=== PATIENT | female | born 1950 | race Caucasian/White ===

== ENCOUNTER 2017-11-29 14:08 | Inpatient (IN) | payer OTHER ==
--- NOTE | 2017-11-29 14:34 | PDOC ---
Rapid Medical Evaluation Chief Complaint: Pain Medical Evaluation: Allergies Allergy/AdvReac Type Severity Reaction Status Date / Time No Known Allergies Allergy Verified 06/03/16 15:07 Vital Signs Temp Pulse Resp BP Pulse Ox 98.3 F 92 H 36 H 133/72 86 L 11/29/17 14:15 11/29/17 14:15 11/29/17 14:15 11/29/17 14:15 11/29/17 14:15 11/29/17 14:31 I have performed a brief in-person evaluation of this patient. The patient presents with a chief complaint of: Worsening abd distension. H/o HTN, HCV cirrhosis, no recent LVP, unable to bear weight. Sent from PMD, Dr Arango Pertinent physical exam findings: Hypoxic and tachypneic w/ abd distension I have ordered the following:labs/ekg/cxr The patient will proceed to the ED for further evaluation. 11/29/17 14:32 11/29/17 14:34 Discharge Disposition - Diagnosis Ascites Qualifiers: Ascites type: other type Qualified Code(s): R18.8 - Other ascites - Referrals Referrals: Jose Manuel Arango MD, MD [Primary Care Provider] - - Patient Instructions - Post Discharge Activity
[2017-11-29 14:55] VITALS: BMI 27.4
[2017-11-29 14:58] LABS: BASO % 0.7 % (0-2.0); HEMATOCRIT 36.7 % (32.4-45.2); HEMOGLOBIN 12.6 GM/dL (10.7-15.3); LYMPH % 14.5 % (8-40); MCH 32.2 pg (25.7-33.7); MCHC 34.5 g/dl (32.0-36.0); MEAN CELL VOLUME 93.4 fl (80-96); MEAN PLT VOLUME 8.4 fl (7.5-11.1); MONO % 12.6 % (3.8-10.2); NEUT % 71.2 % (42.8-82.8); PLATELET COUNT 140 K/MM3 (134-434); RBC 3.93 M/mm3 (3.60-5.2); RDW 15.2 % (11.6-15.6); WHITE BLOOD COUNT 7.7 K/mm3 (4.0-10.0)
[2017-11-29 15:24] LABS: ALBUMIN 2.5 g/dl (3.4-5.0); ANION GAP 10 (8-16); BLOOD UREA NITROGEN 13 mg/dL (7-18); CALCIUM 8.7 mg/dL (8.5-10.1); CHLORIDE 104 mmol/L (98-107); CO2 24 mmol/L (21-32); CREATININE 0.8 mg/dL (0.55-1.02); GLUCOSE,RANDOM 124 mg/dL (74-106); LIPASE 62 U/L (73-393); SGPT/ALT 67 U/L (12-78); SODIUM 138 mmol/L (136-145)
[2017-11-29 15:25] LABS: ALK PHOS 75 U/L (45-117); BILIRUBIN,TOTAL 2.4 mg/dL (0.2-1.0); TOT PROT 7.9 g/dl (6.4-8.2)
[2017-11-29 15:44] LABS: POTASSIUM 4.8 mmol/L (3.5-5.1); SGOT/AST 214 U/L (15-37)
--- NOTE | 2017-11-29 16:08 | PDOC ---
History of Present Illness - General History Source: Patient, Spouse Exam Limitations: Dementia - History of Present Illness Initial Comments: 11/29/17 16:52 The patient is a 67 year old female, with a significant past medical history of dementia, chronic UTI, hypertension, cirrhosis, hepatitis C, and anxiety, who presents to the emergency department with abdominal distension, increased dyspnea and cough for several days. Per significant other, he has noted patient has increased dyspnea on exertion, to the point where she can only go up 3-4 stairs at a time before she has to stop to catch her breath. Partner also notes patient has a dry nonproductive cough, but denies any fever, chills, headache, or dizziness. Partner notes increased abdominal distension, but states patient has not complained of abdominal pain, nausea, vomiting, diarrhea, or constipation. Patient saw her PCP Dr. Arango, who noted abdominal distension and recommended further evaluation in the ER. Patient was evaluated by GI in the past, who stated patients evaluation was normal. Patient denies any chest pain, diaphoresis, or palpitations. Patient denies any dysuria, hematuria, frequency, or urgency. She denies any recent travel or sick contacts. Allergies: NKDA Past Surgical History: None reported Social History: Former ETOH use. Non smoker. No recreational drug use. PCP: Dr. Arango <Jose Mcdonough - Last Filed: 11/29/17 16:52> <Ryann Coelho - Last Filed: 11/29/17 17:26> - General Chief Complaint: Pain Stated Complaint: ABD PAIN SENT BY PCP Time Seen by Provider: 11/29/17 14:35 Past History <Jose Mcdonough - Last Filed: 11/29/17 16:52> - Past Medical History Anemia: No Asthma: No Cancer: No Cardiac Disorders: No CVA: No COPD: No CHF: No Dementia: Yes Diabetes: No GI Disorders: No Disorders: Yes (CHRONIC UTI) HTN: Yes Hypercholesterolemia: No Liver Disease: Yes (CIRRHOSIS, HEP C) Psychiatric Problems: Yes (ANXIETY) Seizures: No Thyroid Disease: No - Surgical History Abdominal Surgery: No Appendectomy: No Cardiac Surgery: No Cholecystectomy: No Lung Surgery: No Neurologic Surgery: No Orthopedic Surgery: No - Suicide/Smoking/Psychosocial Hx Smoking History: Never smoked Have you smoked in the past 12 months: No Hx Alcohol Use: No Drug/Substance Use Hx: No Substance Use Type: None Hx Substance Use Treatment: No <Ryann Coelho - Last Filed: 11/29/17 17:26> - Past Medical History Allergies/Adverse Reactions: Allergies Allergy/AdvReac Type Severity Reaction Status Date / Time No Known Allergies Allergy Verified 06/03/16 15:07 Home Medications: Ambulatory Orders Hydrocodone/Acetaminophen [Vicodin 5-300 mg Tablet] 1 each PO DAILY PRN Amlodipine Besylate [Norvasc -] 10 mg PO DAILY 11/01/14 Metoprolol Succinate [Toprol XL -] 25 mg PO DAILY 11/01/14 Risperidone [Risperdal] 2 mg PO DAILY 11/01/14 traMADol HCL [Ultram -] 50 mg PO BID 11/01/14 Oxybutynin Chloride [Oxybutynin Chloride ER] 15 mg PO DAILY #30 tab.er.24 Zolpidem Tartrate [Ambien] 5 mg PO HS #30 tablet 11/04/14 Cephalexin Monohydrate [Keflex -] 500 mg PO BID #14 capsule 06/07/16 Lidocaine 5% Patch [Lidoderm -] 1 patch TP DAILY #20 patch 06/07/16 Review of Systems - Review of Systems Able to Perform ROS?: Yes Comments:: 11/29/17 16:52 GENERAL/CONSTITUTIONAL: No fever or chills. No weakness. HEAD, EYES, EARS, NOSE AND THROAT: No change in vision. No ear pain or discharge. No sore throat. GASTROINTESTINAL: +Abdominal distension. No nausea, vomiting, diarrhea or constipation. GENITOURINARY: No dysuria, frequency, or change in urination. CARDIOVASCULAR: +Shortness of breath. No chest pain. RESPIRATORY: +Shortness of breath on exertion, dry cough. No wheezing, or hemoptysis. MUSCULOSKELETAL: No joint or muscle swelling or pain. No neck or back pain. SKIN: No rash NEUROLOGIC: No headache, vertigo, loss of consciousness, or change in strength/ sensation. ENDOCRINE: No increased thirst. No abnormal weight change. HEMATOLOGIC/LYMPHATIC: No anemia, easy bleeding, or history of blood clots. ALLERGIC/IMMUNOLOGIC: No hives or skin allergy. <Jose Mcdonough - Last Filed: 11/29/17 16:52> *Physical Exam - Vital Signs Last Vital Signs Temp Pulse Resp BP Pulse Ox 98.3 F 92 H 36 H 133/72 86 L 11/29/17 14:15 11/29/17 14:15 11/29/17 14:15 11/29/17 14:15 11/29/17 14:15 - Physical Exam Comments: 11/29/17 16:52 Constitutional: Awake, alert, oriented to self. Mild respiratory distress. Initially hypoxic to 86 on room air, now on 2 L appears to be breathing better and able to lay flat Head: Normocephalic. Atraumatic Eyes: PERRL. EOMI. Conjunctivae are not pale. ENT: Mucous membranes are moist and intact. Posterior pharynx without exudates or erythema. Uvula midline. Neck: Supple. Full ROM. No lymphadenopathy. Cardiovascular: Systolic ejection murmur. Regular rate. Regular rhythm. Distal pulses are 2+ and symmetric. Pulmonary/Chest: Soft rales at the bases bilaterally. No wheezing, or rhonchi. Abdominal: Abdominal distension, with fluid wave and ascites. There is no tenderness. No rebound, guarding or rigidity. No organomegaly. No palpable masses. Back: No CVA tenderness. Musculoskeletal: 3+ pitting edema bilaterally. No cyanosis. No clubbing. Full range of motion in all extremities. No calf tenderness. Radial/pedal pulses are intact and 2+ bilaterally Skin: Skin is warm and dry. No petechiae. No purpura. Neurological: Alert and oriented to person, place, and time. Cranial nerves II -XII are grossly intact. Normal speech. Strength is grossly symmetric. No sensory deficits. Psychiatric: Good eye contact. Normal interaction, affect and behavior. <Jose Mcdonough - Last Filed: 11/29/17 16:52> - Vital Signs Last Vital Signs Temp Pulse Resp BP Pulse Ox 98.3 F 92 H 36 H 133/72 86 L 11/29/17 14:15 11/29/17 14:15 11/29/17 14:15 11/29/17 14:15 11/29/17 14:15 <Ryann Coelho - Last Filed: 11/29/17 17:26> Heart Score/ECG Review - ECG Intrepretation Comment:: 11/29/17 16:24 sinus at 89, nl axis, nl interval, t wave flattening diffusely, mild st depression v5-6 <Ryann Coelho - Last Filed: 11/29/17 17:26> ED Treatment Course - LABORATORY CBC & Chemistry Diagram: 11/29/17 14:48 11/29/17 14:48 - ADDITIONAL ORDERS Additional order review: Laboratory Results 11/29/17 14:48 Sodium 138 Potassium 4.8 Chloride 104 Carbon Dioxide 24 Anion Gap 10 BUN 13 Creatinine 0.8 Creat Clearance w eGFR > 60 Random Glucose 124 H Calcium 8.7 Total Bilirubin 2.4 H D AST 214 H ALT 67 Alkaline Phosphatase 75 Total Protein 7.9 Albumin 2.5 L Lipase 62 L 11/29/17 14:48 RBC 3.93 MCV 93.4 MCHC 34.5 RDW 15.2 MPV 8.4 Neutrophils % 71.2 Lymphocytes % 14.5 D Monocytes % 12.6 H Eosinophils % 1.0 Basophils % 0.7 <Jose Mcdonough - Last Filed: 11/29/17 16:52> - LABORATORY CBC & Chemistry Diagram: 11/29/17 14:48 11/29/17 14:48 - ADDITIONAL ORDERS Additional order review: Laboratory Results 11/29/17 14:48 Sodium 138 Potassium 4.8 Chloride 104 Carbon Dioxide 24 Anion Gap 10 BUN 13 Creatinine 0.8 Creat Clearance w eGFR > 60 Random Glucose 124 H Calcium 8.7 Total Bilirubin 2.4 H D AST 214 H ALT 67 Alkaline Phosphatase 75 Total Protein 7.9 Albumin 2.5 L Lipase 62 L 11/29/17 14:48 RBC 3.93 MCV 93.4 MCHC 34.5 RDW 15.2 MPV 8.4 Neutrophils % 71.2 Lymphocytes % 14.5 D Monocytes % 12.6 H Eosinophils % 1.0 Basophils % 0.7 <Ryann Coelho - Last Filed: 11/29/17 17:26> Medical Decision Making - Medical Decision Making 11/29/17 16:53 First call placed to Dr. Ramey at 16:27. Case discussed at this time. <Jose Mcdonough - Last Filed: 11/29/17 16:52> - Medical Decision Making 11/29/17 16:18 a/p: 67yo female with BRAY, SOB, Cough, abd distension, hx of hep c, cirrhosis -generalized anasarca on exam -will need IR paracentesis -cough is nonproductive, no fevers/chills -hypoxic in triage, now on 2L nc -will need admission for liver failure, ascites, paracentesis, new murmur on heart exam -will need GI eval and cards eval -PMD dr. Arango -IR paracentesis ordered -no gi bleeding -denies urinary complaints - 11/29/17 16:[address] Ramey who accepts pt to service consults placed to DR. Moffett and dr. cassidy Paracentesis ordered 11/29/17 16:58 family at the bedside updated on the plan <Ryann Coelho - Last Filed: 11/29/17 17:26> *DC/Admit/Observation/Transfer - Attestations Scribe Attestion: 11/29/17 16:53 Documentation prepared by Jose Mcdonough, acting as healthcare or medical for Ryann Coelho DO. <Jose Mcdonough - Last Filed: 11/29/17 16:52> - Discharge Dispostion Decision to Admit order: Yes - Attestations Physician Attestion: 11/29/17 16:32 I, Dr. Ryann Coelho DO, attest that this document has been prepared under my direction and personally reviewed by me in its entirety. I further attest, that it accurately reflects all work, treatment, procedures and medical decision -making performed by me. <Ryann Coelho - Last Filed: 11/29/17 17:26> Diagnosis at time of Disposition: 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, Dyspnea, Hypoxia Ascites Qualifiers: Ascites type: other type Qualified Code(s): R18.8 - Other ascites - Discharge Dispostion Condition at time of disposition: Guarded
[2017-11-29] MEDS ORDERED: FUROSEMIDE 40 MG/4 ML INJECTABLE VIAL IVPUSH ONE (16:28)
[2017-11-29] MEDS ORDERED: FUROSEMIDE 40 MG/4 ML INJECTABLE VIAL ONE (17:01)
[2017-11-29 17:16] LABS: PH,URINE 6.5 (5.0-8.0); URINE APPEARANCE CLEAR; URINE BILIRUBIN NEGATIVE (<2.0 mg/dL); URINE COLOR YELLOW; URINE GLUCOSE (UA) NEGATIVE (NEGATIVE); URINE KETONE NEGATIVE (NEGATIVE); URINE LEUK ESTERASE NEGATIVE (NEGATIVE); URINE NITRITE NEGATIVE (NEGATIVE); URINE PROTEIN NEGATIVE (NEGATIVE); URINE UROBILINOGEN NORMAL mg/dL (0.2-1.0)
[2017-11-29 17:26] LABS: INR 1.43 (0.82-1.09); PROTHROMBIN TIME (PATIENT) 16.2 SEC (9.7-13.0)
[2017-11-29 17:51] LABS: ARTERIAL BLOOD GAS PCO2 35.8 mmHg (35-45); ARTERIAL BLOOD GAS PO2 66.2 mmHg (80-100); ARTERIAL BLOOD GAS pH 7.47 (7.35-7.45)
[2017-11-29 17:52] LABS: ALLENS TEST POSITIVE; ARTERIAL BLD GAS O2 SATURATION 92.7 % (90-98.9); ARTERIAL BLOOD GAS BASE EXCESS 2.7 meq/l (-2-2)
[2017-11-29] MEDS: HEPARIN NA (PORCINE) 5,000 UNITS/ML 1ML VIAL SQ SCH (22:08)
[2017-11-30 08:57] LABS: ALBUMIN 2.2 g/dl (3.4-5.0); ALK PHOS 67 U/L (45-117); ANION GAP 9 (8-16); BILIRUBIN,TOTAL 2.2 mg/dL (0.2-1.0); BLOOD UREA NITROGEN 10 mg/dL (7-18); CHLORIDE 105 mmol/L (98-107); CHOLESTEROL 162 mg/dL (50-200); CO2 28 mmol/L (21-32); CREATININE 0.4 mg/dL (0.55-1.02); HDL CHOLESTEROL 34 mg/dL (40-60); MAGNESIUM 1.7 mg/dL (1.8-2.4); SGOT/AST 151 U/L (15-37); SGPT/ALT 58 U/L (12-78); SODIUM 142 mmol/L (136-145); TOT PROT 6.5 g/dl (6.4-8.2); TRIGLYCERIDES 61 mg/dL (35-160)
[2017-11-30 09:04] LABS: BASO % 0.8 % (0-2.0); EOS % 3.1 % (0-4.5); HEMATOCRIT 33.6 % (32.4-45.2); HEMOGLOBIN 11.7 GM/dL (10.7-15.3); LYMPH % 14.7 % (8-40); MCH 32.3 pg (25.7-33.7); MCHC 34.8 g/dl (32.0-36.0); MEAN CELL VOLUME 92.9 fl (80-96); MEAN PLT VOLUME 8.4 fl (7.5-11.1); MONO % 8.9 % (3.8-10.2); NEUT % 72.5 % (42.8-82.8); PLATELET COUNT 106 K/MM3 (134-434); RBC 3.61 M/mm3 (3.60-5.2); RDW 15.3 % (11.6-15.6); WHITE BLOOD COUNT 5.2 K/mm3 (4.0-10.0)
--- NOTE | 2017-11-30 09:40 | HP ---
Admitting History and Physical - Admission History of Present Illness: 67 year old female, with a significant past medical history of dementia, chronic UTI, hypertension, cirrhosis, hepatitis C, and anxiety, who presents to the emergency department with abdominal distension, increased dyspnea and cough for several days. Per significant other, he has noted patient has increased dyspnea on exertion, to the point where she can only go up 3-4 stairs at a time before she has to stop to catch her breath. Partner also notes patient has a dry nonproductive cough, but denies any fever, chills, headache, or dizziness. Partner notes increased abdominal distension, but states patient has not complained of abdominal pain, nausea, vomiting, diarrhea, or constipation. Patient saw her PCP Dr. Arango, who noted abdominal distension and recommended further evaluation in the ER. 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 Gastrointestinal: Yes: Other (cirrhosis) Infectious Disease: Yes: Other (hep c) Psych: Yes: Anxiety, Other - Smoking History Smoking history: Never smoked Have you smoked in the past 12 months: No - Alcohol/Substance Use Hx Alcohol Use: No History of Substance Use: reports: None - Social History ADL: Family Assistance History of Recent Travel: No Home Medications - Allergies Allergies/Adverse Reactions: Allergies Allergy/AdvReac Type Severity Reaction Status Date / Time No Known Allergies Allergy Verified 06/03/16 15:07 - Home Medications Home Medications: Ambulatory Orders Hydrocodone/Acetaminophen [Vicodin 5-300 mg Tablet] 1 each PO DAILY PRN Amlodipine Besylate [Norvasc -] 10 mg PO DAILY 11/01/14 Metoprolol Succinate [Toprol XL -] 25 mg PO DAILY 11/01/14 Risperidone [Risperdal] 2 mg PO DAILY 11/01/14 traMADol HCL [Ultram -] 50 mg PO BID 11/01/14 Oxybutynin Chloride [Oxybutynin Chloride ER] 15 mg PO DAILY #30 tab.er.24 Zolpidem Tartrate [Ambien] 5 mg PO HS #30 tablet 11/04/14 Cephalexin Monohydrate [Keflex -] 500 mg PO BID #14 capsule 06/07/16 Lidocaine 5% Patch [Lidoderm -] 1 patch TP DAILY #20 patch 06/07/16 Physical Examination Vital Signs: Vital Signs Temperature 98 F 06/13/18 21:00 Pulse Rate 78 11/29/17 21:00 Respiratory Rate 20 11/29/17 21:00 Blood Pressure 125/69 11/29/17 21:00 O2 Sat by Pulse Oximetry (%) 92 L 11/29/17 21:00 Cardiovascular: Yes: Murmur, S1, S2 Respiratory: Yes: On Nasal O2, Rales Gastrointestinal: Yes: Normal Bowel Sounds, Soft, Ascites, Distention Edema: No Neurological: Yes: Alert, Confusion Labs: CBC, BMP 11/29/17 14:48 11/29/17 14:48 Imaging - Results X-ray: Report Reviewed Problem List - Problems (1) Ascites Assessment/Plan: CT SCAN GI CONSULT PARACENTESIS DIURESIS Code(s): R18.8 - OTHER ASCITES Qualifiers: Ascites type: other type Qualified Code(s): R18.8 - Other ascites (2) CHF (congestive heart failure) Assessment/Plan: -IV LASIX -ECHO -CARDIO -FOLLOW LABS Code(s): I50.9 - HEART FAILURE, UNSPECIFIED (3) Murmur Assessment/Plan: -ECHO Code(s): R01.1 - CARDIAC MURMUR, UNSPECIFIED (4) 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
[2017-11-30] MEDS ORDERED: metoPROLOL SUCCINATE 25 MG TAB.SR.24H (FP) PO SCH (10:00)
[2017-11-30] MEDS: HEPARIN NA (PORCINE) 5,000 UNITS/ML 1ML VIAL SQ SCH ×3 (10:34→22:00)
[2017-11-30 10:46] LABS: GLUCOSE,RANDOM 80 mg/dL (74-106)
[2017-11-30 10:47] LABS: POTASSIUM 2.8 mmol/L (3.5-5.1)
--- NOTE | 2017-11-30 11:13 | EKG ---
Test Reason : Blood Pressure : / mmHG Vent. Rate : 089 BPM Atrial Rate : 089 BPM P-R Int : 148 ms QRS Dur : 088 ms QT Int : 396 ms P-R-T Axes : 099 069 091 degrees QTc Int : 481 ms POOR DATA QUALITY, INTERPRETATION MAY BE ADVERSELY AFFECTED NORMAL SINUS RHYTHM NONSPECIFIC ST ABNORMALITY ABNORMAL ECG WHEN COMPARED WITH ECG OF 03-JUN-2016 17:16, NO SIGNIFICANT CHANGE WAS FOUND Confirmed by CLAIRE WASHINGTON MD ([id number]) on 11/30/2017 11:12:45 AM Referred By: Confirmed By:CLAIRE WASHINGTON MD
[2017-11-30] MEDS: FUROSEMIDE 40 MG/4 ML INJECTABLE VIAL IVPUSH SCH (12:45)
[2017-11-30] MEDS: amLODIPine BESYLATE 10 MG TABLET (FP) PO SCH (12:45)
[2017-11-30] MEDS: LIDOCAINE 5% TOPICAL PATCH TP SCH (12:45)
--- NOTE | 2017-11-30 13:00 | CON.CARD ---
Consult Consult Specialty:: Cardiology Reason for Consultation:: Dyspnea - History of Present Illness History of Present Illness: 67 year old female, with medical history of dementia, hypertension, cirrhosis, hepatitis C, and anxiety, who presents to the emergency department with abdominal distension, increased dyspnea and cough for several days. In ER ws mildly hypoxic. She is confused and cannot provide any history. She is post paracentesis. 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 no documented history of tb or hepatitis - Alcohol/Substance Use Hx Alcohol Use: No History of Substance Use: reports: None - Smoking History Smoking history: Never smoked Have you smoked in the past 12 months: No - Social History Usual Living Arrangement: With Significant Other ADL: Family Assistance History of Recent Travel: No Home Medications - Allergies Allergies/Adverse Reactions: Allergies Allergy/AdvReac Type Severity Reaction Status Date / Time No Known Allergies Allergy Verified 06/03/16 15:07 - Home Medications Home Medications: Ambulatory Orders Hydrocodone/Acetaminophen [Vicodin 5-300 mg Tablet] 1 each PO DAILY PRN Amlodipine Besylate [Norvasc -] 10 mg PO DAILY 11/01/14 Metoprolol Succinate [Toprol XL -] 25 mg PO DAILY 11/01/14 Risperidone [Risperdal] 2 mg PO DAILY 11/01/14 traMADol HCL [Ultram -] 50 mg PO BID 11/01/14 Oxybutynin Chloride [Oxybutynin Chloride ER] 15 mg PO DAILY #30 tab.er.24 Zolpidem Tartrate [Ambien] 5 mg PO HS #30 tablet 11/04/14 Cephalexin Monohydrate [Keflex -] 500 mg PO BID #14 capsule 06/07/16 Lidocaine 5% Patch [Lidoderm -] 1 patch TP DAILY #20 patch 06/07/16 Family Disease History - Family Disease History Family History: Unable to Obtain Review of Systems Unable to obtain ROS, reason: Dementia Vital Signs: Vital Signs Temperature 98.8 F 11/30/17 09:00 Pulse Rate 76 11/30/17 09:00 Respiratory Rate 20 11/30/17 09:00 Blood Pressure 143/73 11/30/17 09:00 O2 Sat by Pulse Oximetry (%) 92 L 11/30/17 09:00 Constitutional: Yes: Calm, Thin Eyes: Yes: Conjunctiva Clear, EOM Intact HENT: Yes: Atraumatic, Normocephalic Neck: Yes: Supple, Trachea Midline Respiratory: Yes: Other (poor effort. No rales or wheezing.) Gastrointestinal: Yes: Normal Bowel Sounds Cardiovascular: Yes: Regular Rate and Rhythm. No: Gallop, Rub JVD: No Carotid Bruit: No Heart Sounds: Yes: S1, S2 Murmur: Yes: Systolic Murmur, Grade 3 (LLSB) Edema: Yes Edema: LLE: 1+, RLE: 1+ Neurological: Yes: Confusion - Other Data Labs, Other Data: CBC, BMP 11/30/17 06:00 11/30/17 05:30 INR, PTT INR 1.43 (0.82-1.09) H 11/29/17 16:56 Troponin, BNP 11/29/17 11/29/17 11/30/17 16:56 16:56 05:30 Troponin I 0.03 0.02 B-Natriuretic Peptide 629.76 H Troponin, BNP 11/29/17 11/29/17 11/30/17 16:56 16:56 05:30 Troponin I 0.03 0.02 B-Natriuretic Peptide 629.76 H NSR NSST changes. Imaging - Results Chest X-ray: Report Reviewed (Cardiomegally with congestive changes.) Problem List - Problems (1) Ascites Code(s): R18.8 - OTHER ASCITES Qualifiers: Ascites type: other type Qualified Code(s): R18.8 - Other ascites (2) CHF (congestive heart failure) Code(s): I50.9 - HEART FAILURE, UNSPECIFIED (3) 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 Code(s): B18.2 - CHRONIC VIRAL HEPATITIS C; K74.60 - UNSPECIFIED CIRRHOSIS OF LIVER Assessment/Plan 67 yo F with hep C and cirrhosis and dementia who is admitted with abdominal distention, volume overload and confusion. Exam notable for a significant systolic murmur. Recommend potassium and magnesium supplementation Continue with IV diuretics Will order echocardiogram.
[2017-11-30] MEDS ORDERED: POTASSIUM CHLORIDE TABS 20 MEQ TABLET.ER (FP) PO ONE (13:05)
[2017-11-30] MEDS ORDERED: MAGNESIUM OXIDE 400 MG TABLET (FP) PO ONE (13:06)
[2017-11-30] MEDS ORDERED: METOPROLOL TARTRATE 5 MG/5 ML VIAL IVPUSH PRN (13:08)
[2017-11-30] MEDS ORDERED: MAGNESIUM 1GM/D5W - 1 GM/100 ML IVPB IVPB ONE (14:00)
--- NOTE | 2017-11-30 14:26 | CONSULT ---
Admitting History and Physical - Primary Care Physician PCP: Alphonse Ramey - Admission History of Present Illness: History of Present Illness: 67 year old female, with a significant past medical history of dementia, chronic UTI, hypertension, cirrhosis, hepatitis C, and anxiety, who presents to the emergency department with abdominal distension, increased dyspnea and cough for several days. Per significant other, he has noted patient has increased dyspnea on exertion, to the point where she can only go up 3-4 stairs at a time before she has to stop to catch her breath. Partner also notes patient has a dry nonproductive cough, but denies any fever, chills, headache, or dizziness. Partner notes increased abdominal distension, but states patient has not complained of abdominal pain, nausea, vomiting, diarrhea, or constipation. Patient saw her PCP Dr. Arango, who noted abdominal distension and recommended further evaluation in the ER. This is my first consult with this pt. Pt's reports onset of weak voice a week or two ago. He feels his is generally oriented with good memory? 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 Gastrointestinal: Yes: Other (cirrhosis) Infectious Disease: Yes: Other (hep c) Psych: Yes: Anxiety, Other - Smoking History Smoking history: Never smoked Have you smoked in the past 12 months: No - Alcohol/Substance Use Hx Alcohol Use: No History of Substance Use: reports: None - Social History ADL: Family Assistance History of Recent Travel: No History - Admission Reason For Visit: ASCITES; DYSPNEA; HYPOXIA - Diagnostics X-ray: Report Reviewed - General Mental Status: Awake and Alert, Able to Follow Commands, Forgetful, Vague, Confused ([facility], 48 yo.) Attention: Intact Ability to Follow Directions: Fair Head/Neck Control: Fair - Hearing Hearing: Impaired, Both Hearing Aide: Yes With Patient: Yes Speech Evaluation - Communication Primary Language: WELSH Oral Expression Ability: Yes: Moderate Impairment - Speech Production Intelligibility: Yes: Moderately Impaired - Speech Characteristics Voice Loudness: Moderately Soft/Quiet Voice Pitch: Yes: Mildly High Voice Phonatory-based Quality: Yes: Breathy, Weak, Dysphonia Speech Pattern: Impaired Nasal Resonance: Normal Articulation: Yes: Precise - Language/Auditory Comprehension Follows: Yes: 1 Stage Simple Commands - Language/Verbal Expression Able to Communicate Wants and Needs: Yes: WNL - Swallow Evaluation/Bedside Assessment Current Nutritional Intake: NPO Oral Secretions: Yes: WFL Dentition: Yes: Missing Teeth Facial Symmetry at Rest: Symmetrical Facial Symmetry on Retraction: Symmetrical Against Resistance Opening: Normal Against Resistance Closing: Normal Pucker Lips: Normal Smile: Normal Lingual Movement: Normal, Symmetric Lingual Speed of Movement: Normal Lingual Movement Strgth Against Opposition: Normal Lingual Movement Characteristics: Normal Laryngeal Elevation: Impaired Laryngeal Movement: Labored,delay initiation Rate of Intake: WFL Labial Seal: WFL Oral Prep Time: WFL A-P Transit: WFL Pocketing: None Timing of Swallow: Delayed Coughing/Throat Clear: Yes (thin liquid) Change in Voice: Yes Recommendations - Speech Evaluation, Impression/Plan Impression: Severe dysphonia. r/o vocal cord paralysis. Aspiration on thin liquid. - Dysphagia Impressions/Plan Swallowing Skills: Impaired Dysphagia Impressions: Moderate Impairment *Silent aspiration: cannot be R/O at bedside Recommendations: ENT Consult (Consider laryngoscopy. r/o vocal cord pathology/ dysfunction/paralysis), Modified Barium Swallow (ordered) - Recommendations Diet Consistency: NPO Medication Administration: Crushed with applesauce Liquids: NPO
[2017-11-30] MEDS: POTASSIUM CHLORIDE 10 MEQ in SODIUM CHLORIDE 100 ML IVPB SCH ×3 (14:43→17:34)
--- NOTE | 2017-11-30 15:44 | CON.GI ---
Consult Consult Specialty:: Gastroenterology Referred by:: Dr. Ramey Reason for Consultation:: Abdominal Distention - History of Present Illness Chief Complaint: Shortness of breath History of Present Illness: Patient is a 67 year old female who was sent over by her PCP for shortness of breath and increasing abdominal distention. Patient is poor historian and most information obtained from medical records. As per patients significant other, patient was found to have increasing shortness of breath as well as dyspnea on exertion for the past several days associated with a dry cough. Patient's significant other also noticed her abdomen has been increasing in size and was then sent to her PMD who found her to be hypoxic and tachypneic. Patient otherwise denied any abdominal pain, fever, chills, nausea, vomiting, palpitations, diarrhea, constipation. 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 no documented history of tb or hepatitis - Alcohol/Substance Use Hx Alcohol Use: No History of Substance Use: reports: None - Smoking History Smoking history: Never smoked Have you smoked in the past 12 months: No - Social History Usual Living Arrangement: With Significant Other ADL: Family Assistance History of Recent Travel: No <Sabine Hale - Last Filed: 11/30/17 16:05> Home Medications <Sabine Hale - Last Filed: 11/30/17 16:05> <Graeme Edwards - Last Filed: 12/01/17 09:02> - Allergies Allergies/Adverse Reactions: Allergies Allergy/AdvReac Type Severity Reaction Status Date / Time No Known Allergies Allergy Verified 06/03/16 15:07 - Home Medications Home Medications: Ambulatory Orders Hydrocodone/Acetaminophen [Vicodin 5-300 mg Tablet] 1 each PO DAILY PRN Amlodipine Besylate [Norvasc -] 10 mg PO DAILY 11/01/14 Metoprolol Succinate [Toprol XL -] 25 mg PO DAILY 11/01/14 Risperidone [Risperdal] 2 mg PO DAILY 11/01/14 traMADol HCL [Ultram -] 50 mg PO BID 11/01/14 Oxybutynin Chloride [Oxybutynin Chloride ER] 15 mg PO DAILY #30 tab.er.24 Zolpidem Tartrate [Ambien] 5 mg PO HS #30 tablet 11/04/14 Cephalexin Monohydrate [Keflex -] 500 mg PO BID #14 capsule 06/07/16 Lidocaine 5% Patch [Lidoderm -] 1 patch TP DAILY #20 patch 06/07/16 Family Disease History - Family Disease History Family History: Unable to Obtain <Sabine Hale - Last Filed: 11/30/17 16:05> Review of Systems Unable to obtain ROS, reason: Clinical condition <Sabine Hale - Last Filed: 11/30/17 16:05> Physical Exam-GI Vital Signs: Vital Signs Temperature 98 F 11/30/17 15:00 Pulse Rate 85 11/30/17 15:00 Respiratory Rate 20 11/30/17 15:00 Blood Pressure 128/66 11/30/17 15:00 O2 Sat by Pulse Oximetry (%) 92 L 11/30/17 09:00 Constitutional: Yes: No Distress, Calm, Thin Eyes: Yes: Conjunctiva Clear, PERRL, Sclera Icterus HENT: Yes: Atraumatic, Normocephalic, Other (poor dentition) Neck: Yes: WNL, Supple, Trachea Midline. No: Lymphadenopathy Cardiovascular: Yes: Regular Rate and Rhythm, Murmur (3-4/6 systolic murmur at the LLSB), S1, S2 Respiratory: Yes: WNL, Regular, CTA Bilaterally Gastrointestinal Inspection: Yes: Distention ...Auscultate: Yes: Normoactive Bowel Sounds ...Palpate: Yes: Hepatomegaly. No: Guarding, Tenderness, Tenderness, Epigastium ...Percussion: Yes: Dullness Extremities: No: Calf Tenderness, Cold, Cool, Cyanosis, Erythema Edema: Yes Edema: LLE: Trace, RLE: Trace Peripheral Pulses WNL: No Neurological: Yes: Alert. No: Facial Droop, Tremors Labs: CBC, BMP 11/30/17 06:00 11/30/17 05:30 INR, PTT INR 1.43 (0.82-1.09) H 11/29/17 16:56 <Sabine Hale - Last Filed: 11/30/17 16:05> Vital Signs: Vital Signs Temperature 98.1 F 12/01/17 08:14 Pulse Rate 64 12/01/17 08:14 Respiratory Rate 20 12/01/17 08:14 Blood Pressure 120/59 12/01/17 08:14 O2 Sat by Pulse Oximetry (%) 94 L 11/30/17 20:41 Labs: CBC, BMP 11/30/17 06:00 11/30/17 05:30 INR, PTT INR 1.43 (0.82-1.09) H 11/29/17 16:56 <Graeme Edwards - Last Filed: 12/01/17 09:02> Imaging - Results Ultrasound: Image Reviewed <Sabine Hale - Last Filed: 11/30/17 16:05> Problem List - Problems (1) Hepatic encephalopathy Code(s): K72.90 - HEPATIC FAILURE, UNSPECIFIED WITHOUT COMA (2) Ascites Code(s): R18.8 - OTHER ASCITES Qualifiers: Ascites type: other type Qualified Code(s): R18.8 - Other ascites (3) 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 Patient's reported that patient is usually alert and oriented. Patient is s/p U/S guided paracentesis with final report pending and cytology pending. Patient's clinical picture shows hepatic encephalopathy likely secondary to liver cirrhosis. Patient will need Lactulose 20mg BID ( titrate to about 4 bowels a day), Aldactone 50 bid, Lasix, and start on Rifaximin 550mg BID. Continue to monitor electrolytes and Hepatic panel daily. Case discussed with Dr. Jerry Hale MD-PGY2 <Sabine Hale - Last Filed: 11/30/17 16:05> the pt was examined and discussed with the resident. A&P as above. Follow fluid analysis <Jerry,Graeme - Last Filed: 12/01/17 09:02>
[2017-11-30] MEDS ORDERED: SPIRONOLACTONE 25 MG TABLET (FP) PO SCH (16:15)
[2017-11-30 18:32] LABS: TOTAL PROTEIN,PERITONEAL FLUID 1 gm/dL
[2017-11-30 19:30] LABS: PERITONEAL RBC 284 /mm3
[2017-11-30 20:21] LABS: PERITONEAL FLUID NEUTROPHIL 14 %
[2017-11-30 20:22] LABS: PERITONEAL FLUID LYMPHOCYTE 6 %; PERITONEAL FLUID MACROPHAGE 64 %; PERITONEAL FLUID MESOTHELIAL 14 %; PERITONEAL FLUID MONOCYTE 2 %
[2017-11-30] MEDS: LACTULOSE 20 GM/30 ML UDC (FOR ORAL USE ONLY) PO SCH (21:37)
[2017-11-30] MEDS: SPIRONOLACTONE 25 MG TABLET (FP) PO SCH (21:38)
[2017-11-30] MEDS: LIDOCAINE PATCH REMOVAL MC SCH (21:39)
[2017-11-30] MEDS: RIFAXIMIN 550 MG TABLET (UD) PO SCH (21:39)
--- NOTE | 2017-11-30 22:31 | CONSULT ---
Consult - text type - Consultation Consultation Note: NEUROLOGY CONSULTATION is greatly appreciated: This 67 yo woman apparently lives with a partner. PMH sig for HTN, Hep C, Dementia. Maintained on Hydrocodone/Acetaminophen; Amlodipine Besylate; Metoprolol; Risperidone 2 mg; traMADol; Oxybutynin; Zolpidem; Cephalexin; Lidocaine 5% Now admitted after 3 -4 days of progressive dyspnea on exertion, increasing abd girth. ABG showed sig hypoxemia, elevated CK and elevated LFT's. Paracentesis showed a non-exudative ascites. Now, Patient complains she "can't talk." Speech and swallowing consultation read and appreciated. MARGO: No head trauma. No bruits. Cor reg. NEURO: Awake, alert. Ox [facility] but not the month or year. Claims she is 40 yo. + Glabella, snout, grasps. The speech is stridorous, dysphonic, whistling but fluent. CN: II-XII are otherwise normal Motor: No drift. Normal strength. Sl increased tone without cogwheeling. Normal reflexes. Toes downgoing Coord: No FTN dystaxia Sensory: Normal. IMP: 1. Moderately severe, B/L cerebral dysfunction (OMS/Chronic) c/w Alzheimer' s disease (AD). 2. R/O Upper airway obstruction/stridor. Agree, this is likely vocal cord paralysis. Consider recurrent laryngeal Neuropathy 3. R/O Toxic-Metabolic encephalopathy exacerbating OMS (Hyperammonemic?) SUGGEST: CT or MRI of brain (C-) Check B12, ammonia, TSH, RPR ENT for direct laryngoscopy. CT of the chest. Review prior w/u and treatment of OMS. Thank you very much, Luis Nichols MD
--- NOTE | 2017-12-01 09:42 | PN ---
Progress Note, Physician - Current Medication List Current Medications: Active Medications Amlodipine Besylate (Norvasc -) 10 mg PO DAILY [facility] Last Admin: 11/30/17 12:45 Dose: 10 mg Furosemide (Lasix Injection -) 40 mg IVPUSH DAILY [facility] Last Admin: 11/30/17 12:45 Dose: 40 mg Heparin Sodium (Porcine) (Heparin -) 5,000 unit SQ BID [facility] Last Admin: 11/30/17 22:00 Dose: 5,000 unit Lactulose (Cephulac (Oral Use)) 20 gm PO BID [facility] Last Admin: 11/30/17 21:37 Dose: 20 gm Lidocaine (Lidoderm Patch -) 1 patch TP DAILY [facility] Last Admin: 11/30/17 12:45 Dose: 1 patch Metoprolol Tartrate (Lopressor Injection -) 5 mg IVPUSH Q4H PRN PRN Reason: HYPERTENSION Miscellaneous (Lidoderm Patch Removal) 1 each MC DAILY@2200 [facility] Last Admin: 11/30/17 21:39 Dose: Not Given Rifaximin (Xifaxan -) 550 mg PO BID [facility] Last Admin: 11/30/17 21:39 Dose: 550 mg Spironolactone (Aldactone -) 50 mg PO BID [facility] Last Admin: 11/30/17 21:38 Dose: 50 mg - Objective Vital Signs: Vital Signs Temperature 98.1 F 12/01/17 08:14 Pulse Rate 64 12/01/17 08:14 Respiratory Rate 20 12/01/17 08:14 Blood Pressure 120/59 12/01/17 08:14 O2 Sat by Pulse Oximetry (%) 94 L 11/30/17 20:41 Cardiovascular: Yes: S1, S2 Respiratory: Yes: Regular, CTA Bilaterally Gastrointestinal: Yes: Normal Bowel Sounds, Soft Labs: CBC, BMP 11/30/17 06:00 11/30/17 05:30 INR, PTT INR 1.43 (0.82-1.09) H 11/29/17 16:56 Problem List - Problems (1) Ascites Assessment/Plan: CT SCAN GI CONSULT PARACENTESIS--AWAIT RESULTS DIURESIS Code(s): R18.8 - OTHER ASCITES Qualifiers: Ascites type: other type Qualified Code(s): R18.8 - Other ascites (2) CHF (congestive heart failure) Assessment/Plan: -IV LASIX -ECHO -CARDIO -FOLLOW LABS Code(s): I50.9 - HEART FAILURE, UNSPECIFIED (3) Murmur Assessment/Plan: -ECHO--MOD Code(s): R01.1 - CARDIAC MURMUR, UNSPECIFIED (4) 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
[2017-12-01] MEDS: FUROSEMIDE 40 MG/4 ML INJECTABLE VIAL IVPUSH SCH (10:48)
[2017-12-01] MEDS: LIDOCAINE 5% TOPICAL PATCH TP SCH (10:48)
[2017-12-01] MEDS: RIFAXIMIN 550 MG TABLET (UD) PO SCH ×2 (10:48→21:42)
[2017-12-01] MEDS: LACTULOSE 20 GM/30 ML UDC (FOR ORAL USE ONLY) PO SCH ×2 (10:48→21:41)
[2017-12-01] MEDS: HEPARIN NA (PORCINE) 5,000 UNITS/ML 1ML VIAL SQ SCH ×2 (10:49→21:40)
[2017-12-01] MEDS: SPIRONOLACTONE 25 MG TABLET (FP) PO SCH ×2 (10:49→21:41)
[2017-12-01 11:00] LABS: BASO % 0.9 % (0-2.0); EOS % 0.7 % (0-4.5); HEMATOCRIT 38.6 % (32.4-45.2); HEMOGLOBIN 13.1 GM/dL (10.7-15.3); MCH 31.9 pg (25.7-33.7); MEAN CELL VOLUME 93.7 fl (80-96); MEAN PLT VOLUME 8.3 fl (7.5-11.1); MONO % 10.6 % (3.8-10.2); NEUT % 67.8 % (42.8-82.8); PLATELET COUNT 108 K/MM3 (134-434); RBC 4.12 M/mm3 (3.60-5.2); RDW 15.3 % (11.6-15.6); WHITE BLOOD COUNT 4.2 K/mm3 (4.0-10.0)
[2017-12-01 11:40] LABS: ANION GAP 5 (8-16); BLOOD UREA NITROGEN 9 mg/dL (7-18); CALCIUM 7.9 mg/dL (8.5-10.1); CHLORIDE 104 mmol/L (98-107); CO2 31 mmol/L (21-32); GLUCOSE,RANDOM 78 mg/dL (74-106); POTASSIUM 3.2 mmol/L (3.5-5.1); SGPT/ALT 56 U/L (12-78); SODIUM 140 mmol/L (136-145)
[2017-12-01 11:47] LABS: ALK PHOS 65 U/L (45-117); BILIRUBIN,TOTAL 2.2 mg/dL (0.2-1.0); CREATININE 0.4 mg/dL (0.55-1.02); SGOT/AST 126 U/L (15-37); TOT PROT 6.2 g/dl (6.4-8.2)
--- NOTE | 2017-12-01 12:35 | PN ---
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 Pending ct chest [place] [facility] [place]
--- NOTE | 2017-12-01 13:01 | PN ---
Progress Note, Physician Chief Complaint: Hoarseness, dysphagia History of Present Illness: The patient is a 67 year old female, with a significant past medical history of dementia, chronic UTI, hypertension, cirrhosis, hepatitis C, and anxiety, who presents to the emergency department with abdominal distension, increased dyspnea and cough for several days. Per significant other, he has noted patient has increased dyspnea on exertion, to the point where she can only go up 3-4 stairs at a time before she has to stop to catch her breath. Partner also notes patient has a dry nonproductive cough, but denies any fever, chills, headache, or dizziness. Partner notes increased abdominal distension, but states patient has not complained of abdominal pain, nausea, vomiting, diarrhea, or constipation. Patient saw her PCP Dr. Arango, who noted abdominal distension and recommended further evaluation in the ER. Patient was evaluated by GI in the past, who stated patients evaluation was normal. Patient denies any chest pain, diaphoresis, or palpitations. Patient denies any dysuria, hematuria, frequency, or urgency. She denies any recent travel or sick contacts. She has inc risk of aspiration on Mod Ba swallow. Chest CT did not show any left upper lung pathology - Current Medication List Current Medications: Active Medications Amlodipine Besylate (Norvasc -) 10 mg PO DAILY [facility] Last Admin: 11/30/17 12:45 Dose: 10 mg Furosemide (Lasix Injection -) 40 mg IVPUSH DAILY [facility] Last Admin: 12/01/17 10:48 Dose: 40 mg Heparin Sodium (Porcine) (Heparin -) 5,000 unit SQ BID [facility] Last Admin: 12/01/17 10:49 Dose: 5,000 unit Lactulose (Cephulac (Oral Use)) 20 gm PO BID [facility] Last Admin: 12/01/17 10:48 Dose: 20 gm Lidocaine (Lidoderm Patch -) 1 patch TP DAILY [facility] Last Admin: 12/01/17 10:48 Dose: 1 patch Metoprolol Tartrate (Lopressor Injection -) 5 mg IVPUSH Q4H PRN PRN Reason: HYPERTENSION Miscellaneous (Lidoderm Patch Removal) 1 each MC DAILY@2200 [facility] Last Admin: 11/30/17 21:39 Dose: Not Given Rifaximin (Xifaxan -) 550 mg PO BID [facility] Last Admin: 12/01/17 10:48 Dose: 550 mg Spironolactone (Aldactone -) 50 mg PO BID [facility] Last Admin: 12/01/17 10:49 Dose: 50 mg - Objective Vital Signs: Vital Signs Temperature 98.1 F 12/01/17 08:14 Pulse Rate 64 12/01/17 08:14 Respiratory Rate 20 12/01/17 09:00 Blood Pressure 120/59 12/01/17 08:14 O2 Sat by Pulse Oximetry (%) 94 L 12/01/17 09:00 Constitutional: Yes: Thin Eyes: Yes: WNL HENT: Yes: WNL Neck: Yes: WNL Labs: CBC, BMP 12/01/17 10:25 12/01/17 10:25 INR, PTT INR 1.43 (0.82-1.09) H 11/29/17 16:56 Problem List - Problems (1) Unilateral vocal cord paralysis Assessment/Plan: Left vocal cord paralysis, and inc risk of aspiration, eat carefully per LIVESTOCK INSPECTOR advice. Do CT of neck with contrast or MRI to r/o lesion of the left recurrent laryngeal nerve. F/U as outpatient to check if the cranial mononeuropathy resolves spontaneously, since it may if there is no lesion on neck scan. Code(s): J38.01 - PARALYSIS OF VOCAL CORDS AND LARYNX, UNILATERAL Procedure - Procedure and Findings -: Fiberoptic laryngoscopy via left nares, reveals left vocal cord paralysis in cadaveric postion, not paramedian. She has a breathy voice. No pooling in piriforms. No masses or lesions.
--- NOTE | 2017-12-01 15:43 | PATH ---
Cytology Non-Gynecological Report Patient Name: HANG DUNHAM [facility]. Rec. #: [id number] /Age/Gender: 1950 (Age: 67) / F Account: [id number] Location: 4 W TELEMETRY U Taken: 11/30/2017 Received: 11/30/2017 Reported: 12/01/2017 Physicians: Ryann Coelho DO Specimen(s) Received A: ABDOMINAL FLUID B: ABDOMINAL FLUID Clinical History Ascites Final Diagnosis A & B. ABDOMINAL FLUID, PARACENTESIS: SATISFACTORY FOR EVALUATION. NO MALIGNANT CELLS IDENTIFIED. MESOTHELIAL CELLS PRESENT. Electronically Signed Amanda Mahan M.D. Gross Description A. Approximately 20 cc of yellow fluid received fixed in 50% alcohol. Two cytofunnels and one cellblock prepared. B. Approximately 4000 cc of yellow fluid received fresh. Two cytofunnels and one cellblock prepared.
--- NOTE | 2017-12-01 16:16 | PN ---
Progress Note, Physician Chief Complaint: Cardiology follow up Telem NSR Comfortable and more alert. History of Present Illness: 67 year old female, with medical history of dementia, hypertension, cirrhosis, hepatitis C, and anxiety, who presents to the emergency department with abdominal distension, increased dyspnea and cough for several days. In ER ws mildly hypoxic. She was confused and could not provide any history. She is post paracentesis. - Current Medication List Current Medications: Active Medications Amlodipine Besylate (Norvasc -) 10 mg PO DAILY [facility] Last Admin: 11/30/17 12:45 Dose: 10 mg Furosemide (Lasix Injection -) 40 mg IVPUSH DAILY [facility] Last Admin: 12/01/17 10:48 Dose: 40 mg Heparin Sodium (Porcine) (Heparin -) 5,000 unit SQ BID [facility] Last Admin: 12/01/17 10:49 Dose: 5,000 unit Lactulose (Cephulac (Oral Use)) 20 gm PO BID [facility] Last Admin: 12/01/17 10:48 Dose: 20 gm Lidocaine (Lidoderm Patch -) 1 patch TP DAILY [facility] Last Admin: 12/01/17 10:48 Dose: 1 patch Metoprolol Tartrate (Lopressor Injection -) 5 mg IVPUSH Q4H PRN PRN Reason: HYPERTENSION Miscellaneous (Lidoderm Patch Removal) 1 each MC DAILY@2200 [facility] Last Admin: 11/30/17 21:39 Dose: Not Given Rifaximin (Xifaxan -) 550 mg PO BID [facility] Last Admin: 12/01/17 10:48 Dose: 550 mg Spironolactone (Aldactone -) 50 mg PO BID [facility] Last Admin: 12/01/17 10:49 Dose: 50 mg - Objective Vital Signs: Vital Signs Temperature 98.1 F 12/01/17 08:14 Pulse Rate 64 12/01/17 08:14 Respiratory Rate 20 12/01/17 09:00 Blood Pressure 120/59 12/01/17 08:14 O2 Sat by Pulse Oximetry (%) 94 L 12/01/17 09:00 Constitutional: Yes: No Distress, Thin Eyes: Yes: Conjunctiva Clear HENT: Yes: Atraumatic Neck: Yes: Supple Cardiovascular: Yes: Regular Rate and Rhythm, S1, S2. 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 Her echocardiogram showed normal biventricular function with mild to moderate Aortic stenosis. CT chest suggesting pulmonary infiltrates. Volume overload due to cirrhosis. Continue with IV diuretics Continue to replace potassium Will see as needed.
[2017-12-01] MEDS: AMPICILLIN NA/SULBACTAM NA 1.5 GM in SODIUM CHLORIDE 100 ML IVPB SCH ×2 (18:16→20:54)
[2017-12-01] MEDS: LIDOCAINE PATCH REMOVAL MC SCH (21:42)
[2017-12-02] MEDS: AMPICILLIN NA/SULBACTAM NA 1.5 GM in SODIUM CHLORIDE 100 ML IVPB SCH ×2 (02:55→11:00)
[2017-12-02] MEDS: SPIRONOLACTONE 25 MG TABLET (FP) PO SCH ×2 (09:10→21:27)
[2017-12-02] MEDS: RIFAXIMIN 550 MG TABLET (UD) PO SCH ×2 (09:11→21:27)
[2017-12-02] MEDS: LIDOCAINE 5% TOPICAL PATCH TP SCH ×2 (09:11→09:19)
[2017-12-02] MEDS: FUROSEMIDE 40 MG/4 ML INJECTABLE VIAL IVPUSH SCH (09:11)
[2017-12-02] MEDS: LACTULOSE 20 GM/30 ML UDC (FOR ORAL USE ONLY) PO SCH ×2 (09:11→21:27)
[2017-12-02] MEDS: HEPARIN NA (PORCINE) 5,000 UNITS/ML 1ML VIAL SQ SCH ×2 (09:20→21:25)
--- NOTE | 2017-12-02 09:33 | PN ---
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
[2017-12-02] MEDS ORDERED: DEXTROSE 5%-WATER 100 ML IVPB ONE ×2 (09:48→18:11)
[2017-12-02] MEDS ORDERED: AMPICILLIN NA/SULBACTAM NA 1.5 GM VIAL ONE ×3 (09:48→20:55)
[2017-12-02] MEDS: AMPICILLIN NA/SULBACTAM NA 1.5 GM in DEXTROSE 5%-WATER 100 ML IVPB SCH ×3 (09:49→21:26)
--- NOTE | 2017-12-02 10:30 | CONS ---
INFECTIOUS DISEASE CONSULTATION DATE OF CONSULTATION: DATE OF DICTATION: 12/02/2017 REQUESTING PHYSICIAN: Alphonse Ramey MD This is a 67-year-old woman. She is followed as an outpatient by Dr. Arango who advised evaluation in the emergency room. She lives at home with her . She was brought to the emergency room for worsening dyspnea on exertion and abdominal distention. They informed their doctor of this, who recommended ER evaluation. She has a history of hepatitis C and cirrhosis. She apparently lives in an apartment with her at home. In the emergency room, she was evaluated. She had a paracentesis done apparently to Pathology; 4000 mL of fluid was received. Pathology was unremarkable as well. The fluid was not consistent with SBP. She denies any fevers, chills, abdominal pain. She does have a weak voice and describes coughing when she eats. She was evaluated by Speech Pathology, and question of vocal cord paralysis was raised. She was seen by ENT and was found to have left vocal cord paralysis. As well, she was seen by Cardiology and felt to have CHF. She was seen by Neurology who thought she had dementia. I am asked to see her because chest CT reveals right lung base consolidation and possible right upper lobe infiltrate consistent with aspiration. On echo, she is noted to have mild TR and [id number] aortic stenosis. PAST MEDICAL HISTORY: As per chart as patient is a very poor historian, is notable for dementia, liver cirrhosis, hepatitis C, and anxiety. She also has a history of chronic UTI and hypertension. SURGICAL HISTORY: Not available. SOCIAL HISTORY: Per the chart, there is no history of cigarette or substance use. ALLERGIES: She has no known drug allergies. MEDICATION LIST: In the chart is unconfirmed and I suspect it is from her last admission when she was here in 2016 with a UTI. Unconfirmed, include Ultram, Ambien, Risperdal, oxybutynin, Toprol, Lidoderm patch, Vicodin, and Norvasc. REVIEW OF SYSTEMS: She notes she has cough with eating. Otherwise, she has no complaints. PHYSICAL EXAMINATION: General: She is awake and alert. Vital Signs: Her T-max has been 99.7. Current temperature is 97.8. Pulse is 75. Blood pressure 125/62. Respiratory rate is 20. HEENT: She is normocephalic. Her eyes are anicteric. Neck: Supple. Lungs: Diminished breath sounds at the bases. Heart: Regular rate and rhythm. Abdomen: Soft. She has ascites. It is nontender. Extremities: Without edema. LABORATORY DATA: Labs are notable for a white count of 4.2, hemoglobin 13.1, platelets are 108. Her INR is 1.4. BUN is 9 and creatinine 0.4 with AST of 126 and albumin of 2. Urinalysis is negative. As stated before, she had 143 white cells in her peritoneal fluid which is not consistent with SBP, and cultures are negative. CAT scan findings are as previously stated. She was started on Unasyn yesterday. In summary, this is a 67-year-old woman with hepatitis C cirrhosis, dementia, left vocal cord paralysis of unclear etiology being followed by ENT, with CAT scan findings most consistent with aspiration pneumonia. She has been started on Unasyn which I suspect is appropriate for this at the time. Cultures have not been obtained, but given lack of fever and the fact that she has been on antibiotics for 24 hours, I do not think I would add anything to our management. Her diet has been adjusted by Speech Pathology. Further imaging has been suggested by ENT. Would give her a short course of Unasyn at this time. Further recommendations to follow. Camelia [id number]
--- NOTE | 2017-12-02 10:32 | CON.PULM ---
Consult Consult Specialty:: PULMONARY Referred by:: JAMIA Reason for Consultation:: SOB - History of Present Illness Chief Complaint: SOB History of Present Illness: The patient is a 67 year old female, with a significant past medical history of dementia, chronic UTI, hypertension, cirrhosis, hepatitis C, and anxiety, who presents to the emergency department with abdominal distension, increased dyspnea and cough for several days. Per significant other, he has noted patient has increased dyspnea on exertion, to the point where she can only go up 3-4 stairs at a time before she has to stop to catch her breath. Partner also notes patient has a dry nonproductive cough, but denies any fever, chills, headache, or dizziness. Partner notes increased abdominal distension, but states patient has not complained of abdominal pain, nausea, vomiting, diarrhea, or constipation. Patient saw her PCP Dr. Arango, who noted abdominal distension and recommended further evaluation in the ER. Patient was evaluated by GI in the past, who stated patients evaluation was normal. Patient denies any chest pain, diaphoresis, or palpitations. Patient denies any dysuria, hematuria, frequency, or urgency. She denies any recent travel or sick contacts. 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 no documented history of tb or hepatitis - Alcohol/Substance Use Hx Alcohol Use: No History of Substance Use: reports: None - Smoking History Smoking history: Never smoked Have you smoked in the past 12 months: No - Social History Usual Living Arrangement: With Significant Other ADL: Family Assistance History of Recent Travel: No Home Medications - Allergies Allergies/Adverse Reactions: Allergies Allergy/AdvReac Type Severity Reaction Status Date / Time No Known Allergies Allergy Verified 06/03/16 15:07 - Home Medications Home Medications: Ambulatory Orders Hydrocodone/Acetaminophen [Vicodin 5-300 mg Tablet] 1 each PO DAILY PRN Amlodipine Besylate [Norvasc -] 10 mg PO DAILY 11/01/14 Metoprolol Succinate [Toprol XL -] 25 mg PO DAILY 11/01/14 Risperidone [Risperdal] 2 mg PO DAILY 11/01/14 traMADol HCL [Ultram -] 50 mg PO BID 11/01/14 Oxybutynin Chloride [Oxybutynin Chloride ER] 15 mg PO DAILY #30 tab.er.24 Zolpidem Tartrate [Ambien] 5 mg PO HS #30 tablet 11/04/14 Cephalexin Monohydrate [Keflex -] 500 mg PO BID #14 capsule 06/07/16 Lidocaine 5% Patch [Lidoderm -] 1 patch TP DAILY #20 patch 06/07/16 Review of Systems Unable to obtain ROS, reason: UNABLE TO OBTAIN Physical Exam Vital Sings: Vital Signs Temperature 98 F 12/02/17 09:00 Pulse Rate 82 12/02/17 09:00 Respiratory Rate 18 12/02/17 09:00 Blood Pressure 126/70 12/02/17 09:00 O2 Sat by Pulse Oximetry (%) 91 L 12/02/17 09:00 Eyes: Yes: EOM Intact, Sclera Icterus HENT: Yes: Normocephalic Neck: Yes: Trachea Midline Cardiovascular: Yes: Regular Rate and Rhythm, Murmur, S1, S2 Respiratory: Yes: Diminished (BREATH SOUNDS ON RIGHT BASE), Wheezes (EXPIRATORY/ ) Gastrointestinal: Yes: Soft, Ascites Edema: LLE: 1+, RLE: 1+ Neurological: Yes: Dysarthria Labs: CBC, BMP 12/01/17 10:25 12/01/17 10:25 ABG Results ABG pH 7.47 (7.35-7.45) H 11/29/17 17:40 ABG pCO2 at Pt Temp 35.8 mmHg (35-45) 11/29/17 17:40 ABG pO2 at Pt Temp 66.2 mmHg (80-100) L 11/29/17 17:40 ABG HCO3 25.8 meq/L (22-26) 11/29/17 17:40 ABG O2 Sat (Measured) 92.7 % (90-98.9) 11/29/17 17:40 ABG O2 Content No Result Required. 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
--- NOTE | 2017-12-02 17:16 | PN ---
Progress Note, Physician Chief Complaint: AWAKE IN BED CONFUSED EVENTS AND NOTES REVIEWED ON SUPPORT - Current Medication List Current Medications: Active Medications Amlodipine Besylate (Norvasc -) 10 mg PO DAILY [facility] Last Admin: 11/30/17 12:45 Dose: 10 mg Furosemide (Lasix Injection -) 40 mg IVPUSH DAILY [facility] Last Admin: 12/02/17 09:11 Dose: 40 mg Heparin Sodium (Porcine) (Heparin -) 5,000 unit SQ BID [facility] Last Admin: 12/02/17 09:20 Dose: 5,000 unit Ampicillin Sodium/Sulbactam (Sodium 1.5 gm/ Dextrose) 100 mls @ 200 mls/hr IVPB Q6H-IV [facility] Last Admin: 12/02/17 09:49 Dose: 200 mls/hr Lactulose (Cephulac (Oral Use)) 20 gm PO BID [facility] Last Admin: 12/02/17 09:11 Dose: 20 gm Lidocaine (Lidoderm Patch -) 1 patch TP DAILY [facility] Last Admin: 12/02/17 09:19 Dose: Not Given Metoprolol Tartrate (Lopressor Injection -) 5 mg IVPUSH Q4H PRN PRN Reason: HYPERTENSION Miscellaneous (Lidoderm Patch Removal) 1 each MC DAILY@2200 [facility] Last Admin: 12/01/17 21:42 Dose: Not Given Rifaximin (Xifaxan -) 550 mg PO BID [facility] Last Admin: 12/02/17 09:11 Dose: 550 mg Spironolactone (Aldactone -) 50 mg PO BID [facility] Last Admin: 12/02/17 09:10 Dose: 50 mg - Objective Vital Signs: Vital Signs Temperature 99 F 12/02/17 15:00 Pulse Rate 84 12/02/17 15:00 Respiratory Rate 18 12/02/17 15:00 Blood Pressure 133/84 12/02/17 15:00 O2 Sat by Pulse Oximetry (%) 91 L 12/02/17 09:00 Constitutional: Yes: Mild Distress Eyes: Yes: WNL, Other Neck: Yes: WNL Cardiovascular: Yes: WNL Respiratory: Yes: On Nasal O2, Rhonchi Gastrointestinal: Yes: WNL Genitourinary: Yes: WNL Musculoskeletal: Yes: Muscle Weakness Extremities: Yes: WNL Edema: No Peripheral Pulses WNL: Yes Integumentary: Yes: WNL Wound/Incision: Yes: Clean/Dry Neurological: Yes: Confusion, Pre-Existing Deficit ...Motor Strength: LLE, RLE Psychiatric: Yes: Other Labs: CBC, BMP 12/01/17 10:25 12/01/17 10:25 INR, PTT INR 1.43 (0.82-1.09) H 11/29/17 16:56 Problem List - Problems (1) Aspiration pneumonia Code(s): J69.0 - PNEUMONITIS DUE TO INHALATION OF FOOD AND VOMIT (2) Ascites Code(s): R18.8 - OTHER ASCITES Qualifiers: Ascites type: other type Qualified Code(s): R18.8 - Other ascites (3) Aspiration pneumonia Code(s): J69.0 - PNEUMONITIS DUE TO INHALATION OF FOOD AND VOMIT (4) CHF (congestive heart failure) Code(s): I50.9 - HEART FAILURE, UNSPECIFIED (5) 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 Code(s): B18.2 - CHRONIC VIRAL HEPATITIS C; K74.60 - UNSPECIFIED CIRRHOSIS OF LIVER (6) Dyspnea Code(s): R06.00 - DYSPNEA, UNSPECIFIED (7) Pneumonia Code(s): J18.9 - PNEUMONIA, UNSPECIFIED ORGANISM (8) Pneumonia, community acquired Code(s): J18.9 - PNEUMONIA, UNSPECIFIED ORGANISM Assessment/Plan IV ABX PER ID SWALLOW EVAL AND WORKUP IN PROGRESS DVT PROPHYLAXIS 02 SUPPORT WILL NEED SNF PULMONARY WORKUP
[2017-12-02] MEDS: LIDOCAINE PATCH REMOVAL MC SCH (21:27)
[2017-12-03] MEDS ORDERED: AMPICILLIN NA/SULBACTAM NA 1.5 GM VIAL ONE ×4 (03:10→21:56)
[2017-12-03] MEDS ORDERED: DEXTROSE 5%-WATER 100 ML IVPB ONE ×4 (03:10→21:56)
[2017-12-03] MEDS: AMPICILLIN NA/SULBACTAM NA 1.5 GM in DEXTROSE 5%-WATER 100 ML IVPB SCH ×4 (03:30→22:00)
[2017-12-03 08:02] LABS: HEMATOCRIT 36.7 % (32.4-45.2); HEMOGLOBIN 12.6 GM/dL (10.7-15.3); MCHC 34.5 g/dl (32.0-36.0); MEAN CELL VOLUME 92.8 fl (80-96); MEAN PLT VOLUME 8.1 fl (7.5-11.1); PLATELET COUNT 100 K/MM3 (134-434); RBC 3.95 M/mm3 (3.60-5.2); RDW 14.9 % (11.6-15.6); WHITE BLOOD COUNT 4.7 K/mm3 (4.0-10.0)
[2017-12-03 08:30] LABS: CHLORIDE 102 mmol/L (98-107); POTASSIUM 3.2 mmol/L (3.5-5.1); SODIUM 141 mmol/L (136-145)
[2017-12-03 08:44] LABS: ANION GAP 7 (8-16); BLOOD UREA NITROGEN 10 mg/dL (7-18); CALCIUM 7.7 mg/dL (8.5-10.1); CO2 32 mmol/L (21-32); CREATININE 0.5 mg/dL (0.55-1.02); GLUCOSE,RANDOM 94 mg/dL (74-106); MAGNESIUM 1.6 mg/dL (1.8-2.4)
[2017-12-03] MEDS: LACTULOSE 20 GM/30 ML UDC (FOR ORAL USE ONLY) PO SCH ×2 (09:09→21:59)
[2017-12-03] MEDS: HEPARIN NA (PORCINE) 5,000 UNITS/ML 1ML VIAL SQ SCH ×3 (09:09→21:59)
[2017-12-03] MEDS: SPIRONOLACTONE 25 MG TABLET (FP) PO SCH ×2 (09:09→22:00)
[2017-12-03] MEDS: FUROSEMIDE 40 MG/4 ML INJECTABLE VIAL IVPUSH SCH (09:10)
[2017-12-03] MEDS: LIDOCAINE 5% TOPICAL PATCH TP SCH (09:10)
[2017-12-03] MEDS: RIFAXIMIN 550 MG TABLET (UD) PO SCH ×2 (09:10→22:01)
--- NOTE | 2017-12-03 12:07 | PN ---
Progress Note (short form) - Note Progress Note: PULMONARY OFFERS NO NEW COMPLAINTS VSS/AFEBRILE NO OVERALL CHANGE IN EXAM LABS/MEDS/NOTES/IMAGES/MICRO REVIEWED (1) Ascites Code(s): R18.8 - OTHER ASCITES Qualifiers: Ascites type: other type Qualified Code(s): R18.8 - Other ascites (2) Aspiration pneumonia Code(s): J69.0 - PNEUMONITIS DUE TO INHALATION OF FOOD AND VOMIT (3) CHF (congestive heart failure) Code(s): I50.9 - HEART FAILURE, UNSPECIFIED (4) 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 Code(s): B18.2 - CHRONIC VIRAL HEPATITIS C; K74.60 - UNSPECIFIED CIRRHOSIS OF LIVER (5) Dyspnea Code(s): R06.00 - DYSPNEA, UNSPECIFIED (6) Hepatic encephalopathy Code(s): K72.90 - HEPATIC FAILURE, UNSPECIFIED WITHOUT COMA Assessment/Plan O2 TO KEEP SAT GREATER THAN 90% ANTIBIOTICS PER ID BRONCHODILATORS NEEDED MONITOR ELECTROLYTES DIURETICS PER PRIMARY TEAM Valarie CROCKER MD Problem List - Problems (1) Ascites Code(s): R18.8 - OTHER ASCITES Qualifiers: Ascites type: other type Qualified Code(s): R18.8 - Other ascites (2) Aspiration pneumonia Code(s): J69.0 - PNEUMONITIS DUE TO INHALATION OF FOOD AND VOMIT (3) CHF (congestive heart failure) Code(s): I50.9 - HEART FAILURE, UNSPECIFIED (4) 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 Code(s): B18.2 - CHRONIC VIRAL HEPATITIS C; K74.60 - UNSPECIFIED CIRRHOSIS OF LIVER (5) Dyspnea Code(s): R06.00 - DYSPNEA, UNSPECIFIED (6) Hepatic encephalopathy Code(s): K72.90 - HEPATIC FAILURE, UNSPECIFIED WITHOUT COMA
[2017-12-03] MEDS ORDERED: POTASSIUM CHLORIDE ORAL LIQUID 20 MEQ/15 ML PO ONE (12:26)
[2017-12-03] MEDS ORDERED: MAGNESIUM 2GM/50ML STERILE WATER IVPB IVPB ONE (12:26)
--- NOTE | 2017-12-03 12:29 | PN ---
Progress Note, Physician Chief Complaint: ASLEEP COMFORTABLE NO ACUTE EVENTS OVERNIGHT - Current Medication List Current Medications: Active Medications Amlodipine Besylate (Norvasc -) 10 mg PO DAILY [facility] Last Admin: 11/30/17 12:45 Dose: 10 mg Furosemide (Lasix Injection -) 40 mg IVPUSH DAILY [facility] Last Admin: 12/03/17 09:10 Dose: 40 mg Heparin Sodium (Porcine) (Heparin -) 5,000 unit SQ BID [facility] Last Admin: 12/03/17 09:09 Dose: 5,000 unit Ampicillin Sodium/Sulbactam (Sodium 1.5 gm/ Dextrose) 100 mls @ 200 mls/hr IVPB Q6H-IV [facility] Last Admin: 12/03/17 09:09 Dose: 200 mls/hr Potassium Chloride (Potassium Chloride 10 Meq Premix Ivpb -) 10 meq in 100 mls @ 100 mls/hr IVPB Q60M [facility] Stop: 12/03/17 13:29 Lactulose (Cephulac (Oral Use)) 20 gm PO BID [facility] Last Admin: 12/03/17 09:09 Dose: 20 gm Lidocaine (Lidoderm Patch -) 1 patch TP DAILY [facility] Last Admin: 12/03/17 09:10 Dose: Not Given Magnesium Sulfate (Magnesium Sulfate) 2 gm IVPB ONCE ONE Stop: 12/03/17 12:27 Metoprolol Tartrate (Lopressor Injection -) 5 mg IVPUSH Q4H PRN PRN Reason: HYPERTENSION Miscellaneous (Lidoderm Patch Removal) 1 each MC DAILY@2200 [facility] Last Admin: 12/02/17 21:27 Dose: Not Given Potassium Chloride (Potassium Chloride Oral Liquid) 20 meq PO ONCE ONE Stop: 12/03/17 12:27 Rifaximin (Xifaxan -) 550 mg PO BID [facility] Last Admin: 12/03/17 09:10 Dose: 550 mg Spironolactone (Aldactone -) 50 mg PO BID [facility] Last Admin: 12/03/17 09:09 Dose: 50 mg - Objective Vital Signs: Vital Signs Temperature 98 F 12/03/17 10:00 Pulse Rate 85 12/03/17 10:00 Respiratory Rate 18 12/03/17 10:00 Blood Pressure 120/70 12/03/17 10:00 O2 Sat by Pulse Oximetry (%) 92 L 12/03/17 09:00 Constitutional: Yes: No Distress Eyes: Yes: WNL HENT: Yes: WNL Neck: Yes: WNL Cardiovascular: Yes: WNL Respiratory: Yes: WNL Gastrointestinal: Yes: Ascites, Distention Genitourinary: Yes: Incontinence Musculoskeletal: Yes: Muscle Weakness Edema: Yes Peripheral Pulses WNL: Yes Neurological: Yes: Confusion, Pre-Existing Deficit ...Motor Strength: LLE, RLE Psychiatric: Yes: Other Labs: CBC, BMP 12/03/17 07:00 12/03/17 07:00 INR, PTT INR 1.43 (0.82-1.09) H 11/29/17 16:56 Problem List - Problems (1) Aspiration pneumonia Code(s): J69.0 - PNEUMONITIS DUE TO INHALATION OF FOOD AND VOMIT (2) Ascites Code(s): R18.8 - OTHER ASCITES Qualifiers: Ascites type: other type Qualified Code(s): R18.8 - Other ascites (3) Aspiration pneumonia Code(s): J69.0 - PNEUMONITIS DUE TO INHALATION OF FOOD AND VOMIT (4) CHF (congestive heart failure) Code(s): I50.9 - HEART FAILURE, UNSPECIFIED (5) 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 Code(s): B18.2 - CHRONIC VIRAL HEPATITIS C; K74.60 - UNSPECIFIED CIRRHOSIS OF LIVER (6) Dyspnea Code(s): R06.00 - DYSPNEA, UNSPECIFIED (7) Pneumonia Code(s): J18.9 - PNEUMONIA, UNSPECIFIED ORGANISM (8) Pneumonia, community acquired Code(s): J18.9 - PNEUMONIA, UNSPECIFIED ORGANISM Assessment/Plan CORRECT K+/MG+ LEVELS DIURETICS CONTINUE FOR ASCITES IV ABX 02 SUPPORT BACTEREMIA/SEPSIS ID F/U
[2017-12-03] MEDS ORDERED: KCL 10 MEQ IVPB 10 MEQ/100 ML INFUS.BAG IVPB SCH (12:30)
[2017-12-03] MEDS: LIDOCAINE PATCH REMOVAL MC SCH (22:00)
[2017-12-04] MEDS: AMPICILLIN NA/SULBACTAM NA 1.5 GM in DEXTROSE 5%-WATER 100 ML IVPB SCH ×2 (03:19→10:24)
[2017-12-04] MEDS ORDERED: DEXTROSE 5%-WATER 100 ML IVPB ONE (08:45)
[2017-12-04] MEDS ORDERED: AMPICILLIN NA/SULBACTAM NA 1.5 GM VIAL ONE (08:45)
[2017-12-04] MEDS: LIDOCAINE 5% TOPICAL PATCH TP SCH (10:24)
[2017-12-04] MEDS: LACTULOSE 20 GM/30 ML UDC (FOR ORAL USE ONLY) PO SCH ×2 (10:24→21:15)
[2017-12-04] MEDS: SPIRONOLACTONE 25 MG TABLET (FP) PO SCH ×2 (10:25→21:15)
[2017-12-04] MEDS: FUROSEMIDE 40 MG/4 ML INJECTABLE VIAL IVPUSH SCH (10:25)
[2017-12-04] MEDS: HEPARIN NA (PORCINE) 5,000 UNITS/ML 1ML VIAL SQ SCH ×2 (10:25→21:14)
[2017-12-04] MEDS: RIFAXIMIN 550 MG TABLET (UD) PO SCH ×2 (10:25→21:15)
--- NOTE | 2017-12-04 10:39 | PN ---
Progress Note, Physician History of Present Illness: ulmonary alert,comfortable,-resp distress,-tachypnea,-dyspnea - Current Medication List Current Medications: Active Medications Amlodipine Besylate (Norvasc -) 10 mg PO DAILY [facility] Last Admin: 11/30/17 12:45 Dose: 10 mg Furosemide (Lasix Injection -) 40 mg IVPUSH DAILY [facility] Last Admin: 12/04/17 10:25 Dose: 40 mg Heparin Sodium (Porcine) (Heparin -) 5,000 unit SQ BID [facility] Last Admin: 12/04/17 10:25 Dose: 5,000 unit Ampicillin Sodium/Sulbactam (Sodium 1.5 gm/ Dextrose) 100 mls @ 200 mls/hr IVPB Q6H-IV [facility] Last Admin: 12/04/17 10:24 Dose: 200 mls/hr Lactulose (Cephulac (Oral Use)) 20 gm PO BID [facility] Last Admin: 12/04/17 10:24 Dose: 20 gm Lidocaine (Lidoderm Patch -) 1 patch TP DAILY [facility] Last Admin: 12/04/17 10:24 Dose: 1 patch Metoprolol Tartrate (Lopressor Injection -) 5 mg IVPUSH Q4H PRN PRN Reason: HYPERTENSION Miscellaneous (Lidoderm Patch Removal) 1 each MC DAILY@2200 [facility] Last Admin: 12/03/17 22:00 Dose: Not Given Rifaximin (Xifaxan -) 550 mg PO BID [facility] Last Admin: 12/04/17 10:25 Dose: 550 mg Spironolactone (Aldactone -) 50 mg PO BID [facility] Last Admin: 12/04/17 10:25 Dose: 50 mg - Objective Vital Signs: Vital Signs Temperature 98.5 F 12/04/17 02:00 Pulse Rate 75 12/04/17 02:00 Respiratory Rate 20 12/04/17 02:00 Blood Pressure 109/55 12/04/17 02:00 O2 Sat by Pulse Oximetry (%) 91 L 12/03/17 21:00 Constitutional: Yes: Well Nourished, Calm Eyes: Yes: WNL HENT: Yes: WNL Neck: Yes: WNL Cardiovascular: Yes: Regular Rate and Rhythm, S1, S2 Respiratory: Yes: Diminished, Rales (scattered bilateral crackles) Gastrointestinal: Yes: Soft, Ascites Extremities: Yes: WNL Edema: No Labs: CBC, BMP 12/03/17 07:00 12/03/17 07:00 INR, PTT INR 1.43 (0.82-1.09) H 11/29/17 16:56 Assessment/Plan Problem List - Problems (1) Ascites Code(s): R18.8 - OTHER ASCITES Qualifiers: Ascites type: other type Qualified Code(s): R18.8 - Other ascites (2) Aspiration pneumonia Code(s): J69.0 - PNEUMONITIS DUE TO INHALATION OF FOOD AND VOMIT (3) CHF (congestive heart failure) Code(s): I50.9 - HEART FAILURE, UNSPECIFIED (4) 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 Code(s): B18.2 - CHRONIC VIRAL HEPATITIS C; K74.60 - UNSPECIFIED CIRRHOSIS OF LIVER (5) Dyspnea Code(s): R06.00 - DYSPNEA, UNSPECIFIED (6) Hepatic encephalopathy Code(s): K72.90 - HEPATIC FAILURE, UNSPECIFIED WITHOUT COMA Assessment/Plan O2 TO KEEP SAT GREATER THAN 90% ANTIBIOTICS PER ID BRONCHODILATORS MONITOR ELECTROLYTES DIURETICS PER PRIMARY TEAM F/U CHEST X-RAYS DAILY WTS MONITOR YADIRA LOZA
--- NOTE | 2017-12-04 12:42 | PN ---
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 Selected Entries 12/03/17 12/03/17 12/03/17 02:00 05:50 10:00 Breakfast Lunch Supper Temperature 99.1 F 98.0 F 98 F 12/03/17 12/03/17 12/03/17 10:46 14:00 18:00 Breakfast 100% Lunch 100% Supper 100% Temperature 98.5 F 98.6 F 12/03/17 12/03/17 12/04/17 22:00 23:00 02:00 Breakfast Lunch Supper Temperature 98.2 F 98.1 F 98.5 F 12/04/17 06:00 Breakfast Lunch Supper 100% Temperature Laboratory Tests 12/03/17 07:00 WBC 4.7 Pt on pureed diet/honey thick liquid on tsp.not from a cup. OOB for meals, if possible. Consider STR for swallowing/voice tx to improve VC function and glottic protection. Significant risk of aspiration with VC paralysis and unprotected glottis. Consider palliative ezra/ Pt is full code.
--- NOTE | 2017-12-04 14:04 | PN ---
Progress Note (short form) - Note Progress Note: still with breathy voice no cough Vital Signs Period Temp Pulse Resp BP Sys/Bolaños Pulse Ox Last 24 Hr 98.1 F-98.6 F 75-82 18-20 109-126/55-66 91 cor-rrr lungs decreased bs at bases abd soft,nt ext no edema CBC, BMP 12/03/17 07:00 12/03/17 07:00 Microbiology 11/30/17 14:00 Peritoneal Fluid AFB Smear Concentration - Final 11/30/17 14:00 Peritoneal Fluid Mycobacterial Culture - Preliminary 11/30/17 14:00 Peritoneal Fluid Gram Stain - Final 11/30/17 14:00 Peritoneal Fluid Body Fluid Culture - Final NO GROWTH OF AEROBIC ORGANISMS AFTER 48 HOURS INCUBATION 11/30/17 14:00 Peritoneal Fluid Anaerobic Culture - Final NO ANAEROBES WERE ISOLATED 11/30/17 14:00 Peritoneal Fluid KERRY Preparation - Preliminary 11/30/17 14:00 Peritoneal Fluid Fungal Culture - Preliminary imp/reccd aspiration pneumonia-day #3- can switch to augmentin suspension to complete 7 days vocal cord paralysis HCV cirrhosis- s/p paracentesis augmentin suspension diet adjusted further imaging per ENT please call back if needed Problem List - Problems (1) Aspiration pneumonia Code(s): J69.0 - PNEUMONITIS DUE TO INHALATION OF FOOD AND VOMIT (2) Vocal cord paralysis Code(s): J38.00 - PARALYSIS OF VOCAL CORDS AND LARYNX, UNSPECIFIED (3) 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 Code(s): B18.2 - CHRONIC VIRAL HEPATITIS C; K74.60 - UNSPECIFIED CIRRHOSIS OF LIVER
--- NOTE | 2017-12-04 16:43 | PN ---
Progress Note, Physician Chief Complaint: AWAKE IN CHAIR DENIES CHEST PAIN OR SOB - Current Medication List Current Medications: Active Medications Amlodipine Besylate (Norvasc -) 10 mg PO DAILY [facility] Last Admin: 11/30/17 12:45 Dose: 10 mg Amoxicillin/Clavulanate Potassium (Augmentin 250 Mg/5 Ml Oral Suspension -) 500 mg PO TIDCM [facility] Furosemide (Lasix Injection -) 40 mg IVPUSH DAILY [facility] Last Admin: 12/04/17 10:25 Dose: 40 mg Heparin Sodium (Porcine) (Heparin -) 5,000 unit SQ BID [facility] Last Admin: 12/04/17 10:25 Dose: 5,000 unit Lactulose (Cephulac (Oral Use)) 20 gm PO BID [facility] Last Admin: 12/04/17 10:24 Dose: 20 gm Lidocaine (Lidoderm Patch -) 1 patch TP DAILY [facility] Last Admin: 12/04/17 10:24 Dose: 1 patch Metoprolol Tartrate (Lopressor Injection -) 5 mg IVPUSH Q4H PRN PRN Reason: HYPERTENSION Miscellaneous (Lidoderm Patch Removal) 1 each MC DAILY@2200 [facility] Last Admin: 12/03/17 22:00 Dose: Not Given Rifaximin (Xifaxan -) 550 mg PO BID [facility] Last Admin: 12/04/17 10:25 Dose: 550 mg Spironolactone (Aldactone -) 50 mg PO BID [facility] Last Admin: 12/04/17 10:25 Dose: 50 mg - Objective Vital Signs: Vital Signs Temperature 97.9 F 12/04/17 14:00 Pulse Rate 88 12/04/17 14:00 Respiratory Rate 20 12/04/17 14:00 Blood Pressure 124/72 12/04/17 14:00 O2 Sat by Pulse Oximetry (%) 91 L 12/04/17 09:00 Constitutional: Yes: Mild Distress Eyes: Yes: WNL HENT: Yes: Hoarseness Neck: Yes: WNL Cardiovascular: Yes: WNL Respiratory: Yes: Cough Gastrointestinal: Yes: Ascites Genitourinary: Yes: WNL Musculoskeletal: Yes: Muscle Weakness Extremities: Yes: WNL Edema: Yes Peripheral Pulses WNL: Yes Integumentary: Yes: WNL Wound/Incision: Yes: Clean/Dry Neurological: Yes: Pre-Existing Deficit ...Motor Strength: LLE, RLE Psychiatric: Yes: Other Labs: CBC, BMP 12/03/17 07:00 12/03/17 07:00 INR, PTT INR 1.43 (0.82-1.09) H 11/29/17 16:56 Problem List - Problems (1) Aspiration pneumonia Code(s): J69.0 - PNEUMONITIS DUE TO INHALATION OF FOOD AND VOMIT (2) Ascites Code(s): R18.8 - OTHER ASCITES Qualifiers: Ascites type: other type Qualified Code(s): R18.8 - Other ascites (3) Aspiration pneumonia Code(s): J69.0 - PNEUMONITIS DUE TO INHALATION OF FOOD AND VOMIT (4) CHF (congestive heart failure) Code(s): I50.9 - HEART FAILURE, UNSPECIFIED (5) 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 Code(s): B18.2 - CHRONIC VIRAL HEPATITIS C; K74.60 - UNSPECIFIED CIRRHOSIS OF LIVER (6) Dyspnea Code(s): R06.00 - DYSPNEA, UNSPECIFIED (7) Pneumonia Code(s): J18.9 - PNEUMONIA, UNSPECIFIED ORGANISM (8) Pneumonia, community acquired Code(s): J18.9 - PNEUMONIA, UNSPECIFIED ORGANISM Assessment/Plan ENT CONSULT APPRECIATED VOCAL CORD PARALYSIS SWALLOW EVAL REVIEWED NEEDS ADVANCED DIRECTIVE ON POSSIBLE PEG? WILL DISCUSS WITH TITUS CHAUHAN FROM [facility] ABX CHANGED TO PO DC PLANNING SNF PLACEMENT
[2017-12-04] MEDS: AMOX TR/POTASSIUM CLAVULANATE 250 MG/5 ML BOTTLE PO SCH (17:28)
[2017-12-04] MEDS: LIDOCAINE PATCH REMOVAL MC SCH (21:15)
[2017-12-05 06:44] LABS: ANION GAP 6 (8-16); BLOOD UREA NITROGEN 10 mg/dL (7-18); CALCIUM 7.8 mg/dL (8.5-10.1); CHLORIDE 99 mmol/L (98-107); CO2 32 mmol/L (21-32); GLUCOSE,RANDOM 80 mg/dL (74-106); MAGNESIUM 1.8 mg/dL (1.8-2.4); POTASSIUM 3.6 mmol/L (3.5-5.1); SODIUM 137 mmol/L (136-145)
[2017-12-05 06:45] LABS: CREATININE 0.4 mg/dL (0.55-1.02)
[2017-12-05 09:07] VITALS: BP 103/59; PULSE 84; TEMP 98.5
[2017-12-05] MEDS: SPIRONOLACTONE 25 MG TABLET (FP) PO SCH (09:52)
[2017-12-05] MEDS: AMOX TR/POTASSIUM CLAVULANATE 250 MG/5 ML BOTTLE PO SCH ×3 (09:52→17:32)
[2017-12-05] MEDS: HEPARIN NA (PORCINE) 5,000 UNITS/ML 1ML VIAL SQ SCH (09:54)
[2017-12-05] MEDS: LACTULOSE 20 GM/30 ML UDC (FOR ORAL USE ONLY) PO SCH (09:54)
[2017-12-05] MEDS: LIDOCAINE 5% TOPICAL PATCH TP SCH (09:55)
[2017-12-05] MEDS: FUROSEMIDE 40 MG/4 ML INJECTABLE VIAL IVPUSH SCH (09:55)
[2017-12-05] MEDS: RIFAXIMIN 550 MG TABLET (UD) PO SCH (09:55)
[2017-12-05] MEDS: amLODIPine BESYLATE 10 MG TABLET (FP) PO SCH (09:56)
--- NOTE | 2017-12-05 12:52 | PN ---
Progress Note (short form) - Note Progress Note: PULMONARY States breathing better. Eating without coughing. No fevers or chills. Vital Signs Period Temp Pulse Resp BP Sys/Bolaños Pulse Ox Last 24 Hr 97.9 F-99.4 F 78-88 20-20 96-124/48-72 92-92 Gen: NAD in chair Heart: RRR Lung: decreased breath sounds at the bases Abd: soft, nontender Ext: no edema CBC, BMP 12/03/17 07:00 12/05/17 05:30 Active Medications Amlodipine Besylate (Norvasc -) 10 mg PO DAILY [facility] Last Admin: 12/05/17 09:56 Dose: 10 mg Amoxicillin/Clavulanate Potassium (Augmentin 250 Mg/5 Ml Oral Suspension -) 500 mg PO TIDCM [facility] Last Admin: 12/05/17 12:36 Dose: 500 mg Furosemide (Lasix Injection -) 40 mg IVPUSH DAILY [facility] Last Admin: 12/05/17 09:55 Dose: 40 mg Heparin Sodium (Porcine) (Heparin -) 5,000 unit SQ BID [facility] Last Admin: 12/05/17 09:54 Dose: 5,000 unit Lactulose (Cephulac (Oral Use)) 20 gm PO BID [facility] Last Admin: 12/05/17 09:54 Dose: 20 gm Lidocaine (Lidoderm Patch -) 1 patch TP DAILY [facility] Last Admin: 12/05/17 09:55 Dose: 1 patch Metoprolol Tartrate (Lopressor Injection -) 5 mg IVPUSH Q4H PRN PRN Reason: HYPERTENSION Miscellaneous (Lidoderm Patch Removal) 1 each DAILY@2200 [facility] Last Admin: 12/04/17 21:15 Dose: Not Given Rifaximin (Xifaxan -) 550 mg PO BID [facility] Last Admin: 12/05/17 09:55 Dose: 550 mg Spironolactone (Aldactone -) 50 mg PO BID [facility] Last Admin: 12/05/17 09:52 Dose: 50 mg A/P Aspiration Pneumonia Vocal Cord Dysfunction Liver Cirrhosis LV Diastolic Dysfunction - complete antibiotics - continue lasix, aldactone - aspiration precautions - DVT prophylaxis
--- NOTE | 2017-12-05 15:12 | PN ---
GI Progress Note Subjective: For Dr. Edwards: Asked to evaluate for PEG secondary to vocal cord paralysis On Pureed / honey thick liquid diet Ms. Contreras offers no focal complaints - Objective Vital Signs: Vital Signs Temperature 98.5 F 12/05/17 09:00 Pulse Rate 84 12/05/17 09:00 Respiratory Rate 20 12/05/17 09:00 Blood Pressure 103/59 12/05/17 09:00 O2 Sat by Pulse Oximetry (%) 92 L 12/05/17 09:00 Constitutional: Calm Eyes: No: Sclera Icterus Cardiovascular: Yes: Regular Rate and Rhythm Respiratory: Yes: Diminished (at bases bilaterally) Gastrointestinal Inspection: Yes: Ascites, Distention ...Auscultate: Yes: Normoactive Bowel Sounds ...Palpate: No: Splenomegaly, Tenderness ...Percussion: Yes: Dullness. No: Tympanitic Edema: No (No LE edema) Labs: CBC, BMP 12/03/17 07:00 12/05/17 05:30 INR, PTT INR 1.43 (0.82-1.09) H 11/29/17 16:56 Laboratory Tests 11/30/17 14:00 Peritoneal WBC 143 Peritoneal RBC 284 Peritoneal Tot Protein 1 Peritoneal Albumin 0 SAA.2 Microbiology 11/30/17 14:00 Peritoneal Fluid Gram Stain - Final 11/30/17 14:00 Peritoneal Fluid Anaerobic Culture - Final NO GROWTH OF AEROBIC ORGANISMS AFTER 48 HOURS INCUBATION NO ANAEROBES WERE ISOLATED Problem List - Problems (1) Dysphagia Assessment/Plan: PEG is contraindicated in setting of ascites given potential for infection / perotinitis, perforation of adjacent viscera and poor tract maturation. If further options for feeding is pursued, obtaining another opinion at a liver center ie. [facility] could be considered. Consider palliative care Code(s): R13.10 - DYSPHAGIA, UNSPECIFIED (2) Ascites Assessment/Plan: Suspected to be secondary to decompensated Hep C Cirrhosis Aldactone 50mg PO BID Lasix 40mg PO daily Q6 month AFP tumor marker and liver US to screen for HCC 2g low Na diet Code(s): R18.8 - OTHER ASCITES Qualifiers: Ascites type: other type Qualified Code(s): R18.8 - Other ascites
--- NOTE | 2017-12-05 15:38 | DS ---
Physical Examination Vital Signs: Vital Signs Temperature 98.5 F 12/05/17 09:00 Pulse Rate 84 12/05/17 09:00 Respiratory Rate 20 12/05/17 09:00 Blood Pressure 103/59 12/05/17 09:00 O2 Sat by Pulse Oximetry (%) 92 L 12/05/17 09:00 Findings/Remarks: NOT A CANDIDATE FOR PEG DUE TO ASCITES NEEDS PALLIATIVE CARE SHOULD BE DNR/DNI Constitutional: Yes: No Distress Eyes: Yes: WNL HENT: Yes: WNL Neck: Yes: WNL Cardiovascular: Yes: WNL Respiratory: Yes: WNL Gastrointestinal: Yes: Ascites Renal/: Yes: WNL Musculoskeletal: Yes: Muscle Weakness Edema: No Wound/Incision: Yes: Clean/Dry Neurological: Yes: Pre-Existing Deficit ...Motor Strength: LLE, RLE Psychiatric: Yes: Other Labs: CBC, BMP 12/03/17 07:00 12/05/17 05:30 Discharge Summary Reason For Visit: ASCITES; DYSPNEA; HYPOXIA Current Active Problems Ascites (Acute) Aspiration pneumonia (Acute) Aspiration pneumonia (Acute) CHF (congestive heart failure) (Acute) 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 (Acute) Dysphagia (Acute) Dyspnea (Acute) Hepatic encephalopathy (Acute) Hypoxia (Acute) Murmur (Acute) Unilateral vocal cord paralysis (Acute) Vocal cord paralysis (Acute) Procedures: Principal: CT SCAN/ECHO Hospital Course: ADMITTED FOR CONGESTION, POOR APPETITE FAILED SWALLOW EVAL, ASCITES AND Condition: Guarded - Instructions Diet, Activity, Other Instructions: FOLLOW DYSPHAGIA DIET WILL NEED PALLIATIVE CARE FOLLOW UP Referrals: Graeme Edwards MD [Staff Physician] - Jose Manuel Arango MD, MD [Primary Care Provider] - [facility] - Home Medications Comprehensive Discharge Medication List: Ambulatory Orders Amlodipine Besylate [Norvasc -] 10 mg PO DAILY 11/01/14 Metoprolol Succinate [Toprol XL -] 25 mg PO DAILY 11/01/14 Risperidone [Risperdal] 2 mg PO DAILY 11/01/14 traMADol HCL [Ultram -] 50 mg PO BID 11/01/14 Zolpidem Tartrate [Ambien] 5 mg PO HS #30 tablet 11/04/14 Lidocaine 5% Patch [Lidoderm -] 1 patch TP DAILY #20 patch 06/07/16 Amox-Tr/K Cl [Augmentin Suspension -] 500 mg PO TIDCM 5 Days ml 12/05/17 Furosemide [Lasix] 40 mg PO DAILY #30 tablet 12/05/17 Heparin - 5,000 unit SQ BID vial 12/05/17 Lactulose (Oral Use) [Cephulac -] 20 gm PO BID udc 12/05/17 Rifaximin [Xifaxan -] 550 mg PO BID tablet 12/05/17 Spironolactone [Aldactone -] 50 mg PO BID tablet 12/05/17
--- NOTE | 2017-12-08 11:20 | PN ---
Progress Note (short form) - Note Progress Note: ADDENDUM DIAGNOSIS: PATIENT HAS LIVER CIRRHOSIS ASCITES HEP C WITH SYSTOLIC HEART FAILURE. WILL START LOW DOSE TALIA INHIBITOR ALONG WITH DIURETICS, BBLOCKERS FOR HEART FAILURE TREATMENT. 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
== END 2017-12-05 19:25 | DRG 441 ==
LOC: JER 14:08 → JERBED 16:32 → J4W 21:11
PROVIDERS: ADMIT Family Medicine; ATTEND Family Medicine
PROC: 0W9G3ZZ Drainage of Peritoneal Cavity, Percutaneous Approach (ICD-10-PCS; principal; 2017-11-30)
DX: K72.90 Hepatic failure, unspecified without coma (principal); J69.0 Pneumonitis due to inhalation of food and vomit; G93.41 Metabolic encephalopathy; I50.21 Acute systolic (congestive) heart failure; G92 Toxic encephalopathy; R18.8 Other ascites; R01.1 Cardiac murmur, unspecified; B18.2 Chronic viral hepatitis C; K74.60 Unspecified cirrhosis of liver; R06.00 Dyspnea, unspecified; R13.10 Dysphagia, unspecified; J38.01 Paralysis of vocal cords and larynx, unilateral; E87.70 Fluid overload, unspecified
CPT/HCPCS: 36415; 36600; 71045-TC-FY; 71260-TC; 74177-TC; 74230-TC-FY; 76942-TC; 80048; 80053; 80061; 81003; 82042; 82150; 82375; 82550; 82553; 82803; 82945; 83036; 83050; 83615; 83690; 83721; 83735; 83880; 84157; 84478; 84484; 85025; 85027; 85610; 85730; 86850; 86900; 86901; 87070; 87075; 87102; 87116; 87205; 87206; 87210; 87899; 88108; 88305-TC; 89051; 92611-GN; 93005; 93010; 93306-TC; 97116-GP; 97161-GP; 99285-25; J1644

== ENCOUNTER 2017-12-11 16:05 | Emergency (ER) | payer OTHER ==
--- NOTE | 2017-12-11 16:51 | PDOC ---
History of Present Illness - General Chief Complaint: Pain, Acute Stated Complaint: ABD PAIN Time Seen by Provider: 12/11/17 16:45 History Source: Patient Exam Limitations: No Limitations - History of Present Illness Initial Comments: 67 YOF with h/o HCV cirrhosis, ascites (recently had paracentesis with Dr. Edwards ), CHF, and aspiration PNA, who was referred here to the ED by Pati for increasing abdominal girth like her prior ascites. The patient herself is minimally verbal and the bulk of her medical history is provided in her SNF records and by her . The notes that she has not been having any abdominal pain, fever, chills, nausea, vomiting, new diarrhea, constipation, lightheadedness/dizziness, headache, chest pain, SOB, jaundice, or other new symptoms. This feels similar to her prior ascites before paracentesis. The patient has not established a plan for regular paracentesis with her outpatient providers. On conversation with Pati, there is no additional reason that she came into the ED than for the paracentesis d/t increased abdominal girth. Past History - Past Medical History Allergies/Adverse Reactions: Allergies Allergy/AdvReac Type Severity Reaction Status Date / Time No Known Allergies Allergy Verified 06/03/16 15:07 Home Medications: Ambulatory Orders Amlodipine Besylate [Norvasc -] 10 mg PO DAILY 11/01/14 Metoprolol Succinate [Toprol XL -] 25 mg PO DAILY 11/01/14 Risperidone [Risperdal] 2 mg PO DAILY 11/01/14 traMADol HCL [Ultram -] 50 mg PO BID 11/01/14 Zolpidem Tartrate [Ambien] 5 mg PO HS #30 tablet 11/04/14 Lidocaine 5% Patch [Lidoderm -] 1 patch TP DAILY #20 patch 06/07/16 Amox-Tr/K Cl [Augmentin Suspension -] 500 mg PO TIDCM 5 Days ml 12/05/17 Furosemide [Lasix] 40 mg PO DAILY #30 tablet 12/05/17 Heparin - 5,000 unit SQ BID vial 12/05/17 Lactulose (Oral Use) [Cephulac -] 20 gm PO BID udc 12/05/17 Rifaximin [Xifaxan -] 550 mg PO BID tablet 12/05/17 Spironolactone [Aldactone -] 50 mg PO BID tablet 12/05/17 Anemia: No Asthma: No Cancer: No Cardiac Disorders: No CVA: No COPD: No CHF: No DVT: No Dementia: Yes Diabetes: No GI Disorders: No Disorders: Yes (CHRONIC UTI) HTN: Yes Hypercholesterolemia: No Liver Disease: Yes (CIRRHOSIS, HEP C) Psychiatric Problems: Yes (ANXIETY) Seizures: No Thyroid Disease: No - Surgical History Abdominal Surgery: No Appendectomy: No Cardiac Surgery: No Cholecystectomy: No Lung Surgery: No Neurologic Surgery: No Orthopedic Surgery: No - Suicide/Smoking/Psychosocial Hx Smoking History: Never smoked Have you smoked in the past 12 months: No Hx Alcohol Use: No Drug/Substance Use Hx: No Substance Use Type: None Hx Substance Use Treatment: No Review of Systems - Review of Systems Able to Perform ROS?: Yes Constitutional: No: Chills, Fever, Unexplained wgt Loss HEENTM: No: Nose Congestion, Throat Pain Respiratory: No: Cough, Shortness of Breath Cardiac (ROS): No: Chest Pain, Palpitations ABD/GI: Yes: Abdominal Distended, Other (denies abdominal pain). No: Constipated, Diarrhea, Nausea, Vomiting : No: Burning, Dysuria Musculoskeletal: No: Back Pain, Neck Pain Integumentary: No: Bruising, Rash Neurological: No: Headache, Numbness, Tingling, Weakness, Dizziness Endocrine: No: Unexplained Weight Gain, Unexplained Weight Loss *Physical Exam - Physical Exam General Appearance: Yes: Nourished, Appropriately Dressed, Other (nonverbal, appears comfortable, accompanied by who answers questions, patient makes eye contact and smiles, moving all extremities). No: Apparent Distress HEENT: positive: EOMI, RITESH, Normal Voice, Hearing Grossly Normal, Other ( slight dry mucous membranes). negative: Scleral Icterus (R), Scleral Icterus (L ), Nasal Congestion Neck: positive: Trachea midline, Supple. negative: Tender, Rigid Respiratory/Chest: positive: Lungs Clear, Normal Breath Sounds. negative: Respiratory Distress, Crackles, Rhonchi, Stridor, Wheezing Cardiovascular: positive: Regular Rhythm, Regular Rate, Edema (tace BLE pitting) , Murmur (3/6 systolic ejection) Gastrointestinal/Abdominal: positive: Normal Bowel Sounds, Soft, Protuberent, Distended. negative: Tender, Organomegaly, Pulsatile Mass, Guarding Musculoskeletal: positive: Normal Inspection. negative: Decreased Range of Motion, Vertebral Tenderness Extremity: positive: Normal Capillary Refill, Normal Inspection, Normal Range of Motion. negative: Tender, Cyanosis Integumentary: positive: Normal Color, Dry, Warm. 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 negative: Facial Droop Heart Score/ECG Review #1 NSR, rate 78, normal axis and intervals, no ischemic changes Medical Decision Making - Medical Decision Making 12/11/17 18:03 Pt presents with abdominal distention similar to their prior ascites; comes in specifically for paracentesis. Initial Vital Signs Temp Pulse Resp BP Pulse Ox 97.4 F L 80 20 121/67 96 12/11/17 17:00 12/11/17 17:00 12/11/17 17:00 12/11/17 17:00 12/11/17 17:00 Exam: nonverbal but interactive, abdomen distended, not tight or rigid, nontender, trace BLE pitting edema, 3/6 systolic murmur, otherwise exam normal. DDX IBNLT: ascites; much less likely SBO, constipation, gas, GI perforation, colitis or diverticulitis wwo rupture or abscess, toxic megacolon, appendicitis wwo rupture, pancreatitis wwo abscess/pseudocyst (MC cause gallstones and EtOH; also hypercalcemia, neoplasm, medications, abdominal surgery/instrumentation, trauma, SBP (brad. w/ h/o cirrhosis/EtOH), AAA/AD wwo rupture, ischemic colitis wwo perforation (embolism, bowel obstruction, inadequate systemic perfusion, medications, surgery-induced vascular compromise), etc. W/U ordered: None TX ordered: None Spoke with Dr. Edwards who will see the patient in his clinic. The patient/caregivers are to call Dr. Edwards's office tomorrow morning to schedule a followup appointment. Vital Signs Temperature 97.4 F L 12/11/17 17:00 Pulse Rate 80 12/11/17 17:00 Respiratory Rate 20 12/11/17 17:00 Blood Pressure 121/67 12/11/17 17:00 O2 Sat by Pulse Oximetry (%) 96 12/11/17 17:00 The Pt is appropriate for discharge with close outpatient follow up with Dr. Edwards. The Pt is comfortable with this plan and will follow up with their PCP in 1-3 days. Specific return precautions are discussed and they will come back to the ER if necessary. 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 We spoke with the economics lecturer doctor who you have seen before (Dr. Graeme Edwards) and he will see you in his clinic as an outpatient. In general, we do not do the paracentesis procedure here in the emergency department unless there is concern for a very dangerous infection, difficulty breathing, or other serious concerns. After our assessment, we do not believe you are having a medical emergency at this time, and we believe you are safe to go back to [facility]. Please follow up with your economics lecturer (Dr. Edwards; we are providing referral information in this packet. Call their clinic as soon as possible tomorrow morning, tell them you were seen in the ER, and tell them you need an appointment. If you have any new or worsening symptoms, especially severe abdominal pain, difficulty breathing, fever, change in your baseline mental status/confusion, or other symptoms, please come back to the ER at any time (24 hours a day). If you are having severe or life threatening symptoms, or symptoms that make it unsafe to drive or have someone drive you, please call 911. - Post Discharge Activity
[2017-12-11 17:02] VITALS: BP 121/67; PULSE 80; TEMP 97.4; BMI 21.9
--- NOTE | 2017-12-11 17:27 | PDOC ---
Attending Attestation - Physicial Exam PE: 12/11/17 17:34 GENERAL: Well-appearing, well-nourished. No apparent distress. HEENT: (+) Vocal cord paralysis, Normocephalic, atraumatic. PERRL, EOM intact. CARDIOVASCULAR: (+) Murmur. Regular rate and rhythm. PULMONARY: Clear to auscultation bilaterally. ABDOMEN: (+) Asides, Soft, non-tender. EXTREMITIES: (+) Right ankle ecchymosis, mild pedal edema. Normal ROM in all four extremities. No gross deformities. SKIN: Warm, dry. No rash NEUROLOGICAL: No focal neurological deficits. <Bennie Suarez - Last Filed: 12/11/17 17:34> - Resident Resident Name: Cici Villalobos - ED Attending Attestation I have performed the following: I have examined & evaluated the patient, The case was reviewed & discussed with the resident, I agree w/resident's findings & plan, Exceptions are as noted - HPI HPI: 12/11/17 17:20 67 YO FEMALE who has been sent from [facility] for concern of increased abdominal girth. -she has h/o hep c, liver cirrhosis,paralyzed vocal cord and most recent paracentesis was done 11/30/17 and the culture was NEGATIVE -pt has no shortness of breath,no fever,no abd pain -pt is in [facility] receiving physical therapy - Medical Decision Making 12/11/17 17:27 -no emergent need for PARACENTESIS. SENT because during her physical therapy session her abd girth was noted -Dr Edwards was called and outpt paracentesis was discussed and pt will be discharged 12/11/17 18:35 IMP chronic hep c, cirrhosis plan f/u with Dr Edwards (GI) <Laura Richard - Last Filed: 12/11/17 18:42>
--- NOTE | 2017-12-13 13:04 | EKG ---
Test Reason : Blood Pressure : / mmHG Vent. Rate : 078 BPM Atrial Rate : 078 BPM P-R Int : 158 ms QRS Dur : 086 ms QT Int : 392 ms P-R-T Axes : 095 019 032 degrees QTc Int : 446 ms POOR DATA QUALITY, INTERPRETATION MAY BE ADVERSELY AFFECTED NORMAL SINUS RHYTHM CANNOT RULE OUT ANTERIOR INFARCT , AGE UNDETERMINED ABNORMAL ECG WHEN COMPARED WITH ECG OF 29-NOV-2017 15:55, NO SIGNIFICANT CHANGE WAS FOUND Confirmed by KETAN SMITH MD ([id number]) on 12/13/2017 1:04:27 PM Referred By: Confirmed By:KETAN SMITH MD
== END 2017-12-11 21:55 ==
LOC: JER 16:05
DX: R18.8 Other ascites (principal); K74.69 Other cirrhosis of liver; B18.2 Chronic viral hepatitis C; I50.9 Heart failure, unspecified; I10 Essential (primary) hypertension; F41.9 Anxiety disorder, unspecified; Z87.440 Personal history of urinary (tract) infections
CPT/HCPCS: 93005; 93010; 99282-25

== ENCOUNTER 2019-01-08 13:16 | Inpatient (IN) | payer OTHER ==
[2019-01-08] MEDS ORDERED: SODIUM CHLORIDE 0.9% 1000 ML INFUS.BAG IV ONE (15:06)
--- NOTE | 2019-01-08 15:24 | PDOC ---
Attending Attestation - Resident Resident Name: YuliaNirmal - ED Attending Attestation I have performed the following: I have examined & evaluated the patient, The case was reviewed & discussed with the resident, I agree w/resident's findings & plan - HPI HPI: 01/08/19 15:19 68y/o F h/o hep C cirrhosis on lactulose presents sent in by Dr. Arango for worsening mental status over the past week. no fall, no infectious sxs but per stopped taking her "liver liquid medicine", ? lactulose. reportedly treated with abx by Dr. Arango yesterday, will clarify. - Physicial Exam PE: 01/08/19 15:22 afebrile, BP as noted, O2 notably 89% on room air, 97% on 2L alert seated in stretcher, follows commands, answers questions appropriately and A+Ox2 atraumatic, neck supple s1s2 rrr with 3/6 STERLING lungs clear abd soft/nt/nd bs nl no edema neuro nonfocal - Medical Decision Making 01/08/19 15:23 68-year-old female with history of seizures cirrhosis resents with 1 week of progressive altered mental status and declining functionality, no history of reported fall or infection, though she was reportedly treated presumptively with antibiotics yesterday. Afebrile here without evidence of SIRS or sepsis, neurologically nonfocal. Presentation seems most consistent with possible hepatic encephalopathy, question infectious etiology, rule out source of hypoxia such as pneumonia. Labs including ammonia Chest x-ray, EKG Admission Heart Score/ECG Review #1 ECG reviewed & interpreted by me at: 15:21 General ECG Interpretation: Sinus Rhythm, Normal Rate (68), Normal Intervals ( qtc 452), No acute ischemic changes
--- NOTE | 2019-01-08 15:37 | PDOC ---
History of Present Illness - General Chief Complaint: Pain Stated Complaint: SENT BY PCP Time Seen by Provider: 01/08/19 14:48 History Source: Patient, Spouse, Primary Care Provider Exam Limitations: No Limitations - History of Present Illness Initial Comments: 01/08/19 15:20 68F with a PMH of dementia, chronic UTI, hypertension, cirrhosis, hepatitis C, systolic HF, and anxiety who was sent by her PCP to the ER for evaluation of AMS. The patient cannot provide any history d/t confusion. The history is provided by the who is at bedside. The states that the patient has been more altered over the last couple days and has been unable to ambulate around the house. He states that she has been in her normal state of health for the past year but acutely changed over the last couple of days. She admits to CP (retrosternal, nonradiating, going on for "a few days), SOB, and abdominal pain. Denies fever or chills. Admits to nausea without any vomiting. Past History - Past Medical History Allergies/Adverse Reactions: Allergies Allergy/AdvReac Type Severity Reaction Status Date / Time No Known Allergies Allergy Verified 01/08/19 13:25 Home Medications: Ambulatory Orders Amlodipine Besylate [Norvasc -] 10 mg PO DAILY 11/01/14 Metoprolol Succinate [Toprol XL -] 25 mg PO DAILY 11/01/14 Risperidone [Risperdal] 2 mg PO DAILY 11/01/14 traMADol HCL [Ultram -] 50 mg PO BID 11/01/14 Zolpidem Tartrate [Ambien] 5 mg PO HS #30 tablet 11/04/14 Lidocaine 5% Patch [Lidoderm -] 1 patch TP DAILY #20 patch 06/07/16 Amox-Tr/K Cl [Augmentin Suspension -] 500 mg PO TIDCM 5 Days ml 12/05/17 Furosemide [Lasix] 40 mg PO DAILY #30 tablet 12/05/17 Heparin - 5,000 unit SQ BID vial 12/05/17 Lactulose (Oral Use) [Cephulac -] 20 gm PO BID udc 12/05/17 Rifaximin [Xifaxan -] 550 mg PO BID tablet 12/05/17 Spironolactone [Aldactone -] 50 mg PO BID tablet 12/05/17 Anemia: No Asthma: No Cancer: No Cardiac Disorders: No CVA: No COPD: No CHF: No DVT: No Dementia: Yes Diabetes: No GI Disorders: No Disorders: Yes (CHRONIC UTI) HTN: Yes Hypercholesterolemia: No Liver Disease: Yes (CIRRHOSIS, HEP C) Psychiatric Problems: Yes (ANXIETY) Seizures: No Thyroid Disease: No - Surgical History Abdominal Surgery: No Appendectomy: No Cardiac Surgery: No Cholecystectomy: No Lung Surgery: No Neurologic Surgery: No Orthopedic Surgery: No - Suicide/Smoking/Psychosocial Hx Smoking History: Never smoked Have you smoked in the past 12 months: No Hx Alcohol Use: No Drug/Substance Use Hx: No Substance Use Type: None Hx Substance Use Treatment: No Review of Systems - Review of Systems Able to Perform ROS?: Yes Comments:: 01/08/19 16:50 GENERAL/CONSTITUTIONAL: + for weakness. No fever or chills. HEAD, EYES, EARS, NOSE AND THROAT: No change in vision. No ear pain or discharge. No sore throat. CARDIOVASCULAR: + for CP. No palpitations or lightheadedness. RESPIRATORY: + for SOB. No cough, wheezing, or hemoptysis. GASTROINTESTINAL: + for abdominal pain and nausea. No vomiting, diarrhea, or constipation. GENITOURINARY: + for dysuria. No frequency, hematuria, or change in urination. MUSCULOSKELETAL: + for inability to ambulate. No joint or muscle swelling or pain. No neck or back pain. SKIN: No rash or lesions. NEUROLOGIC: No headache, numbness, tingling, focal weakness, loss of consciousness, or change in strength/sensation. Is the patient limited [place]ian proficient: No *Physical Exam - Vital Signs Last Vital Signs Temp Pulse Resp BP Pulse Ox 98.1 F 74 22 H 100/50 L 95 01/08/19 13:25 01/08/19 13:25 01/08/19 13:25 01/08/19 13:25 01/08/19 14:37 - Physical Exam Comments: 01/08/19 16:57 GENERAL: Well developed, well nourished. Awake and alert. No acute distress. HEENT: Normocephalic, atraumatic. Hearing grossly normal. Moist mucous membranes. PERRLA, EOMI. No conjunctival pallor. Sclera are non-icteric. NECK: Supple. Full ROM. No JVD. CARDIOVASCULAR: Regular rate and rhythm. No murmurs, rubs, or gallops. PULMONARY: No evidence of respiratory distress. Lungs clear to auscultation bilaterally. No wheezing, rales or rhonchi. ABDOMINAL: Soft. Non-tender. Non-distended. No rebound or guarding. GENITOURINARY: No CVA tenderness bilaterally. MUSCULOSKELETAL: Normal range of motion at all joints. EXTREMITIES: No cyanosis. No clubbing. No edema. No calf tenderness or swelling. SKIN: Warm and dry. Normal capillary refill. No rashes. No jaundice. NEUROLOGICAL: Alert, awake, appropriate. Cranial nerves 2-12 grossly intact. Normal speech. PSYCHIATRIC: Cooperative. Good eye contact. Appropriate mood and affect. ED Treatment Course - LABORATORY CBC & Chemistry Diagram: 01/08/19 15:55 01/08/19 17:15 - RADIOLOGY Radiology Studies Ordered: Category Date Time Status HEAD CT WITHOUT CONTRAST [CT] Stat CT Scan 01/08/19 15:06 Ordered CHEST X-RAY PORTABLE* [RAD] Stat Radiology 01/08/19 15:05 Taken Medical Decision Making - Medical Decision Making 01/08/19 16:45 68F with MMP who presents for her PCP's office for admission 2/2 AMS, weakness, dehydration, and leukocytosis (per PCP, Dr. Arango). Pt noted to be altered during exam. Will obtain labs and imaging and admit to hospital under Dr. Rowley's service per PCP. 01/08/19 17:32 CBC significant for platelets of 85. UA shows UTI. Will give ceftriaxone. Pending CMP. 01/08/19 18:32 CMP shows mild electrolyte abnormalities. Pending call back for admission. 01/08/19 18:49 Pt endorsed to [facility] for admission under Dr. Rowley. *DC/Admit/Observation/Transfer Diagnosis at time of Disposition: Hepatic encephalopathy, Dehydration Urinary tract infection Qualifiers: Urinary tract infection type: site unspecified Hematuria presence: without hematuria Qualified Code(s): N39.0 - Urinary tract infection, site not specified - Discharge Dispostion Condition at time of disposition: Guarded Decision to Admit order: Yes - Referrals Referrals: Jose Manuel Arango MD, MD [Primary Care Provider] - - Patient Instructions - Post Discharge Activity
[2019-01-08 16:29] LABS: EPI CELLS 16.5 /HPF (0-5/HPF); HYALINE CASTS 19 /lpf (0-8); PH,URINE 5.5 (5.0-8.0); URINE APPEARANCE CLOUDY; URINE BACTERIA 8.1 /hpf (NEGATIVE); URINE BILIRUBIN NEGATIVE (NEGATIVE); URINE COLOR YELLOW; URINE GLUCOSE (UA) NEGATIVE (NEGATIVE); URINE KETONE NEGATIVE (NEGATIVE); URINE LEUK ESTERASE 2+ (NEGATIVE); URINE NITRITE NEGATIVE (NEGATIVE); URINE PROTEIN NEGATIVE (NEGATIVE); URINE RBC 100 /hpf (0-4); URINE UROBILINOGEN 0.2 mg/dL (0.2-1.0); URINE WBC 24 /hpf (0-5)
[2019-01-08 16:39] LABS: INR 1.46 (0.83-1.09); PROTHROMBIN TIME (PATIENT) 17.3 SEC (9.7-13.0)
[2019-01-08 16:43] LABS: BASO % 0.4 % (0-2.0); EOS % 0.2 % (0-4.5); HEMOGLOBIN 13.7 GM/dL (10.7-15.3); LYMPH % 8.8 % (8-40); MCH 36.9 pg (25.7-33.7); MCHC 35.1 g/dl (32.0-36.0); MEAN PLT VOLUME 9.5 fl (7.5-11.1); MONO % 15.5 % (3.8-10.2); NEUT % 75.1 % (42.8-82.8); PLATELET COUNT 85 K/MM3 (134-434); RBC 3.71 M/mm3 (3.60-5.2); RDW 15.3 % (11.6-15.6); WHITE BLOOD COUNT 7.9 K/mm3 (4.0-10.0)
[2019-01-08 16:58] LABS: MAGNESIUM 2.8 mg/dL (1.8-2.4)
[2019-01-08] MEDS ORDERED: CEFTRIAXONE 1,000 MG in DEXTROSE 5%-WATER - 50 ML IVPB ONE (17:32)
[2019-01-08 17:55] LABS: MAGNESIUM 2.6 mg/dL (1.8-2.4); PHOSPHOROUS 2.4 mg/dL (2.5-4.9)
[2019-01-08 18:00] LABS: ALBUMIN 2.2 g/dl (3.4-5.0); ALK PHOS 78 U/L (45-117); ANION GAP 10 MMOL/L (8-16); BILIRUBIN,TOTAL 1.6 mg/dL (0.2-1); BLOOD UREA NITROGEN 70.8 mg/dL (7-18); CALCIUM 8.3 mg/dL (8.5-10.1); CHLORIDE 105 mmol/L (98-107); CO2 19 mmol/L (21-32); CREATININE 1.3 mg/dL (0.55-1.3); GLUCOSE,RANDOM 88 mg/dL (74-106); POTASSIUM 3.9 mmol/L (3.5-5.1); SGOT/AST 34 U/L (15-37); SGPT/ALT 24 U/L (13-61); SODIUM 134 mmol/L (136-145); TOT PROT 5.9 g/dl (6.4-8.2)
[2019-01-08 18:41] LABS: ANISOCYTOSIS 2+; MACROCYTOSIS 2+; PLATELET ESTIMATE DECREASED
[2019-01-08] MEDS ORDERED: CEFTRIAXONE 1 GM/50 ML BAG ONE (18:58)
[2019-01-08] MEDS ORDERED: traMADol HCL 50 MG TABLET PO PRN (20:14)
[2019-01-08] MEDS ORDERED: SODIUM CHLORIDE 0.45% 1,000 ML IV SCH (20:15)
[2019-01-08] MEDS ORDERED: SENNOSIDES 8.6MG TABLET (FP) PO PRN (20:15)
[2019-01-08] MEDS ORDERED: DOCUSATE SODIUM 100 MG CAPSULE (FP) PO PRN (20:15)
--- NOTE | 2019-01-08 20:28 | HP ---
Admitting History and Physical - Primary Care Physician PCP: Jose Manuel Arango MD - Admission Chief Complaint: Alterered mental status History of Present Illness: 68 year old female, with a significant past medical history of dementia, chronic UTI, hypertension, hepatitis C and cirrhosis, and anxiety, who presents to the emergency department for evaluation of unsteady gait and altered mental status. As per , pt was in her usual state of health until 8days ago when she was noted by to have difficulty ambulating with her walker and decreased mental acuity. Her condition progressed to include decreased appetite, and excessive somnolence. endorses, pt self discontinuing lactulose for the two months, but restarted meds 3-4 days ago. Pt denies chest pain, SOB, fever, chills, headache, or dizziness. Patient saw her PCP Dr. Arango, who noted her altered mentation, malaise and recommended further evaluation in the ER. In ED Vitals T 98.1, HR 74bpm, BP 100/50, RR 22, O2 sat 95% CBC significant for platelets of 85. UA +3 bld, +2 leuk, 8.1 bacteria given ceftriaxone 1G Head Ct without acute findings. Pt will be admitted for continued management of altered mentation. 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 Cardiovascular: Yes: HTN, Murmur Gastrointestinal: Yes: Other (cirrhosis) Hepatobiliary: Yes: Cirrhosis, Hepatitis C Reproductive: Yes: Postmenopausal Infectious Disease: Yes: Other (hep c) Psych: Yes: Anxiety, Other ENT: Yes: Other (hearing loss--uses hearing aides) - Advance Directives Advance Directives: Yes: Health Care Proxy (Zev [phone]) - Smoking History Smoking history: Never smoked Have you smoked in the past 12 months: No - Alcohol/Substance Use Hx Alcohol Use: No History of Substance Use: reports: None - Social History ADL: Family Assistance History of Recent Travel: No Home Medications - Allergies Allergies/Adverse Reactions: Allergies Allergy/AdvReac Type Severity Reaction Status Date / Time No Known Allergies Allergy Verified 01/08/19 13:25 - Home Medications Home Medications: Ambulatory Orders Metoprolol Succinate [Toprol XL -] 25 mg PO DAILY 11/01/14 traMADol HCL [Ultram -] 50 mg PO BID 11/01/14 Zolpidem Tartrate [Ambien] 5 mg PO HS #30 tablet 11/04/14 Lactulose (Oral Use) [Cephulac -] 20 gm PO BID udc 12/05/17 Ergocalciferol [Vitamin D2] 50,000 unit PO Q7D@1000 01/08/19 Furosemide [Lasix] 80 mg PO DAILY 01/08/19 Spironolactone [Aldactone -] 75 mg PO BID 01/08/19 Family Disease History - Family Disease History Family Disease History: Other: Mother ( emphysema), Brother ( ( 59) unknown) Review of Systems - Review of Systems Constitutional: reports: Weakness Eyes: reports: No Symptoms HENT: reports: Hearing Loss Neck: reports: No Symptoms Cardiovascular: reports: No Symptoms Respiratory: reports: No Symptoms Gastrointestinal: reports: No Symptoms Genitourinary: reports: No Symptoms Breasts: reports: No Symptoms Reported Musculoskeletal: reports: Muscle Weakness Integumentary: reports: No Symptoms Neurological: reports: Confusion, Unsteady Gait, Weakness Endocrine: reports: No Symptoms Hematology/Lymphatic: reports: No Symptoms Psychiatric: reports: Altered Sleep Pattern Physical Examination Vital Signs: Vital Signs Temperature 98.1 F 01/08/19 13:25 Pulse Rate 71 01/08/19 18:00 Respiratory Rate 14 01/08/19 17:00 Blood Pressure 112/58 L 01/08/19 18:00 O2 Sat by Pulse Oximetry (%) 97 01/08/19 18:00 Constitutional: Yes: No Distress, Calm, Thin Eyes: Yes: Conjunctiva Clear, PERRL HENT: Yes: Atraumatic, Normocephalic Neck: Yes: Supple, Trachea Midline Cardiovascular: Yes: Regular Rate and Rhythm, Murmur (HSM) Respiratory: Yes: Regular, CTA Bilaterally Gastrointestinal: Yes: Soft, Abdomen, Obese, Hypoactive Bowel Sounds ...Rectal Exam: Yes: Deferred Renal/: Yes: Incontinence (diapers) Musculoskeletal: Yes: Muscle Weakness Extremities: Yes: WNL Edema: No Peripheral Pulses WNL: Yes Peripheral Pulses: Left Radial: 2+, Right Radial: 2+, Left Doralis Pedis: 2+, Right Dorsalis Pedis: 2+ Integumentary: Yes: WNL Neurological: Yes: Alert, Oriented ...Motor Strength: WNL Psychiatric: Yes: Alert, Oriented Labs: CBC, BMP 01/08/19 15:55 01/08/19 17:15 Imaging - Results Chest X-ray: Report Reviewed (CXR 01/08/2019: Impression: Improvement since prior study. No acute chest pathology. read by Sanchez Mark MD) Cat Scan: Report Reviewed (CT head 01/08/[address] evidence of acute intracranial pathology. Mild periventricular chronic microvascular ischemic changes are noted. The intracranial structures demonstrate no definite interval change in comparison to a prior CT exam of 04/18/2014. there is partial imaging of a probable perforation involving the nasal septum. Correlate clinically. Reported By: Arnold Lin MD) MRI: Report Reviewed (Jul 02 2018 MRI abd w/ ERCP IMPRESSION: Markedly limited exam and essentially of poor diagnostic value due to significant motion. Within limitations of the exam, Cirrhotic liver seen with no gross focal abnormally enhancing process to suggest HCC. Recanalized and markedly dilated umbilical vein communicating with numerous varices anterior to the left hepatic lobe which in turn communicates with multiple subcutaneous varices. Dilated distal SMV, splenic vein and proximal portal vein with multiple eccentric nonocclusive filling defects/thrombi. Atrophic pancreatic body and tail with relative preservation of the head however the overall evaluation of the pancreas is significantly limited on this exam. Underlying pancreatic head lesion cannot be excluded. Follow-up with CT scan of the pancreas with contrast is suggested. 3.6 x 3.5 cm left renal simple cyst. 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 1/2 NS 50ml/hr x 24hrs U/A does not appear c/w UTI, await UCX. Code(s): E86.0 - DEHYDRATION (7) Altered mental state Assessment/Plan: hold ambien overnight neuro check Q2hrs Code(s): R41.82 - ALTERED MENTAL STATUS, UNSPECIFIED Assessment/Plan DISPO: full code Visit type - Emergency Visit Emergency Visit: Yes ED Registration Date: 01/08/19 Care time: The patient presented to the Emergency Department on the above date and was hospitalized for further evaluation of their emergent condition. - New Patient This patient is new to me today: Yes Date on this admission: 01/08/19 - Critical Care Critical Care patient: No
[2019-01-08] MEDS: HEPARIN NA (PORCINE) 5,000 UNITS/ML 1ML VIAL SQ SCH (21:55)
[2019-01-08] MEDS: LACTULOSE 20 GM/30 ML UDC (FOR ORAL USE ONLY) PO SCH (21:55)
[2019-01-09] MEDS: HEPARIN NA (PORCINE) 5,000 UNITS/ML 1ML VIAL SQ SCH ×3 (01:03→17:45)
[2019-01-09] MEDS ORDERED: LIDOCAINE 5% TOPICAL PATCH TP ONE (04:37)
--- NOTE | 2019-01-09 08:18 | EKG ---
Test Reason : Blood Pressure : / mmHG Vent. Rate : 068 BPM Atrial Rate : 068 BPM P-R Int : 196 ms QRS Dur : 094 ms QT Int : 426 ms P-R-T Axes : 076 028 043 degrees QTc Int : 452 ms POOR DATA QUALITY, INTERPRETATION MAY BE ADVERSELY AFFECTED NORMAL SINUS RHYTHM NORMAL ECG WHEN COMPARED WITH ECG OF 11-DEC-2017 17:21, NO SIGNIFICANT CHANGE WAS FOUND Confirmed by SARAH ARITA, KETAN ([id number]) on 01/09/2019 8:17:44 AM Referred By: Confirmed By:KETAN SMITH MD
[2019-01-09 08:54] LABS: BILIRUBIN,TOTAL 1.7 mg/dL (0.2-1); BLOOD UREA NITROGEN 54.3 mg/dL (7-18); CREATININE 1.1 mg/dL (0.55-1.3); MAGNESIUM 2.3 mg/dL (1.8-2.4); N-TERMINAL BNP 861.6 pg/ml (5-125); PHOSPHOROUS 2.3 mg/dL (2.5-4.9); POTASSIUM 3.7 mmol/L (3.5-5.1); TOT PROT 5.5 g/dl (6.4-8.2)
[2019-01-09] MEDS: metoPROLOL SUCCINATE 25 MG TAB.SR.24H (FP) PO SCH (09:14)
[2019-01-09] MEDS: LACTULOSE 20 GM/30 ML UDC (FOR ORAL USE ONLY) PO SCH ×2 (09:14→23:09)
[2019-01-09 09:46] LABS: BASO % 0.4 % (0-2.0); EOS % 0.5 % (0-4.5); HEMATOCRIT 34.3 % (32.4-45.2); HEMOGLOBIN 11.9 GM/dL (10.7-15.3); LYMPH % 9.6 % (8-40); MCH 36.3 pg (25.7-33.7); MCHC 34.7 g/dl (32.0-36.0); MEAN CELL VOLUME 104.6 fl (80-96); MEAN PLT VOLUME 8.8 fl (7.5-11.1); MONO % 16.6 % (3.8-10.2); NEUT % 72.9 % (42.8-82.8); PLATELET COUNT 85 K/MM3 (134-434); RBC 3.28 M/mm3 (3.60-5.2)
[2019-01-09] MEDS ORDERED: morphine CARPU-JECT 2 MG/1 ML DISP.SYRIN IM PRN (10:19)
[2019-01-09] MEDS ORDERED: SODIUM CHLORIDE 0.45% 1,000 ML IV SCH (10:20)
--- NOTE | 2019-01-09 10:22 | PN ---
Progress Note, Physician Chief Complaint: EVENTS AND NOTES REVIEWED ABDOMINAL PAIN WITH NAUSEA - Current Medication List Current Medications: Active Medications Docusate Sodium (Colace -) 100 mg PO Q8H PRN PRN Reason: CONSTIPATION Ergocalciferol (Drisdol -) 50,000 unit PO Q7D@1000 [facility] Heparin Sodium (Porcine) (Heparin -) 5,000 unit SQ Q8H-IV [facility] Last Admin: 01/09/19 09:14 Dose: 5,000 unit Sodium Chloride (1/2 Normal Saline) 1,000 mls @ 75 mls/hr IV ASDIR [facility] Stop: 01/09/19 20:18 Lactulose (Cephulac (Oral Use)) 20 gm PO BID [facility] Last Admin: 01/09/19 09:14 Dose: 20 gm Metoprolol Succinate (Toprol Xl -) 25 mg PO DAILY [facility] Last Admin: 01/09/19 09:14 Dose: 25 mg Miscellaneous (Lidoderm Patch Removal) 1 each MC DAILY@2200 [facility] Morphine Sulfate (Morphine Injection -) 2 mg IM Q6H PRN PRN Reason: PAIN LEVEL 7 - 10 Senna (Senna -) 2 tab PO HS PRN PRN Reason: CONSTIPATION Tramadol HCl (Ultram -) 50 mg PO BID PRN PRN Reason: PAIN LEVEL 7 - 10 Last Admin: 01/09/19 01:03 Dose: 50 mg - Objective Vital Signs: Vital Signs Temperature 98.7 F 01/09/19 09:12 Pulse Rate 73 01/09/19 09:12 Respiratory Rate 18 01/09/19 09:12 Blood Pressure 123/57 L 01/09/19 09:12 O2 Sat by Pulse Oximetry (%) 98 01/09/19 06:56 Constitutional: Yes: Moderate Distress Cardiovascular: Yes: Regular Rate and Rhythm Respiratory: Yes: WNL Gastrointestinal: Yes: Soft, Tenderness Genitourinary: Yes: WNL Musculoskeletal: Yes: Muscle Weakness Edema: No Peripheral Pulses WNL: Yes Integumentary: Yes: WNL Wound/Incision: Yes: Clean/Dry Neurological: Yes: Confusion Psychiatric: Yes: Other Labs: CBC, BMP 01/09/19 06:54 01/09/19 06:54 INR, PTT INR 1.46 (0.83-1.09) H 01/08/19 15:55 Problem List - Problems (1) Pancreatitis, acute Code(s): K85.90 - ACUTE PANCREATITIS WITHOUT NECROSIS OR INFECTION, UNSP (2) Altered mental state Code(s): R41.82 - ALTERED MENTAL STATUS, UNSPECIFIED (3) Dehydration Code(s): E86.0 - DEHYDRATION (4) Hepatic encephalopathy Code(s): K72.90 - HEPATIC FAILURE, UNSPECIFIED WITHOUT COMA (5) Urinary tract infection Code(s): N39.0 - URINARY TRACT INFECTION, SITE NOT SPECIFIED Qualifiers: Urinary tract infection type: site unspecified Hematuria presence: without hematuria Qualified Code(s): N39.0 - Urinary tract infection, site not specified (6) Abdominal pain Code(s): R10.9 - UNSPECIFIED ABDOMINAL PAIN Assessment/Plan NPO IVF SONO ABDOMEN STAT PAIN CONTROL GI EVAL SURGERY F/U DVT PROPHYLAXIS
[2019-01-09] MEDS ORDERED: ACETAMINOPHEN 1000 MG/100 ML VIAL (NON FORMULARY) IVPB PRN (10:23)
[2019-01-09] MEDS: PANTOPRAZOLE SODIUM 40 MG VIAL IVPUSH SCH (11:45)
--- NOTE | 2019-01-09 12:12 | ECHO ---
Name: HANG DUNHAM Exam:Adult Echocardiogram Study Date: 01/09/2019 07:51 AM Age: 68 yrs Reason For Study: h/o aortic stenosis Height: 64 in Weight: 140 lb BSA: 1.7 m2 MMode/2D Measurements & Calculations IVSd: 0.82 cm Ao root diam: 3.0 cm LVIDd: 4.2 cm LA dimension: 3.0 cm LVIDs: 2.8 cm LVPWd: 1.2 cm LVPWs: 1.8 cm EDV(Teich): 79.4 ml ESV(Teich): 30.7 ml LVOT diam: 2.1 cm Doppler Measurements & Calculations MV E max martin: 93.8 cm/sec Ao V2 max: 271.9 cm/sec MV A max martin: 82.9 cm/sec Ao max P.6 mmHg MV E/A: 1.1 Ao V2 mean: 181.2 cm/sec MV dec time: 0.31 sec Ao mean P.8 mmHg Ao V2 VTI: 64.7 cm CRISTAL(I,D): 1.6 cm2 CRISTAL(V,D): 1.5 cm2 LV V1 max P.4 mmHg SV(LVOT): 103.5 ml LV V1 mean P.7 mmHg LV V1 max: 116.0 cm/sec LV V1 mean: 91.9 cm/sec LV V1 VTI: 30.4 cm PA V2 max: 107.9 cm/sec Med Peak E' Martin: 7.5 cm/sec PA max P.7 mmHg Med E/e': 12.6 Lat Peak E' Martin: 8.9 cm/sec Lat E/e': 10.6 Procedure A two-dimensional transthoracic echocardiogram with color flow and Doppler was performed. Left Ventricle The left ventricular size, thickness and function are normal. The left ventricular ejection fraction is normal. Left Ventricular Filling pattern is normal for age. The left ventricular wall motion is desi l. Right Ventricle The right ventricle is normal in size and function. Atria Normal left and right atrial size and function. Mitral Valve There is mild mitral valve thickening. There is no mitral valve stenosis. There is trace to mild mitr al regurgitation. Tricuspid Valve There is mild tricuspid valve thickening. There is no tricuspid stenosis. There was insufficient TR d etected to calculate RV systolic pressure. Aortic Valve The aortic valve is trileaflet. There is moderate aortic valve thickening. There is moderate aortic sclerosis.;. Mild to moderate valvular aortic stenosis. No aortic regurgitation is present. Pulmonic Valve The pulmonic valve is not well visualized. Great Vessels The aortic root is normal size. Pericardium/Pleura There is no pericardial effusion. Interpretation Summary The left ventricular size, thickness and function are normal The left ventricular ejection fraction is normal. The left ventricular wall motion is normal. The aortic valve is trileaflet. There is moderate aortic valve thickening. There is moderate aortic sclerosis.; Mild to moderate valvular aortic stenosis. No aortic regurgitation is present. There is trace to mild mitral regurgitation. There was insufficient TR detected to calculate RV systolic pressure. Left Ventricular Filling pattern is normal for age. MD Luis Snowden 01/09/2019 12:11 PM
[2019-01-09 12:41] LABS: ANISOCYTOSIS 0; MACROCYTOSIS 1+; OVALOCYTE 1+; PLATELET ESTIMATE DECREASED
[2019-01-09] MEDS: ONDANSETRON 4 MG/2 ML VIAL IVPUSH PRN (13:16)
--- NOTE | 2019-01-09 14:24 | CON.GI ---
Consult Consult Specialty:: GI Referred by:: Amrik Schrader Reason for Consultation:: acute metabolic encephalopathy - History of Present Illness Chief Complaint: Altered mental status History of Present Illness: 68 year old female, with a significant past medical history of dementia, chronic UTI, hypertension, hepatitis C and cirrhosis, and anxiety, who presents to the emergency department for evaluation of unsteady gait and altered mental status. As per , pt was in her usual state of health until 8days ago when she was noted by to have difficulty ambulating with her walker and decreased mental acuity. Her condition progressed to include decreased appetite, and excessive somnolence. endorses, pt self discontinuing lactulose for the two months, but restarted meds 3-4 days ago. Pt denies chest pain, SOB, fever, chills, headache, or dizziness. Patient saw her PCP Dr. Aranog, who noted her altered mentation, malaise and recommended further evaluation in the ER. 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 no documented history of tb or hepatitis - Alcohol/Substance Use Hx Alcohol Use: No History of Substance Use: reports: None - Smoking History Smoking history: Never smoked Have you smoked in the past 12 months: No - Social History Usual Living Arrangement: With Significant Other ADL: Family Assistance History of Recent Travel: No <Brendan Robertson - Last Filed: 01/09/19 15:55> Home Medications <Brendan Robertson - Last Filed: 01/09/19 15:55> <Emilie Montgomery - Last Filed: 01/09/19 18:00> - Allergies Allergies/Adverse Reactions: Allergies Allergy/AdvReac Type Severity Reaction Status Date / Time No Known Allergies Allergy Verified 01/08/19 13:25 - Home Medications Home Medications: Ambulatory Orders Metoprolol Succinate [Toprol XL -] 25 mg PO DAILY 11/01/14 traMADol HCL [Ultram -] 50 mg PO BID 11/01/14 Zolpidem Tartrate [Ambien] 5 mg PO HS #30 tablet 11/04/14 Lactulose (Oral Use) [Cephulac -] 20 gm PO BID udc 12/05/17 Ergocalciferol [Vitamin D2] 50,000 unit PO Q7D@1000 01/08/19 Furosemide [Lasix] 80 mg PO DAILY 01/08/19 Spironolactone [Aldactone -] 75 mg PO BID 01/08/19 Family Disease History - Family Disease History Family Disease History: Other: Mother ( emphysema), Brother ( ( 59) unknown) <Brendan Robertson - Last Filed: 01/09/19 15:55> Review of Systems Unable to obtain ROS, reason: dementia , help w - Review of Systems Constitutional: reports: Lethargy, Loss of Appetite, Weakness Eyes: denies: Double Vision HENT: denies: Difficult Swallowing Neck: denies: Stiffness Cardiovascular: denies: Chest Pain Respiratory: reports: SOB on Exertion. denies: Hemoptysis Gastrointestinal: reports: Abdominal Pain (diffuse abdominal pain), Constipation (3 days , had big BM today). denies: Melena Neurological: reports: Change in LOC (last week), Confusion, Unsteady Gait, Weakness <Brendan Robertson - Last Filed: 01/09/19 15:55> Physical Exam-GI Vital Signs: Vital Signs Temperature 98.7 F 01/09/19 09:12 Pulse Rate 73 01/09/19 09:12 Respiratory Rate 18 01/09/19 09:12 Blood Pressure 123/57 L 01/09/19 09:12 O2 Sat by Pulse Oximetry (%) 98 01/09/19 09:15 Constitutional: Yes: Calm, Cachectic, Mild Distress Eyes: Yes: Conjunctiva Clear HENT: Yes: Atraumatic, Normocephalic. No: Hoarseness Neck: Yes: Supple Cardiovascular: Yes: Regular Rate and Rhythm Respiratory: Yes: CTA Bilaterally Gastrointestinal Inspection: Yes: Distention. No: Ascites ...Auscultate: Yes: Normoactive Bowel Sounds ...Palpate: Yes: Soft, Tenderness (diffuse), Tenderness, Epigastium. No: Firm/ Rigid, Guarding ...Rectal Exam: Yes: Deferred Genitourinary: No: CVA Tenderness - Left, CVA Tenderness - Right Musculoskeletal: Yes: Muscle Weakness Edema: No Peripheral Pulses WNL: Yes Neurological: Yes: Alert (AOx2 place and person, no time) Labs: CBC, [facility] 01/09/19 06:54 01/09/19 06:54 INR, PTT INR 1.46 (0.83-1.09) H 01/08/19 15:55 <Brendan Robertson - Last Filed: 01/09/19 15:55> Vital Signs: Vital Signs Temperature 97.9 F 01/09/19 14:53 Pulse Rate 73 01/09/19 14:53 Respiratory Rate 20 01/09/19 14:53 Blood Pressure 122/56 L 01/09/19 14:53 O2 Sat by Pulse Oximetry (%) 98 01/09/19 09:15 Labs: CBC, [facility] 01/09/19 06:54 01/09/19 06:54 INR, PTT INR 1.46 (0.83-1.09) H 01/08/19 15:55 <Emilie Montgomery - Last Filed: 01/09/19 18:00> Problem List - Problems (1) Altered mental state Code(s): R41.82 - ALTERED MENTAL STATUS, UNSPECIFIED (2) Dehydration Code(s): E86.0 - DEHYDRATION (3) Hepatic encephalopathy Code(s): K72.90 - HEPATIC FAILURE, UNSPECIFIED WITHOUT COMA (4) Urinary tract infection Code(s): N39.0 - URINARY TRACT INFECTION, SITE NOT SPECIFIED Qualifiers: Urinary tract infection type: site unspecified Hematuria presence: without hematuria Qualified Code(s): N39.0 - Urinary tract infection, site not specified (5) Abdominal pain Code(s): R10.9 - UNSPECIFIED ABDOMINAL PAIN (6) 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 <Brendan Robertson - Last Filed: 01/09/19 15:55> Assessment/Plan # acute on chronic metabolic encephalopathy likley due to UTI vs cirrhosis * cont lactulose * ammonia level #Generalized weakness # Failure to thrive # dehydration cont IV fluids , encourage oral intake # N/V r.o gastritis # diffuse abdominal pain likely due to constipation , KUB now # constipation had Huge BM today cont lactulose and colace # Elevated Bilirubin : follow up direct and US abdomen # hypophosphatemia : replenish as needed # Hepc and cirrhosis AST , ALT wnl , can follow up as out pt , repeat MRCP to R.O malignancy <Brendan Robertson - Last Filed: 01/09/19 15:55> Pt seen/examined at bedside, agree with above assessment/plan per Dr. Robertson. Briefly 68yo female h/o HCV/cirrhosis, recurrent UTIs presenting with increased weakness, altered mentation and poor po intake. Also ?vague reports of abdominal pain though pt denies currently and possibly component of constipation. Per pts no recent GI/liver followup and possible remote EGD/colonoscopy (reports not currently available). Slightly delayed responses on my evaluation though oriented with benign abd exam. Lipase not diagnostic for pancreatitis, and bili slightly elevated. Recommend await US abdomen results (scheduled this afternoon), monitor LFTs and follow up hepatitis serologies. Would consider CT abdomen/pelvis r/o pancreatitis if clinical suspicion though denies pain currently. Continue infectious workup. Titrate lactulose to 2-3 loose bms. Will need to try obtain prior endoscopy reports if possible otherwise would require EGD for variceal surveillance once further optimized. <Emilie Montgomery - Last Filed: 01/09/19 18:00>
[2019-01-09] MEDS ORDERED: NAPH,MB-DB/K PH,MBDB POWDER PACKET PO ONE (15:01)
[2019-01-09] MEDS: MORPHINE SULFATE 2 MG/ML VIAL IM PRN (17:45)
[2019-01-09] MEDS: LIDOCAINE PATCH REMOVAL MC SCH (23:09)
[2019-01-10] MEDS: HEPARIN NA (PORCINE) 5,000 UNITS/ML 1ML VIAL SQ SCH ×3 (01:42→17:48)
[2019-01-10] MEDS ORDERED: SODIUM CHLORIDE 0.45% 1,000 ML IV SCH (06:30)
[2019-01-10] MEDS: MORPHINE SULFATE 2 MG/ML VIAL IM PRN (06:31)
[2019-01-10 08:29] LABS: BILIRUBIN,TOTAL 2.6 mg/dL (0.2-1)
[2019-01-10] MEDS: RIFAXIMIN 550 MG TABLET (UD) PO SCH ×2 (09:30→21:55)
[2019-01-10] MEDS: PANTOPRAZOLE SODIUM 40 MG VIAL IVPUSH SCH (09:30)
[2019-01-10] MEDS: metoPROLOL SUCCINATE 25 MG TAB.SR.24H (FP) PO SCH (09:30)
[2019-01-10] MEDS: LACTULOSE 20 GM/30 ML UDC (FOR ORAL USE ONLY) PO SCH ×2 (09:30→21:40)
[2019-01-10] MEDS ORDERED: SODIUM CHLORIDE 250 ML IV STA (09:49)
--- NOTE | 2019-01-10 09:52 | PN ---
Progress Note, Physician Chief Complaint: AWAKE ALERT X 2 SONO REVIEWED TOTAL BILI ELEVATED - Current Medication List Current Medications: Active Medications Acetaminophen (Ofirmev Injection -) 1,000 mg IVPB Q6H PRN PRN Reason: PAIN OR FEVER Docusate Sodium (Colace -) 100 mg PO Q8H PRN PRN Reason: CONSTIPATION Ergocalciferol (Drisdol -) 50,000 unit PO Q7D@1000 [facility] Heparin Sodium (Porcine) (Heparin -) 5,000 unit SQ Q8H-IV [facility] Last Admin: 01/10/19 09:30 Dose: 5,000 unit Sodium Chloride (Normal Saline -) 250 mls @ 250 mls/hr IV ASDIR [facility] Stop: 01/10/19 10:48 Sodium Chloride (1/2 Normal Saline) 1,000 mls @ 100 mls/hr IV ASDIR [facility] Lactulose (Cephulac (Oral Use)) 20 gm PO BID [facility] Last Admin: 01/09/19 23:09 Dose: 20 gm Metoprolol Succinate (Toprol Xl -) 25 mg PO DAILY [facility] Last Admin: 01/09/19 09:14 Dose: 25 mg Miscellaneous (Lidoderm Patch Removal) 1 each MC DAILY@2200 [facility] Last Admin: 01/09/19 23:09 Dose: 1 each Morphine Sulfate (Morphine Sulfate) 2 mg IM Q6H PRN PRN Reason: PAIN LEVEL 7 - 10 Last Admin: 01/10/19 06:31 Dose: 2 mg Ondansetron HCl (Zofran Injection) 4 mg IVPUSH Q6H PRN PRN Reason: NAUSEA Last Admin: 01/09/19 13:16 Dose: 4 mg Pantoprazole Sodium (Protonix Iv) 40 mg IVPUSH DAILY [facility] Last Admin: 01/10/19 09:30 Dose: 40 mg Rifaximin (Xifaxan -) 550 mg PO BID [facility] Senna (Senna -) 2 tab PO HS PRN PRN Reason: CONSTIPATION - Objective Vital Signs: Vital Signs Temperature 99.0 F 01/10/19 09:00 Pulse Rate 60 01/10/19 09:00 Respiratory Rate 18 01/10/19 09:00 Blood Pressure 98/50 L 01/10/19 09:00 O2 Sat by Pulse Oximetry (%) 98 01/09/19 21:00 Constitutional: Yes: Mild Distress Cardiovascular: Yes: Regular Rate and Rhythm Respiratory: Yes: Regular Gastrointestinal: Yes: Tenderness Musculoskeletal: Yes: Other Extremities: Yes: WNL Edema: No Integumentary: Yes: WNL Wound/Incision: Yes: Clean/Dry Neurological: Yes: Confusion Psychiatric: Yes: Other Labs: CBC, BMP 01/09/19 06:54 01/09/19 06:54 INR, PTT INR 1.46 (0.83-1.09) H 01/08/19 15:55 Problem List - Problems (1) Pancreatitis, acute Code(s): K85.90 - ACUTE PANCREATITIS WITHOUT NECROSIS OR INFECTION, UNSP (2) Altered mental state Code(s): R41.82 - ALTERED MENTAL STATUS, UNSPECIFIED (3) Dehydration Code(s): E86.0 - DEHYDRATION (4) Hepatic encephalopathy Code(s): K72.90 - HEPATIC FAILURE, UNSPECIFIED WITHOUT COMA (5) Urinary tract infection Code(s): N39.0 - URINARY TRACT INFECTION, SITE NOT SPECIFIED Qualifiers: Urinary tract infection type: site unspecified Hematuria presence: without hematuria Qualified Code(s): N39.0 - Urinary tract infection, site not specified (6) Abdominal pain Code(s): R10.9 - UNSPECIFIED ABDOMINAL PAIN Assessment/Plan NPO FOR HIDA SCAN IVF NS BOLUS 250CC, THEN 100CC/HR CXR R/O CHF SONO ABDOMEN REVIEWED PAIN CONTROL GI EVAL SURGERY CONSULT DVT PROPHYLAXIS
[2019-01-10 10:58] VITALS: BMI 24.7
--- NOTE | 2019-01-10 13:01 | PN.GI ---
GI Progress Note - Objective Vital Signs: Vital Signs Temperature 99.0 F 01/10/19 09:00 Pulse Rate 60 01/10/19 09:00 Respiratory Rate 18 01/10/19 09:00 Blood Pressure 98/50 L 01/10/19 09:00 O2 Sat by Pulse Oximetry (%) 98 01/09/19 21:00 Labs: CBC, BMP 01/09/19 06:54 01/09/19 06:54 INR, PTT INR 1.46 (0.83-1.09) H 01/08/19 15:55 Problem List - Problems (1) Altered mental state Code(s): R41.82 - ALTERED MENTAL STATUS, UNSPECIFIED (2) Dehydration Code(s): E86.0 - DEHYDRATION (3) Hepatic encephalopathy Code(s): K72.90 - HEPATIC FAILURE, UNSPECIFIED WITHOUT COMA (4) Urinary tract infection Code(s): N39.0 - URINARY TRACT INFECTION, SITE NOT SPECIFIED Qualifiers: Qualified Code(s): N39.0 - Urinary tract infection, site not specified (5) Abdominal pain Code(s): R10.9 - UNSPECIFIED ABDOMINAL PAIN (6) 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
--- NOTE | 2019-01-10 13:49 | CONSULT ---
- Consultation REQUESTING PROVIDER: CONSULT REQUEST: We have been asked to surgically evaluate this patient for abd pain and elevated T.bili PCP:Raciel Rowley HISTORY OF PRESENT ILLNESS: 68yo F presented to the ED with complaints of increase AMS as per her . Pt has a history of Hep C cirrhosis and dementia. Pt had a abd US that showed concern for acute/chronic cholecystitis, so surgical team was asked to evaluate. Pt had previous imaging done several months ago, which showed questionable gallbladder changes. Currently pt denies any abd pain or nausea. She is to go down for a HIDA scan PMHx: Hep C cirrhosis, HTN, Home Medications Medication Instructions Recorded Metoprolol Succinate [Toprol XL -] 25 mg PO DAILY 11/01/14 traMADol HCL [Ultram -] 50 mg PO BID 11/01/14 Zolpidem Tartrate [Ambien] 5 mg PO HS #30 tablet 11/04/14 Lactulose (Oral Use) [Cephulac -] 20 gm PO BID udc 12/05/17 Ergocalciferol [Vitamin D2] 50,000 unit PO Q7D@1000 01/08/19 Furosemide [Lasix] 80 mg PO DAILY 01/08/19 Spironolactone [Aldactone -] 75 mg PO BID 01/08/19 Allergies Allergy/AdvReac Type Severity Reaction Status Date / Time No Known Allergies Allergy Verified 01/08/19 13:25 PHYSICAL EXAM: GENERAL: Awake, alert, and fully oriented, in no acute distress. HEAD: Normal with no signs of trauma. EYES: PERRL, sclera anicteric, conjunctiva clear. NECK: Normal ROM, supple without lymphadenopathy, JVD, or masses. LUNGS: breathing comfortably HEART: Regular rate and rhythm. ABDOMEN: Soft, nontender, not distended, no guarding, no rebound, no masses. No organomegaly. LOWER EXTREMITIES: warm, well-perfused. No calf tenderness. No peripheral edema. NEUROLOGICAL: Normal speech, gait not observed. PSYCH: Cooperative. Good eye contact. Appropriate mood and affect. SKIN: Warm, dry, normal turgor, no rashes or lesions noted. Vital Signs Temperature 99.0 F 01/10/19 09:00 Pulse Rate 60 01/10/19 09:00 Respiratory Rate 18 01/10/19 09:00 Blood Pressure 98/50 L 01/10/19 09:00 O2 Sat by Pulse Oximetry (%) 98 01/09/19 21:00 Lab Results WBC 7.0 K/mm3 (4.0-10.0) 01/09/19 06:54 RBC 3.28 M/mm3 (3.60-5.2) L 01/09/19 06:54 Hgb 11.9 GM/dL (10.7-15.3) 01/09/19 06:54 Hct 34.3 % (32.4-45.2) 01/09/19 06:54 MCV 104.6 fl (80-96) H 01/09/19 06:54 MCHC 34.7 g/dl (32.0-36.0) 01/09/19 06:54 RDW 15.0 % (11.6-15.6) 01/09/19 06:54 Plt Count 85 K/MM3 (134-434) L 01/09/19 06:54 Sodium 135 mmol/L (136-145) L 01/09/19 06:54 Potassium 3.7 mmol/L (3.5-5.1) 01/09/19 06:54 Chloride 107 mmol/L (98-107) 01/09/19 06:54 Carbon Dioxide 20 mmol/L (21-32) L 01/09/19 06:54 Anion Gap 9 MMOL/L (8-16) 01/09/19 06:54 BUN 54.3 mg/dL (7-18) H 01/09/19 06:54 Creatinine 1.1 mg/dL (0.55-1.3) 01/09/19 06:54 Random Glucose 79 mg/dL (74-106) 01/09/19 06:54 Calcium 8.0 mg/dL (8.5-10.1) L 01/09/19 06:54 INR 1.46 (0.83-1.09) H 01/08/19 15:55 Problem List - Problems (1) Thickening of wall of gallbladder Assessment/Plan: Plan -pt currently has no abd pain or discomfort, US findings most likely chronic in nature. HIDA no acute cholecystitis, no need for surgical intervention at this time. - Due to pts high MELD score and cirrhosis is a poor candidate for surgical intervention -recommend follow with GI -medical management. Pt seen and discussed with Dr. Jung who agrees with plan. Code(s): K82.8 - OTHER SPECIFIED DISEASES OF GALLBLADDER
[2019-01-10] MEDS: SODIUM CHLORIDE 0.45% 1,000 ML IV SCH (14:07)
--- NOTE | 2019-01-10 15:37 | PN.GI ---
GI Progress Note Subjective: Denies abdominal pain wants to eat Looks like baseline bilirubin from november 2017 - Objective Vital Signs: Vital Signs Temperature 97.5 F L 01/10/19 14:52 Pulse Rate 66 01/10/19 14:52 Respiratory Rate 20 01/10/19 14:52 Blood Pressure 106/54 L 01/10/19 14:52 O2 Sat by Pulse Oximetry (%) 98 01/10/19 09:30 Constitutional: Calm Eyes: No: Sclera Icterus Cardiovascular: Yes: Regular Rate and Rhythm Respiratory: Yes: Diminished (at bases bilaterally with poor insp effort) Gastrointestinal Inspection: No: Distention ...Auscultate: Yes: Normoactive Bowel Sounds ...Palpate: Yes: Soft. No: Hepatomegaly, Splenomegaly, Tenderness Edema: No (No LE edema) Neurological: Yes: Alert, Oriented (x person, place, partially to time) Labs: CBC, BMP 01/09/19 06:54 01/09/19 06:54 INR, PTT INR 1.46 (0.83-1.09) H 01/08/19 15:55 Problem List - Problems (1) Altered mental state Assessment/Plan: Alert HE, likely precipitated by UTI Continue current regimen of rifaximin and lactulose. Titrate lactulose to 4-5 loose BM's per day Exclusion of aletrnate etiologies of altered mental status per PMD Code(s): R41.82 - ALTERED MENTAL STATUS, UNSPECIFIED (2) Pancreatitis, acute Assessment/Plan: No clinical evicence of pancreatitis Would stop checking lipase Code(s): K85.90 - ACUTE PANCREATITIS WITHOUT NECROSIS OR INFECTION, UNSP (3) Thickening of wall of gallbladder Assessment/Plan: Chronic finding likely related to portal HTN and hypoalbuminemic state. No clinical evidence of acute cholecystitis Looks like the gallbladder fills on HIDA. Awaiting official result CLear liquids ordered for now then advance as tolerated Code(s): K82.8 - OTHER SPECIFIED DISEASES OF GALLBLADDER (4) Goals of care, counseling/discussion Assessment/Plan: Ultimate goals of care in the setting of her chronic liver disease will need to be clarified Was following with Dr. Suggs as outpatient (MRI from 07/07 was outpatient study ). Can follow-up when acute issues are resolved Code(s): Z71.89 - OTHER SPECIFIED COUNSELING
[2019-01-10] MEDS ORDERED: CEFTRIAXONE 1 GM in DEXTROSE 5%-WATER - 50 ML IVPB ONE (20:03)
[2019-01-10] MEDS ORDERED: cefTRIAXone SODIUM 1 GM VIAL ONE (21:01)
[2019-01-10] MEDS ORDERED: DEXTROSE 5%-WATER - 50 ML IVPB ONE (21:01)
[2019-01-10] MEDS: LIDOCAINE PATCH REMOVAL MC SCH (21:55)
[2019-01-11] MEDS: HEPARIN NA (PORCINE) 5,000 UNITS/ML 1ML VIAL SQ SCH ×3 (02:56→17:04)
[2019-01-11] MEDS: SODIUM CHLORIDE 0.45% 1,000 ML IV SCH ×2 (03:16→09:03)
--- NOTE | 2019-01-11 07:50 | PN.GI ---
GI Progress Note Subjective: No acute events overnight States feeling hungry - Objective Vital Signs: Vital Signs Temperature 97.7 F 01/11/19 04:00 Pulse Rate 67 01/11/19 04:00 Respiratory Rate 18 01/11/19 04:00 Blood Pressure 105/52 L 01/11/19 04:00 O2 Sat by Pulse Oximetry (%) 98 01/10/19 09:30 Constitutional: Calm Eyes: No: Sclera Icterus Cardiovascular: Yes: Regular Rate and Rhythm Respiratory: Yes: CTA Bilaterally, Diminished Gastrointestinal Inspection: No: Distention, Scars ...Auscultate: Yes: Normoactive Bowel Sounds ...Palpate: Yes: Soft. No: Splenomegaly, Tenderness ...Percussion: No: Tympanitic Edema: No (No LE edema) Neurological: Yes: Alert Labs: Problem List - Problems (1) Altered mental state Assessment/Plan: Clinically improved Continue regimen of lactulose and rifaximin Code(s): R41.82 - ALTERED MENTAL STATUS, UNSPECIFIED (2) Thickening of wall of gallbladder Assessment/Plan: Chronic finding. Asymptomatic. Suspect secondary to portal HTN and hypoalbuminemic state HIDA was negative Advance diet Code(s): K82.8 - OTHER SPECIFIED DISEASES OF GALLBLADDER
[2019-01-11 08:05] LABS: HEMATOCRIT 31.8 % (32.4-45.2); HEMOGLOBIN 11.2 GM/dL (10.7-15.3); MCH 36.9 pg (25.7-33.7); MCHC 35.1 g/dl (32.0-36.0); MEAN CELL VOLUME 105.1 fl (80-96); MEAN PLT VOLUME 8.4 fl (7.5-11.1); PLATELET COUNT 94 K/MM3 (134-434); RBC 3.03 M/mm3 (3.60-5.2); RDW 14.8 % (11.6-15.6); WHITE BLOOD COUNT 9.3 K/mm3 (4.0-10.0)
[2019-01-11 08:43] LABS: ALBUMIN 1.9 g/dl (3.4-5.0); BILIRUBIN,TOTAL 1.6 mg/dL (0.2-1); BLOOD UREA NITROGEN 32.4 mg/dL (7-18); CALCIUM 7.7 mg/dL (8.5-10.1); CREATININE 1.2 mg/dL (0.55-1.3); POTASSIUM 3.9 mmol/L (3.5-5.1); TOT PROT 5.4 g/dl (6.4-8.2)
[2019-01-11] MEDS ORDERED: DEXTROSE 5%-WATER - 50 ML IVPB ONE (08:54)
[2019-01-11] MEDS ORDERED: cefTRIAXone SODIUM 1 GM VIAL ONE (08:54)
[2019-01-11] MEDS: LACTULOSE 20 GM/30 ML UDC (FOR ORAL USE ONLY) PO SCH ×2 (09:01→22:23)
[2019-01-11] MEDS: PANTOPRAZOLE SODIUM 40 MG VIAL IVPUSH SCH (09:02)
[2019-01-11] MEDS: metoPROLOL SUCCINATE 25 MG TAB.SR.24H (FP) PO SCH (09:03)
[2019-01-11] MEDS ORDERED: CEFTRIAXONE 1 GM in DEXTROSE 5%-WATER - 50 ML IVPB SCH (10:00)
[2019-01-11] MEDS: RIFAXIMIN 550 MG TABLET (UD) PO SCH ×2 (10:34→22:23)
[2019-01-11] MEDS: ONDANSETRON 4 MG/2 ML VIAL IVPUSH PRN (10:35)
--- NOTE | 2019-01-11 12:16 | PN ---
Progress Note, Physician History of Present Illness: 68 year old female, with a significant past medical history of dementia, chronic UTI, hypertension, hepatitis C and cirrhosis, and anxiety, who presents to the emergency department for evaluation of unsteady gait and altered mental status. - Current Medication List Current Medications: Active Medications Acetaminophen (Ofirmev Injection -) 1,000 mg IVPB Q6H PRN PRN Reason: PAIN OR FEVER Last Admin: 01/11/19 03:01 Dose: 1,000 mg Docusate Sodium (Colace -) 100 mg PO Q8H PRN PRN Reason: CONSTIPATION Ergocalciferol (Drisdol -) 50,000 unit PO Tu@1000 [facility] Heparin Sodium (Porcine) (Heparin -) 5,000 unit SQ Q8H-IV [facility] Last Admin: 01/11/19 09:02 Dose: 5,000 unit Sodium Chloride (1/2 Normal Saline) 1,000 mls @ 100 mls/hr IV ASDIR [facility] Last Admin: 01/11/19 09:03 Dose: 100 mls/hr Ceftriaxone Sodium 1 gm/ (Dextrose) 50 mls @ 100 mls/hr IVPB DAILY [facility]; Protocol Last Admin: 01/11/19 09:01 Dose: 100 mls/hr Lactulose (Cephulac (Oral Use)) 20 gm PO BID [facility] Last Admin: 01/11/19 09:01 Dose: 20 gm Metoprolol Succinate (Toprol Xl -) 25 mg PO DAILY [facility] Last Admin: 01/11/19 09:03 Dose: 25 mg Miscellaneous (Lidoderm Patch Removal) 1 each MC DAILY@2200 [facility] Last Admin: 01/10/19 21:55 Dose: 1 each Morphine Sulfate (Morphine Sulfate) 2 mg IM Q6H PRN PRN Reason: PAIN LEVEL 7 - 10 Last Admin: 01/10/19 06:31 Dose: 2 mg Ondansetron HCl (Zofran Injection) 4 mg IVPUSH Q6H PRN PRN Reason: NAUSEA Last Admin: 01/11/19 10:35 Dose: 4 mg Pantoprazole Sodium (Protonix Iv) 40 mg IVPUSH DAILY [facility] Last Admin: 01/11/19 09:02 Dose: 40 mg Rifaximin (Xifaxan -) 550 mg PO BID [facility] Last Admin: 01/11/19 10:34 Dose: 550 mg Senna (Senna -) 2 tab PO HS PRN PRN Reason: CONSTIPATION - Objective Vital Signs: Vital Signs Temperature 98.0 F 01/11/19 08:00 Pulse Rate 70 01/11/19 08:00 Respiratory Rate 20 01/11/19 08:00 Blood Pressure 116/68 01/11/19 08:00 O2 Sat by Pulse Oximetry (%) 97 01/11/19 09:00 Labs: CBC, BMP 01/11/19 06:21 01/11/19 06:21 INR, PTT INR 1.46 (0.83-1.09) H 01/08/19 15:55 Problem List - Problems (1) Thickening of wall of gallbladder Assessment/Plan: - hida negative dc abx Code(s): K82.8 - OTHER SPECIFIED DISEASES OF GALLBLADDER (2) Hepatic encephalopathy Assessment/Plan: hold ambien overnight monitor Code(s): K72.90 - HEPATIC FAILURE, UNSPECIFIED WITHOUT COMA (3) CHF (congestive heart failure) Assessment/Plan: stable monitor Code(s): I50.9 - HEART FAILURE, UNSPECIFIED (4) 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
--- NOTE | 2019-01-11 16:58 | PN ---
Progress Note (short form) - Note Progress Note: Attending Surgeon Patient seen and evaluated; concur w/ a/p as outlined in PA note. Deandre Jung MD FACS
[2019-01-11] MEDS: LIDOCAINE PATCH REMOVAL MC SCH ×2 (22:00→23:00)
[2019-01-12] MEDS: HEPARIN NA (PORCINE) 5,000 UNITS/ML 1ML VIAL SQ SCH ×3 (02:28→19:32)
[2019-01-12] MEDS: metoPROLOL SUCCINATE 25 MG TAB.SR.24H (FP) PO SCH (12:54)
[2019-01-12] MEDS: RIFAXIMIN 550 MG TABLET (UD) PO SCH ×2 (12:54→21:24)
[2019-01-12] MEDS: PANTOPRAZOLE 40 MG TABLET (FP) PO SCH (12:54)
[2019-01-12] MEDS: LACTULOSE 20 GM/30 ML UDC (FOR ORAL USE ONLY) PO SCH ×2 (12:54→21:24)
--- NOTE | 2019-01-12 13:56 | PN ---
Progress Note, Physician - Current Medication List Current Medications: Active Medications Acetaminophen (Ofirmev Injection -) 1,000 mg IVPB Q6H PRN PRN Reason: PAIN OR FEVER Last Admin: 01/11/19 03:01 Dose: 1,000 mg Docusate Sodium (Colace -) 100 mg PO Q8H PRN PRN Reason: CONSTIPATION Ergocalciferol (Drisdol -) 50,000 unit PO Tu@1000 [facility] Heparin Sodium (Porcine) (Heparin -) 5,000 unit SQ Q8H-IV [facility] Last Admin: 01/12/19 12:54 Dose: 5,000 unit Lactulose (Cephulac (Oral Use)) 20 gm PO BID [facility] Last Admin: 01/12/19 12:54 Dose: 20 gm Metoprolol Succinate (Toprol Xl -) 25 mg PO DAILY [facility] Last Admin: 01/12/19 12:54 Dose: 25 mg Miscellaneous (Lidoderm Patch Removal) 1 each MC DAILY@2200 [facility] Last Admin: 01/11/19 23:00 Dose: Not Given Pantoprazole Sodium (Protonix -) 40 mg PO DAILY [facility] Last Admin: 01/12/19 12:54 Dose: 40 mg Rifaximin (Xifaxan -) 550 mg PO BID [facility] Last Admin: 01/12/19 12:54 Dose: 550 mg Senna (Senna -) 2 tab PO HS PRN PRN Reason: CONSTIPATION - Objective Vital Signs: Vital Signs Temperature 98.2 F 01/12/19 06:00 Pulse Rate 82 01/12/19 06:00 Respiratory Rate 20 01/12/19 06:00 Blood Pressure 104/47 L 01/12/19 06:00 O2 Sat by Pulse Oximetry (%) 97 01/11/19 09:00 Cardiovascular: Yes: Regular Rate and Rhythm Respiratory: Yes: Regular, CTA Bilaterally Gastrointestinal: Yes: Normal Bowel Sounds, Soft Labs: CBC, BMP 01/11/19 06:21 01/11/19 06:21 INR, PTT INR 1.46 (0.83-1.09) H 01/08/19 15:55 Problem List - Problems (1) Thickening of wall of gallbladder Assessment/Plan: - hida negative dc abx gi noted Code(s): K82.8 - OTHER SPECIFIED DISEASES OF GALLBLADDER (2) Hepatic encephalopathy [facility]Plan[facility] Code(s): K72.90 - HEPATIC FAILURE, UNSPECIFIED WITHOUT COMA (3) CHF (congestive heart failure) Assessment/Plan: stable monitor Code(s): I50.9 - HEART FAILURE, UNSPECIFIED (4) 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
[2019-01-12] MEDS ORDERED: PT OWN MED DRAWER 7, Y5N ONE (21:11)
[2019-01-12] MEDS: LIDOCAINE PATCH REMOVAL MC SCH (21:25)
[2019-01-13] MEDS: HEPARIN NA (PORCINE) 5,000 UNITS/ML 1ML VIAL SQ SCH ×3 (01:40→17:58)
[2019-01-13 08:58] LABS: BILIRUBIN,TOTAL 1.5 mg/dL (0.2-1); BLOOD UREA NITROGEN 27.1 mg/dL (7-18); CALCIUM 7.9 mg/dL (8.5-10.1); CREATININE 1.2 mg/dL (0.55-1.3); POTASSIUM 4.2 mmol/L (3.5-5.1); TOT PROT 5.7 g/dl (6.4-8.2)
[2019-01-13] MEDS: PANTOPRAZOLE 40 MG TABLET (FP) PO SCH (10:00)
[2019-01-13] MEDS: RIFAXIMIN 550 MG TABLET (UD) PO SCH ×2 (10:01→23:15)
[2019-01-13] MEDS: metoPROLOL SUCCINATE 25 MG TAB.SR.24H (FP) PO SCH (10:03)
--- NOTE | 2019-01-13 11:22 | PN ---
Progress Note (short form) - Note Progress Note: Pt awake, alert, denies abdominal discomfort. Having frequent bowel movements -- on lactulose and stool softener. Will d/c stool softener. Pt states she was treated in the past with interferon injections and was cured of her HCV. No objection to discharge with follow-up with her outpatient GI, Dr Suggs.
--- NOTE | 2019-01-13 11:48 | PN ---
Progress Note, Physician - Current Medication List Current Medications: Active Medications Acetaminophen (Ofirmev Injection -) 1,000 mg IVPB Q6H PRN PRN Reason: PAIN OR FEVER Last Admin: 01/11/19 03:01 Dose: 1,000 mg Ergocalciferol (Drisdol -) 50,000 unit PO Tu@1000 [facility] Heparin Sodium (Porcine) (Heparin -) 5,000 unit SQ Q8H-IV [facility] Last Admin: 01/13/19 01:40 Dose: 5,000 unit Lactulose (Cephulac (Oral Use)) 20 gm PO BID [facility] Last Admin: 01/12/19 21:24 Dose: 20 gm Metoprolol Succinate (Toprol Xl -) 25 mg PO DAILY [facility] Last Admin: 01/12/19 12:54 Dose: 25 mg Miscellaneous (Lidoderm Patch Removal) 1 each MC DAILY@2200 [facility] Last Admin: 01/12/19 21:25 Dose: Not Given Pantoprazole Sodium (Protonix -) 40 mg PO DAILY [facility] Last Admin: 01/12/19 12:54 Dose: 40 mg Rifaximin (Xifaxan -) 550 mg PO BID [facility] Last Admin: 01/12/19 21:24 Dose: 550 mg - Objective Vital Signs: Vital Signs Temperature 98.9 F 01/13/19 05:26 Pulse Rate 76 01/13/19 05:26 Respiratory Rate 18 01/13/19 05:26 Blood Pressure 117/58 L 01/13/19 05:26 O2 Sat by Pulse Oximetry (%) 100 01/12/19 21:00 Cardiovascular: Yes: Regular Rate and Rhythm Respiratory: Yes: Regular, CTA Bilaterally Gastrointestinal: Yes: Normal Bowel Sounds, Soft Labs: CBC, BMP 01/11/19 06:21 01/13/19 06:42 INR, PTT INR 1.46 (0.83-1.09) H 01/08/19 15:55 Problem List - Problems (1) Thickening of wall of gallbladder Assessment/Plan: - hida negative dc abx gi noted Code(s): K82.8 - OTHER SPECIFIED DISEASES OF GALLBLADDER (2) Hepatic encephalopathy Assessment/Plan: hold ambien overnight monitor Code(s): K72.90 - HEPATIC FAILURE, UNSPECIFIED WITHOUT COMA (3) CHF (congestive heart failure) Assessment/Plan: stable monitor Code(s): I50.9 - HEART FAILURE, UNSPECIFIED (4) 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
[2019-01-13] MEDS: LACTULOSE 20 GM/30 ML UDC (FOR ORAL USE ONLY) PO SCH ×2 (17:57→23:15)
[2019-01-13] MEDS: LIDOCAINE PATCH REMOVAL MC SCH (23:15)
[2019-01-14] MEDS: HEPARIN NA (PORCINE) 5,000 UNITS/ML 1ML VIAL SQ SCH ×2 (01:27→09:49)
[2019-01-14 06:15] VITALS: TEMP 98.2
[2019-01-14 07:47] LABS: BASO % 0.4 % (0-2.0); EOS % 0.4 % (0-4.5); HEMATOCRIT 31.7 % (32.4-45.2); HEMOGLOBIN 11.3 GM/dL (10.7-15.3); LYMPH % 8.9 % (8-40); MCH 37.3 pg (25.7-33.7); MCHC 35.6 g/dl (32.0-36.0); MEAN CELL VOLUME 104.6 fl (80-96); MEAN PLT VOLUME 8.2 fl (7.5-11.1); MONO % 12.5 % (3.8-10.2); NEUT % 77.8 % (42.8-82.8); PLATELET COUNT 91 K/MM3 (134-434); RBC 3.03 M/mm3 (3.60-5.2); RDW 14.5 % (11.6-15.6); WHITE BLOOD COUNT 9.7 K/mm3 (4.0-10.0)
[2019-01-14 08:02] LABS: BILIRUBIN,TOTAL 1.6 mg/dL (0.2-1); BLOOD UREA NITROGEN 34.9 mg/dL (7-18); CALCIUM 7.8 mg/dL (8.5-10.1); CREATININE 1.4 mg/dL (0.55-1.3); POTASSIUM 4.7 mmol/L (3.5-5.1); TOT PROT 5.7 g/dl (6.4-8.2)
--- NOTE | 2019-01-14 08:45 | DS ---
Physical Examination Vital Signs: Vital Signs Temperature 98.2 F 01/14/19 06:13 Pulse Rate 68 01/14/19 06:13 Respiratory Rate 18 01/14/19 06:13 Blood Pressure 100/51 L 01/14/19 06:13 O2 Sat by Pulse Oximetry (%) 95 01/13/19 21:00 Constitutional: Yes: No Distress Eyes: Yes: WNL, Other Neck: Yes: WNL Cardiovascular: Yes: Regular Rate and Rhythm Respiratory: Yes: WNL Gastrointestinal: Yes: WNL Renal/: Yes: WNL Musculoskeletal: Yes: Muscle Weakness Edema: No Integumentary: Yes: WNL Wound/Incision: Yes: Clean/Dry Neurological: Yes: WNL ...Motor Strength: WNL Psychiatric: Yes: WNL Labs: CBC, BMP 01/14/19 06:45 01/14/19 06:45 Discharge Summary Reason For Visit: UTI Current Active Problems Altered mental state (Acute) Dehydration (Acute) Goals of care, counseling/discussion (Acute) Hepatic encephalopathy (Acute) Pancreatitis, acute (Acute) Prophylactic measure (Acute) Thickening of wall of gallbladder (Acute) Urinary tract infection (Acute) Weakness (Acute) Procedures: Principal: ct scan Hospital Course: admitted gi distress, bleed, toxic metabolic encephalopathy, liver disease. treated with iv fluids, xifaxin, monitored, will need snf Condition: Improved - Instructions Diet, Activity, Other Instructions: snf placement f/u with your pmd after discharge Referrals: Amanda Suggs DO [Staff Physician] - Disposition: [facility] - Home Medications Comprehensive Discharge Medication List: Ambulatory Orders Metoprolol Succinate [Toprol XL -] 25 mg PO DAILY 11/01/14 Zolpidem Tartrate [Ambien] 5 mg PO HS #30 tablet 11/04/14 Lactulose (Oral Use) [Cephulac -] 20 gm PO BID [facility] 12/05/17 Ergocalciferol [Vitamin D2] 50,000 unit PO Q7D@1000 01/08/19 Furosemide [Lasix] 80 mg PO DAILY 01/08/19 Docusate Sodium [Colace -] 100 mg PO Q8H PRN capsule 01/14/19 Lidocaine Patch Removal [Lidoderm Patch Removal] 1 each MC DAILY@2200 each Pantoprazole Sodium [Protonix -] 40 mg PO DAILY tablet.ec 01/14/19 Rifaximin [Xifaxan -] 550 mg PO BID tablet 01/14/19 Sennosides [Senna -] 2 tab PO HS PRN tablet 01/14/19
[2019-01-14] MEDS: PANTOPRAZOLE 40 MG TABLET (FP) PO SCH (09:49)
[2019-01-14] MEDS: RIFAXIMIN 550 MG TABLET (UD) PO SCH (09:49)
[2019-01-14] MEDS: metoPROLOL SUCCINATE 25 MG TAB.SR.24H (FP) PO SCH ×2 (09:49→09:56)
[2019-01-14] MEDS: LACTULOSE 20 GM/30 ML UDC (FOR ORAL USE ONLY) PO SCH (09:50)
[2019-01-14 09:55] VITALS: BP 98/45; PULSE 74
[2019-01-15] MEDS ORDERED: ERGOCALCIFEROL (VIT D2) 50,000 UNIT (1.25 MG) CAPSULE PO SCH (10:00)
== END 2019-01-14 14:03 | disposition home or self-care (01) | DRG 441 ==
LOC: JER 13:16 → JERBED 18:39 → J7W 21:08
PROVIDERS: ADMIT Family Medicine; ATTEND Family Medicine
DX: K72.90 Hepatic failure, unspecified without coma (principal); K72.00 Acute and subacute hepatic failure without coma; I81 Portal vein thrombosis; N39.0 Urinary tract infection, site not specified; E46 Unspecified protein-calorie malnutrition; I50.20 Unspecified systolic (congestive) heart failure; K76.6 Portal hypertension; I11.0 Hypertensive heart disease with heart failure; B18.2 Chronic viral hepatitis C; R62.7 Adult failure to thrive; Z68.25 Body mass index [BMI] 25.0-25.9, adult; E86.0 Dehydration; E83.39 Other disorders of phosphorus metabolism; F41.9 Anxiety disorder, unspecified; R26.9 Unspecified abnormalities of gait and mobility; F03.90 Unspecified dementia, unspecified severity, without behavioral disturbance, psychotic disturbance, mood disturbance, and anxiety; H91.8X3 Other specified hearing loss, bilateral; M54.9 Dorsalgia, unspecified; R01.1 Cardiac murmur, unspecified; R41.82 Altered mental status, unspecified; R10.9 Unspecified abdominal pain; K82.8 Other specified diseases of gallbladder; Z71.89 Other specified counseling; D69.6 Thrombocytopenia, unspecified; R53.1 Weakness; N28.1 Cyst of kidney, acquired; Z29.9 Encounter for prophylactic measures, unspecified
CPT/HCPCS: 36415; 70450-TC; 71045-TC-FY; 76700-TC; 78226-TC; 80053; 80074; 81003; 82105; 82140; 82150; 82247; 82248; 82550; 83690; 83735; 83880; 84100; 84443; 84484; 85025; 85027; 85610; 87040; 87086; 93005; 93010; 93306-TC; 97116-GP; 97162-GP; 99284-25; A9537; J0131; J1644; J7030

== ENCOUNTER 2019-04-20 12:53 | Inpatient (IN) | payer OTHER ==
--- NOTE | 2019-04-20 13:19 | PDOC ---
History of Present Illness - General Chief Complaint: Shortness of Breath Stated Complaint: LIVER/OXGYEN Time Seen by Provider: 04/20/19 13:19 - History of Present Illness Initial Comments: 04/20/19 13:19 68 year old woman w/ PMH of dementia, chronic UTI, hypertension, cirrhosis, hepatitis C, ?systolic HF?, and anxiety who presents with 3 weeks of shortness of breath and increased leg swelling and patient unable to walk for several weeks Dr. Suggs called and provides history: Patient has Hep C decompensated w/ ascites , patient recently decreased on lasix, found to have DVT and put on eliquis for 1-2 weeks. Recommends Rifaximin 550 BID, Abd US, Urine Cr and Na ROS - limited 2/2 dementia, obtained by CARDIOVASCULAR: + shortness of breath RESPIRATORY: No hemoptysis. GASTROINTESTINAL: No nausea, vomiting, diarrhea or constipation. PE GENERAL: dementia HEAD: No signs of trauma, normocephalic, atraumatic EYES: EOMI, sclera anicteric, conjunctiva clear ENT: oropharynx clear without exudates. Moist mucosa NECK: Normal ROM, supple LUNGS: No distress, speaks full sentences, decreased breath sounds on auscultation anteriorly HEART: Regular rate and rhythm, normal S1 and S2, no murmurs, rubs or gallops, peripheral pulses normal and equal bilaterally. ABDOMEN: Soft, nontender No guarding, no rebound. No masses EXTREMITIES : multiple abrasions on knees and forearms with bruising, 2+ pitting edema on bilateral feet to mid calf NEUROLOGICAL: dementia SKIN: Warm, Dry, normal turgor, no rashes or lesions noted MDM DDX including but not limited to: liver failure, renal failure chf exacerb ED Course: patient with + UTI dose zosyn which will cover for sbp if present as patient with ascites hyperglycemia amp d50 with D5 given labs w/ lactic acidosis hyponatremia warren leukocytosis low albumin Case discussed with Dr. Suggs Discussed with Karan Landin who will see patient in AM Discussed case with ICU [employer] Nirmala Conrad, PGY2 Emergency Medicine Past History - Past Medical History Allergies/Adverse Reactions: Allergies Allergy/AdvReac Type Severity Reaction Status Date / Time No Known Allergies Allergy Verified 01/08/19 13:25 Home Medications: Ambulatory Orders Furosemide [Lasix] 40 mg PO BID 01/08/19 Ergocalciferol [Vitamin D2] 50,000 unit PO Q7D@1000 #4 capsule 01/14/19 Metoprolol Succinate [Toprol XL -] 25 mg PO DAILY #30 tab.sr.24h 01/14/19 Apixaban [Eliquis] 2.5 mg PO BID 04/20/19 Ondansetron [Zofran -] 4 mg PO TID 04/20/19 Spironolactone 75 mg PO BID 04/20/19 Lactulose 10 gm PO HS 04/21/19 Anemia: No Asthma: No Cancer: No Cardiac Disorders: No CVA: No COPD: No CHF: No DVT: No Dementia: Yes Diabetes: No GI Disorders: No Disorders: Yes (CHRONIC UTI) HTN: Yes Hypercholesterolemia: No Liver Disease: Yes (CIRRHOSIS, HEP C) Psychiatric Problems: Yes (ANXIETY) Seizures: No Thyroid Disease: No - Surgical History Abdominal Surgery: No Appendectomy: No Cardiac Surgery: No Cholecystectomy: No Lung Surgery: No Neurologic Surgery: No Orthopedic Surgery: No - Psycho Social/Smoking Cessation Hx Smoking History: Never smoked Have you smoked in the past 12 months: No Hx Alcohol Use: No Drug/Substance Use Hx: No Substance Use Type: None Hx Substance Use Treatment: No *Physical Exam - Vital Signs Last Vital Signs Temp Pulse Resp BP Pulse Ox 99 F 92 H 22 H 96/35 L 88 L 04/20/19 12:56 04/20/19 12:56 04/20/19 12:56 04/20/19 12:56 04/20/19 12:56 ED Treatment Course - LABORATORY CBC & Chemistry Diagram: 05/02/19 08:35 05/02/19 08:35 - RADIOLOGY Radiology Studies Ordered: Category Date Time Status CHEST X-RAY PORTABLE* [RAD] Stat Radiology 04/20/19 13:07 Ordered Discharge - Discharge Information Problems reviewed: Yes Clinical Impression/Diagnosis: Hyponatremia, Acute renal failure - Follow up/Referral - Patient Discharge Instructions - Post Discharge Activity Critical Care Total Critical Care Time (in minutes): 90 Critical Care Statement: The care of this patient involved high complexity decision making to prevent further life threatening deterioration of the patient 's condition and/or to evaluate & treat vital organ system(s) failure or risk of failure.
[2019-04-20 13:45] LABS: VENOUS PC02 24.8 mmHg (38-52); VENOUS PH 7.43 (7.31-7.41)
[2019-04-20 13:46] LABS: VENOUS PO2 < 49 mmHg (28-48)
[2019-04-20 13:53] LABS: EPI CELLS 4.7 /HPF (0-5/HPF); HYALINE CASTS 68 /lpf (0-8); URINE APPEARANCE TURBID; URINE BACTERIA 2461.6 /hpf (NEGATIVE); URINE BILIRUBIN 1+ (NEGATIVE); URINE COLOR ORANGE; URINE GLUCOSE (UA) NEGATIVE (NEGATIVE); URINE KETONE NEGATIVE (NEGATIVE); URINE LEUK ESTERASE 3+ (NEGATIVE); URINE NITRITE NEGATIVE (NEGATIVE); URINE PROTEIN 2+ (NEGATIVE); URINE WBC 2456 /hpf (0-5)
[2019-04-20] MEDS ORDERED: LACTATED RINGERS SOLUTION 1000 ML INFUS.BAG IV ONE (14:00)
[2019-04-20] MEDS ORDERED: PIPERACILLIN/TAZOB 3.375 GM 3.375 GM in DEXTROSE 5%-WATER - 50 ML IVPB ONE (14:06)
--- NOTE | 2019-04-20 14:09 | PDOC ---
Attending Attestation - Resident Resident Name: Nirmala Conrad - ED Attending Attestation I have performed the following: I have examined & evaluated the patient, The case was reviewed & discussed with the resident, I agree w/resident's findings & plan, Exceptions are as noted - HPI HPI: 04/20/19 15:19 68yo female sent from Dr. Pearl for admission for worsening liver and kidney function. Pt on eliquis for a recent dvt 2 weeks ago. Falls recently. Pt denies vomiting blood or blood in stool. Pt denies cp, but c/o worsening sob and abd pain. Pt with ascites on exam. Pt tachypnic and cannot provide a complete hx. - Physicial Exam PE: 04/20/19 15:20 Gen: awake, alert, oriented to person and place, not time heent: dry mm, nares clear neck: supple heart: +s1s2 tachy lungs: coarse bs b/l bases otherwise clear abd: soft, +ascites, mild diffuse ttp ext: 4+ pitting edema to LE, abrasions to knees, bruising to knees and feet, abrasion and bruising to UE b/l neuro: confused, moving all extremities, no focal findings, but confused - Critical Care Time Total Critical Care Time: 90 Critical Care Statement: The care of this patient involved high complexity decision making to prevent further life threatening deterioration of the patient 's condition and/or to evaluate & treat vital organ system(s) failure or risk of failure. - Medical Decision Making 04/20/19 14:09 I, Dr. Ryann Coelho, DO, attest that this document has been prepared under my direction and personally reviewed by me in its entirety. I further attest, that it accurately reflects all work, treatment, procedures and medical decision -making performed by me. 04/20/19 15:23 a/p: 68yo female with liver failure from hep c with worsening liver function and renal function -glu low - will replace -recent falls - will obtain ct head given eliquis -resident discussed the case with Dr. Pearl who requests renal consult, xifaxan -will send labs, cultures -pt tachy and hypotensive - will start broad spectrum abx 04/20/19 15:25 resident discussed the case with Dr. 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 Burns for abx 04/20/19 15:55 no acute findings on head ct Heart Score/ECG Review - ECG Intrepretation Comment:: 04/20/19 15:28 sinus at 100, low voltage ekg, nl axis, nl interval, no acute st/t wave findings
[2019-04-20 14:11] LABS: ALBUMIN 1.8 g/dl (3.4-5.0); BILIRUBIN,TOTAL 2.6 mg/dL (0.2-1); BLOOD UREA NITROGEN 93.6 mg/dL (7-18); CALCIUM 8.3 mg/dL (8.5-10.1); CREATININE 5.2 mg/dL (0.55-1.3); MAGNESIUM 1.7 mg/dL (1.8-2.4); N-TERMINAL BNP 4829.9 pg/ml (5-125); PHOSPHOROUS 5.3 mg/dL (2.5-4.9); POTASSIUM 4.4 mmol/L (3.5-5.1); TOT PROT 5.8 g/dl (6.4-8.2)
[2019-04-20 14:17] LABS: INR 2.14 (0.83-1.09); PROTHROMBIN TIME (PATIENT) 25.4 SEC (9.7-13.0)
[2019-04-20] MEDS ORDERED: PIPERACILLIN/TAZOB 2.25 GM 2.25 GM in DEXTROSE 5%-WATER - 50 ML IVPB ONE (14:17)
[2019-04-20] MEDS ORDERED: PIPERACILLIN/TAZOB 3.375 GM 3.375 GM/50 ML BAG IVPB ONE (14:19)
[2019-04-20 14:20] LABS: ACTIVATED PTT 34.4 SECONDS (25.2-36.5)
[2019-04-20] MEDS ORDERED: DEXTROSE 50%-WATER - 25 GM/50 ML VIAL IVPUSH ONE (14:21)
[2019-04-20] MEDS ORDERED: DEXTROSE 50%-WATER 25 GM/50 ML DISP.SYRIN ONE (14:24)
[2019-04-20] MEDS ORDERED: PIPERACILLIN/TAZOB 2.25 GM 2.25 GM/50 ML BAG IVPB ONE (14:24)
[2019-04-20 14:30] LABS: BASO % 0.3 % (0-2.0); EOS % 0.3 % (0-4.5); HEMOGLOBIN 12.4 GM/dL (10.7-15.3); LYMPH % 2.2 % (8-40); MCH 30.4 pg (25.7-33.7); MCHC 33.5 g/dl (32.0-36.0); MEAN CELL VOLUME 90.6 fl (80-96); MEAN PLT VOLUME 9.7 fl (7.5-11.1); MONO % 3.9 % (3.8-10.2); NEUT % 93.3 % (42.8-82.8); PLATELET COUNT 95 K/MM3 (134-434); RBC 4.08 M/mm3 (3.60-5.2); RDW 19.5 % (11.6-15.6); WHITE BLOOD COUNT 20.4 K/mm3 (4.0-10.0)
[2019-04-20] MEDS ORDERED: DEXTROSE 5%-WATER - 1,000 ML IV SCH (14:30)
[2019-04-20] MEDS ORDERED: VANCOMYCIN 1,000 MG in DEXTROSE 5%-WATER - 250 ML IVPB ONE (15:07)
[2019-04-20] MEDS ORDERED: VANCOMYCIN 1 GRAM (PRE-DOCKED) 1,000 MG/250 ML BAG IVPB ONE (15:20)
--- NOTE | 2019-04-20 15:54 | HP ---
Admitting History and Physical - Primary Care Physician PCP: Amanda Suggs - Admission Chief Complaint: worsening liver and kidney function History of Present Illness: Patient is a 68 y/o female with past medical history of Dementia, CHronic UTI, HTN, Cirrhosis, Hepatitis C, CHF. Patient presented to ER at request of PMD. As per at bedside patient had a fall 3 weeks when he was taking her to bathroom. He denies her hitting her head and denies LOC. Patient has also been experiencing worsening SOB and lower extremity edema. PMD recently decreased Lasix dose. Patient is alert and oriented x 2 (person and place not time). 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 Cardiovascular: Yes: HTN, Murmur Gastrointestinal: Yes: Other (cirrhosis) Hepatobiliary: Yes: Cirrhosis, Hepatitis C Infectious Disease: Yes: Other (hep c) Psych: Yes: Anxiety, Other ENT: Yes: Other (hearing loss--uses hearing aides) - Smoking History Smoking history: Never smoked Have you smoked in the past 12 months: No - Alcohol/Substance Use Hx Alcohol Use: No History of Substance Use: reports: None - Social History Usual Living Arrangement: Yes: With Spouse ADL: Family Assistance History of Recent Travel: No Home Medications - Allergies Allergies/Adverse Reactions: Allergies Allergy/AdvReac Type Severity Reaction Status Date / Time No Known Allergies Allergy Verified 01/08/19 13:25 - Home Medications Home Medications: Ambulatory Orders Furosemide [Lasix] 40 mg PO BID 01/08/19 Ergocalciferol [Vitamin D2] 50,000 unit PO Q7D@1000 #4 capsule 01/14/19 Metoprolol Succinate [Toprol XL -] 25 mg PO DAILY #30 tab.sr.24h 01/14/19 Apixaban [Eliquis] 2.5 mg PO BID 04/20/19 Ondansetron [Zofran -] 4 mg PO TID 04/20/19 Spironolactone 25 mg PO BID 04/20/19 Review of Systems - Review of Systems Constitutional: reports: Weakness Eyes: reports: No Symptoms HENT: reports: No Symptoms Neck: reports: No Symptoms Cardiovascular: reports: Chest Pain, Shortness of Breath Respiratory: reports: Cough, SOB Gastrointestinal: reports: Abdominal Pain Genitourinary: reports: Incontinence Breasts: reports: No Symptoms Reported Musculoskeletal: reports: Muscle Weakness Integumentary: reports: Bruising Neurological: reports: Weakness Endocrine: reports: No Symptoms Hematology/Lymphatic: reports: No Symptoms Psychiatric: reports: No Symptoms Physical Examination Vital Signs: Vital Signs Temperature 98.5 F 04/20/19 13:42 Pulse Rate 100 H 04/20/19 13:42 Respiratory Rate 20 04/20/19 13:42 Blood Pressure 99/52 L 04/20/19 13:42 O2 Sat by Pulse Oximetry (%) 92 L 04/20/19 13:42 Constitutional: Yes: No Distress, Calm Eyes: Yes: Conjunctiva Clear HENT: Yes: Atraumatic Neck: Yes: Supple Cardiovascular: Yes: Regular Rate and Rhythm Respiratory: Yes: Regular, Diminished, On Nasal O2 Gastrointestinal: Yes: Normal Bowel Sounds, Soft Musculoskeletal: Yes: Muscle Weakness Extremities: Yes: WNL Edema: Yes (B/L lower extremity) Edema: LLE: 2+, RLE: 2+ Integumentary: Yes: Bruising (multiple bruises to arms, b/l knees) Neurological: Yes: Alert, Confusion Psychiatric: Yes: Alert, Oriented (to person and place) Labs: CBC, BMP 04/20/19 13:28 04/20/19 13:28 Imaging - Results Cat Scan: Report Reviewed Ultrasound: Report Reviewed Problem List - Problems (1) CKD (chronic kidney disease) Assessment/Plan: -BUN/Cr 93.6/5.2 -Renal consult -monitor renal function daily Code(s): N18.9 - CHRONIC KIDNEY DISEASE, UNSPECIFIED (2) Abdominal pain Assessment/Plan: -Abdominal US done and shows liver cirrhosis with splenomegaly with significant amount of free fluid/ascites in upper abdomen and lower quadrants, thickening of gallbladder -GI consult Code(s): R10.9 - UNSPECIFIED ABDOMINAL PAIN (3) Altered mental state Assessment/Plan: -toxic metabolic encephalopathy due to dementia vs renal failure vs CKD Code(s): R41.82 - ALTERED MENTAL STATUS, UNSPECIFIED (4) CHF (congestive heart failure) Assessment/Plan: -daily weights -fluid restriction -strict I&Os -Furosemide on hold due to renal function Code(s): I50.9 - HEART FAILURE, UNSPECIFIED (5) 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 Assessment/Plan: -GI consult -Abdominal US shows liver cirrhosis with splenomegaly with significant amount of free fluid/ascites in upper abdomen and lower quadrants -AST 88, Alk Phos 133 Code(s): B18.2 - CHRONIC VIRAL HEPATITIS C; K74.60 - UNSPECIFIED CIRRHOSIS OF LIVER (6) Hypertension Assessment/Plan: -meds on hold due to Hypotension Code(s): I10 - ESSENTIAL (PRIMARY) HYPERTENSION (7) Hypoxia Assessment/Plan: -Pulm consult -O2 via NC -keep SpO2 >90% -CXR shows mild congestive changes -bronchodilators Code(s): R09.02 - HYPOXEMIA (8) Urinary tract infection Assessment/Plan: -ID consult -Leukocytosis -afebrile -Vancomycin and Zosyn given in ER -UA shows 3+ leuks, 1+ bilirubin, 3+ blood -UC pending Code(s): N39.0 - URINARY TRACT INFECTION, SITE NOT SPECIFIED Qualifiers: Urinary tract infection type: site unspecified Hematuria presence: without hematuria Qualified Code(s): N39.0 - Urinary tract infection, site not specified (9) Sepsis Assessment/Plan: -ID consult -Leukocytosis -afebrile -Vancomycin and Zosyn given in ER -UA shows 3+ leuks, 1+ bilirubin, 3+ blood -UC and BC pending -LA 4.9~4.1, monitor for downtrend -ICU consult Code(s): A41.9 - SEPSIS, UNSPECIFIED ORGANISM (10) DVT (deep venous thrombosis) Assessment/Plan: -Eliquis Code(s): I82.409 - ACUTE EMBOLISM AND THOMBOS UNSP DEEP VN UNSP LOWER EXTREMITY Assessment/Plan see problem list
[2019-04-20 16:23] LABS: OVALOCYTE 1+; PLATELET ESTIMATE DECREASED
[2019-04-20 16:54] LABS: URINE RBC 358.7 /hpf (0-4); YEAST NONE SEEN (NEGATIVE)
[2019-04-20] MEDS ORDERED: DEXTROSE 5%-NORMAL SALINE 1,000 ML IV SCH ×2 (18:15→20:49)
[2019-04-20] MEDS ORDERED: NOREPINEPHRINE BITARTRATE 4,000 MCG in DEXTROSE 5%-WATER - 496 ML IV SCH (18:15)
--- NOTE | 2019-04-20 21:50 | CONSULT ---
Consult - text type - Consultation Consultation Note: PULMONARY/CRITICAL CARE MEDICINE CONSULT NOTE: HPI: Briefly, 68 y/o F with HCV cirrhosis, dementia/hepatic encephalopathy, portal hypertension with ascites, DVT on Eliquis, chronic UTIs who presented to the ED with SOB and LE edema. She was found to be hypoglycemic and hypotensive. Labs were significant for DAVID, leukocytosis, dirty UA and elevated lactate. She was cultured, started on abx and admitted to the ICU. Current Medications Albuterol Sulfate (Ventolin 0.083% Nebulizer Soln -) 1 amp NEB Q6H PRN PRN Reason: SHORT OF BREATH/WHEEZING Apixaban (Eliquis -) 2.5 mg PO BID RADHA Chlorhexidine Gluconate (Hibiclens For Decolonization -) 1 applic TP HS RADHA Ergocalciferol (Drisdol -) 50,000 unit PO Q7D@1000 RADHA Furosemide (Lasix -) 40 mg PO BIDLASIX RADHA Norepinephrine Bitartrate 4, (000 mcg/ Dextrose) 500 mls @ 37.5 mls/hr IV TITR RADHA; Protocol Last Admin: 04/20/19 20:10 Dose: Not Given Dextrose/Sodium Chloride (D5-Ns -) 1,000 mls @ 75 mls/hr IV ASDIR RADHA Metoprolol Succinate (Toprol Xl -) 25 mg PO DAILY [facility] Mupirocin (Bactroban Ointment (For Decolonization) -) 1 applic NS BID RADHA Stop: 04/25/19 21:59 Ondansetron HCl (Zofran -) 4 mg PO TID [facility] Rifaximin (Xifaxan -) 550 mg PO BID RADHA Spironolactone (Aldactone -) 25 mg PO BID [facility] Vital Signs Temp 97.6 F 04/20/19 18:00 Pulse 57 L 04/20/19 21:15 Resp 12 04/20/19 21:15 BP 78/41 L 04/20/19 21:15 Pulse Ox 97 04/20/19 21:00 Intake & Output 04/20/19 04/20/19 04/21/19 06:59 18:59 05:59 Output Total 20 Balance -20 Weight 72.121 kg Output: Urine 20 Laguerre 20 Other: Voiding Method Diaper Diaper Height 5 ft 4 in Body Mass Index (BMI) 27.3 [facility] Method Est/Stated by Patient EXAM: neuro: oriented to person, TENORIO HEENT: icteric sclera, reactive Lungs: diminished Heart: RRR Abd: dense, distended, fluid wave Ext: LE edema, warm CBC, BMP 04/20/19 13:28 04/20/19 13:28 ASSESSMENT: HCV Cirrhosis UTI Septic shock DAVID Lactic acidosis Hypoglycemia DVT Thrombocytopenia Ascites PLAN: -Abx per ID -Gentle hydration - will give Albumin -Dextrose -MAP >50 - Norepi or Vaso if needed -Follow up cultures -AC for DVT -GI PPx while on AC Patient is critically Ill Thank you for this interesting consult [facility] Preciado Pulm/Critical Care HANDS AND DIAL INSPECTOR
[2019-04-20] MEDS ORDERED: SPIRONOLACTONE 25 MG TABLET (FP) PO SCH (22:00)
[2019-04-20] MEDS: CHLORHEXIDINE GLUCONATE 4% CLEANSER FOR DECOLONIZATION TP SCH (22:03)
[2019-04-20] MEDS: MUPIROCIN 2% TOPICAL OINTMENT FOR DECOLONIZATION NS SCH (22:03)
[2019-04-20] MEDS: RIFAXIMIN 550 MG TABLET (UD) PO SCH (22:08)
[2019-04-20] MEDS: APIXABAN 2.5 MG TABLET PO SCH (22:08)
[2019-04-20] MEDS: ALBUMIN HUMAN 25% 12.5 GM/50 ML VIAL IVPB SCH ×2 (22:45→23:13)
[2019-04-20] MEDS: ONDANSETRON 4 MG TABLET PO SCH (23:15)
[2019-04-21] MEDS: ALBUMIN HUMAN 25% 12.5 GM/50 ML VIAL IVPB SCH ×2 (00:30→01:00)
[2019-04-21] MEDS: ALBUTEROL SO4 0.083% IH SOL 2.5 MG/3 ML VIAL.NEB. NEB PRN (03:40)
[2019-04-21] MEDS ORDERED: MORPHINE SULFATE 2 MG/ML VIAL ONE (05:20)
[2019-04-21] MEDS: MORPHINE SULFATE 2 MG/ML VIAL IVPUSH PRN (05:30)
[2019-04-21] MEDS ORDERED: FUROSEMIDE 40 MG TABLET (FP) PO SCH (06:00)
[2019-04-21 06:25] LABS: BASO % 0.2 % (0-2.0); HEMATOCRIT 26.1 % (32.4-45.2); HEMOGLOBIN 9.2 GM/dL (10.7-15.3); LYMPH % 5.7 % (8-40); MCHC 35.3 g/dl (32.0-36.0); MEAN CELL VOLUME 90.9 fl (80-96); MONO % 6.8 % (3.8-10.2); NEUT % 86.3 % (42.8-82.8); PLATELET COUNT 60 K/MM3 (134-434); RBC 2.87 M/mm3 (3.60-5.2); RDW 19.4 % (11.6-15.6)
--- NOTE | 2019-04-21 07:00 | CON.GI ---
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 no documented history of tb or hepatitis - Alcohol/Substance Use Hx Alcohol Use: No History of Substance Use: reports: None - Smoking History Smoking history: Never smoked Have you smoked in the past 12 months: No - Social History Usual Living Arrangement: With Significant Other ADL: Family Assistance History of Recent Travel: No Home Medications - Allergies Allergies/Adverse Reactions: Allergies Allergy/AdvReac Type Severity Reaction Status Date / Time No Known Allergies Allergy Verified 01/08/19 13:25 - Home Medications Home Medications: Ambulatory Orders Furosemide [Lasix] 40 mg PO BID 01/08/19 Ergocalciferol [Vitamin D2] 50,000 unit PO Q7D@1000 #4 capsule 01/14/19 Metoprolol Succinate [Toprol XL -] 25 mg PO DAILY #30 tab.sr.24h 01/14/19 Apixaban [Eliquis] 2.5 mg PO BID 04/20/19 Ondansetron [Zofran -] 4 mg PO TID 04/20/19 Spironolactone 75 mg PO BID 04/20/19 Lactulose 10 gm PO HS 04/21/19 Physical Exam-GI Vital Signs: Vital Signs Temperature 94.8 F L 04/21/19 06:25 Pulse Rate 58 L 04/21/19 06:00 Respiratory Rate 12 04/21/19 06:00 Blood Pressure 96/50 L 04/21/19 06:00 O2 Sat by Pulse Oximetry (%) 97 04/20/19 21:00 Labs: CBC, BMP 04/21/19 05:55 INR, PTT INR 2.14 (0.83-1.09) H 04/20/19 13:28
[2019-04-21] MEDS: ONDANSETRON 4 MG TABLET PO SCH ×3 (07:11→21:50)
[2019-04-21 07:23] LABS: ALBUMIN 2.1 g/dl (3.4-5.0); ALK PHOS 83 U/L (45-117); ANION GAP 13 MMOL/L (8-16); BILIRUBIN,TOTAL 2.4 mg/dL (0.2-1); BLOOD UREA NITROGEN 93.3 mg/dL (7-18); CHLORIDE 99 mmol/L (98-107); CO2 18 mmol/L (21-32); CREATININE 5.3 mg/dL (0.55-1.3); GLUCOSE,RANDOM 125 mg/dL (74-106); MAGNESIUM 1.8 mg/dL (1.8-2.4); POTASSIUM 3.8 mmol/L (3.5-5.1); SGOT/AST 51 U/L (15-37); SGPT/ALT 23 U/L (13-61); SODIUM 130 mmol/L (136-145); TOT PROT 4.6 g/dl (6.4-8.2)
[2019-04-21] MEDS: PANTOPRAZOLE 40 MG TABLET (FP) PO SCH (09:39)
[2019-04-21] MEDS: APIXABAN 2.5 MG TABLET PO SCH ×2 (09:39→21:33)
[2019-04-21] MEDS: RIFAXIMIN 550 MG TABLET (UD) PO SCH ×2 (09:39→21:33)
[2019-04-21] MEDS: MUPIROCIN 2% TOPICAL OINTMENT FOR DECOLONIZATION NS SCH ×2 (09:40→21:32)
[2019-04-21] MEDS ORDERED: MIDODRINE HCL 5 MG TABLET PO SCH (10:00)
[2019-04-21] MEDS ORDERED: metoPROLOL SUCCINATE 25 MG TAB.SR.24H (FP) PO SCH (10:00)
--- NOTE | 2019-04-21 10:12 | CON.NEP ---
Consult Consult Specialty:: nephrology Reason for Consultation:: david - History of Present Illness History of Present Illness: Asked to see this 68 year old lady for DAVID. Her history includes HCV cirrhosis , dementia/hepatic encephalopathy, portal hypertension with ascites, DVT on Eliquis, chronic UTIs. She presented to the ED with SOB and LE edema. She was found to be hypoglycemic and hypotensive. She was referred from PMD. She cant contribute to the history. Denies difficulty urianting or history of kidney disease. She has ecchymoses and petechiae diffusely. 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 no documented history of tb or hepatitis - Alcohol/Substance Use Hx Alcohol Use: No History of Substance Use: reports: None - Smoking History Smoking history: Never smoked Have you smoked in the past 12 months: No - Social History Usual Living Arrangement: With Significant Other ADL: Family Assistance History of Recent Travel: No Home Medications - Allergies Allergies/Adverse Reactions: Allergies Allergy/AdvReac Type Severity Reaction Status Date / Time No Known Allergies Allergy Verified 01/08/19 13:25 - Home Medications Home Medications: Ambulatory Orders Furosemide [Lasix] 40 mg PO BID 01/08/19 Ergocalciferol [Vitamin D2] 50,000 unit PO Q7D@1000 #4 capsule 01/14/19 Metoprolol Succinate [Toprol XL -] 25 mg PO DAILY #30 tab.sr.24h 01/14/19 Apixaban [Eliquis] 2.5 mg PO BID 04/20/19 Ondansetron [Zofran -] 4 mg PO TID 04/20/19 Spironolactone 25 mg PO BID 04/20/19 Family Medical History Family History: Unable to Obtain Review of Systems Unable to obtain ROS, reason: dementia/encephalopathy - Review of Systems Genitourinary: reports: No Symptoms Nephrology Consult - Height Height: 5 ft 4 in - Weight Weight: 162 lb 3.2 oz - BMI Body Mass Index (BMI): 27.8 - Lab Results CBC,BMP: CBC, BMP 04/21/19 05:55 04/21/19 05:55 Anion Gap: Anion Gap Anion Gap 13 MMOL/L (8-16) 04/21/19 05:55 - Imaging Chest X-ray: Report Reviewed - Physical Examination Vital Signs: Vital Signs Temperature 97.6 F 04/21/19 09:52 Pulse Rate 63 04/21/19 08:00 Respiratory Rate 14 04/21/19 09:52 Blood Pressure 85/48 L 04/21/19 09:52 O2 Sat by Pulse Oximetry (%) 97 04/21/19 08:27 Constitutional: Yes: Well Nourished, No Distress Eyes: Yes: Conjunctiva Clear HENT: Yes: Atraumatic, Normocephalic Neck: Yes: Supple, Trachea Midline Cardiovascular: Yes: Regular Rate and Rhythm Respiratory: Yes: Regular, Diminished Gastrointestinal: Yes: Normal Bowel Sounds Musculoskeletal: Yes: WNL Edema: LLE: 2+, RLE: 2+ Integumentary: Yes: Petechiae, Skin Tear Neurological: Yes: Alert, Oriented Psychiatric: Yes: Alert Assessment/Plan IMPRESSION DAVID on CKD She has a high urine sodium which is inconsistent with HRS. She also has proteinuria and hematuria which are usually not seen with HRS Remains hypotensive May have a disease related to Hep c- MPGN, cryoglobulinemia etc ascites ammonia level is low hypervolemic hyponatremia PLAN continue efforts to keep BP above 90 prefer to keep on pressors as opposed to fluids since she already has edema and ascites midodrine can be increased agree with possible paracentesis to exclude SBP monitor renal function Has Hep C been treated? the abdominal sono makes no mention of the kidneys. So would order renal sono will need to be evaluated for hd if not improving sodium of 130 is acceptable in a cirrhotic no attempt to raise it recommended MV
--- NOTE | 2019-04-21 10:44 | PN ---
Progress Note (short form) - Note Progress Note: ID consult dictated imp/reccd 68 yo female admitted form home- history of HCV cirrhosis admitted with SOB and LE edema noted to be in renal failure with leukocytosis and lactic acidosis ultrasound in Ed notable for liver cirrhosis, splenomegaly and ascities she c/o abdominal pain received vancomycin and zosyn in Ed minimal urine output overnight paracentesis not done in ED due to elevated INR last night I did not received a phone call about this patient last night sepsis renal failure cirrhosis recent DVT coagulopathy thrombocytopenia r/o SBP- ?paracentesis- will defer to GI timing of procedure-geiven coagulopathy and thrombocytopenia UTI needs renal us to r/o obstruction continue zosyn adjusted for renal failure check vancomycin trough overall prognosis is guarded Problem List - Problems (1) Sepsis Code(s): A41.9 - SEPSIS, UNSPECIFIED ORGANISM (2) Acute renal failure Code(s): N17.9 - ACUTE KIDNEY FAILURE, UNSPECIFIED (3) Liver cirrhosis Code(s): K74.60 - UNSPECIFIED CIRRHOSIS OF LIVER (4) DVT (deep venous thrombosis) Code(s): I82.409 - ACUTE EMBOLISM AND THOMBOS UNSP DEEP VN UNSP LOWER EXTREMITY (5) Coagulopathy Code(s): D68.9 - COAGULATION DEFECT, UNSPECIFIED (6) Thrombocytopenia Code(s): D69.6 - THROMBOCYTOPENIA, UNSPECIFIED
[2019-04-21] MEDS ORDERED: DEXTROSE 5%-WATER - 50 ML IVPB ONE ×2 (11:19→17:14)
[2019-04-21] MEDS ORDERED: PIPERACILLIN/TAZOBACTAM 2.25 GM VIAL IVPB ONE ×2 (11:19→17:14)
[2019-04-21] MEDS: PIPERACILLIN/TAZOB 2.25 GM 2.25 GM in DEXTROSE 5%-WATER - 50 ML IVPB SCH ×2 (11:24→17:16)
--- NOTE | 2019-04-21 13:22 | PN ---
Progress Note (short form) - Note Progress Note: PULMONARY/CCM PROGRESS NOTE: Pt seen and examined in the ICU. Awake and oriented x1. HD stable. Maintaining MAP>50 off pressors. In NAD. Active Medications Albuterol Sulfate (Ventolin 0.083% Nebulizer Soln -) 1 amp NEB Q6H PRN PRN Reason: SHORT OF BREATH/WHEEZING Last Admin: 04/21/19 03:40 Dose: 1 amp Apixaban (Eliquis -) 2.5 mg PO BID RADHA Last Admin: 04/21/19 09:39 Dose: 2.5 mg Chlorhexidine Gluconate (Hibiclens For Decolonization -) 1 applic TP HS RADHA Last Admin: 04/20/19 22:03 Dose: 1 applic Ergocalciferol (Drisdol -) 50,000 unit PO Q7D@1000 RADHA Furosemide (Lasix -) 40 mg PO BIDLASIX RADAH Norepinephrine Bitartrate 4, (000 mcg/ Dextrose) 500 mls @ 37.5 mls/hr IV TITR RADHA; Protocol Last Admin: 04/20/19 20:10 Dose: Not Given Dextrose/Sodium Chloride (D5-Ns -) 1,000 mls @ 75 mls/hr IV ASDIR RADHA Last Admin: 04/20/19 22:02 Dose: 75 mls/hr Piperacillin Sod/Tazobactam (Sod 2.25 gm/ Dextrose) 50 mls @ 100 mls/hr IVPB Q8H-IV RADHA; Protocol Last Admin: 04/21/19 11:24 Dose: 100 mls/hr Midodrine (Proamatine -) 5 mg PO TID-MID RADHA Last Admin: 04/21/19 09:39 Dose: 5 mg Morphine Sulfate (Morphine Sulfate) 2 mg IVPUSH Q4H PRN PRN Reason: PAIN LEVEL 1-5 Last Admin: 04/21/19 05:30 Dose: 2 mg Mupirocin (Bactroban Ointment (For Decolonization) -) 1 applic NS BID RADHA Stop: 04/25/19 21:59 Last Admin: 04/21/19 09:40 Dose: 1 applic Ondansetron HCl (Zofran -) 4 mg PO TID RADHA Last Admin: 04/21/19 07:11 Dose: 4 mg Pantoprazole Sodium (Protonix -) 40 mg PO DAILY RADHA Last Admin: 04/21/19 09:39 Dose: 40 mg Rifaximin (Xifaxan -) 550 mg PO BID [facility] Last Admin: 04/21/19 09:39 Dose: 550 mg Vital Signs Temperature 98.6 F 04/21/19 12:27 Pulse Rate 68 04/21/19 11:00 Respiratory Rate 14 04/21/19 12:27 Blood Pressure 95/64 04/21/19 12:27 O2 Sat by Pulse Oximetry (%) 97 04/21/19 08:27 Intake & Output 04/18/19 04/19/19 04/20/19 04/21/19 23:59 23:59 23:59 22:59 Intake Total 500 675 Output Total 20 100 Balance 480 575 Weight 72.121 kg 73.573 kg EXAM: neuro: oriented to person, TENORIO HEENT: icteric sclera, reactive Lungs: diminished; dry cough Heart: RRR Abd: dense, distended, fluid wave Ext: LE edema, warm CBC, BMP 04/21/19 05:55 04/21/19 05:55 ASSESSMENT: HCV Cirrhosis UTI Septic shock DAVID Lactic acidosis Hypoglycemia DVT Thrombocytopenia Ascites PLAN: -Cont Abx per ID -Follow up cultures -Gentle hydration - Albumin given -Swallow eval for diet -MAP >50 -Phenylephrine or Vaso if needed -AC for DVT -GI PPx while on AC Patient is critically Ill Julisa Delarosa, LANDYP Pulm/Critical Care PANEL MONITOR Additional CC's: Aly Valenzuela
[2019-04-21] MEDS ORDERED: PHENYLEPHRINE HCL 10,000 MCG in DEXTROSE 5%-WATER - 499 ML IV SCH (13:30)
[2019-04-21] MEDS: DEXTROSE 5%-NORMAL SALINE 1,000 ML IV SCH (13:45)
[2019-04-21] MEDS: MIDODRINE HCL 5 MG TABLET PO SCH ×2 (13:49→18:27)
--- NOTE | 2019-04-21 14:22 | PN ---
Progress Note, Physician Chief Complaint: PATIENT IN BED CONFUSED EVENTS AND NOTES REVIEWED - Current Medication List Current Medications: Active Medications Albuterol Sulfate (Ventolin 0.083% Nebulizer Soln -) 1 amp NEB Q6H PRN PRN Reason: SHORT OF BREATH/WHEEZING Last Admin: 04/21/19 03:40 Dose: 1 amp Apixaban (Eliquis -) 2.5 mg PO BID [facility] Last Admin: 04/21/19 09:39 Dose: 2.5 mg Chlorhexidine Gluconate (Hibiclens For Decolonization -) 1 applic TP HS RADHA Last Admin: 04/20/19 22:03 Dose: 1 applic Ergocalciferol (Drisdol -) 50,000 unit PO Q7D@1000 RADHA Furosemide (Lasix -) 40 mg PO BIDLASIX RADHA Piperacillin Sod/Tazobactam (Sod 2.25 gm/ Dextrose) 50 mls @ 100 mls/hr IVPB Q8H-IV RADHA; Protocol Last Admin: 04/21/19 11:24 Dose: 100 mls/hr Phenylephrine HCl 10,000 mcg/ (Dextrose) 500 mls @ 150 mls/hr IV TITR RADHA; Protocol Dextrose/Sodium Chloride (D5-Ns -) 1,000 mls @ 42 mls/hr IV ASDIR RADHA Midodrine (Proamatine -) 10 mg PO TID-MID [facility] Last Admin: 04/21/19 13:49 Dose: 10 mg Morphine Sulfate (Morphine Sulfate) 2 mg IVPUSH Q4H PRN PRN Reason: PAIN LEVEL 1-5 Last Admin: 04/21/19 05:30 Dose: 2 mg Mupirocin (Bactroban Ointment (For Decolonization) -) 1 applic NS BID [facility] Stop: 04/25/19 21:59 Last Admin: 04/21/19 09:40 Dose: 1 applic Ondansetron HCl (Zofran -) 4 mg PO TID [facility] Last Admin: 04/21/19 13:51 Dose: 4 mg Pantoprazole Sodium (Protonix -) 40 mg PO DAILY [facility] Last Admin: 04/21/19 09:39 Dose: 40 mg Rifaximin (Xifaxan -) 550 mg PO BID [facility] Last Admin: 04/21/19 09:39 Dose: 550 mg - Objective Vital Signs: Vital Signs Temperature 98.6 F 04/21/19 12:27 Pulse Rate 68 04/21/19 11:00 Respiratory Rate 14 04/21/19 12:27 Blood Pressure 95/64 04/21/19 12:27 O2 Sat by Pulse Oximetry (%) 97 04/21/19 08:27 Constitutional: Yes: Moderate Distress Cardiovascular: Yes: Tachycardia Respiratory: Yes: Diminished, On Nasal O2 Gastrointestinal: Yes: Soft, Abdomen, Obese, Other Genitourinary: Yes: Laguerre Present Musculoskeletal: Yes: Muscle Weakness Edema: No Neurological: Yes: Confusion, Weakness Psychiatric: Yes: Other Labs: CBC, BMP 04/21/19 05:55 04/21/19 05:55 INR, PTT INR 2.14 (0.83-1.09) H 04/20/19 13:28 Problem List - Problems (1) CKD (chronic kidney disease) Code(s): N18.9 - CHRONIC KIDNEY DISEASE, UNSPECIFIED (2) Sepsis Code(s): A41.9 - SEPSIS, UNSPECIFIED ORGANISM (3) Acute cholecystitis Code(s): K81.0 - ACUTE CHOLECYSTITIS Assessment/Plan IV ABX PER ID MONITOR LABS DVT PROPHYLAXIS ON PT EVAL OOB TO CHAIR BACK TO SNF WHEN TREATMENT COMPLETE BP SUPPORT ON PRESSORS IVF
--- NOTE | 2019-04-21 15:21 | CONS ---
DATE OF CONSULTATION: DATE OF DICTATION: 04/21/2019 This is a 68-year-old woman, who lives at home with her family. She has a history of hepatitis C and cirrhosis. She came to the emergency room with her with worsening lower extremity edema and shortness of breath. Per the ER note, she was recently diagnosed with a DVT and started on Eliquis. 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 She apparently has been sustaining falls at home as well. Patient also complains of abdominal pain on exam. She was noted in the ER to have ascites. Paracentesis was postponed due to her INR of 2 and low platelet count. She was noted to have a leukocytosis, pyuria, and lactic acidosis with acute renal failure and was thus admitted to the ICU. She is currently receiving IV fluids. She is not on any blood pressure support. She is currently awake. She is oriented to person and place. She complains, on exam, of abdominal pain. Her past medical history is notable for a history of dementia, hypertension. She has a heart murmur. She has a history of liver cirrhosis, hepatitis C, hypertension, anxiety. She has hearing loss and has a hearing aid. Surgical history is not known. Per the , she had a fall at home. She did not hit her head. SOCIAL HISTORY: She lives with her . There is no history of smoking or substance use. She has no known drug allergies. Her medications as an outpatient include Eliquis, Zofran, spironolactone, metoprolol, vitamin D, and Lasix. REVIEW OF SYSTEMS: She reports weakness, lower extremity swelling. She has multiple bruises. PHYSICAL EXAMINATION: Vital Signs: Temperature is 97.6. She was hypothermic on admission, as low as 94.8, with a blood pressure of 85/48, respiratory rate of 14. She weighs 73 kg. HEENT: Normocephalic. Her eyes are anicteric. She has no thrush. Skin: She has multiple ecchymoses throughout her body, on her arms as well as her knees. It looks like she has fallen. Heart: She has a loud 2 to 3/6 holosystolic murmur heard throughout the precordium. Lungs: Diminished breath sounds at the bases. Abdomen: Soft. She has some diffuse discomfort on palpation. She has ascites. She has no rebound. Extremities: Notable for 2 to 3+ pitting edema. Genitourinary: She has a Laguerre in place with minimal urine. Her white count on admission was 20,000, this morning is 12. Hemoglobin is 9.2, platelets 60,000. Her INR is 2.14. BUN 93 and creatinine 5.3. Her lactic acid was 4.9 on admission, is now 2.4. She has a total bilirubin of 2.4. Ammonia is less than 11. Urinalysis has 3+ leukocytes with 2000 white cells. She is hepatitis C antibody positive. This morning, blood cultures are pending and urine culture is growing lactose-fermenting gram-negative bacillus. Ultrasound done in the ER is notable for liver cirrhosis, splenomegaly, and ascites. She had a CAT scan of her head done in the ER as well, given the history of falls, that shows no acute intracranial pathology and as well there was no cervical fracture noted. She had a chest x-ray done as well in the emergency room that is notable for some mild congestive changes and cardiomegaly. In summary, this is a 68-year-old woman admitted with sepsis, renal failure, and liver cirrhosis, recent DVT, possible SBP. Would defer paracentesis to GI for timing of the procedure, given her coagulopathy and thrombocytopenia. As well, she has evidence of UTI. She needs a renal ultrasound to rule out obstruction. Would continue Zosyn, adjusted for renal failure, and followup on her vancomycin level. Further recommendations to follow. Patient's overall prognosis is guarded. MARISOL GARCIA M.D. JOSSELYN/[id number]
[2019-04-21] MEDS ORDERED: PT OWN MED DRAWER 7, Y5N ONE ×2 (17:14→21:34)
--- NOTE | 2019-04-21 19:49 | CONS ---
DATE OF CONSULTATION: DATE OF DICTATION: 04/21/2019 HISTORY OF PRESENT ILLNESS: The patient is a 68-year-old female with a past medical history of dementia, chronic UTI, hypertension, hepatitis C cirrhosis, not treated in the past, also with CHF, who is known to me from the outpatient facility, for which she has been seen for lower extremity edema and refused to go to the emergency room at the time. She also had an outpatient Doppler ultrasound, which revealed IVC thrombus, and was started low-dose anticoagulation. Apparently she had fallen at home a couple of times and was brought to the hospital after she was experiencing worsening shortness of breath. Patient at this time is more alert, denies any abdominal pain, nausea, vomiting, hematemesis, melena, hematochezia. She has not had a recent endoscopic examination. PAST MEDICAL AND SURGICAL HISTORY: As listed in the HPI. ALLERGIES: No known drug allergies. SOCIAL HISTORY: No smoking or drinking. Lives with her spouse. FAMILY HISTORY: No history of GI or gynecological malignancy. Home medications reviewed and include Lasix 40 mg p.o. b.i.d., vitamin D, Toprol, Eliquis, spironolactone 25 mg p.o. b.i.d., lactulose 30 mL q.i.d. Review of systems as per the HPI. PHYSICAL EXAMINATION: Vital Signs: Her T-max today is 100.5, currently 99. Pulse 80. Blood pressure 110/40. Respiratory rate 12. Oxygen saturation 92%. General: No acute distress, awake and alert. Cardiovascular: S1, S2, regular rate and rhythm. Lungs: Clear anteriorly to auscultation bilaterally. Abdomen: Soft and nontender with some flank dullness. Extremities: Positive for bilateral lower extremity edema. Neurological: Uncooperative for testing asterixis. She is awake and alert, does not respond to questions regarding place, time. LABORATORY DATA: White blood cell count on admission 20, currently is 12. Hemoglobin 9.2 and hematocrit 26, it was hemoglobin 12 and hematocrit 37. Platelet count 60, INR 2.1, sodium 130, potassium 3.8, BUN 93, creatinine 5, glucose 125, lactic acid 2.4, total bilirubin 2.4, AST 51, ALT 23, alkaline phosphatase 83. Urine culture is positive for lactose fermenting, negative bacilli. Blood cultures are so far negative. She had a head CT, which revealed no significant change or acute intracranial pathology. IMPRESSION: Decompensated hepatitis C cirrhosis with ascites, acute kidney injury, likely hepatorenal with underlying urinary tract infection as the etiology of her current encephalopathy. RECOMMENDATION: Follow up cultures. Continue broad-spectrum antibiotics. Pathology consultation. Urine sodium and creatinine. Would likely benefit from midodrine. Continue lactulose 30 mL q.i.d. or rifaximin 550 mg p.o. b.i.d. Follow up renal ultrasound. Continue anticoagulation. Avoid NSAIDs. She can be started on a 2 g sodium soft diet. Would also obtain an abdominal ultrasound. DO JANEEN DELGADILLO/[id number]
[2019-04-21] MEDS: CHLORHEXIDINE GLUCONATE 4% CLEANSER FOR DECOLONIZATION TP SCH (21:33)
[2019-04-22] MEDS: PIPERACILLIN/TAZOB 2.25 GM 2.25 GM in DEXTROSE 5%-WATER - 50 ML IVPB SCH ×2 (02:55→09:11)
[2019-04-22] MEDS ORDERED: PIPERACILLIN/TAZOBACTAM 2.25 GM VIAL IVPB ONE ×2 (03:52→09:03)
[2019-04-22] MEDS ORDERED: DEXTROSE 5%-WATER - 50 ML IVPB ONE ×2 (03:52→09:03)
[2019-04-22] MEDS: ONDANSETRON 4 MG TABLET PO SCH ×3 (05:52→21:57)
[2019-04-22] MEDS: MORPHINE SULFATE 2 MG/ML VIAL IVPUSH PRN ×2 (05:55→19:42)
[2019-04-22 06:42] LABS: INR 3.45 (0.83-1.09)
[2019-04-22 06:53] LABS: BASO % 0.2 % (0-2.0); EOS % 0.4 % (0-4.5); HEMATOCRIT 27.8 % (32.4-45.2); HEMOGLOBIN 9.5 GM/dL (10.7-15.3); LYMPH % 8.5 % (8-40); MCH 30.9 pg (25.7-33.7); MCHC 34.1 g/dl (32.0-36.0); MEAN CELL VOLUME 90.7 fl (80-96); MEAN PLT VOLUME 10.3 fl (7.5-11.1); MONO % 7.2 % (3.8-10.2); NEUT % 83.7 % (42.8-82.8); PLATELET COUNT 79 K/MM3 (134-434); RBC 3.07 M/mm3 (3.60-5.2); RDW 19.2 % (11.6-15.6)
[2019-04-22 07:00] LABS: PROTHROMBIN TIME (PATIENT) > 230.00 SEC (9.7-13.0)
[2019-04-22 07:20] LABS: ALBUMIN 1.8 g/dl (3.4-5.0); BILIRUBIN,TOTAL 2.4 mg/dL (0.2-1); BLOOD UREA NITROGEN 96.2 mg/dL (7-18); CALCIUM 7.9 mg/dL (8.5-10.1); CREATININE 5.5 mg/dL (0.55-1.3); POTASSIUM 4.1 mmol/L (3.5-5.1); TOT PROT 4.4 g/dl (6.4-8.2)
[2019-04-22] MEDS: MUPIROCIN 2% TOPICAL OINTMENT FOR DECOLONIZATION NS SCH ×2 (09:00→21:57)
[2019-04-22] MEDS ORDERED: PHYTONADIONE 10 MG/1 ML AMP IVPB ONE (09:19)
--- NOTE | 2019-04-22 09:41 | PN ---
Progress Note (short form) - Note Progress Note: alert, c/o abdominal pain Vital Signs Period Temp Pulse Resp BP Sys/Bolaños Pulse Ox Last 24 Hr 95.6 F-100.5 F 56-893 05-10 79-120/38-64 97 cor-rrr lungs decreased bs at bases abd firm, tender to palpation ext multiple ecchymoses CBC, BMP 04/22/19 05:55 04/22/19 05:55 Microbiology 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 Coli Esbl Paralegal 04/20/19 13:28 Blood - Peripheral Venous Blood Culture - Preliminary NO GROWTH OBTAINED AFTER 24 HOURS, INCUBATION TO CONTINUE FOR 4 DAYS. 04/20/19 13:28 Blood - Peripheral Venous Blood Culture - Preliminary NO GROWTH OBTAINED AFTER 24 HOURS, INCUBATION TO CONTINUE FOR 4 DAYS. 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
[2019-04-22] MEDS: MIDODRINE HCL 5 MG TABLET PO SCH ×3 (10:03→18:12)
[2019-04-22] MEDS: PANTOPRAZOLE 40 MG TABLET (FP) PO SCH (10:07)
[2019-04-22] MEDS: RIFAXIMIN 550 MG TABLET (UD) PO SCH ×2 (10:08→21:57)
--- NOTE | 2019-04-22 10:24 | EKG ---
Test Reason : Blood Pressure : / mmHG Vent. Rate : 100 BPM Atrial Rate : 100 BPM P-R Int : 134 ms QRS Dur : 074 ms QT Int : 360 ms P-R-T Axes : 038 012 033 degrees QTc Int : 464 ms NORMAL SINUS RHYTHM LOW VOLTAGE QRS BORDERLINE ECG WHEN COMPARED WITH ECG OF 08-JAN-2019 15:21, NO SIGNIFICANT CHANGE WAS FOUND Confirmed by KERRY ARTHUR MD ([id number]) on 04/22/2019 10:24:31 AM Referred By: Confirmed By:KERRY ARTHUR MD
--- NOTE | 2019-04-22 10:31 | CONSULT ---
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 Cardiovascular: Yes: HTN, Murmur Gastrointestinal: Yes: Other (cirrhosis) Hepatobiliary: Yes: Cirrhosis, Hepatitis C Infectious Disease: Yes: Other (hep c) Psych: Yes: Anxiety, Other ENT: Yes: Other (hearing loss--uses hearing aides) - Smoking History Smoking history: Never smoked Have you smoked in the past 12 months: No - Alcohol/Substance Use Hx Alcohol Use: No History of Substance Use: reports: None - Social History ADL: Family Assistance History of Recent Travel: No History - Admission Reason For Visit: URINARY TRACT INFECTION, HYPOXEMIA, HEPATIC CIRRHO - Hearing Hearing: Impaired, Left Ear Hearing Aide: Yes With Patient: Yes Speech Evaluation - Communication Primary Language: GREEK Communication: Yes: Simple Responses Oral Expression Ability: Yes: Mild Impairment - Speech Production Dysarthria: Yes: Flaccid Apraxia: No Able to Make Needs Known: Yes: Moderately Impaired Intelligibility: Yes: WNL - Speech Characteristics Voice Loudness: Limited Variation Voice Pitch: Yes: Limited Variation Voice Phonatory-based Quality: Yes: Breathy Speech Pattern: Impaired Articulation: Yes: Precise Rate of Speech: Intact Voice, Other Observations: Yes: Progressively Weak Voice Voice Comment: Chart review report vocal fold paralysis left side - Language/Auditory Comprehension Follows: Yes: 1 Stage Simple Commands Observation: Able to respond to yes/no queries: Yes, Yes/No Confusion: Yes, Comprehends Conversational Speech: Yes, Benefits from Slow Speech: Yes, Benefits from Repetiton: Yes, Benefits from Increased Volume of Speech: No - Language/Verbal Expression Able to Respond to Simple Queries: Yes: WNL Able to Communicate Wants and Needs: Yes: Mildly Impaired Functional Communication Status: Yes: WNL Aware of Errors: No Attempts to Correct Errors: No Use of Gestures: Yes Written Expression: Not examined Oral Expression: simple responses Reading Comprehension: Not examined Calculations: Not examined Attention: Yes: Intact - Memory/Perception residential Memory: Yes: Moderately Impaired Short Term Memory: Yes: Mildly Impaired - Swallow Evaluation/Bedside Assessment Current Nutritional Intake: Dysphagia Pureed, Thin Liquids Oral Secretions: Yes: WFL Tracheostomy Present: No Patient on Ventilator: No Dentition: Yes: Edentulous, Missing Teeth Facial Symmetry at Rest: Symmetrical Facial Symmetry on Retraction: Symmetrical Facial Movement: Controlled Sensation: Normal Facial Comment: Pt presents with suboptimal dentition for adequate mastication. Jaw Position: Closed at Rest Against Resistance Opening: Normal Against Resistance Closing: Normal Pucker Lips: Normal Lips, Comment: features are within functional limits for speech and swallowing purposes Lingual Movement: Normal Lingual Speed of Movement: Normal Lingual Movement Strgth Against Opposition: Normal Lingual Movement Characteristics: Normal Lingual Comment: features are within functional limits for speech and swallowing purposes Soft Palate Description: Normal Color Hard Palate Description: Normal Color Gag Reflex: Weak Bite Reflex: Present Velopharyngeal Movement: Normal Laryngeal Elevation: WFL Laryngeal Movement: Able to Palpate Needs Assistance: Yes Rate of Intake: WFL Bolus Size: WFL Labial Seal: WFL Chewing: WFL Oral Prep Time: WFL A-P Transit: WFL Timing of Swallow: WFL Odynophagia: Pharyngeal Coughing/Throat Clear: Yes (with thin liquids ) Change in Voice: No Other Findings/Remarks: 68 yo female seen at bedside for swallow eval to r/o dysphagia Pt is minimally verbal, A&Ox1, cooperative with pmhx of sepsis, cirrhosis, renal failure, and vocal fold paralysis (left side). Vocal quality is impaired characterized as breathy, hoarsen, with reduced intensity and pitch. Pt is edentulous. Pt presents with suboptimal dentition for adequate mastication. Current diet: Purees with thin liquids. Pt given PO trials of pureed with total assistance revealed, adequate bolus formation and A P transport with a timely pharyngeal swallow (1-2 second average). No change in voicing or respiration after the swallow. Pt given po trials of ice chips via spoon, thin, and thicken liquids via cup with assistance revealed reduced acceptance, reduced labial containment and bolus control. Pharyngeal swallows are WNL. Coughing observed with thin liquids to suggest possible aspiration. No cough with thicken liquids at this time. Recommendations - Speech Evaluation, Impression/Plan Impression: Pt present with mild to moderate s/s of dysphagia and positive s/s of aspiration-like behaviors with thin liquids. Speech and language skills are reduced but functional for her environment. Fci Goals: Tolerate the least restrictive solid and liquid consistencies without s/s of penetration / aspiration. Short Term Goals: Consume purees with thicken liquids at bedside without s/s of penetration and /or aspiration at this time. - Dysphagia Impressions/Plan Swallowing Skills: Impaired Dysphagia Impressions: Moderate Impairment, Risk of Aspiration (with thin liquids), Suspect Aspiration (with thin liquids) *Silent aspiration: cannot be R/O at bedside Dysphagia Treatment Plan: Small Bites, Safe Rate, 1/2 tsp. at a time, Elevate HOB during feed, Other (monitor nutritional intake and pulmonary status.) Dysphagia Evaluation Summary: Continue po intake of puree solids and downgrade to honey thicken liquids as tolerated. Observe standard aspiration precautions. Provide oral care before and after meal meals. Medication can be given crushed with applesauce. Results given verbally to discharge coordinator and PCP via chart. 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 - Recommendations Diet Consistency: Dysphagia Pureed Medication Administration: Crushed with applesauce Liquids: Honey Thick
--- NOTE | 2019-04-22 11:17 | PN ---
Progress Note, Physician Chief Complaint: patient seen and examined complaining of abdominal pain patient responds to her name able to verbalize regarding abdominal pain to get FFP and vitamin K today - Current Medication List Current Medications: Active Medications Albuterol Sulfate (Ventolin 0.083% Nebulizer Soln -) 1 amp NEB Q6H PRN PRN Reason: SHORT OF BREATH/WHEEZING Last Admin: 04/21/19 03:40 Dose: 1 amp Chlorhexidine Gluconate (Hibiclens For Decolonization -) 1 applic TP HS RADHA Last Admin: 04/21/19 21:33 Dose: 1 applic Ergocalciferol (Drisdol -) 50,000 unit PO Q7D@1000 [facility] Furosemide (Lasix -) 40 mg PO BIDLASIX [facility] Phenylephrine HCl 10,000 mcg/ (Dextrose) 500 mls @ 150 mls/hr IV TITR RADHA; Protocol Dextrose/Sodium Chloride (D5-Ns -) 1,000 mls @ 42 mls/hr IV ASDIR RADHA Last Admin: 04/21/19 13:45 Dose: 42 mls/hr Ertapenem 0.5 gm/ Sodium (Chloride) 50 mls @ 100 mls/hr IVPB DAILY [facility] Midodrine (Proamatine -) 10 mg PO TID-MID [facility] Last Admin: 04/22/19 10:03 Dose: 10 mg Morphine Sulfate (Morphine Sulfate) 2 mg IVPUSH Q4H PRN PRN Reason: PAIN LEVEL 1-5 Last Admin: 04/22/19 05:55 Dose: 2 mg Mupirocin (Bactroban Ointment (For Decolonization) -) 1 applic NS BID [facility] Stop: 04/25/19 21:59 Last Admin: 04/21/19 21:32 Dose: 1 applic Ondansetron HCl (Zofran -) 4 mg PO TID [facility] Last Admin: 04/22/19 05:52 Dose: 4 mg Pantoprazole Sodium (Protonix -) 40 mg PO DAILY [facility] Last Admin: 04/22/19 10:07 Dose: 40 mg Rifaximin (Xifaxan -) 550 mg PO BID [facility] Last Admin: 04/22/19 10:08 Dose: 550 mg - Objective Vital Signs: Vital Signs Temperature 97.2 F L 04/22/19 10:00 Pulse Rate 64 04/22/19 10:00 Respiratory Rate 14 04/22/19 10:00 Blood Pressure 94/61 04/22/19 10:00 O2 Sat by Pulse Oximetry (%) 97 04/21/19 20:22 Constitutional: Yes: Calm Eyes: Yes: Sclera Icterus Cardiovascular: Yes: Regular Rate and Rhythm, S1, S2 Respiratory: Yes: Diminished, Rhonchi Gastrointestinal: Yes: Ascites, Distention (prominent venous vasculature), Tenderness (to palpation) Extremities: Yes: Other (ecchymosis of arms and right knee) Neurological: Yes: Alert (responds to her name) Labs: CBC, BMP 04/22/19 05:55 04/22/19 05:55 INR, PTT INR 3.45 (0.83-1.09) H 04/22/19 05:55 Problem List - Problems (1) Sepsis Assessment/Plan: on ertrapenem Microbiology 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 Coli Esbl Logistics Team Leader keep MAP > 55-60- pressors phenylpephriine monitor urine output Code(s): A41.9 - SEPSIS, UNSPECIFIED ORGANISM (2) Acute renal failure Assessment/Plan: renal sono no hydronephrosis and no obstruction creatinine increased from 1.4 in last admission to 5.5 renal on board, monitor renal urine output keep MAP >55 possible HD Zev duffy is the HCP he is comming in today Code(s): N17.9 - ACUTE KIDNEY FAILURE, UNSPECIFIED (3) Coagulopathy Assessment/Plan: vitamin K and FFP secondary to cirrhosis Code(s): D68.9 - COAGULATION DEFECT, UNSPECIFIED (4) Liver cirrhosis Assessment/Plan: rifaximin possible paraqcentesis once coagulopathy improves Code(s): K74.60 - UNSPECIFIED CIRRHOSIS OF LIVER (5) Dysphagia Assessment/Plan: seen by swallow team dysphagia pureed with honey thick Code(s): R13.10 - DYSPHAGIA, UNSPECIFIED (6) Hyponatremia Assessment/Plan: hepato renal syndrome monitor sodium better today 132 Code(s): E87.1 - HYPO-OSMOLALITY AND HYPONATREMIA (7) DVT (deep venous thrombosis) Assessment/Plan: dc eliquis for now Code(s): I82.409 - ACUTE EMBOLISM AND THOMBOS UNSP DEEP VN UNSP LOWER EXTREMITY
--- NOTE | 2019-04-22 11:26 | PN ---
Teaching Attending Note Name of Resident: Kiley Roth ATTENDING PHYSICIAN STATEMENT I saw and evaluated the patient. I reviewed the resident's note and discussed the case with the resident. I agree with the resident's findings and plan as documented. SUBJECTIVE: Patient seen and examined in the ICU. Awake and interactive but confused. Cannot tell us where so is or why she is here. Denies CP or SOB. Non-specific abdominal discomfort. Worsening hemodynamics and coagulopathy noted. Intake & Output 04/20/19 04/21/19 04/21/19 04/22/19 00:59 00:59 23:59 23:59 Intake Total 674 Output Total 200 Balance 474 Weight 165 lb 3.2 oz Last Vital Signs Temp Pulse Resp BP Pulse Ox 97.2 F L 64 14 94/61 97 04/22/19 10:00 04/22/19 10:00 04/22/19 10:00 04/22/19 10:00 04/22/19 09:00 Active Medications Albuterol Sulfate (Ventolin 0.083% Nebulizer Soln -) 1 amp NEB Q6H PRN PRN Reason: SHORT OF BREATH/WHEEZING Last Admin: 04/21/19 03:40 Dose: 1 amp Chlorhexidine Gluconate (Hibiclens For Decolonization -) 1 applic TP HS RADHA Last Admin: 04/21/19 21:33 Dose: 1 applic Ergocalciferol (Drisdol -) 50,000 unit PO Q7D@1000 [facility] Furosemide (Lasix -) 40 mg PO BIDLASIX [facility] Phenylephrine HCl 10,000 mcg/ (Dextrose) 500 mls @ 150 mls/hr IV TITR [facility]; Protocol Dextrose/Sodium Chloride (D5-Ns -) 1,000 mls @ 42 mls/hr IV ASDIR RAD[facility] Last Admin: 04/21/19 13:45 Dose: 42 mls/hr Ertapenem 0.5 gm/ Sodium (Chloride) 50 mls @ 100 mls/hr IVPB DAILY [facility] Midodrine (Proamatine -) 10 mg PO TID-MID [facility] Last Admin: 04/22/19 10:03 Dose: 10 mg Morphine Sulfate (Morphine Sulfate) 2 mg IVPUSH Q4H PRN PRN Reason: PAIN LEVEL 1-5 Last Admin: 04/22/19 05:55 Dose: 2 mg Mupirocin (Bactroban Ointment (For Decolonization) -) 1 applic NS BID [facility] Stop: 04/25/19 21:59 Last Admin: 04/22/19 09:00 Dose: 1 applic Ondansetron HCl (Zofran -) 4 mg PO TID [facility] Last Admin: 04/22/19 05:52 Dose: 4 mg Pantoprazole Sodium (Protonix -) 40 mg PO DAILY [facility] Last Admin: 04/22/19 10:07 Dose: 40 mg Rifaximin (Xifaxan -) 550 mg PO BID [facility] Last Admin: 04/22/19 10:08 Dose: 550 mg HEENT: icteric sclera Lungs: diminished; dry cough Heart: RRR Abd: dense, distended, fluid wave Ext: LE edema, warm Neuro: awake and interactive, confused Laboratory Results - last 24 hr 04/21/19 04/22/19 04/22/19 16:50 04:02 05:55 WBC 12.0 H RBC 3.07 L Hgb 9.5 L Hct 27.8 L MCV 90.7 MCH 30.9 MCHC 34.1 RDW 19.2 H Plt Count 79 L D MPV 10.3 Absolute Neuts (auto) 10.1 H Neutrophils % 83.7 H Lymphocytes % 8.5 D Monocytes % 7.2 Eosinophils % 0.4 Basophils % 0.2 Nucleated RBC % 0 PT with INR INR Sodium Potassium Chloride Carbon Dioxide Anion Gap BUN Creatinine Est GFR (CKD-EPI)AfAm Est GFR (CKD-EPI)NonAf POC Glucometer 93 91 Random Glucose Lactic Acid Calcium Total Bilirubin AST ALT Alkaline Phosphatase Total Protein Albumin 04/22/19 04/22/19 04/22/19 05:55 05:55 06:03 WBC RBC Hgb Hct MCV MCH MCHC RDW Plt Count MPV Absolute Neuts (auto) Neutrophils % Lymphocytes % Monocytes % Eosinophils % Basophils % Nucleated RBC % PT with INR > 230.00 H INR 3.45 H Sodium 132 L Potassium 4.1 Chloride 101 Carbon Dioxide 20 L Anion Gap 12 BUN 96.2 H Creatinine 5.5 H Est GFR (CKD-EPI)AfAm 8.54 Est GFR (CKD-EPI)NonAf 7.36 POC Glucometer 95 Random Glucose 93 Lactic Acid Calcium 7.9 L Total Bilirubin 2.4 H AST 50 H ALT 24 Alkaline Phosphatase 86 Total Protein 4.4 L Albumin 1.8 L 11/04/19 09:08 WBC RBC Hgb Hct MCV MCH MCHC RDW Plt Count MPV Absolute Neuts (auto) Neutrophils % Lymphocytes % Monocytes % Eosinophils % Basophils % Nucleated RBC % PT with INR INR Sodium Potassium Chloride Carbon Dioxide Anion Gap BUN Creatinine Est GFR (CKD-EPI)AfAm Est GFR (CKD-EPI)NonAf POC Glucometer Random Glucose Lactic Acid 1.7 Calcium Total Bilirubin AST ALT Alkaline Phosphatase Total Protein Albumin ASSESSMENT: HCV Cirrhosis UTI Septic shock DAVID Lactic acidosis Hypoglycemia DVT Thrombocytopenia Ascites PLAN: -FFP and Vitamin K to correct coagulopathy -Will need central access and start Pressors for MAP < 65 -Measure CVP -Cont Abx per ID -Follow up cultures -Swallow eval for diet -GI PPx -Requires ICU monitoring for pressors and MOF Dr Valenzuela Critical care time spent in reviewing chart, evaluating patient and formulating plan - 36 minutes.
[2019-04-22] MEDS: ERTAPENEM SODIUM 0.5 GM in SODIUM CHLORIDE 50 ML IVPB SCH (11:34)
[2019-04-22] MEDS: APIXABAN 2.5 MG TABLET PO SCH (12:00)
--- NOTE | 2019-04-22 13:25 | PN ---
Progress Note (short form) - Note Progress Note: GI f/u Awake and alert but disoriented vague abdominal pain Vital Signs Temp 97.2 F L 04/22/19 10:00 Pulse 64 04/22/19 10:00 Resp 14 04/22/19 10:00 BP 94/61 04/22/19 10:00 Pulse Ox 97 04/22/19 09:00 NAD Mild icterus soft, mild distension, mild diffuse ttp CBC, BMP 04/22/19 05:55 04/22/19 05:55 Hepatic Panel Total Bilirubin 2.4 mg/dL (0.2-1) H 04/22/19 05:55 AST 50 U/L (15-37) H 04/22/19 05:55 ALT 24 U/L (13-61) 04/22/19 05:55 Alkaline Phosphatase 86 U/L (45-117) 04/22/19 05:55 Albumin 1.8 g/dl (3.4-5.0) L 04/22/19 05:55 INR, PTT INR 3.45 (0.83-1.09) H 04/22/19 05:55 68F with decompensated HCV cirrhosis with lethargy/falls; hepatorenal syndrome. Worsening coagulopathy. - correct coagulopathy - follow up cx, so far negative - hold diuretics - continue abx - continue midodrine; can add octreotide if HRS confirmed - check urine sodium - continue lactulose/rifaximin; titrate to 3bm per day
--- NOTE | 2019-04-22 13:26 | PN ---
Progress Note, Physician History of Present Illness: Pt seen and examined at bedside. She is awake and appears comfortable. She denies shortness of breath. - Current Medication List Current Medications: Active Medications Albuterol Sulfate (Ventolin 0.083% Nebulizer Soln -) 1 amp NEB Q6H PRN PRN Reason: SHORT OF BREATH/WHEEZING Last Admin: 04/21/19 03:40 Dose: 1 amp Chlorhexidine Gluconate (Hibiclens For Decolonization -) 1 applic TP HS RADHA Last Admin: 04/21/19 21:33 Dose: 1 applic Ergocalciferol (Drisdol -) 50,000 unit PO Q7D@1000 [facility] Furosemide (Lasix -) 40 mg PO BIDLASIX RADHA Phenylephrine HCl 10,000 mcg/ (Dextrose) 500 mls @ 150 mls/hr IV TITR RADHA; Protocol Dextrose/Sodium Chloride (D5-Ns -) 1,000 mls @ 42 mls/hr IV ASDIR RADHA Last Admin: 04/21/19 13:45 Dose: 42 mls/hr Ertapenem 0.5 gm/ Sodium (Chloride) 50 mls @ 100 mls/hr IVPB DAILY [facility] Last Admin: 04/22/19 11:34 Dose: 100 mls/hr Midodrine (Proamatine -) 10 mg PO TID-MID RADHA Last Admin: 04/22/19 10:03 Dose: 10 mg Morphine Sulfate (Morphine Sulfate) 2 mg IVPUSH Q4H PRN PRN Reason: PAIN LEVEL 1-5 Last Admin: 04/22/19 05:55 Dose: 2 mg Mupirocin (Bactroban Ointment (For Decolonization) -) 1 applic NS BID RADHA Stop: 04/25/19 21:59 Last Admin: 04/22/19 09:00 Dose: 1 applic Ondansetron HCl (Zofran -) 4 mg PO TID RADHA Last Admin: 04/22/19 05:52 Dose: 4 mg Pantoprazole Sodium (Protonix -) 40 mg PO DAILY [facility] Last Admin: 04/22/19 10:07 Dose: 40 mg Rifaximin (Xifaxan -) 550 mg PO BID [facility]HA Last Admin: 04/22/19 10:08 Dose: 550 mg - Objective Vital Signs: Vital Signs Temperature 97.2 F L 04/22/19 10:00 Pulse Rate 64 04/22/19 10:00 Respiratory Rate 14 04/22/19 10:00 Blood Pressure 94/61 04/22/19 10:00 O2 Sat by Pulse Oximetry (%) 97 04/22/19 09:00 Constitutional: Yes: Calm Eyes: Yes: Conjunctiva Clear HENT: Yes: Atraumatic Cardiovascular: Yes: S1, S2 Respiratory: Yes: On Nasal O2 Gastrointestinal: Yes: Soft, Ascites Genitourinary: Yes: Laguerre Present Musculoskeletal: Yes: Muscle Weakness Edema: LLE: Trace, RLE: Trace Neurological: Yes: Oriented Psychiatric: Yes: Oriented Labs: CBC, BMP 04/22/19 05:55 04/22/19 05:55 INR, PTT INR 3.45 (0.83-1.09) H 04/22/19 05:55 Assessment/Plan Current Medications Generic Name Dose Route Start Last Admin Trade Name Freq PRN Reason Stop Dose Admin Albuterol Sulfate 1 amp 04/20/19 18:00 04/21/19 03:40 Ventolin 0.083% Nebulizer Soln - NEB 1 amp Q6H PRN Administration SHORT OF BREATH/WHEEZING Chlorhexidine Gluconate 1 applic 04/20/19 22:00 04/21/19 21:33 Hibiclens For Decolonization - TP 1 applic HS RADHA Administration Ergocalciferol 50,000 unit 04/27/19 10:00 Drisdol - PO Q7D@1000 RAD[facility] Furosemide 40 mg 04/21/19 06:00 Lasix - PO BIDLASIX RADHA Phenylephrine HCl 10,000 mcg/ 500 mls @ 150 mls/hr 04/21/19 13:30 Dextrose IV TITR RADHA Protocol 50 MCG/MIN Dextrose/Sodium Chloride 1,000 mls @ 42 mls/hr 04/21/19 13:51 04/21/19 13:45 D5-Ns - IV 42 mls/hr ASDIR RADHA Administration Ertapenem 0.5 gm/ Sodium 50 mls @ 100 mls/hr 04/22/19 10:00 04/22/19 11:34 Chloride IVPB 100 mls/hr DAILY RAD[facility] Administration Midodrine 10 mg 04/21/19 13:31 04/22/19 10:03 Proamatine - PO 10 mg TID-MID RAD[facility] Administration Morphine Sulfate 2 mg 04/21/19 05:24 04/22/19 05:55 Morphine Sulfate IVPUSH 2 mg Q4H PRN Administration PAIN LEVEL 1-5 Mupirocin 1 applic 04/20/19 22:00 04/22/19 09:00 Bactroban Ointment (For Decolonization) - NS 04/25/19 21:59 1 applic BID RADHA Administration Ondansetron HCl 4 mg 04/20/19 22:00 04/22/19 05:52 Zofran - PO 4 mg TID RADHA Administration Pantoprazole Sodium 40 mg 04/21/19 10:00 04/22/19 10:07 Protonix - PO 40 mg DAILY [facility] Administration Rifaximin 550 mg 04/20/19 22:00 04/22/19 10:08 Xifaxan - PO 550 mg BID RADHA Administration Laboratory Tests 04/20/19 04/22/19 04/22/19 13:28 05:55 05:55 WBC 12.0 H Hgb 9.5 L PT with INR > 230.00 H INR 3.45 H Sodium Creatinine Urine Protein 2+ H Urine Blood 3+ H 04/22/19 05:55 WBC Hgb PT with INR INR Sodium 132 L Creatinine 5.5 H Urine Protein Urine Blood Impression 1. DAVID 2. CKD 3. hep C cirrhosis 4. UTI 5. sepsis 6. ascites 7. hypervolemic hyponatremia 8. coagulopathy PLAN - follow renal nader - will order rest of serologies - avoid hypotension - renal ultrasound reviewed - discussed with family
--- NOTE | 2019-04-22 13:31 | PN ---
Physical Exam: SUBJECTIVE: Patient seen and examined at bedside. Patient unable to answer questions accurately due to dementia. No events overnight. Spoke with patient's and received consent for FFP and central line placement. OBJECTIVE: Vital Signs Period Temp Pulse Resp BP Sys/Bolaños Pulse Ox Last 24 Hr 95.6 F-100.5 F 56-893 11- 79-120/39-64 97-97 GENERAL: AAOx1 (self) HEAD: Normal with no signs of trauma. ENT: dry mucous membranes NECK: Trachea midline, supple. LUNGS: Breath sounds equal, clear to auscultation bilaterally, no wheezes, no crackles, no accessory muscle use. HEART: bradycardic, murmur noted, no rub or gallop ABDOMEN: caput medusa noted. Soft, nontender, nondistended, normoactive bowel sounds, no guarding, no rebound EXTREMITIES: 2+ non pitting edema of bilateral lower extremities. 2+ pulses, warm, well-perfused, no edema. NEUROLOGICAL: unable to assess Laboratory Results - last 24 hr 04/21/19 04/22/19 04/22/19 16:50 04:02 05:55 WBC 12.0 H RBC 3.07 L Hgb 9.5 L Hct 27.8 L MCV 90.7 MCH 30.9 MCHC 34.1 RDW 19.2 H Plt Count 79 L D MPV 10.3 Absolute Neuts (auto) 10.1 H Neutrophils % 83.7 H Lymphocytes % 8.5 D Monocytes % 7.2 Eosinophils % 0.4 Basophils % 0.2 Nucleated RBC % 0 PT with INR INR Sodium Potassium Chloride Carbon Dioxide Anion Gap BUN Creatinine Est GFR (CKD-EPI)AfAm Est GFR (CKD-EPI)NonAf POC Glucometer 93 91 Random Glucose Lactic Acid Calcium Total Bilirubin AST ALT Alkaline Phosphatase Total Protein Albumin Blood Type Antibody Screen 04/22/19 04/22/19 04/22/19 05:55 05:55 06:03 WBC RBC Hgb Hct MCV MCH MCHC RDW Plt Count MPV Absolute Neuts (auto) Neutrophils % Lymphocytes % Monocytes % Eosinophils % Basophils % Nucleated RBC % PT with INR > 230.00 H INR 3.45 H Sodium 132 L Potassium 4.1 Chloride 101 Carbon Dioxide 20 L Anion Gap 12 BUN 96.2 H Creatinine 5.5 H Est GFR (CKD-EPI)AfAm 8.54 Est GFR (CKD-EPI)NonAf 7.36 POC Glucometer 95 Random Glucose 93 Lactic Acid Calcium 7.9 L Total Bilirubin 2.4 H AST 50 H ALT 24 Alkaline Phosphatase 86 Total Protein 4.4 L Albumin 1.8 L Blood Type Antibody Screen 04/22/19 04/22/19 04/22/19 09:08 10:30 11:45 WBC RBC Hgb Hct MCV MCH MCHC RDW Plt Count MPV Absolute Neuts (auto) Neutrophils % Lymphocytes % Monocytes % Eosinophils % Basophils % Nucleated RBC % PT with INR INR Sodium Potassium Chloride Carbon Dioxide Anion Gap BUN Creatinine Est GFR (CKD-EPI)AfAm Est GFR (CKD-EPI)NonAf POC Glucometer 100 Random Glucose Lactic Acid 1.7 Calcium Total Bilirubin AST ALT Alkaline Phosphatase Total Protein Albumin Blood Type A POSITIVE Antibody Screen Negative Active Medications Generic Name Dose Route Start Last Admin Trade Name Freq PRN Reason Stop Dose Admin Albuterol Sulfate 1 amp 04/20/19 18:00 04/21/19 03:40 Ventolin 0.083% Nebulizer Soln - NEB 1 amp Q6H PRN Administration SHORT OF BREATH/WHEEZING Chlorhexidine Gluconate 1 applic 04/20/19 22:00 04/21/19 21:33 Hibiclens For Decolonization - TP 1 applic HS RADHA Administration Ergocalciferol 50,000 unit 04/27/19 10:00 Drisdol - PO Q7D@1000 RADHA Furosemide 40 mg 04/21/19 06:00 Lasix - PO BIDLASIX RADHA Phenylephrine HCl 10,000 mcg/ 500 mls @ 150 mls/hr 04/21/19 13:30 Dextrose IV TITR RADHA Protocol 50 MCG/MIN Dextrose/Sodium Chloride 1,000 mls @ 42 mls/hr 04/21/19 13:51 04/21/19 13:45 D5-Ns - IV 42 mls/hr ASDIR RADHA Administration Ertapenem 0.5 gm/ Sodium 50 mls @ 100 mls/hr 04/22/19 10:00 04/22/19 11:34 Chloride IVPB 100 mls/hr DAILY RADHA Administration Midodrine 10 mg 04/21/19 13:31 04/22/19 10:03 Proamatine - PO 10 mg TID-MID RADHA Administration Morphine Sulfate 2 mg 04/21/19 05:24 04/22/19 05:55 Morphine Sulfate IVPUSH 2 mg Q4H PRN Administration PAIN LEVEL 1-5 Mupirocin 1 applic 04/20/19 22:00 04/22/19 09:00 Bactroban Ointment (For Decolonization) - NS 04/25/19 21:59 1 applic BID RADHA Administration Ondansetron HCl 4 mg 04/20/19 22:00 04/22/19 05:52 Zofran - PO 4 mg TID RADHA Administration Pantoprazole Sodium 40 mg 04/21/19 10:00 04/22/19 10:07 Protonix - PO 40 mg DAILY RADHA Administration Rifaximin 550 mg 04/20/19 22:00 04/22/19 10:08 Xifaxan - PO 550 mg BID RADHA Administration ASSESSMENT/PLAN: 68 y/o/f female with past medical history of Dementia, Chronic UTI, HTN, Cirrhosis, Hepatitis C, CHF. Patient has also been experiencing worsening SOB and lower extremity edema. Patient was found to be hypotensive and hypoglycemic and admitted to the ICU. #Neuro - Patient AAOx1 (self) - Continue to monitor #Cardio - On Midodrine 10 mg TID - Central line placed in case pressor support is needed - Right IJ central line placed 04/22 #GI - hepatorenal syndrome suspected - will correct coagulopathy with 2 units FFP and vitamin K, continue to monitor - Blood cx negative. Urine culture growing ESBL - hold diuretics - continue midodrine; can add octreotide if HRS confirmed - concern for SBP, may need tap but will need to correct coagulopathy first - continue lactulose/rifaximin; titrate to 3bm per day #Renal - P-anca, C-anca, antiglomerular basement membrane, and DNA antibody serologies ordered as per Dr. Bagley - recommended to avoid fluids and use pressor support for BP as needed - renal U/S negative for acute pathology - BUN/Cr elevated to 96.2/5.5 compared to 34.9/1.4 during last visit in December of this year #ID - R/o SBP - will likely need a paracentesis - UTI - ecoli esbl interactive producer - patient switched to Ertapenem #Heme - thrombocytopenia at 79, monitor - Hgb/Hct - 9.5/27.8 #Prophylaxis - SCDs - Holding chemical anticoagulation as INR is already elevated and patient may need paracentesis - Protonix #FEN - Dysphagia puree diet #Disposition - Continue to monitor in ICU Visit type - Emergency Visit Emergency Visit: Yes ED Registration Date: 04/20/19 Care time: The patient presented to the Emergency Department on the above date and was hospitalized for further evaluation of their emergent condition. - New Patient This patient is new to me today: Yes Date on this admission: 04/23/19 - Critical Care Critical Care patient: Yes Total Critical Care Time (in minutes): 36 Critical Care Statement: The care of this patient involved high complexity decision making to prevent further life threatening deterioration of the patient 's condition and/or to evaluate & treat vital organ system(s) failure or risk of failure. ATTENDING PHYSICIAN STATEMENT I saw and evaluated the patient. I reviewed the resident's note and discussed the case with the resident. I agree with the resident's findings and plan as documented. SUBJECTIVE: OBJECTIVE: ASSESSMENT AND PLAN:
[2019-04-22] MEDS ORDERED: PT OWN MED DRAWER 7, Y5N ONE ×2 (13:57→21:46)
[2019-04-22] MEDS: DEXTROSE 5%-NORMAL SALINE 1,000 ML IV SCH (14:10)
--- NOTE | 2019-04-22 16:33 | PROC ---
Central Line Insertion Indication: CVP Monitoring, Vasopressor Risks and Benefits Explained: Yes Consent on Chart: Yes Central Line: Triple Lumen Catheter Anesthesia: 1% Lidocaine Sterile Technique: Yes Ultrasound Guided Assistance: Yes Position: Right Internal Jugular Post Insertion: Yes: Bilateral Breath Sounds Sterile Dressing Applied: Yes
[2019-04-22] MEDS ORDERED: NOREPINEPHRINE BITARTRATE 4 MG/4 ML ML IV ONE (18:08)
[2019-04-22] MEDS: NOREPINEPHRINE BITARTRATE 8,000 MCG in DEXTROSE 5%-WATER - 492 ML IV SCH (18:11)
[2019-04-22] MEDS: ALBUTEROL SO4 0.083% IH SOL 2.5 MG/3 ML VIAL.NEB. NEB PRN (18:39)
[2019-04-22 19:40] LABS: INR 2.26 (0.83-1.09); PROTHROMBIN TIME (PATIENT) 26.9 SEC (9.7-13.0)
[2019-04-22] MEDS: CHLORHEXIDINE GLUCONATE 4% CLEANSER FOR DECOLONIZATION TP SCH (21:57)
[2019-04-23 04:34] LABS: INR 1.88 (0.83-1.09); PROTHROMBIN TIME (PATIENT) 22.3 SEC (9.7-13.0)
[2019-04-23] MEDS ORDERED: PT OWN MED DRAWER 7, Y5N ONE ×3 (06:09→20:51)
[2019-04-23] MEDS: ONDANSETRON 4 MG TABLET PO SCH ×3 (06:16→21:01)
[2019-04-23 06:22] LABS: BASO % 0.5 % (0-2.0); EOS % 0.4 % (0-4.5); HEMATOCRIT 24.2 % (32.4-45.2); HEMOGLOBIN 8.2 GM/dL (10.7-15.3); LYMPH % 10.9 % (8-40); MCH 30.5 pg (25.7-33.7); MEAN CELL VOLUME 89.7 fl (80-96); MEAN PLT VOLUME 8.8 fl (7.5-11.1); MONO % 9.7 % (3.8-10.2); NEUT % 78.5 % (42.8-82.8); PLATELET COUNT 82 K/MM3 (134-434); RDW 19.1 % (11.6-15.6); WHITE BLOOD COUNT 14.2 K/mm3 (4.0-10.0)
[2019-04-23 06:53] LABS: ALBUMIN 2.3 g/dl (3.4-5.0); BILIRUBIN,TOTAL 2.8 mg/dL (0.2-1); CALCIUM 8.1 mg/dL (8.5-10.1); CREATININE 5.8 mg/dL (0.55-1.3); MAGNESIUM 1.7 mg/dL (1.8-2.4); PHOSPHOROUS 5.5 mg/dL (2.5-4.9); TOT PROT 5.1 g/dl (6.4-8.2)
[2019-04-23] MEDS ORDERED: MAGNESIUM SULF 50% (8.12 MEQ/2 ML-1 GM VIAL) IVPB ONE (07:34)
[2019-04-23] MEDS: ERTAPENEM SODIUM 0.5 GM in SODIUM CHLORIDE 50 ML IVPB SCH (09:30)
[2019-04-23] MEDS: RIFAXIMIN 550 MG TABLET (UD) PO SCH ×2 (09:30→21:01)
[2019-04-23] MEDS: PANTOPRAZOLE 40 MG TABLET (FP) PO SCH (09:30)
[2019-04-23] MEDS: MUPIROCIN 2% TOPICAL OINTMENT FOR DECOLONIZATION NS SCH ×2 (09:31→21:02)
[2019-04-23] MEDS: MIDODRINE HCL 5 MG TABLET PO SCH ×3 (09:31→17:00)
--- NOTE | 2019-04-23 09:36 | PN ---
Progress Note, Physician - Current Medication List Current Medications: Active Medications Albuterol Sulfate (Ventolin 0.083% Nebulizer Soln -) 1 amp NEB Q6H PRN PRN Reason: SHORT OF BREATH/WHEEZING Last Admin: 04/22/19 18:39 Dose: 1 amp Chlorhexidine Gluconate (Hibiclens For Decolonization -) 1 applic TP HS RADHA Last Admin: 04/22/19 21:57 Dose: 1 applic Ergocalciferol (Drisdol -) 50,000 unit PO Q7D@1000 RADHA Furosemide (Lasix -) 40 mg PO BIDLASIX RADHA Ertapenem 0.5 gm/ Sodium (Chloride) 50 mls @ 100 mls/hr IVPB DAILY RADHA Last Admin: 04/23/19 09:30 Dose: 100 mls/hr Norepinephrine Bitartrate 8, (000 mcg/ Dextrose) 500 mls @ 18.75 mls/hr IV TITR RADHA; Protocol Last Titration: 04/23/19 08:30 Dose: 4 mcg/min, 15 mls/hr Midodrine (Proamatine -) 10 mg PO TID-MID [facility] Last Admin: 04/23/19 09:31 Dose: 10 mg Morphine Sulfate (Morphine Sulfate) 2 mg IVPUSH Q4H PRN PRN Reason: PAIN LEVEL 1-5 Last Admin: 04/22/19 19:42 Dose: 2 mg Mupirocin (Bactroban Ointment (For Decolonization) -) 1 applic NS BID [facility] Stop: 04/25/19 21:59 Last Admin: 04/23/19 09:31 Dose: 1 applic Ondansetron HCl (Zofran -) 4 mg PO TID [facility] Last Admin: 04/23/19 06:16 Dose: 4 mg Pantoprazole Sodium (Protonix -) 40 mg PO DAILY [facility] Last Admin: 04/23/19 09:30 Dose: 40 mg Rifaximin (Xifaxan -) 550 mg PO BID [facility] Last Admin: 04/23/19 09:30 Dose: 550 mg - Objective Vital Signs: Vital Signs Temperature 98.4 F 04/23/19 06:00 Pulse Rate 86 04/23/19 06:00 Respiratory Rate 25 H 04/23/19 06:00 Blood Pressure 126/50 L 04/23/19 06:00 O2 Sat by Pulse Oximetry (%) 97 04/22/19 21:00 Cardiovascular: Yes: S1, S2 Respiratory: Yes: Regular, CTA Bilaterally Gastrointestinal: Yes: Normal Bowel Sounds, Soft Neurological: Yes: Lethargy Labs: CBC, BMP 04/23/19 05:00 04/23/19 05:00 INR, PTT INR 1.88 (0.83-1.09) H 04/23/19 03:50 Assessment/Plan - Problems (1) Sepsis Assessment/Plan: on ertrapenem Microbiology 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 Coli Esbl St[employer] keep MAP > 55-60- pressors phenylpephriine monitor urine output Code(s): A41.9 - SEPSIS, UNSPECIFIED ORGANISM (2) Acute renal failure Assessment/Plan: renal sono no hydronephrosis and no obstruction creatinine increased from 1.4 in last admission to 5.5-5.8 renal on board, monitor renal urine output keep MAP >55 possible HD Zev Meng is the HCP Code(s): N17.9 - ACUTE KIDNEY FAILURE, UNSPECIFIED (3) Coagulopathy Assessment/Plan: vitamin K and FFP secondary to cirrhosis Code(s): D68.9 - COAGULATION DEFECT, UNSPECIFIED (4) Liver cirrhosis Assessment/Plan: rifaximin possible paracentesis once coagulopathy improves Code(s): K74.60 - UNSPECIFIED CIRRHOSIS OF LIVER (5) Dysphagia Assessment/Plan: seen by swallow team dysphagia pureed with honey thick Code(s): R13.10 - DYSPHAGIA, UNSPECIFIED (6) Hyponatremia Assessment/Plan: hepato renal syndrome monitor sodium better today 132 Code(s): E87.1 - HYPO-OSMOLALITY AND HYPONATREMIA (7) DVT (deep venous thrombosis) Assessment/Plan: ida rust for now Code(s): I82.409 - ACUTE EMBOLISM AND THOMBOS UNSP DEEP VN UNSP LOWER EXTREMITY
--- NOTE | 2019-04-23 11:20 | PN ---
Teaching Attending Note Name of Resident: Kiley Roth ATTENDING PHYSICIAN STATEMENT I saw and evaluated the patient. I reviewed the resident's note and discussed the case with the resident. I agree with the resident's findings and plan as documented. SUBJECTIVE: Patient seen and examined in the ICU. Awake and more interactive today but remains confused. Knows her name and that she is at [facility]. Denies CP or SOB. Non-specific abdominal discomfort. On 5 mcq Levophed for hemodynamic support. Intake & Output 04/21/19 04/21/19 04/22/19 04/23/19 00:59 23:59 23:59 23:59 Intake Total 1556 672 Output Total 330 300 Balance 1226 372 Weight 165 lb 167 lb 12.8 oz Last Vital Signs Temp Pulse Resp BP Pulse Ox 98.4 F 86 25 H 126/50 L 97 04/23/19 06:00 04/23/19 06:00 04/23/19 06:00 04/23/19 06:00 04/22/19 21:00 Active Medications Albuterol Sulfate (Ventolin 0.083% Nebulizer Soln -) 1 amp NEB Q6H PRN PRN Reason: SHORT OF BREATH/WHEEZING Last Admin: 04/22/19 18:39 Dose: 1 amp Chlorhexidine Gluconate (Hibiclens For Decolonization -) 1 applic TP HS RADHA Last Admin: 04/22/19 21:57 Dose: 1 applic Ergocalciferol (Drisdol -) 50,000 unit PO Q7D@1000 RADHA Furosemide (Lasix -) 40 mg PO BIDLASIX RADHA Ertapenem 0.5 gm/ Sodium (Chloride) 50 mls @ 100 mls/hr IVPB DAILY RADHA Last Admin: 04/23/19 09:30 Dose: 100 mls/hr Norepinephrine Bitartrate 8, (000 mcg/ Dextrose) 500 mls @ 18.75 mls/hr IV TITR RADHA; Protocol Last Titration: 04/23/19 08:30 Dose: 4 mcg/min, 15 mls/hr Midodrine (Proamatine -) 10 mg PO TID-MID RADHA Last Admin: 04/23/19 09:31 Dose: 10 mg Morphine Sulfate (Morphine Sulfate) 2 mg IVPUSH Q4H PRN PRN Reason: PAIN LEVEL 1-5 Last Admin: 04/22/19 19:42 Dose: 2 mg Mupirocin (Bactroban Ointment (For Decolonization) -) 1 applic NS BID [facility] Stop: 04/25/19 21:59 Last Admin: 04/23/19 09:31 Dose: 1 applic Ondansetron HCl (Zofran -) 4 mg PO TID [facility] Last Admin: 04/23/19 06:16 Dose: 4 mg Pantoprazole Sodium (Protonix -) 40 mg PO DAILY [facility] Last Admin: 04/23/19 09:30 Dose: 40 mg Rifaximin (Xifaxan -) 550 mg PO BID [facility] Last Admin: 04/23/19 09:30 Dose: 550 mg HEENT: icteric sclera Lungs: diminished; dry cough Heart: RRR Abd: dense, distended, fluid wave Ext: LE edema, warm Neuro: awake and interactive, confused Laboratory Results - last 24 hr 04/22/19 04/22/19 04/22/19 10:30 11:45 14:00 WBC RBC Hgb Hct MCV MCH MCHC RDW Plt Count MPV Absolute Neuts (auto) Neutrophils % Lymphocytes % Monocytes % Eosinophils % Basophils % Nucleated RBC % PT with INR INR PTT (Actin FS) Sodium Potassium Chloride Carbon Dioxide Anion Gap BUN Creatinine Est GFR (CKD-EPI)AfAm Est GFR (CKD-EPI)NonAf POC Glucometer 100 Random Glucose Calcium Phosphorus Magnesium Total Bilirubin AST ALT Alkaline Phosphatase Total Protein Albumin Ur Random Sodium 31 L Blood Type A POSITIVE Antibody Screen Negative 04/22/19 04/22/19 04/22/19 17:34 18:00 22:59 WBC RBC Hgb Hct MCV MCH MCHC RDW Plt Count MPV Absolute Neuts (auto) Neutrophils % Lymphocytes % Monocytes % Eosinophils % Basophils % Nucleated RBC % PT with INR 26.90 H INR 2.26 H PTT (Actin FS) Sodium Potassium Chloride Carbon Dioxide Anion Gap BUN Creatinine Est GFR (CKD-EPI)AfAm Est GFR (CKD-EPI)NonAf POC Glucometer 85 118 Random Glucose Calcium Phosphorus Magnesium Total Bilirubin AST ALT Alkaline Phosphatase Total Protein Albumin Ur Random Sodium Blood Type Antibody Screen 04/23/19 04/23/19 04/23/19 03:50 03:50 05:00 WBC 14.2 H RBC 2.70 L Hgb 8.2 L Hct 24.2 L MCV 89.7 MCH 30.5 MCHC 34.0 RDW 19.1 H Plt Count 82 L MPV 8.8 D Absolute Neuts (auto) 11.1 H Neutrophils % 78.5 Lymphocytes % 10.9 D Monocytes % 9.7 Eosinophils % 0.4 Basophils % 0.5 Nucleated RBC % 0 PT with INR Cancelled 22.30 H INR Cancelled 1.88 H PTT (Actin FS) 34.1 Sodium Potassium Chloride Carbon Dioxide Anion Gap BUN Creatinine Est GFR (CKD-EPI)AfAm Est GFR (CKD-EPI)NonAf POC Glucometer Random Glucose Calcium Phosphorus Magnesium Total Bilirubin AST ALT Alkaline Phosphatase Total Protein Albumin Ur Random Sodium Blood Type Antibody Screen 04/23/19 04/23/19 05:00 06:14 WBC RBC Hgb Hct MCV MCH MCHC RDW Plt Count MPV Absolute Neuts (auto) Neutrophils % Lymphocytes % Monocytes % Eosinophils % Basophils % Nucleated RBC % PT with INR INR PTT (Actin FS) Sodium 132 L Potassium 4.0 Chloride 100 Carbon Dioxide 20 L Anion Gap 12 BUN 96.0 H Creatinine 5.8 H Est GFR (CKD-EPI)AfAm 8.00 Est GFR (CKD-EPI)NonAf 6.91 POC Glucometer 110 Random Glucose 116 H Calcium 8.1 L Phosphorus 5.5 H Magnesium 1.7 L Total Bilirubin 2.8 H AST 45 H ALT 25 Alkaline Phosphatase 93 Total Protein 5.1 L Albumin 2.3 L Ur Random Sodium Blood Type Antibody Screen ASSESSMENT: HCV Cirrhosis UTI Septic shock DAVID Lactic acidosis Hypoglycemia DVT Thrombocytopenia Ascites PLAN: -FFP and Vitamin K to correct coagulopathy -IR for diagnostic paracentesis -Wean pressors as tolerated -Follow CVP -Cont ABX per ID -Follow up final cultures -GI PPx -Requires ICU monitoring for pressors and MOF Dr Valenzuela Critical care time spent in reviewing chart, evaluating patient and formulating plan - 36 minutes.
--- NOTE | 2019-04-23 13:08 | PN ---
Physical Exam: SUBJECTIVE: Patient seen and examined this morning. AAOx1 (self). Unable to follow commands. Patient was on Levophed overnight due to hypotension. OBJECTIVE: Vital Signs Period Temp Pulse Resp BP Sys/Bolaños Pulse Ox Last 24 Hr 97.4 F-99.8 F 62-94 12-28 96-133/40-75 94-97 GENERAL: AAOx1 (self) HEAD: Normal with no signs of trauma. ENT: dry mucous membranes NECK: Trachea midline, supple. Right IJ in place LUNGS: Breath sounds equal, clear to auscultation bilaterally, no wheezes, no crackles, no accessory muscle use. HEART: bradycardic, murmur noted ABDOMEN: Caput [place] noted, Soft, nontender, nondistended, normoactive bowel sounds, no guarding, no rebound EXTREMITIES: 2+ non pitting edema noted bilaterally. 2+ pulses, warm, well- perfused, no edema. NEUROLOGICAL: unable to assess Laboratory Results - last 24 hr 04/22/19 04/22/19 04/22/19 14:00 17:34 18:00 WBC RBC Hgb Hct MCV MCH MCHC RDW Plt Count MPV Absolute Neuts (auto) Neutrophils % Lymphocytes % Monocytes % Eosinophils % Basophils % Nucleated RBC % PT with INR 26.90 H INR 2.26 H PTT (Actin FS) Sodium Potassium Chloride Carbon Dioxide Anion Gap BUN Creatinine Est GFR (CKD-EPI)AfAm Est GFR (CKD-EPI)NonAf POC Glucometer 85 Random Glucose Calcium Phosphorus Magnesium Total Bilirubin AST ALT Alkaline Phosphatase Total Protein Albumin Ur Random Sodium 31 L 04/22/19 04/23/19 04/23/19 22:59 03:50 03:50 WBC RBC Hgb Hct MCV MCH MCHC RDW Plt Count MPV Absolute Neuts (auto) Neutrophils % Lymphocytes % Monocytes % Eosinophils % Basophils % Nucleated RBC % PT with INR Cancelled 22.30 H INR Cancelled 1.88 H PTT (Actin FS) 34.1 Sodium Potassium Chloride Carbon Dioxide Anion Gap BUN Creatinine Est GFR (CKD-EPI)AfAm Est GFR (CKD-EPI)NonAf POC Glucometer 118 Random Glucose Calcium Phosphorus Magnesium Total Bilirubin AST ALT Alkaline Phosphatase Total Protein Albumin Ur Random Sodium 04/23/19 04/23/19 04/23/19 05:00 05:00 06:14 WBC 14.2 H RBC 2.70 L Hgb 8.2 L Hct 24.2 L MCV 89.7 MCH 30.5 MCHC 34.0 RDW 19.1 H Plt Count 82 L MPV 8.8 D Absolute Neuts (auto) 11.1 H Neutrophils % 78.5 Lymphocytes % 10.9 D Monocytes % 9.7 Eosinophils % 0.4 Basophils % 0.5 Nucleated RBC % 0 PT with INR INR PTT (Actin FS) Sodium 132 L Potassium 4.0 Chloride 100 Carbon Dioxide 20 L Anion Gap 12 BUN 96.0 H Creatinine 5.8 H Est GFR (CKD-EPI)AfAm 8.00 Est GFR (CKD-EPI)NonAf 6.91 POC Glucometer 110 Random Glucose 116 H Calcium 8.1 L Phosphorus 5.5 H Magnesium 1.7 L Total Bilirubin 2.8 H AST 45 H ALT 25 Alkaline Phosphatase 93 Total Protein 5.1 L Albumin 2.3 L Ur Random Sodium Active Medications Generic Name Dose Route Start Last Admin Trade Name Freq PRN Reason Stop Dose Admin Albuterol Sulfate 1 amp 04/20/19 18:00 04/22/19 18:39 Ventolin 0.083% Nebulizer Soln - NEB 1 amp Q6H PRN Administration SHORT OF BREATH/WHEEZING Chlorhexidine Gluconate 1 applic 04/20/19 22:00 04/22/19 21:57 Hibiclens For Decolonization - TP 1 applic HS RADHA Administration Ergocalciferol 50,000 unit 04/27/19 10:00 Drisdol - PO Q7D@1000 RADHA Furosemide 40 mg 04/21/19 06:00 Lasix - PO BIDLASIX RADHA Ertapenem 0.5 gm/ Sodium 50 mls @ 100 mls/hr 04/22/19 10:00 04/23/19 09:30 Chloride IVPB 100 mls/hr DAILY RADHA Administration Norepinephrine Bitartrate 8, 500 mls @ 18.75 mls/hr 04/22/19 17:00 04/23/19 08:30 000 mcg/ Dextrose IV 4 mcg/min TITR RADHA 15 mls/hr Titration Protocol 5 MCG/MIN Midodrine 10 mg 04/21/19 13:31 04/23/19 09:31 Proamatine - PO 10 mg TID-MID RADHA Administration Morphine Sulfate 2 mg 04/21/19 05:24 04/22/19 19:42 Morphine Sulfate IVPUSH 2 mg Q4H PRN Administration PAIN LEVEL 1-5 Mupirocin 1 applic 04/20/19 22:00 04/23/19 09:31 Bactroban Ointment (For Decolonization) - NS 04/25/19 21:59 1 applic BID RADHA Administration Ondansetron HCl 4 mg 04/20/19 22:00 04/23/19 06:16 Zofran - PO 4 mg TID RADHA Administration Pantoprazole Sodium 40 mg 04/21/19 10:00 04/23/19 09:30 Protonix - PO 40 mg DAILY RADHA Administration Rifaximin 550 mg 04/20/19 22:00 04/23/19 09:30 Xifaxan - PO 550 mg BID RADHA Administration ASSESSMENT/PLAN: 68 y/o/f female with past medical history of Dementia, Chronic UTI, HTN, Cirrhosis, Hepatitis C, CHF. Patient has also been experiencing worsening SOB and lower extremity edema. Patient was found to be hypotensive and hypoglycemic and admitted to the ICU. #Neuro - Patient AAOx1 (self) - Continue to monitor #Cardio - On Midodrine 10 mg TID - Levophed overnight at 6mcg, wean as tolerated - Right IJ central line placed 04/22 #GI - hepatorenal syndrome suspected - Continue to correct coagulopathy with FPP, 5 units given total. repeat INR pending. - Blood cx negative. Urine culture growing ESBL - hold diuretics - continue midodrine; can add octreotide if HRS confirmed - concern for SBP, may need tap but will need to correct coagulopathy first - continue lactulose/rifaximin; titrate to 3bm per day #Renal - P-anca, C-anca, antiglomerular basement membrane, and DNA antibody serologies ordered as per Dr. Bagley - recommended to avoid fluids and use pressor support for BP as needed - renal U/S negative for acute pathology - BUN/Cr elevated to 96.2/5.5 -> 96/5.8. Compared to 34.9/1.4 during last visit in December of this year #ID - R/o SBP - will need a paracentesis - UTI - ecoli esbl film reproducer - patient switched to Ertapenem as per ID. (Day 2 of Ertapenem) #Heme - thrombocytopenia 79 -> 82, improving, monitor - Hgb/Hct downtrending - 9.5/27.8 -> 8.2/24.2 - Stool occult blood test ordered #Prophylaxis - SCDs - Holding chemical anticoagulation as INR is already elevated and will need paracentesis to r/o SBP - Protonix #FEN - Dysphagia puree diet #Disposition - Continue to monitor in ICU Visit type - Emergency Visit Emergency Visit: Yes ED Registration Date: 04/20/19 Care time: The patient presented to the Emergency Department on the above date and was hospitalized for further evaluation of their emergent condition. - New Patient This patient is new to me today: No - Critical Care Critical Care patient: Yes Total Critical Care Time (in minutes): 36 Critical Care Statement: The care of this patient involved high complexity decision making to prevent further life threatening deterioration of the patient 's condition and/or to evaluate & treat vital organ system(s) failure or risk of failure. ATTENDING PHYSICIAN STATEMENT I saw and evaluated the patient. I reviewed the resident's note and discussed the case with the resident. I agree with the resident's findings and plan as documented. SUBJECTIVE: OBJECTIVE: ASSESSMENT AND PLAN:
--- NOTE | 2019-04-23 13:59 | PN ---
Progress Note (short form) - Note Progress Note: sleepy, now on pressors Vital Signs Period Temp Pulse Resp BP Sys/Bolaños Pulse Ox Last 24 Hr 97.4 F-99.8 F 62-94 13-28 96-133/40-75 94-97 cor-rrr lungs decreased bs at bases abd soft,+fluid ext +edema multiple ecchymoses CBC, BMP 04/23/19 05:00 04/23/19 05:00 renal sonogram- no obstruction Microbiology 04/20/19 13:28 Blood - Peripheral Venous Blood Culture - Preliminary NO GROWTH OBTAINED AFTER 72 HOURS, INCUBATION TO CONTINUE FOR 2 DAYS. 04/20/19 13:28 Blood - Peripheral Venous Blood Culture - Preliminary NO GROWTH OBTAINED AFTER 72 HOURS, INCUBATION TO CONTINUE FOR 2 DAYS. 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 Coli Esbl [employer] Worker Active Medications Albuterol Sulfate (Ventolin 0.083% Nebulizer Soln -) 1 amp NEB Q6H PRN PRN Reason: SHORT OF BREATH/WHEEZING Last Admin: 04/22/19 18:39 Dose: 1 amp Chlorhexidine Gluconate (Hibiclens For Decolonization -) 1 applic TP HS RADHA Last Admin: 04/22/19 21:57 Dose: 1 applic Ergocalciferol (Drisdol -) 50,000 unit PO Q7D@1000 RADHA Furosemide (Lasix -) 40 mg PO BIDLASIX RADHA Ertapenem 0.5 gm/ Sodium (Chloride) 50 mls @ 100 mls/hr IVPB DAILY RADHA Last Admin: 04/23/19 09:30 Dose: 100 mls/hr Norepinephrine Bitartrate 8, (000 mcg/ Dextrose) 500 mls @ 18.75 mls/hr IV TITR RADHA; Protocol Last Titration: 04/23/19 13:07 Dose: 3 mcg/min, 11.25 mls/hr Midodrine (Proamatine -) 10 mg PO TID-MID RADHA Last Admin: 04/23/19 09:31 Dose: 10 mg Morphine Sulfate (Morphine Sulfate) 2 mg IVPUSH Q4H PRN PRN Reason: PAIN LEVEL 1-5 Last Admin: 04/22/19 19:42 Dose: 2 mg Mupirocin (Bactroban Ointment (For Decolonization) -) 1 applic NS BID RADHA Stop: 11/07/19 21:59 Last Admin: 04/23/19 09:31 Dose: 1 applic Ondansetron HCl (Zofran -) 4 mg PO TID [facility] Last Admin: 04/23/19 06:16 Dose: 4 mg Pantoprazole Sodium (Protonix -) 40 mg PO DAILY [facility] Last Admin: 04/23/19 09:30 Dose: 40 mg Rifaximin (Xifaxan -) 550 mg PO BID [facility] Last Admin: 04/23/19 09:30 Dose: 550 mg a/p sepsis renal failure cirrhosis recent DVT coagulopathy thrombocytopenia cotinue ertapenem adjusted for renal failue for IR paracentesis remains on pressors d/w at bedside
--- NOTE | 2019-04-23 14:12 | PN ---
Progress Note, PERSONAL LINES ACCOUNT EXECUTIVE - Note Progress Note: Dysphagia Impressions/Plan Swallowing Skills: Impaired Dysphagia Impressions: Moderate Impairment, Risk of Aspiration (with thin liquids), Suspect Aspiration (with thin liquids) *Silent aspiration: cannot be R/O at bedside Dysphagia Treatment Plan: Small Bites, Safe Rate, 1/2 tsp. at a time, Elevate HOB during feed, Other (monitor nutritional intake and pulmonary status.) Dysphagia Evaluation Summary: Continue po intake of puree solids and downgrade to honey thicken liquids as tolerated. Observe standard aspiration precautions. Provide oral care before and after meal meals. Medication can be given crushed with applesauce. Results given verbally to charge out clerk and PCP via chart. PERSONAL LINES ACCOUNT EXECUTIVE to follow up for diet tolerance. - Recommendations Diet Consistency: Dysphagia Pureed Medication Administration: Crushed with applesauce Liquids: Honey Thick Selected Entries 04/22/19 04/22/19 04/22/19 02:00 04:00 04:38 Breakfast Lunch Supper 50% Temperature 96.2 F L 96.3 F L 04/22/19 04/22/19 04/22/19 06:00 08:00 10:00 Breakfast 25% Lunch 25% Supper Temperature 95.6 F L 96 F L 97.2 F L 04/22/19 04/22/19 04/22/19 12:00 13:30 14:30 Breakfast Lunch Supper Temperature 97.5 F L 97.7 F 97.7 F 04/22/19 04/22/19 04/22/19 16:00 18:00 20:00 Breakfast Lunch Supper Temperature 97.4 F L 98.1 F 99.8 F H 04/22/19 04/23/19 04/23/19 22:00 00:00 02:00 Breakfast Lunch Supper 75% Temperature 99.6 F 99.5 F 99.3 F 04/23/19 04/23/19 04/23/19 04:00 06:00 08:00 Breakfast Lunch Supper Temperature 99.2 F 98.4 F 98.2 F 04/23/19 04/23/19 10:00 12:00 Breakfast 50% Lunch Supper Temperature 98.0 F 97.7 F Laboratory Tests 04/20/19 04/21/19 04/22/19 13:28 05:55 05:55 WBC 20.4 H 12.0 H 12.0 H 04/23/19 05:00 WBC 14.2 H CXR Bibasilar infiltrates Pt w h/o Left vocal cord paralysis with Jan 2019 MBS-trace silent aspiration on nectar thick and mild on thin liquid Per pt's , swallowing improved and one pt left NH, she started eating and drinking "everything". Suspect aspiration on upgraded diet at home. Lethargic today. Consider NPO until fully alert. Dys puree/honey thick liquid on tsp once fully alert.Chin tuck, swallow hard x 2. NPO if cough,congestion, Repeat MBS, if congestion persists
[2019-04-23 14:26] LABS: INR 1.72 (0.83-1.09); PROTHROMBIN TIME (PATIENT) 20.4 SEC (9.7-13.0)
--- NOTE | 2019-04-23 15:04 | PN.GI ---
GI Progress Note Subjective: No Acute events Mentation improved - Objective Vital Signs: Vital Signs Temperature 99.1 F 04/23/19 14:00 Pulse Rate 80 04/23/19 14:00 Respiratory Rate 17 04/23/19 14:00 Blood Pressure 116/48 L 04/23/19 14:00 O2 Sat by Pulse Oximetry (%) 94 L 04/23/19 09:00 Constitutional: Calm Eyes: No: Sclera Icterus Cardiovascular: Yes: Regular Rate and Rhythm, Murmur (2/6 systolic murmur) Respiratory: Yes: Diminished (at bases bilaterally) Gastrointestinal Inspection: Yes: Distention ...Auscultate: Yes: Normoactive Bowel Sounds ...Palpate: No: Tenderness (No grimacing upon palpation) ...Percussion: No: Tympanitic Neurological: Yes: Alert Labs: CBC, BMP 04/23/19 05:00 04/23/19 05:00 INR, PTT INR 1.72 (0.83-1.09) H 04/23/19 12:25 Laboratory Tests 04/20/19 04/22/19 16:16 14:00 Ur Random Sodium 56 31 L Problem List - Problems (1) Liver cirrhosis Assessment/Plan: 68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 Worsening coagulopathy. - Correct coagulopathy - Follow up cx, so far negative - Hold diuretics - Continue abx - Continue midodrine; can add octreotide 100mg SC TID if HRS confirmed - Urine sodium not classically consistent with HRS. Renal following - Continue lactulose/rifaximin; titrate to 3bm per day Overall poor prognosis Code(s): K74.60 - UNSPECIFIED CIRRHOSIS OF LIVER
--- NOTE | 2019-04-23 15:28 | PN ---
Progress Note, Physician History of Present Illness: Pt seen and examined at bedside. She is awake and appears comfortable. - Current Medication List Current Medications: Active Medications Albuterol Sulfate (Ventolin 0.083% Nebulizer Soln -) 1 amp NEB Q6H PRN PRN Reason: SHORT OF BREATH/WHEEZING Last Admin: 04/22/19 18:39 Dose: 1 amp Chlorhexidine Gluconate (Hibiclens For Decolonization -) 1 applic TP HS RADHA Last Admin: 04/22/19 21:57 Dose: 1 applic Ergocalciferol (Drisdol -) 50,000 unit PO Q7D@1000 RADHA Furosemide (Lasix -) 40 mg PO BIDLASIX RADHA Ertapenem 0.5 gm/ Sodium (Chloride) 50 mls @ 100 mls/hr IVPB DAILY RADHA Last Admin: 04/23/19 09:30 Dose: 100 mls/hr Norepinephrine Bitartrate 8, (000 mcg/ Dextrose) 500 mls @ 18.75 mls/hr IV TITR RADHA; Protocol Last Titration: 04/23/19 13:07 Dose: 3 mcg/min, 11.25 mls/hr Midodrine (Proamatine -) 10 mg PO TID-MID RADHA Last Admin: 04/23/19 14:02 Dose: 10 mg Morphine Sulfate (Morphine Sulfate) 2 mg IVPUSH Q4H PRN PRN Reason: PAIN LEVEL 1-5 Last Admin: 04/22/19 19:42 Dose: 2 mg Mupirocin (Bactroban Ointment (For Decolonization) -) 1 applic NS BID [facility] Stop: 04/25/19 21:59 Last Admin: 04/23/19 09:31 Dose: 1 applic Ondansetron HCl (Zofran -) 4 mg PO TID RADHA Last Admin: 04/23/19 14:02 Dose: 4 mg Rifaximin (Xifaxan -) 550 mg PO BID [facility] Last Admin: 04/23/19 09:30 Dose: 550 mg - Objective Vital Signs: Vital Signs Temperature 99.1 F 04/23/19 14:00 Pulse Rate 80 04/23/19 14:00 Respiratory Rate 17 04/23/19 14:00 Blood Pressure 116/48 L 04/23/19 14:00 O2 Sat by Pulse Oximetry (%) 94 L 04/23/19 09:00 Constitutional: Yes: Calm HENT: Yes: Atraumatic Neck: Yes: Supple Cardiovascular: Yes: S1, S2 Respiratory: Yes: CTA Bilaterally Gastrointestinal: Yes: Normal Bowel Sounds, Soft Genitourinary: Yes: Laguerre Present Musculoskeletal: Yes: Muscle Weakness Edema: LUE: Trace, RUE: Trace, LLE: Trace, RLE: Trace Integumentary: Yes: Skin Tear Neurological: Yes: Oriented Psychiatric: Yes: Oriented Labs: CBC, BMP 04/23/19 05:00 04/23/19 05:00 INR, PTT INR 1.72 (0.83-1.09) H 04/23/19 12:25 Assessment/Plan Current Medications Generic Name Dose Route Start Last Admin Trade Name Freq PRN Reason Stop Dose Admin Albuterol Sulfate 1 amp 04/20/19 18:00 04/22/19 18:39 Ventolin 0.083% Nebulizer Soln - NEB 1 amp Q6H PRN Administration SHORT OF BREATH/WHEEZING Chlorhexidine Gluconate 1 applic 04/20/19 22:00 04/22/19 21:57 Hibiclens For Decolonization - TP 1 applic HS RADHA Administration Ergocalciferol 50,000 unit 04/27/19 10:00 Drisdol - PO Q7D@1000 RADHA Furosemide 40 mg 04/21/19 06:00 Lasix - PO BIDLASIX RADHA Ertapenem 0.5 gm/ Sodium 50 mls @ 100 mls/hr 04/22/19 10:00 04/23/19 09:30 Chloride IVPB 100 mls/hr DAILY RADHA Administration Norepinephrine Bitartrate 8, 500 mls @ 18.75 mls/hr 04/22/19 17:00 04/23/19 13:07 000 mcg/ Dextrose IV 3 mcg/min TITR RADHA 11.25 mls/hr Titration Protocol 5 MCG/MIN Midodrine 10 mg 04/21/19 13:31 04/23/19 14:02 Proamatine - PO 10 mg TID-MID RADHA Administration Morphine Sulfate 2 mg 04/21/19 05:24 04/22/19 19:42 Morphine Sulfate IVPUSH 2 mg Q4H PRN Administration PAIN LEVEL 1-5 Mupirocin 1 applic 04/20/19 22:00 04/23/19 09:31 Bactroban Ointment (For Decolonization) - NS 04/25/19 21:59 1 applic BID RADHA Administration Ondansetron HCl 4 mg 04/20/19 22:00 04/23/19 14:02 Zofran - PO 4 mg TID RADHA Administration Rifaximin 550 mg 04/20/19 22:00 04/23/19 09:30 Xifaxan - PO 550 mg BID RADHA Administration Laboratory Tests 04/21/19 04/22/19 04/23/19 05:55 05:55 05:00 BUN 96.0 H Creatinine 5.8 H Total Protein (PEP) RADHA M-Tristen Serum Cryoglobulins Pending Rheumatoid Factor < 10.0 JOSE A Screen Pending c-ANCA Proteinase 3 (PR3) p-ANCA Atypical p-ANCA Myeloperoxidase Ab Double Strand DNA Ab Glomerular Base Memb Ab 04/23/19 04/23/19 05:00 05:00 BUN Creatinine Total Protein (PEP) Pending RADHA M-Tristen Pending Serum Cryoglobulins Rheumatoid Factor JOSE A Screen c-ANCA Pending Proteinase 3 (PR3) Pending p-ANCA Pending Atypical p-ANCA Pending Myeloperoxidase Ab Pending Double Strand DNA Ab Pending Glomerular Base Memb Ab Pending Impression 1. DAVID 2. CKD 3. hep C cirrhosis 4. UTI 5. sepsis 6. ascites 7. hypervolemic hyponatremia 8. coagulopathy PLAN - follow renal workup - monitor renal function - urine output is improving - monitor volume status - no indication for HD at this point - discussed with family - GI input appreciated
[2019-04-23] MEDS ORDERED: ACETAMINOPHEN 1000 MG/100 ML VIAL (NON FORMULARY) IVPB ONE (16:48)
[2019-04-23] MEDS ORDERED: NOREPINEPHRINE BITARTRATE 4 MG/4 ML ML IV ONE (18:15)
[2019-04-23] MEDS: NOREPINEPHRINE BITARTRATE 8,000 MCG in DEXTROSE 5%-WATER - 492 ML IV SCH (18:45)
[2019-04-23] MEDS: CHLORHEXIDINE GLUCONATE 4% CLEANSER FOR DECOLONIZATION TP SCH (21:02)
[2019-04-24] MEDS ORDERED: MORPHINE SULFATE 2 MG/ML VIAL ONE (05:58)
[2019-04-24] MEDS: ONDANSETRON 4 MG TABLET PO SCH ×3 (06:00→22:02)
[2019-04-24] MEDS ORDERED: morphine CARPU-JECT 4 MG/1 ML DISP.SYRIN IVPUSH SCH (06:00)
[2019-04-24 06:08] LABS: BASO % 0.3 % (0-2.0); EOS % 1.2 % (0-4.5); HEMATOCRIT 24.4 % (32.4-45.2); HEMOGLOBIN 8.5 GM/dL (10.7-15.3); LYMPH % 8.5 % (8-40); MCH 31.6 pg (25.7-33.7); MEAN CELL VOLUME 90.2 fl (80-96); MEAN PLT VOLUME 8.2 fl (7.5-11.1); MONO % 8.3 % (3.8-10.2); NEUT % 81.7 % (42.8-82.8); PLATELET COUNT 76 K/MM3 (134-434); RDW 18.4 % (11.6-15.6); WHITE BLOOD COUNT 10.1 K/mm3 (4.0-10.0)
[2019-04-24] MEDS: MORPHINE SULFATE 2 MG/ML VIAL IVPUSH PRN ×2 (06:22→22:02)
[2019-04-24 06:35] LABS: ALBUMIN 2.1 g/dl (3.4-5.0); BILIRUBIN,TOTAL 3.2 mg/dL (0.2-1); BLOOD UREA NITROGEN 97.5 mg/dL (7-18); CALCIUM 7.8 mg/dL (8.5-10.1); MAGNESIUM 1.7 mg/dL (1.8-2.4); PHOSPHOROUS 5.2 mg/dL (2.5-4.9); POTASSIUM 3.8 mmol/L (3.5-5.1); TOT PROT 4.8 g/dl (6.4-8.2)
[2019-04-24] MEDS ORDERED: MAGNESIUM SULF 50% (8.12 MEQ/2 ML-1 GM VIAL) IVPB ONE (08:36)
[2019-04-24] MEDS ORDERED: PT OWN MED DRAWER 7, Y5N ONE ×4 (08:53→21:56)
--- NOTE | 2019-04-24 09:08 | PN ---
Physical Exam: SUBJECTIVE: Patient seen and examined at bedside. More alert and active this morning. Knows that she is in [facility] now. No events overnight. Still not having bowel movements. On Levophed overnight for BP support. OBJECTIVE: Vital Signs Period Temp Pulse Resp BP Sys/Bolaños Pulse Ox Last 24 Hr 97.6 F-100.5 F 60-85 13-23 100-137/43-74 98 GENERAL: AAOx2 (self and place), more alert than yesterday HEAD: Normal with no signs of trauma. EYES: PERRL, EOMI ENT: dry mucous membranes NECK: Right IJ central line in place with surrounding ecchymosis LUNGS: Breath sounds equal, clear to auscultation bilaterally, no wheezes, no crackles, no accessory muscle use. HEART: murmur noted, regular rate and rhythm. ABDOMEN: Caput [place] noted, Soft, nontender, nondistended, normoactive bowel sounds, no guarding, no rebound EXTREMITIES: 2+ non pitting edema noted bilaterally. 2+ pulses, warm, well- perfused, no edema. Laboratory Results - last 24 hr 04/22/19 04/23/19 04/23/19 05:55 12:25 13:18 WBC RBC Hgb Hct MCV MCH MCHC RDW Plt Count MPV Absolute Neuts (auto) Neutrophils % Lymphocytes % Monocytes % Eosinophils % Basophils % Nucleated RBC % PT with INR 20.40 H INR 1.72 H Sodium Potassium Chloride Carbon Dioxide Anion Gap BUN Creatinine Est GFR (CKD-EPI)AfAm Est GFR (CKD-EPI)NonAf Random Glucose Calcium Phosphorus Magnesium Total Bilirubin AST ALT Alkaline Phosphatase Creatine Kinase Troponin I Total Protein Albumin Stool Occult Blood Negative JOSE A Screen Negative 04/24/19 04/24/19 04/24/19 05:41 05:50 05:50 WBC 10.1 H RBC 2.70 L Hgb 8.5 L Hct 24.4 L MCV 90.2 MCH 31.6 MCHC 35.0 RDW 18.4 H Plt Count 76 L MPV 8.2 Absolute Neuts (auto) 8.3 H Neutrophils % 81.7 Lymphocytes % 8.5 D Monocytes % 8.3 Eosinophils % 1.2 D Basophils % 0.3 Nucleated RBC % 0 PT with INR INR Sodium 134 L Potassium 3.8 Chloride 103 Carbon Dioxide 20 L Anion Gap 12 BUN 97.5 H Creatinine 6.0 H Est GFR (CKD-EPI)AfAm 7.68 Est GFR (CKD-EPI)NonAf 6.63 Random Glucose 120 H Calcium 7.8 L Phosphorus 5.2 H Magnesium 1.7 L Total Bilirubin 3.2 H AST 40 H ALT 22 Alkaline Phosphatase 90 Creatine Kinase 22 L Troponin I 0.04 Total Protein 4.8 L Albumin 2.1 L Stool Occult Blood JOSE A Screen Active Medications Generic Name Dose Route Start Last Admin Trade Name Freq PRN Reason Stop Dose Admin Albuterol Sulfate 1 amp 04/20/19 18:00 04/22/19 18:39 Ventolin 0.083% Nebulizer Soln - NEB 1 amp Q6H PRN Administration SHORT OF BREATH/WHEEZING Chlorhexidine Gluconate 1 applic 04/20/19 22:00 04/23/19 21:02 Hibiclens For Decolonization - TP 1 applic HS RADHA Administration Ergocalciferol 50,000 unit 04/27/19 10:00 Drisdol - PO Q7D@1000 RADHA Furosemide 40 mg 04/21/19 06:00 Lasix - PO BIDLASIX RADHA Ertapenem 0.5 gm/ Sodium 50 mls @ 100 mls/hr 04/22/19 10:00 04/23/19 09:30 Chloride IVPB 100 mls/hr DAILY RADHA Administration Norepinephrine Bitartrate 8, 500 mls @ 18.75 mls/hr 04/22/19 17:00 04/24/19 08:27 000 mcg/ Dextrose IV 3 mcg/min TITR RADHA 11.25 mls/hr Titration Protocol 5 MCG/MIN Lactulose 20 gm 04/24/19 10:00 Cephulac (Oral Use) PO BID RADHA Midodrine 10 mg 04/21/19 13:31 04/23/19 17:00 Proamatine - PO 10 mg TID-MID RADHA Administration Morphine Sulfate 2 mg 04/24/19 06:03 04/24/19 06:22 Morphine Sulfate IVPUSH 2 mg Q4H PRN Administration PAIN LEVEL 7 - 10 Mupirocin 1 applic 04/20/19 22:00 04/23/19 21:02 Bactroban Ointment (For Decolonization) - NS 04/25/19 21:59 1 applic BID RADHA Administration Ondansetron HCl 4 mg 04/20/19 22:00 04/24/19 06:00 Zofran - PO 4 mg TID RADHA Administration Rifaximin 550 mg 04/20/19 22:00 04/23/19 21:01 Xifaxan - PO 550 mg BID RADHA Administration ASSESSMENT/PLAN: 68 y/o/f female with past medical history of Dementia, Chronic UTI, HTN, Cirrhosis, Hepatitis C, CHF. Patient has also been experiencing worsening SOB and lower extremity edema. Patient was found to be hypotensive and hypoglycemic and admitted to the ICU. #Neuro - Patient AAOx2 (self and place) - Continue to monitor #Cardio - On Midodrine 10 mg TID - Levophed overnight at 4mcg, wean as tolerated - Right IJ central line placed 04/22 #GI - hepatorenal syndrome unlikely - urine sodium not consistent with HRS - Continue to correct coagulopathy. 5 units FFP given total. Last INR at 1.8. - Blood cx negative. Urine culture grew ESBL - hold diuretics - continue midodrine; can add octreotide if HRS confirmed - concern for SBP but it is unlikely as patient has broad abx coverage, infectious source from UTI, and improving white count. - May need tap if still concerned for SBP but will need to correct coagulopathy first - lactulose/rifaximin; titrate to 3bm per day #Renal - P-anca, C-anca, antiglomerular basement membrane, and DNA antibody serologies ordered as per Dr. Bagley. pending. - recommended to avoid fluids and use pressor support for BP as needed - renal U/S negative for acute pathology - BUN/Cr elevated to 96/5.8 -> 97.5/6.0. 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 (Day 3 of Ertapenem). Dose adjusted for renal clearance #Heme - thrombocytopenia 76, fluctuating, monitor - Hgb/Hct at 8.5/24.4. monitor. - Stool occult blood test negative #Prophylaxis - SCDs - Holding chemical anticoagulation as INR is already elevated and will need paracentesis to r/o SBP - Protonix #FEN - Dysphagia puree diet #Disposition - Continue to monitor in ICU Visit type - Emergency Visit Emergency Visit: Yes ED Registration Date: 04/20/19 Care time: The patient presented to the Emergency Department on the above date and was hospitalized for further evaluation of their emergent condition. - New Patient This patient is new to me today: No - Critical Care Critical Care patient: Yes Total Critical Care Time (in minutes): 36 Critical Care Statement: The care of this patient involved high complexity decision making to prevent further life threatening deterioration of the patient 's condition and/or to evaluate & treat vital organ system(s) failure or risk of failure. ATTENDING PHYSICIAN STATEMENT I saw and evaluated the patient. I reviewed the resident's note and discussed the case with the resident. I agree with the resident's findings and plan as documented. SUBJECTIVE: OBJECTIVE: ASSESSMENT AND PLAN:
[2019-04-24] MEDS: ERTAPENEM SODIUM 0.5 GM in SODIUM CHLORIDE 50 ML IVPB SCH (09:55)
[2019-04-24] MEDS: LACTULOSE 20 GM/30 ML UDC (FOR ORAL USE ONLY) PO SCH ×2 (09:56→22:02)
[2019-04-24] MEDS: RIFAXIMIN 550 MG TABLET (UD) PO SCH ×2 (09:56→22:02)
[2019-04-24] MEDS: MIDODRINE HCL 5 MG TABLET PO SCH ×3 (09:56→19:43)
[2019-04-24] MEDS: MUPIROCIN 2% TOPICAL OINTMENT FOR DECOLONIZATION NS SCH ×2 (09:57→22:03)
--- NOTE | 2019-04-24 10:08 | PN ---
Progress Note (short form) - Note Progress Note: much more alert today denies abdominal pain still on levophed being tapered Vital Signs Period Temp Pulse Resp BP Sys/Bolaños Pulse Ox Last 24 Hr 97.6 F-100.5 F 60-85 13-23 100-137/43-74 98 cor-rrr lungs decreased bs at bases abd soft,nt ext skin tear right arm with bandage and left knee multiple ecchymoses tolentino CBC, BMP 04/24/19 05:50 04/24/19 05:50 Microbiology 04/20/19 13:28 Blood - Peripheral Venous Blood Culture - Preliminary NO GROWTH OBTAINED AFTER 72 HOURS, INCUBATION TO CONTINUE FOR 2 DAYS. 04/20/19 13:28 Blood - Peripheral Venous Blood Culture - Preliminary NO GROWTH OBTAINED AFTER 72 HOURS, INCUBATION TO CONTINUE FOR 2 DAYS. 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 - unchanged Current Medications Albuterol Sulfate (Ventolin 0.083% Nebulizer Soln -) 1 amp NEB Q6H PRN PRN Reason: SHORT OF BREATH/WHEEZING Last Admin: 04/22/19 18:39 Dose: 1 amp Chlorhexidine Gluconate (Hibiclens For Decolonization -) 1 applic TP HS [facility] Last Admin: 04/23/19 21:02 Dose: 1 applic Ergocalciferol (Drisdol -) 50,000 unit PO Q7D@1000 [facility] Furosemide (Lasix -) 40 mg PO BIDLASIX [facility] Ertapenem 0.5 gm/ Sodium (Chloride) 50 mls @ 100 mls/hr IVPB DAILY [facility] Last Admin: 04/23/19 09:30 Dose: 100 mls/hr Norepinephrine Bitartrate 8, (000 mcg/ Dextrose) 500 mls @ 18.75 mls/hr IV TITR [facility]; Protocol Last Titration: 04/24/19 08:27 Dose: 3 mcg/min, 11.25 mls/hr Lactulose (Cephulac (Oral Use)) 20 gm PO BID [facility] Midodrine (Proamatine -) 10 mg PO TID-MID [facility] Last Admin: 04/23/19 17:00 Dose: 10 mg Morphine Sulfate (Morphine Sulfate) 2 mg IVPUSH Q4H PRN PRN Reason: PAIN LEVEL 7 - 10 Last Admin: 04/24/19 06:22 Dose: 2 mg Mupirocin (Bactroban Ointment (For Decolonization) -) 1 applic NS BID [facility] Stop: 04/25/19 21:59 Last Admin: 04/23/19 21:02 Dose: 1 applic Ondansetron HCl (Zofran -) 4 mg PO TID [facility] Last Admin: 04/24/19 06:00 Dose: 4 mg Rifaximin (Xifaxan -) 550 mg PO BID [facility] Last Admin: 04/23/19 21:01 Dose: 550 mg a/p sepsis-improving, pressors being tapered ecoli ESBL UTI-continue ertapenem renal failure-still some urine output, renal following cirrhosis recent DVT coagulopathy thrombocytopenia ?paracentesis continue ertapenem day #4 antiiboitics continue contact isolation d/w renal
--- NOTE | 2019-04-24 10:26 | EKG ---
Test Reason : Blood Pressure : / mmHG Vent. Rate : 067 BPM Atrial Rate : 067 BPM P-R Int : 136 ms QRS Dur : 086 ms QT Int : 450 ms P-R-T Axes : 058 037 048 degrees QTc Int : 475 ms SINUS RHYTHM WITH PREMATURE ATRIAL COMPLEXES OTHERWISE NORMAL ECG WHEN COMPARED WITH ECG OF 20-APR-2019 13:32, PREMATURE ATRIAL COMPLEXES ARE NOW PRESENT VENT. RATE HAS DECREASED BY 33 BPM Confirmed by SARAH ARITA, KETAN ([id number]) on 04/24/2019 10:25:51 AM Referred By: Confirmed By:KETAN SMITH MD
--- NOTE | 2019-04-24 10:47 | PN ---
Progress Note, Physician Chief Complaint: UTI Pneumonia Sepsis Septic shock History of Present Illness: NAD alert, pleasantly confused Still on levophed - Current Medication List Current Medications: Active Medications Albuterol Sulfate (Ventolin 0.083% Nebulizer Soln -) 1 amp NEB Q6H PRN PRN Reason: SHORT OF BREATH/WHEEZING Last Admin: 04/22/19 18:39 Dose: 1 amp Chlorhexidine Gluconate (Hibiclens For Decolonization -) 1 applic TP HS [facility] Last Admin: 04/23/19 21:02 Dose: 1 applic Ergocalciferol (Drisdol -) 50,000 unit PO Q7D@1000 [facility] Furosemide (Lasix -) 40 mg PO BIDLASIX [facility] Ertapenem 0.5 gm/ Sodium (Chloride) 50 mls @ 100 mls/hr IVPB DAILY [facility] Last Admin: 04/24/19 09:55 Dose: 100 mls/hr Norepinephrine Bitartrate 8, (000 mcg/ Dextrose) 500 mls @ 18.75 mls/hr IV TITR [facility]; Protocol Last Titration: 04/24/19 08:27 Dose: 3 mcg/min, 11.25 mls/hr Lactulose (Cephulac (Oral Use)) 20 gm PO BID [facility] Last Admin: 04/24/19 09:56 Dose: 20 gm Midodrine (Proamatine -) 10 mg PO TID-MID [facility] Last Admin: 04/24/19 09:56 Dose: 10 mg Morphine Sulfate (Morphine Sulfate) 2 mg IVPUSH Q4H PRN PRN Reason: PAIN LEVEL 7 - 10 Last Admin: 04/24/19 06:22 Dose: 2 mg Mupirocin (Bactroban Ointment (For Decolonization) -) 1 applic NS BID [facility] Stop: 04/25/19 21:59 Last Admin: 04/24/19 09:57 Dose: 1 applic Ondansetron HCl (Zofran -) 4 mg PO TID [facility] Last Admin: 04/24/19 06:00 Dose: 4 mg Rifaximin (Xifaxan -) 550 mg PO BID [facility] Last Admin: 04/24/19 09:56 Dose: 550 mg - Objective Vital Signs: Vital Signs Temperature 97.4 F L 04/24/19 10:00 Pulse Rate 69 04/24/19 10:00 Respiratory Rate 14 04/24/19 10:00 Blood Pressure 112/61 04/24/19 10:00 O2 Sat by Pulse Oximetry (%) 98 04/23/19 20:32 Constitutional: Yes: Well Nourished, No Distress, Calm Cardiovascular: Yes: Regular Rate and Rhythm, Murmur (Grade III/) Respiratory: Yes: Regular, Diminished (BLL) Gastrointestinal: Yes: Normal Bowel Sounds, Soft, Hernia (ventral) Genitourinary: Yes: Laguerre Present Musculoskeletal: Yes: Muscle Weakness Extremities: Yes: WNL Edema: No Peripheral Pulses WNL: Yes Neurological: Yes: Alert, Confusion Psychiatric: Yes: Alert Labs: CBC, BMP 04/24/19 05:50 04/24/19 05:50 INR, PTT INR 1.72 (0.83-1.09) H 04/23/19 12:25 Problem List - Problems (1) Hypotension Assessment/Plan: -2/2 to Urosepsis -Maintain levophed to MAP >65mm Hg -ICU monitoring -Holding all cardiac meds+ HD -Cardiology+ ID+ Nephrology on board -Hold Furosemide for now Problems reviewed: Yes Code(s): I95.9 - HYPOTENSION, UNSPECIFIED (2) Acute renal failure Assessment/Plan: -2/2 to UTI -Nephrology on board -U/S renal shows no hydronephrosis and no obstruction -Monitor Cr Problems reviewed: Yes Code(s): N17.9 - ACUTE KIDNEY FAILURE, UNSPECIFIED (3) Coagulopathy Assessment/Plan: -2/2 to liver cirrhosis -Vit K + FFP as needed Problems reviewed: Yes Code(s): D68.9 - COAGULATION DEFECT, UNSPECIFIED (4) Hyponatremia Assessment/Plan: -improving -Nephrology on board -monitor trend Problems reviewed: Yes Code(s): E87.1 - HYPO-OSMOLALITY AND HYPONATREMIA (5) Liver cirrhosis Problems reviewed: Yes Code(s): K74.60 - UNSPECIFIED CIRRHOSIS OF LIVER (6) Sepsis Assessment/Plan: -2/2 UTI -IV abx -ID consult -afebrile -leukocytosis improved -Mental status improved -Cultures: Microbiology 04/20/19 13:28 Blood - Peripheral Venous Blood Culture - Preliminary NO GROWTH OBTAINED AFTER 96 HOURS, INCUBATION TO CONTINUE FOR 1 DAYS. 04/20/19 13:28 Blood - Peripheral Venous Blood Culture - Preliminary NO GROWTH OBTAINED AFTER 96 HOURS, INCUBATION TO CONTINUE FOR 1 DAYS. 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 04/20/19 13:28 Blood - Peripheral Venous Blood Culture - Preliminary NO GROWTH OBTAINED AFTER 96 HOURS, INCUBATION TO CONTINUE FOR 1 DAYS. 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
--- NOTE | 2019-04-24 10:48 | PN ---
Teaching Attending Note Name of Resident: Kiley Roth ATTENDING PHYSICIAN STATEMENT I saw and evaluated the patient. I reviewed the resident's note and discussed the case with the resident. I agree with the resident's findings and plan as documented. SUBJECTIVE: Pt seen and examined in the ICU. Remains on low dose levophed gtt. Denies shortness of breath or abdominal pain. OBJECTIVE: Vital Signs Period Temp Pulse Resp BP Sys/Bolaños Pulse Ox Last 24 Hr 97.4 F-100.5 F 60-85 13-23 100-137/43-74 98 Intake & Output 04/21/19 04/22/19 04/23/19 04/24/19 23:59 23:59 23:59 23:59 Intake Total 1556 1136 180 Output Total 330 600 350 Balance 1226 536 -170 Weight 74.843 kg 76.113 kg 75.16 kg Gen: mildly tachypneic with speaking Heart: RRR Lung: decreased breath sounds at the bases Abd: softly distended, +ascites Ext: + edema CBC, BMP 04/24/19 05:50 04/24/19 05:50 Active Medications Albuterol Sulfate (Ventolin 0.083% Nebulizer Soln -) 1 amp NEB Q6H PRN PRN Reason: SHORT OF BREATH/WHEEZING Last Admin: 04/22/19 18:39 Dose: 1 amp Chlorhexidine Gluconate (Hibiclens For Decolonization -) 1 applic TP HS [facility] Last Admin: 04/23/19 21:02 Dose: 1 applic Ergocalciferol (Drisdol -) 50,000 unit PO Q7D@1000 [facility] Furosemide (Lasix -) 40 mg PO BIDLASIX [facility] Ertapenem 0.5 gm/ Sodium (Chloride) 50 mls @ 100 mls/hr IVPB DAILY [facility] Last Admin: 04/24/19 09:55 Dose: 100 mls/hr Norepinephrine Bitartrate 8, (000 mcg/ Dextrose) 500 mls @ 18.75 mls/hr IV TITR [facility]; Protocol Last Titration: 04/24/19 08:27 Dose: 3 mcg/min, 11.25 mls/hr Lactulose (Cephulac (Oral Use)) 20 gm PO BID [facility] Last Admin: 04/24/19 09:56 Dose: 20 gm Midodrine (Proamatine -) 10 mg PO TID-MID [facility] Last Admin: 04/24/19 09:56 Dose: 10 mg Morphine Sulfate (Morphine Sulfate) 2 mg IVPUSH Q4H PRN PRN Reason: PAIN LEVEL 7 - 10 Last Admin: 04/24/19 06:22 Dose: 2 mg Mupirocin (Bactroban Ointment (For Decolonization) -) 1 applic NS BID [facility] Stop: 04/25/19 21:59 Last Admin: 04/24/19 09:57 Dose: 1 applic Ondansetron HCl (Zofran -) 4 mg PO TID [facility] Last Admin: 04/24/19 06:00 Dose: 4 mg Rifaximin (Xifaxan -) 550 mg PO BID [facility] Last Admin: 04/24/19 09:56 Dose: 550 mg ASSESSMENT AND PLAN: UTI Septic Shock Acute Kidney Injury Lactic Acidosis Hep C Cirrhosis Ascites Thrombocytopenia/Anemia h/o DVT - continue antibiotics - IVF to keep CVP 8-12 - titrate pressors to maintain MAP >65 - continue midodrine - monitor urine output, creatinine - monitor CBC - PO as tolerated - DVT prophylaxis - continue ICU monitoring critical care time spent in reviewing chart, evaluating patient and formulating plan 35 min
--- NOTE | 2019-04-24 10:51 | PN ---
Progress Note, [employer] - Note Progress Note: Selected Entries 04/23/19 04/23/19 04/23/19 00:00 02:00 04:00 Breakfast Temperature 99.5 F 99.3 F 99.2 F 04/23/19 04/23/19 04/23/19 06:00 08:00 10:00 Breakfast 50% Temperature 98.4 F 98.2 F 98.0 F 04/23/19 04/23/19 04/23/19 12:00 14:00 16:00 Breakfast Temperature 97.7 F 99.1 F 100.5 F H 04/23/19 04/23/19 04/23/19 18:00 20:00 22:00 Breakfast Temperature 98.6 F 98.1 F 98.8 F 04/24/19 04/24/19 04/24/19 00:00 02:00 06:00 Breakfast Temperature 97.6 F 98.1 F 97.6 F 04/24/19 10:00 Breakfast Temperature 97.4 F L Laboratory Tests 04/22/19 04/23/19 05:55 05:00 WBC 12.0 H 14.2 H Awake today, verbal, vocal wetness/dysphonic with h/o left vocal cord paralysis. Few teeth.Reduced respiratory capacity for speech purposes. Overtly tolerating puree/honey. Suggest MBS to determine most liberal diet pt can tolerate, once she is improved medically.
--- NOTE | 2019-04-24 12:19 | PN.GI ---
GI Progress Note Subjective: No change. Demented and unable to respond to questions. Scant urine output. - Objective Vital Signs: Vital Signs Temperature 97.4 F L 04/24/19 10:00 Pulse Rate 65 04/24/19 12:00 Respiratory Rate 11 04/24/19 12:00 Blood Pressure 138/52 L 04/24/19 12:00 O2 Sat by Pulse Oximetry (%) 98 04/24/19 09:00 Constitutional: No Distress ...Auscultate: Yes: Normoactive Bowel Sounds ...Palpate: Yes: Soft. No: Mass, Tenderness Labs: CBC, BMP 04/24/19 05:50 04/24/19 05:50 INR, PTT INR 1.72 (0.83-1.09) H 04/23/19 12:25 Assessment/Plan Continues on pressors with small increase in urine output; low urine sodium more consistent with pre-renal azotemia than hepatorenal syndrome. Continue with fluid and pressor support Continue antibiotics Continue with midodrine Follow mental status
--- NOTE | 2019-04-24 12:50 | PN ---
Progress Note, Physician History of Present Illness: Pt seen and examined at bedside. She is more awake and alert today. She has improved PO intake. Urine output is improving. - Current Medication List Current Medications: Active Medications Albuterol Sulfate (Ventolin 0.083% Nebulizer Soln -) 1 amp NEB Q6H PRN PRN Reason: SHORT OF BREATH/WHEEZING Last Admin: 04/22/19 18:39 Dose: 1 amp Chlorhexidine Gluconate (Hibiclens For Decolonization -) 1 applic TP HS [facility] Last Admin: 04/23/19 21:02 Dose: 1 applic Ergocalciferol (Drisdol -) 50,000 unit PO Q7D@1000 [facility] Furosemide (Lasix -) 40 mg PO BIDLASIX [facility] Ertapenem 0.5 gm/ Sodium (Chloride) 50 mls @ 100 mls/hr IVPB DAILY [facility] Last Admin: 04/24/19 09:55 Dose: 100 mls/hr Norepinephrine Bitartrate 8, (000 mcg/ Dextrose) 500 mls @ 18.75 mls/hr IV TITR [facility]; Protocol Last Titration: 04/24/19 08:27 Dose: 3 mcg/min, 11.25 mls/hr Lactulose (Cephulac (Oral Use)) 20 gm PO BID [facility] Last Admin: 04/24/19 09:56 Dose: 20 gm Midodrine (Proamatine -) 10 mg PO TID-MID [facility] Last Admin: 04/24/19 09:56 Dose: 10 mg Morphine Sulfate (Morphine Sulfate) 2 mg IVPUSH Q4H PRN PRN Reason: PAIN LEVEL 7 - 10 Last Admin: 04/24/19 06:22 Dose: 2 mg Mupirocin (Bactroban Ointment (For Decolonization) -) 1 applic NS BID [facility] Stop: 04/25/19 21:59 Last Admin: 04/24/19 09:57 Dose: 1 applic Ondansetron HCl (Zofran -) 4 mg PO TID [facility] Last Admin: 04/24/19 06:00 Dose: 4 mg Rifaximin (Xifaxan -) 550 mg PO BID [facility] Last Admin: 04/24/19 09:56 Dose: 550 mg - Objective Vital Signs: Vital Signs Temperature 97.4 F L 04/24/19 10:00 Pulse Rate 65 04/24/19 12:00 Respiratory Rate 11 04/24/19 12:00 Blood Pressure 138/52 L 04/24/19 12:00 O2 Sat by Pulse Oximetry (%) 98 04/24/19 09:00 Constitutional: Yes: Calm Eyes: Yes: Conjunctiva Clear HENT: Yes: Atraumatic Cardiovascular: Yes: S1, S2 Respiratory: Yes: On Nasal O2 Gastrointestinal: Yes: Soft Genitourinary: Yes: Laguerre Present Musculoskeletal: Yes: Muscle Weakness Edema: LUE: Trace, RUE: Trace Integumentary: Yes: Skin Tear Neurological: Yes: Oriented Psychiatric: Yes: Oriented Labs: CBC, BMP 04/24/19 05:50 04/24/19 05:50 INR, PTT INR 1.72 (0.83-1.09) H 04/23/19 12:25 Assessment/Plan Current Medications Generic Name Dose Route Start Last Admin Trade Name Freq PRN Reason Stop Dose Admin Albuterol Sulfate 1 amp 04/20/19 18:00 04/22/19 18:39 Ventolin 0.083% Nebulizer Soln - NEB 1 amp Q6H PRN Administration SHORT OF BREATH/WHEEZING Chlorhexidine Gluconate 1 applic 04/20/19 22:00 04/23/19 21:02 Hibiclens For Decolonization - TP 1 applic HS [facility] Administration Ergocalciferol 50,000 unit 04/27/19 10:00 Drisdol - PO Q7D@1000 [facility] Furosemide 40 mg 04/21/19 06:00 Lasix - PO BIDLASIX RADHA Ertapenem 0.5 gm/ Sodium 50 mls @ 100 mls/hr 04/22/19 10:00 04/24/19 09:55 Chloride IVPB 100 mls/hr DAILY [facility] Administration Norepinephrine Bitartrate 8, 500 mls @ 18.75 mls/hr 04/22/19 17:00 04/24/19 08:27 000 mcg/ Dextrose IV 3 mcg/min TITR [facility] 11.25 mls/hr Titration Protocol 5 MCG/MIN Lactulose 20 gm 04/24/19 10:00 04/24/19 09:56 Cephulac (Oral Use) PO 20 gm BID [facility] Administration Midodrine 10 mg 04/21/19 13:31 04/24/19 09:56 Proamatine - PO 10 mg TID-MID [facility] Administration Morphine Sulfate 2 mg 04/24/19 06:03 04/24/19 06:22 Morphine Sulfate IVPUSH 2 mg Q4H PRN Administration PAIN LEVEL 7 - 10 Mupirocin 1 applic 04/20/19 22:00 04/24/19 09:57 Bactroban Ointment (For Decolonization) - NS 04/25/19 21:59 1 applic BID [facility] Administration Ondansetron HCl 4 mg 04/20/19 22:00 04/24/19 06:00 Zofran - PO 4 mg TID [facility] Administration Rifaximin 550 mg 04/20/19 22:00 04/24/19 09:56 Xifaxan - PO 550 mg BID [facility] Administration Impression 1. DAVID 2. CKD 3. hep C cirrhosis 4. UTI 5. sepsis 6. ascites 7. hypervolemic hyponatremia 8. coagulopathy PLAN - urine output is improving - monitor renal function - will hold off HD for now and observe - mental status is improved - discussed with ICU team - follow renal workup
[2019-04-24 13:16] LABS: INR 1.8 (0.83-1.09); PROTHROMBIN TIME (PATIENT) 21.4 SEC (9.7-13.0)
[2019-04-24 13:18] LABS: ACTIVATED PTT 35.2 SECONDS (25.2-36.5)
[2019-04-24] MEDS: CHLORHEXIDINE GLUCONATE 4% CLEANSER FOR DECOLONIZATION TP SCH (22:02)
[2019-04-25] MEDS ORDERED: ONDANSETRON 4 MG TABLET PO PRN (06:28)
[2019-04-25] MEDS: ONDANSETRON 4 MG TABLET PO SCH (06:44)
[2019-04-25 06:59] LABS: BASO % 0.6 % (0-2.0); EOS % 1.2 % (0-4.5); HEMATOCRIT 25.8 % (32.4-45.2); HEMOGLOBIN 8.9 GM/dL (10.7-15.3); MCH 31.4 pg (25.7-33.7); MCHC 34.6 g/dl (32.0-36.0); MEAN CELL VOLUME 90.7 fl (80-96); MEAN PLT VOLUME 8.9 fl (7.5-11.1); NEUT % 82.2 % (42.8-82.8); PLATELET COUNT 96 K/MM3 (134-434); RBC 2.85 M/mm3 (3.60-5.2); RDW 18.3 % (11.6-15.6); WHITE BLOOD COUNT 10.9 K/mm3 (4.0-10.0)
[2019-04-25 07:08] LABS: INR 1.54 (0.83-1.09); PROTHROMBIN TIME (PATIENT) 18.2 SEC (9.7-13.0)
[2019-04-25 07:11] LABS: ACTIVATED PTT 32.7 SECONDS (25.2-36.5)
[2019-04-25 07:23] LABS: ALBUMIN 2.5 g/dl (3.4-5.0); BILIRUBIN,TOTAL 2.7 mg/dL (0.2-1); BLOOD UREA NITROGEN 102.5 mg/dL (7-18); CALCIUM 8.3 mg/dL (8.5-10.1); CREATININE 5.8 mg/dL (0.55-1.3); MAGNESIUM 2.1 mg/dL (1.8-2.4); PHOSPHOROUS 5.3 mg/dL (2.5-4.9); POTASSIUM 4.3 mmol/L (3.5-5.1); TOT PROT 5.6 g/dl (6.4-8.2)
--- NOTE | 2019-04-25 07:26 | PN ---
Physical Exam: SUBJECTIVE: Patient was lying in bed, tachycardic at 156 and SOB with labored breathing. Started on High Flow and EKG performed. OBJECTIVE: Vital Signs Period Temp Pulse Resp BP Sys/Bolaños Pulse Ox Last 24 Hr 97.4 F-97.8 F 62-103 11- 101-138/52-73 98-98 GENERAL: AOx2 (self and place), more alert than yesterday HEAD: Normal with no signs of trauma. EYES: PERRL, EOMI ENT: Dry mucous membranes NECK: Right IJ central line in place with surrounding ecchymosis LUNGS: B/L rhonchi, decreased air entry B/L HEART: RRR, 3/6 systolic murmur at RSB ABDOMEN: Caput [place], soft, nontender, nondistended, normoactive bowel sounds, no guarding, no rebound EXTREMITIES: 2+ non pitting edema B/L Laboratory Results - last 24 hr 04/22/19 04/23/19 04/23/19 10:30 05:00 05:00 PT with INR INR PTT (Actin FS) Iron TIBC Iron Saturation Unsaturated IBC Ferritin Creatine Kinase Troponin I Total Protein (PEP) 5.0 L Albumin (PEP) 2.4 L Globulin 2.6 Albumin/Globulin Ratio 0.9 Beta Globulins 0.6 L Vitamin B12 RADHA M-Tristen Not observed Double Strand DNA Ab <1 Blood Type A POSITIVE 04/24/19 04/24/19 04/24/19 05:41 12:30 12:30 PT with INR 21.40 H INR 1.80 H PTT (Actin FS) 35.2 Iron 83 TIBC 134 L Iron Saturation 61 H Unsaturated IBC 51 L Ferritin 346.0 Creatine Kinase 22 L Troponin I 0.04 Total Protein (PEP) Albumin (PEP) Globulin Albumin/Globulin Ratio Beta Globulins Vitamin B12 1847 H RADHA M-Tristen Double Strand DNA Ab Blood Type Active Medications Generic Name Dose Route Start Last Admin Trade Name Freq PRN Reason Stop Dose Admin Albuterol Sulfate 1 amp 04/20/19 18:00 04/22/19 18:39 Ventolin 0.083% Nebulizer Soln - NEB 1 amp Q6H PRN Administration SHORT OF BREATH/WHEEZING Chlorhexidine Gluconate 1 applic 04/20/19 22:00 04/24/19 22:02 Hibiclens For Decolonization - TP 1 applic HS [facility] Administration Ergocalciferol 50,000 unit 04/27/19 10:00 Drisdol - PO Q7D@1000 [facility] Famotidine 20 mg 04/25/19 10:00 Pepcid - PO DAILY [facility] Furosemide 40 mg 04/21/19 06:00 Lasix - PO BIDLASIX [facility] Ertapenem 0.5 gm/ Sodium 50 mls @ 100 mls/hr 04/22/19 10:00 04/24/19 09:55 Chloride IVPB 100 mls/hr DAILY [facility] Administration Norepinephrine Bitartrate 8, 500 mls @ 18.75 mls/hr 04/22/19 17:00 04/25/19 05:26 000 mcg/ Dextrose IV 0 mcg/min TITR RAD[facility] 0 mls/hr Titration Protocol 5 MCG/MIN Lactulose 20 gm 04/24/19 10:00 04/24/19 22:02 Cephulac (Oral Use) PO 20 gm BID [facility] Administration Midodrine 10 mg 04/21/19 13:31 04/24/19 19:43 Proamatine - PO 10 mg TID-MID [facility] Administration Morphine Sulfate 2 mg 04/24/19 06:03 04/24/19 22:02 Morphine Sulfate IVPUSH 2 mg Q4H PRN Administration PAIN LEVEL 7 - 10 Mupirocin 1 applic 04/20/19 22:00 04/24/19 22:03 Bactroban Ointment (For Decolonization) - NS 04/25/19 21:59 1 applic BID [facility] Administration Ondansetron HCl 4 mg 04/25/19 06:28 Zofran - PO TID PRN NAUSEA AND/OR VOMITING Rifaximin 550 mg 04/20/19 22:00 04/24/19 22:02 Xifaxan - PO 550 mg BID [facility] Administration ASSESSMENT/PLAN: 68 YO F with PMH of Dementia, Chronic UTI, HTN, Cirrhosis, Hepatitis C, CHF. Patient has also been experiencing worsening SOB and lower extremity edema. Admitted in the ICU for hemodynamic instability 2/2 hypotension. Was found to be tachycardic at 156 and SOB with labored breathing this morning. Started on High Flow, EKG performed, which initially showed new TWI V4-V6, not seen on repeat EKG, and Trop was negative. #Cardio - Tachycardic in 150s this morning - EKG performed, which initially showed new TWI V4-V6, not seen on repeat EKG - Trop 0.02 - Weaned off Levo in AM - Right IJ central line placed 04/22 - On Midodrine 10 mg TID #Respiratory - SOB with increased work of breathing this AM, started on High flow 60L/40FiO2 - CXR shows worsening B/L congestion compared to yesterday - Lasix 80mg dose given this AM due to congestive changes on CXR, 40mg IV BID started #GI - 2 FFPs overnight (7 total) - PT/INR: 18.2/1.54 - GI recc: HRS unlikely - urine sodium not consistent with HRS, can add octreotide if HRS confirmed - Lactulose 20og PRN Q6H started (changed from PO)/Rifaximin 550mg PO BID; target 3BM per day - Pepcid 20mg IVPB OD - SBP but it is unlikely as patient has broad abx coverage, infectious source from UTI, and improving white count. - May need tap if still concerned for SBP but will need to correct coagulopathy first #Renal - Lasix 80mg dose given this AM due to congestive changes on CXR, 40mg IV BID started - BUN/Cr: 102.5/5.8 - P-anca, C-anca, antiglomerular basement membrane, and DNA antibody serologies ordered as per Dr. Bagley. pending. - Avoid fluids and use pressor support for BP as needed - Renal USG shows no acute pathology #ID - Ucx: ESBL, Bloodcx negative - Ertapenem 0.5g OD as per ID, Day 4 (adjusted for renal clearance) - R/o SBP - will need a paracentesis #Heme - H&H: 8.9/25.8 - Stool occult blood test negative #Prophylaxis - SCDs - Holding chemical anticoagulation as INR is already elevated and will need paracentesis to r/o SBP #FEN - Dysphagia puree diet #Disposition - Continue to monitor in ICU due to tenuous respiratory status and hemodynamic instability Visit type - Emergency Visit Emergency Visit: Yes ED Registration Date: 04/20/19 Care time: The patient presented to the Emergency Department on the above date and was hospitalized for further evaluation of their emergent condition. - New Patient This patient is new to me today: No - Critical Care Critical Care patient: Yes Total Critical Care Time (in minutes): 39 Critical Care Statement: The care of this patient involved high complexity decision making to prevent further life threatening deterioration of the patient 's condition and/or to evaluate & treat vital organ system(s) failure or risk of failure. ATTENDING PHYSICIAN STATEMENT I saw and evaluated the patient. I reviewed the resident's note and discussed the case with the resident. I agree with the resident's findings and plan as documented. SUBJECTIVE: OBJECTIVE: ASSESSMENT AND PLAN:
[2019-04-25] MEDS ORDERED: METOPROLOL TARTRATE 5 MG/5 ML VIAL ONE (08:44)
[2019-04-25] MEDS ORDERED: METOPROLOL TARTRATE 5 MG/5 ML VIAL IVPUSH ONE (08:52)
[2019-04-25] MEDS ORDERED: FUROSEMIDE 40 MG/4 ML INJECTABLE VIAL IVPUSH ONE ×3 (08:55→17:00)
[2019-04-25 09:27] LABS: ARTERIAL BLOOD GAS PCO2 28.8 mmHg (35-45); ARTERIAL BLOOD GAS PO2 102 mmHg (80-100)
[2019-04-25 09:28] LABS: ALLENS TEST POSITIVE; ARTERIAL BLD GAS O2 SATURATION 97.7 % (95-98); ARTERIAL BLOOD GAS BASE EXCESS -4.2 meq/l (-2-2)
[2019-04-25] MEDS ORDERED: FAMOTIDINE 20 MG TABLET PO SCH (10:00)
[2019-04-25] MEDS ORDERED: PT OWN MED DRAWER 7, Y5N ONE ×3 (10:07→13:28)
[2019-04-25 10:09] LABS: ANTIGLOMERULAR BASEMENT MEN.AB 3 units (0-20)
[2019-04-25] MEDS: MUPIROCIN 2% TOPICAL OINTMENT FOR DECOLONIZATION NS SCH (10:50)
[2019-04-25] MEDS: RIFAXIMIN 550 MG TABLET (UD) PO SCH ×2 (11:00→21:15)
[2019-04-25] MEDS: LACTULOSE 20 GM/30 ML UDC (FOR ORAL USE ONLY) PO SCH ×2 (11:00→21:15)
[2019-04-25] MEDS: POLYETHYLENE GLYCOL 3350 119 GM BTL PO SCH ×2 (11:00→21:15)
[2019-04-25] MEDS: DOCUSATE SODIUM 100 MG CAPSULE (FP) PO SCH (11:00)
[2019-04-25] MEDS: MIDODRINE HCL 5 MG TABLET PO SCH ×3 (11:00→18:05)
--- NOTE | 2019-04-25 11:13 | PN ---
Teaching Attending Note Name of Resident: Eddie Ryder ATTENDING PHYSICIAN STATEMENT I saw and evaluated the patient. I reviewed the resident's note and discussed the case with the resident. I agree with the resident's findings and plan as documented. SUBJECTIVE: Patient seen and examined in the ICU. Increased WOB from this AM. HFOT needed to be initiated during rounds due to respiratory distress. Low dose levophed drip was stopped at 5 AM. Awake and responsive but confused. Some dry cough noted. Intake & Output 04/22/19 04/23/19 04/24/19 04/25/19 23:59 23:59 23:59 23:59 Intake Total 1556 1136 380 104 Output Total 330 600 450 400 Balance 1226 536 -70 -296 Weight 165 lb 167 lb 12.8 oz 165 lb 11.2 oz 165 lb 9.6 oz Last Vital Signs Temp Pulse Resp BP Pulse Ox 98.6 F 84 14 119/62 98 04/25/19 10:00 04/25/19 10:00 04/25/19 10:00 04/25/19 10:00 04/25/19 09:00 Active Medications Albuterol Sulfate (Ventolin 0.083% Nebulizer Soln -) 1 amp NEB Q6H PRN PRN Reason: SHORT OF BREATH/WHEEZING Last Admin: 04/22/19 18:39 Dose: 1 amp Chlorhexidine Gluconate (Hibiclens For Decolonization -) 1 applic TP HS [facility] Last Admin: 04/24/19 22:02 Dose: 1 applic Docusate Sodium (Colace -) 100 mg PO DAILY [facility] Ergocalciferol (Drisdol -) 50,000 unit PO Q7D@1000 [facility] Famotidine (Pepcid -) 20 mg PO DAILY [facility] Furosemide (Lasix -) 40 mg PO BIDLASIX [facility] Ertapenem 0.5 gm/ Sodium (Chloride) 50 mls @ 100 mls/hr IVPB DAILY [facility] Last Admin: 04/24/19 09:55 Dose: 100 mls/hr Norepinephrine Bitartrate 8, (000 mcg/ Dextrose) 500 mls @ 18.75 mls/hr IV TITR [facility]; Protocol Last Titration: 04/25/19 05:26 Dose: 0 mcg/min, 0 mls/hr Lactulose (Cephulac (Oral Use)) 20 gm PO BID [facility] Last Admin: 04/24/19 22:02 Dose: 20 gm Midodrine (Proamatine -) 10 mg PO TID-MID [facility] Last Admin: 04/24/19 19:43 Dose: 10 mg Morphine Sulfate (Morphine Sulfate) 2 mg IVPUSH Q4H PRN PRN Reason: PAIN LEVEL 7 - 10 Last Admin: 04/24/19 22:02 Dose: 2 mg Mupirocin (Bactroban Ointment (For Decolonization) -) 1 applic NS BID [facility] Stop: 04/25/19 21:59 Last Admin: 04/25/19 10:50 Dose: 1 applic Ondansetron HCl (Zofran -) 4 mg PO TID PRN PRN Reason: NAUSEA AND/OR VOMITING Polyethylene Glycol (Miralax (For Daily Use) -) 17 gm PO BID [facility] Rifaximin (Xifaxan -) 550 mg PO BID [facility] Last Admin: 04/24/19 22:02 Dose: 550 mg Senna (Senna -) 1 tab PO HS [facility] Gen: Awake and responsive but confused, mildly tachypneic with speaking Heart: RRR Lung: decreased breath sounds at the bases, bilateral scattered rhonchi Abd: softly distended, +ascites Ext: + edema Laboratory Results - last 24 hr 04/22/19 04/23/19 04/23/19 10:30 05:00 05:00 WBC RBC Hgb Hct MCV MCH MCHC RDW Plt Count MPV Absolute Neuts (auto) Neutrophils % Lymphocytes % Monocytes % Eosinophils % Basophils % Nucleated RBC % PT with INR INR PTT (Actin FS) Anticoagulation Therapy Puncture Site ABG pH ABG pCO2 at Pt Temp ABG pO2 at Pt Temp ABG HCO3 ABG O2 Sat (Measured) ABG O2 Content ABG Base Excess Matt Test O2 Delivery Device Oxygen Flow Rate Vent Mode Vent Rate Mechanical Rate Pressure Support Vent Sodium Potassium Chloride Carbon Dioxide Anion Gap BUN Creatinine Est GFR (CKD-EPI)AfAm Est GFR (CKD-EPI)NonAf Random Glucose Calcium Phosphorus Magnesium Iron TIBC Iron Saturation Unsaturated IBC Ferritin Total Bilirubin AST ALT Alkaline Phosphatase Troponin I Total Protein Total Protein (PEP) 5.0 L Albumin Albumin (PEP) 2.4 L Globulin 2.6 Albumin/Globulin Ratio 0.9 Beta Globulins 0.6 L Vitamin B12 RADHA M-Tristen Not observed Glomerular Base Memb Ab 3 Blood Type A POSITIVE 11/06/19 11/06/19 11/07/19 12:30 12:30 05:40 WBC 10.9 H RBC 2.85 L Hgb 8.9 L Hct 25.8 L MCV 90.7 MCH 31.4 MCHC 34.6 RDW 18.3 H Plt Count 96 L D MPV 8.9 Absolute Neuts (auto) 9.0 H Neutrophils % 82.2 Lymphocytes % 8.0 Monocytes % 8.0 Eosinophils % 1.2 Basophils % 0.6 Nucleated RBC % 0 PT with INR 21.40 H INR 1.80 H PTT (Actin FS) 35.2 Anticoagulation Therapy Puncture Site ABG pH ABG pCO2 at Pt Temp ABG pO2 at Pt Temp ABG HCO3 ABG O2 Sat (Measured) ABG O2 Content ABG Base Excess Matt Test O2 Delivery Device Oxygen Flow Rate Vent Mode Vent Rate Mechanical Rate Pressure Support Vent Sodium Potassium Chloride Carbon Dioxide Anion Gap BUN Creatinine Est GFR (CKD-EPI)AfAm Est GFR (CKD-EPI)NonAf Random Glucose Calcium Phosphorus Magnesium Iron 83 TIBC 134 L Iron Saturation 61 H Unsaturated IBC 51 L Ferritin 346.0 Total Bilirubin AST ALT Alkaline Phosphatase Troponin I Total Protein Total Protein (PEP) Albumin Albumin (PEP) Globulin Albumin/Globulin Ratio Beta Globulins Vitamin B12 1847 H RADHA M-Tristen Glomerular Base Memb Ab Blood Type 04/25/19 04/25/19 04/25/19 05:40 06:00 09:00 WBC RBC Hgb Hct MCV MCH MCHC RDW Plt Count MPV Absolute Neuts (auto) Neutrophils % Lymphocytes % Monocytes % Eosinophils % Basophils % Nucleated RBC % PT with INR 18.20 H INR 1.54 H PTT (Actin FS) 32.7 Anticoagulation Therapy No Result Required. Puncture Site Left radial ABG pH 7.40 ABG pCO2 at Pt Temp 28.8 L ABG pO2 at Pt Temp 102 H ABG HCO3 18.9 L ABG O2 Sat (Measured) 97.7 ABG O2 Content 11.7 ABG Base Excess -4.2 L Matt Test Positive O2 Delivery Device No Result Required. Oxygen Flow Rate Yes Vent Mode No Result Required. Vent Rate No Result Required. Mechanical Rate No Result Required. Pressure Support Vent No Result Required. Sodium 135 L Potassium 4.3 Chloride 103 Carbon Dioxide 22 Anion Gap 11 BUN 102.5 H Creatinine 5.8 H Est GFR (CKD-EPI)AfAm 8.00 Est GFR (CKD-EPI)NonAf 6.91 Random Glucose 85 Calcium 8.3 L Phosphorus 5.3 H Magnesium 2.1 Iron TIBC Iron Saturation Unsaturated IBC Ferritin Total Bilirubin 2.7 H AST 49 H ALT 24 Alkaline Phosphatase 109 Troponin I Total Protein 5.6 L Total Protein (PEP) Albumin 2.5 L Albumin (PEP) Globulin Albumin/Globulin Ratio Beta Globulins Vitamin B12 RADHA M-Tristen Glomerular Base Memb Ab Blood Type 04/25/19 09:30 WBC RBC Hgb Hct MCV MCH MCHC RDW Plt Count MPV Absolute Neuts (auto) Neutrophils % Lymphocytes % Monocytes % Eosinophils % Basophils % Nucleated RBC % PT with INR INR PTT (Actin FS) Anticoagulation Therapy Puncture Site ABG pH ABG pCO2 at Pt Temp ABG pO2 at Pt Temp ABG HCO3 ABG O2 Sat (Measured) ABG O2 Content ABG Base Excess Matt Test O2 Delivery Device Oxygen Flow Rate Vent Mode Vent Rate Mechanical Rate Pressure Support Vent Sodium Potassium Chloride Carbon Dioxide Anion Gap BUN Creatinine Est GFR (CKD-EPI)AfAm Est GFR (CKD-EPI)NonAf Random Glucose Calcium Phosphorus Magnesium Iron TIBC Iron Saturation Unsaturated IBC Ferritin Total Bilirubin AST ALT Alkaline Phosphatase Troponin I 0.02 Total Protein Total Protein (PEP) Albumin Albumin (PEP) Globulin Albumin/Globulin Ratio Beta Globulins Vitamin B12 RADHA M-Tristen Glomerular Base Memb Ab Blood Type ASSESSMENT AND PLAN: UTI Septic Shock Acute Respiratory Failure Requiring HFOT Acute Kidney Injury Lactic Acidosis Hep C Cirrhosis Ascites Thrombocytopenia/Anemia h/o DVT - continue antibiotics per ID - Monitor off pressors if MAP is > 65 - continue midodrine - monitor urine output, creatinine - monitor CBC - PO as tolerated - DVT prophylaxis - HFOT for increased WOB - continue ICU monitoring for tenuous respiratory status and hemodynamics Dr Valenzuela Critical care time spent in reviewing chart, evaluating patient and formulating plan 35 min
--- NOTE | 2019-04-25 11:45 | PN ---
Progress Note, Physician Chief Complaint: patient seen and examined in ICU responds to her name by turning her head towards me but not speaking to me earlier today went into rapid afib was given lopressor and lasix and put on High flow oxygen and converted to sinus rhythm pressors stopped - Current Medication List Current Medications: Active Medications Albuterol Sulfate (Ventolin 0.083% Nebulizer Soln -) 1 amp NEB Q6H PRN PRN Reason: SHORT OF BREATH/WHEEZING Last Admin: 04/22/19 18:39 Dose: 1 amp Chlorhexidine Gluconate (Hibiclens For Decolonization -) 1 applic TP HS [facility] Last Admin: 04/24/19 22:02 Dose: 1 applic Docusate Sodium (Colace -) 100 mg PO DAILY [facility] Last Admin: 04/25/19 11:00 Dose: Not Given Ergocalciferol (Drisdol -) 50,000 unit PO Q7D@1000 [facility] Furosemide (Lasix -) 40 mg PO BIDLASIX [facility] Furosemide (Lasix Injection -) 40 mg IVPUSH ONCE ONE Stop: 04/25/19 17:01 Furosemide (Lasix Injection -) 40 mg IVPUSH BID@0600,1400 [facility] Ertapenem 0.5 gm/ Sodium (Chloride) 50 mls @ 100 mls/hr IVPB DAILY [facility] Last Admin: 04/24/19 09:55 Dose: 100 mls/hr Norepinephrine Bitartrate 8, (000 mcg/ Dextrose) 500 mls @ 18.75 mls/hr IV TITR [facility]; Protocol Last Titration: 04/25/19 05:26 Dose: 0 mcg/min, 0 mls/hr Famotidine/Sodium Chloride (Pepcid 20 Mg Premixed Ivpb -) 20 mg in 50 mls @ 100 mls/hr IVPB BID [facility] Lactulose (Cephulac (Oral Use)) 20 gm PO BID [facility] Last Admin: 04/25/19 11:00 Dose: Not Given Lactulose (Cephulac (Rectal Use)) 200 gm MT Q6H [facility] Midodrine (Proamatine -) 10 mg PO TID-MID [facility] Last Admin: 04/25/19 11:00 Dose: Not Given Morphine Sulfate (Morphine Sulfate) 2 mg IVPUSH Q4H PRN PRN Reason: PAIN LEVEL 7 - 10 Last Admin: 04/24/19 22:02 Dose: 2 mg Mupirocin (Bactroban Ointment (For Decolonization) -) 1 applic NS BID [facility] Stop: 04/25/19 21:59 Last Admin: 04/25/19 10:50 Dose: 1 applic Ondansetron HCl (Zofran -) 4 mg PO TID PRN PRN Reason: NAUSEA AND/OR VOMITING Polyethylene Glycol (Miralax (For Daily Use) -) 17 gm PO BID [facility] Last Admin: 04/25/19 11:00 Dose: Not Given Rifaximin (Xifaxan -) 550 mg PO BID [facility] Last Admin: 04/25/19 11:00 Dose: Not Given Senna (Senna -) 1 tab PO HS [facility] - Objective Vital Signs: Vital Signs Temperature 98.6 F 04/25/19 10:00 Pulse Rate 84 04/25/19 10:00 Respiratory Rate 14 04/25/19 10:00 Blood Pressure 119/62 04/25/19 10:00 O2 Sat by Pulse Oximetry (%) 98 04/25/19 09:00 Constitutional: Yes: Calm, Thin Cardiovascular: Yes: Regular Rate and Rhythm, S1, S2 Respiratory: Yes: CTA Bilaterally, Other (high flow oxygen) Gastrointestinal: Yes: Normal Bowel Sounds, Soft Extremities: Yes: Other (scd) Labs: CBC, BMP 04/25/19 05:40 04/25/19 06:00 INR, PTT INR 1.54 (0.83-1.09) H 04/25/19 05:40 Problem List - Problems (1) Respiratory distress Assessment/Plan: with rapid afib now in sinus iv lopressor and iv lasix high flow oxygen Code(s): R06.03 - ACUTE RESPIRATORY DISTRESS (2) Sepsis Assessment/Plan: on ertrapenem Microbiology 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 Coli Esbl [employer] wbc count trending down leukocytosis improving and mental status improve off pressors Code(s): A41.9 - SEPSIS, UNSPECIFIED ORGANISM (3) Acute renal failure Assessment/Plan: renal sono no hydronephrosis and no obstruction creatinine increased from 1.4 in last admission to 5.5 renal on board, monitor renal urine output Code(s): N17.9 - ACUTE KIDNEY FAILURE, UNSPECIFIED (4) Coagulopathy Assessment/Plan: vitamin K and FFP as needed secondary to cirrhosis Code(s): D68.9 - COAGULATION DEFECT, UNSPECIFIED (5) Liver cirrhosis Assessment/Plan: rifaximin lacutlose Code(s): K74.60 - UNSPECIFIED CIRRHOSIS OF LIVER (6) Dysphagia Assessment/Plan: seen by swallow team dysphagia pureed with honey thick Code(s): R13.10 - DYSPHAGIA, UNSPECIFIED (7) Hyponatremia Assessment/Plan: hepato renal syndrome monitor sodium renal on board Code(s): E87.1 - HYPO-OSMOLALITY AND HYPONATREMIA (8) DVT (deep venous thrombosis) Assessment/Plan: dc eliquis for now Code(s): I82.409 - ACUTE EMBOLISM AND THOMBOS UNSP DEEP VN UNSP LOWER EXTREMITY (9) Hypotension Assessment/Plan: keep MAP > 55 off presors today midodrine Code(s): I95.9 - HYPOTENSION, UNSPECIFIED
--- NOTE | 2019-04-25 11:47 | EKG ---
Test Reason : Blood Pressure : / mmHG Vent. Rate : 089 BPM Atrial Rate : 089 BPM P-R Int : 144 ms QRS Dur : 080 ms QT Int : 382 ms P-R-T Axes : 060 019 013 degrees QTc Int : 464 ms NORMAL SINUS RHYTHM CANNOT RULE OUT ANTERIOR INFARCT (CITED ON OR BEFORE 25-APR-2019) ABNORMAL ECG WHEN COMPARED WITH ECG OF 25-APR-2019 08:39, SINUS RHYTHM HAS REPLACED ATRIAL FIBRILLATION VENT. RATE HAS DECREASED BY 44 BPM T WAVE INVERSION NO LONGER EVIDENT IN INFERIOR LEADS T WAVE INVERSION NO LONGER EVIDENT IN ANTERIOR LEADS Confirmed by CLAIRE WASHINGTON MD ([id number]) on 04/25/2019 11:47:38 AM Referred By: Confirmed By:CLAIRE WASHINGTON MD
--- NOTE | 2019-04-25 11:48 | EKG ---
Test Reason : Blood Pressure : / mmHG Vent. Rate : 133 BPM Atrial Rate : 107 BPM P-R Int : 000 ms QRS Dur : 078 ms QT Int : 332 ms P-R-T Axes : 000 025 -44 degrees QTc Int : 494 ms ATRIAL FIBRILLATION WITH RAPID VENTRICULAR RESPONSE CANNOT RULE OUT ANTERIOR INFARCT , AGE UNDETERMINED ABNORMAL ECG WHEN COMPARED WITH ECG OF 24-APR-2019 02:08, ATRIAL FIBRILLATION HAS REPLACED SINUS RHYTHM VENT. RATE HAS INCREASED BY 66 BPM T WAVE INVERSION NOW EVIDENT IN INFERIOR LEADS T WAVE INVERSION MORE EVIDENT IN ANTERIOR LEADS Confirmed by PADMINI ARITA, CLAIRE ([id number]) on 04/25/2019 11:47:52 AM Referred By: Confirmed By:CLAIRE WASHINGTON MD
[2019-04-25] MEDS: ERTAPENEM SODIUM 0.5 GM in SODIUM CHLORIDE 50 ML IVPB SCH (12:14)
[2019-04-25] MEDS ORDERED: METOPROLOL TARTRATE 5 MG/5 ML VIAL IVPUSH PRN (12:53)
[2019-04-25] MEDS ORDERED: LACTULOSE 20 GM/30 ML UDC (FOR RECTAL USE ONLY) PR SCH ×2 (13:00)
[2019-04-25] MEDS ORDERED: LACTULOSE 20 GM/30 ML UDC (FOR RECTAL USE ONLY) PR ONE (13:38)
[2019-04-25 14:07] LABS: ATYPICAL pANCA <1:20 titer (Neg:<1:20); C-ANCA <1:20 titer (Neg:<1:20)
--- NOTE | 2019-04-25 14:09 | PN ---
Progress Note (short form) - Note Progress Note: more lethargic today on hiflow oxygen Vital Signs Period Temp Pulse Resp BP Sys/Bolaños Pulse Ox Last 24 Hr 97.4 F-98.6 F 69-156 13-17 99-134/43-83 98-98 cor-rrr lungs decreased bs at bases abd soft,nt ext multiple ecchymoses and skin tears CBC, BMP 04/25/19 05:40 04/25/19 06:00 cxray congestion - unchanged Current Medications Albuterol Sulfate (Ventolin 0.083% Nebulizer Soln -) 1 amp NEB Q6H PRN PRN Reason: SHORT OF BREATH/WHEEZING Last Admin: 04/22/19 18:39 Dose: 1 amp Chlorhexidine Gluconate (Hibiclens For Decolonization -) 1 applic TP HS [facility] Last Admin: 04/23/19 21:02 Dose: 1 applic Ergocalciferol (Drisdol -) 50,000 unit PO Q7D@1000 [facility] Furosemide (Lasix -) 40 mg PO BIDLASIX [facility] Ertapenem 0.5 gm/ Sodium (Chloride) 50 mls @ 100 mls/hr IVPB DAILY [facility] Last Admin: 04/23/19 09:30 Dose: 100 mls/hr Norepinephrine Bitartrate 8, (000 mcg/ Dextrose) 500 mls @ 18.75 mls/hr IV TITR [facility]; Protocol Last Titration: 04/24/19 08:27 Dose: 3 mcg/min, 11.25 mls/hr Lactulose (Cephulac (Oral Use)) 20 gm PO BID [facility] Midodrine (Proamatine -) 10 mg PO TID-MID [facility] Last Admin: 04/23/19 17:00 Dose: 10 mg Morphine Sulfate (Morphine Sulfate) 2 mg IVPUSH Q4H PRN PRN Reason: PAIN LEVEL 7 - 10 Last Admin: 04/24/19 06:22 Dose: 2 mg Mupirocin (Bactroban Ointment (For Decolonization) -) 1 applic NS BID [facility] Stop: 04/25/19 21:59 Last Admin: 04/23/19 21:02 Dose: 1 applic Ondansetron HCl (Zofran -) 4 mg PO TID [facility] Last Admin: 04/24/19 06:00 Dose: 4 mg Rifaximin (Xifaxan -) 550 mg PO BID [facility] Last Admin: 04/23/19 21:01 Dose: 550 mg a/p sepsis-off pressors ecoli ESBL UTI-continue ertapenem cannot r/o SBP- ertapenem should be adequate coverage renal failure- cirrhosis recent DVT coagulopathy thrombocytopenia continue antibioitcs day #5
[2019-04-25] MEDS ORDERED: FAMOTIDINE 20 MG/50 ML IVPB 20 MG/50 ML MG IVPB SCH ×2 (14:45→22:00)
--- NOTE | 2019-04-25 16:13 | PN ---
Progress Note, Physician History of Present Illness: Pt seen and examined at bedside. She went into a-fib this morning. She was also found to be in overload. - Current Medication List Current Medications: Active Medications Albuterol Sulfate (Ventolin 0.083% Nebulizer Soln -) 1 amp NEB Q6H PRN PRN Reason: SHORT OF BREATH/WHEEZING Last Admin: 04/22/19 18:39 Dose: 1 amp Chlorhexidine Gluconate (Hibiclens For Decolonization -) 1 applic TP HS [facility] Last Admin: 04/24/19 22:02 Dose: 1 applic Docusate Sodium (Colace -) 100 mg PO DAILY [facility] Last Admin: 04/25/19 11:00 Dose: Not Given Ergocalciferol (Drisdol -) 50,000 unit PO Q7D@1000 [facility] Furosemide (Lasix -) 40 mg PO BIDLASIX [facility] Furosemide (Lasix Injection -) 40 mg IVPUSH ONCE ONE Stop: 04/25/19 17:01 Furosemide (Lasix Injection -) 40 mg IVPUSH BID@0600,1400 [facility] Ertapenem 0.5 gm/ Sodium (Chloride) 50 mls @ 100 mls/hr IVPB DAILY [facility] Last Admin: 04/25/19 12:14 Dose: 100 mls/hr Famotidine/Sodium Chloride (Pepcid 20 Mg Premixed Ivpb -) 20 mg in 50 mls @ 100 mls/hr IVPB Q48H [facility] Last Admin: 04/25/19 15:04 Dose: 100 mls/hr Norepinephrine Bitartrate 8, (000 mcg/ Dextrose) 500 mls @ 18.75 mls/hr IV TITR [facility]; Protocol Lactulose (Cephulac (Oral Use)) 20 gm PO BID [facility] Last Admin: 04/25/19 11:00 Dose: Not Given Metoprolol Tartrate (Lopressor Injection -) 5 mg IVPUSH ONCE PRN PRN Reason: TACHYCARDIA Midodrine (Proamatine -) 10 mg PO TID-MID [facility] Last Admin: 04/25/19 15:00 Dose: Not Given Morphine Sulfate (Morphine Sulfate) 2 mg IVPUSH Q4H PRN PRN Reason: PAIN LEVEL 7 - 10 Last Admin: 04/24/19 22:02 Dose: 2 mg Mupirocin (Bactroban Ointment (For Decolonization) -) 1 applic NS BID [facility] Stop: 04/25/19 21:59 Last Admin: 04/25/19 10:50 Dose: 1 applic Ondansetron HCl (Zofran -) 4 mg PO TID PRN PRN Reason: NAUSEA AND/OR VOMITING Polyethylene Glycol (Miralax (For Daily Use) -) 17 gm PO BID [facility] Last Admin: 04/25/19 11:00 Dose: Not Given Rifaximin (Xifaxan -) 550 mg PO BID [facility] Last Admin: 04/25/19 11:00 Dose: Not Given Senna (Senna -) 1 tab PO HS [facility] - Objective Vital Signs: Vital Signs Temperature 99.8 F H 04/25/19 14:00 Pulse Rate 80 04/25/19 14:00 Respiratory Rate 12 04/25/19 14:00 Blood Pressure 98/50 L 04/25/19 14:00 O2 Sat by Pulse Oximetry (%) 98 04/25/19 09:00 Constitutional: Yes: Calm Eyes: Yes: Conjunctiva Clear Cardiovascular: Yes: S1, S2 Respiratory: Yes: On Nasal O2, Rhonchi Gastrointestinal: Yes: Soft Genitourinary: Yes: Laguerre Present Musculoskeletal: Yes: Muscle Weakness Edema: Yes Edema: LLE: Trace, RLE: Trace Integumentary: Yes: Skin Tear Neurological: Yes: Oriented Psychiatric: Yes: Oriented Labs: CBC, BMP 04/25/19 05:40 04/25/19 06:00 INR, PTT INR 1.54 (0.83-1.09) H 04/25/19 05:40 Assessment/Plan Current Medications Generic Name Dose Route Start Last Admin Trade Name Freq PRN Reason Stop Dose Admin Albuterol Sulfate 1 amp 04/20/19 18:00 04/22/19 18:39 Ventolin 0.083% Nebulizer Soln - NEB 1 amp Q6H PRN Administration SHORT OF BREATH/WHEEZING Chlorhexidine Gluconate 1 applic 04/20/19 22:00 04/24/19 22:02 Hibiclens For Decolonization - TP 1 applic HS [facility] Administration Docusate Sodium 100 mg 04/25/19 10:00 04/25/19 11:00 Colace - PO Not Given DAILY [facility] Ergocalciferol 50,000 unit 04/27/19 10:00 Drisdol - PO Q7D@1000 [facility] Furosemide 40 mg 04/21/19 06:00 Lasix - PO BIDLASIX [facility] Furosemide 40 mg 04/25/19 17:00 Lasix Injection - IVPUSH 04/25/19 17:01 ONCE ONE Furosemide 40 mg 04/26/19 06:00 Lasix Injection - IVPUSH BID@0600,1400 [facility] Ertapenem 0.5 gm/ Sodium 50 mls @ 100 mls/hr 04/22/19 10:00 04/25/19 12:14 Chloride IVPB 100 mls/hr DAILY [facility] Administration Famotidine/Sodium Chloride 20 mg in 50 mls @ 100 mls/hr 04/25/19 14:45 15:04 Pepcid 20 Mg Premixed Ivpb - IVPB 100 mls/hr Q48H [facility] Administration Norepinephrine Bitartrate 8, 500 mls @ 18.75 mls/hr 04/25/19 16:00 000 mcg/ Dextrose IV TITR [facility] Protocol 5 MCG/MIN Lactulose 20 gm 04/24/19 10:00 04/25/19 11:00 Cephulac (Oral Use) PO Not Given BID [facility] Metoprolol Tartrate 5 mg 04/25/19 12:53 Lopressor Injection - IVPUSH ONCE PRN TACHYCARDIA Midodrine 10 mg 04/21/19 13:31 04/25/19 15:00 Proamatine - PO Not Given TID-MID [facility] Morphine Sulfate 2 mg 04/24/19 06:03 04/24/19 22:02 Morphine Sulfate IVPUSH 2 mg Q4H PRN Administration PAIN LEVEL 7 - 10 Mupirocin 1 applic 04/20/19 22:00 04/25/19 10:50 Bactroban Ointment (For Decolonization) - NS 04/25/19 21:59 1 applic BID [facility] Administration Ondansetron HCl 4 mg 04/25/19 06:28 Zofran - PO TID PRN NAUSEA AND/OR VOMITING Polyethylene Glycol 17 gm 04/25/19 10:00 04/25/19 11:00 Miralax (For Daily Use) - PO Not Given BID [facility] Rifaximin 550 mg 04/20/19 22:00 04/25/19 11:00 Xifaxan - PO Not Given BID [facility] Senna 1 tab 04/25/19 22:00 Senna - PO HS [facility] Laboratory Tests 04/21/19 04/22/19 04/23/19 05:55 05:55 05:00 RAD[facility] M-Tristen Not observed Serum Cryoglobulins Pending Rheumatoid Factor < 10.0 JOSE A Screen Negative c-ANCA Proteinase 3 (PR3) p-ANCA Atypical p-ANCA Myeloperoxidase Ab Double Strand DNA Ab Glomerular Base Memb Ab Complement C3 Complement C4 04/23/19 04/24/19 05:00 05:41 RADHA M-Tristen Serum Cryoglobulins Rheumatoid Factor JOSE A Screen c-ANCA <1:20 Proteinase 3 (PR3) <3.5 p-ANCA <1:20 Atypical p-ANCA <1:20 Myeloperoxidase Ab <9.0 Double Strand DNA Ab <1 Glomerular Base Memb Ab 3 Complement C3 Pending Complement C4 Pending Impression 1. DAVID 2. CKD 3. hep C cirrhosis 4. UTI 5. sepsis 6. ascites 7. hypervolemic hyponatremia 8. 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
[2019-04-25] MEDS: NOREPINEPHRINE BITARTRATE 8,000 MCG in DEXTROSE 5%-WATER - 492 ML IV SCH ×2 (16:37→20:41)
[2019-04-25] MEDS: SENNOSIDES 8.6MG TABLET (FP) PO SCH (21:15)
[2019-04-25] MEDS: CHLORHEXIDINE GLUCONATE 4% CLEANSER FOR DECOLONIZATION TP SCH (22:42)
[2019-04-26] MEDS: FUROSEMIDE 40 MG/4 ML INJECTABLE VIAL IVPUSH SCH ×2 (05:33→15:00)
[2019-04-26 06:53] LABS: BASO % 0.5 % (0-2.0); EOS % 1.4 % (0-4.5); HEMOGLOBIN 8.5 GM/dL (10.7-15.3); LYMPH % 9.7 % (8-40); MCH 30.9 pg (25.7-33.7); MCHC 33.9 g/dl (32.0-36.0); MEAN CELL VOLUME 91.3 fl (80-96); MEAN PLT VOLUME 8.7 fl (7.5-11.1); MONO % 11.2 % (3.8-10.2); NEUT % 77.2 % (42.8-82.8); PLATELET COUNT 98 K/MM3 (134-434); RBC 2.74 M/mm3 (3.60-5.2); RDW 18.5 % (11.6-15.6); WHITE BLOOD COUNT 11.4 K/mm3 (4.0-10.0)
[2019-04-26 07:21] LABS: ALBUMIN 2.1 g/dl (3.4-5.0); BILIRUBIN,TOTAL 2.6 mg/dL (0.2-1); BLOOD UREA NITROGEN 103.9 mg/dL (7-18); CREATININE 5.8 mg/dL (0.55-1.3); MAGNESIUM 2.1 mg/dL (1.8-2.4); PHOSPHOROUS 5.9 mg/dL (2.5-4.9); TOT PROT 5.1 g/dl (6.4-8.2)
--- NOTE | 2019-04-26 07:30 | PN ---
Physical Exam: SUBJECTIVE: Patient seen and examined by the bedside. Awake but not oriented. OBJECTIVE: Vital Signs Period Temp Pulse Resp BP Sys/Bolaños Pulse Ox Last 24 Hr 97.7 F-99.8 F 67-156 10-17 98-137/43-83 97-98 GENERAL: Awake, maintains eye contact, but unable to answer questions. HEAD: Normal with no signs of trauma. EYES: PERRL, EOMI ENT: Dry mucous membranes NECK: Right IJ central line in place with surrounding ecchymosis LUNGS: B/L rhonchi, decreased air entry B/L HEART: RRR, 3/6 holosystolic murmur ABDOMEN: [place], soft, nontender, nondistended, normoactive bowel sounds, no guarding, no rebound EXTREMITIES: 2+ non pitting edema B/L Laboratory Results - last 24 hr 04/23/19 04/24/19 04/25/19 05:00 05:41 05:40 WBC 10.9 H RBC 2.85 L Hgb 8.9 L Hct 25.8 L MCV 90.7 MCH 31.4 MCHC 34.6 RDW 18.3 H Plt Count 96 L D MPV 8.9 Absolute Neuts (auto) 9.0 H Neutrophils % 82.2 Lymphocytes % 8.0 Monocytes % 8.0 Eosinophils % 1.2 Basophils % 0.6 Nucleated RBC % 0 Anticoagulation Therapy Puncture Site ABG pH ABG pCO2 at Pt Temp ABG pO2 at Pt Temp ABG HCO3 ABG O2 Sat (Measured) ABG O2 Content ABG Base Excess Matt Test O2 Delivery Device Oxygen Flow Rate Vent Mode Vent Rate Mechanical Rate Pressure Support Vent Sodium Potassium Chloride Carbon Dioxide Anion Gap BUN Creatinine Est GFR (CKD-EPI)AfAm Est GFR (CKD-EPI)NonAf Random Glucose Calcium Phosphorus Magnesium Total Bilirubin AST ALT Alkaline Phosphatase Troponin I Total Protein Albumin c-ANCA <1:20 Proteinase 3 (PR3) <3.5 p-ANCA <1:20 Atypical p-ANCA <1:20 Myeloperoxidase Ab <9.0 Glomerular Base Memb Ab 3 Complement C3 74 L Complement C4 10 L 04/25/19 04/25/19 04/25/19 06:00 09:00 09:30 WBC RBC Hgb Hct MCV MCH MCHC RDW Plt Count MPV Absolute Neuts (auto) Neutrophils % Lymphocytes % Monocytes % Eosinophils % Basophils % Nucleated RBC % Anticoagulation Therapy No Result Required. Puncture Site Left radial ABG pH 7.40 ABG pCO2 at Pt Temp 28.8 L ABG pO2 at Pt Temp 102 H ABG HCO3 18.9 L ABG O2 Sat (Measured) 97.7 ABG O2 Content 11.7 ABG Base Excess -4.2 L Matt Test Positive O2 Delivery Device No Result Required. Oxygen Flow Rate Yes Vent Mode No Result Required. Vent Rate No Result Required. Mechanical Rate No Result Required. Pressure Support Vent No Result Required. Sodium 135 L Potassium 4.3 Chloride 103 Carbon Dioxide 22 Anion Gap 11 BUN 102.5 H Creatinine 5.8 H Est GFR (CKD-EPI)AfAm 8.00 Est GFR (CKD-EPI)NonAf 6.91 Random Glucose 85 Calcium 8.3 L Phosphorus 5.3 H Magnesium 2.1 Total Bilirubin 2.7 H AST 49 H ALT 24 Alkaline Phosphatase 109 Troponin I 0.02 Total Protein 5.6 L Albumin 2.5 L c-ANCA Proteinase 3 (PR3) p-ANCA Atypical p-ANCA Myeloperoxidase Ab Glomerular Base Memb Ab Complement C3 Complement C4 04/26/19 06:00 WBC 11.4 H RBC 2.74 L Hgb 8.5 L Hct 25.0 L MCV 91.3 MCH 30.9 MCHC 33.9 RDW 18.5 H Plt Count 98 L MPV 8.7 Absolute Neuts (auto) 8.8 H Neutrophils % 77.2 Lymphocytes % 9.7 D Monocytes % 11.2 H Eosinophils % 1.4 Basophils % 0.5 Nucleated RBC % 0 Anticoagulation Therapy Puncture Site ABG pH ABG pCO2 at Pt Temp ABG pO2 at Pt Temp ABG HCO3 ABG O2 Sat (Measured) ABG O2 Content ABG Base Excess Matt Test O2 Delivery Device Oxygen Flow Rate Vent Mode Vent Rate Mechanical Rate Pressure Support Vent Sodium Potassium Chloride Carbon Dioxide Anion Gap BUN Creatinine Est GFR (CKD-EPI)AfAm Est GFR (CKD-EPI)NonAf Random Glucose Calcium Phosphorus Magnesium Total Bilirubin AST ALT Alkaline Phosphatase Troponin I Total Protein Albumin c-ANCA Proteinase 3 (PR3) p-ANCA Atypical p-ANCA Myeloperoxidase Ab Glomerular Base Memb Ab Complement C3 Complement C4 Active Medications Generic Name Dose Route Start Last Admin Trade Name Freq PRN Reason Stop Dose Admin Albuterol Sulfate 1 amp 04/20/19 18:00 04/22/19 18:39 Ventolin 0.083% Nebulizer Soln - NEB 1 amp Q6H PRN Administration SHORT OF BREATH/WHEEZING Chlorhexidine Gluconate 1 applic 04/20/19 22:00 04/25/19 22:42 Hibiclens For Decolonization - TP 1 applic HS RADHA Administration Docusate Sodium 100 mg 04/25/19 10:00 04/25/19 11:00 Colace - PO Not Given DAILY RAD[facility] Ergocalciferol 50,000 unit 04/27/19 10:00 Drisdol - PO Q7D@1000 RAD[facility] Furosemide 40 mg 04/21/19 06:00 Lasix - PO BIDLASIX RADHA Furosemide 40 mg 04/26/19 06:00 04/26/19 05:33 Lasix Injection - IVPUSH 40 mg BID@0600,1400 RAD[facility] Administration Ertapenem 0.5 gm/ Sodium 50 mls @ 100 mls/hr 04/22/19 10:00 04/25/19 12:14 Chloride IVPB 100 mls/hr DAILY RAD[facility] Administration Famotidine/Sodium Chloride 20 mg in 50 mls @ 100 mls/hr 04/25/19 14:45 15:04 Pepcid 20 Mg Premixed Ivpb - IVPB 100 mls/hr Q48H RAD[facility] Administration Norepinephrine Bitartrate 8, 500 mls @ 18.75 mls/hr 04/25/19 16:00 04/25/19 21:18 000 mcg/ Dextrose IV 4 mcg/min TITR RADHA 15 mls/hr Titration Protocol 5 MCG/MIN Lactulose 20 gm 04/24/19 10:00 04/25/19 21:15 Cephulac (Oral Use) PO Not Given BID RADHA Metoprolol Tartrate 5 mg 04/25/19 12:53 Lopressor Injection - IVPUSH ONCE PRN TACHYCARDIA Midodrine 10 mg 04/21/19 13:31 04/25/19 18:05 Proamatine - PO Not Given TID-MID RADHA Morphine Sulfate 2 mg 04/24/19 06:03 04/24/19 22:02 Morphine Sulfate IVPUSH 2 mg Q4H PRN Administration PAIN LEVEL 7 - 10 Ondansetron HCl 4 mg 04/25/19 06:28 Zofran - PO TID PRN NAUSEA AND/OR VOMITING Polyethylene Glycol 17 gm 04/25/19 10:00 04/25/19 21:15 Miralax (For Daily Use) - PO Not Given BID RADHA Rifaximin 550 mg 04/20/19 22:00 04/25/19 21:15 Xifaxan - PO Not Given BID RADHA Senna 1 tab 04/25/19 22:00 04/25/19 21:15 Senna - PO Not Given HS [facility] ASSESSMENT/PLAN: 68 YO F with PMH of Dementia, Chronic UTI, HTN, Cirrhosis, Hepatitis C, CHF. Patient has also been experiencing worsening SOB and lower extremity edema. Admitted in the ICU for hemodynamic instability 2/2 hypotension. Was found to be tachycardic at 156 and SOB with labored breathing this morning. Started on High Flow, EKG performed, which initially showed new TWI V4-V6, not seen on repeat EKG, and Trop was negative. #Cardio - Levo 5mcg/hr restared - Right IJ central line placed 04/22 - On Midodrine 10 mg TID, Lopressor 5mg IV PRN #Respiratory - Hi-Flow: 50L/45FiO2 - CXR: report pending, worsening congestion - Lasix 80mg dose given this AM due to congestive changes on CXR, 40mg IV BID started #GI - PT/INR: 18.2/1.54 - GI recc: HRS unlikely - urine sodium not consistent with HRS, can add octreotide if HRS confirmed - Lactulose 20mg PO BID /Senna 1tab PO/ Colace 100mg PO/Miralax 17gm BID, target 3BM per day - Rifaximin 550mg PO BID; target 3BM per day/ Pepcid 20mg IVPB OD - SBP unlikely, if considering tap correct coagulopathy first #Renal - Lasix 40mg IV BID - BUN/Cr: 102.5/5.8 -> 103.0/5.8 - low C3, C4; negative P-anca, C-anca, antiglomerular basement membrane, and DNA ab - Renal USG shows no acute pathology #ID - Ucx: ESBL, Bloodcx negative - Ertapenem 0.5g OD as per ID, Day 6 (adjusted for renal clearance) #Heme - H&H: 8.9/25.8 -> 8.5/25.0 #Prophylaxis - SCDs, holding chemical anticoagulation as INR is already elevated #FEN - Dysphagia puree diet #Disposition - Continue to monitor in ICU due to tenuous respiratory status and hemodynamic instability Visit type - Emergency Visit Emergency Visit: Yes ED Registration Date: 04/20/19 Care time: The patient presented to the Emergency Department on the above date and was hospitalized for further evaluation of their emergent condition. - New Patient This patient is new to me today: No - Critical Care Critical Care patient: Yes Total Critical Care Time (in minutes): 38 Critical Care Statement: The care of this patient involved high complexity decision making to prevent further life threatening deterioration of the patient 's condition and/or to evaluate & treat vital organ system(s) failure or risk of failure. ATTENDING PHYSICIAN STATEMENT I saw and evaluated the patient. I reviewed the resident's note and discussed the case with the resident. I agree with the resident's findings and plan as documented. SUBJECTIVE: OBJECTIVE: ASSESSMENT AND PLAN:
--- NOTE | 2019-04-26 10:15 | PN ---
Teaching Attending Note Name of Resident: Eddie Ryder ATTENDING PHYSICIAN STATEMENT I saw and evaluated the patient. I reviewed the resident's note and discussed the case with the resident. I agree with the resident's findings and plan as documented. SUBJECTIVE: Patient seen and examined in the ICU. Remains on 4mcq Levophed for Septic Shock. Sleepy but easily arousable. Remains on HFOT 50L / 50%. Responsive but confused. Intake & Output 04/23/19 04/24/19 04/25/19 04/26/19 23:59 23:59 23:59 23:59 Intake Total 1136 380 321.6 167.5 Output Total 600 450 800 500 Balance 536 -70 -478.4 -332.5 Weight 167 lb 12.8 oz 165 lb 11.2 oz 165 lb 9.6 oz 165 lb 6.4 oz Last Vital Signs Temp Pulse Resp BP Pulse Ox 97.7 F 80 12 139/52 L 100 04/26/19 06:00 04/26/19 08:00 04/26/19 08:00 04/26/19 08:00 04/26/19 09:00 Active Medications Albuterol Sulfate (Ventolin 0.083% Nebulizer Soln -) 1 amp NEB Q6H PRN PRN Reason: SHORT OF BREATH/WHEEZING Last Admin: 04/22/19 18:39 Dose: 1 amp Chlorhexidine Gluconate (Hibiclens For Decolonization -) 1 applic TP HS [facility] Last Admin: 04/25/19 22:42 Dose: 1 applic Docusate Sodium (Colace -) 100 mg PO DAILY [facility] Last Admin: 04/25/19 11:00 Dose: Not Given Ergocalciferol (Drisdol -) 50,000 unit PO Q7D@1000 RAD[facility] Furosemide (Lasix Injection -) 40 mg IVPUSH BID@0600,1400 [facility] Last Admin: 04/26/19 05:33 Dose: 40 mg Ertapenem 0.5 gm/ Sodium (Chloride) 50 mls @ 100 mls/hr IVPB DAILY [facility] Last Admin: 04/25/19 12:14 Dose: 100 mls/hr Famotidine/Sodium Chloride (Pepcid 20 Mg Premixed Ivpb -) 20 mg in 50 mls @ 100 mls/hr IVPB Q48H [facility] Last Admin: 04/25/19 15:04 Dose: 100 mls/hr Norepinephrine Bitartrate 8, (000 mcg/ Dextrose) 500 mls @ 18.75 mls/hr IV TITR [facility]; Protocol Last Titration: 04/25/19 21:18 Dose: 4 mcg/min, 15 mls/hr Lactulose (Cephulac (Oral Use)) 20 gm PO BID [facility] Last Admin: 04/25/19 21:15 Dose: Not Given Metoprolol Tartrate (Lopressor Injection -) 5 mg IVPUSH ONCE PRN PRN Reason: TACHYCARDIA Midodrine (Proamatine -) 10 mg PO TID-MID [facility] Last Admin: 04/25/19 18:05 Dose: Not Given Morphine Sulfate (Morphine Sulfate) 2 mg IVPUSH Q4H PRN PRN Reason: PAIN LEVEL 7 - 10 Last Admin: 04/24/19 22:02 Dose: 2 mg Ondansetron HCl (Zofran -) 4 mg PO TID PRN PRN Reason: NAUSEA AND/OR VOMITING Polyethylene Glycol (Miralax (For Daily Use) -) 17 gm PO BID [facility] Last Admin: 04/25/19 21:15 Dose: Not Given Rifaximin (Xifaxan -) 550 mg PO BID [facility] Last Admin: 04/25/19 21:15 Dose: Not Given Senna (Senna -) 1 tab PO HS [facility] Last Admin: 04/25/19 21:15 Dose: Not Given Gen: Awake and responsive but confused, mildly tachypneic Heart: RRR Lung: decreased breath sounds at the bases, bilateral scattered rhonchi Abd: softly distended, +ascites Ext: + edema Laboratory Results - last 24 hr 04/23/19 04/24/19 04/25/19 05:00 05:41 09:30 WBC RBC Hgb Hct MCV MCH MCHC RDW Plt Count MPV Absolute Neuts (auto) Neutrophils % Lymphocytes % Monocytes % Eosinophils % Basophils % Nucleated RBC % Sodium Potassium Chloride Carbon Dioxide Anion Gap BUN Creatinine Est GFR (CKD-EPI)AfAm Est GFR (CKD-EPI)NonAf Random Glucose Calcium Phosphorus Magnesium Total Bilirubin AST ALT Alkaline Phosphatase Troponin I 0.02 Total Protein Albumin c-ANCA <1:20 Proteinase 3 (PR3) <3.5 p-ANCA <1:20 Atypical p-ANCA <1:20 Myeloperoxidase Ab <9.0 Complement C3 74 L Complement C4 10 L 04/26/19 04/26/19 06:00 06:00 WBC 11.4 H RBC 2.74 L Hgb 8.5 L Hct 25.0 L MCV 91.3 MCH 30.9 MCHC 33.9 RDW 18.5 H Plt Count 98 L MPV 8.7 Absolute Neuts (auto) 8.8 H Neutrophils % 77.2 Lymphocytes % 9.7 D Monocytes % 11.2 H Eosinophils % 1.4 Basophils % 0.5 Nucleated RBC % 0 Sodium 138 Potassium 4.0 Chloride 106 Carbon Dioxide 22 Anion Gap 10 BUN 103.9 H Creatinine 5.8 H Est GFR (CKD-EPI)AfAm 8.00 Est GFR (CKD-EPI)NonAf 6.91 Random Glucose 90 Calcium 9.0 Phosphorus 5.9 H Magnesium 2.1 Total Bilirubin 2.6 H AST 40 H ALT 20 Alkaline Phosphatase 99 Troponin I Total Protein 5.1 L Albumin 2.1 L c-ANCA Proteinase 3 (PR3) p-ANCA Atypical p-ANCA Myeloperoxidase Ab Complement C3 Complement C4 ASSESSMENT AND PLAN: UTI Septic Shock Acute Respiratory Failure Requiring HFOT Acute Kidney Injury Lactic Acidosis Hep C Cirrhosis Ascites Thrombocytopenia/Anemia h/o DVT - continue antibiotics per ID - Wean pressors as tolerated - continue midodrine - monitor urine output, creatinine - monitor CBC - PO as tolerated - DVT prophylaxis - HFOT for increased WOB - PO as tolerated - continue ICU monitoring for tenuous respiratory status and pressors Dr Valenzuela Critical care time spent in reviewing chart, evaluating patient and formulating plan 35 min
[2019-04-26] MEDS: ERTAPENEM SODIUM 0.5 GM in SODIUM CHLORIDE 50 ML IVPB SCH (10:18)
[2019-04-26] MEDS: MIDODRINE HCL 5 MG TABLET PO SCH ×3 (10:18→18:41)
[2019-04-26] MEDS: LACTULOSE 20 GM/30 ML UDC (FOR ORAL USE ONLY) PO SCH ×2 (10:18→21:13)
[2019-04-26] MEDS: RIFAXIMIN 550 MG TABLET (UD) PO SCH ×2 (10:19→21:14)
[2019-04-26] MEDS: DOCUSATE SODIUM 100 MG CAPSULE (FP) PO SCH (10:48)
[2019-04-26] MEDS: POLYETHYLENE GLYCOL 3350 119 GM BTL PO SCH ×2 (10:49→21:15)
--- NOTE | 2019-04-26 11:01 | PN.GI ---
GI Progress Note Subjective: No acute events Patient on high flow O2 - Objective Vital Signs: Vital Signs Temperature 97.7 F 04/26/19 06:00 Pulse Rate 87 04/26/19 10:39 Respiratory Rate 12 04/26/19 08:00 Blood Pressure 130/70 04/26/19 10:39 O2 Sat by Pulse Oximetry (%) 100 04/26/19 09:00 Constitutional: Calm Eyes: No: Sclera Icterus Cardiovascular: Yes: Regular Rate and Rhythm, Murmur Respiratory: Yes: Diminished (at bases bilaterally) Gastrointestinal Inspection: Yes: Distention ...Auscultate: Yes: Normoactive Bowel Sounds ...Palpate: Yes: Soft. No: Tenderness ( No grimacing upon palpation) ...Percussion: No: Tympanitic Edema: No (No LE edema) Neurological: Yes: Lethargy (arousable, non-verbal) Labs: CBC, BMP 04/26/19 06:00 04/26/19 06:00 INR, PTT INR 1.54 (0.83-1.09) H 04/25/19 05:40 Hepatic Panel Total Bilirubin 2.6 mg/dL (0.2-1) H 04/26/19 06:00 AST 40 U/L (15-37) H 04/26/19 06:00 ALT 20 U/L (13-61) 04/26/19 06:00 Alkaline Phosphatase 99 U/L (45-117) 04/26/19 06:00 Albumin 2.1 g/dl (3.4-5.0) L 04/26/19 06:00 Problem List - Problems (1) Liver cirrhosis Assessment/Plan: Now with DAVID of ? etiology. No clear HRS per renal. Continuing supportive measures Continues on pressors with small increase in urine output Continue with fluid and pressor support Continue antibiotics Continue with midodrine per renal Follow mental status Ordered ammonia level Given complexity of her case including underlying chronic liver disease, Discussed with Stanley Menjivar, her HYDROELECTRIC COMPONENT MACHINIST. Consideration could be given to transfer to a liver center for further evaluation Code(s): K74.60 - UNSPECIFIED CIRRHOSIS OF LIVER
--- NOTE | 2019-04-26 11:12 | PN ---
Progress Note, Physician Chief Complaint: Sepsis Renal Failure Liver Cirrhosis History of Present Illness: Previous notes and events reviewed awake and responsive to name NAD on Levophed drip HFOT repeat CXR reviewed had episode of afib yesterday, rhythm currently NSR - Current Medication List Current Medications: Active Medications Albuterol Sulfate (Ventolin 0.083% Nebulizer Soln -) 1 amp NEB Q6H PRN PRN Reason: SHORT OF BREATH/WHEEZING Last Admin: 04/22/19 18:39 Dose: 1 amp Chlorhexidine Gluconate (Hibiclens For Decolonization -) 1 applic TP HS [facility] Last Admin: 04/25/19 22:42 Dose: 1 applic Docusate Sodium (Colace -) 100 mg PO DAILY [facility] Last Admin: 04/26/19 10:48 Dose: Not Given Ergocalciferol (Drisdol -) 50,000 unit PO Q7D@1000 RADHA Furosemide (Lasix Injection -) 40 mg IVPUSH BID@0600,1400 [facility] Last Admin: 04/26/19 05:33 Dose: 40 mg Ertapenem 0.5 gm/ Sodium (Chloride) 50 mls @ 100 mls/hr IVPB DAILY [facility] Last Admin: 04/26/19 10:18 Dose: 100 mls/hr Famotidine/Sodium Chloride (Pepcid 20 Mg Premixed Ivpb -) 20 mg in 50 mls @ 100 mls/hr IVPB Q48H [facility] Last Admin: 04/25/19 15:04 Dose: 100 mls/hr Norepinephrine Bitartrate 8, (000 mcg/ Dextrose) 500 mls @ 18.75 mls/hr IV TITR [facility]; Protocol Last Titration: 04/26/19 10:39 Dose: 3 mcg/min, 11.25 mls/hr Lactulose (Cephulac (Oral Use)) 20 gm PO BID [facility] Last Admin: 04/26/19 10:18 Dose: 20 gm Metoprolol Tartrate (Lopressor Injection -) 5 mg IVPUSH ONCE PRN PRN Reason: TACHYCARDIA Midodrine (Proamatine -) 10 mg PO TID-MID [facility] Last Admin: 04/26/19 10:18 Dose: 10 mg Morphine Sulfate (Morphine Sulfate) 2 mg IVPUSH Q4H PRN PRN Reason: PAIN LEVEL 7 - 10 Last Admin: 04/24/19 22:02 Dose: 2 mg Ondansetron HCl (Zofran -) 4 mg PO TID PRN PRN Reason: NAUSEA AND/OR VOMITING Polyethylene Glycol (Miralax (For Daily Use) -) 17 gm PO BID [facility] Last Admin: 04/26/19 10:49 Dose: Not Given Rifaximin (Xifaxan -) 550 mg PO BID [facility] Last Admin: 04/26/19 10:19 Dose: 550 mg Senna (Senna -) 1 tab PO HS [facility] Last Admin: 04/25/19 21:15 Dose: Not Given - Objective Vital Signs: Vital Signs Temperature 97.7 F 04/26/19 06:00 Pulse Rate 87 04/26/19 10:39 Respiratory Rate 12 04/26/19 08:00 Blood Pressure 130/70 04/26/19 10:39 O2 Sat by Pulse Oximetry (%) 100 04/26/19 09:00 Constitutional: Yes: No Distress, Calm Eyes: Yes: Conjunctiva Clear HENT: Yes: Atraumatic Cardiovascular: Yes: Regular Rate and Rhythm Respiratory: Yes: Regular, Rhonchi, Other (HFOT) Gastrointestinal: Yes: Normal Bowel Sounds, Soft Genitourinary: Yes: Laguerre Present Musculoskeletal: Yes: Muscle Weakness Extremities: Yes: WNL Edema: No Neurological: Yes: Alert, Pre-Existing Deficit Psychiatric: Yes: Alert, Oriented (to person only) Labs: CBC, BMP 04/26/19 06:00 04/26/19 06:00 INR, PTT INR 1.54 (0.83-1.09) H 04/25/19 05:40 Microbiology 04/20/19 13:28 Blood - Peripheral Venous Blood Culture - Final NO GROWTH AFTER 5 DAYS INCUBATION 04/20/19 13:28 Blood - Peripheral Venous Blood Culture - Final NO GROWTH AFTER 5 DAYS INCUBATION 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 Coli Esbl Principal Consultant Problem List - Problems (1) CKD (chronic kidney disease) Assessment/Plan: -BUN/Cr 103.9/5.8 -Renal on board -monitor renal function daily -Renal US shows both kidneys appear unremarkable without evidence of hydronephrosis or gross renal stones Code(s): N18.9 - CHRONIC KIDNEY DISEASE, UNSPECIFIED (2) Abdominal pain Assessment/Plan: -Abdominal US done and shows liver cirrhosis with splenomegaly with significant amount of free fluid/ascites in upper abdomen and lower quadrants, thickening of gallbladder -GI on board Code(s): R10.9 - UNSPECIFIED ABDOMINAL PAIN (3) Altered mental state Assessment/Plan: -toxic metabolic encephalopathy due to dementia vs renal failure vs CKD Code(s): R41.82 - ALTERED MENTAL STATUS, UNSPECIFIED (4) CHF (congestive heart failure) Assessment/Plan: -daily weights -fluid restriction -strict I&Os -Furosemide -BNP 4540 Code(s): I50.9 - HEART FAILURE, UNSPECIFIED (5) 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 Assessment/Plan: -GI on board -Abdominal US shows liver cirrhosis with splenomegaly with significant amount of free fluid/ascites in upper abdomen and lower quadrants -AST 40 -will need to have discussion with family in regards to GOC, if aggressive treatment is warranted will need transfer to liver center for mangement of underlying chronic liver disease Code(s): B18.2 - CHRONIC VIRAL HEPATITIS C; K74.60 - UNSPECIFIED CIRRHOSIS OF LIVER (6) Hypertension Assessment/Plan: -meds on hold due to Hypotension Code(s): I10 - ESSENTIAL (PRIMARY) HYPERTENSION (7) Hypoxia Assessment/Plan: -Pulm on board -O2 via NC -keep SpO2 >90% -CXR shows mild congestive changes -bronchodilators -repeat CXR shows congestive and infiltrative changes Code(s): R09.02 - HYPOXEMIA (8) Urinary tract infection Assessment/Plan: -ID on board -Leukocytosis -afebrile -Ertapenem -UA shows 3+ leuks, 1+ bilirubin, 3+ blood -UC positive Code(s): N39.0 - URINARY TRACT INFECTION, SITE NOT SPECIFIED Qualifiers: Urinary tract infection type: site unspecified Hematuria presence: without hematuria Qualified Code(s): N39.0 - Urinary tract infection, site not specified (9) Sepsis Assessment/Plan: -ID consult -Leukocytosis -afebrile -Ertapenem -UA shows 3+ leuks, 1+ bilirubin, 3+ blood -UC positive -BC neg -LA 4.9~4.1~2.4~1.7 -CXR shows congestive and infiltrative changes Problems reviewed: Yes Code(s): A41.9 - SEPSIS, UNSPECIFIED ORGANISM (10) DVT (deep venous thrombosis) Assessment/Plan: -Eliquis Code(s): I82.409 - ACUTE EMBOLISM AND THOMBOS UNSP DEEP VN UNSP LOWER EXTREMITY (11) Hyponatremia Assessment/Plan: -resolved -Na 138 -monitor electrolytes daily -renal on board Code(s): E87.1 - HYPO-OSMOLALITY AND HYPONATREMIA (12) Hypotension Assessment/Plan: -Levophed drip -Midrodine -Maintain MAP >65 -Cardiology on board -tele monitoring Code(s): I95.9 - HYPOTENSION, UNSPECIFIED Assessment/Plan see problem list palliative consult
[2019-04-26 11:24] LABS: ANISOCYTOSIS 0; MACROCYTOSIS 1+; OVALOCYTE 1+; PLATELET ESTIMATE DECREASED; TEAR DROP CELLS 1+
--- NOTE | 2019-04-26 11:30 | PN ---
Progress Note, Physician History of Present Illness: AWAKE OFFERS NO COMPLAINTS AFEBRILE - Current Medication List Current Medications: Active Medications Albuterol Sulfate (Ventolin 0.083% Nebulizer Soln -) 1 amp NEB Q6H PRN PRN Reason: SHORT OF BREATH/WHEEZING Last Admin: 04/22/19 18:39 Dose: 1 amp Chlorhexidine Gluconate (Hibiclens For Decolonization -) 1 applic TP HS [facility] Last Admin: 04/25/19 22:42 Dose: 1 applic Docusate Sodium (Colace -) 100 mg PO DAILY [facility] Last Admin: 04/26/19 10:48 Dose: Not Given Ergocalciferol (Drisdol -) 50,000 unit PO Q7D@1000 RAD[facility] Furosemide (Lasix Injection -) 40 mg IVPUSH BID@0600,1400 [facility] Last Admin: 04/26/19 05:33 Dose: 40 mg Ertapenem 0.5 gm/ Sodium (Chloride) 50 mls @ 100 mls/hr IVPB DAILY [facility] Last Admin: 04/26/19 10:18 Dose: 100 mls/hr Famotidine/Sodium Chloride (Pepcid 20 Mg Premixed Ivpb -) 20 mg in 50 mls @ 100 mls/hr IVPB Q48H [facility] Last Admin: 04/25/19 15:04 Dose: 100 mls/hr Norepinephrine Bitartrate 8, (000 mcg/ Dextrose) 500 mls @ 18.75 mls/hr IV TITR [facility]; Protocol Last Titration: 04/26/19 10:39 Dose: 3 mcg/min, 11.25 mls/hr Lactulose (Cephulac (Oral Use)) 20 gm PO BID [facility] Last Admin: 04/26/19 10:18 Dose: 20 gm Metoprolol Tartrate (Lopressor Injection -) 5 mg IVPUSH ONCE PRN PRN Reason: TACHYCARDIA Midodrine (Proamatine -) 10 mg PO TID-MID [facility] Last Admin: 04/26/19 10:18 Dose: 10 mg Morphine Sulfate (Morphine Sulfate) 2 mg IVPUSH Q4H PRN PRN Reason: PAIN LEVEL 7 - 10 Last Admin: 04/24/19 22:02 Dose: 2 mg Ondansetron HCl (Zofran -) 4 mg PO TID PRN PRN Reason: NAUSEA AND/OR VOMITING Polyethylene Glycol (Miralax (For Daily Use) -) 17 gm PO BID [facility] Last Admin: 04/26/19 10:49 Dose: Not Given Rifaximin (Xifaxan -) 550 mg PO BID [facility] Last Admin: 04/26/19 10:19 Dose: 550 mg Senna (Senna -) 1 tab PO HS [facility] Last Admin: 04/25/19 21:15 Dose: Not Given - Objective Vital Signs: Vital Signs Temperature 97.7 F 04/26/19 06:00 Pulse Rate 87 04/26/19 10:39 Respiratory Rate 12 04/26/19 08:00 Blood Pressure 130/70 04/26/19 10:39 O2 Sat by Pulse Oximetry (%) 100 04/26/19 09:00 Constitutional: Yes: No Distress Eyes: Yes: Conjunctiva Clear Cardiovascular: Yes: Regular Rate and Rhythm, S1, S2 Respiratory: Yes: CTA Bilaterally Gastrointestinal: Yes: Normal Bowel Sounds, Soft. No: Tenderness Labs: CBC, BMP 04/26/19 06:00 04/26/19 06:00 INR, PTT INR 1.54 (0.83-1.09) H 04/25/19 05:40 Assessment/Plan SEPSIS HEPATORENAL SYNDROME CHRONIC LIVER DISEASE UTI ESBL CONTINUE ERTAPENEM
--- NOTE | 2019-04-26 12:32 | PN ---
Progress Note, Physician History of Present Illness: Pt seen and examined at bedside. She is more awake and alert today. She is on pressors for hypotension. - Current Medication List Current Medications: Active Medications Albuterol Sulfate (Ventolin 0.083% Nebulizer Soln -) 1 amp NEB Q6H PRN PRN Reason: SHORT OF BREATH/WHEEZING Last Admin: 04/22/19 18:39 Dose: 1 amp Chlorhexidine Gluconate (Hibiclens For Decolonization -) 1 applic TP HS [facility] Last Admin: 04/25/19 22:42 Dose: 1 applic Docusate Sodium (Colace -) 100 mg PO DAILY [facility] Last Admin: 04/26/19 10:48 Dose: Not Given Ergocalciferol (Drisdol -) 50,000 unit PO Q7D@1000 [facility] Furosemide (Lasix Injection -) 40 mg IVPUSH BID@0600,1400 [facility] Last Admin: 04/26/19 05:33 Dose: 40 mg Ertapenem 0.5 gm/ Sodium (Chloride) 50 mls @ 100 mls/hr IVPB DAILY [facility] Last Admin: 04/26/19 10:18 Dose: 100 mls/hr Famotidine/Sodium Chloride (Pepcid 20 Mg Premixed Ivpb -) 20 mg in 50 mls @ 100 mls/hr IVPB Q48H [facility] Last Admin: 04/25/19 15:04 Dose: 100 mls/hr Norepinephrine Bitartrate 8, (000 mcg/ Dextrose) 500 mls @ 18.75 mls/hr IV TITR [facility]; Protocol Last Titration: 04/26/19 10:39 Dose: 3 mcg/min, 11.25 mls/hr Lactulose (Cephulac (Oral Use)) 20 gm PO BID [facility] Last Admin: 04/26/19 10:18 Dose: 20 gm Metoprolol Tartrate (Lopressor Injection -) 5 mg IVPUSH ONCE PRN PRN Reason: TACHYCARDIA Midodrine (Proamatine -) 10 mg PO TID-MID [facility] Last Admin: 04/26/19 10:18 Dose: 10 mg Morphine Sulfate (Morphine Sulfate) 2 mg IVPUSH Q4H PRN PRN Reason: PAIN LEVEL 7 - 10 Last Admin: 04/24/19 22:02 Dose: 2 mg Ondansetron HCl (Zofran -) 4 mg PO TID PRN PRN Reason: NAUSEA AND/OR VOMITING Polyethylene Glycol (Miralax (For Daily Use) -) 17 gm PO BID [facility] Last Admin: 04/26/19 10:49 Dose: Not Given Rifaximin (Xifaxan -) 550 mg PO BID [facility] Last Admin: 04/26/19 10:19 Dose: 550 mg Senna (Senna -) 1 tab PO HS [facility] Last Admin: 04/25/19 21:15 Dose: Not Given - Objective Vital Signs: Vital Signs Temperature 97.6 F 04/26/19 10:00 Pulse Rate 81 04/26/19 12:00 Respiratory Rate 13 04/26/19 12:00 Blood Pressure 119/53 L 04/26/19 12:00 O2 Sat by Pulse Oximetry (%) 100 04/26/19 09:00 Constitutional: Yes: Calm Eyes: Yes: Conjunctiva Clear HENT: Yes: Atraumatic Neck: Yes: Supple Cardiovascular: Yes: S1, S2 Respiratory: Yes: On Nasal O2 Gastrointestinal: Yes: Soft Genitourinary: Yes: Laguerre Present Musculoskeletal: Yes: Muscle Weakness Edema: No Neurological: Yes: Oriented Psychiatric: Yes: Oriented Labs: CBC, BMP 04/26/19 06:00 04/26/19 06:00 INR, PTT INR 1.54 (0.83-1.09) H 04/25/19 05:40 Assessment/Plan Current Medications Generic Name Dose Route Start Last Admin Trade Name Freq PRN Reason Stop Dose Admin Albuterol Sulfate 1 amp 04/20/19 18:00 04/22/19 18:39 Ventolin 0.083% Nebulizer Soln - NEB 1 amp Q6H PRN Administration SHORT OF BREATH/WHEEZING Chlorhexidine Gluconate 1 applic 04/20/19 22:00 04/25/19 22:42 Hibiclens For Decolonization - TP 1 applic HS [facility] Administration Docusate Sodium 100 mg 04/25/19 10:00 04/26/19 10:48 Colace - PO Not Given DAILY [facility] Ergocalciferol 50,000 unit 04/27/19 10:00 Drisdol - PO Q7D@1000 [facility] Furosemide 40 mg 04/26/19 06:00 04/26/19 05:33 Lasix Injection - IVPUSH 40 mg BID@0600,1400 [facility] Administration Ertapenem 0.5 gm/ Sodium 50 mls @ 100 mls/hr 04/22/19 10:00 04/26/19 10:18 Chloride IVPB 100 mls/hr DAILY [facility] Administration Famotidine/Sodium Chloride 20 mg in 50 mls @ 100 mls/hr 04/25/19 14:45 15:04 Pepcid 20 Mg Premixed Ivpb - IVPB 100 mls/hr Q48H [facility] Administration Norepinephrine Bitartrate 8, 500 mls @ 18.75 mls/hr 04/25/19 16:00 04/26/19 10:39 000 mcg/ Dextrose IV 3 mcg/min TITR RAD[facility] 11.25 mls/hr Titration Protocol 5 MCG/MIN Lactulose 20 gm 04/24/19 10:00 04/26/19 10:18 Cephulac (Oral Use) PO 20 gm BID [facility] Administration Metoprolol Tartrate 5 mg 04/25/19 12:53 Lopressor Injection - IVPUSH ONCE PRN TACHYCARDIA Midodrine 10 mg 04/21/19 13:31 04/26/19 10:18 Proamatine - PO 10 mg TID-MID [facility] Administration Morphine Sulfate 2 mg 04/24/19 06:03 04/24/19 22:02 Morphine Sulfate IVPUSH 2 mg Q4H PRN Administration PAIN LEVEL 7 - 10 Ondansetron HCl 4 mg 04/25/19 06:28 Zofran - PO TID PRN NAUSEA AND/OR VOMITING Polyethylene Glycol 17 gm 04/25/19 10:00 04/26/19 10:49 Miralax (For Daily Use) - PO Not Given BID [facility] Rifaximin 550 mg 04/20/19 22:00 04/26/19 10:19 Xifaxan - PO 550 mg BID [facility] Administration Senna 1 tab 04/25/19 22:00 04/25/19 21:15 Senna - PO Not Given HS [facility] Laboratory Tests 04/21/19 04/22/19 04/23/19 05:55 05:55 05:00 Serum Cryoglobulins Pending Rheumatoid Factor < 10.0 c-ANCA <1:20 Proteinase 3 (PR3) <3.5 p-ANCA <1:20 Atypical p-ANCA <1:20 Myeloperoxidase Ab <9.0 Double Strand DNA Ab <1 Glomerular Base Memb Ab 3 Complement C3 Complement C4 04/24/19 05:41 Serum Cryoglobulins Rheumatoid Factor c-ANCA Proteinase 3 (PR3) p-ANCA Atypical p-ANCA Myeloperoxidase Ab Double Strand DNA Ab Glomerular Base Memb Ab Complement C3 74 L Complement C4 10 L Impression 1. DAVID 2. CKD 3. hep C cirrhosis 4. UTI 5. sepsis 6. ascites 7. hypervolemic hyponatremia 8. coagulopathy PLAN - cont with lasix as needed - monitor volume status - cont pressors - monitor renal functio - c3 and c4 are low - pressors to a map of 65 - renal workup in progress - discussed with GI
--- NOTE | 2019-04-26 13:00 | PN ---
Progress Note, MONITORING SPECIALIST - Note Progress Note: Selected Entries 04/25/19 04/25/19 04/25/19 02:00 06:00 07:58 Breakfast Supper Temperature 97.5 F L 97.6 F 98.6 F 04/25/19 04/25/19 04/25/19 10:00 14:00 18:00 Breakfast Supper Temperature 98.6 F 99.8 F H 98.6 F 04/25/19 04/25/19 04/26/19 20:00 22:34 00:00 Breakfast Supper 0 Temperature 98.6 F 98.2 F 04/26/19 04/26/19 04/26/19 02:00 06:00 10:00 Breakfast 75% Supper Temperature 97.8 F 97.7 F 97.6 F Laboratory Tests 04/24/19 04/25/19 04/26/19 05:50 05:40 06:00 WBC 10.1 H 10.9 H 11.4 H Lethargic yesterday. Tolerating diet well today.
[2019-04-26] MEDS ORDERED: FUROSEMIDE 40 MG/4 ML INJECTABLE VIAL IVPUSH SCH (14:00)
[2019-04-26 15:20] LABS: EPI CELLS 0.1 /HPF (0-5/HPF); HYALINE CASTS 1 /lpf (0-8); URINE APPEARANCE CLOUDY; URINE BACTERIA 1.9 /hpf (NEGATIVE); URINE BILIRUBIN NEGATIVE (NEGATIVE); URINE COLOR YELLOW; URINE GLUCOSE (UA) NEGATIVE (NEGATIVE); URINE KETONE NEGATIVE (NEGATIVE); URINE LEUK ESTERASE TRACE (NEGATIVE); URINE NITRITE NEGATIVE (NEGATIVE); URINE PROTEIN 1+ (NEGATIVE); URINE RBC 35 /hpf (0-4); URINE UROBILINOGEN 0.2 mg/dL (0.2-1.0); URINE WBC 1 /hpf (0-5)
[2019-04-26] MEDS: ALBUTEROL SO4 0.083% IH SOL 2.5 MG/3 ML VIAL.NEB. NEB PRN (20:35)
[2019-04-26] MEDS: NOREPINEPHRINE BITARTRATE 8,000 MCG in DEXTROSE 5%-WATER - 492 ML IV SCH (21:11)
[2019-04-26] MEDS: CHLORHEXIDINE GLUCONATE 4% CLEANSER FOR DECOLONIZATION TP SCH (21:14)
[2019-04-26] MEDS: SENNOSIDES 8.6MG TABLET (FP) PO SCH (21:14)
[2019-04-27] MEDS: FUROSEMIDE 40 MG/4 ML INJECTABLE VIAL IVPUSH SCH ×2 (06:30→15:00)
[2019-04-27 07:20] LABS: ALBUMIN 2.2 g/dl (3.4-5.0); BILIRUBIN,TOTAL 2.1 mg/dL (0.2-1); BLOOD UREA NITROGEN 102.9 mg/dL (7-18); CALCIUM 8.8 mg/dL (8.5-10.1); CREATININE 5.5 mg/dL (0.55-1.3); POTASSIUM 4.2 mmol/L (3.5-5.1); TOT PROT 5.4 g/dl (6.4-8.2)
--- NOTE | 2019-04-27 08:17 | PN ---
Physical Exam: SUBJECTIVE: Patient seen and examined. Awake but less oriented today. Unable to follow commands or appropriately answer questions. OBJECTIVE: Vital Signs Period Temp Pulse Resp BP Sys/[place] Pulse Ox Last 24 Hr 97.6 F-98.5 F 70-87 13-20 106-140/44-81 96-100 GENERAL: AAOx0 HEAD: Normal with no signs of trauma. EYES: PERRL, EOMI ENT: dry mucous membranes NECK: Trachea midline, Right IJ central line in place LUNGS: decreased breath sounds at bases. no wheezing, rales, or rhonchi. no accessory muscle use. HEART: murmur noted. RRR ABDOMEN: soft, nontender. mild distension. caput medusa noted. normoactive bowel sounds EXTREMITIES: 2+ pulses, warm, well-perfused NEUROLOGICAL: unable to follow commands or answer questions appropriately Laboratory Results - last 24 hr 04/26/19 04/26/19 04/26/19 06:00 12:36 14:00 WBC Corrected WBC (auto) RBC Hgb Hct MCV MCH MCHC RDW Plt Count MPV Absolute Neuts (auto) Neutrophils % Neutrophils % (Manual) 78.0 Band Neutrophils % 1.0 Lymphocytes % Lymphocytes % (Manual) 5.0 L D Monocytes % Monocytes % (Manual) 8 D Eosinophils % Eosinophils % (Manual) 0.0 Basophils % Basophils % (Manual) 1.0 D Myelocytes % (Man) 3 H D Promyelocytes % (Man) 0 Blast Cells % (Manual) 0 Nucleated RBC % Metamyelocytes 0 Hypochromia 0 Platelet Estimate Decreased Platelet Comment Polychromasia 0 Poikilocytosis 1+ Anisocytosis 0 Microcytosis 0 Macrocytosis 1+ Spherocytes 1+ Tear Drop Cells 1+ Ovalocytes 1+ Sodium Potassium Chloride Carbon Dioxide Anion Gap BUN Creatinine Est GFR (CKD-EPI)AfAm Est GFR (CKD-EPI)NonAf Random Glucose Calcium Phosphorus Magnesium Total Bilirubin AST ALT Alkaline Phosphatase Ammonia < 10.00 L Total Protein Albumin Urine Color Yellow Urine Appearance Cloudy Urine pH 5.0 Ur Specific [place] 1.011 Urine Protein 1+ H Urine Glucose (UA) Negative Urine Ketones Negative Urine Blood 3+ H Urine Nitrite Negative Urine Bilirubin Negative Urine Urobilinogen 0.2 Ur Leukocyte Esterase Trace Urine WBC (Auto) 1 Urine RBC (Auto) 35 Urine Casts (Auto) 1 U Epithel Cells (Auto) 0.1 Urine Bacteria (Auto) 1.9 04/27/19 04/27/19 06:20 06:20 WBC Cancelled Corrected WBC (auto) Cancelled RBC Cancelled Hgb Cancelled Hct Cancelled MCV Cancelled MCH Cancelled MCHC Cancelled RDW Cancelled Plt Count Cancelled MPV Cancelled Absolute Neuts (auto) Cancelled Neutrophils % Cancelled Neutrophils % (Manual) Band Neutrophils % Lymphocytes % Cancelled Lymphocytes % (Manual) Monocytes % Cancelled Monocytes % (Manual) Eosinophils % Cancelled Eosinophils % (Manual) Basophils % Cancelled Basophils % (Manual) Myelocytes % (Man) Promyelocytes % (Man) Blast Cells % (Manual) Nucleated RBC % Cancelled Metamyelocytes Hypochromia Platelet Estimate Cancelled Platelet Comment Cancelled Polychromasia Poikilocytosis Anisocytosis Microcytosis Macrocytosis Spherocytes Tear Drop Cells Ovalocytes Sodium 138 Potassium 4.2 Chloride 106 Carbon Dioxide 23 Anion Gap 9 BUN 102.9 H Creatinine 5.5 H Est GFR (CKD-EPI)AfAm 8.54 Est GFR (CKD-EPI)NonAf 7.36 Random Glucose 93 Calcium 8.8 Phosphorus 6.0 H Magnesium 2.0 Total Bilirubin 2.1 H AST 41 H ALT 21 Alkaline Phosphatase 107 Ammonia Total Protein 5.4 L Albumin 2.2 L Urine Color Urine Appearance Urine pH Ur Specific [place] Urine Protein Urine Glucose (UA) Urine Ketones Urine Blood Urine Nitrite Urine Bilirubin Urine Urobilinogen Ur Leukocyte Esterase Urine WBC (Auto) Urine RBC (Auto) Urine Casts (Auto) U Epithel Cells (Auto) Urine Bacteria (Auto) Active Medications Generic Name Dose Route Start Last Admin Trade Name Julieta PRN Reason Stop Dose Admin Albuterol Sulfate 1 amp 04/20/19 18:00 04/26/19 20:35 Ventolin 0.083% Nebulizer Soln - NEB 1 amp Q6H PRN Administration SHORT OF BREATH/WHEEZING Chlorhexidine Gluconate 1 applic 04/20/19 22:00 04/26/19 21:14 Hibiclens For Decolonization - TP 1 applic HS RAD[facility] Administration Docusate Sodium 100 mg 04/25/19 10:00 04/26/19 10:48 Colace - PO Not Given DAILY [facility] Ergocalciferol 50,000 unit 04/27/19 10:00 Drisdol - PO Q7D@1000 [facility] Furosemide 40 mg 04/26/19 06:00 04/27/19 06:30 Lasix Injection - IVPUSH 40 mg BID@0600,1400 [facility] Administration Ertapenem 0.5 gm/ Sodium 50 mls @ 100 mls/hr 04/22/19 10:00 04/26/19 10:18 Chloride IVPB 100 mls/hr DAILY [facility] Administration Famotidine/Sodium Chloride 20 mg in 50 mls @ 100 mls/hr 04/25/19 14:45 15:04 Pepcid 20 Mg Premixed Ivpb - IVPB 100 mls/hr Q48H [facility] Administration Norepinephrine Bitartrate 8, 500 mls @ 18.75 mls/hr 04/25/19 16:00 04/26/19 21:11 000 mcg/ Dextrose IV Not Given TITR RAD[facility] Protocol 5 MCG/MIN Lactulose 20 gm 04/24/19 10:00 04/26/19 21:13 Cephulac (Oral Use) PO 20 gm BID [facility] Administration Metoprolol Tartrate 5 mg 04/25/19 12:53 Lopressor Injection - IVPUSH ONCE PRN TACHYCARDIA Midodrine 10 mg 04/21/19 13:31 04/26/19 18:41 Proamatine - PO 10 mg TID-MID [facility] Administration Ondansetron HCl 4 mg 04/25/19 06:28 Zofran - PO TID PRN NAUSEA AND/OR VOMITING Polyethylene Glycol 17 gm 04/25/19 10:00 04/26/19 21:15 Miralax (For Daily Use) - PO 17 gm BID [facility] Administration Rifaximin 550 mg 04/20/19 22:00 04/26/19 21:14 Xifaxan - PO 550 mg BID [facility] Administration Senna 1 tab 04/25/19 22:00 04/26/19 21:14 Senna - PO 1 tab HS [facility] Administration ASSESSMENT/PLAN: 68 y/o/f with PMH of Dementia, Chronic UTI, HTN, Cirrhosis, Hepatitis C, CHF. Patient has also been experiencing worsening SOB and lower extremity edema. Admitted in the ICU for hemodynamic instability 2/2 hypotension. #Neuro - AAOx0 today. At baseline patient is AAO to self and place. mental status fluctuates - continue to monitor #Cardio - Currently off pressors, weaned off of Levophed - Right IJ central line placed 04/22. Will remove before patient is transferred to floors. - On Midodrine 10 mg TID, Lopressor 5mg IV PRN #Respiratory - saturating well on nasal cannula. weaned off of High-flow overnight - keep O2 saturation >90% - CXR today similar to yesterday with some mild improvement. - Continue Lasix 40mg IV BID #GI - PT/INR: 18.2/1.54 - GI recc: HRS unlikely - urine sodium not consistent with HRS, can add octreotide if HRS confirmed - Lactulose 20mg PO BID /Senna 1tab PO/ Colace 100mg PO/Miralax 17gm BID, target 3BM per day - Rifaximin 550mg PO BID; target 3BM per day/ Pepcid 20mg IVPB OD - SBP unlikely, if considering tap correct coagulopathy first - Consider transfer to a liver center for further evaluation due to chronic liver disease and complexity of this case #Renal - Lasix 40mg IV BID - BUN/Cr: 102.5/5.8 -> 103.0/5.8 -> 102.9/5.5 - low C3, C4; negative P-anca, C-anca, antiglomerular basement membrane, and DNA ab - Renal USG shows no acute pathology - patient is making urine and without electrolyte abnormalities, no indication for acute QUALITY ANALYST - repeat urine studies ordered #ID - WBC normalized to 9.4 - Ucx: ESBL, Bloodcx negative - Ertapenem 0.5g OD as per ID, Day 6 (adjusted for renal clearance) #Heme - H&H: 8.5/25.0 -> 9.4/28.7. Improving #Prophylaxis - SCDs, holding chemical anticoagulation as INR is already elevated - Can start Heparin if INR <1.5 #FEN - Dysphagia puree diet #Disposition - Stable for transfer to Med/Surg Visit type - Emergency Visit Emergency Visit: Yes ED Registration Date: 04/20/19 Care time: The patient presented to the Emergency Department on the above date and was hospitalized for further evaluation of their emergent condition. - New Patient This patient is new to me today: No - Critical Care Critical Care patient: Yes Total Critical Care Time (in minutes): 36 Critical Care Statement: The care of this patient involved high complexity decision making to prevent further life threatening deterioration of the patient 's condition and/or to evaluate & treat vital organ system(s) failure or risk of failure. ATTENDING PHYSICIAN STATEMENT I saw and evaluated the patient. I reviewed the resident's note and discussed the case with the resident. I agree with the resident's findings and plan as documented. SUBJECTIVE: OBJECTIVE: ASSESSMENT AND PLAN:
--- NOTE | 2019-04-27 08:51 | PN ---
Teaching Attending Note Name of Resident: Kiley Roth ATTENDING PHYSICIAN STATEMENT I saw and evaluated the patient. I reviewed the resident's note and discussed the case with the resident. I agree with the resident's findings and plan as documented. SUBJECTIVE: Patient seen and examined in the ICU. Currently off Levophed drip. Awake and responsive. Off HFOT and now on NC O2. Intake & Output 04/24/19 04/25/19 04/26/19 04/27/19 23:59 23:59 23:59 23:59 Intake Total 380 321.6 417.5 60 Output Total 198 831 6321 350 Balance -70 -478.4 -852.5 -290 Weight 165 lb 11.2 oz 165 lb 9.6 oz 165 lb 6.4 oz 165 lb 3.2 oz Last Vital Signs Temp Pulse Resp BP Pulse Ox 98.3 F 92 H 16 132/56 L 96 04/27/19 08:00 04/27/19 08:00 04/27/19 08:00 04/27/19 08:00 04/26/19 20:19 Active Medications Albuterol Sulfate (Ventolin 0.083% Nebulizer Soln -) 1 amp NEB Q6H PRN PRN Reason: SHORT OF BREATH/WHEEZING Last Admin: 04/26/19 20:35 Dose: 1 amp Chlorhexidine Gluconate (Hibiclens For Decolonization -) 1 applic TP HS [facility] Last Admin: 04/26/19 21:14 Dose: 1 applic Docusate Sodium (Colace -) 100 mg PO DAILY [facility] Last Admin: 04/26/19 10:48 Dose: Not Given Ergocalciferol (Drisdol -) 50,000 unit PO Q7D@1000 [facility] Furosemide (Lasix Injection -) 40 mg IVPUSH BID@0600,1400 [facility] Last Admin: 04/27/19 06:30 Dose: 40 mg Ertapenem 0.5 gm/ Sodium (Chloride) 50 mls @ 100 mls/hr IVPB DAILY [facility] Last Admin: 04/26/19 10:18 Dose: 100 mls/hr Famotidine/Sodium Chloride (Pepcid 20 Mg Premixed Ivpb -) 20 mg in 50 mls @ 100 mls/hr IVPB Q48H [facility] Last Admin: 04/25/19 15:04 Dose: 100 mls/hr Norepinephrine Bitartrate 8, (000 mcg/ Dextrose) 500 mls @ 18.75 mls/hr IV TITR [facility]; Protocol Last Admin: 04/26/19 21:11 Dose: Not Given Lactulose (Cephulac (Oral Use)) 20 gm PO BID [facility] Last Admin: 04/26/19 21:13 Dose: 20 gm Metoprolol Tartrate (Lopressor Injection -) 5 mg IVPUSH ONCE PRN PRN Reason: TACHYCARDIA Midodrine (Proamatine -) 10 mg PO TID-MID [facility] Last Admin: 04/26/19 18:41 Dose: 10 mg Ondansetron HCl (Zofran -) 4 mg PO TID PRN PRN Reason: NAUSEA AND/OR VOMITING Polyethylene Glycol (Miralax (For Daily Use) -) 17 gm PO BID [facility] Last Admin: 04/26/19 21:15 Dose: 17 gm Rifaximin (Xifaxan -) 550 mg PO BID [facility] Last Admin: 04/26/19 21:14 Dose: 550 mg Senna (Senna -) 1 tab PO HS [facility] Last Admin: 04/26/19 21:14 Dose: 1 tab Gen: Awake and responsive but confused, NAD Heart: RRR Lung: decreased breath sounds at the bases, bilateral scattered rhonchi Abd: softly distended, +ascites Ext: decreased edema Laboratory Results - last 24 hr 04/26/19 04/26/19 04/26/19 06:00 12:36 14:00 WBC Corrected WBC (auto) RBC Hgb Hct MCV MCH MCHC RDW Plt Count MPV Absolute Neuts (auto) Neutrophils % Neutrophils % (Manual) 78.0 Band Neutrophils % 1.0 Lymphocytes % Lymphocytes % (Manual) 5.0 L D Monocytes % Monocytes % (Manual) 8 D Eosinophils % Eosinophils % (Manual) 0.0 Basophils % Basophils % (Manual) 1.0 D Myelocytes % (Man) 3 H D Promyelocytes % (Man) 0 Blast Cells % (Manual) 0 Nucleated RBC % Metamyelocytes 0 Hypochromia 0 Platelet Estimate Decreased Platelet Comment Polychromasia 0 Poikilocytosis 1+ Anisocytosis 0 Microcytosis 0 Macrocytosis 1+ Spherocytes 1+ Tear Drop Cells 1+ Ovalocytes 1+ Sodium Potassium Chloride Carbon Dioxide Anion Gap BUN Creatinine Est GFR (CKD-EPI)AfAm Est GFR (CKD-EPI)NonAf Random Glucose Calcium Phosphorus Magnesium Total Bilirubin AST ALT Alkaline Phosphatase Ammonia < 10.00 L Total Protein Albumin Urine Color Yellow Urine Appearance Cloudy Urine pH 5.0 Ur Specific [place] 1.011 Urine Protein 1+ H Urine Glucose (UA) Negative Urine Ketones Negative Urine Blood 3+ H Urine Nitrite Negative Urine Bilirubin Negative Urine Urobilinogen 0.2 Ur Leukocyte Esterase Trace Urine WBC (Auto) 1 Urine RBC (Auto) 35 Urine Casts (Auto) 1 U Epithel Cells (Auto) 0.1 Urine Bacteria (Auto) 1.9 04/27/19 04/27/19 06:20 06:20 WBC Cancelled Corrected WBC (auto) Cancelled RBC Cancelled Hgb Cancelled Hct Cancelled MCV Cancelled MCH Cancelled MCHC Cancelled RDW Cancelled Plt Count Cancelled MPV Cancelled Absolute Neuts (auto) Cancelled Neutrophils % Cancelled Neutrophils % (Manual) Band Neutrophils % Lymphocytes % Cancelled Lymphocytes % (Manual) Monocytes % Cancelled Monocytes % (Manual) Eosinophils % Cancelled Eosinophils % (Manual) Basophils % Cancelled Basophils % (Manual) Myelocytes % (Man) Promyelocytes % (Man) Blast Cells % (Manual) Nucleated RBC % Cancelled Metamyelocytes Hypochromia Platelet Estimate Cancelled Platelet Comment Cancelled Polychromasia Poikilocytosis Anisocytosis Microcytosis Macrocytosis Spherocytes Tear Drop Cells Ovalocytes Sodium 138 Potassium 4.2 Chloride 106 Carbon Dioxide 23 Anion Gap 9 BUN 102.9 H Creatinine 5.5 H Est GFR (CKD-EPI)AfAm 8.54 Est GFR (CKD-EPI)NonAf 7.36 Random Glucose 93 Calcium 8.8 Phosphorus 6.0 H Magnesium 2.0 Total Bilirubin 2.1 H AST 41 H ALT 21 Alkaline Phosphatase 107 Ammonia Total Protein 5.4 L Albumin 2.2 L Urine Color Urine Appearance Urine pH Ur Specific [place] Urine Protein Urine Glucose (UA) Urine Ketones Urine Blood Urine Nitrite Urine Bilirubin Urine Urobilinogen Ur Leukocyte Esterase Urine WBC (Auto) Urine RBC (Auto) Urine Casts (Auto) U Epithel Cells (Auto) Urine Bacteria (Auto) ASSESSMENT AND PLAN: UTI Resolved Septic Shock Acute Respiratory Failure Requiring HFOT Acute Kidney Injury Lactic Acidosis Hep C Cirrhosis Ascites Thrombocytopenia/Anemia h/o DVT - continue antibiotics per ID - continue midodrine - monitor urine output, creatinine - PO as tolerated - DVT prophylaxis - PO as tolerated - Floor Dr Valenzuela
[2019-04-27 08:57] LABS: BASO % 1.4 % (0-2.0); EOS % 1.8 % (0-4.5); HEMATOCRIT 28.7 % (32.4-45.2); HEMOGLOBIN 9.4 GM/dL (10.7-15.3); LYMPH % 9.3 % (8-40); MCH 31.1 pg (25.7-33.7); MCHC 32.6 g/dl (32.0-36.0); MEAN CELL VOLUME 95.5 fl (80-96); MEAN PLT VOLUME 8.6 fl (7.5-11.1); NEUT % 77.5 % (42.8-82.8); PLATELET COUNT 98 K/MM3 (134-434); RBC 3.01 M/mm3 (3.60-5.2); RDW 19.5 % (11.6-15.6); WHITE BLOOD COUNT 9.4 K/mm3 (4.0-10.0)
--- NOTE | 2019-04-27 08:59 | PN ---
Progress Note (short form) - Note Progress Note: Renal follow up for DAVID Coverage for Dr. Bagley Seen and examined in the ICU awake and alert off Levophed making urine, output 1250 yesterday Bp stable pt is non-verbal Vital Signs Temperature 98.3 F 04/27/19 08:00 Pulse Rate 92 H 04/27/19 08:00 Respiratory Rate 16 04/27/19 08:00 Blood Pressure 132/56 L 04/27/19 08:00 O2 Sat by Pulse Oximetry (%) 96 04/26/19 20:19 Intake & Output 04/24/19 04/25/19 04/26/19 04/27/19 23:59 23:59 23:59 23:59 Intake Total 380 321.6 417.5 60 Output Total 286 869 5092 350 Balance -70 -478.4 -852.5 -290 Weight 75.16 kg 75.115 kg 75.024 kg 74.933 kg NAD awake and alert RRR Dec BS, no rales trace LE edema, + sacral edema CBC, BMP 04/27/19 06:20 Current Medications Albuterol Sulfate (Ventolin 0.083% Nebulizer Soln -) 1 amp NEB Q6H PRN PRN Reason: SHORT OF BREATH/WHEEZING Last Admin: 04/26/19 20:35 Dose: 1 amp Chlorhexidine Gluconate (Hibiclens For Decolonization -) 1 applic TP HS [facility] Last Admin: 04/26/19 21:14 Dose: 1 applic Docusate Sodium (Colace -) 100 mg PO DAILY [facility] Last Admin: 04/26/19 10:48 Dose: Not Given Ergocalciferol (Drisdol -) 50,000 unit PO Q7D@1000 [facility] Furosemide (Lasix Injection -) 40 mg IVPUSH BID@0600,1400 [facility] Last Admin: 04/27/19 06:30 Dose: 40 mg Ertapenem 0.5 gm/ Sodium (Chloride) 50 mls @ 100 mls/hr IVPB DAILY [facility] Last Admin: 04/26/19 10:18 Dose: 100 mls/hr Famotidine/Sodium Chloride (Pepcid 20 Mg Premixed Ivpb -) 20 mg in 50 mls @ 100 mls/hr IVPB Q48H [facility] Last Admin: 04/25/19 15:04 Dose: 100 mls/hr Norepinephrine Bitartrate 8, (000 mcg/ Dextrose) 500 mls @ 18.75 mls/hr IV TITR [facility]; Protocol Last Admin: 04/26/19 21:11 Dose: Not Given Lactulose (Cephulac (Oral Use)) 20 gm PO BID [facility] Last Admin: 04/26/19 21:13 Dose: 20 gm Metoprolol Tartrate (Lopressor Injection -) 5 mg IVPUSH ONCE PRN PRN Reason: TACHYCARDIA Midodrine (Proamatine -) 10 mg PO TID-MID [facility] Last Admin: 04/26/19 18:41 Dose: 10 mg Ondansetron HCl (Zofran -) 4 mg PO TID PRN PRN Reason: NAUSEA AND/OR VOMITING Polyethylene Glycol (Miralax (For Daily Use) -) 17 gm PO BID [facility] Last Admin: 04/26/19 21:15 Dose: 17 gm Rifaximin (Xifaxan -) 550 mg PO BID [facility] Last Admin: 04/26/19 21:14 Dose: 550 mg Senna (Senna -) 1 tab PO HS [facility] Last Admin: 04/26/19 21:14 Dose: 1 tab Impression 1. DAVID 2. CKD 3. hep C cirrhosis 4. UTI 5. sepsis 6. ascites 7. hypervolemic hyponatremia 8. coagulopathy PLAN Renal function stable at this time no acute indication for MACHINE MARKER as pt has no overt electrolyte abnormality and is non-oliguric continue IV Lasix BID Repeat urine studies today Serologic work up negative thus far keep MAP > 65 Dose all meds for CrCl < 15 Thank you Jonathan Mcclellan DO
[2019-04-27] MEDS ORDERED: PT OWN MED DRAWER 7, Y5N ONE (09:32)
[2019-04-27] MEDS: DOCUSATE SODIUM 100 MG CAPSULE (FP) PO SCH (09:38)
[2019-04-27] MEDS: LACTULOSE 20 GM/30 ML UDC (FOR ORAL USE ONLY) PO SCH ×2 (09:38→21:27)
[2019-04-27] MEDS: amLODIPine BESYLATE 5 MG TABLET (FP) PO SCH (09:39)
[2019-04-27] MEDS: RIFAXIMIN 550 MG TABLET (UD) PO SCH ×2 (09:39→21:27)
[2019-04-27] MEDS: MIDODRINE HCL 5 MG TABLET PO SCH ×3 (09:39→17:36)
[2019-04-27] MEDS: POLYETHYLENE GLYCOL 3350 119 GM BTL PO SCH ×2 (09:40→21:30)
--- NOTE | 2019-04-27 09:48 | PN ---
Progress Note, Physician Chief Complaint: AWAKE , EVENTS AND NOTES REVIEWED PATIENT SEEN IN ICU ON 2L NC FOR 02 SUPPORT WRIST RESTRAINTS FOR AGITATION - Current Medication List Current Medications: Active Medications Albuterol Sulfate (Ventolin 0.083% Nebulizer Soln -) 1 amp NEB Q6H PRN PRN Reason: SHORT OF BREATH/WHEEZING Last Admin: 04/26/19 20:35 Dose: 1 amp Amlodipine Besylate (Norvasc -) 5 mg PO DAILY [facility] Last Admin: 04/27/19 09:39 Dose: Not Given Chlorhexidine Gluconate (Hibiclens For Decolonization -) 1 applic TP HS [facility] Last Admin: 04/26/19 21:14 Dose: 1 applic Docusate Sodium (Colace -) 100 mg PO DAILY [facility] Last Admin: 04/27/19 09:38 Dose: 100 mg Ergocalciferol (Drisdol -) 50,000 unit PO Q7D@1000 [facility] Last Admin: 04/27/19 09:40 Dose: 50,000 unit Furosemide (Lasix Injection -) 40 mg IVPUSH BID@0600,1400 [facility] Last Admin: 04/27/19 06:30 Dose: 40 mg Ertapenem 0.5 gm/ Sodium (Chloride) 50 mls @ 100 mls/hr IVPB DAILY [facility] Last Admin: 04/26/19 10:18 Dose: 100 mls/hr Famotidine/Sodium Chloride (Pepcid 20 Mg Premixed Ivpb -) 20 mg in 50 mls @ 100 mls/hr IVPB Q48H [facility] Last Admin: 04/25/19 15:04 Dose: 100 mls/hr Norepinephrine Bitartrate 8, (000 mcg/ Dextrose) 500 mls @ 18.75 mls/hr IV TITR [facility]; Protocol Last Admin: 04/26/19 21:11 Dose: Not Given Lactulose (Cephulac (Oral Use)) 20 gm PO BID [facility] Last Admin: 04/27/19 09:38 Dose: 20 gm Metoprolol Tartrate (Lopressor Injection -) 5 mg IVPUSH ONCE PRN PRN Reason: TACHYCARDIA Midodrine (Proamatine -) 10 mg PO TID-MID [facility] Last Admin: 04/27/19 09:39 Dose: 10 mg Ondansetron HCl (Zofran -) 4 mg PO TID PRN PRN Reason: NAUSEA AND/OR VOMITING Polyethylene Glycol (Miralax (For Daily Use) -) 17 gm PO BID [facility] Last Admin: 04/27/19 09:40 Dose: 17 gm Rifaximin (Xifaxan -) 550 mg PO BID [facility] Last Admin: 04/27/19 09:39 Dose: 550 mg Senna (Senna -) 1 tab PO HS [facility] Last Admin: 04/26/19 21:14 Dose: 1 tab - Objective Vital Signs: Vital Signs Temperature 98.3 F 04/27/19 08:00 Pulse Rate 92 H 04/27/19 08:00 Respiratory Rate 16 04/27/19 08:00 Blood Pressure 132/56 L 04/27/19 08:00 O2 Sat by Pulse Oximetry (%) 97 04/27/19 08:00 Constitutional: Yes: Mild Distress Cardiovascular: Yes: Regular Rate and Rhythm Respiratory: Yes: Diminished, On Nasal O2 Gastrointestinal: Yes: Soft Genitourinary: Yes: Laguerre Present Musculoskeletal: Yes: Muscle Weakness Edema: No Integumentary: Yes: Other Neurological: Yes: Confusion, Pre-Existing Deficit Psychiatric: Yes: Other Labs: CBC, BMP 04/27/19 08:31 04/27/19 06:20 INR, PTT INR 1.54 (0.83-1.09) H 04/25/19 05:40 Problem List - Problems (1) CKD (chronic kidney disease) Code(s): N18.9 - CHRONIC KIDNEY DISEASE, UNSPECIFIED (2) Sepsis Code(s): A41.9 - SEPSIS, UNSPECIFIED ORGANISM (3) Acute cholecystitis Code(s): K81.0 - ACUTE CHOLECYSTITIS Assessment/Plan IV ABX STOPPED MONITOR LABS DVT PROPHYLAXIS ON PT EVAL WRIST RESTAINTS TO AVOID INTERUPTION WITH MEDICAL CARE OOB TO CHAIR BACK TO SNF WHEN TREATMENT COMPLETE BP SUPPORT ON PRESSORS TAPERED OFF IVF PLACEMENT SNF
[2019-04-27] MEDS: ERTAPENEM SODIUM 0.5 GM in SODIUM CHLORIDE 50 ML IVPB SCH (09:58)
[2019-04-27] MEDS ORDERED: ERGOCALCIFEROL (VIT D2) 50,000 UNIT (1.25 MG) CAPSULE PO SCH (10:00)
[2019-04-27 10:57] LABS: INR 1.52 (0.83-1.09)
[2019-04-27] MEDS ORDERED: METOPROLOL TARTRATE 5 MG/5 ML VIAL IVPUSH PRN (12:33)
[2019-04-27] MEDS ORDERED: ONDANSETRON 4 MG TABLET PO PRN (12:33)
--- NOTE | 2019-04-27 13:14 | PN ---
Progress Note, Physician History of Present Illness: AWAKE OFFERS NO COMPLAINTS AFEBRILE - Current Medication List Current Medications: Active Medications Albuterol Sulfate (Ventolin 0.083% Nebulizer Soln -) 1 amp NEB Q6H PRN PRN Reason: SHORT OF BREATH/WHEEZING Amlodipine Besylate (Norvasc -) 5 mg PO DAILY [facility] Last Admin: 04/27/19 09:39 Dose: Not Given Docusate Sodium (Colace -) 100 mg PO DAILY [facility] Ergocalciferol (Drisdol -) 50,000 unit PO Q7D@1000 [facility] Furosemide (Lasix Injection -) 40 mg IVPUSH BID@0600,1400 [facility] Ertapenem 0.5 gm/ Sodium (Chloride) 50 mls @ 100 mls/hr IVPB DAILY [facility] Famotidine/Sodium Chloride (Pepcid 20 Mg Premixed Ivpb -) 20 mg in 50 mls @ 100 mls/hr IVPB Q48H [facility] Lactulose (Cephulac (Oral Use)) 20 gm PO BID [facility] Metoprolol Tartrate (Lopressor Injection -) 5 mg IVPUSH ONCE PRN PRN Reason: TACHYCARDIA Midodrine (Proamatine -) 10 mg PO TID-MID [facility] Ondansetron HCl (Zofran -) 4 mg PO TID PRN PRN Reason: NAUSEA AND/OR VOMITING Polyethylene Glycol (Miralax (For Daily Use) -) 17 gm PO BID [facility] Rifaximin (Xifaxan -) 550 mg PO BID [facility] Senna (Senna -) 1 tab PO HS [facility] - Objective Vital Signs: Vital Signs Temperature 98.0 F 04/27/19 12:00 Pulse Rate 86 04/27/19 12:00 Respiratory Rate 17 04/27/19 12:00 Blood Pressure 124/52 L 04/27/19 12:00 O2 Sat by Pulse Oximetry (%) 97 04/27/19 08:00 Constitutional: Yes: No Distress Eyes: Yes: Conjunctiva Clear Cardiovascular: Yes: Regular Rate and Rhythm, S1, S2 Respiratory: Yes: CTA Bilaterally Gastrointestinal: Yes: Normal Bowel Sounds, Soft, Abdomen, Obese. No: Tenderness Edema: No Labs: CBC, BMP 04/27/19 08:31 04/27/19 06:20 INR, PTT INR 1.52 (0.83-1.09) H 04/27/19 09:00 Assessment/Plan SEPSIS HEPATORENAL SYNDROME CHRONIC LIVER DISEASE LEUKOCYTOSIS RESOLVED UTI ESBL CONTINUE ERTAPENEM
[2019-04-27] MEDS: FAMOTIDINE 20 MG/50 ML IVPB 20 MG/50 ML MG IVPB SCH (15:00)
[2019-04-27] MEDS: ALBUTEROL SO4 0.083% IH SOL 2.5 MG/3 ML VIAL.NEB. NEB PRN (20:45)
[2019-04-27] MEDS: SENNOSIDES 8.6MG TABLET (FP) PO SCH (21:27)
[2019-04-28] MEDS: FUROSEMIDE 40 MG/4 ML INJECTABLE VIAL IVPUSH SCH ×2 (06:12→14:47)
[2019-04-28 07:43] LABS: ALBUMIN 2.1 g/dl (3.4-5.0); BILIRUBIN,TOTAL 1.8 mg/dL (0.2-1); BLOOD UREA NITROGEN 98.8 mg/dL (7-18); CALCIUM 8.7 mg/dL (8.5-10.1); CREATININE 5.4 mg/dL (0.55-1.3); PHOSPHOROUS 5.8 mg/dL (2.5-4.9); POTASSIUM 4.3 mmol/L (3.5-5.1); TOT PROT 5.3 g/dl (6.4-8.2)
--- NOTE | 2019-04-28 08:49 | PN ---
Progress Note (short form) - Note Progress Note: Renal follow up for DAVID Coverage for Dr. Bagley Seen and examined at the bedside awake and alert no overnight events transferred to floor making urine Vital Signs Temperature 97.7 F 04/28/19 07:22 Pulse Rate 95 H 04/28/19 07:22 Respiratory Rate 18 04/28/19 07:22 Blood Pressure 124/55 L 04/28/19 07:22 O2 Sat by Pulse Oximetry (%) 97 04/27/19 21:00 Intake & Output 04/25/19 04/26/19 04/27/19 04/28/19 23:59 23:59 23:59 23:59 Intake Total 321.6 417.5 610 764 Output Total 800 1270 1000 400 Balance -478.4 -852.5 -390 364 Weight 75.115 kg 75.024 kg 74.933 kg 74.162 kg NAD awake and alert RRR Dec BS, no rales trace LE edema, + sacral edema CBC, BMP 04/27/19 08:31 04/28/19 06:10 Current Medications Albuterol Sulfate (Ventolin 0.083% Nebulizer Soln -) 1 amp NEB Q6H PRN PRN Reason: SHORT OF BREATH/WHEEZING Last Admin: 04/27/19 20:45 Dose: 1 amp Amlodipine Besylate (Norvasc -) 5 mg PO DAILY [facility] Last Admin: 04/27/19 09:39 Dose: Not Given Docusate Sodium (Colace -) 100 mg PO DAILY [facility] Ergocalciferol (Drisdol -) 50,000 unit PO Q7D@1000 [facility] Furosemide (Lasix Injection -) 40 mg IVPUSH BID@0600,1400 [facility] Last Admin: 04/28/19 06:12 Dose: 40 mg Ertapenem 0.5 gm/ Sodium (Chloride) 50 mls @ 100 mls/hr IVPB DAILY [facility] Famotidine/Sodium Chloride (Pepcid 20 Mg Premixed Ivpb -) 20 mg in 50 mls @ 100 mls/hr IVPB Q48H [facility] Last Admin: 04/27/19 15:00 Dose: 100 mls/hr Lactulose (Cephulac (Oral Use)) 20 gm PO BID [facility] Last Admin: 04/27/19 21:27 Dose: 20 gm Metoprolol Tartrate (Lopressor Injection -) 5 mg IVPUSH ONCE PRN PRN Reason: TACHYCARDIA Midodrine (Proamatine -) 10 mg PO TID-MID [facility] Last Admin: 04/27/19 17:36 Dose: 10 mg Ondansetron HCl (Zofran -) 4 mg PO TID PRN PRN Reason: NAUSEA AND/OR VOMITING Polyethylene Glycol (Miralax (For Daily Use) -) 17 gm PO BID [facility] Last Admin: 04/27/19 21:30 Dose: 17 gm Rifaximin (Xifaxan -) 550 mg PO BID [facility] Last Admin: 04/27/19 21:27 Dose: 550 mg Senna (Senna -) 1 tab PO HS [facility] Last Admin: 04/27/19 21:27 Dose: 1 tab Impression 1. DAVID 2. CKD 3. hep C cirrhosis 4. UTI 5. sepsis 6. ascites 7. hypervolemic hyponatremia 8. coagulopathy PLAN Renal function stable slowly improving and pt is non-oliguric no acute indication for DENTAL SPECIALIST continue IV Lasix BID for fluid management feUrea was 38% yesterday indicating some tubular injury Serologic work up negative thus far keep MAP > 65 Dose all meds for CrCl < 15 Thank you Jonathan Mcclellan DO
--- NOTE | 2019-04-28 09:37 | PN ---
Progress Note (short form) - Note Progress Note: Resting in NAD. No acute events overnight. Intake & Output 04/25/19 04/26/19 04/27/19 04/28/19 23:59 23:59 23:59 23:59 Intake Total 321.6 417.5 610 764 Output Total 800 1270 1000 400 Balance -478.4 -852.5 -390 364 Weight 165 lb 9.6 oz 165 lb 6.4 oz 165 lb 3.2 oz 163 lb 8 oz Last Vital Signs Temp Pulse Resp BP Pulse Ox 97.7 F 95 H 18 124/55 L 97 04/28/19 07:22 04/28/19 07:22 04/28/19 07:22 04/28/19 07:22 04/27/19 21:00 Active Medications Albuterol Sulfate (Ventolin 0.083% Nebulizer Soln -) 1 amp NEB Q6H PRN PRN Reason: SHORT OF BREATH/WHEEZING Last Admin: 04/27/19 20:45 Dose: 1 amp Amlodipine Besylate (Norvasc -) 5 mg PO DAILY [facility] Last Admin: 04/27/19 09:39 Dose: Not Given Calcium Acetate (Phoslo -) 667 mg PO TIDCM [facility] Docusate Sodium (Colace -) 100 mg PO DAILY [facility] Ergocalciferol (Drisdol -) 50,000 unit PO Q7D@1000 [facility] Furosemide (Lasix Injection -) 40 mg IVPUSH BID@0600,1400 [facility] Last Admin: 04/28/19 06:12 Dose: 40 mg Ertapenem 0.5 gm/ Sodium (Chloride) 50 mls @ 100 mls/hr IVPB DAILY [facility] Famotidine/Sodium Chloride (Pepcid 20 Mg Premixed Ivpb -) 20 mg in 50 mls @ 100 mls/hr IVPB Q48H [facility] Last Admin: 04/27/19 15:00 Dose: 100 mls/hr Lactulose (Cephulac (Oral Use)) 20 gm PO BID [facility] Last Admin: 04/27/19 21:27 Dose: 20 gm Metoprolol Tartrate (Lopressor Injection -) 5 mg IVPUSH ONCE PRN PRN Reason: TACHYCARDIA Midodrine (Proamatine -) 10 mg PO TID-MID [facility] Last Admin: 04/27/19 17:36 Dose: 10 mg Ondansetron HCl (Zofran -) 4 mg PO TID PRN PRN Reason: NAUSEA AND/OR VOMITING Polyethylene Glycol (Miralax (For Daily Use) -) 17 gm PO BID [facility] Last Admin: 04/27/19 21:30 Dose: 17 gm Rifaximin (Xifaxan -) 550 mg PO BID [facility] Last Admin: 04/27/19 21:27 Dose: 550 mg Senna (Senna -) 1 tab PO HS [facility] Last Admin: 04/27/19 21:27 Dose: 1 tab Gen: Awake and responsive but confused, NAD Heart: RRR Lung: decreased breath sounds at the bases, bilateral scattered rhonchi Abd: softly distended, +ascites Ext: decreased edema Laboratory Results - last 24 hr 04/27/19 04/27/19 04/28/19 09:00 09:00 06:10 PT with INR 18.00 H INR 1.52 H PTT (Actin FS) 35.0 Sodium 141 Potassium 4.3 Chloride 109 H Carbon Dioxide 23 Anion Gap 9 BUN 98.8 H Creatinine 5.4 H Est GFR (CKD-EPI)AfAm 8.73 Est GFR (CKD-EPI)NonAf 7.53 Random Glucose 89 Calcium 8.7 Phosphorus 5.8 H Total Bilirubin 1.8 H AST 51 H ALT 22 Alkaline Phosphatase 125 H Total Protein 5.3 L Albumin 2.1 L Ur Random Creatinine 62.0 Ur Random Sodium 59 Ur Random Urea Nitrogn 443 ASSESSMENT AND PLAN: UTI Resolved Septic Shock Acute Respiratory Failure Requiring HFOT Acute Kidney Injury Lactic Acidosis Hep C Cirrhosis Ascites Thrombocytopenia/Anemia h/o DVT - continue antibiotics per ID - continue midodrine - monitor urine output, creatinine - PO as tolerated - DVT prophylaxis - PO as tolerated Dr Valenzuela
[2019-04-28] MEDS: LACTULOSE 20 GM/30 ML UDC (FOR ORAL USE ONLY) PO SCH ×2 (09:41→21:08)
[2019-04-28] MEDS: DOCUSATE SODIUM 100 MG CAPSULE (FP) PO SCH (09:42)
[2019-04-28] MEDS: ERTAPENEM SODIUM 0.5 GM in SODIUM CHLORIDE 50 ML IVPB SCH (09:43)
[2019-04-28] MEDS: POLYETHYLENE GLYCOL 3350 119 GM BTL PO SCH ×2 (09:43→21:09)
[2019-04-28] MEDS: RIFAXIMIN 550 MG TABLET (UD) PO SCH ×2 (09:44→21:09)
[2019-04-28] MEDS: MIDODRINE HCL 5 MG TABLET PO SCH ×2 (09:44→14:47)
[2019-04-28] MEDS: amLODIPine BESYLATE 5 MG TABLET (FP) PO SCH (09:44)
[2019-04-28] MEDS: CALCIUM ACETATE 667 MG CAPSULE (FP) PO SCH ×2 (12:27→17:35)
--- NOTE | 2019-04-28 13:12 | PN.GI ---
GI Progress Note Subjective: No acute events Found sitting up, being fed by Nurse's aid Awake, alert Denies focal complaints - Objective Vital Signs: Vital Signs Temperature 98.0 F 04/28/19 10:00 Pulse Rate 101 H 04/28/19 10:00 Respiratory Rate 18 04/28/19 10:00 Blood Pressure 133/77 04/28/19 10:00 O2 Sat by Pulse Oximetry (%) 97 04/27/19 21:00 Constitutional: Calm Eyes: No: Sclera Icterus Cardiovascular: Yes: Tachycardia Respiratory: Yes: Diminished (at bases dilaterally with poor insp effort) Gastrointestinal Inspection: Yes: Distention ...Auscultate: Yes: Normoactive Bowel Sounds ...Palpate: Yes: Soft. No: Tenderness Neurological: Yes: Alert Labs: CBC, BMP 04/27/19 08:31 04/28/19 06:10 INR, PTT INR 1.52 (0.83-1.09) H 04/27/19 09:00 Problem List - Problems (1) Liver cirrhosis Assessment/Plan: Diagnostic paracentesis when able with fluid sent for cell count with diff, culture, total protein, albumin, cytology. Liver chemistries should be drawn same day as paracentesis. Renal following. Not clear picture of HRS. ? ATN Goals of care longterm? Would likely need evaluation at liver center once acute issues are resolved. Code(s): K74.60 - UNSPECIFIED CIRRHOSIS OF LIVER
--- NOTE | 2019-04-28 14:34 | PN ---
Progress Note, Physician History of Present Illness: AWAKE SL CONFUSED OFFERS NO COMPLAINTS AFEBRILE WBC WNL - Current Medication List Current Medications: Active Medications Albuterol Sulfate (Ventolin 0.083% Nebulizer Soln -) 1 amp NEB Q6H PRN PRN Reason: SHORT OF BREATH/WHEEZING Last Admin: 04/27/19 20:45 Dose: 1 amp Amlodipine Besylate (Norvasc -) 5 mg PO DAILY [facility] Last Admin: 04/28/19 09:44 Dose: 5 mg Calcium Acetate (Phoslo -) 667 mg PO TIDCM [facility] Last Admin: 04/28/19 12:27 Dose: 667 mg Docusate Sodium (Colace -) 100 mg PO DAILY [facility] Last Admin: 04/28/19 09:42 Dose: Not Given Ergocalciferol (Drisdol -) 50,000 unit PO Q7D@1000 [facility] Furosemide (Lasix Injection -) 40 mg IVPUSH BID@0600,1400 [facility] Last Admin: 04/28/19 06:12 Dose: 40 mg Ertapenem 0.5 gm/ Sodium (Chloride) 50 mls @ 100 mls/hr IVPB DAILY [facility] Last Admin: 04/28/19 09:43 Dose: 100 mls/hr Famotidine/Sodium Chloride (Pepcid 20 Mg Premixed Ivpb -) 20 mg in 50 mls @ 100 mls/hr IVPB Q48H [facility] Last Admin: 04/27/19 15:00 Dose: 100 mls/hr Lactulose (Cephulac (Oral Use)) 20 gm PO BID [facility] Last Admin: 04/28/19 09:41 Dose: 20 gm Metoprolol Tartrate (Lopressor Injection -) 5 mg IVPUSH ONCE PRN PRN Reason: TACHYCARDIA Midodrine (Proamatine -) 10 mg PO TID-MID [facility] Last Admin: 04/28/19 09:44 Dose: 10 mg Ondansetron HCl (Zofran -) 4 mg PO TID PRN PRN Reason: NAUSEA AND/OR VOMITING Polyethylene Glycol (Miralax (For Daily Use) -) 17 gm PO BID [facility] Last Admin: 04/28/19 09:43 Dose: Not Given Rifaximin (Xifaxan -) 550 mg PO BID [facility] Last Admin: 04/28/19 09:44 Dose: 550 mg Senna (Senna -) 1 tab PO HS [facility] Last Admin: 04/27/19 21:27 Dose: 1 tab - Objective Vital Signs: Vital Signs Temperature 98.0 F 04/28/19 10:00 Pulse Rate 101 H 04/28/19 10:00 Respiratory Rate 18 04/28/19 10:00 Blood Pressure 133/77 04/28/19 10:00 O2 Sat by Pulse Oximetry (%) 97 04/27/19 21:00 Constitutional: Yes: No Distress Eyes: Yes: Conjunctiva Clear Cardiovascular: Yes: Regular Rate and Rhythm, S2 Respiratory: Yes: CTA Bilaterally Gastrointestinal: Yes: Normal Bowel Sounds, Soft, Ascites. No: Tenderness Labs: CBC, BMP 04/27/19 08:31 04/28/19 06:10 INR, PTT INR 1.52 (0.83-1.09) H 04/27/19 09:00 Assessment/Plan SEPSIS HEPATORENAL SYNDROME CHRONIC LIVER DISEASE LEUKOCYTOSIS RESOLVED UTI ESBL CONTINUE ERTAPENEM
--- NOTE | 2019-04-28 15:59 | PN ---
Progress Note, Physician Chief Complaint: Sepsis Renal Failure Liver Cirrhosis History of Present Illness: Previous notes and events reviewed awake and responsive to name NAD no acute events reported no leukocytosis afebrile - Current Medication List Current Medications: Active Medications Albuterol Sulfate (Ventolin 0.083% Nebulizer Soln -) 1 amp NEB Q6H PRN PRN Reason: SHORT OF BREATH/WHEEZING Last Admin: 04/27/19 20:45 Dose: 1 amp Amlodipine Besylate (Norvasc -) 5 mg PO DAILY [facility] Last Admin: 04/28/19 09:44 Dose: 5 mg Calcium Acetate (Phoslo -) 667 mg PO TIDCM [facility] Last Admin: 04/28/19 12:27 Dose: 667 mg Docusate Sodium (Colace -) 100 mg PO DAILY [facility] Last Admin: 04/28/19 09:42 Dose: Not Given Ergocalciferol (Drisdol -) 50,000 unit PO Q7D@1000 [facility] Furosemide (Lasix Injection -) 40 mg IVPUSH BID@0600,1400 [facility] Last Admin: 04/28/19 14:47 Dose: 40 mg Ertapenem 0.5 gm/ Sodium (Chloride) 50 mls @ 100 mls/hr IVPB DAILY [facility] Last Admin: 04/28/19 09:43 Dose: 100 mls/hr Famotidine/Sodium Chloride (Pepcid 20 Mg Premixed Ivpb -) 20 mg in 50 mls @ 100 mls/hr IVPB Q48H [facility] Last Admin: 04/27/19 15:00 Dose: 100 mls/hr Lactulose (Cephulac (Oral Use)) 20 gm PO BID [facility] Last Admin: 04/28/19 09:41 Dose: 20 gm Metoprolol Tartrate (Lopressor Injection -) 5 mg IVPUSH ONCE PRN PRN Reason: TACHYCARDIA Midodrine (Proamatine -) 10 mg PO TID-MID [facility] Last Admin: 04/28/19 14:47 Dose: 10 mg Ondansetron HCl (Zofran -) 4 mg PO TID PRN PRN Reason: NAUSEA AND/OR VOMITING Polyethylene Glycol (Miralax (For Daily Use) -) 17 gm PO BID [facility] Last Admin: 04/28/19 09:43 Dose: Not Given Rifaximin (Xifaxan -) 550 mg PO BID [facility] Last Admin: 04/28/19 09:44 Dose: 550 mg Senna (Senna -) 1 tab PO HS [facility] Last Admin: 04/27/19 21:27 Dose: 1 tab - Objective Vital Signs: Vital Signs Temperature 96.5 F L 04/28/19 15:00 Pulse Rate 95 H 04/28/19 15:00 Respiratory Rate 18 04/28/19 15:00 Blood Pressure 133/77 04/28/19 10:00 O2 Sat by Pulse Oximetry (%) 97 04/27/19 21:00 Constitutional: Yes: No Distress, Calm Eyes: Yes: Conjunctiva Clear HENT: Yes: Atraumatic Cardiovascular: Yes: Regular Rate and Rhythm Respiratory: Yes: Regular, Diminished, On Nasal O2 Gastrointestinal: Yes: Normal Bowel Sounds, Soft Genitourinary: Yes: Incontinence Musculoskeletal: Yes: Muscle Weakness Extremities: Yes: WNL Edema: No Integumentary: Yes: Bruising Neurological: Yes: Alert, Confusion Psychiatric: Yes: Alert Labs: CBC, BMP 04/27/19 08:31 04/28/19 06:10 INR, PTT INR 1.52 (0.83-1.09) H 04/27/19 09:00 Microbiology 04/20/19 13:28 Blood - Peripheral Venous Blood Culture - Final NO GROWTH AFTER 5 DAYS INCUBATION 04/20/19 13:28 Blood - Peripheral Venous Blood Culture - Final NO GROWTH AFTER 5 DAYS INCUBATION 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 Coli 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 Problem List - Problems (1) CKD (chronic kidney disease) Assessment/Plan: -BUN/Cr 98.8/5.4 -Renal on board -monitor renal function daily -Renal US shows both kidneys appear unremarkable without evidence of hydronephrosis or gross renal stones Code(s): N18.9 - CHRONIC KIDNEY DISEASE, UNSPECIFIED (2) Abdominal pain Assessment/Plan: -Abdominal US done and shows liver cirrhosis with splenomegaly with significant amount of free fluid/ascites in upper abdomen and lower quadrants, thickening of gallbladder -GI on board Code(s): R10.9 - UNSPECIFIED ABDOMINAL PAIN (3) Altered mental state Assessment/Plan: -toxic metabolic encephalopathy due to dementia vs renal failure vs CKD Code(s): R41.82 - ALTERED MENTAL STATUS, UNSPECIFIED (4) CHF (congestive heart failure) Assessment/Plan: -daily weights -fluid restriction -strict I&Os -Furosemide -BNP 4540 Code(s): I50.9 - HEART FAILURE, UNSPECIFIED (5) 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 Assessment/Plan: -GI on board -Abdominal US shows liver cirrhosis with splenomegaly with significant amount of free fluid/ascites in upper abdomen and lower quadrants -AST 40 -will need to have discussion with family in regards to GOC, if aggressive treatment is warranted will need transfer to liver center for mangement of underlying chronic liver disease Code(s): B18.2 - CHRONIC VIRAL HEPATITIS C; K74.60 - UNSPECIFIED CIRRHOSIS OF LIVER (6) Hypertension Assessment/Plan: -Amlodipine Code(s): I10 - ESSENTIAL (PRIMARY) HYPERTENSION (7) Hypoxia Assessment/Plan: -Pulm on board -O2 via NC -keep SpO2 >90% -CXR shows mild congestive changes -bronchodilators -repeat CXR shows congestive and infiltrative changes Code(s): R09.02 - HYPOXEMIA (8) Urinary tract infection Assessment/Plan: -ID on board -no leukocytosis -afebrile -Ertapenem -UA shows 3+ leuks, 1+ bilirubin, 3+ blood -UC positive Code(s): N39.0 - URINARY TRACT INFECTION, SITE NOT SPECIFIED Qualifiers: Urinary tract infection type: site unspecified Hematuria presence: without hematuria Qualified Code(s): N39.0 - Urinary tract infection, site not specified (9) Sepsis Assessment/Plan: -ID consult -no leukocytosis -afebrile -Ertapenem -UA shows 3+ leuks, 1+ bilirubin, 3+ blood -UC positive -BC neg -LA 4.9~4.1~2.4~1.7 -CXR shows congestive and infiltrative changes Code(s): A41.9 - SEPSIS, UNSPECIFIED ORGANISM (10) DVT (deep venous thrombosis) Assessment/Plan: -Eliquis Code(s): I82.409 - ACUTE EMBOLISM AND THOMBOS UNSP DEEP VN UNSP LOWER EXTREMITY (11) Hyponatremia Assessment/Plan: -resolved -Na 141 -monitor electrolytes daily -renal on board Code(s): E87.1 - HYPO-OSMOLALITY AND HYPONATREMIA (12) Hypotension Assessment/Plan: -resolved Code(s): I95.9 - HYPOTENSION, UNSPECIFIED
[2019-04-28] MEDS: SENNOSIDES 8.6MG TABLET (FP) PO SCH (21:09)
[2019-04-29] MEDS: FUROSEMIDE 40 MG/4 ML INJECTABLE VIAL IVPUSH SCH ×2 (06:03→14:22)
[2019-04-29 08:07] LABS: BASO % 1.1 % (0-2.0); EOS % 0.7 % (0-4.5); HEMATOCRIT 27.3 % (32.4-45.2); HEMOGLOBIN 9.2 GM/dL (10.7-15.3); LYMPH % 12.5 % (8-40); MCH 31.4 pg (25.7-33.7); MCHC 33.8 g/dl (32.0-36.0); MEAN CELL VOLUME 92.9 fl (80-96); MEAN PLT VOLUME 8.3 fl (7.5-11.1); MONO % 10.1 % (3.8-10.2); NEUT % 75.6 % (42.8-82.8); PLATELET COUNT 120 K/MM3 (134-434); RBC 2.94 M/mm3 (3.60-5.2); RDW 19.8 % (11.6-15.6); WHITE BLOOD COUNT 9.1 K/mm3 (4.0-10.0)
[2019-04-29 08:35] LABS: ALBUMIN 2.3 g/dl (3.4-5.0); BILIRUBIN,TOTAL 2.1 mg/dL (0.2-1); BLOOD UREA NITROGEN 97.2 mg/dL (7-18); CALCIUM 8.9 mg/dL (8.5-10.1); CREATININE 4.9 mg/dL (0.55-1.3); MAGNESIUM 2.1 mg/dL (1.8-2.4); PHOSPHOROUS 5.6 mg/dL (2.5-4.9); POTASSIUM 4.6 mmol/L (3.5-5.1); TOT PROT 5.7 g/dl (6.4-8.2)
[2019-04-29] MEDS ORDERED: PT OWN MED DRAWER 7, Y5N ONE ×3 (08:48→16:40)
--- NOTE | 2019-04-29 08:53 | PN ---
Progress Note (short form) - Note Progress Note: Resting in NAD. No acute events overnight. Intake & Output 04/26/19 04/27/19 04/28/19 04/29/19 23:59 23:59 23:59 23:59 Intake Total 417.5 610 1264 Output Total 1270 1000 1700 400 Balance -852.5 -390 -436 -400 Weight 165 lb 6.4 oz 165 lb 3.2 oz 163 lb 8 oz 160 lb 8 oz Last Vital Signs Temp Pulse Resp BP Pulse Ox 98 F 97 H 20 121/55 L 98 04/29/19 06:00 04/29/19 06:00 04/29/19 08:00 04/29/19 06:00 04/29/19 08:00 Active Medications Albuterol Sulfate (Ventolin 0.083% Nebulizer Soln -) 1 amp NEB Q6H PRN PRN Reason: SHORT OF BREATH/WHEEZING Last Admin: 04/27/19 20:45 Dose: 1 amp Amlodipine Besylate (Norvasc -) 5 mg PO DAILY [facility] Last Admin: 04/28/19 09:44 Dose: 5 mg Calcium Acetate (Phoslo -) 667 mg PO TIDCM [facility] Last Admin: 04/28/19 17:35 Dose: 667 mg Docusate Sodium (Colace -) 100 mg PO DAILY [facility] Last Admin: 04/28/19 09:42 Dose: Not Given Ergocalciferol (Drisdol -) 50,000 unit PO Q7D@1000 [facility] Furosemide (Lasix Injection -) 40 mg IVPUSH BID@0600,1400 [facility] Last Admin: 04/29/19 06:03 Dose: 40 mg Ertapenem 0.5 gm/ Sodium (Chloride) 50 mls @ 100 mls/hr IVPB DAILY [facility] Last Admin: 04/28/19 09:43 Dose: 100 mls/hr Famotidine/Sodium Chloride (Pepcid 20 Mg Premixed Ivpb -) 20 mg in 50 mls @ 100 mls/hr IVPB Q48H [facility] Last Admin: 04/27/19 15:00 Dose: 100 mls/hr Lactulose (Cephulac (Oral Use)) 20 gm PO BID [facility] Last Admin: 04/28/19 21:08 Dose: Not Given Metoprolol Tartrate (Lopressor Injection -) 5 mg IVPUSH ONCE PRN PRN Reason: TACHYCARDIA Midodrine (Proamatine -) 10 mg PO TID-MID [facility] Last Admin: 04/28/19 14:47 Dose: 10 mg Ondansetron HCl (Zofran -) 4 mg PO TID PRN PRN Reason: NAUSEA AND/OR VOMITING Polyethylene Glycol (Miralax (For Daily Use) -) 17 gm PO BID [facility] Last Admin: 04/28/19 21:09 Dose: Not Given Rifaximin (Xifaxan -) 550 mg PO BID [facility] Last Admin: 04/28/19 21:09 Dose: 550 mg Senna (Senna -) 1 tab PO HS [facility] Last Admin: 04/28/19 21:09 Dose: Not Given Gen: Awake and responsive but confused, NAD Heart: RRR Lung: decreased breath sounds at the bases, bilateral scattered rhonchi Abd: softly distended, +ascites Ext: decreased edema Laboratory Results - last 24 hr 04/29/19 04/29/19 07:49 07:49 WBC 9.1 RBC 2.94 L Hgb 9.2 L Hct 27.3 L MCV 92.9 MCH 31.4 MCHC 33.8 RDW 19.8 H Plt Count 120 L D MPV 8.3 Absolute Neuts (auto) 6.9 Neutrophils % 75.6 Lymphocytes % 12.5 D Monocytes % 10.1 Eosinophils % 0.7 Basophils % 1.1 Nucleated RBC % 0 Sodium 143 Potassium 4.6 Chloride 111 H Carbon Dioxide 22 Anion Gap 9 BUN 97.2 H Creatinine 4.9 H Est GFR (CKD-EPI)AfAm 9.81 Est GFR (CKD-EPI)NonAf 8.47 Random Glucose 81 Calcium 8.9 Phosphorus 5.6 H Magnesium 2.1 Total Bilirubin 2.1 H AST 52 H ALT 20 Alkaline Phosphatase 134 H Total Protein 5.7 L Albumin 2.3 L ASSESSMENT AND PLAN: UTI Resolved Septic Shock Acute Respiratory Failure Requiring HFOT Acute Kidney Injury Lactic Acidosis Hep C Cirrhosis Ascites Thrombocytopenia/Anemia h/o DVT - continue antibiotics per ID - continue midodrine - monitor urine output, creatinine - PO as tolerated - DVT prophylaxis - PO as tolerated Dr Valenzuela
[2019-04-29] MEDS: CALCIUM ACETATE 667 MG CAPSULE (FP) PO SCH ×3 (09:00→17:14)
[2019-04-29] MEDS: POLYETHYLENE GLYCOL 3350 119 GM BTL PO SCH ×2 (09:54→22:20)
[2019-04-29] MEDS: RIFAXIMIN 550 MG TABLET (UD) PO SCH ×2 (09:54→22:21)
[2019-04-29] MEDS: LACTULOSE 20 GM/30 ML UDC (FOR ORAL USE ONLY) PO SCH ×2 (09:54→22:21)
[2019-04-29] MEDS: DOCUSATE SODIUM 100 MG CAPSULE (FP) PO SCH (09:54)
[2019-04-29] MEDS: amLODIPine BESYLATE 5 MG TABLET (FP) PO SCH (09:54)
[2019-04-29] MEDS: ERTAPENEM SODIUM 0.5 GM in SODIUM CHLORIDE 50 ML IVPB SCH (10:13)
--- NOTE | 2019-04-29 11:01 | PN ---
Progress Note, Physician Chief Complaint: seen and examined admitted for sepsis secondary to UTI - Current Medication List Current Medications: Active Medications Albuterol Sulfate (Ventolin 0.083% Nebulizer Soln -) 1 amp NEB Q6H PRN PRN Reason: SHORT OF BREATH/WHEEZING Last Admin: 04/27/19 20:45 Dose: 1 amp Amlodipine Besylate (Norvasc -) 5 mg PO DAILY [facility] Last Admin: 04/29/19 09:54 Dose: 5 mg Calcium Acetate (Phoslo -) 667 mg PO TIDCM [facility] Last Admin: 04/29/19 09:00 Dose: 667 mg Docusate Sodium (Colace -) 100 mg PO DAILY [facility] Last Admin: 04/29/19 09:54 Dose: 100 mg Ergocalciferol (Drisdol -) 50,000 unit PO Q7D@1000 [facility] Furosemide (Lasix Injection -) 40 mg IVPUSH BID@0600,1400 [facility] Last Admin: 04/29/19 06:03 Dose: 40 mg Ertapenem 0.5 gm/ Sodium (Chloride) 50 mls @ 100 mls/hr IVPB DAILY [facility] Last Admin: 04/29/19 10:13 Dose: 100 mls/hr Famotidine/Sodium Chloride (Pepcid 20 Mg Premixed Ivpb -) 20 mg in 50 mls @ 100 mls/hr IVPB Q48H [facility] Last Admin: 04/27/19 15:00 Dose: 100 mls/hr Lactulose (Cephulac (Oral Use)) 20 gm PO BID [facility] Last Admin: 04/29/19 09:54 Dose: 20 gm Metoprolol Tartrate (Lopressor Injection -) 5 mg IVPUSH ONCE PRN PRN Reason: TACHYCARDIA Midodrine (Proamatine -) 10 mg PO TID-MID [facility] Last Admin: 04/28/19 14:47 Dose: 10 mg Ondansetron HCl (Zofran -) 4 mg PO TID PRN PRN Reason: NAUSEA AND/OR VOMITING Polyethylene Glycol (Miralax (For Daily Use) -) 17 gm PO BID [facility] Last Admin: 04/29/19 09:54 Dose: 17 gm Rifaximin (Xifaxan -) 550 mg PO BID [facility] Last Admin: 04/29/19 09:54 Dose: 550 mg Senna (Senna -) 1 tab PO HS [facility] Last Admin: 04/28/19 21:09 Dose: Not Given - Objective Vital Signs: Vital Signs Temperature 98 F 04/29/19 06:00 Pulse Rate 97 H 04/29/19 06:00 Respiratory Rate 20 04/29/19 08:00 Blood Pressure 121/55 L 04/29/19 06:00 O2 Sat by Pulse Oximetry (%) 98 04/29/19 08:00 Constitutional: Yes: Calm, Thin Cardiovascular: Yes: Regular Rate and Rhythm, S1, S2 Respiratory: Yes: Diminished Gastrointestinal: Yes: Normal Bowel Sounds, Soft Genitourinary: Yes: Laguerre Present Edema: No Labs: CBC, BMP 04/29/19 07:49 04/29/19 07:49 INR, PTT INR 1.52 (0.83-1.09) H 04/27/19 09:00 Problem List - Problems (1) Respiratory distress Assessment/Plan: resolved off prssors and HFOT out of icu on med floor Code(s): R06.03 - ACUTE RESPIRATORY DISTRESS (2) Sepsis Assessment/Plan: on ertrapenem Microbiology 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 Coli Esbl Fastener Technologist wbc count trending down leukocytosis improving and mental status improve off pressors Code(s): A41.9 - SEPSIS, UNSPECIFIED ORGANISM (3) Acute renal failure Assessment/Plan: renal sono no hydronephrosis and no obstruction creatinine trending down renal on board, monitor renal urine output Code(s): N17.9 - ACUTE KIDNEY FAILURE, UNSPECIFIED (4) Coagulopathy Assessment/Plan: vitamin K and FFP as needed secondary to cirrhosis Code(s): D68.9 - COAGULATION DEFECT, UNSPECIFIED (5) Liver cirrhosis Assessment/Plan: rifaximin lacutlose Code(s): K74.60 - UNSPECIFIED CIRRHOSIS OF LIVER (6) Dysphagia Assessment/Plan: seen by swallow team dysphagia pureed with honey thick Code(s): R13.10 - DYSPHAGIA, UNSPECIFIED (7) Hyponatremia Assessment/Plan: hepato renal syndrome monitor sodium renal on board Code(s): E87.1 - HYPO-OSMOLALITY AND HYPONATREMIA (8) DVT (deep venous thrombosis) Assessment/Plan: ida rust for now Code(s): I82.409 - ACUTE EMBOLISM AND THOMBOS UNSP DEEP VN UNSP LOWER EXTREMITY (9) Hypotension Assessment/Plan: keep MAP > 55 off presors today midodrine Code(s): I95.9 - HYPOTENSION, UNSPECIFIED
--- NOTE | 2019-04-29 11:15 | PN ---
Progress Note, BACKEND TESTER - Note Progress Note: Selected Entries 04/25/19 04/25/19 04/25/19 02:00 06:00 07:58 Breakfast Supper Temperature 97.5 F L 97.6 F 98.6 F 04/25/19 04/25/19 04/25/19 10:00 14:00 18:00 Breakfast Supper Temperature 98.6 F 99.8 F H 98.6 F 04/25/19 04/25/19 04/26/19 20:00 22:34 00:00 Breakfast Supper 0 Temperature 98.6 F 98.2 F 04/26/19 04/26/19 04/26/19 02:00 06:00 10:00 Breakfast 75% Supper Temperature 97.8 F 97.7 F 97.6 F Laboratory Tests 04/24/19 04/25/19 04/26/19 05:50 05:40 06:00 WBC 10.1 H 10.9 H 11.4 H Selected Entries 04/28/19 04/28/19 04/28/19 07:22 10:00 15:00 Breakfast 100% Lunch 100% Supper Temperature 97.7 F 98.0 F 96.5 F L 04/28/19 04/28/19 04/28/19 16:53 20:54 22:00 Breakfast Lunch Supper 75% Temperature 97.6 F 98.0 F 04/29/19 04/29/19 06:00 10:00 Breakfast 100% Lunch Supper Temperature 98 F Laboratory Tests 04/29/19 07:49 WBC 9.1 Tolerating diet well Pt would benefit from mbs to r/o aspiration and provide most liberal diet pt can tolerate.
[2019-04-29] MEDS: ALBUTEROL SO4 0.083% IH SOL 2.5 MG/3 ML VIAL.NEB. NEB PRN (13:12)
[2019-04-29] MEDS: FAMOTIDINE 20 MG/50 ML IVPB 20 MG/50 ML MG IVPB SCH (14:22)
--- NOTE | 2019-04-29 15:01 | PN ---
Progress Note, Physician History of Present Illness: Pt seen and examined at bedside. SHe is awake and alert. She feels that her breathing is improved. - Current Medication List Current Medications: Active Medications Albuterol Sulfate (Ventolin 0.083% Nebulizer Soln -) 1 amp NEB Q6H PRN PRN Reason: SHORT OF BREATH/WHEEZING Last Admin: 04/29/19 13:12 Dose: 1 amp Amlodipine Besylate (Norvasc -) 5 mg PO DAILY [facility] Last Admin: 04/29/19 09:54 Dose: 5 mg Calcium Acetate (Phoslo -) 667 mg PO TIDCM [facility] Last Admin: 04/29/19 12:06 Dose: 667 mg Docusate Sodium (Colace -) 100 mg PO DAILY [facility] Last Admin: 04/29/19 09:54 Dose: 100 mg Ergocalciferol (Drisdol -) 50,000 unit PO Q7D@1000 [facility] Furosemide (Lasix Injection -) 40 mg IVPUSH BID@0600,1400 [facility] Last Admin: 04/29/19 14:22 Dose: 40 mg Ertapenem 0.5 gm/ Sodium (Chloride) 50 mls @ 100 mls/hr IVPB DAILY [facility] Last Admin: 04/29/19 10:13 Dose: 100 mls/hr Famotidine/Sodium Chloride (Pepcid 20 Mg Premixed Ivpb -) 20 mg in 50 mls @ 100 mls/hr IVPB Q48H [facility] Last Admin: 04/29/19 14:22 Dose: 100 mls/hr Lactulose (Cephulac (Oral Use)) 20 gm PO BID [facility] Last Admin: 04/29/19 09:54 Dose: 20 gm Metoprolol Tartrate (Lopressor Injection -) 5 mg IVPUSH ONCE PRN PRN Reason: TACHYCARDIA Midodrine (Proamatine -) 10 mg PO TID-MID [facility] Last Admin: 04/28/19 14:47 Dose: 10 mg Ondansetron HCl (Zofran -) 4 mg PO TID PRN PRN Reason: NAUSEA AND/OR VOMITING Polyethylene Glycol (Miralax (For Daily Use) -) 17 gm PO BID [facility] Last Admin: 04/29/19 09:54 Dose: 17 gm Rifaximin (Xifaxan -) 550 mg PO BID [facility] Last Admin: 04/29/19 09:54 Dose: 550 mg Senna (Senna -) 1 tab PO HS [facility] Last Admin: 04/28/19 21:09 Dose: Not Given - Objective Vital Signs: Vital Signs Temperature 98 F 04/29/19 06:00 Pulse Rate 97 H 04/29/19 06:00 Respiratory Rate 20 04/29/19 09:00 Blood Pressure 121/55 L 04/29/19 06:00 O2 Sat by Pulse Oximetry (%) 98 04/29/19 09:00 Constitutional: Yes: Calm Eyes: Yes: Conjunctiva Clear HENT: Yes: Atraumatic Neck: Yes: Supple Cardiovascular: Yes: S1, S2 Respiratory: Yes: CTA Bilaterally Gastrointestinal: Yes: Soft, Ascites Genitourinary: Yes: Laguerre Present Musculoskeletal: Yes: WNL Edema: Yes Edema: LLE: Trace, RLE: Trace Neurological: Yes: Oriented Psychiatric: Yes: Oriented Labs: CBC, BMP 04/29/19 07:49 04/29/19 07:49 INR, PTT INR 1.52 (0.83-1.09) H 04/27/19 09:00 Assessment/Plan Current Medications Generic Name Dose Route Start Last Admin Trade Name Freq PRN Reason Stop Dose Admin Albuterol Sulfate 1 amp 04/27/19 12:33 04/29/19 13:12 Ventolin 0.083% Nebulizer Soln - NEB 1 amp Q6H PRN Administration SHORT OF BREATH/WHEEZING Amlodipine Besylate 5 mg 04/27/19 10:00 04/29/19 09:54 Norvasc - PO 5 mg DAILY [facility] Administration Calcium Acetate 667 mg 04/28/19 12:00 04/29/19 12:06 Phoslo - PO 667 mg TIDCM [facility] Administration Docusate Sodium 100 mg 04/28/19 10:00 04/29/19 09:54 Colace - PO 100 mg DAILY [facility] Administration Ergocalciferol 50,000 unit 05/04/19 10:00 Drisdol - PO Q7D@1000 [facility] Furosemide 40 mg 04/27/19 14:00 04/29/19 14:22 Lasix Injection - IVPUSH 40 mg BID@0600,1400 [facility] Administration Ertapenem 0.5 gm/ Sodium 50 mls @ 100 mls/hr 04/28/19 10:00 04/29/19 10:13 Chloride IVPB 100 mls/hr DAILY [facility] Administration Famotidine/Sodium Chloride 20 mg in 50 mls @ 100 mls/hr 04/27/19 14:45 14:22 Pepcid 20 Mg Premixed Ivpb - IVPB 100 mls/hr Q48H [facility] Administration Lactulose 20 gm 04/27/19 22:00 04/29/19 09:54 Cephulac (Oral Use) PO 20 gm BID [facility] Administration Metoprolol Tartrate 5 mg 04/27/19 12:33 Lopressor Injection - IVPUSH ONCE PRN TACHYCARDIA Midodrine 10 mg 04/27/19 14:00 04/28/19 14:47 Proamatine - PO 10 mg TID-MID [facility] Administration Ondansetron HCl 4 mg 04/27/19 12:33 Zofran - PO TID PRN NAUSEA AND/OR VOMITING Polyethylene Glycol 17 gm 04/27/19 22:00 04/29/19 09:54 Miralax (For Daily Use) - PO 17 gm BID [facility] Administration Rifaximin 550 mg 04/27/19 22:00 04/29/19 09:54 Xifaxan - PO 550 mg BID [facility] Administration Senna 1 tab 04/27/19 22:00 04/28/19 21:09 Senna - PO Not Given HS [facility] Impression 1. DAVID 2. CKD 3. hep C cirrhosis 4. UTI 5. sepsis 6. ascites 7. hypervolemic hyponatremia 8. coagulopathy PLAN - renal function is improving - cont with lasix - repeat labs in am - monitor bp - pressors to a map of 65 - renal workup in progress
[2019-04-29] MEDS: SENNOSIDES 8.6MG TABLET (FP) PO SCH (22:21)
[2019-04-30] MEDS: FUROSEMIDE 40 MG/4 ML INJECTABLE VIAL IVPUSH SCH ×2 (05:29→13:20)
--- NOTE | 2019-04-30 09:24 | PN ---
Progress Note (short form) - Note Progress Note: NAD on NC O2. Apparently was agitated overnight and kept removing her O2. Confused. No acute events overnight. Intake & Output 04/27/19 04/28/19 04/29/19 04/30/19 23:59 23:59 23:59 23:59 Intake Total 610 1264 100 4 Output Total 1000 1700 1300 400 Balance -390 -436 -1200 -396 Weight 165 lb 3.2 oz 163 lb 8 oz 160 lb 8 oz Last Vital Signs Temp Pulse Resp BP Pulse Ox 97.7 F 99 H 20 122/60 97 04/30/19 06:36 04/30/19 06:36 04/30/19 06:36 04/30/19 06:36 04/30/19 03:58 Active Medications Albuterol Sulfate (Ventolin 0.083% Nebulizer Soln -) 1 amp NEB Q6H PRN PRN Reason: SHORT OF BREATH/WHEEZING Last Admin: 04/29/19 13:12 Dose: 1 amp Amlodipine Besylate (Norvasc -) 5 mg PO DAILY [facility] Last Admin: 04/29/19 09:54 Dose: 5 mg Calcium Acetate (Phoslo -) 667 mg PO TIDCM [facility] Last Admin: 04/29/19 17:14 Dose: 667 mg Docusate Sodium (Colace -) 100 mg PO DAILY [facility] Last Admin: 04/29/19 09:54 Dose: 100 mg Ergocalciferol (Drisdol -) 50,000 unit PO Q7D@1000 [facility] Furosemide (Lasix Injection -) 40 mg IVPUSH BID@0600,1400 [facility] Last Admin: 04/30/19 05:29 Dose: 40 mg Ertapenem 0.5 gm/ Sodium (Chloride) 50 mls @ 100 mls/hr IVPB DAILY [facility] Last Admin: 04/29/19 10:13 Dose: 100 mls/hr Famotidine/Sodium Chloride (Pepcid 20 Mg Premixed Ivpb -) 20 mg in 50 mls @ 100 mls/hr IVPB Q48H [facility] Last Admin: 04/29/19 14:22 Dose: 100 mls/hr Lactulose (Cephulac (Oral Use)) 20 gm PO BID [facility] Last Admin: 04/29/19 22:21 Dose: 20 gm Metoprolol Tartrate (Lopressor Injection -) 5 mg IVPUSH ONCE PRN PRN Reason: TACHYCARDIA Midodrine (Proamatine -) 10 mg PO TID-MID [facility] Last Admin: 04/28/19 14:47 Dose: 10 mg Ondansetron HCl (Zofran -) 4 mg PO TID PRN PRN Reason: NAUSEA AND/OR VOMITING Polyethylene Glycol (Miralax (For Daily Use) -) 17 gm PO BID [facility] Last Admin: 04/29/19 22:20 Dose: 17 gm Rifaximin (Xifaxan -) 550 mg PO BID [facility] Last Admin: 04/29/19 22:21 Dose: 550 mg Senna (Senna -) 1 tab PO HS [facility] Last Admin: 04/29/19 22:21 Dose: 1 tab Gen: Awake and responsive but confused, NAD Heart: RRR Lung: decreased breath sounds at the bases, bilateral scattered rhonchi Abd: softly distended, +ascites Ext: decreased edema ASSESSMENT AND PLAN: UTI Resolved Septic Shock Acute Respiratory Failure Requiring HFOT Acute Kidney Injury Lactic Acidosis Hep C Cirrhosis Ascites Thrombocytopenia/Anemia h/o DVT - Antibiotics per ID - Midodrine - PO as tolerated - DVT prophylaxis - Aspiration precautions Dr Valenzuela
[2019-04-30] MEDS ORDERED: PT OWN MED DRAWER 7, Y5N ONE ×3 (09:44→18:48)
[2019-04-30] MEDS: CALCIUM ACETATE 667 MG CAPSULE (FP) PO SCH ×3 (09:47→17:03)
[2019-04-30] MEDS: LACTULOSE 20 GM/30 ML UDC (FOR ORAL USE ONLY) PO SCH ×2 (09:47→22:22)
[2019-04-30] MEDS: RIFAXIMIN 550 MG TABLET (UD) PO SCH ×2 (09:48→22:22)
[2019-04-30] MEDS: amLODIPine BESYLATE 5 MG TABLET (FP) PO SCH (09:48)
[2019-04-30] MEDS: DOCUSATE SODIUM 100 MG CAPSULE (FP) PO SCH (09:48)
[2019-04-30] MEDS: ERTAPENEM SODIUM 0.5 GM in SODIUM CHLORIDE 50 ML IVPB SCH (09:48)
[2019-04-30] MEDS: POLYETHYLENE GLYCOL 3350 119 GM BTL PO SCH ×2 (09:50→22:22)
[2019-04-30 10:33] LABS: ALBUMIN 2.4 g/dl (3.4-5.0); BLOOD UREA NITROGEN 99.1 mg/dL (7-18); CREATININE 4.7 mg/dL (0.55-1.3); MAGNESIUM 2.2 mg/dL (1.8-2.4); PHOSPHOROUS 5.6 mg/dL (2.5-4.9); POTASSIUM 4.3 mmol/L (3.5-5.1); TOT PROT 5.9 g/dl (6.4-8.2)
--- NOTE | 2019-04-30 11:14 | PN ---
Progress Note, DICE PERSON - Note Progress Note: Selected Entries 04/29/19 04/29/19 04/29/19 06:00 10:00 14:00 Breakfast 100% Lunch Temperature 98 F 98.2 F 97.6 F 04/29/19 04/29/19 04/30/19 15:53 16:20 06:36 Breakfast Lunch 100% Temperature 97.1 F L 97.7 F Laboratory Tests 04/30/19 09:50 Sodium 147 H BUN 99.1 H MBS completed. Diet upgrade recommended. However, pt still on puree/honey which may still be indicated. Pt was tachypneic last night/confused, which would adversely affect swallowing function. Continue puree/honey thick for now.
--- NOTE | 2019-04-30 14:35 | PN ---
Progress Note, Physician History of Present Illness: Pt seen and examined at bedside. She is awake and appears fatigued. She has poor po intake. - Current Medication List Current Medications: Active Medications Albuterol Sulfate (Ventolin 0.083% Nebulizer Soln -) 1 amp NEB Q6H PRN PRN Reason: SHORT OF BREATH/WHEEZING Last Admin: 04/29/19 13:12 Dose: 1 amp Amlodipine Besylate (Norvasc -) 5 mg PO DAILY [facility] Last Admin: 04/30/19 09:48 Dose: 5 mg Calcium Acetate (Phoslo -) 667 mg PO TIDCM [facility] Last Admin: 04/30/19 13:20 Dose: 667 mg Docusate Sodium (Colace -) 100 mg PO DAILY [facility] Last Admin: 04/30/19 09:48 Dose: 100 mg Ergocalciferol (Drisdol -) 50,000 unit PO Q7D@1000 [facility] Furosemide (Lasix Injection -) 40 mg IVPUSH DAILY [facility] Ertapenem 0.5 gm/ Sodium (Chloride) 50 mls @ 100 mls/hr IVPB DAILY [facility] Last Admin: 04/30/19 09:48 Dose: 100 mls/hr Famotidine/Sodium Chloride (Pepcid 20 Mg Premixed Ivpb -) 20 mg in 50 mls @ 100 mls/hr IVPB Q48H [facility] Last Admin: 04/29/19 14:22 Dose: 100 mls/hr Lactulose (Cephulac (Oral Use)) 20 gm PO BID [facility] Last Admin: 04/30/19 09:47 Dose: 20 gm Metoprolol Tartrate (Lopressor Injection -) 5 mg IVPUSH ONCE PRN PRN Reason: TACHYCARDIA Midodrine (Proamatine -) 10 mg PO TID-MID [facility] Last Admin: 04/28/19 14:47 Dose: 10 mg Ondansetron HCl (Zofran -) 4 mg PO TID PRN PRN Reason: NAUSEA AND/OR VOMITING Polyethylene Glycol (Miralax (For Daily Use) -) 17 gm PO BID [facility] Last Admin: 04/30/19 09:50 Dose: 17 gm Rifaximin (Xifaxan -) 550 mg PO BID [facility] Last Admin: 04/30/19 09:48 Dose: 550 mg Senna (Senna -) 1 tab PO HS [facility] Last Admin: 04/29/19 22:21 Dose: 1 tab - Objective Vital Signs: Vital Signs Temperature 97.6 F 04/30/19 10:00 Pulse Rate 91 H 04/30/19 10:00 Respiratory Rate 20 04/30/19 10:00 Blood Pressure 115/70 04/30/19 10:00 O2 Sat by Pulse Oximetry (%) 98 04/30/19 09:00 Constitutional: Yes: Calm Eyes: Yes: Conjunctiva Clear HENT: Yes: Atraumatic Cardiovascular: Yes: S1, S2 Gastrointestinal: Yes: Normal Bowel Sounds, Soft Genitourinary: Yes: Laguerre Present Edema: Yes Edema: LLE: Trace, RLE: Trace Neurological: Yes: Confusion Labs: CBC, BMP 04/29/19 07:49 04/30/19 09:50 INR, PTT INR 1.52 (0.83-1.09) H 04/27/19 09:00 Assessment/Plan Current Medications Generic Name Dose Route Start Last Admin Trade Name Freq PRN Reason Stop Dose Admin Albuterol Sulfate 1 amp 04/27/19 12:33 04/29/19 13:12 Ventolin 0.083% Nebulizer Soln - NEB 1 amp Q6H PRN Administration SHORT OF BREATH/WHEEZING Amlodipine Besylate 5 mg 04/27/19 10:00 04/30/19 09:48 Norvasc - PO 5 mg DAILY [facility] Administration Calcium Acetate 667 mg 04/28/19 12:00 04/30/19 13:20 Phoslo - PO 667 mg TIDCM [facility] Administration Docusate Sodium 100 mg 04/28/19 10:00 04/30/19 09:48 Colace - PO 100 mg DAILY [facility] Administration Ergocalciferol 50,000 unit 05/04/19 10:00 Drisdol - PO Q7D@1000 [facility] Furosemide 40 mg 05/01/19 10:00 Lasix Injection - IVPUSH DAILY [facility] Ertapenem 0.5 gm/ Sodium 50 mls @ 100 mls/hr 04/28/19 10:00 04/30/19 09:48 Chloride IVPB 100 mls/hr DAILY [facility] Administration Famotidine/Sodium Chloride 20 mg in 50 mls @ 100 mls/hr 04/27/19 14:45 14:22 Pepcid 20 Mg Premixed Ivpb - IVPB 100 mls/hr Q48H [facility] Administration Lactulose 20 gm 04/27/19 22:00 04/30/19 09:47 Cephulac (Oral Use) PO 20 gm BID [facility] Administration Metoprolol Tartrate 5 mg 04/27/19 12:33 Lopressor Injection - IVPUSH ONCE PRN TACHYCARDIA Midodrine 10 mg 04/27/19 14:00 04/28/19 14:47 Proamatine - PO 10 mg TID-MID [facility] Administration Ondansetron HCl 4 mg 04/27/19 12:33 Zofran - PO TID PRN NAUSEA AND/OR VOMITING Polyethylene Glycol 17 gm 04/27/19 22:00 04/30/19 09:50 Miralax (For Daily Use) - PO 17 gm BID [facility] Administration Rifaximin 550 mg 04/27/19 22:00 04/30/19 09:48 Xifaxan - PO 550 mg BID [facility] Administration Senna 1 tab 04/27/19 22:00 04/29/19 22:21 Senna - PO 1 tab HS [facility] Administration Impression 1. DAVID 2. CKD 3. hep C cirrhosis 4. UTI 5. sepsis 6. ascites 7. hypervolemic hyponatremia 8. coagulopathy PLAN - cont to monitor renal function - repeat labs in am - lasix prn - gi follow up for liver corrhosis - cont midodrine - pulm input appreciated - renal workup in progress
--- NOTE | 2019-04-30 15:47 | PN ---
Progress Note, Physician Chief Complaint: Sepsis Renal Failure Liver Cirrhosis History of Present Illness: Previous notes and events reviewed awake and responsive to name NAD periods of confusion last night MBS done and recommendations reviewed no leukocytosis afebrile - Current Medication List Current Medications: Active Medications Albuterol Sulfate (Ventolin 0.083% Nebulizer Soln -) 1 amp NEB Q6H PRN PRN Reason: SHORT OF BREATH/WHEEZING Last Admin: 04/29/19 13:12 Dose: 1 amp Amlodipine Besylate (Norvasc -) 5 mg PO DAILY [facility] Last Admin: 04/30/19 09:48 Dose: 5 mg Calcium Acetate (Phoslo -) 667 mg PO TIDCM [facility] Last Admin: 04/30/19 13:20 Dose: 667 mg Docusate Sodium (Colace -) 100 mg PO DAILY [facility] Last Admin: 04/30/19 09:48 Dose: 100 mg Ergocalciferol (Drisdol -) 50,000 unit PO Q7D@1000 [facility] Furosemide (Lasix Injection -) 40 mg IVPUSH DAILY [facility] Ertapenem 0.5 gm/ Sodium (Chloride) 50 mls @ 100 mls/hr IVPB DAILY [facility] Last Admin: 04/30/19 09:48 Dose: 100 mls/hr Famotidine/Sodium Chloride (Pepcid 20 Mg Premixed Ivpb -) 20 mg in 50 mls @ 100 mls/hr IVPB Q48H [facility] Last Admin: 04/29/19 14:22 Dose: 100 mls/hr Lactulose (Cephulac (Oral Use)) 20 gm PO BID [facility] Last Admin: 04/30/19 09:47 Dose: 20 gm Metoprolol Tartrate (Lopressor Injection -) 5 mg IVPUSH ONCE PRN PRN Reason: TACHYCARDIA Midodrine (Proamatine -) 10 mg PO TID-MID [facility] Last Admin: 04/28/19 14:47 Dose: 10 mg Ondansetron HCl (Zofran -) 4 mg PO TID PRN PRN Reason: NAUSEA AND/OR VOMITING Polyethylene Glycol (Miralax (For Daily Use) -) 17 gm PO BID [facility] Last Admin: 04/30/19 09:50 Dose: 17 gm Rifaximin (Xifaxan -) 550 mg PO BID [facility] Last Admin: 04/30/19 09:48 Dose: 550 mg Senna (Senna -) 1 tab PO HS [facility] Last Admin: 04/29/19 22:21 Dose: 1 tab - Objective Vital Signs: Vital Signs Temperature 97.9 F 04/30/19 14:00 Pulse Rate 104 H 04/30/19 14:00 Respiratory Rate 20 04/30/19 14:00 Blood Pressure 124/71 04/30/19 14:00 O2 Sat by Pulse Oximetry (%) 98 04/30/19 09:00 Constitutional: Yes: No Distress, Calm Eyes: Yes: Conjunctiva Clear HENT: Yes: Atraumatic Cardiovascular: Yes: Regular Rate and Rhythm Respiratory: Yes: Regular, Diminished, On Nasal O2 Gastrointestinal: Yes: Normal Bowel Sounds, Soft Genitourinary: Yes: Laguerre Present Musculoskeletal: Yes: Muscle Weakness Extremities: Yes: WNL Edema: No Neurological: Yes: Alert, Confusion Psychiatric: Yes: Alert Labs: CBC, BMP 04/29/19 07:49 04/30/19 09:50 INR, PTT INR 1.52 (0.83-1.09) H 04/27/19 09:00 Microbiology 04/20/19 13:28 Blood - Peripheral Venous Blood Culture - Final NO GROWTH AFTER 5 DAYS INCUBATION 04/20/19 13:28 Blood - Peripheral Venous Blood Culture - Final NO GROWTH AFTER 5 DAYS INCUBATION 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 Coli Esbl [employer] Problem List - Problems (1) CKD (chronic kidney disease) Assessment/Plan: -BUN/Cr 99.1/4.7 -Renal on board -monitor renal function daily -Renal US shows both kidneys appear unremarkable without evidence of hydronephrosis or gross renal stones Code(s): N18.9 - CHRONIC KIDNEY DISEASE, UNSPECIFIED (2) Abdominal pain Assessment/Plan: -Abdominal US done and shows liver cirrhosis with splenomegaly with significant amount of free fluid/ascites in upper abdomen and lower quadrants, thickening of gallbladder -GI on board Code(s): R10.9 - UNSPECIFIED ABDOMINAL PAIN (3) Altered mental state Assessment/Plan: -toxic metabolic encephalopathy due to dementia vs renal failure vs CKD -aspiration precaution -trial of dysphagia ground diet and nectar thick liquid Code(s): R41.82 - ALTERED MENTAL STATUS, UNSPECIFIED (4) CHF (congestive heart failure) Assessment/Plan: -daily weights -fluid restriction -strict I&Os -Furosemide -BNP 4540 Code(s): I50.9 - HEART FAILURE, UNSPECIFIED (5) 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 Assessment/Plan: -GI on board -Abdominal US shows liver cirrhosis with splenomegaly with significant amount of free fluid/ascites in upper abdomen and lower quadrants -AST 40 -will need to have discussion with family in regards to GOC, if aggressive treatment is warranted will need transfer to liver center for mangement of underlying chronic liver disease Code(s): B18.2 - CHRONIC VIRAL HEPATITIS C; K74.60 - UNSPECIFIED CIRRHOSIS OF LIVER (6) Hypertension Assessment/Plan: -Amlodipine Code(s): I10 - ESSENTIAL (PRIMARY) HYPERTENSION (7) Hypoxia Assessment/Plan: -Pulm on board -O2 via NC -keep SpO2 >90% -CXR shows mild congestive changes -bronchodilators -repeat CXR shows congestive and infiltrative changes Code(s): R09.02 - HYPOXEMIA (8) Urinary tract infection Assessment/Plan: -ID on board -no leukocytosis -afebrile -Ertapenem -UA shows 3+ leuks, 1+ bilirubin, 3+ blood -UC positive Code(s): N39.0 - URINARY TRACT INFECTION, SITE NOT SPECIFIED Qualifiers: Urinary tract infection type: site unspecified Hematuria presence: without hematuria Qualified Code(s): N39.0 - Urinary tract infection, site not specified (9) Sepsis Assessment/Plan: -ID consult -no leukocytosis -afebrile -Ertapenem -UA shows 3+ leuks, 1+ bilirubin, 3+ blood -UC positive -BC neg -LA 4.9~4.1~2.4~1.7 -CXR shows congestive and infiltrative changes Code(s): A41.9 - SEPSIS, UNSPECIFIED ORGANISM (10) DVT (deep venous thrombosis) Assessment/Plan: -Eliquis Code(s): I82.409 - ACUTE EMBOLISM AND THOMBOS UNSP DEEP VN UNSP LOWER EXTREMITY (11) Hyponatremia Assessment/Plan: -resolved -Na 147 -monitor electrolytes daily -renal on board Code(s): E87.1 - HYPO-OSMOLALITY AND HYPONATREMIA (12) Hypotension Assessment/Plan: -resolved Code(s): I95.9 - HYPOTENSION, UNSPECIFIED Assessment/Plan see problem list palliative consult
[2019-04-30] MEDS: MIDODRINE HCL 5 MG TABLET PO SCH (18:33)
[2019-04-30] MEDS: SENNOSIDES 8.6MG TABLET (FP) PO SCH (22:22)
[2019-05-01 08:31] LABS: HEMATOCRIT 25.5 % (32.4-45.2); HEMOGLOBIN 8.5 GM/dL (10.7-15.3); MCH 31.5 pg (25.7-33.7); MCHC 33.3 g/dl (32.0-36.0); MEAN CELL VOLUME 94.6 fl (80-96); MEAN PLT VOLUME 8.3 fl (7.5-11.1); PLATELET COUNT 130 K/MM3 (134-434); RBC 2.69 M/mm3 (3.60-5.2); RDW 19.7 % (11.6-15.6); WHITE BLOOD COUNT 10.3 K/mm3 (4.0-10.0)
[2019-05-01] MEDS: CALCIUM ACETATE 667 MG CAPSULE (FP) PO SCH ×3 (08:53→17:54)
[2019-05-01 09:09] LABS: ALBUMIN 2.3 g/dl (3.4-5.0); BILIRUBIN,TOTAL 2.1 mg/dL (0.2-1); BLOOD UREA NITROGEN 94.8 mg/dL (7-18); CALCIUM 9.1 mg/dL (8.5-10.1); CREATININE 4.4 mg/dL (0.55-1.3); POTASSIUM 4.3 mmol/L (3.5-5.1); TOT PROT 5.8 g/dl (6.4-8.2)
--- NOTE | 2019-05-01 10:49 | PN.GI ---
GI Progress Note Subjective: Pt seen/examined at bedside, sitting up, mentation appears to be fluctuating slightly per staff, denies abdominal pain, n/v. Tolerating dysphagia pureed diet. - Objective Vital Signs: Vital Signs Temperature 98.4 F 05/01/19 06:44 Pulse Rate 99 H 05/01/19 06:44 Respiratory Rate 20 05/01/19 06:44 Blood Pressure 127/68 05/01/19 06:44 O2 Sat by Pulse Oximetry (%) 98 04/30/19 09:00 Constitutional: No Distress, Calm Cardiovascular: Yes: WNL, Regular Rate and Rhythm Respiratory: Yes: WNL, Regular, CTA Bilaterally ...Palpate: Yes: Other (Abd soft, nontender, nondistended) Edema: No Labs: CBC, BMP 05/01/19 08:15 05/01/19 08:15 INR, PTT INR 1.52 (0.83-1.09) H 04/27/19 09:00 Assessment/Plan 68yo female with HCV, cirrhosis, dementia, CHF with lethargy found to have ESBL UTI on ertapenem with acute on chronic renal disease. Slowly improving creatinine. Slight leucocytosis today. -Dysphagia pureed diet as tolerated -Continue rifaximin -Continue lactulose titrate to 2-3 loose bms -Repeat abd US to assess for ascites -Diagnostic tap when possible r/o SBP and send fluid for cell count culture, total protein, albumin, cytology -Monitor wcc trend -Goals of care still to be clarified - informed by primary team that pts daughter will be present tomorrow for family meeting. -Continue midodrine -Further recommendations per renal and ID Discussed with medicine team
[2019-05-01] MEDS: ERTAPENEM SODIUM 0.5 GM in SODIUM CHLORIDE 50 ML IVPB SCH (12:02)
[2019-05-01] MEDS: LACTULOSE 20 GM/30 ML UDC (FOR ORAL USE ONLY) PO SCH ×2 (12:02→22:30)
[2019-05-01] MEDS: RIFAXIMIN 550 MG TABLET (UD) PO SCH ×2 (12:03→22:28)
[2019-05-01] MEDS: DOCUSATE SODIUM 100 MG CAPSULE (FP) PO SCH (12:03)
[2019-05-01] MEDS: amLODIPine BESYLATE 5 MG TABLET (FP) PO SCH (12:03)
[2019-05-01] MEDS: MIDODRINE HCL 5 MG TABLET PO SCH ×3 (12:03→17:54)
[2019-05-01] MEDS: FUROSEMIDE 40 MG/4 ML INJECTABLE VIAL IVPUSH SCH ×2 (12:04→12:57)
[2019-05-01] MEDS: POLYETHYLENE GLYCOL 3350 119 GM BTL PO SCH ×2 (12:05→22:14)
--- NOTE | 2019-05-01 12:11 | PN ---
Progress Note, Physician Chief Complaint: Sepsis Renal Failure Liver Cirrhosis History of Present Illness: Previous notes and events reviewed awake and responsive to name NAD MBS done and recommendations reviewed leukocytosis afebrile - Current Medication List Current Medications: Active Medications Albuterol Sulfate (Ventolin 0.083% Nebulizer Soln -) 1 amp NEB Q6H PRN PRN Reason: SHORT OF BREATH/WHEEZING Last Admin: 04/29/19 13:12 Dose: 1 amp Amlodipine Besylate (Norvasc -) 5 mg PO DAILY [facility] Last Admin: 05/01/19 12:03 Dose: 5 mg Calcium Acetate (Phoslo -) 667 mg PO TIDCM [facility] Last Admin: 05/01/19 12:03 Dose: 667 mg Docusate Sodium (Colace -) 100 mg PO DAILY [facility] Last Admin: 05/01/19 12:03 Dose: 100 mg Ergocalciferol (Drisdol -) 50,000 unit PO Q7D@1000 [facility] Furosemide (Lasix Injection -) 40 mg IVPUSH DAILY [facility] Last Admin: 05/01/19 12:04 Dose: 40 mg Ertapenem 0.5 gm/ Sodium (Chloride) 50 mls @ 100 mls/hr IVPB DAILY [facility] Last Admin: 05/01/19 12:02 Dose: 100 mls/hr Famotidine/Sodium Chloride (Pepcid 20 Mg Premixed Ivpb -) 20 mg in 50 mls @ 100 mls/hr IVPB Q48H [facility] Last Admin: 04/29/19 14:22 Dose: 100 mls/hr Lactulose (Cephulac (Oral Use)) 20 gm PO BID [facility] Last Admin: 05/01/19 12:02 Dose: 20 gm Metoprolol Tartrate (Lopressor Injection -) 5 mg IVPUSH ONCE PRN PRN Reason: TACHYCARDIA Midodrine (Proamatine -) 10 mg PO TID-MID [facility] Last Admin: 05/01/19 12:03 Dose: 10 mg Ondansetron HCl (Zofran -) 4 mg PO TID PRN PRN Reason: NAUSEA AND/OR VOMITING Polyethylene Glycol (Miralax (For Daily Use) -) 17 gm PO BID [facility] Last Admin: 05/01/19 12:05 Dose: Not Given Rifaximin (Xifaxan -) 550 mg PO BID [facility] Last Admin: 05/01/19 12:03 Dose: 550 mg Senna (Senna -) 1 tab PO HS [facility] Last Admin: 04/30/19 22:22 Dose: 1 tab - Objective Vital Signs: Vital Signs Temperature 98.4 F 05/01/19 06:44 Pulse Rate 99 H 05/01/19 06:44 Respiratory Rate 20 05/01/19 06:44 Blood Pressure 127/68 05/01/19 06:44 O2 Sat by Pulse Oximetry (%) 98 04/30/19 09:00 Constitutional: Yes: No Distress, Calm Eyes: Yes: Conjunctiva Clear HENT: Yes: Atraumatic Cardiovascular: Yes: Regular Rate and Rhythm Respiratory: Yes: Regular, Diminished, On Nasal O2 Gastrointestinal: Yes: Normal Bowel Sounds, Soft Genitourinary: Yes: Laguerre Present Musculoskeletal: Yes: Muscle Weakness Extremities: Yes: WNL Edema: No Neurological: Yes: Alert, Confusion Psychiatric: Yes: Alert Labs: CBC, BMP 05/01/19 08:15 05/01/19 08:15 INR, PTT INR 1.52 (0.83-1.09) H 04/27/19 09:00 Microbiology 04/20/19 13:28 Blood - Peripheral Venous Blood Culture - Final NO GROWTH AFTER 5 DAYS INCUBATION 04/20/19 13:28 Blood - Peripheral Venous Blood Culture - Final NO GROWTH AFTER 5 DAYS INCUBATION 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 Coli 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 [employer] Problem List - Problems (1) CKD (chronic kidney disease) Assessment/Plan: -BUN/Cr 94.8/4.4 -Renal on board -monitor renal function daily -Renal US shows both kidneys appear unremarkable without evidence of hydronephrosis or gross renal stones Code(s): N18.9 - CHRONIC KIDNEY DISEASE, UNSPECIFIED (2) Abdominal pain Assessment/Plan: -Abdominal US done and shows liver cirrhosis with splenomegaly with significant amount of free fluid/ascites in upper abdomen and lower quadrants, thickening of gallbladder -GI on board -ABdominal US~GI recommend diagnostic paracentesis to eval fluid for cell count with diff, culture, total protein, albumin, cytology Code(s): R10.9 - UNSPECIFIED ABDOMINAL PAIN (3) Altered mental state Assessment/Plan: -toxic metabolic encephalopathy due to dementia vs renal failure vs CKD -aspiration precaution -trial of dysphagia ground diet and nectar thick liquid Code(s): R41.82 - ALTERED MENTAL STATUS, UNSPECIFIED (4) CHF (congestive heart failure) Assessment/Plan: -daily weights -fluid restriction -strict I&Os -Furosemide -BNP 4540 Code(s): I50.9 - HEART FAILURE, UNSPECIFIED (5) 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 Assessment/Plan: -GI on board -Abdominal US shows liver cirrhosis with splenomegaly with significant amount of free fluid/ascites in upper abdomen and lower quadrants -AST 40 -will need to have discussion with family in regards to GOC, if aggressive treatment is warranted will need transfer to liver center for mangement of underlying chronic liver disease -ABdominal US~GI recommend diagnostic paracentesis to eval fluid for cell count with diff, culture, total protein, albumin, cytology Code(s): B18.2 - CHRONIC VIRAL HEPATITIS C; K74.60 - UNSPECIFIED CIRRHOSIS OF LIVER (6) Hypertension Assessment/Plan: -Amlodipine Code(s): I10 - ESSENTIAL (PRIMARY) HYPERTENSION (7) Hypoxia Assessment/Plan: -Pulm on board -O2 via NC -keep SpO2 >90% -CXR shows mild congestive changes -bronchodilators -repeat CXR shows congestive and infiltrative changes Code(s): R09.02 - HYPOXEMIA (8) Urinary tract infection Assessment/Plan: -ID on board -no leukocytosis -afebrile -Ertapenem -UA shows 3+ leuks, 1+ bilirubin, 3+ blood -UC positive Code(s): N39.0 - URINARY TRACT INFECTION, SITE NOT SPECIFIED Qualifiers: Urinary tract infection type: site unspecified Hematuria presence: without hematuria Qualified Code(s): N39.0 - Urinary tract infection, site not specified (9) Sepsis Assessment/Plan: -ID consult -leukocytosis -afebrile -Ertapenem -UA shows 3+ leuks, 1+ bilirubin, 3+ blood -UC positive -BC neg -LA 4.9~4.1~2.4~1.7 -CXR shows congestive and infiltrative changes Code(s): A41.9 - SEPSIS, UNSPECIFIED ORGANISM (10) DVT (deep venous thrombosis) Assessment/Plan: -Eliquis Code(s): I82.409 - ACUTE EMBOLISM AND THOMBOS UNSP DEEP VN UNSP LOWER EXTREMITY (11) Hyponatremia Assessment/Plan: -resolved -Na 148 -monitor electrolytes daily -renal on board Code(s): E87.1 - HYPO-OSMOLALITY AND HYPONATREMIA (12) Hypotension Assessment/Plan: -resolved Code(s): I95.9 - HYPOTENSION, UNSPECIFIED Assessment/Plan see problem list palliative consult patient daughter will be coming tomorrow, will need to have family meeting to discuss GOC and aggressive vs conservative treatment
--- NOTE | 2019-05-01 13:47 | PN ---
Progress Note, Physician History of Present Illness: Pt seen and examined at bedside. She is awake and alert. Her PO intake is improved. - Current Medication List Current Medications: Active Medications Albuterol Sulfate (Ventolin 0.083% Nebulizer Soln -) 1 amp NEB Q6H PRN PRN Reason: SHORT OF BREATH/WHEEZING Last Admin: 04/29/19 13:12 Dose: 1 amp Amlodipine Besylate (Norvasc -) 5 mg PO DAILY [facility] Last Admin: 05/01/19 12:03 Dose: 5 mg Calcium Acetate (Phoslo -) 667 mg PO TIDCM [facility] Last Admin: 05/01/19 12:03 Dose: 667 mg Docusate Sodium (Colace -) 100 mg PO DAILY [facility] Last Admin: 05/01/19 12:03 Dose: 100 mg Ergocalciferol (Drisdol -) 50,000 unit PO Q7D@1000 [facility] Furosemide (Lasix Injection -) 40 mg IVPUSH DAILY [facility] Last Admin: 05/01/19 12:57 Dose: Not Given Ertapenem 0.5 gm/ Sodium (Chloride) 50 mls @ 100 mls/hr IVPB DAILY [facility] Last Admin: 05/01/19 12:02 Dose: 100 mls/hr Famotidine/Sodium Chloride (Pepcid 20 Mg Premixed Ivpb -) 20 mg in 50 mls @ 100 mls/hr IVPB Q48H [facility] Last Admin: 04/29/19 14:22 Dose: 100 mls/hr Lactulose (Cephulac (Oral Use)) 20 gm PO BID [facility] Last Admin: 05/01/19 12:02 Dose: 20 gm Metoprolol Tartrate (Lopressor Injection -) 5 mg IVPUSH ONCE PRN PRN Reason: TACHYCARDIA Midodrine (Proamatine -) 10 mg PO TID-MID [facility] Last Admin: 05/01/19 12:03 Dose: 10 mg Ondansetron HCl (Zofran -) 4 mg PO TID PRN PRN Reason: NAUSEA AND/OR VOMITING Polyethylene Glycol (Miralax (For Daily Use) -) 17 gm PO BID [facility] Last Admin: 05/01/19 12:05 Dose: Not Given Rifaximin (Xifaxan -) 550 mg PO BID [facility] Last Admin: 05/01/19 12:03 Dose: 550 mg Senna (Senna -) 1 tab PO HS [facility] Last Admin: 04/30/19 22:22 Dose: 1 tab - Objective Vital Signs: Vital Signs Temperature 98.4 F 05/01/19 06:44 Pulse Rate 98 H 05/01/19 10:00 Respiratory Rate 18 05/01/19 10:00 Blood Pressure 124/74 05/01/19 10:00 O2 Sat by Pulse Oximetry (%) 98 04/30/19 09:00 Constitutional: Yes: Calm Eyes: Yes: Conjunctiva Clear HENT: Yes: Atraumatic Cardiovascular: Yes: S1, S2 Respiratory: Yes: CTA Bilaterally Gastrointestinal: Yes: Soft Genitourinary: Yes: Laguerre Present Edema: No Neurological: Yes: Oriented Psychiatric: Yes: Oriented Labs: CBC, BMP 05/01/19 08:15 05/01/19 08:15 INR, PTT INR 1.52 (0.83-1.09) H 04/27/19 09:00 Assessment/Plan Current Medications Generic Name Dose Route Start Last Admin Trade Name Freq PRN Reason Stop Dose Admin Albuterol Sulfate 1 amp 04/27/19 12:33 04/29/19 13:12 Ventolin 0.083% Nebulizer Soln - NEB 1 amp Q6H PRN Administration SHORT OF BREATH/WHEEZING Amlodipine Besylate 5 mg 04/27/19 10:00 05/01/19 12:03 Norvasc - PO 5 mg DAILY [facility] Administration Calcium Acetate 667 mg 04/28/19 12:00 05/01/19 12:03 Phoslo - PO 667 mg TIDCM [facility] Administration Docusate Sodium 100 mg 04/28/19 10:00 05/01/19 12:03 Colace - PO 100 mg DAILY [facility] Administration Ergocalciferol 50,000 unit 05/04/19 10:00 Drisdol - PO Q7D@1000 [facility] Furosemide 40 mg 05/01/19 10:00 05/01/19 12:57 Lasix Injection - IVPUSH Not Given DAILY [facility] Ertapenem 0.5 gm/ Sodium 50 mls @ 100 mls/hr 04/28/19 10:00 05/01/19 12:02 Chloride IVPB 100 mls/hr DAILY [facility] Administration Famotidine/Sodium Chloride 20 mg in 50 mls @ 100 mls/hr 04/27/19 14:45 14:22 Pepcid 20 Mg Premixed Ivpb - IVPB 100 mls/hr Q48H [facility] Administration Lactulose 20 gm 04/27/19 22:00 05/01/19 12:02 Cephulac (Oral Use) PO 20 gm BID [facility] Administration Metoprolol Tartrate 5 mg 04/27/19 12:33 Lopressor Injection - IVPUSH ONCE PRN TACHYCARDIA Midodrine 10 mg 04/27/19 14:00 05/01/19 12:03 Proamatine - PO 10 mg TID-MID [facility] Administration Ondansetron HCl 4 mg 04/27/19 12:33 Zofran - PO TID PRN NAUSEA AND/OR VOMITING Polyethylene Glycol 17 gm 04/27/19 22:00 05/01/19 12:05 Miralax (For Daily Use) - PO Not Given BID [facility] Rifaximin 550 mg 04/27/19 22:00 05/01/19 12:03 Xifaxan - PO 550 mg BID [facility] Administration Senna 1 tab 04/27/19 22:00 04/30/19 22:22 Senna - PO 1 tab HS [facility] Administration Impression 1. DAVID 2. CKD 3. hep C cirrhosis 4. UTI 5. sepsis 6. ascites 7. hypervolemic hyponatremia 8. coagulopathy PLAN - renal function is improving - follow up rheum edgard - daughter is coming tomorrow to discuss GOC - lasix prn, held today - gi follow up for liver corrhosis - cont midodrine - renal workup in progress
--- NOTE | 2019-05-01 15:06 | PN ---
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
--- NOTE | 2019-05-01 15:19 | PN ---
Progress Note (short form) - Note Progress Note: PULMONARY Confused. Denies shortness of breath. Vital Signs Period Temp Pulse Resp BP Sys/Bolaños Pulse Ox Last 24 Hr 97.3 F-98.4 F 98-117 18-22 124-132/68-74 Gen: confused, mildly tachypneic Heart: RRR, +systolic murmur Lung: decreased breath sounds at the bases Abd: softly distended, nontender Ext: no edema CBC, BMP 05/01/19 08:15 05/01/19 08:15 Active Medications Albuterol Sulfate (Ventolin 0.083% Nebulizer Soln -) 1 amp NEB Q6H PRN PRN Reason: SHORT OF BREATH/WHEEZING Last Admin: 04/29/19 13:12 Dose: 1 amp Amlodipine Besylate (Norvasc -) 5 mg PO DAILY [facility] Last Admin: 05/01/19 12:03 Dose: 5 mg Calcium Acetate (Phoslo -) 667 mg PO TIDCM [facility] Last Admin: 05/01/19 12:03 Dose: 667 mg Docusate Sodium (Colace -) 100 mg PO DAILY [facility] Last Admin: 05/01/19 12:03 Dose: 100 mg Ergocalciferol (Drisdol -) 50,000 unit PO Q7D@1000 [facility] Furosemide (Lasix Injection -) 40 mg IVPUSH DAILY [facility] Last Admin: 05/01/19 12:57 Dose: Not Given Ertapenem 0.5 gm/ Sodium (Chloride) 50 mls @ 100 mls/hr IVPB DAILY [facility] Last Admin: 05/01/19 12:02 Dose: 100 mls/hr Famotidine/Sodium Chloride (Pepcid 20 Mg Premixed Ivpb -) 20 mg in 50 mls @ 100 mls/hr IVPB Q48H [facility] Last Admin: 04/29/19 14:22 Dose: 100 mls/hr Lactulose (Cephulac (Oral Use)) 20 gm PO BID [facility] Last Admin: 05/01/19 12:02 Dose: 20 gm Metoprolol Tartrate (Lopressor Injection -) 5 mg IVPUSH ONCE PRN PRN Reason: TACHYCARDIA Midodrine (Proamatine -) 10 mg PO TID-MID [facility] Last Admin: 05/01/19 12:03 Dose: 10 mg Ondansetron HCl (Zofran -) 4 mg PO TID PRN PRN Reason: NAUSEA AND/OR VOMITING Polyethylene Glycol (Miralax (For Daily Use) -) 17 gm PO BID [facility] Last Admin: 05/01/19 12:05 Dose: Not Given Rifaximin (Xifaxan -) 550 mg PO BID [facility] Last Admin: 05/01/19 12:03 Dose: 550 mg Senna (Senna -) 1 tab PO HS [facility] Last Admin: 04/30/19 22:22 Dose: 1 tab A/P UTI Resolved Septic Shock Acute Respiratory Failure Requiring HFOT Acute Kidney Injury Lactic Acidosis Hep C Cirrhosis Ascites Thrombocytopenia/Anemia h/o DVT - antibiotics per ID - continue midodrine - lactulose, rifaximin - PO as tolerated - aspiration precautions - DVT prophylaxis
--- NOTE | 2019-05-01 16:22 | CONSULT ---
Consult Consult Specialty:: Rheumatology - History of Present Illness History of Present Illness: 68 year old female with history of HCV cirrhosis, (HCV not treated), portal hypertension with ascites, dementia, chronic UTI, DVT on Eliquis, prob IVC thrombosis, admitted with hypoglycemia, hypotension and s/p fall. Patient has chronic renal insufficiency and low complement. The patient does not contribute to the history., On admission she was found to have ecchymoses and petechiae diffusely. The patient has had hematuria since 2013 with intermittent proteinuria. Elevation of creatinine since 09/18/18. In the present admission creatinine 4.1, UA with protein 1+ and blood 3+, AST 56 and ALT 20. M spike not observed. JOSE A, rheumatoid factor, ANCA, myelopreoxidase, proteinase-3 and glomerular basal memebrane AB. were all negative. Complement was decreased (C3:74 AND c4: 10). \ - History Source History Provided By: Medical Record - Past Medical History DICE TABLE PERSON: Yes: Dementia Cardio/Vascular: Yes: HTN, Murmur Gastrointestinal: Yes: Other (cirrhosis) Hepatobiliary: Yes: Cirrhosis, Hepatitis C Infectious Disease: Yes: Other (hep c) Psych: Yes: Anxiety, Other ENT: Yes: Other (hearing loss--uses hearing aides) Additional Medical History: [place] uses hearing aide. no documented history of tb or hepatitis - Alcohol/Substance Use Hx Alcohol Use: No History of Substance Use: reports: None - Smoking History Smoking history: Never smoked Have you smoked in the past 12 months: No - Social History Usual Living Arrangement: With Significant Other ADL: Family Assistance History of Recent Travel: No Home Medications - Allergies Allergies/Adverse Reactions: Allergies Allergy/AdvReac Type Severity Reaction Status Date / Time No Known Allergies Allergy Verified 01/08/19 13:25 - Home Medications Home Medications: Ambulatory Orders Furosemide [Lasix] 40 mg PO BID 01/08/19 Ergocalciferol [Vitamin D2] 50,000 unit PO Q7D@1000 #4 capsule 01/14/19 Metoprolol Succinate [Toprol XL -] 25 mg PO DAILY #30 tab.sr.24h 01/14/19 Apixaban [Eliquis] 2.5 mg PO BID 04/20/19 Ondansetron [Zofran -] 4 mg PO TID 04/20/19 Spironolactone 75 mg PO BID 04/20/19 Lactulose 10 gm PO HS 04/21/19 Physical Exam Vital Signs: Vital Signs Temperature 97.7 F 05/01/19 15:00 Pulse Rate 100 H 05/01/19 15:00 Respiratory Rate 18 05/01/19 15:00 Blood Pressure 116/64 05/01/19 15:00 O2 Sat by Pulse Oximetry (%) 98 04/30/19 09:00 Constitutional: Yes: No Distress (No response to simple questions.) Eyes: Yes: WNL HENT: Yes: WNL Neck: Yes: WNL Cardiovascular: Yes: WNL Respiratory: Yes: WNL Gastrointestinal: Yes: Ascites Musculoskeletal: Yes: Other (No active joints.) Labs: CBC, BMP 05/01/19 08:15 05/01/19 08:15 Laboratory Tests 04/21/19 04/22/19 04/23/19 05:55 05:55 05:00 PT with INR INR Total Bilirubin AST ALT Alkaline Phosphatase Total Protein Albumin Urine Color Urine Appearance Urine pH Ur Specific [place] Urine Protein Urine Glucose (UA) Urine Ketones Urine Blood Urine Nitrite Urine Bilirubin Urine Urobilinogen Ur Leukocyte Esterase Urine WBC (Auto) RADHA M-Tristen Not observed Serum Cryoglobulins Pending Rheumatoid Factor < 10.0 JOSE A Screen Negative c-ANCA Proteinase 3 (PR3) p-ANCA Atypical p-ANCA Myeloperoxidase Ab Double Strand DNA Ab Glomerular Base Memb Ab Complement C3 Complement C4 04/23/19 04/24/19 04/26/19 05:00 05:41 14:00 PT with INR INR Total Bilirubin AST ALT Alkaline Phosphatase Total Protein Albumin Urine Color Yellow Urine Appearance Cloudy Urine pH 5.0 Ur Specific [place] 1.011 Urine Protein 1+ H Urine Glucose (UA) Negative Urine Ketones Negative Urine Blood 3+ H Urine Nitrite Negative Urine Bilirubin Negative Urine Urobilinogen 0.2 Ur Leukocyte Esterase Trace Urine WBC (Auto) 1 RADHA M-Tristen Serum Cryoglobulins Rheumatoid Factor JOSE A Screen c-ANCA <1:20 Proteinase 3 (PR3) <3.5 p-ANCA <1:20 Atypical p-ANCA <1:20 Myeloperoxidase Ab <9.0 Double Strand DNA Ab <1 Glomerular Base Memb Ab 3 Complement C3 74 L Complement C4 10 L 04/27/19 05/01/19 09:00 08:15 PT with INR 18.00 H INR 1.52 H Total Bilirubin 2.1 H AST 56 H ALT 20 Alkaline Phosphatase 148 H Total Protein 5.8 L Albumin 2.3 L Urine Color Urine Appearance Urine pH Ur Specific [place] Urine Protein Urine Glucose (UA) Urine Ketones Urine Blood Urine Nitrite Urine Bilirubin Urine Urobilinogen Ur Leukocyte Esterase Urine WBC (Auto) RADHA M-Tristen Serum Cryoglobulins Rheumatoid Factor JOSE A Screen c-ANCA Proteinase 3 (PR3) p-ANCA Atypical p-ANCA Myeloperoxidase Ab Double Strand DNA Ab Glomerular Base Memb Ab Complement C3 Complement C4 Problem List - Problems (1) Hypocomplementemia Assessment/Plan: Hepatitis C untreated with cirrhosis, chronic kidney disease and hypocomplementemia. On admission the patient had petecchiae. 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 Based on the fact that she has cirrhosis I do not suggest any additional treatment (such as Rituximab). Even if cryoglobulins are reported as negative (difficult to detect due to sample collection methodology), I do not think she has any additional connective tissue disease. Code(s): D84.1 - DEFECTS IN THE COMPLEMENT SYSTEM
[2019-05-01] MEDS: FAMOTIDINE 20 MG/50 ML IVPB 20 MG/50 ML MG IVPB SCH (16:26)
--- NOTE | 2019-05-01 18:41 | PN ---
Progress Note (short form) - Note Progress Note: alert being fed dinner day #11 antibiotics Vital Signs Period Temp Pulse Resp BP Sys/Bolaños Pulse Ox Last 24 Hr 97.3 F-98.4 F 98-114 18-22 116-132/64-74 cor-rrr lungs decreased bs at bases abd soft, +ascites ext trace edema tolentino CBC, BMP 05/01/19 08:15 05/01/19 08:15 Microbiology 04/20/19 13:28 Blood - Peripheral Venous Blood Culture - Final NO GROWTH AFTER 5 DAYS INCUBATION 04/20/19 13:28 Blood - Peripheral Venous Blood Culture - Final NO GROWTH AFTER 5 DAYS INCUBATION 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 Coli [facility] Current Medications Albuterol Sulfate (Ventolin 0.083% Nebulizer Soln -) 1 amp NEB Q6H PRN PRN Reason: SHORT OF BREATH/WHEEZING Last Admin: 04/29/19 13:12 Dose: 1 amp Amlodipine Besylate (Norvasc -) 5 mg PO DAILY [facility] Last Admin: 05/01/19 12:03 Dose: 5 mg Calcium Acetate (Phoslo -) 667 mg PO TIDCM [facility] Last Admin: 05/01/19 17:54 Dose: 667 mg Docusate Sodium (Colace -) 100 mg PO DAILY [facility] Last Admin: 05/01/19 12:03 Dose: 100 mg Ergocalciferol (Drisdol -) 50,000 unit PO Q7D@1000 [facility] Furosemide (Lasix Injection -) 40 mg IVPUSH DAILY [facility] Last Admin: 05/01/19 12:57 Dose: Not Given Ertapenem 0.5 gm/ Sodium (Chloride) 50 mls @ 100 mls/hr IVPB DAILY [facility] Last Admin: 05/01/19 12:02 Dose: 100 mls/hr Famotidine/Sodium Chloride (Pepcid 20 Mg Premixed Ivpb -) 20 mg in 50 mls @ 100 mls/hr IVPB Q48H [facility] Last Admin: 05/01/19 16:26 Dose: 100 mls/hr Lactulose (Cephulac (Oral Use)) 20 gm PO BID [facility] Last Admin: 05/01/19 12:02 Dose: 20 gm Metoprolol Tartrate (Lopressor Injection -) 5 mg IVPUSH ONCE PRN PRN Reason: TACHYCARDIA Midodrine (Proamatine -) 10 mg PO TID-MID [facility] Last Admin: 05/01/19 17:54 Dose: 10 mg Ondansetron HCl (Zofran -) 4 mg PO TID PRN PRN Reason: NAUSEA AND/OR VOMITING Polyethylene Glycol (Miralax (For Daily Use) -) 17 gm PO BID [facility] Last Admin: 05/01/19 12:05 Dose: Not Given Rifaximin (Xifaxan -) 550 mg PO BID [facility] Last Admin: 05/01/19 12:03 Dose: 550 mg Senna (Senna -) 1 tab PO HS [facility] Last Admin: 04/30/19 22:22 Dose: 1 tab a/p ecoli ESBL UTI-day #11 ertapenem, will d/c renal failure-improving cirrhosis- still with ascites, GI f/u
[2019-05-01] MEDS: SENNOSIDES 8.6MG TABLET (FP) PO SCH (22:15)
[2019-05-02] MEDS: CALCIUM ACETATE 667 MG CAPSULE (FP) PO SCH ×3 (08:31→17:33)
[2019-05-02 09:12] LABS: HEMATOCRIT 25.8 % (32.4-45.2); HEMOGLOBIN 8.6 GM/dL (10.7-15.3); MCH 31.2 pg (25.7-33.7); MCHC 33.3 g/dl (32.0-36.0); MEAN CELL VOLUME 93.7 fl (80-96); PLATELET COUNT 139 K/MM3 (134-434); RBC 2.75 M/mm3 (3.60-5.2); WHITE BLOOD COUNT 9.2 K/mm3 (4.0-10.0)
--- NOTE | 2019-05-02 09:15 | PN ---
Progress Note, Physician Chief Complaint: Sepsis Renal Failure Liver Cirrhosis History of Present Illness: Previous notes and events reviewed awake and responsive to name increase in confusion, only alert and oriented to self NAD accessory muscle use noted with respirations - Current Medication List Current Medications: Active Medications Albuterol Sulfate (Ventolin 0.083% Nebulizer Soln -) 1 amp NEB Q6H PRN PRN Reason: SHORT OF BREATH/WHEEZING Last Admin: 04/29/19 13:12 Dose: 1 amp Amlodipine Besylate (Norvasc -) 5 mg PO DAILY [facility] Last Admin: 05/01/19 12:03 Dose: 5 mg Apixaban (Eliquis -) 2.5 mg PO BID [facility] Calcium Acetate (Phoslo -) 667 mg PO TIDCM [facility] Last Admin: 05/02/19 08:31 Dose: 667 mg Docusate Sodium (Colace -) 100 mg PO DAILY [facility] Last Admin: 05/01/19 12:03 Dose: 100 mg Ergocalciferol (Drisdol -) 50,000 unit PO Q7D@1000 [facility] Furosemide (Lasix Injection -) 40 mg IVPUSH DAILY [facility] Last Admin: 05/01/19 12:57 Dose: Not Given Hydrocortisone (Anusol 2.5% Hc Cream -) 1 applic TP DAILY [facility] Famotidine/Sodium Chloride (Pepcid 20 Mg Premixed Ivpb -) 20 mg in 50 mls @ 100 mls/hr IVPB Q48H [facility] Last Admin: 05/01/19 16:26 Dose: 100 mls/hr Lactulose (Cephulac (Oral Use)) 20 gm PO BID [facility] Last Admin: 05/01/19 22:30 Dose: 20 gm Midodrine (Proamatine -) 10 mg PO TID-MID [facility] Last Admin: 05/01/19 17:54 Dose: 10 mg Ondansetron HCl (Zofran -) 4 mg PO TID PRN PRN Reason: NAUSEA AND/OR VOMITING Polyethylene Glycol (Miralax (For Daily Use) -) 17 gm PO BID [facility] Last Admin: 05/01/19 22:14 Dose: Not Given Rifaximin (Xifaxan -) 550 mg PO BID [facility] Last Admin: 05/01/19 22:28 Dose: 550 mg Senna (Senna -) 1 tab PO HS [facility] Last Admin: 05/01/19 22:15 Dose: Not Given - Objective Vital Signs: Vital Signs Temperature 97.6 F 05/02/19 08:39 Pulse Rate 102 H 05/02/19 08:39 Respiratory Rate 18 05/02/19 08:39 Blood Pressure 128/74 05/02/19 08:39 O2 Sat by Pulse Oximetry (%) 97 05/01/19 21:00 Constitutional: Yes: No Distress, Calm Eyes: Yes: Conjunctiva Clear HENT: Yes: Atraumatic Cardiovascular: Yes: Regular Rate and Rhythm Respiratory: Yes: Regular, Accessory Muscle Use, Diminished, On Nasal O2, Tachypnea Gastrointestinal: Yes: Normal Bowel Sounds, Soft, Ascites Genitourinary: Yes: Laguerre Present Musculoskeletal: Yes: Muscle Weakness Extremities: Yes: WNL Edema: No Neurological: Yes: Alert, Oriented (to self), Confusion Psychiatric: Yes: Alert Labs: INR, PTT INR 1.52 (0.83-1.09) H 04/27/19 09:00 Problem List - Problems (1) CKD (chronic kidney disease) Assessment/Plan: -BUN/Cr 94.8/4.4, todays results pending -Renal on board -monitor renal function daily -Renal US shows both kidneys appear unremarkable without evidence of hydronephrosis or gross renal stones Code(s): N18.9 - CHRONIC KIDNEY DISEASE, UNSPECIFIED (2) Abdominal pain Assessment/Plan: -Abdominal US done and shows liver cirrhosis with splenomegaly with significant amount of free fluid/ascites in upper abdomen and lower quadrants, thickening of gallbladder -GI on board -ABdominal US~GI recommend diagnostic paracentesis to eval fluid for cell count with diff, culture, total protein, albumin, cytology -repeat Abd US shows volume of ascites increase in comparison to US 04/20/19 Code(s): R10.9 - UNSPECIFIED ABDOMINAL PAIN (3) Altered mental state Assessment/Plan: -toxic metabolic encephalopathy due to dementia vs renal failure vs CKD -aspiration precaution -trial of dysphagia ground diet and nectar thick liquid -increase in confusion noted this morning Head CT scan STAT and Ammonia level ordered Code(s): R41.82 - ALTERED MENTAL STATUS, UNSPECIFIED (4) CHF (congestive heart failure) Assessment/Plan: -daily weights -fluid restriction -strict I&Os -Furosemide -BNP 4540 Code(s): I50.9 - HEART FAILURE, UNSPECIFIED (5) 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 Assessment/Plan: -GI on board -Abdominal US shows liver cirrhosis with splenomegaly with significant amount of free fluid/ascites in upper abdomen and lower quadrants -AST 56, Alk Phos 148 -will need to have discussion with family in regards to GOC, if aggressive treatment is warranted will need transfer to liver center for mangement of underlying chronic liver disease -ABdominal US~GI recommend diagnostic paracentesis to eval fluid for cell count with diff, culture, total protein, albumin, cytology -repeat Abd US shows volume of ascites increase in comparison to US 04/20/19 -Ammonia level Code(s): B18.2 - CHRONIC VIRAL HEPATITIS C; K74.60 - UNSPECIFIED CIRRHOSIS OF LIVER (6) Hypertension Assessment/Plan: -Amlodipine Code(s): I10 - ESSENTIAL (PRIMARY) HYPERTENSION (7) Hypoxia Assessment/Plan: -Pulm on board -O2 via NC -keep SpO2 >90% -CXR shows mild congestive changes -bronchodilators -repeat CXR shows congestive and infiltrative changes Code(s): R09.02 - HYPOXEMIA (8) Urinary tract infection Assessment/Plan: -ID on board -no leukocytosis -afebrile -Ertapenem discontinued, will monitor off -UA shows 3+ leuks, 1+ bilirubin, 3+ blood -UC positive Code(s): N39.0 - URINARY TRACT INFECTION, SITE NOT SPECIFIED Qualifiers: Urinary tract infection type: site unspecified Hematuria presence: without hematuria Qualified Code(s): N39.0 - Urinary tract infection, site not specified (9) Sepsis Assessment/Plan: -ID consult -leukocytosis -afebrile -Ertapenem d/c, monitor off -UA shows 3+ leuks, 1+ bilirubin, 3+ blood -UC positive -BC neg -LA 4.9~4.1~2.4~1.7 -CXR shows congestive and infiltrative changes Code(s): A41.9 - SEPSIS, UNSPECIFIED ORGANISM (10) DVT (deep venous thrombosis) Assessment/Plan: -Eliquis Code(s): I82.409 - ACUTE EMBOLISM AND THOMBOS UNSP DEEP VN UNSP LOWER EXTREMITY (11) Hyponatremia Assessment/Plan: -resolved, now with elevated Na -Na 148 -monitor electrolytes daily -renal on board Code(s): E87.1 - HYPO-OSMOLALITY AND HYPONATREMIA (12) Hypotension Assessment/Plan: -resolved Code(s): I95.9 - HYPOTENSION, UNSPECIFIED Assessment/Plan see problem list palliative consult patient daughter will be coming today, will need to have family meeting to discuss GOC and aggressive vs conservative treatment
[2019-05-02 09:47] LABS: ALBUMIN 2.4 g/dl (3.4-5.0); BLOOD UREA NITROGEN 93.4 mg/dL (7-18); CALCIUM 8.9 mg/dL (8.5-10.1); CREATININE 4.1 mg/dL (0.55-1.3); POTASSIUM 4.2 mmol/L (3.5-5.1)
[2019-05-02] MEDS ORDERED: DEXTROSE 5%-WATER - 1,000 ML IV SCH ×2 (10:15)
[2019-05-02] MEDS: POLYETHYLENE GLYCOL 3350 119 GM BTL PO SCH ×2 (10:22→21:42)
[2019-05-02] MEDS: amLODIPine BESYLATE 5 MG TABLET (FP) PO SCH (10:22)
[2019-05-02] MEDS: LACTULOSE 20 GM/30 ML UDC (FOR ORAL USE ONLY) PO SCH ×2 (10:22→21:43)
[2019-05-02] MEDS: RIFAXIMIN 550 MG TABLET (UD) PO SCH ×2 (10:22→21:43)
[2019-05-02] MEDS: APIXABAN 2.5 MG TABLET PO SCH ×2 (10:23→21:43)
[2019-05-02] MEDS: FUROSEMIDE 40 MG/4 ML INJECTABLE VIAL IVPUSH SCH (10:23)
[2019-05-02] MEDS: MIDODRINE HCL 5 MG TABLET PO SCH ×3 (10:25→17:37)
[2019-05-02] MEDS: DOCUSATE SODIUM 100 MG CAPSULE (FP) PO SCH (10:25)
--- NOTE | 2019-05-02 11:13 | PN ---
Progress Note, [facility] - Note Progress Note: Selected Entries 05/01/19 05/01/19 05/01/19 06:44 10:00 15:00 Breakfast 100% Lunch 100% Supper Temperature 98.4 F 97.7 F 05/01/19 05/01/19 05/01/19 16:30 18:30 22:00 Breakfast Lunch Supper 100% Temperature 97.3 F L 98.6 F 05/02/19 05/02/19 06:32 08:39 Breakfast Lunch Supper Temperature 98.2 F 97.6 F Laboratory Tests 05/01/19 05/02/19 05/02/19 08:15 08:35 09:35 WBC 10.3 H 9.2 Ammonia 11.10 Asked by PT to reassess communication with suspected worsening status. Responding yes to most questions. Reduced intelligibility of speech, snorting with reduced articulatory excursion and precision, but speaking in words/ phrases. Encephalopathic? multifactorial Good appetite, overtly tolerating diet per staff. Tachypneic. MBS completed 04/29- Diet upgrade recommended.Medical status was much better when performed. CXR-progressive infiltrative congestive changes. Continue Puree/honey thick for now. HOB elevated at all times. Mouth care.
--- NOTE | 2019-05-02 13:19 | PN ---
Progress Note (short form) - Note Progress Note: PULMONARY Remains confused. Denies shortness of breath. Vital Signs Period Temp Pulse Resp BP Sys/Bolaños Pulse Ox Last 24 Hr 97.3 F-98.6 F 95-105 18-22 103-136/63-76 97 Gen: confused, mildly tachypneic Heart: RRR, +systolic murmur Lung: decreased breath sounds at the bases Abd: softly distended, nontender Ext: no edema CBC, BMP 05/02/19 08:35 05/02/19 08:35 Active Medications Albuterol Sulfate (Ventolin 0.083% Nebulizer Soln -) 1 amp NEB Q6H PRN PRN Reason: SHORT OF BREATH/WHEEZING Last Admin: 04/29/19 13:12 Dose: 1 amp Amlodipine Besylate (Norvasc -) 5 mg PO DAILY [facility] Last Admin: 05/02/19 10:22 Dose: 5 mg Apixaban (Eliquis -) 2.5 mg PO BID [facility] Last Admin: 05/02/19 10:23 Dose: 2.5 mg Calcium Acetate (Phoslo -) 667 mg PO TIDCM [facility] Last Admin: 05/02/19 08:31 Dose: 667 mg Docusate Sodium (Colace -) 100 mg PO DAILY [facility] Last Admin: 05/02/19 10:25 Dose: Not Given Ergocalciferol (Drisdol -) 50,000 unit PO Q7D@1000 [facility] Furosemide (Lasix Injection -) 40 mg IVPUSH DAILY [facility] Last Admin: 05/02/19 10:23 Dose: 40 mg Hydrocortisone (Anusol 2.5% Hc Cream -) 1 applic TP DAILY [facility] Famotidine/Sodium Chloride (Pepcid 20 Mg Premixed Ivpb -) 20 mg in 50 mls @ 100 mls/hr IVPB Q48H [facility] Last Admin: 05/01/19 16:26 Dose: 100 mls/hr Dextrose (D5w -) 1,000 mls @ 40 mls/hr IV .[id number] [facility] Stop: 05/02/19 22:14 Lactulose (Cephulac (Oral Use)) 20 gm PO BID [facility] Last Admin: 05/02/19 10:22 Dose: 20 gm Midodrine (Proamatine -) 10 mg PO TID-MID [facility] Last Admin: 05/02/19 10:25 Dose: 10 mg Ondansetron HCl (Zofran -) 4 mg PO TID PRN PRN Reason: NAUSEA AND/OR VOMITING Polyethylene Glycol (Miralax (For Daily Use) -) 17 gm PO BID [facility] Last Admin: 05/02/19 10:22 Dose: Not Given Rifaximin (Xifaxan -) 550 mg PO BID [facility] Last Admin: 05/02/19 10:22 Dose: 550 mg Senna (Senna -) 1 tab PO HS [facility] Last Admin: 05/01/19 22:15 Dose: Not Given A/P UTI Resolved Septic Shock Acute Respiratory Failure Requiring HFOT Acute Kidney Injury Lactic Acidosis Hep C Cirrhosis Ascites Thrombocytopenia/Anemia h/o DVT - antibiotics per ID - continue midodrine - lactulose, rifaximin - PO as tolerated - monitor urine output, creatinine - aspiration precautions - DVT prophylaxis
[2019-05-02] MEDS: HYDROCORTISONE 2.5% TOPICAL CREAM 30 GM TUBE TP SCH (15:24)
--- NOTE | 2019-05-02 15:58 | PN ---
Progress Note, Physician History of Present Illness: Pt seen and examined at bedside. She is awake but confused at times. She is tolerating po intake. - Current Medication List Current Medications: Active Medications Albuterol Sulfate (Ventolin 0.083% Nebulizer Soln -) 1 amp NEB Q6H PRN PRN Reason: SHORT OF BREATH/WHEEZING Last Admin: 04/29/19 13:12 Dose: 1 amp Amlodipine Besylate (Norvasc -) 5 mg PO DAILY [facility] Last Admin: 05/02/19 10:22 Dose: 5 mg Apixaban (Eliquis -) 2.5 mg PO BID [facility] Last Admin: 05/02/19 10:23 Dose: 2.5 mg Calcium Acetate (Phoslo -) 667 mg PO TIDCM [facility] Last Admin: 05/02/19 14:11 Dose: Not Given Docusate Sodium (Colace -) 100 mg PO DAILY [facility] Last Admin: 05/02/19 10:25 Dose: Not Given Ergocalciferol (Drisdol -) 50,000 unit PO Q7D@1000 [facility] Furosemide (Lasix Injection -) 40 mg IVPUSH DAILY [facility] Last Admin: 05/02/19 10:23 Dose: 40 mg Hydrocortisone (Anusol 2.5% Hc Cream -) 1 applic TP DAILY [facility] Last Admin: 05/02/19 15:24 Dose: 1 applic Famotidine/Sodium Chloride (Pepcid 20 Mg Premixed Ivpb -) 20 mg in 50 mls @ 100 mls/hr IVPB Q48H [facility] Last Admin: 05/01/19 16:26 Dose: 100 mls/hr Dextrose (D5w -) 1,000 mls @ 40 mls/hr IV ASDIR [facility] Stop: 05/02/19 22:14 Last Admin: 05/02/19 14:30 Dose: Not Given Lactulose (Cephulac (Oral Use)) 20 gm PO BID [facility] Last Admin: 05/02/19 10:22 Dose: 20 gm Midodrine (Proamatine -) 10 mg PO TID-MID [facility] Last Admin: 05/02/19 15:24 Dose: 10 mg Ondansetron HCl (Zofran -) 4 mg PO TID PRN PRN Reason: NAUSEA AND/OR VOMITING Polyethylene Glycol (Miralax (For Daily Use) -) 17 gm PO BID [facility] Last Admin: 05/02/19 10:22 Dose: Not Given Rifaximin (Xifaxan -) 550 mg PO BID [facility] Last Admin: 05/02/19 10:22 Dose: 550 mg Senna (Senna -) 1 tab PO HS [facility] Last Admin: 05/01/19 22:15 Dose: Not Given - Objective Vital Signs: Vital Signs Temperature 98.1 F 05/02/19 14:00 Pulse Rate 84 05/02/19 14:00 Respiratory Rate 18 05/02/19 14:00 Blood Pressure 113/68 05/02/19 14:00 O2 Sat by Pulse Oximetry (%) 97 05/01/19 21:00 Constitutional: Yes: Calm Eyes: Yes: Conjunctiva Clear HENT: Yes: Atraumatic Cardiovascular: Yes: S1, S2 Respiratory: Yes: On Nasal O2 Gastrointestinal: Yes: Ascites Genitourinary: Yes: Carlotta Present Musculoskeletal: Yes: Muscle Weakness Edema: Yes Integumentary: Yes: Venous Stasis Changes Neurological: Yes: Confusion Labs: CBC, BMP 05/02/19 08:35 05/02/19 08:35 INR, PTT INR 1.52 (0.83-1.09) H 04/27/19 09:00 - ....Imaging Chest X-ray: Report Reviewed Assessment/Plan Current Medications Generic Name Dose Route Start Last Admin Trade Name Freq PRN Reason Stop Dose Admin Albuterol Sulfate 1 amp 04/27/19 12:33 04/29/19 13:12 Ventolin 0.083% Nebulizer Soln - NEB 1 amp Q6H PRN Administration SHORT OF BREATH/WHEEZING Amlodipine Besylate 5 mg 04/27/19 10:00 05/02/19 10:22 Norvasc - PO 5 mg DAILY [facility] Administration Apixaban 2.5 mg 05/02/19 10:00 05/02/19 10:23 Eliquis - PO 2.5 mg BID [facility] Administration Calcium Acetate 667 mg 04/28/19 12:00 05/02/19 14:11 Phoslo - PO Not Given TIDCM [facility] Docusate Sodium 100 mg 04/28/19 10:00 05/02/19 10:25 Colace - PO Not Given DAILY [facility] Ergocalciferol 50,000 unit 05/04/19 10:00 Drisdol - PO Q7D@1000 [facility] Furosemide 40 mg 05/01/19 10:00 05/02/19 10:23 Lasix Injection - IVPUSH 40 mg DAILY [facility] Administration Hydrocortisone 1 applic 05/02/19 10:00 05/02/19 15:24 Anusol 2.5% Hc Cream - TP 1 applic DAILY [facility] Administration Famotidine/Sodium Chloride 20 mg in 50 mls @ 100 mls/hr 04/27/19 14:45 16:26 Pepcid 20 Mg Premixed Ivpb - IVPB 100 mls/hr Q48H [facility] Administration Dextrose 1,000 mls @ 40 mls/hr 05/02/19 10:15 05/02/19 14:30 D5w - IV 05/02/19 22:14 Not Given ASDIR [facility] Lactulose 20 gm 04/27/19 22:00 05/02/19 10:22 Cephulac (Oral Use) PO 20 gm BID [facility] Administration Midodrine 10 mg 04/27/19 14:00 05/02/19 15:24 Proamatine - PO 10 mg TID-MID [facility] Administration Ondansetron HCl 4 mg 04/27/19 12:33 Zofran - PO TID PRN NAUSEA AND/OR VOMITING Polyethylene Glycol 17 gm 04/27/19 22:00 05/02/19 10:22 Miralax (For Daily Use) - PO Not Given BID [facility] Rifaximin 550 mg 04/27/19 22:00 05/02/19 10:22 Xifaxan - PO 550 mg BID [facility] Administration Senna 1 tab 04/27/19 22:00 05/01/19 22:15 Senna - PO Not Given HS [facility] Impression 1. DAVID 2. CKD 3. hep C cirrhosis 4. UTI 5. sepsis 6. ascites 7. hypervolemic hyponatremia 8. coagulopathy 9. hypernatremia PLAN - cont lasix - encourage free water intake as she is hypernatremic - renal function is improving - rheum input appreciated - follow cryo - cont midodrine - will need to discuss GOC, daughter Shante is unable to come in
[2019-05-02] MEDS: SENNOSIDES 8.6MG TABLET (FP) PO SCH (21:42)
[2019-05-03 07:50] LABS: HEMATOCRIT 23.7 % (32.4-45.2); HEMOGLOBIN 7.9 GM/dL (10.7-15.3); MCH 31.6 pg (25.7-33.7); MCHC 33.3 g/dl (32.0-36.0); MEAN CELL VOLUME 94.8 fl (80-96); MEAN PLT VOLUME 7.9 fl (7.5-11.1); PLATELET COUNT 132 K/MM3 (134-434); RDW 19.5 % (11.6-15.6); WHITE BLOOD COUNT 6.7 K/mm3 (4.0-10.0)
[2019-05-03 08:23] LABS: ALBUMIN 2.1 g/dl (3.4-5.0); BILIRUBIN,TOTAL 1.9 mg/dL (0.2-1); BLOOD UREA NITROGEN 89.6 mg/dL (7-18); CALCIUM 8.8 mg/dL (8.5-10.1); CREATININE 3.9 mg/dL (0.55-1.3); POTASSIUM 4.2 mmol/L (3.5-5.1); TOT PROT 5.5 g/dl (6.4-8.2)
--- NOTE | 2019-05-03 09:05 | PN ---
Progress Note, Physician Chief Complaint: Sepsis Renal Failure Liver Cirrhosis History of Present Illness: Previous notes and events reviewed awake and responsive to name, knows location NAD no acute events overnight attempt to contact NOK in regards to GOC and aggressive vs conservative treatment, no response and message left Hg 8.6~7.9 stool OB ordered - Current Medication List Current Medications: Active Medications Albuterol Sulfate (Ventolin 0.083% Nebulizer Soln -) 1 amp NEB Q6H PRN PRN Reason: SHORT OF BREATH/WHEEZING Last Admin: 04/29/19 13:12 Dose: 1 amp Amlodipine Besylate (Norvasc -) 5 mg PO DAILY [facility] Last Admin: 05/02/19 10:22 Dose: 5 mg Apixaban (Eliquis -) 2.5 mg PO BID [facility] Last Admin: 05/02/19 21:43 Dose: 2.5 mg Calcium Acetate (Phoslo -) 667 mg PO TIDCM [facility] Last Admin: 05/02/19 17:33 Dose: 667 mg Docusate Sodium (Colace -) 100 mg PO DAILY [facility] Last Admin: 05/02/19 10:25 Dose: Not Given Ergocalciferol (Drisdol -) 50,000 unit PO Q7D@1000 [facility] Furosemide (Lasix Injection -) 40 mg IVPUSH DAILY [facility] Last Admin: 05/02/19 10:23 Dose: 40 mg Hydrocortisone (Anusol 2.5% Hc Cream -) 1 applic TP DAILY [facility] Last Admin: 05/02/19 15:24 Dose: 1 applic Famotidine/Sodium Chloride (Pepcid 20 Mg Premixed Ivpb -) 20 mg in 50 mls @ 100 mls/hr IVPB Q48H [facility] Last Admin: 05/01/19 16:26 Dose: 100 mls/hr Lactulose (Cephulac (Oral Use)) 20 gm PO BID [facility] Last Admin: 05/02/19 21:43 Dose: 20 gm Midodrine (Proamatine -) 10 mg PO TID-MID [facility] Last Admin: 05/02/19 17:37 Dose: 10 mg Ondansetron HCl (Zofran -) 4 mg PO TID PRN PRN Reason: NAUSEA AND/OR VOMITING Polyethylene Glycol (Miralax (For Daily Use) -) 17 gm PO BID [facility] Last Admin: 05/02/19 21:42 Dose: Not Given Rifaximin (Xifaxan -) 550 mg PO BID [facility] Last Admin: 05/02/19 21:43 Dose: 550 mg Senna (Senna -) 1 tab PO HS [facility] Last Admin: 05/02/19 21:42 Dose: Not Given - Objective Vital Signs: Vital Signs Temperature 99.1 F 05/03/19 06:38 Pulse Rate 86 05/03/19 06:38 Respiratory Rate 20 05/03/19 06:38 Blood Pressure 108/56 L 05/03/19 06:38 O2 Sat by Pulse Oximetry (%) 96 05/02/19 21:00 Constitutional: Yes: No Distress, Calm Eyes: Yes: Conjunctiva Clear HENT: Yes: Atraumatic Cardiovascular: Yes: Regular Rate and Rhythm Respiratory: Yes: Regular, Diminished, On Nasal O2 Gastrointestinal: Yes: Normal Bowel Sounds, Soft, Ascites Genitourinary: Yes: Laguerre Present Musculoskeletal: Yes: Muscle Weakness Extremities: Yes: WNL Edema: No Integumentary: Yes: Bruising Neurological: Yes: Alert, Confusion Psychiatric: Yes: Alert Labs: CBC, BMP 05/03/19 07:05 05/03/19 07:05 INR, PTT INR 1.52 (0.83-1.09) H 04/27/19 09:00 - ....Imaging Chest X-ray: Report Reviewed Cat Scan: Report Reviewed Problem List - Problems (1) CKD (chronic kidney disease) Assessment/Plan: -BUN/Cr 89.6/3.9 -Renal on board -monitor renal function daily -Renal US shows both kidneys appear unremarkable without evidence of hydronephrosis or gross renal stones Code(s): N18.9 - CHRONIC KIDNEY DISEASE, UNSPECIFIED (2) Abdominal pain Assessment/Plan: -Abdominal US done and shows liver cirrhosis with splenomegaly with significant amount of free fluid/ascites in upper abdomen and lower quadrants, thickening of gallbladder -GI on board -ABdominal US~GI recommend diagnostic paracentesis to eval fluid for cell count with diff, culture, total protein, albumin, cytology -repeat Abd US shows volume of ascites increase in comparison to US 04/20/19 Code(s): R10.9 - UNSPECIFIED ABDOMINAL PAIN (3) Altered mental state Assessment/Plan: -toxic metabolic encephalopathy due to dementia vs renal failure vs CKD -aspiration precaution -trial of dysphagia ground diet and nectar thick liquid -Ammonia 11.10 -Head CT scan shows generalized volume loss, moderate to marked ventricular dilatation mainly in the lateral and third ventricles including the temporal horns without interval change, although findings may be due to central atrophy normal pressure hydrocephalus could not be excluded Code(s): R41.82 - ALTERED MENTAL STATUS, UNSPECIFIED (4) CHF (congestive heart failure) Assessment/Plan: -daily weights -fluid restriction -strict I&Os -Furosemide -BNP 4540 Code(s): I50.9 - HEART FAILURE, UNSPECIFIED (5) 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 Assessment/Plan: -GI on board -Abdominal US shows liver cirrhosis with splenomegaly with significant amount of free fluid/ascites in upper abdomen and lower quadrants -AST 54, Alk Phos 135 -will need to have discussion with family in regards to GOC, if aggressive treatment is warranted will need transfer to liver center for mangement of underlying chronic liver disease -ABdominal US~GI recommend diagnostic paracentesis to eval fluid for cell count with diff, culture, total protein, albumin, cytology -repeat Abd US shows volume of ascites increase in comparison to US 04/20/19 -Ammonia level 11.10 Code(s): B18.2 - CHRONIC VIRAL HEPATITIS C; K74.60 - UNSPECIFIED CIRRHOSIS OF LIVER (6) Hypertension Assessment/Plan: -Amlodipine Code(s): I10 - ESSENTIAL (PRIMARY) HYPERTENSION (7) Hypoxia Assessment/Plan: -Pulm on board -O2 via NC -keep SpO2 >90% -CXR shows mild congestive changes -bronchodilators -repeat CXR shows congestive and infiltrative changes Code(s): R09.02 - HYPOXEMIA (8) Urinary tract infection Assessment/Plan: -ID on board -no leukocytosis -afebrile -Ertapenem discontinued, will monitor off -UA shows 3+ leuks, 1+ bilirubin, 3+ blood -UC positive Code(s): N39.0 - URINARY TRACT INFECTION, SITE NOT SPECIFIED Qualifiers: Urinary tract infection type: site unspecified Hematuria presence: without hematuria Qualified Code(s): N39.0 - Urinary tract infection, site not specified (9) Sepsis Assessment/Plan: -ID consult -no leukocytosis -afebrile -Ertapenem d/c, monitor off -UA shows 3+ leuks, 1+ bilirubin, 3+ blood -UC positive -BC neg -LA 4.9~4.1~2.4~1.7 -CXR shows congestive and infiltrative changes Code(s): A41.9 - SEPSIS, UNSPECIFIED ORGANISM (10) DVT (deep venous thrombosis) Assessment/Plan: -Eliquis Code(s): I82.409 - ACUTE EMBOLISM AND THOMBOS UNSP DEEP VN UNSP LOWER EXTREMITY (11) Hyponatremia Assessment/Plan: -resolved, now with elevated Na -Na 152 -monitor electrolytes daily -renal on board Code(s): E87.1 - HYPO-OSMOLALITY AND HYPONATREMIA (12) Hypotension Assessment/Plan: -resolved Code(s): I95.9 - HYPOTENSION, UNSPECIFIED Assessment/Plan see problem list palliative consult patient daughter will be coming today, will need to have family meeting to discuss GOC and aggressive vs conservative treatment
[2019-05-03] MEDS: CALCIUM ACETATE 667 MG CAPSULE (FP) PO SCH ×3 (11:13→17:24)
[2019-05-03] MEDS: DOCUSATE SODIUM 100 MG CAPSULE (FP) PO SCH (11:14)
[2019-05-03] MEDS: APIXABAN 2.5 MG TABLET PO SCH ×2 (11:14→21:53)
[2019-05-03] MEDS: FUROSEMIDE 40 MG/4 ML INJECTABLE VIAL IVPUSH SCH (11:14)
[2019-05-03] MEDS: LACTULOSE 20 GM/30 ML UDC (FOR ORAL USE ONLY) PO SCH ×2 (11:14→21:53)
[2019-05-03] MEDS: amLODIPine BESYLATE 5 MG TABLET (FP) PO SCH (11:15)
[2019-05-03] MEDS: RIFAXIMIN 550 MG TABLET (UD) PO SCH ×2 (11:15→21:53)
[2019-05-03] MEDS: POLYETHYLENE GLYCOL 3350 119 GM BTL PO SCH ×2 (11:15→21:49)
[2019-05-03] MEDS: MIDODRINE HCL 5 MG TABLET PO SCH ×3 (11:15→17:24)
[2019-05-03] MEDS: HYDROCORTISONE 2.5% TOPICAL CREAM 30 GM TUBE TP SCH (11:16)
--- NOTE | 2019-05-03 13:39 | PN ---
Progress Note, UPPER DOUBLER - Note Progress Note: Selected Entries 05/02/19 05/02/19 05/02/19 06:32 08:39 10:00 Breakfast 100% Supper Temperature 98.2 F 97.6 F 05/02/19 05/02/19 05/02/19 14:00 16:25 22:00 Breakfast Supper Temperature 98.1 F 98.8 F 98.6 F 05/02/19 05/03/19 05/03/19 22:31 06:38 10:00 Breakfast 75% Supper 75% Temperature 99.1 F Laboratory Tests 05/03/19 07:[address] head noted. Pt looks much better, verbal, intelligible, interactive, back to her baseline.
--- NOTE | 2019-05-03 13:47 | PN ---
Progress Note, Physician History of Present Illness: pulmonary awake,confused, -resp distress - Current Medication List Current Medications: Active Medications Albuterol Sulfate (Ventolin 0.083% Nebulizer Soln -) 1 amp NEB Q6H PRN PRN Reason: SHORT OF BREATH/WHEEZING Last Admin: 04/29/19 13:12 Dose: 1 amp Amlodipine Besylate (Norvasc -) 5 mg PO DAILY [facility] Last Admin: 05/03/19 11:15 Dose: 5 mg Apixaban (Eliquis -) 2.5 mg PO BID [facility] Last Admin: 05/03/19 11:14 Dose: 2.5 mg Calcium Acetate (Phoslo -) 667 mg PO TIDCM [facility] Last Admin: 05/03/19 11:14 Dose: 667 mg Docusate Sodium (Colace -) 100 mg PO DAILY [facility] Last Admin: 05/03/19 11:14 Dose: 100 mg Ergocalciferol (Drisdol -) 50,000 unit PO Q7D@1000 [facility] Furosemide (Lasix Injection -) 40 mg IVPUSH DAILY [facility] Last Admin: 05/03/19 11:14 Dose: 40 mg Hydrocortisone (Anusol 2.5% Hc Cream -) 1 applic TP DAILY [facility] Last Admin: 05/03/19 11:16 Dose: 1 applic Famotidine/Sodium Chloride (Pepcid 20 Mg Premixed Ivpb -) 20 mg in 50 mls @ 100 mls/hr IVPB Q48H [facility] Last Admin: 05/01/19 16:26 Dose: 100 mls/hr Lactulose (Cephulac (Oral Use)) 20 gm PO BID [facility] Last Admin: 05/03/19 11:14 Dose: 20 gm Midodrine (Proamatine -) 10 mg PO TID-MID [facility] Last Admin: 05/03/19 11:15 Dose: 10 mg Ondansetron HCl (Zofran -) 4 mg PO TID PRN PRN Reason: NAUSEA AND/OR VOMITING Polyethylene Glycol (Miralax (For Daily Use) -) 17 gm PO BID [facility] Last Admin: 05/03/19 11:15 Dose: Not Given Rifaximin (Xifaxan -) 550 mg PO BID [facility] Last Admin: 05/03/19 11:15 Dose: 550 mg Senna (Senna -) 1 tab PO HS [facility] Last Admin: 05/02/19 21:42 Dose: Not Given - Objective Vital Signs: Vital Signs Temperature 99.1 F 05/03/19 06:38 Pulse Rate 86 05/03/19 06:38 Respiratory Rate 20 05/03/19 06:38 Blood Pressure 108/56 L 05/03/19 06:38 O2 Sat by Pulse Oximetry (%) 96 05/03/19 09:00 Constitutional: Yes: Well Nourished, Calm Eyes: Yes: WNL HENT: Yes: WNL Neck: Yes: WNL Cardiovascular: Yes: Regular Rate and Rhythm, S1, S2 Respiratory: Yes: Rhonchi (few scattered rhonchi) Gastrointestinal: Yes: Normal Bowel Sounds, Soft, Ascites Extremities: Yes: WNL Edema: Yes Labs: CBC, BMP 05/03/19 07:05 05/03/19 07:05 INR, PTT INR 1.52 (0.83-1.09) H 04/27/19 09:00 Problem List - Problems (1) Acute renal failure Code(s): N17.9 - ACUTE KIDNEY FAILURE, UNSPECIFIED (2) CKD (chronic kidney disease) Code(s): N18.9 - CHRONIC KIDNEY DISEASE, UNSPECIFIED (3) Coagulopathy Code(s): D68.9 - COAGULATION DEFECT, UNSPECIFIED (4) DVT (deep venous thrombosis) Code(s): I82.409 - ACUTE EMBOLISM AND THOMBOS UNSP DEEP VN UNSP LOWER EXTREMITY (5) Liver cirrhosis Code(s): K74.60 - UNSPECIFIED CIRRHOSIS OF LIVER (6) Respiratory distress Code(s): R06.03 - ACUTE RESPIRATORY DISTRESS (7) Hepatic encephalopathy Code(s): K72.90 - HEPATIC FAILURE, UNSPECIFIED WITHOUT COMA (8) Hypomagnesemia Code(s): E83.42 - HYPOMAGNESEMIA (9) Lactic acidosis Code(s): E87.2 - ACIDOSIS Assessment/Plan A/P UTI Resolved Septic Shock Acute Respiratory Failure Requiring HFOT resolved Acute Kidney Injury Lactic Acidosis Hep C Cirrhosis Ascites Thrombocytopenia/Anemia h/o DVT - continue midodrine - lactulose, rifaximin - PO as tolerated - monitor urine output, creatinine - aspiration precautions - DVT prophylaxis DR LOZA
[2019-05-03] MEDS: FAMOTIDINE 20 MG/50 ML IVPB 20 MG/50 ML MG IVPB SCH (14:23)
--- NOTE | 2019-05-03 14:56 | CONSULT ---
Consult - text type - Consultation Consultation Note: NEUROLOGY CONSULT GREATLY APPRECIATED: Events reviewed and discussed with Dr. Dodd and staff at bedside. Discussed wit WINTER Hinson. Pt. examined with /partner at the bedside. Last seen in consultation 11/30/17 here. Also discussed with her daughter in [place] on phone. More recently has had progressive gait dysfunction worsened by "[place]otic" in [place]. This 68 yo woman with pmhx: HTN, Hep C cirrhosis, ascites, dementia, chronic UTI. Admitted after fall 3 weeks ago while attempting to ambulate to bathroom. Also with increasing SOB and edema. Required ICU stay after found hypoglycemic, hypoxic, requiring pressors. Now on Midodrine 10 mg TID. Also +ESBL UTI requiring IV antibiotics. Now on 8W. Seen today in evaluation of dementia. Head CT (reviewed): Mild-moderate diffuse cerebral atrophy with ex vacuo ventricular dilation. Calcified intracranial vessels. WBC= 20.4-> 6.7K; H/H 7.9/23.7 - s/p transfusion; TSH= 2.13; B12= 1874; ammonia 11.10 mg%; BUN/CR= 89.6/3.9; Na= 150 mg% ; UA WBC 2456->1 BP 108/56. MARGO: III/V STERLING. No bruit. Neck supple. Abdomen obese, ascitic. On O2 via [place] Lag[place]re. Wearing mits. Scabs to R knee. Scattered purpura. NEURO: Awake, alert, speech sparse. Knows her name. States "18" for age. Follows some commands. + glabella, snout, suck, grasp CNII-CNXII: Full blink to threat. No facial. Tolerating thickened liquids. Motor: + Myoclonus/asterixis R> L. +Jaw tremor. Rigid tone legs > arms. Mild cogwheeling (R>L). Reflexes brisk throughout with clonus. Plantars silent. Sensation: Feels pinch in all fours. Impression: Moderately severe B/L cerebral dysfunction (OMS, chronic) consistent with Alzheimer's disease Myoclonus/Asterixis suggestive of underlying Toxic Metabolic Encephalopathy (urosepis/ hepatic) Some extrapyramidal features are also present (Parkinsonism) Suggest: Gentle hydration and encourage PO intake. Have pt seated upright and assist with feeds. Orthostatic BP's. Mobilize the Patient OO Bed to chair. Push PO fluids. 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
--- NOTE | 2019-05-03 17:32 | PN ---
Progress Note, Physician History of Present Illness: Pt seen and examined at bedside. She is confused. - Current Medication List Current Medications: Active Medications Albuterol Sulfate (Ventolin 0.083% Nebulizer Soln -) 1 amp NEB Q6H PRN PRN Reason: SHORT OF BREATH/WHEEZING Last Admin: 04/29/19 13:12 Dose: 1 amp Amlodipine Besylate (Norvasc -) 5 mg PO DAILY [facility] Last Admin: 05/03/19 11:15 Dose: 5 mg Apixaban (Eliquis -) 2.5 mg PO BID [facility] Last Admin: 05/03/19 11:14 Dose: 2.5 mg Calcium Acetate (Phoslo -) 667 mg PO TIDCM [facility] Last Admin: 05/03/19 17:24 Dose: 667 mg Docusate Sodium (Colace -) 100 mg PO DAILY [facility] Last Admin: 05/03/19 11:14 Dose: 100 mg Ergocalciferol (Drisdol -) 50,000 unit PO Q7D@1000 [facility] Furosemide (Lasix Injection -) 40 mg IVPUSH DAILY [facility] Last Admin: 05/03/19 11:14 Dose: 40 mg Hydrocortisone (Anusol 2.5% Hc Cream -) 1 applic TP DAILY [facility] Last Admin: 05/03/19 11:16 Dose: 1 applic Famotidine/Sodium Chloride (Pepcid 20 Mg Premixed Ivpb -) 20 mg in 50 mls @ 100 mls/hr IVPB Q48H [facility] Last Admin: 05/03/19 14:23 Dose: 100 mls/hr Lactulose (Cephulac (Oral Use)) 20 gm PO BID [facility] Last Admin: 05/03/19 11:14 Dose: 20 gm Midodrine (Proamatine -) 10 mg PO TID-MID [facility] Last Admin: 05/03/19 17:24 Dose: 10 mg Ondansetron HCl (Zofran -) 4 mg PO TID PRN PRN Reason: NAUSEA AND/OR VOMITING Polyethylene Glycol (Miralax (For Daily Use) -) 17 gm PO BID [facility] Last Admin: 05/03/19 11:15 Dose: Not Given Rifaximin (Xifaxan -) 550 mg PO BID [facility] Last Admin: 05/03/19 11:15 Dose: 550 mg Senna (Senna -) 1 tab PO HS [facility] Last Admin: 05/02/19 21:42 Dose: Not Given - Objective Vital Signs: Vital Signs Temperature 97.4 F L 05/03/19 17:26 Pulse Rate 93 H 05/03/19 17:26 Respiratory Rate 22 H 05/03/19 17:26 Blood Pressure 119/56 L 05/03/19 17:26 O2 Sat by Pulse Oximetry (%) 96 05/03/19 09:00 Constitutional: Yes: Calm Eyes: Yes: Conjunctiva Clear HENT: Yes: Atraumatic Cardiovascular: Yes: S1, S2 Respiratory: Yes: On Nasal O2 Gastrointestinal: Yes: Soft, Ascites Genitourinary: Yes: Laguerre Present Edema: No Integumentary: Yes: WNL Neurological: Yes: Confusion Labs: CBC, BMP 05/03/19 07:05 05/03/19 07:05 INR, PTT INR 1.52 (0.83-1.09) H 04/27/19 09:00 Assessment/Plan Current Medications Generic Name Dose Route Start Last Admin Trade Name Freq PRN Reason Stop Dose Admin Albuterol Sulfate 1 amp 04/27/19 12:33 04/29/19 13:12 Ventolin 0.083% Nebulizer Soln - NEB 1 amp Q6H PRN Administration SHORT OF BREATH/WHEEZING Amlodipine Besylate 5 mg 04/27/19 10:00 05/03/19 11:15 Norvasc - PO 5 mg DAILY [facility] Administration Apixaban 2.5 mg 05/02/19 10:00 05/03/19 11:14 Eliquis - PO 2.5 mg BID [facility] Administration Calcium Acetate 667 mg 04/28/19 12:00 05/03/19 17:24 Phoslo - PO 667 mg TIDCM [facility] Administration Docusate Sodium 100 mg 04/28/19 10:00 05/03/19 11:14 Colace - PO 100 mg DAILY [facility] Administration Ergocalciferol 50,000 unit 05/04/19 10:00 Drisdol - PO Q7D@1000 [facility] Furosemide 40 mg 05/01/19 10:00 05/03/19 11:14 Lasix Injection - IVPUSH 40 mg DAILY [facility] Administration Hydrocortisone 1 applic 05/02/19 10:00 05/03/19 11:16 Anusol 2.5% Hc Cream - TP 1 applic DAILY [facility] Administration Famotidine/Sodium Chloride 20 mg in 50 mls @ 100 mls/hr 04/27/19 14:45 14:23 Pepcid 20 Mg Premixed Ivpb - IVPB 100 mls/hr Q48H [facility] Administration Lactulose 20 gm 04/27/19 22:00 05/03/19 11:14 Cephulac (Oral Use) PO 20 gm BID [facility] Administration Midodrine 10 mg 04/27/19 14:00 05/03/19 17:24 Proamatine - PO 10 mg TID-MID [facility] Administration Ondansetron HCl 4 mg 04/27/19 12:33 Zofran - PO TID PRN NAUSEA AND/OR VOMITING Polyethylene Glycol 17 gm 04/27/19 22:00 05/03/19 11:15 Miralax (For Daily Use) - PO Not Given BID [facility] Rifaximin 550 mg 04/27/19 22:00 05/03/19 11:15 Xifaxan - PO 550 mg BID [facility] Administration Senna 1 tab 04/27/19 22:00 05/02/19 21:42 Senna - PO Not Given HS [facility] Laboratory Tests 04/22/19 05:55 Serum Cryoglobulins Pending Impression 1. DAVID 2. CKD 3. hep C cirrhosis 4. UTI 5. sepsis 6. ascites 7. hypervolemic hyponatremia 8. coagulopathy 9. hypernatremia PLAN - encourage free water intake - renal function is improving - cont lasix - follow cryo levels - cont midodrine
--- NOTE | 2019-05-03 17:43 | PN.GI ---
GI Progress Note Subjective: No acute events Significant other bedisde Ms. Contreras denies abdominal pain No overt bleeding reported - Objective Vital Signs: Vital Signs Temperature 97.4 F L 05/03/19 17:26 Pulse Rate 93 H 05/03/19 17:26 Respiratory Rate 22 H 05/03/19 17:26 Blood Pressure 119/56 L 05/03/19 17:26 O2 Sat by Pulse Oximetry (%) 96 05/03/19 09:00 Constitutional: Calm Eyes: No: Sclera Icterus Cardiovascular: Yes: Regular Rate and Rhythm, Murmur Respiratory: Yes: Diminished (at bases bilaterally) Gastrointestinal Inspection: Yes: Distention (softly protuberant) ...Auscultate: Yes: Normoactive Bowel Sounds ...Palpate: Yes: Soft. No: Hepatomegaly, Splenomegaly, Tenderness ...Rectal Exam: Yes: Other (Not performed. Patient was turned and she had formed light brown stool per rectum and in diaper.) Neurological: Yes: Alert, Asterixis (Unable to assess as she is wearing mits) Labs: CBC, BMP 05/03/19 07:05 05/03/19 07:05 INR, PTT INR 1.52 (0.83-1.09) H 04/27/19 09:00 Problem List - Problems (1) Liver cirrhosis Assessment/Plan: Per my discussion with JUANCARLOS Menjivar, Ms. Contreras's daughter wants aggressive care for her mother and is agreeable for paracentesis Will need eliquis held prior to paracentessis and coagulopathy corrected within paramenters of IR. Once optimized, could consider referral for further evaluation at a liver center or transfer if no continued clinical improvement Monitor H/H. No overt rectal bleeding / melena reported. Mental status improved. Continue Lactulose 20g BID Renal following regarding renal insufficiency Code(s): K74.60 - UNSPECIFIED CIRRHOSIS OF LIVER Qualifiers: Ascites presence: with ascites
[2019-05-03] MEDS: SENNOSIDES 8.6MG TABLET (FP) PO SCH (21:53)
--- NOTE | 2019-05-04 07:31 | PN ---
Progress Note, Physician Chief Complaint: UTI Pneumonia Sepsis Septic shock History of Present Illness: NAD alert, pleasantly confused Pt's daughter in agreement of doing paracentesis Hold barrera for now IR consult - Current Medication List Current Medications: Active Medications Albuterol Sulfate (Ventolin 0.083% Nebulizer Soln -) 1 amp NEB Q6H PRN PRN Reason: SHORT OF BREATH/WHEEZING Last Admin: 04/29/19 13:12 Dose: 1 amp Amlodipine Besylate (Norvasc -) 5 mg PO DAILY [facility] Last Admin: 05/03/19 11:15 Dose: 5 mg Apixaban (Eliquis -) 2.5 mg PO BID [facility] Last Admin: 05/03/19 21:53 Dose: 2.5 mg Calcium Acetate (Phoslo -) 667 mg PO TIDCM [facility] Last Admin: 05/03/19 17:24 Dose: 667 mg Docusate Sodium (Colace -) 100 mg PO DAILY [facility] Last Admin: 05/03/19 11:14 Dose: 100 mg Ergocalciferol (Drisdol -) 50,000 unit PO Q7D@1000 [facility] Furosemide (Lasix Injection -) 40 mg IVPUSH DAILY [facility] Last Admin: 05/03/19 11:14 Dose: 40 mg Hydrocortisone (Anusol 2.5% Hc Cream -) 1 applic TP DAILY [facility] Last Admin: 05/03/19 11:16 Dose: 1 applic Famotidine/Sodium Chloride (Pepcid 20 Mg Premixed Ivpb -) 20 mg in 50 mls @ 100 mls/hr IVPB Q48H [facility] Last Admin: 05/03/19 14:23 Dose: 100 mls/hr Lactulose (Cephulac (Oral Use)) 20 gm PO BID [facility] Last Admin: 05/03/19 21:53 Dose: 20 gm Midodrine (Proamatine -) 10 mg PO TID-MID [facility] Last Admin: 05/03/19 17:24 Dose: 10 mg Ondansetron HCl (Zofran -) 4 mg PO TID PRN PRN Reason: NAUSEA AND/OR VOMITING Polyethylene Glycol (Miralax (For Daily Use) -) 17 gm PO BID [facility] Last Admin: 05/03/19 21:49 Dose: Not Given Rifaximin (Xifaxan -) 550 mg PO BID [facility] Last Admin: 05/03/19 21:53 Dose: 550 mg Senna (Senna -) 1 tab PO HS [facility] Last Admin: 05/03/19 21:53 Dose: 1 tab - Objective Vital Signs: Vital Signs Temperature 98.1 F 05/04/19 06:00 Pulse Rate 90 05/04/19 06:00 Respiratory Rate 20 05/04/19 06:00 Blood Pressure 124/68 05/04/19 06:00 O2 Sat by Pulse Oximetry (%) 96 05/03/19 21:00 Constitutional: Yes: Well Nourished, No Distress, Calm Cardiovascular: Yes: Regular Rate and Rhythm Respiratory: Yes: Regular Gastrointestinal: Yes: WNL, Normal Bowel Sounds, Soft Genitourinary: Yes: [place] Present Musculoskeletal: Yes: Muscle Weakness Extremities: Yes: WNL Edema: No Peripheral Pulses WNL: Yes Neurological: Yes: Alert, Pre-Existing Deficit Psychiatric: Yes: Alert Labs: CBC, BMP 05/03/19 07:05 05/03/19 07:05 INR, PTT INR 1.52 (0.83-1.09) H 04/27/19 09:00 Problem List - Problems (1) Hypotension Assessment/Plan: -2/2 to Urosepsis -Cardiology+ ID+ Nephrology on board -maintaining BP well -started on amlodipine+ midodrine Problems reviewed: Yes Code(s): I95.9 - HYPOTENSION, UNSPECIFIED (2) Acute renal failure Assessment/Plan: -2/2 to UTI -Nephrology on board -U/S renal shows no hydronephrosis and no obstruction -Monitor Cr Problems reviewed: Yes Code(s): N17.9 - ACUTE KIDNEY FAILURE, UNSPECIFIED (3) Coagulopathy Assessment/Plan: -2/2 to liver cirrhosis -Vit K + FFP as needed Code(s): D68.9 - COAGULATION DEFECT, UNSPECIFIED (4) Hyponatremia Assessment/Plan: -improving -Nephrology on board -monitor trend Problems reviewed: Yes Code(s): E87.1 - HYPO-OSMOLALITY AND HYPONATREMIA (5) Liver cirrhosis Problems reviewed: Yes Code(s): K74.60 - UNSPECIFIED CIRRHOSIS OF LIVER Qualifiers: Ascites presence: with ascites (6) Sepsis Assessment/Plan: -2/2 UTI -IV abx completed -ID consult -afebrile -leukocytosis improved -Mental status improved -Cultures: Microbiology 04/20/19 13:28 Blood - Peripheral Venous Blood Culture - Preliminary NO GROWTH OBTAINED AFTER 96 HOURS, INCUBATION TO CONTINUE FOR 1 DAYS. 04/20/19 13:28 Blood - Peripheral Venous Blood Culture - Preliminary NO GROWTH OBTAINED AFTER 96 HOURS, INCUBATION TO CONTINUE FOR 1 DAYS. 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 Coli Esbl Biology Internship Problems reviewed: Yes Code(s): A41.9 - SEPSIS, UNSPECIFIED ORGANISM (7) Urinary tract infection Assessment/Plan: -2/2 UTI -IV abx completed -ID consult -afebrile -leukocytosis improved -Mental status improved -Cultures: Microbiology 04/20/19 13:28 Blood - Peripheral Venous Blood Culture - Preliminary NO GROWTH OBTAINED AFTER 96 HOURS, INCUBATION TO CONTINUE FOR 1 DAYS. 04/20/19 13:28 Blood - Peripheral Venous Blood Culture - Preliminary NO GROWTH OBTAINED AFTER 96 HOURS, INCUBATION TO CONTINUE FOR 1 DAYS. 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 Coli Esbl Biology Internship -D/C tolentino Problems reviewed: Yes Code(s): N39.0 - URINARY TRACT INFECTION, SITE NOT SPECIFIED Qualifiers: Urinary tract infection type: site unspecified Hematuria presence: without hematuria Qualified Code(s): N39.0 - Urinary tract infection, site not specified (8) Weakness Assessment/Plan: -Physical therapy once stable -SNF placement upon discharge Problems reviewed: Yes Code(s): R53.1 - WEAKNESS Assessment/Plan see problem list GI PPX Awaiting daughter to come from [place].
[2019-05-04] MEDS ORDERED: PT OWN MED DRAWER 7, Y5N ONE ×2 (08:26→17:25)
[2019-05-04] MEDS: CALCIUM ACETATE 667 MG CAPSULE (FP) PO SCH ×3 (08:37→16:43)
[2019-05-04] MEDS: LACTULOSE 20 GM/30 ML UDC (FOR ORAL USE ONLY) PO SCH ×2 (09:22→22:07)
[2019-05-04] MEDS: FUROSEMIDE 40 MG/4 ML INJECTABLE VIAL IVPUSH SCH (09:22)
[2019-05-04] MEDS: DOCUSATE SODIUM 100 MG CAPSULE (FP) PO SCH (09:22)
[2019-05-04] MEDS: RIFAXIMIN 550 MG TABLET (UD) PO SCH ×2 (09:22→22:07)
[2019-05-04] MEDS: amLODIPine BESYLATE 5 MG TABLET (FP) PO SCH (09:22)
[2019-05-04] MEDS: MIDODRINE HCL 5 MG TABLET PO SCH ×3 (09:22→17:14)
[2019-05-04] MEDS: HYDROCORTISONE 2.5% TOPICAL CREAM 30 GM TUBE TP SCH (09:23)
[2019-05-04] MEDS: POLYETHYLENE GLYCOL 3350 119 GM BTL PO SCH ×2 (09:25→22:07)
[2019-05-04] MEDS ORDERED: ERGOCALCIFEROL (VIT D2) 50,000 UNIT (1.25 MG) CAPSULE PO SCH (10:00)
--- NOTE | 2019-05-04 12:38 | PN ---
Progress Note (short form) - Note Progress Note: Awake, alert, confused. Creatinine continues to come down slowly. CBC, BMP 05/03/19 07:05 05/03/19 07:05 Elqiuis on hold. I would recommend evaluation for esophageal varices before resuming Eliquis (unless it was done in past).
[2019-05-04 13:52] LABS: BLOOD UREA NITROGEN 91.9 mg/dL (7-18); CREATININE 3.7 mg/dL (0.55-1.3); POTASSIUM 3.9 mmol/L (3.5-5.1)
--- NOTE | 2019-05-04 14:21 | PN ---
Progress Note, Physician History of Present Illness: pulmonary awake,alert,confused,-resp distress - Current Medication List Current Medications: Active Medications Albuterol Sulfate (Ventolin 0.083% Nebulizer Soln -) 1 amp NEB Q6H PRN PRN Reason: SHORT OF BREATH/WHEEZING Last Admin: 04/29/19 13:12 Dose: 1 amp Amlodipine Besylate (Norvasc -) 5 mg PO DAILY [facility] Last Admin: 05/04/19 09:22 Dose: 5 mg Apixaban (Eliquis -) 2.5 mg PO BID [facility] Last Admin: 05/03/19 21:53 Dose: 2.5 mg Calcium Acetate (Phoslo -) 667 mg PO TIDCM [facility] Last Admin: 05/04/19 13:01 Dose: 667 mg Docusate Sodium (Colace -) 100 mg PO DAILY [facility] Last Admin: 05/04/19 09:22 Dose: 100 mg Ergocalciferol (Drisdol -) 50,000 unit PO Q7D@1000 [facility] Last Admin: 05/04/19 09:23 Dose: 50,000 unit Furosemide (Lasix Injection -) 40 mg IVPUSH DAILY [facility] Last Admin: 05/04/19 09:22 Dose: 40 mg Hydrocortisone (Anusol 2.5% Hc Cream -) 1 applic TP DAILY [facility] Last Admin: 05/04/19 09:23 Dose: 1 applic Famotidine/Sodium Chloride (Pepcid 20 Mg Premixed Ivpb -) 20 mg in 50 mls @ 100 mls/hr IVPB Q48H [facility] Last Admin: 05/03/19 14:23 Dose: 100 mls/hr Lactulose (Cephulac (Oral Use)) 20 gm PO BID [facility] Last Admin: 05/04/19 09:22 Dose: 20 gm Midodrine (Proamatine -) 10 mg PO TID-MID [facility] Last Admin: 05/04/19 13:23 Dose: 10 mg Ondansetron HCl (Zofran -) 4 mg PO TID PRN PRN Reason: NAUSEA AND/OR VOMITING Polyethylene Glycol (Miralax (For Daily Use) -) 17 gm PO BID [facility] Last Admin: 05/04/19 09:25 Dose: Not Given Rifaximin (Xifaxan -) 550 mg PO BID [facility] Last Admin: 05/04/19 09:22 Dose: 550 mg Senna (Senna -) 1 tab PO HS [facility] Last Admin: 05/03/19 21:53 Dose: 1 tab - Objective Vital Signs: Vital Signs Temperature 98.1 F 05/04/19 10:00 Pulse Rate 93 H 05/04/19 10:00 Respiratory Rate 20 05/04/19 10:00 Blood Pressure 124/62 05/04/19 10:00 O2 Sat by Pulse Oximetry (%) 96 05/04/19 09:00 Constitutional: Yes: Well Nourished, Calm Eyes: Yes: WNL HENT: Yes: WNL Neck: Yes: WNL Cardiovascular: Yes: Regular Rate and Rhythm, S1, S2 Respiratory: Yes: Diminished Gastrointestinal: Yes: Normal Bowel Sounds, Soft Extremities: Yes: WNL Edema: Yes Labs: CBC, BMP 05/03/19 07:05 05/04/19 12:56 INR, PTT INR 1.52 (0.83-1.09) H 04/27/19 09:00 Problem List - Problems (1) Acute renal failure Code(s): N17.9 - ACUTE KIDNEY FAILURE, UNSPECIFIED (2) CKD (chronic kidney disease) Code(s): N18.9 - CHRONIC KIDNEY DISEASE, UNSPECIFIED (3) Coagulopathy Code(s): D68.9 - COAGULATION DEFECT, UNSPECIFIED (4) DVT (deep venous thrombosis) Code(s): I82.409 - ACUTE EMBOLISM AND THOMBOS UNSP DEEP VN UNSP LOWER EXTREMITY (5) Liver cirrhosis Code(s): K74.60 - UNSPECIFIED CIRRHOSIS OF LIVER Qualifiers: Ascites presence: with ascites (6) Respiratory distress Code(s): R06.03 - ACUTE RESPIRATORY DISTRESS (7) Hepatic encephalopathy Code(s): K72.90 - HEPATIC FAILURE, UNSPECIFIED WITHOUT COMA (8) Hypomagnesemia Code(s): E83.42 - HYPOMAGNESEMIA (9) Lactic acidosis Code(s): E87.2 - ACIDOSIS Assessment/Plan A/P UTI Resolved Septic Shock Acute Respiratory Failure Requiring HFOT resolved Acute Kidney Injury Lactic Acidosis Hep C Cirrhosis Ascites Thrombocytopenia/Anemia h/o DVT - continue midodrine - lactulose, rifaximin - PO as tolerated - monitor urine output, creatinine - aspiration precautions - DVT prophylaxis - paracentesis as per GI DR LOZA
--- NOTE | 2019-05-04 18:07 | PN ---
Progress Note, Physician History of Present Illness: Pt seen and examined at bedside. She is awake and appears comfortable. She denies shortness of breath. - Current Medication List Current Medications: Active Medications Albuterol Sulfate (Ventolin 0.083% Nebulizer Soln -) 1 amp NEB Q6H PRN PRN Reason: SHORT OF BREATH/WHEEZING Last Admin: 04/29/19 13:12 Dose: 1 amp Amlodipine Besylate (Norvasc -) 5 mg PO DAILY [facility] Last Admin: 05/04/19 09:22 Dose: 5 mg Apixaban (Eliquis -) 2.5 mg PO BID [facility] Last Admin: 05/03/19 21:53 Dose: 2.5 mg Calcium Acetate (Phoslo -) 667 mg PO TIDCM [facility] Last Admin: 05/04/19 16:43 Dose: 667 mg Docusate Sodium (Colace -) 100 mg PO DAILY [facility] Last Admin: 05/04/19 09:22 Dose: 100 mg Ergocalciferol (Drisdol -) 50,000 unit PO Q7D@1000 [facility] Last Admin: 05/04/19 09:23 Dose: 50,000 unit Furosemide (Lasix Injection -) 40 mg IVPUSH DAILY [facility] Last Admin: 05/04/19 09:22 Dose: 40 mg Hydrocortisone (Anusol 2.5% Hc Cream -) 1 applic TP DAILY [facility] Last Admin: 05/04/19 09:23 Dose: 1 applic Famotidine/Sodium Chloride (Pepcid 20 Mg Premixed Ivpb -) 20 mg in 50 mls @ 100 mls/hr IVPB Q48H [facility] Last Admin: 05/03/19 14:23 Dose: 100 mls/hr Lactulose (Cephulac (Oral Use)) 20 gm PO BID [facility] Last Admin: 05/04/19 09:22 Dose: 20 gm Midodrine (Proamatine -) 10 mg PO TID-MID [facility] Last Admin: 05/04/19 17:14 Dose: 10 mg Ondansetron HCl (Zofran -) 4 mg PO TID PRN PRN Reason: NAUSEA AND/OR VOMITING Polyethylene Glycol (Miralax (For Daily Use) -) 17 gm PO BID [facility] Last Admin: 05/04/19 09:25 Dose: Not Given Rifaximin (Xifaxan -) 550 mg PO BID [facility] Last Admin: 05/04/19 09:22 Dose: 550 mg Senna (Senna -) 1 tab PO HS [facility] Last Admin: 05/03/19 21:53 Dose: 1 tab - Objective Vital Signs: Vital Signs Temperature 98.1 F 05/04/19 16:20 Pulse Rate 108 H 05/04/19 16:20 Respiratory Rate 18 05/04/19 16:20 Blood Pressure 122/57 L 05/04/19 16:20 O2 Sat by Pulse Oximetry (%) 96 05/04/19 09:00 Constitutional: Yes: Calm Eyes: Yes: Conjunctiva Clear HENT: Yes: Atraumatic Neck: Yes: Supple Cardiovascular: Yes: S1, S2 Respiratory: Yes: CTA Bilaterally Gastrointestinal: Yes: Soft, Ascites Genitourinary: Yes: Incontinence Musculoskeletal: Yes: Muscle Weakness Edema: No Integumentary: Yes: Bruising Neurological: Yes: Oriented Labs: CBC, BMP 05/03/19 07:05 05/04/19 12:56 INR, PTT INR 1.52 (0.83-1.09) H 04/27/19 09:00 Assessment/Plan Current Medications Generic Name Dose Route Start Last Admin Trade Name Freq PRN Reason Stop Dose Admin Albuterol Sulfate 1 amp 04/27/19 12:33 04/29/19 13:12 Ventolin 0.083% Nebulizer Soln - NEB 1 amp Q6H PRN Administration SHORT OF BREATH/WHEEZING Amlodipine Besylate 5 mg 04/27/19 10:00 05/04/19 09:22 Norvasc - PO 5 mg DAILY [facility] Administration Apixaban 2.5 mg 05/02/19 10:00 05/03/19 21:53 Eliquis - PO 2.5 mg BID [facility] Administration Calcium Acetate 667 mg 04/28/19 12:00 05/04/19 16:43 Phoslo - PO 667 mg TIDCM [facility] Administration Docusate Sodium 100 mg 04/28/19 10:00 05/04/19 09:22 Colace - PO 100 mg DAILY [facility] Administration Ergocalciferol 50,000 unit 05/04/19 10:00 05/04/19 09:23 Drisdol - PO 50,000 unit Q7D@1000 [facility] Administration Furosemide 40 mg 05/01/19 10:00 05/04/19 09:22 Lasix Injection - IVPUSH 40 mg DAILY [facility] Administration Hydrocortisone 1 applic 05/02/19 10:00 05/04/19 09:23 Anusol 2.5% Hc Cream - TP 1 applic DAILY [facility] Administration Famotidine/Sodium Chloride 20 mg in 50 mls @ 100 mls/hr 04/27/19 14:45 14:23 Pepcid 20 Mg Premixed Ivpb - IVPB 100 mls/hr Q48H [facility] Administration Lactulose 20 gm 04/27/19 22:00 05/04/19 09:22 Cephulac (Oral Use) PO 20 gm BID [facility] Administration Midodrine 10 mg 04/27/19 14:00 05/04/19 17:14 Proamatine - PO 10 mg TID-MID [facility] Administration Ondansetron HCl 4 mg 04/27/19 12:33 Zofran - PO TID PRN NAUSEA AND/OR VOMITING Polyethylene Glycol 17 gm 04/27/19 22:00 05/04/19 09:25 Miralax (For Daily Use) - PO Not Given BID [facility] Rifaximin 550 mg 04/27/19 22:00 05/04/19 09:22 Xifaxan - PO 550 mg BID [facility] Administration Senna 1 tab 04/27/19 22:00 05/03/19 21:53 Senna - PO 1 tab HS [facility] Administration Impression 1. DAVID 2. CKD 3. hep C cirrhosis 4. UTI 5. sepsis 6. ascites 7. hypervolemic hyponatremia 8. coagulopathy 9. hypernatremia PLAN - sodium worsening - will give d5w and monitor volume status closely - cont lasix, may need to hold tomorrow - follow cryo levels - cont midodrine but decrease dose
[2019-05-04] MEDS ORDERED: DEXTROSE 5%-WATER - 1,000 ML IV SCH (18:15)
[2019-05-04] MEDS: SENNOSIDES 8.6MG TABLET (FP) PO SCH (22:07)
[2019-05-05 07:47] LABS: ALBUMIN 2.3 g/dl (3.4-5.0); BILIRUBIN,TOTAL 1.8 mg/dL (0.2-1); CALCIUM 8.9 mg/dL (8.5-10.1); CREATININE 3.6 mg/dL (0.55-1.3); TOT PROT 5.9 g/dl (6.4-8.2)
[2019-05-05] MEDS: CALCIUM ACETATE 667 MG CAPSULE (FP) PO SCH ×3 (09:19→17:38)
[2019-05-05] MEDS: MIDODRINE HCL 5 MG TABLET PO SCH ×3 (09:21→18:18)
[2019-05-05] MEDS: RIFAXIMIN 550 MG TABLET (UD) PO SCH ×2 (09:22→22:26)
[2019-05-05] MEDS: DOCUSATE SODIUM 100 MG CAPSULE (FP) PO SCH (09:22)
[2019-05-05] MEDS: LACTULOSE 20 GM/30 ML UDC (FOR ORAL USE ONLY) PO SCH ×2 (09:22→22:26)
[2019-05-05] MEDS: POLYETHYLENE GLYCOL 3350 119 GM BTL PO SCH ×2 (09:22→22:26)
[2019-05-05] MEDS: amLODIPine BESYLATE 5 MG TABLET (FP) PO SCH (09:22)
[2019-05-05] MEDS: FUROSEMIDE 40 MG/4 ML INJECTABLE VIAL IVPUSH SCH (09:23)
[2019-05-05] MEDS: HYDROCORTISONE 2.5% TOPICAL CREAM 30 GM TUBE TP SCH (09:23)
--- NOTE | 2019-05-05 09:38 | PN ---
Progress Note, Physician Chief Complaint: UTI Pneumonia Sepsis Septic shock History of Present Illness: NAD alert, pleasantly confused Pt's daughter in agreement of doing paracentesis Hold eliquis for now-evaluation for esophageal varices before resuming Eliquis IR consult - Current Medication List Current Medications: Active Medications Albuterol Sulfate (Ventolin 0.083% Nebulizer Soln -) 1 amp NEB Q6H PRN PRN Reason: SHORT OF BREATH/WHEEZING Last Admin: 04/29/19 13:12 Dose: 1 amp Amlodipine Besylate (Norvasc -) 5 mg PO DAILY [facility] Last Admin: 05/05/19 09:22 Dose: 5 mg Apixaban (Eliquis -) 2.5 mg PO BID [facility] Last Admin: 05/03/19 21:53 Dose: 2.5 mg Calcium Acetate (Phoslo -) 667 mg PO TIDCM [facility] Last Admin: 05/05/19 09:19 Dose: 667 mg Docusate Sodium (Colace -) 100 mg PO DAILY [facility] Last Admin: 05/05/19 09:22 Dose: 100 mg Ergocalciferol (Drisdol -) 50,000 unit PO Q7D@1000 [facility] Last Admin: 05/04/19 09:23 Dose: 50,000 unit Furosemide (Lasix Injection -) 40 mg IVPUSH DAILY [facility] Last Admin: 05/05/19 09:23 Dose: 40 mg Hydrocortisone (Anusol 2.5% Hc Cream -) 1 applic TP DAILY [facility] Last Admin: 05/05/19 09:23 Dose: 1 applic Famotidine/Sodium Chloride (Pepcid 20 Mg Premixed Ivpb -) 20 mg in 50 mls @ 100 mls/hr IVPB Q48H [facility] Last Admin: 05/03/19 14:23 Dose: 100 mls/hr Lactulose (Cephulac (Oral Use)) 20 gm PO BID [facility] Last Admin: 05/05/19 09:22 Dose: 20 gm Midodrine (Proamatine -) 5 mg PO TID-MID [facility] Last Admin: 05/05/19 09:21 Dose: 5 mg Ondansetron HCl (Zofran -) 4 mg PO TID PRN PRN Reason: NAUSEA AND/OR VOMITING Polyethylene Glycol (Miralax (For Daily Use) -) 17 gm PO BID [facility] Last Admin: 05/05/19 09:22 Dose: Not Given Rifaximin (Xifaxan -) 550 mg PO BID [facility] Last Admin: 05/05/19 09:22 Dose: 550 mg Senna (Senna -) 1 tab PO HS [facility] Last Admin: 05/04/19 22:07 Dose: 1 tab - Objective Vital Signs: Vital Signs Temperature 98.6 F 05/05/19 08:37 Pulse Rate 91 H 05/05/19 08:37 Respiratory Rate 20 05/05/19 08:37 Blood Pressure 119/65 05/05/19 08:37 O2 Sat by Pulse Oximetry (%) 96 05/04/19 21:00 Constitutional: Yes: Well Nourished, No Distress, Calm Cardiovascular: Yes: Regular Rate and Rhythm Respiratory: Yes: Regular Gastrointestinal: Yes: Normal Bowel Sounds, Soft Genitourinary: Yes: Incontinence Musculoskeletal: Yes: WNL Extremities: Yes: WNL Neurological: Yes: Alert, Pre-Existing Deficit Psychiatric: Yes: Alert Labs: CBC, BMP 05/03/19 07:05 05/05/19 06:29 INR, PTT INR 1.52 (0.83-1.09) H 04/27/19 09:00 Problem List - Problems (1) Hypotension Assessment/Plan: -2/2 to Urosepsis -Cardiology+ ID+ Nephrology on board -maintaining BP well -started on amlodipine+ midodrine Problems reviewed: Yes Code(s): I95.9 - HYPOTENSION, UNSPECIFIED (2) Acute renal failure Assessment/Plan: -2/2 to UTI -Nephrology on board -U/S renal shows no hydronephrosis and no obstruction -Monitor Cr Problems reviewed: Yes Code(s): N17.9 - ACUTE KIDNEY FAILURE, UNSPECIFIED (3) Coagulopathy Assessment/Plan: -2/2 to liver cirrhosis -Vit K + FFP as needed -Unsure why patient is on Eliquis 2.5 mg po BID vs 5 mg po bid? Problems reviewed: Yes Code(s): D68.9 - COAGULATION DEFECT, UNSPECIFIED (4) Hyponatremia Assessment/Plan: -improving -Nephrology on board -monitor trend Problems reviewed: Yes Code(s): E87.1 - HYPO-OSMOLALITY AND HYPONATREMIA (5) Liver cirrhosis Assessment/Plan: -MRI with ERCP done in 06/2018 showed numerous varices anterior to left hepatic lobe which inturn communicates with subcutaneous varices. Dilated distal SMV, splenic vein and proximal portal vein with multiple eccentric nonocclusive filling defects/thrombi Problems reviewed: Yes Code(s): K74.60 - UNSPECIFIED CIRRHOSIS OF LIVER Qualifiers: Ascites presence: with ascites (6) Sepsis Assessment/Plan: -2/2 UTI -IV abx completed -ID consult -afebrile -leukocytosis improved -Mental status improved -Cultures: Microbiology 04/20/19 13:28 Blood - Peripheral Venous Blood Culture - Preliminary NO GROWTH OBTAINED AFTER 96 HOURS, INCUBATION TO CONTINUE FOR 1 DAYS. 04/20/19 13:28 Blood - Peripheral Venous Blood Culture - Preliminary NO GROWTH OBTAINED AFTER 96 HOURS, INCUBATION TO CONTINUE FOR 1 DAYS. 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 Coli Esbl [employer] Problems reviewed: Yes Code(s): A41.9 - SEPSIS, UNSPECIFIED ORGANISM (7) Urinary tract infection Assessment/Plan: -2/2 UTI -IV abx completed -ID consult -afebrile -leukocytosis improved -Mental status improved -Cultures: Microbiology 04/20/19 13:28 Blood - Peripheral Venous Blood Culture - Preliminary NO GROWTH OBTAINED AFTER 96 HOURS, INCUBATION TO CONTINUE FOR 1 DAYS. 04/20/19 13:28 Blood - Peripheral Venous Blood Culture - Preliminary NO GROWTH OBTAINED AFTER 96 HOURS, INCUBATION TO CONTINUE FOR 1 DAYS. 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 Coli Esbl [employer]ship Problems reviewed: Yes Code(s): N39.0 - URINARY TRACT INFECTION, SITE NOT SPECIFIED Qualifiers: Urinary tract infection type: site unspecified Hematuria presence: without hematuria Qualified Code(s): N39.0 - Urinary tract infection, site not specified (8) Weakness Assessment/Plan: -Physical therapy once stable -SNF placement upon discharge Problems reviewed: Yes Code(s): R53.1 - WEAKNESS
[2019-05-05] MEDS: DEXTROSE 5%-WATER - 1,000 ML IV SCH (10:50)
--- NOTE | 2019-05-05 14:06 | FALL ---
Fall Exam - Event Witnessed fall: No - Pre-Fall Mental Status: Disoriented (oriented to person and only occasionally oriented to place), Uncooperative (Pt only intermittently follows commands.) Current Medications: Current Medications Generic Name Dose Route Start Last Admin Trade Name Freq PRN Reason Stop Dose Admin Albuterol Sulfate 1 amp 04/27/19 12:33 04/29/19 13:12 Ventolin 0.083% Nebulizer Soln - NEB 1 amp Q6H PRN Administration SHORT OF BREATH/WHEEZING Amlodipine Besylate 5 mg 04/27/19 10:00 05/05/19 09:22 Norvasc - PO 5 mg DAILY [facility] Administration Apixaban 2.5 mg 05/02/19 10:00 05/03/19 21:53 Eliquis - PO 2.5 mg BID [facility] Administration Calcium Acetate 667 mg 04/28/19 12:00 05/05/19 11:37 Phoslo - PO 667 mg TIDCM [facility] Administration Docusate Sodium 100 mg 04/28/19 10:00 05/05/19 09:22 Colace - PO 100 mg DAILY [facility] Administration Ergocalciferol 50,000 unit 05/04/19 10:00 05/04/19 09:23 Drisdol - PO 50,000 unit Q7D@1000 [facility] Administration Furosemide 40 mg 05/01/19 10:00 05/05/19 09:23 Lasix Injection - IVPUSH 40 mg DAILY [facility] Administration Hydrocortisone 1 applic 05/02/19 10:00 05/05/19 09:23 Anusol 2.5% Hc Cream - TP 1 applic DAILY [facility] Administration Famotidine/Sodium Chloride 20 mg in 50 mls @ 100 mls/hr 04/27/19 14:45 14:23 Pepcid 20 Mg Premixed Ivpb - IVPB 100 mls/hr Q48H [facility] Administration Dextrose 1,000 mls @ 42 mls/hr 05/05/19 10:30 05/05/19 10:50 D5w - IV 42 mls/hr Q24H [facility] Administration Lactulose 20 gm 04/27/19 22:00 05/05/19 09:22 Cephulac (Oral Use) PO 20 gm BID [facility] Administration Midodrine 5 mg 05/04/19 18:07 05/05/19 09:21 Proamatine - PO 5 mg TID-MID [facility] Administration Ondansetron HCl 4 mg 04/27/19 12:33 Zofran - PO TID PRN NAUSEA AND/OR VOMITING Polyethylene Glycol 17 gm 04/27/19 22:00 05/05/19 09:22 Miralax (For Daily Use) - PO Not Given BID [facility] Rifaximin 550 mg 04/27/19 22:00 05/05/19 09:22 Xifaxan - PO 550 mg BID [facility] Administration Senna 1 tab 04/27/19 22:00 05/04/19 22:07 Senna - PO 1 tab HS [facility] Administration - Post-Fall Patient Outcome: Pain Only Exam Findings: No bruising or evidence of trauma. Tachycardic, 4/6 holosystolic murmur (baseline). Lungs CTAB. Abdomen soft, nontender. Ext 2+ pulses. Neuro: Oriented x1. Full ROM in all extremities. 4/5 strength in upper and lower extremities. Rest of exam limited given pt's baseline Vital Signs: Vital Signs Temperature 98.6 F 05/05/19 08:37 Pulse Rate 91 H 05/05/19 08:37 Respiratory Rate 20 05/05/19 09:00 Blood Pressure 119/65 05/05/19 08:37 O2 Sat by Pulse Oximetry (%) 98 05/05/19 09:00 LOC Post-Fall: Unchanged Identify factors for HIGH RISK for Head Injury: Pt on anticoagulant, Pt has known coagulopathy
[2019-05-05] MEDS: FAMOTIDINE 20 MG/50 ML IVPB 20 MG/50 ML MG IVPB SCH (16:07)
--- NOTE | 2019-05-05 20:02 | PN ---
Progress Note, Physician History of Present Illness: Pt seen and examined at bedside. She is more awake and alert today. She did have a fall. - Current Medication List Current Medications: Active Medications Albuterol Sulfate (Ventolin 0.083% Nebulizer Soln -) 1 amp NEB Q6H PRN PRN Reason: SHORT OF BREATH/WHEEZING Last Admin: 04/29/19 13:12 Dose: 1 amp Amlodipine Besylate (Norvasc -) 5 mg PO DAILY [facility] Last Admin: 05/05/19 09:22 Dose: 5 mg Apixaban (Eliquis -) 2.5 mg PO BID [facility] Last Admin: 05/03/19 21:53 Dose: 2.5 mg Calcium Acetate (Phoslo -) 667 mg PO TIDCM [facility] Last Admin: 05/05/19 17:38 Dose: 667 mg Docusate Sodium (Colace -) 100 mg PO DAILY [facility] Last Admin: 05/05/19 09:22 Dose: 100 mg Ergocalciferol (Drisdol -) 50,000 unit PO Q7D@1000 [facility] Last Admin: 05/04/19 09:23 Dose: 50,000 unit Furosemide (Lasix Injection -) 40 mg IVPUSH DAILY [facility] Last Admin: 05/05/19 09:23 Dose: 40 mg Hydrocortisone (Anusol 2.5% Hc Cream -) 1 applic TP DAILY [facility] Last Admin: 05/05/19 09:23 Dose: 1 applic Famotidine/Sodium Chloride (Pepcid 20 Mg Premixed Ivpb -) 20 mg in 50 mls @ 100 mls/hr IVPB Q48H [facility] Last Admin: 05/05/19 16:07 Dose: 100 mls/hr Dextrose (D5w -) 1,000 mls @ 42 mls/hr IV Q24H [facility] Last Admin: 05/05/19 10:50 Dose: 42 mls/hr Lactulose (Cephulac (Oral Use)) 20 gm PO BID [facility] Last Admin: 05/05/19 09:22 Dose: 20 gm Midodrine (Proamatine -) 5 mg PO TID-MID [facility] Last Admin: 05/05/19 18:18 Dose: 5 mg Ondansetron HCl (Zofran -) 4 mg PO TID PRN PRN Reason: NAUSEA AND/OR VOMITING Polyethylene Glycol (Miralax (For Daily Use) -) 17 gm PO BID [facility] Last Admin: 05/05/19 09:22 Dose: Not Given Rifaximin (Xifaxan -) 550 mg PO BID [facility] Last Admin: 05/05/19 09:22 Dose: 550 mg Senna (Senna -) 1 tab PO HS [facility] Last Admin: 05/04/19 22:07 Dose: 1 tab - Objective Vital Signs: Vital Signs Temperature 97.8 F 05/05/19 19:11 Pulse Rate 94 H 05/05/19 19:11 Respiratory Rate 20 05/05/19 19:11 Blood Pressure 129/66 05/05/19 19:11 O2 Sat by Pulse Oximetry (%) 98 05/05/19 16:09 Constitutional: Yes: Calm Eyes: Yes: Conjunctiva Clear HENT: Yes: Atraumatic Neck: Yes: Supple Cardiovascular: Yes: S1, S2 Respiratory: Yes: CTA Bilaterally Gastrointestinal: Yes: Soft, Ascites Genitourinary: Yes: WNL Musculoskeletal: Yes: WNL Edema: Yes Edema: LLE: Trace, RLE: Trace Neurological: Yes: Oriented Psychiatric: Yes: Oriented Labs: CBC, BMP 05/03/19 07:05 05/05/19 06:29 INR, PTT INR 1.52 (0.83-1.09) H 04/27/19 09:00 Assessment/Plan Current Medications Generic Name Dose Route Start Last Admin Trade Name Freq PRN Reason Stop Dose Admin Albuterol Sulfate 1 amp 04/27/19 12:33 04/29/19 13:12 Ventolin 0.083% Nebulizer Soln - NEB 1 amp Q6H PRN Administration SHORT OF BREATH/WHEEZING Amlodipine Besylate 5 mg 04/27/19 10:00 05/05/19 09:22 Norvasc - PO 5 mg DAILY [facility] Administration Apixaban 2.5 mg 05/02/19 10:00 05/03/19 21:53 Eliquis - PO 2.5 mg BID [facility] Administration Calcium Acetate 667 mg 04/28/19 12:00 05/05/19 17:38 Phoslo - PO 667 mg TIDCM [facility] Administration Docusate Sodium 100 mg 04/28/19 10:00 05/05/19 09:22 Colace - PO 100 mg DAILY [facility] Administration Ergocalciferol 50,000 unit 05/04/19 10:00 05/04/19 09:23 Drisdol - PO 50,000 unit Q7D@1000 [facility] Administration Furosemide 40 mg 05/01/19 10:00 05/05/19 09:23 Lasix Injection - IVPUSH 40 mg DAILY [facility] Administration Hydrocortisone 1 applic 05/02/19 10:00 05/05/19 09:23 Anusol 2.5% Hc Cream - TP 1 applic DAILY [facility] Administration Famotidine/Sodium Chloride 20 mg in 50 mls @ 100 mls/hr 04/27/19 14:45 16:07 Pepcid 20 Mg Premixed Ivpb - IVPB 100 mls/hr Q48H [facility] Administration Dextrose 1,000 mls @ 42 mls/hr 05/05/19 10:30 05/05/19 10:50 D5w - IV 42 mls/hr Q24H [facility] Administration Lactulose 20 gm 04/27/19 22:00 05/05/19 09:22 Cephulac (Oral Use) PO 20 gm BID [facility] Administration Midodrine 5 mg 05/04/19 18:07 05/05/19 18:18 Proamatine - PO 5 mg TID-MID [facility] Administration Ondansetron HCl 4 mg 04/27/19 12:33 Zofran - PO TID PRN NAUSEA AND/OR VOMITING Polyethylene Glycol 17 gm 04/27/19 22:00 05/05/19 09:22 Miralax (For Daily Use) - PO Not Given BID [facility] Rifaximin 550 mg 04/27/19 22:00 05/05/19 09:22 Xifaxan - PO 550 mg BID [facility] Administration Senna 1 tab 04/27/19 22:00 05/04/19 22:07 Senna - PO 1 tab HS [facility] Administration Impression 1. DAVID 2. CKD 3. hep C cirrhosis 4. UTI 5. sepsis 6. ascites 7. hypervolemic hyponatremia 8. coagulopathy 9. hypernatremia PLAN - start d5w - monitor sodium - monitor renal function - follow cryo levels - cont midodrine, titrate down the dose
[2019-05-05] MEDS ORDERED: PT OWN MED DRAWER 7, Y5N ONE (20:12)
[2019-05-05] MEDS: SENNOSIDES 8.6MG TABLET (FP) PO SCH (22:26)
[2019-05-06] MEDS: CALCIUM ACETATE 667 MG CAPSULE (FP) PO SCH ×3 (09:07→17:35)
[2019-05-06] MEDS: FUROSEMIDE 40 MG/4 ML INJECTABLE VIAL IVPUSH SCH (09:45)
[2019-05-06] MEDS: DOCUSATE SODIUM 100 MG CAPSULE (FP) PO SCH (09:45)
[2019-05-06] MEDS: amLODIPine BESYLATE 5 MG TABLET (FP) PO SCH (09:45)
[2019-05-06] MEDS: LACTULOSE 20 GM/30 ML UDC (FOR ORAL USE ONLY) PO SCH ×2 (09:45→21:00)
[2019-05-06] MEDS: MIDODRINE HCL 5 MG TABLET PO SCH ×3 (09:45→17:35)
[2019-05-06] MEDS: RIFAXIMIN 550 MG TABLET (UD) PO SCH ×2 (09:45→21:00)
[2019-05-06] MEDS: HYDROCORTISONE 2.5% TOPICAL CREAM 30 GM TUBE TP SCH (09:46)
[2019-05-06] MEDS: POLYETHYLENE GLYCOL 3350 119 GM BTL PO SCH ×2 (09:46→21:14)
--- NOTE | 2019-05-06 10:07 | PN ---
Progress Note, Physician Chief Complaint: Sepsis Renal Failure Liver Cirrhosis History of Present Illness: Previous notes and events reviewed awake and alert, knows name and location NAD patient had fall on 05/05/19, radiology reports reviewed Na showing uptrend Stool OB neg - Current Medication List Current Medications: Active Medications Albuterol Sulfate (Ventolin 0.083% Nebulizer Soln -) 1 amp NEB Q6H PRN PRN Reason: SHORT OF BREATH/WHEEZING Last Admin: 04/29/19 13:12 Dose: 1 amp Amlodipine Besylate (Norvasc -) 5 mg PO DAILY [facility] Last Admin: 05/06/19 09:45 Dose: 5 mg Apixaban (Eliquis -) 2.5 mg PO BID [facility] Last Admin: 05/03/19 21:53 Dose: 2.5 mg Calcium Acetate (Phoslo -) 667 mg PO TIDCM [facility] Last Admin: 05/06/19 09:07 Dose: 667 mg Docusate Sodium (Colace -) 100 mg PO DAILY [facility] Last Admin: 05/06/19 09:45 Dose: 100 mg Ergocalciferol (Drisdol -) 50,000 unit PO Q7D@1000 [facility] Last Admin: 05/04/19 09:23 Dose: 50,000 unit Furosemide (Lasix Injection -) 40 mg IVPUSH DAILY [facility] Last Admin: 05/06/19 09:45 Dose: 40 mg Hydrocortisone (Anusol 2.5% Hc Cream -) 1 applic TP DAILY [facility] Last Admin: 05/06/19 09:46 Dose: 1 applic Famotidine/Sodium Chloride (Pepcid 20 Mg Premixed Ivpb -) 20 mg in 50 mls @ 100 mls/hr IVPB Q48H [facility] Last Admin: 05/05/19 16:07 Dose: 100 mls/hr Dextrose (D5w -) 1,000 mls @ 42 mls/hr IV Q24H [facility] Last Admin: 05/05/19 10:50 Dose: 42 mls/hr Lactulose (Cephulac (Oral Use)) 20 gm PO BID [facility] Last Admin: 05/06/19 09:45 Dose: 20 gm Midodrine (Proamatine -) 5 mg PO TID-MID [facility] Last Admin: 05/06/19 09:45 Dose: 5 mg Ondansetron HCl (Zofran -) 4 mg PO TID PRN PRN Reason: NAUSEA AND/OR VOMITING Polyethylene Glycol (Miralax (For Daily Use) -) 17 gm PO BID [facility] Last Admin: 05/06/19 09:46 Dose: Not Given Rifaximin (Xifaxan -) 550 mg PO BID [facility] Last Admin: 05/06/19 09:45 Dose: 550 mg Senna (Senna -) 1 tab PO HS [facility] Last Admin: 05/05/19 22:26 Dose: 1 tab - Objective Vital Signs: Vital Signs Temperature 97.8 F 05/06/19 09:11 Pulse Rate 88 05/06/19 09:11 Respiratory Rate 20 05/06/19 09:11 Blood Pressure 138/80 05/06/19 09:11 O2 Sat by Pulse Oximetry (%) 98 05/05/19 21:00 Constitutional: Yes: No Distress, Calm Eyes: Yes: Conjunctiva Clear HENT: Yes: Atraumatic Cardiovascular: Yes: Regular Rate and Rhythm Respiratory: Yes: Regular, Diminished, On Nasal O2 Gastrointestinal: Yes: Normal Bowel Sounds, Soft, Ascites Genitourinary: Yes: Laguerre Present Musculoskeletal: Yes: Muscle Weakness Extremities: Yes: WNL Edema: No Integumentary: Yes: Bruising Neurological: Yes: Alert, Confusion Psychiatric: Yes: Alert Labs: CBC, BMP 05/03/19 07:05 05/05/19 06:29 INR, PTT INR 1.52 (0.83-1.09) H 04/27/19 09:00 Microbiology 04/20/19 13:28 Blood - Peripheral Venous Blood Culture - Final NO GROWTH AFTER 5 DAYS INCUBATION 04/20/19 13:28 Blood - Peripheral Venous Blood Culture - Final NO GROWTH AFTER 5 DAYS INCUBATION 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 Coli [employer] - ....Imaging Cat Scan: Report Reviewed Problem List - Problems (1) CKD (chronic kidney disease) Assessment/Plan: -BUN/Cr 73.8/3.3 -Renal on board -monitor renal function daily -Renal US shows both kidneys appear unremarkable without evidence of hydronephrosis or gross renal stones Code(s): N18.9 - CHRONIC KIDNEY DISEASE, UNSPECIFIED (2) Abdominal pain Assessment/Plan: -Abdominal US done and shows liver cirrhosis with splenomegaly with significant amount of free fluid/ascites in upper abdomen and lower quadrants, thickening of gallbladder -GI on board -ABdominal US~GI recommend diagnostic paracentesis to eval fluid for cell count with diff, culture, total protein, albumin, cytology -repeat Abd US shows volume of ascites increase in comparison to US 04/20/19 -pt daughter in agreement for paracentesis, Eliquis on hold Code(s): R10.9 - UNSPECIFIED ABDOMINAL PAIN (3) Altered mental state Assessment/Plan: -toxic metabolic encephalopathy due to dementia vs renal failure vs CKD -aspiration precaution -trial of dysphagia ground diet and nectar thick liquid -Ammonia 11.10 -Head CT scan shows generalized volume loss, moderate to marked ventricular dilatation mainly in the lateral and third ventricles including the temporal horns without interval change, although findings may be due to central atrophy normal pressure hydrocephalus could not be excluded Code(s): R41.82 - ALTERED MENTAL STATUS, UNSPECIFIED (4) CHF (congestive heart failure) Assessment/Plan: -daily weights -fluid restriction -strict I&Os -Furosemide -BNP 4540 Code(s): I50.9 - HEART FAILURE, UNSPECIFIED (5) 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 Assessment/Plan: -GI on board -Abdominal US shows liver cirrhosis with splenomegaly with significant amount of free fluid/ascites in upper abdomen and lower quadrants -AST 54, Alk Phos 135 -will need to have discussion with family in regards to GOC, if aggressive treatment is warranted will need transfer to liver center for mangement of underlying chronic liver disease -ABdominal US~GI recommend diagnostic paracentesis to eval fluid for cell count with diff, culture, total protein, albumin, cytology -repeat Abd US shows volume of ascites increase in comparison to US 04/20/19 -Ammonia level 11.10 -daughter is in agreement and wants paracentesis, Eliquis on hold Code(s): B18.2 - CHRONIC VIRAL HEPATITIS C; K74.60 - UNSPECIFIED CIRRHOSIS OF LIVER (6) Hypertension Assessment/Plan: -Amlodipine Code(s): I10 - ESSENTIAL (PRIMARY) HYPERTENSION (7) Hypoxia Assessment/Plan: -Pulm on board -O2 via NC -keep SpO2 >90% -CXR shows mild congestive changes -bronchodilators -repeat CXR shows congestive and infiltrative changes Code(s): R09.02 - HYPOXEMIA (8) Urinary tract infection Assessment/Plan: -ID on board -no leukocytosis -afebrile -Ertapenem discontinued, will monitor off -UA shows 3+ leuks, 1+ bilirubin, 3+ blood -UC positive Code(s): N39.0 - URINARY TRACT INFECTION, SITE NOT SPECIFIED Qualifiers: Urinary tract infection type: site unspecified Hematuria presence: without hematuria Qualified Code(s): N39.0 - Urinary tract infection, site not specified (9) Sepsis Assessment/Plan: -ID consult -no leukocytosis -afebrile -Ertapenem d/c, monitor off -UA shows 3+ leuks, 1+ bilirubin, 3+ blood -UC positive -BC neg -LA 4.9~4.1~2.4~1.7 -CXR shows congestive and infiltrative changes Code(s): A41.9 - SEPSIS, UNSPECIFIED ORGANISM (10) DVT (deep venous thrombosis) Assessment/Plan: -Eliquis on hold for paracentesis Code(s): I82.409 - ACUTE EMBOLISM AND THOMBOS UNSP DEEP VN UNSP LOWER EXTREMITY (11) Hyponatremia Assessment/Plan: -resolved, now with elevated Na -Na 153 -monitor electrolytes daily -renal on board Code(s): E87.1 - HYPO-OSMOLALITY AND HYPONATREMIA (12) Hypotension Assessment/Plan: -resolved Code(s): I95.9 - HYPOTENSION, UNSPECIFIED Assessment/Plan see problem list palliative consult sNF when medically cleared for discharge
--- NOTE | 2019-05-06 10:29 | PN ---
Progress Note (short form) - Note Progress Note: PULMONARY Remains confused. Denies shortness of breath. Vital Signs Period Temp Pulse Resp BP Sys/Bolaños Pulse Ox Last 24 Hr 97.6 F-98.5 F 88-100 18-22 120-140/60-80 98-98 Gen: confused, mildly tachypneic Heart: RRR, +systolic murmur Lung: decreased breath sounds at the bases Abd: softly distended, nontender Ext: no edema CBC, BMP 05/03/19 07:05 05/05/19 06:29 Active Medications Albuterol Sulfate (Ventolin 0.083% Nebulizer Soln -) 1 amp NEB Q6H PRN PRN Reason: SHORT OF BREATH/WHEEZING Last Admin: 04/29/19 13:12 Dose: 1 amp Amlodipine Besylate (Norvasc -) 5 mg PO DAILY [facility] Last Admin: 05/06/19 09:45 Dose: 5 mg Apixaban (Eliquis -) 2.5 mg PO BID [facility] Last Admin: 05/03/19 21:53 Dose: 2.5 mg Calcium Acetate (Phoslo -) 667 mg PO TIDCM [facility] Last Admin: 05/06/19 09:07 Dose: 667 mg Docusate Sodium (Colace -) 100 mg PO DAILY [facility] Last Admin: 05/06/19 09:45 Dose: 100 mg Ergocalciferol (Drisdol -) 50,000 unit PO Q7D@1000 [facility] Last Admin: 05/04/19 09:23 Dose: 50,000 unit Furosemide (Lasix Injection -) 40 mg IVPUSH DAILY [facility] Last Admin: 05/06/19 09:45 Dose: 40 mg Hydrocortisone (Anusol 2.5% Hc Cream -) 1 applic TP DAILY [facility] Last Admin: 05/06/19 09:46 Dose: 1 applic Famotidine/Sodium Chloride (Pepcid 20 Mg Premixed Ivpb -) 20 mg in 50 mls @ 100 mls/hr IVPB Q48H [facility] Last Admin: 05/05/19 16:07 Dose: 100 mls/hr Dextrose (D5w -) 1,000 mls @ 42 mls/hr IV Q24H [facility] Last Admin: 05/05/19 10:50 Dose: 42 mls/hr Lactulose (Cephulac (Oral Use)) 20 gm PO BID [facility] Last Admin: 05/06/19 09:45 Dose: 20 gm Midodrine (Proamatine -) 5 mg PO TID-MID [facility] Last Admin: 05/06/19 09:45 Dose: 5 mg Ondansetron HCl (Zofran -) 4 mg PO TID PRN PRN Reason: NAUSEA AND/OR VOMITING Polyethylene Glycol (Miralax (For Daily Use) -) 17 gm PO BID [facility] Last Admin: 05/06/19 09:46 Dose: Not Given Rifaximin (Xifaxan -) 550 mg PO BID [facility] Last Admin: 05/06/19 09:45 Dose: 550 mg Senna (Senna -) 1 tab PO HS [facility] Last Admin: 05/05/19 22:26 Dose: 1 tab A/P UTI Resolved Septic Shock Acute Respiratory Failure Requiring HFOT Acute Kidney Injury Lactic Acidosis Hep C Cirrhosis Ascites Thrombocytopenia/Anemia h/o DVT - completed antibiotics - increase free water replacement - continue midodrine - lactulose, rifaximin - PO as tolerated - monitor urine output, creatinine - aspiration precautions - DVT prophylaxis
[2019-05-06] MEDS: DEXTROSE 5%-WATER - 1,000 ML IV SCH ×2 (10:30→13:54)
[2019-05-06 11:45] LABS: INR 1.42 (0.83-1.09); PROTHROMBIN TIME (PATIENT) 16.8 SEC (9.7-13.0)
--- NOTE | 2019-05-06 12:08 | PN.GI ---
GI Progress Note Subjective: Continues with confusion. Diarrhea continues as well. - Objective Vital Signs: Vital Signs Temperature 97.8 F 05/06/19 09:11 Pulse Rate 88 05/06/19 09:11 Respiratory Rate 20 05/06/19 09:11 Blood Pressure 138/80 05/06/19 09:11 O2 Sat by Pulse Oximetry (%) 98 05/06/19 09:00 Gastrointestinal Inspection: Yes: Ascites. No: Distention ...Auscultate: Yes: Normoactive Bowel Sounds ...Palpate: Yes: Soft. No: Tenderness Labs: CBC, BMP 05/03/19 07:05 05/05/19 06:29 INR, PTT INR 1.42 (0.83-1.09) H 05/06/19 11:08 Assessment/Plan Continued slowly resolving acute kidney injury in setting of cirrhosis, PSE. Would continue with current abx/lactulose Diagnostic paracentesis when able Follow MS Fluid/electrolyte management per renal team
[2019-05-06 12:44] LABS: BASO % 1.1 % (0-2.0); EOS % 4.5 % (0-4.5); HEMATOCRIT 28.4 % (32.4-45.2); HEMOGLOBIN 9.2 GM/dL (10.7-15.3); LYMPH % 16.5 % (8-40); MCH 31.6 pg (25.7-33.7); MCHC 32.5 g/dl (32.0-36.0); MEAN CELL VOLUME 97.3 fl (80-96); MEAN PLT VOLUME 8.5 fl (7.5-11.1); MONO % 10.8 % (3.8-10.2); NEUT % 67.1 % (42.8-82.8); PLATELET COUNT 131 K/MM3 (134-434); RBC 2.91 M/mm3 (3.60-5.2); RDW 20.6 % (11.6-15.6); WHITE BLOOD COUNT 6.5 K/mm3 (4.0-10.0)
[2019-05-06 13:09] LABS: ALBUMIN 2.4 g/dl (3.4-5.0); BLOOD UREA NITROGEN 73.8 mg/dL (7-18); CREATININE 3.3 mg/dL (0.55-1.3); POTASSIUM 3.8 mmol/L (3.5-5.1); TOT PROT 6.3 g/dl (6.4-8.2)
[2019-05-06 13:13] LABS: ANISOCYTOSIS 2+; MACROCYTOSIS 1+; PLATELET ESTIMATE DECREASED
[2019-05-06 15:36] VITALS: BMI 26.4
--- NOTE | 2019-05-06 16:12 | PN ---
Progress Note, Physician History of Present Illness: Pt seen and examined at bedside. She is awake and appears comfortable. - Current Medication List Current Medications: Active Medications Albuterol Sulfate (Ventolin 0.083% Nebulizer Soln -) 1 amp NEB Q6H PRN PRN Reason: SHORT OF BREATH/WHEEZING Last Admin: 04/29/19 13:12 Dose: 1 amp Amlodipine Besylate (Norvasc -) 5 mg PO DAILY [facility] Last Admin: 05/06/19 09:45 Dose: 5 mg Apixaban (Eliquis -) 2.5 mg PO BID [facility] Last Admin: 05/03/19 21:53 Dose: 2.5 mg Calcium Acetate (Phoslo -) 667 mg PO TIDCM [facility] Last Admin: 05/06/19 12:46 Dose: 667 mg Docusate Sodium (Colace -) 100 mg PO DAILY [facility] Last Admin: 05/06/19 09:45 Dose: 100 mg Ergocalciferol (Drisdol -) 50,000 unit PO Q7D@1000 [facility] Last Admin: 05/04/19 09:23 Dose: 50,000 unit Furosemide (Lasix Injection -) 40 mg IVPUSH DAILY [facility] Last Admin: 05/06/19 09:45 Dose: 40 mg Hydrocortisone (Anusol 2.5% Hc Cream -) 1 applic TP DAILY [facility] Last Admin: 05/06/19 09:46 Dose: 1 applic Famotidine/Sodium Chloride (Pepcid 20 Mg Premixed Ivpb -) 20 mg in 50 mls @ 100 mls/hr IVPB Q48H [facility] Last Admin: 05/05/19 16:07 Dose: 100 mls/hr Dextrose (D5w -) 1,000 mls @ 42 mls/hr IV Q24H [facility] Last Admin: 05/06/19 13:54 Dose: 42 mls/hr Lactulose (Cephulac (Oral Use)) 20 gm PO BID [facility] Last Admin: 05/06/19 09:45 Dose: 20 gm Midodrine (Proamatine -) 5 mg PO TID-MID [facility] Last Admin: 05/06/19 14:07 Dose: 5 mg Ondansetron HCl (Zofran -) 4 mg PO TID PRN PRN Reason: NAUSEA AND/OR VOMITING Polyethylene Glycol (Miralax (For Daily Use) -) 17 gm PO BID [facility] Last Admin: 05/06/19 09:46 Dose: Not Given Rifaximin (Xifaxan -) 550 mg PO BID [facility] Last Admin: 05/06/19 09:45 Dose: 550 mg Senna (Senna -) 1 tab PO HS [facility] Last Admin: 05/05/19 22:26 Dose: 1 tab - Objective Vital Signs: Vital Signs Temperature 98.2 F 05/06/19 13:11 Pulse Rate 92 H 05/06/19 13:11 Respiratory Rate 20 05/06/19 13:11 Blood Pressure 120/70 05/06/19 13:11 O2 Sat by Pulse Oximetry (%) 98 05/06/19 09:00 Constitutional: Yes: Calm Eyes: Yes: Conjunctiva Clear HENT: Yes: Atraumatic Neck: Yes: Supple Cardiovascular: Yes: S1, S2 Respiratory: Yes: On Nasal O2 Gastrointestinal: Yes: Normal Bowel Sounds, Soft, Ascites Genitourinary: Yes: WNL Musculoskeletal: Yes: WNL Neurological: Yes: Confusion Labs: CBC, BMP 05/06/19 11:37 05/06/19 11:37 INR, PTT INR 1.42 (0.83-1.09) H 05/06/19 11:08 Assessment/Plan Current Medications Generic Name Dose Route Start Last Admin Trade Name Freq PRN Reason Stop Dose Admin Albuterol Sulfate 1 amp 04/27/19 12:33 04/29/19 13:12 Ventolin 0.083% Nebulizer Soln - NEB 1 amp Q6H PRN Administration SHORT OF BREATH/WHEEZING Amlodipine Besylate 5 mg 04/27/19 10:00 05/06/19 09:45 Norvasc - PO 5 mg DAILY [facility] Administration Apixaban 2.5 mg 05/02/19 10:00 05/03/19 21:53 Eliquis - PO 2.5 mg BID [facility] Administration Calcium Acetate 667 mg 04/28/19 12:00 05/06/19 12:46 Phoslo - PO 667 mg TIDCM [facility] Administration Docusate Sodium 100 mg 04/28/19 10:00 05/06/19 09:45 Colace - PO 100 mg DAILY [facility] Administration Ergocalciferol 50,000 unit 05/04/19 10:00 05/04/19 09:23 Drisdol - PO 50,000 unit Q7D@1000 [facility] Administration Furosemide 40 mg 05/01/19 10:00 05/06/19 09:45 Lasix Injection - IVPUSH 40 mg DAILY [facility] Administration Hydrocortisone 1 applic 05/02/19 10:00 05/06/19 09:46 Anusol 2.5% Hc Cream - TP 1 applic DAILY [facility] Administration Famotidine/Sodium Chloride 20 mg in 50 mls @ 100 mls/hr 04/27/19 14:45 16:07 Pepcid 20 Mg Premixed Ivpb - IVPB 100 mls/hr Q48H [facility] Administration Dextrose 1,000 mls @ 42 mls/hr 05/05/19 10:30 05/06/19 13:54 D5w - IV 42 mls/hr Q24H [facility] Administration Lactulose 20 gm 04/27/19 22:00 05/06/19 09:45 Cephulac (Oral Use) PO 20 gm BID [facility] Administration Midodrine 5 mg 05/04/19 18:07 05/06/19 14:07 Proamatine - PO 5 mg TID-MID [facility] Administration Ondansetron HCl 4 mg 04/27/19 12:33 Zofran - PO TID PRN NAUSEA AND/OR VOMITING Polyethylene Glycol 17 gm 04/27/19 22:00 05/06/19 09:46 Miralax (For Daily Use) - PO Not Given BID [facility] Rifaximin 550 mg 04/27/19 22:00 05/06/19 09:45 Xifaxan - PO 550 mg BID [facility] Administration Senna 1 tab 04/27/19 22:00 05/05/19 22:26 Senna - PO 1 tab HS [facility] Administration Impression 1. DAVID 2. CKD 3. hep C cirrhosis 4. UTI 5. sepsis 6. ascites 7. hypervolemic hyponatremia 8. coagulopathy 9. 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
[2019-05-06 17:29] LABS: BF WBC & OTHER NUCLEATED CELLS 139 /mm3
[2019-05-06 18:02] LABS: BODY FLUID MACROPHAGES 20 %; BODY FLUID MESOTHELIAL 70 %
[2019-05-06] MEDS ORDERED: LORazepam 1 MG TABLET PO ONE (20:35)
[2019-05-06] MEDS: SENNOSIDES 8.6MG TABLET (FP) PO SCH (21:00)
[2019-05-07 09:08] LABS: HEMATOCRIT 28.3 % (32.4-45.2); HEMOGLOBIN 9.1 GM/dL (10.7-15.3); MCH 31.2 pg (25.7-33.7); MCHC 32.2 g/dl (32.0-36.0); MEAN PLT VOLUME 8.6 fl (7.5-11.1); PLATELET COUNT 115 K/MM3 (134-434); RBC 2.92 M/mm3 (3.60-5.2); RDW 20.6 % (11.6-15.6); WHITE BLOOD COUNT 5.3 K/mm3 (4.0-10.0)
[2019-05-07 10:02] LABS: ALBUMIN 2.3 g/dl (3.4-5.0); BILIRUBIN,TOTAL 2.9 mg/dL (0.2-1); BLOOD UREA NITROGEN 64.9 mg/dL (7-18); CALCIUM 9.2 mg/dL (8.5-10.1); CREATININE 3.1 mg/dL (0.55-1.3); POTASSIUM 3.6 mmol/L (3.5-5.1); TOT PROT 6.1 g/dl (6.4-8.2)
--- NOTE | 2019-05-07 10:13 | PN ---
Progress Note (short form) - Note Progress Note: PULMONARY Not answering questions today. Vital Signs Period Temp Pulse Resp BP Sys/Bolaños Pulse Ox Last 24 Hr 97.8 F-98.2 F 92-94 18-20 120-133/67-70 98 Gen: confused, mildly tachypneic Heart: RRR, +systolic murmur Lung: decreased breath sounds at the bases Abd: softly distended, nontender Ext: no edema CBC, BMP 05/07/19 08:15 05/07/19 08:15 Active Medications Amlodipine Besylate (Norvasc -) 5 mg PO DAILY [facility] Last Admin: 05/06/19 09:45 Dose: 5 mg Apixaban (Eliquis -) 2.5 mg PO BID [facility] Last Admin: 05/03/19 21:53 Dose: 2.5 mg Calcium Acetate (Phoslo -) 667 mg PO TIDCM [facility] Last Admin: 05/06/19 17:35 Dose: 667 mg Docusate Sodium (Colace -) 100 mg PO DAILY [facility] Last Admin: 05/06/19 09:45 Dose: 100 mg Ergocalciferol (Drisdol -) 50,000 unit PO Q7D@1000 [facility] Last Admin: 05/04/19 09:23 Dose: 50,000 unit Furosemide (Lasix Injection -) 40 mg IVPUSH DAILY [facility] Last Admin: 05/06/19 09:45 Dose: 40 mg Hydrocortisone (Anusol 2.5% Hc Cream -) 1 applic TP DAILY [facility] Last Admin: 05/06/19 09:46 Dose: 1 applic Famotidine/Sodium Chloride (Pepcid 20 Mg Premixed Ivpb -) 20 mg in 50 mls @ 100 mls/hr IVPB Q48H [facility] Last Admin: 05/05/19 16:07 Dose: 100 mls/hr Dextrose (D5w -) 1,000 mls @ 42 mls/hr IV Q24H [facility] Last Admin: 05/06/19 13:54 Dose: 42 mls/hr Lactulose (Cephulac (Oral Use)) 20 gm PO BID [facility] Last Admin: 05/06/19 21:00 Dose: 20 gm Midodrine (Proamatine -) 5 mg PO TID-MID [facility] Last Admin: 05/06/19 17:35 Dose: 5 mg Ondansetron HCl (Zofran -) 4 mg PO TID PRN PRN Reason: NAUSEA AND/OR VOMITING Polyethylene Glycol (Miralax (For Daily Use) -) 17 gm PO BID [facility] Last Admin: 05/06/19 21:14 Dose: Not Given Rifaximin (Xifaxan -) 550 mg PO BID [facility] Last Admin: 05/06/19 21:00 Dose: 550 mg Senna (Senna -) 1 tab PO HS [facility] Last Admin: 05/06/19 21:00 Dose: 1 tab A/P UTI Resolved Septic Shock s/p Acute Respiratory Failure Requiring HFOT Acute Kidney Injury Lactic Acidosis Hep C Cirrhosis Ascites Thrombocytopenia/Anemia h/o DVT - completed antibiotics - increase free water replacement, appears clinically dry - continue midodrine - lactulose, rifaximin - PO as tolerated - monitor urine output, creatinine - aspiration precautions - DVT prophylaxis
[2019-05-07] MEDS: DOCUSATE SODIUM 100 MG CAPSULE (FP) PO SCH (10:15)
[2019-05-07] MEDS: MIDODRINE HCL 5 MG TABLET PO SCH ×2 (10:15→14:20)
[2019-05-07] MEDS: LACTULOSE 20 GM/30 ML UDC (FOR ORAL USE ONLY) PO SCH ×2 (10:15→22:38)
[2019-05-07] MEDS: FUROSEMIDE 40 MG/4 ML INJECTABLE VIAL IVPUSH SCH (10:15)
[2019-05-07] MEDS: HYDROCORTISONE 2.5% TOPICAL CREAM 30 GM TUBE TP SCH (10:15)
[2019-05-07] MEDS: CALCIUM ACETATE 667 MG CAPSULE (FP) PO SCH ×3 (10:15→17:43)
[2019-05-07] MEDS: RIFAXIMIN 550 MG TABLET (UD) PO SCH ×2 (10:15→22:37)
[2019-05-07] MEDS: amLODIPine BESYLATE 5 MG TABLET (FP) PO SCH (10:15)
[2019-05-07] MEDS: APIXABAN 2.5 MG TABLET PO SCH ×2 (10:15→22:37)
[2019-05-07] MEDS: POLYETHYLENE GLYCOL 3350 119 GM BTL PO SCH ×2 (10:16→22:30)
[2019-05-07] MEDS ORDERED: PT OWN MED DRAWER 7, Y5N ONE (10:44)
--- NOTE | 2019-05-07 11:44 | PN ---
Progress Note, Physician Chief Complaint: Sepsis Renal Failure Liver Cirrhosis History of Present Illness: Previous notes and events reviewed awake and alert NAD patient had paracentesis done yesterday with IR fluid sent for specimen with results pending - Current Medication List Current Medications: Active Medications Amlodipine Besylate (Norvasc -) 5 mg PO DAILY [facility] Last Admin: 05/07/19 10:15 Dose: 5 mg Apixaban (Eliquis -) 2.5 mg PO BID [facility] Last Admin: 05/07/19 10:15 Dose: 2.5 mg Calcium Acetate (Phoslo -) 667 mg PO TIDCM [facility] Last Admin: 05/07/19 10:15 Dose: 667 mg Docusate Sodium (Colace -) 100 mg PO DAILY [facility] Last Admin: 05/07/19 10:15 Dose: 100 mg Ergocalciferol (Drisdol -) 50,000 unit PO Q7D@1000 [facility] Last Admin: 05/04/19 09:23 Dose: 50,000 unit Furosemide (Lasix Injection -) 40 mg IVPUSH DAILY [facility] Last Admin: 05/07/19 10:15 Dose: 40 mg Hydrocortisone (Anusol 2.5% Hc Cream -) 1 applic TP DAILY [facility] Last Admin: 05/07/19 10:15 Dose: 1 applic Famotidine/Sodium Chloride (Pepcid 20 Mg Premixed Ivpb -) 20 mg in 50 mls @ 100 mls/hr IVPB Q48H [facility] Last Admin: 05/05/19 16:07 Dose: 100 mls/hr Dextrose (D5w -) 1,000 mls @ 42 mls/hr IV Q24H [facility] Last Admin: 05/06/19 13:54 Dose: 42 mls/hr Lactulose (Cephulac (Oral Use)) 20 gm PO BID [facility] Last Admin: 05/07/19 10:15 Dose: 20 gm Midodrine (Proamatine -) 5 mg PO TID-MID [facility] Last Admin: 05/07/19 10:15 Dose: 5 mg Ondansetron HCl (Zofran -) 4 mg PO TID PRN PRN Reason: NAUSEA AND/OR VOMITING Polyethylene Glycol (Miralax (For Daily Use) -) 17 gm PO BID [facility] Last Admin: 05/07/19 10:16 Dose: Not Given Rifaximin (Xifaxan -) 550 mg PO BID [facility] Last Admin: 05/07/19 10:15 Dose: 550 mg Senna (Senna -) 1 tab PO HS [facility] Last Admin: 05/06/19 21:00 Dose: 1 tab - Objective Vital Signs: Vital Signs Temperature 98.0 F 05/07/19 10:00 Pulse Rate 76 05/07/19 10:00 Respiratory Rate 18 05/07/19 10:00 Blood Pressure 140/80 05/07/19 10:00 O2 Sat by Pulse Oximetry (%) 98 05/07/19 09:00 Constitutional: Yes: No Distress, Calm Eyes: Yes: Conjunctiva Clear HENT: Yes: Atraumatic Cardiovascular: Yes: Regular Rate and Rhythm Respiratory: Yes: Regular, Cough, Diminished, On Nasal O2 Gastrointestinal: Yes: Normal Bowel Sounds, Soft Genitourinary: Yes: Laguerre Present Musculoskeletal: Yes: Muscle Weakness Extremities: Yes: WNL Edema: No Integumentary: Yes: Erythema Neurological: Yes: Alert, Confusion Psychiatric: Yes: Alert Labs: CBC, BMP 05/07/19 08:15 05/07/19 08:15 INR, PTT INR 1.42 (0.83-1.09) H 05/06/19 11:08 Microbiology 04/20/19 13:28 Blood - Peripheral Venous Blood Culture - Final NO GROWTH AFTER 5 DAYS INCUBATION 04/20/19 13:28 Blood - Peripheral Venous Blood Culture - Final NO GROWTH AFTER 5 DAYS INCUBATION 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 Coli Esbl Fish [employer] Problem List - Problems (1) CKD (chronic kidney disease) Assessment/Plan: -BUN/Cr 64.9/3.1 -Renal on board -monitor renal function daily Code(s): N18.9 - CHRONIC KIDNEY DISEASE, UNSPECIFIED (2) Abdominal pain Assessment/Plan: -Abdominal US done and shows liver cirrhosis with splenomegaly with significant amount of free fluid/ascites in upper abdomen and lower quadrants, thickening of gallbladder -GI on board -ABdominal US~GI recommend diagnostic paracentesis to eval fluid for cell count with diff, culture, total protein, albumin, cytology -repeat Abd US shows volume of ascites increase in comparison to US 04/20/19 -s/p paracentesis 05/06/19 Code(s): R10.9 - UNSPECIFIED ABDOMINAL PAIN (3) Altered mental state Assessment/Plan: -toxic metabolic encephalopathy due to dementia vs renal failure vs CKD -aspiration precaution -trial of dysphagia ground diet and nectar thick liquid -Ammonia 11.10 -Head CT scan shows generalized volume loss, moderate to marked ventricular dilatation mainly in the lateral and third ventricles including the temporal horns without interval change, although findings may be due to central atrophy normal pressure hydrocephalus could not be excluded Code(s): R41.82 - ALTERED MENTAL STATUS, UNSPECIFIED (4) CHF (congestive heart failure) Assessment/Plan: -daily weights -fluid restriction -strict I&Os -Furosemide -BNP 4540 Code(s): I50.9 - HEART FAILURE, UNSPECIFIED (5) 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 Assessment/Plan: -GI on board -Abdominal US shows liver cirrhosis with splenomegaly with significant amount of free fluid/ascites in upper abdomen and lower quadrants -AST 54, Alk Phos 135 -will need to have discussion with family in regards to GOC, if aggressive treatment is warranted will need transfer to liver center for mangement of underlying chronic liver disease -ABdominal US~GI recommend diagnostic paracentesis to eval fluid for cell count with diff, culture, total protein, albumin, cytology -repeat Abd US shows volume of ascites increase in comparison to US 04/20/19 -Ammonia level 11.10 -s/p paracentesis 05/06/19 -MRI with ERCP on 06/2018 show numerous varices anterior to left hepatic lobe which inturn communicates with subcutaneous varices, dilated distal SMV, splenic vein and proximal portal vein with multiple eccentric nonocclusive filling defects/thrombi~Eliquis resumed Code(s): B18.2 - CHRONIC VIRAL HEPATITIS C; K74.60 - UNSPECIFIED CIRRHOSIS OF LIVER (6) Hypertension Assessment/Plan: -Amlodipine Code(s): I10 - ESSENTIAL (PRIMARY) HYPERTENSION (7) Hypoxia Assessment/Plan: -Pulm on board -O2 via NC -keep SpO2 >90% -CXR shows mild congestive changes -bronchodilators -repeat CXR shows congestive and infiltrative changes Code(s): R09.02 - HYPOXEMIA (8) Urinary tract infection Assessment/Plan: -ID on board -no leukocytosis -afebrile -Ertapenem discontinued, will monitor off -UA shows 3+ leuks, 1+ bilirubin, 3+ blood -UC positive Code(s): N39.0 - URINARY TRACT INFECTION, SITE NOT SPECIFIED Qualifiers: Urinary tract infection type: site unspecified Hematuria presence: without hematuria Qualified Code(s): N39.0 - Urinary tract infection, site not specified (9) Sepsis Assessment/Plan: -ID consult -no leukocytosis -afebrile -Ertapenem d/c, monitor off -UA shows 3+ leuks, 1+ bilirubin, 3+ blood -UC positive -BC neg -LA 4.9~4.1~2.4~1.7 -CXR shows congestive and infiltrative changes Code(s): A41.9 - SEPSIS, UNSPECIFIED ORGANISM (10) DVT (deep venous thrombosis) Code(s): I82.409 - ACUTE EMBOLISM AND THOMBOS UNSP DEEP VN UNSP LOWER EXTREMITY (11) Hepatic encephalopathy Assessment/Plan: -Lactulose and Xifaxin Code(s): K72.90 - HEPATIC FAILURE, UNSPECIFIED WITHOUT COMA Assessment/Plan see problem list DVT ppx will being d/c planning for SNF and will have outpatient follow up for Liver Cirrhosis
[2019-05-07] MEDS: DEXTROSE 5%-WATER - 1,000 ML IV SCH (13:57)
[2019-05-07] MEDS: FAMOTIDINE 20 MG/50 ML IVPB 20 MG/50 ML MG IVPB SCH (14:21)
--- NOTE | 2019-05-07 16:22 | PN ---
Progress Note, Physician History of Present Illness: Pt seen and examined at bedside. She is awake but confused. - Current Medication List Current Medications: Active Medications Amlodipine Besylate (Norvasc -) 5 mg PO DAILY [facility] Last Admin: 05/07/19 10:15 Dose: 5 mg Apixaban (Eliquis -) 2.5 mg PO BID [facility] Last Admin: 05/07/19 10:15 Dose: 2.5 mg Calcium Acetate (Phoslo -) 667 mg PO TIDCM [facility] Last Admin: 05/07/19 11:55 Dose: 667 mg Docusate Sodium (Colace -) 100 mg PO DAILY [facility] Last Admin: 05/07/19 10:15 Dose: 100 mg Ergocalciferol (Drisdol -) 50,000 unit PO Q7D@1000 [facility] Last Admin: 05/04/19 09:23 Dose: 50,000 unit Furosemide (Lasix Injection -) 40 mg IVPUSH DAILY [facility] Last Admin: 05/07/19 10:15 Dose: 40 mg Hydrocortisone (Anusol 2.5% Hc Cream -) 1 applic TP DAILY [facility] Last Admin: 05/07/19 10:15 Dose: 1 applic Famotidine/Sodium Chloride (Pepcid 20 Mg Premixed Ivpb -) 20 mg in 50 mls @ 100 mls/hr IVPB Q48H [facility] Last Admin: 05/07/19 14:21 Dose: 100 mls/hr Dextrose (D5w -) 1,000 mls @ 42 mls/hr IV Q24H [facility] Last Admin: 05/07/19 13:57 Dose: 42 mls/hr Lactulose (Cephulac (Oral Use)) 20 gm PO BID [facility] Last Admin: 05/07/19 10:15 Dose: 20 gm Midodrine (Proamatine -) 5 mg PO TID-MID [facility] Last Admin: 05/07/19 14:20 Dose: 5 mg Ondansetron HCl (Zofran -) 4 mg PO TID PRN PRN Reason: NAUSEA AND/OR VOMITING Polyethylene Glycol (Miralax (For Daily Use) -) 17 gm PO BID [facility] Last Admin: 05/07/19 10:16 Dose: Not Given Rifaximin (Xifaxan -) 550 mg PO BID [facility] Last Admin: 05/07/19 10:15 Dose: 550 mg Senna (Senna -) 1 tab PO HS [facility] Last Admin: 05/06/19 21:00 Dose: 1 tab - Objective Vital Signs: Vital Signs Temperature 98.1 F 05/07/19 15:00 Pulse Rate 104 H 05/07/19 15:00 Respiratory Rate 18 05/07/19 15:00 Blood Pressure 134/73 05/07/19 15:00 O2 Sat by Pulse Oximetry (%) 98 05/07/19 09:00 Constitutional: Yes: Calm Eyes: Yes: Conjunctiva Clear HENT: Yes: Atraumatic Cardiovascular: Yes: S1, S2 Respiratory: Yes: CTA Bilaterally Gastrointestinal: Yes: Soft, Ascites Genitourinary: Yes: Incontinence Musculoskeletal: Yes: Muscle Weakness Edema: No Neurological: Yes: Confusion Labs: CBC, BMP 05/07/19 08:15 05/07/19 08:15 INR, PTT INR 1.42 (0.83-1.09) H 05/06/19 11:08 Assessment/Plan Current Medications Generic Name Dose Route Start Last Admin Trade Name Julieta PRN Reason Stop Dose Admin Amlodipine Besylate 5 mg 04/27/19 10:00 05/07/19 10:15 Norvasc - PO 5 mg DAILY [facility] Administration Apixaban 2.5 mg 05/02/19 10:00 05/07/19 10:15 Eliquis - PO 2.5 mg BID [facility] Administration Calcium Acetate 667 mg 04/28/19 12:00 05/07/19 11:55 Phoslo - PO 667 mg TIDCM [facility] Administration Docusate Sodium 100 mg 04/28/19 10:00 05/07/19 10:15 Colace - PO 100 mg DAILY [facility] Administration Ergocalciferol 50,000 unit 05/04/19 10:00 05/04/19 09:23 Drisdol - PO 50,000 unit Q7D@1000 [facility] Administration Furosemide 40 mg 05/01/19 10:00 05/07/19 10:15 Lasix Injection - IVPUSH 40 mg DAILY [facility] Administration Hydrocortisone 1 applic 05/02/19 10:00 05/07/19 10:15 Anusol 2.5% Hc Cream - TP 1 applic DAILY [facility] Administration Famotidine/Sodium Chloride 20 mg in 50 mls @ 100 mls/hr 04/27/19 14:45 14:21 Pepcid 20 Mg Premixed Ivpb - IVPB 100 mls/hr Q48H [facility] Administration Dextrose 1,000 mls @ 42 mls/hr 05/05/19 10:30 05/07/19 13:57 D5w - IV 42 mls/hr Q24H [facility] Administration Lactulose 20 gm 04/27/19 22:00 05/07/19 10:15 Cephulac (Oral Use) PO 20 gm BID [facility] Administration Midodrine 5 mg 05/04/19 18:07 05/07/19 14:20 Proamatine - PO 5 mg TID-MID [facility] Administration Ondansetron HCl 4 mg 04/27/19 12:33 Zofran - PO TID PRN NAUSEA AND/OR VOMITING Polyethylene Glycol 17 gm 04/27/19 22:00 05/07/19 10:16 Miralax (For Daily Use) - PO Not Given BID [facility] Rifaximin 550 mg 04/27/19 22:00 05/07/19 10:15 Xifaxan - PO 550 mg BID [facility] Administration Senna 1 tab 04/27/19 22:00 05/06/19 21:00 Senna - PO 1 tab HS [facility] Administration Laboratory Tests 04/22/19 05:55 Serum Cryoglobulins Pending Impression 1. DAVID 2. CKD 3. hep C cirrhosis 4. UTI 5. sepsis 6. ascites 7. hypervolemic hyponatremia 8. coagulopathy 9. hypernatremia PLAN - cont d5w - bp is improved - can hold off midodrine - hold norvasc as well and monitor - renal function is improving
[2019-05-07] MEDS ORDERED: MIDODRINE HCL 5 MG TABLET PO PRN (16:23)
[2019-05-07] MEDS ORDERED: DEXTROSE 5%-WATER - 1,000 ML IV SCH (16:24)
--- NOTE | 2019-05-07 18:26 | PN.GI ---
GI Progress Note Subjective: coverge for Dr Holman s/p paracentesis, abdominal pain and distention resolved - Objective Vital Signs: Vital Signs Temperature 98.1 F 05/07/19 15:00 Pulse Rate 104 H 05/07/19 15:00 Respiratory Rate 18 05/07/19 15:00 Blood Pressure 134/73 05/07/19 15:00 O2 Sat by Pulse Oximetry (%) 98 05/07/19 09:00 Constitutional: Well Nourished Eyes: Yes: Conjunctiva Clear HENT: Yes: Atraumatic Cardiovascular: Yes: Regular Rate and Rhythm Respiratory: Yes: CTA Bilaterally ...Palpate: Yes: Soft. No: Firm/Rigid, Guarding, Hepatomegaly, Mass, Pulsatile Mass, Splenomegaly Labs: CBC, BMP 05/07/19 08:15 05/07/19 08:15 INR, PTT INR 1.42 (0.83-1.09) H 05/06/19 11:08 Problem List - Problems (1) Liver cirrhosis Assessment/Plan: associated with ascitis and DAVID R> diuretics as per renal continue supportive care Code(s): K74.60 - UNSPECIFIED CIRRHOSIS OF LIVER Qualifiers: Ascites presence: with ascites
[2019-05-07] MEDS: SENNOSIDES 8.6MG TABLET (FP) PO SCH (22:37)
[2019-05-08] MEDS ORDERED: PT OWN MED DRAWER 7, Y5N ONE (08:48)
--- NOTE | 2019-05-08 08:54 | PN ---
Progress Note, Physician - Current Medication List Current Medications: Active Medications Apixaban (Eliquis -) 2.5 mg PO BID [facility] Last Admin: 05/07/19 22:37 Dose: 2.5 mg Calcium Acetate (Phoslo -) 667 mg PO TIDCM [facility] Last Admin: 05/07/19 17:43 Dose: 667 mg Docusate Sodium (Colace -) 100 mg PO DAILY [facility] Last Admin: 05/07/19 10:15 Dose: 100 mg Ergocalciferol (Drisdol -) 50,000 unit PO Q7D@1000 [facility] Last Admin: 05/04/19 09:23 Dose: 50,000 unit Famotidine (Pepcid -) 20 mg PO BID [facility] Hydrocortisone (Anusol 2.5% Hc Cream -) 1 applic TP DAILY [facility] Last Admin: 05/07/19 10:15 Dose: 1 applic Lactulose (Cephulac (Oral Use)) 20 gm PO BID [facility] Last Admin: 05/07/19 22:38 Dose: 20 gm Midodrine (Proamatine -) 5 mg PO BID PRN PRN Reason: MAP<65mm Hg OR SBP <90 Ondansetron HCl (Zofran -) 4 mg PO TID PRN PRN Reason: NAUSEA AND/OR VOMITING Polyethylene Glycol (Miralax (For Daily Use) -) 17 gm PO BID [facility] Last Admin: 05/07/19 22:30 Dose: Not Given Rifaximin (Xifaxan -) 550 mg PO BID [facility] Last Admin: 05/07/19 22:37 Dose: 550 mg Senna (Senna -) 1 tab PO HS [facility] Last Admin: 05/07/19 22:37 Dose: 1 tab Torsemide (Demadex -) 20 mg PO DAILY [facility] - Objective Vital Signs: Vital Signs Temperature 98.2 F 05/08/19 06:40 Pulse Rate 99 H 05/08/19 06:40 Respiratory Rate 20 05/08/19 06:40 Blood Pressure 132/67 05/08/19 06:40 O2 Sat by Pulse Oximetry (%) 99 05/07/19 21:00 Cardiovascular: Yes: S1, S2 Respiratory: Yes: Regular, CTA Bilaterally Gastrointestinal: Yes: Normal Bowel Sounds, Soft Neurological: Yes: Alert, Confusion Labs: CBC, BMP 05/07/19 08:15 05/07/19 08:15 INR, PTT INR 1.42 (0.83-1.09) H 05/06/19 11:08 Assessment/Plan - Problems (1) CKD (chronic kidney disease) Assessment/Plan: -BUN/Cr 64.9/3.1 -Renal on board -dc iv DIURETICS -po Diuretic demadex 20 start monday -dc ivf -monitor renal function daily Code(s): N18.9 - CHRONIC KIDNEY DISEASE, UNSPECIFIED (2) Abdominal pain Assessment/Plan: -Abdominal US done and shows liver cirrhosis with splenomegaly with significant amount of free fluid/ascites in upper abdomen and lower quadrants, thickening of gallbladder -GI on board -ABdominal US~GI recommend diagnostic paracentesis to eval fluid for cell count with diff, culture, total protein, albumin, cytology -repeat Abd US shows volume of ascites increase in comparison to US 04/20/19 -s/p paracentesis 05/06/19 Code(s): R10.9 - UNSPECIFIED ABDOMINAL PAIN (3) Altered mental state Assessment/Plan: -toxic metabolic encephalopathy due to dementia vs renal failure vs CKD -aspiration precaution -trial of dysphagia ground diet and nectar thick liquid -Ammonia 11.10 -Head CT scan shows generalized volume loss, moderate to marked ventricular dilatation mainly in the lateral and third ventricles including the temporal horns without interval change, although findings may be due to central atrophy normal pressure hydrocephalus could not be excluded Code(s): R41.82 - ALTERED MENTAL STATUS, UNSPECIFIED (4) CHF (congestive heart failure) Assessment/Plan: -daily weights -fluid restriction -strict I&Os -Furosemide -BNP 4540 Code(s): I50.9 - HEART FAILURE, UNSPECIFIED (5) 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 Assessment/Plan: -GI on board -Abdominal US shows liver cirrhosis with splenomegaly with significant amount of free fluid/ascites in upper abdomen and lower quadrants -AST 54, Alk Phos 135 -will need to have discussion with family in regards to GOC, if aggressive treatment is warranted will need transfer to liver center for mangement of underlying chronic liver disease -ABdominal US~GI recommend diagnostic paracentesis to eval fluid for cell count with diff, culture, total protein, albumin, cytology -repeat Abd US shows volume of ascites increase in comparison to US 04/20/19 -Ammonia level 11.10 -s/p paracentesis 05/06/19 -MRI with ERCP on 06/2018 show numerous varices anterior to left hepatic lobe which inturn communicates with subcutaneous varices, dilated distal SMV, splenic vein and proximal portal vein with multiple eccentric nonocclusive filling defects/thrombi~Eliquis resumed Code(s): B18.2 - CHRONIC VIRAL HEPATITIS C; K74.60 - UNSPECIFIED CIRRHOSIS OF LIVER (6) Hypertension Assessment/Plan: -Amlodipine Code(s): I10 - ESSENTIAL (PRIMARY) HYPERTENSION (7) Hypoxia Assessment/Plan: -Pulm on board -O2 via NC -keep SpO2 >90% -CXR shows mild congestive changes -bronchodilators -repeat CXR shows congestive and infiltrative changes Code(s): R09.02 - HYPOXEMIA (8) Urinary tract infection Assessment/Plan: -ID on board -no leukocytosis -afebrile -Ertapenem discontinued, will monitor off -UA shows 3+ leuks, 1+ bilirubin, 3+ blood -UC positive Code(s): N39.0 - URINARY TRACT INFECTION, SITE NOT SPECIFIED Qualifiers: Urinary tract infection type: site unspecified Hematuria presence: without hematuria Qualified Code(s): N39.0 - Urinary tract infection, site not specified (9) Sepsis Assessment/Plan: -ID consult -no leukocytosis -afebrile -Ertapenem d/c, monitor off -UA shows 3+ leuks, 1+ bilirubin, 3+ blood -UC positive -BC neg -LA 4.9~4.1~2.4~1.7 -CXR shows congestive and infiltrative changes Code(s): A41.9 - SEPSIS, UNSPECIFIED ORGANISM (10) DVT (deep venous thrombosis) Code(s): I82.409 - ACUTE EMBOLISM AND THOMBOS UNSP DEEP VN UNSP LOWER EXTREMITY (11) Hepatic encephalopathy Assessment/Plan: -Lactulose and Xifaxin Code(s): K72.90 - HEPATIC FAILURE, UNSPECIFIED WITHOUT COMA MONITOR OFF DIURETICS AND RESTRAINTS-IF STABLE DC SNF
[2019-05-08] MEDS: CALCIUM ACETATE 667 MG CAPSULE (FP) PO SCH ×3 (08:57→17:45)
[2019-05-08] MEDS: POLYETHYLENE GLYCOL 3350 119 GM BTL PO SCH ×2 (08:59→21:18)
[2019-05-08] MEDS: HYDROCORTISONE 2.5% TOPICAL CREAM 30 GM TUBE TP SCH (09:00)
[2019-05-08] MEDS: DOCUSATE SODIUM 100 MG CAPSULE (FP) PO SCH (09:06)
[2019-05-08] MEDS: RIFAXIMIN 550 MG TABLET (UD) PO SCH ×2 (09:06→21:18)
[2019-05-08 09:09] LABS: HEMATOCRIT 27.1 % (32.4-45.2); HEMOGLOBIN 8.9 GM/dL (10.7-15.3); MCH 31.9 pg (25.7-33.7); MCHC 32.9 g/dl (32.0-36.0); MEAN CELL VOLUME 96.9 fl (80-96); PLATELET COUNT 100 K/MM3 (134-434); WHITE BLOOD COUNT 6.4 K/mm3 (4.0-10.0)
[2019-05-08] MEDS: LACTULOSE 20 GM/30 ML UDC (FOR ORAL USE ONLY) PO SCH ×2 (09:10→21:18)
[2019-05-08] MEDS: FAMOTIDINE 20 MG TABLET PO SCH ×2 (09:11→21:18)
[2019-05-08] MEDS: APIXABAN 2.5 MG TABLET PO SCH ×2 (09:11→21:18)
[2019-05-08 09:39] LABS: ALBUMIN 2.2 g/dl (3.4-5.0); BILIRUBIN,TOTAL 2.5 mg/dL (0.2-1); BLOOD UREA NITROGEN 58.2 mg/dL (7-18); CALCIUM 8.7 mg/dL (8.5-10.1); POTASSIUM 3.2 mmol/L (3.5-5.1)
[2019-05-08] MEDS ORDERED: TORSEMIDE 20 MG TABLET (FP) PO SCH (10:00)
--- NOTE | 2019-05-08 10:32 | PN ---
Progress Note, EXPERIMENTAL WORKER - Note Progress Note: Selected Entries 05/07/19 05/07/19 05/07/19 06:00 10:00 15:00 Breakfast 25% Supper Temperature 97.8 F 98.0 F 98.1 F 05/07/19 05/07/19 05/07/19 18:15 19:19 22:00 Breakfast Supper 50% Temperature 97.7 F 100.0 F H 05/08/19 05/08/19 05/08/19 02:00 06:40 09:15 Breakfast Supper Temperature 99.2 F 98.2 F 97.8 F Laboratory Tests 05/08/19 07:50 WBC 6.4 Tolerating diet.
--- NOTE | 2019-05-08 12:59 | PN ---
Progress Note, Physician History of Present Illness: PULMONARY ALERT,CONFUSED,COMFORTABLE,-RESP DISTRESS - Current Medication List Current Medications: Active Medications Apixaban (Eliquis -) 2.5 mg PO BID [facility] Last Admin: 05/08/19 09:11 Dose: 2.5 mg Calcium Acetate (Phoslo -) 667 mg PO TIDCM [facility] Last Admin: 05/08/19 12:30 Dose: 667 mg Docusate Sodium (Colace -) 100 mg PO DAILY [facility] Last Admin: 05/08/19 09:06 Dose: Not Given Ergocalciferol (Drisdol -) 50,000 unit PO Q7D@1000 [facility] Last Admin: 05/04/19 09:23 Dose: 50,000 unit Famotidine (Pepcid -) 20 mg PO BID [facility] Last Admin: 05/08/19 09:11 Dose: 20 mg Hydrocortisone (Anusol 2.5% Hc Cream -) 1 applic TP DAILY [facility] Last Admin: 05/08/19 09:00 Dose: 1 applic Lactulose (Cephulac (Oral Use)) 20 gm PO BID [facility] Last Admin: 05/08/19 09:10 Dose: 20 gm Midodrine (Proamatine -) 5 mg PO BID PRN PRN Reason: MAP<65mm Hg OR SBP <90 Ondansetron HCl (Zofran -) 4 mg PO TID PRN PRN Reason: NAUSEA AND/OR VOMITING Polyethylene Glycol (Miralax (For Daily Use) -) 17 gm PO BID [facility] Last Admin: 05/08/19 08:59 Dose: Not Given Rifaximin (Xifaxan -) 550 mg PO BID [facility] Last Admin: 05/08/19 09:06 Dose: 550 mg Senna (Senna -) 1 tab PO HS [facility] Last Admin: 05/07/19 22:37 Dose: 1 tab Torsemide (Demadex -) 20 mg PO DAILY [facility] - Objective Vital Signs: Vital Signs Temperature 97.8 F 05/08/19 09:15 Pulse Rate 94 H 05/08/19 09:15 Respiratory Rate 19 05/08/19 09:15 Blood Pressure 134/74 05/08/19 09:15 O2 Sat by Pulse Oximetry (%) 99 05/08/19 09:00 Constitutional: Yes: Well Nourished, Calm Eyes: Yes: WNL HENT: Yes: WNL Neck: Yes: WNL Cardiovascular: Yes: Regular Rate and Rhythm, S1, S2 Respiratory: Yes: Diminished Gastrointestinal: Yes: Normal Bowel Sounds, Soft Extremities: Yes: WNL Edema: No Labs: CBC, BMP 05/08/19 07:50 05/08/19 07:50 INR, PTT INR 1.42 (0.83-1.09) H 05/06/19 11:08 Problem List - Problems (1) Acute renal failure Code(s): N17.9 - ACUTE KIDNEY FAILURE, UNSPECIFIED (2) CKD (chronic kidney disease) Code(s): N18.9 - CHRONIC KIDNEY DISEASE, UNSPECIFIED (3) Coagulopathy Code(s): D68.9 - COAGULATION DEFECT, UNSPECIFIED (4) DVT (deep venous thrombosis) Code(s): I82.409 - ACUTE EMBOLISM AND THOMBOS UNSP DEEP VN UNSP LOWER EXTREMITY (5) Liver cirrhosis Code(s): K74.60 - UNSPECIFIED CIRRHOSIS OF LIVER Qualifiers: Ascites presence: with ascites (6) Respiratory distress Code(s): R06.03 - ACUTE RESPIRATORY DISTRESS (7) Hepatic encephalopathy Code(s): K72.90 - HEPATIC FAILURE, UNSPECIFIED WITHOUT COMA (8) Hypomagnesemia Code(s): E83.42 - HYPOMAGNESEMIA (9) Lactic acidosis Code(s): E87.2 - ACIDOSIS Assessment/Plan A/P UTI Resolved Septic Shock Acute Respiratory Failure Requiring HFOT resolved Acute Kidney Injury Lactic Acidosis Hep C Cirrhosis Ascites Thrombocytopenia/Anemia h/o DVT - continue midodrine - lactulose, rifaximin - fluids - PO as tolerated - monitor urine output, creatinine - aspiration precautions - DVT prophylaxis DR LOZA
--- NOTE | 2019-05-08 14:14 | CONSULT ---
Consultation: REQUESTING PROVIDER: HEME/ONC Service CONSULT REQUEST: We have been asked to medically evaluate this patient for thrombocytopenia. HISTORY OF PRESENT ILLNESS: Patient is a 68 y/o female with past medical history of Dementia, CHronic UTI, HTN, Cirrhosis, Hepatitis C, CHF. Sent to ED by PMD for worsening renal and liver function. Pt not answering questions appropriately. History taken from records. REVIEW OF SYSTEMS: Unable to obtain PHYSICAL EXAMINATION Vital Signs - 24 hr 05/07/19 05/07/19 05/07/19 15:00 19:19 21:00 Temperature 98.1 F 97.7 F Pulse Rate 104 H 110 H Respiratory 18 20 Rate Blood Pressure 134/73 159/80 O2 Sat by Pulse 99 Oximetry (%) 05/07/19 05/08/19 05/08/19 22:00 02:00 06:40 Temperature 100.0 F H 99.2 F 98.2 F Pulse Rate 110 H 104 H 99 H Respiratory 20 20 20 Rate Blood Pressure 130/64 140/60 132/67 O2 Sat by Pulse Oximetry (%) 05/08/19 05/08/19 09:00 09:15 Temperature 97.8 F Pulse Rate 94 H Respiratory 19 19 Rate Blood Pressure 134/74 O2 Sat by Pulse 99 Oximetry (%) Gen: Awake, NAD, unkempt HEENT: NCAT, Adentulous Neck: no jvd, no bruits Cardio: rrr, norm s1s2, no mrg Pulm: cta b/l Abd: soft, nontender, nondistended, no guarding Ext: no edema Skin: multiple echymoses on extremities Laboratory Results - last 24 hr 05/08/19 05/08/19 07:50 07:50 WBC 6.4 RBC 2.80 L Hgb 8.9 L Hct 27.1 L MCV 96.9 H MCH 31.9 MCHC 32.9 RDW 20.0 H Plt Count 100 L MPV 9.0 Sodium 152 H Potassium 3.2 L Chloride 122 H Carbon Dioxide 24 Anion Gap 6 L BUN 58.2 H Creatinine 3.0 H Est GFR (CKD-EPI)AfAm 17.76 Est GFR (CKD-EPI)NonAf 15.32 Random Glucose 94 Calcium 8.7 Total Bilirubin 2.5 H AST 113 H ALT 34 Alkaline Phosphatase 138 H Total Protein 6.0 L Albumin 2.2 L Active Medications Generic Name Dose Route Start Last Admin Trade Name Freq PRN Reason Stop Dose Admin Apixaban 2.5 mg 05/02/19 10:00 05/08/19 09:11 Eliquis - PO 2.5 mg BID RADHA Administration Calcium Acetate 667 mg 04/28/19 12:00 05/08/19 12:30 Phoslo - PO 667 mg TIDCM RADHA Administration Docusate Sodium 100 mg 04/28/19 10:00 05/08/19 09:06 Colace - PO Not Given DAILY RADHA Ergocalciferol 50,000 unit 05/04/19 10:00 05/04/19 09:23 Drisdol - PO 50,000 unit Q7D@1000 RADHA Administration Famotidine 20 mg 05/08/19 10:00 05/08/19 09:11 Pepcid - PO 20 mg BID RADHA Administration Hydrocortisone 1 applic 05/02/19 10:00 05/08/19 09:00 Anusol 2.5% Hc Cream - TP 1 applic DAILY RADHA Administration Lactulose 20 gm 04/27/19 22:00 05/08/19 09:10 Cephulac (Oral Use) PO 20 gm BID RADHA Administration Midodrine 5 mg 05/07/19 16:23 Proamatine - PO BID PRN MAP<65mm Hg OR SBP <90 Ondansetron HCl 4 mg 04/27/19 12:33 Zofran - PO TID PRN NAUSEA AND/OR VOMITING Polyethylene Glycol 17 gm 04/27/19 22:00 05/08/19 08:59 Miralax (For Daily Use) - PO Not Given BID RADHA Rifaximin 550 mg 04/27/19 22:00 05/08/19 09:06 Xifaxan - PO 550 mg BID RADHA Administration Senna 1 tab 04/27/19 22:00 05/07/19 22:37 Senna - PO 1 tab HS RADHA Administration Torsemide 20 mg 05/10/19 10:00 Demadex - PO DAILY RADHA ASSESSMENT/PLAN: Patient is a 68 y/o female with past medical history of Dementia, CHronic UTI, HTN, Cirrhosis, Hepatitis C, CHF. Pt was admitted to ICU with Sepsis and is now on 5S. Heme/Onc was called because of thrombocytopenia. Thrombocytopenia -chronic problem. Review of prior lab work shows plts in the 90s and low 100s since 2014 -known liver dysfunction is the most likely cause -elevated INR in the absence of Vit K antagonist (though pt on eliquis), accompanied by decreased albumin suggestive of poor liver function -pt also has been septic, which may contribute to decreased platelet count in the acute setting -rec treatment of infection and liver dz as well as avoidance of drugs which suppress plt/liver function and production Normocytic anemia -ongoing for ~3weeks -likely 2/2 BM suppression in acute illness vs hypersplenism and chronic disease -FOBT neg on multiple occasions -no obvious source of bleed -B12, Folate normal, Fe normal -albumin/globulin ratio normal -Immunology unremarkable -C3C4 only mildly depressed on 04/24 when pt was on pressors in ICU Dispo: We will continue to follow the patient. Thank you for this consultative opportunity. Visit type - Emergency Visit Emergency Visit: No - New Patient This patient is new to me today: Yes Date on this admission: 05/09/19 - Critical Care Critical Care patient: No ATTENDING PHYSICIAN STATEMENT I saw and evaluated the patient. I reviewed the resident's note and discussed the case with the resident. I agree with the resident's findings and plan as documented. SUBJECTIVE: OBJECTIVE: ASSESSMENT AND PLAN:
[2019-05-08 16:07] LABS: BODY FLUID ALBUMIN 0.5 g/dL (Not Estab.)
[2019-05-08] MEDS ORDERED: POTASSIUM CHLORIDE TABS 20 MEQ TABLET.ER (FP) PO ONE (18:57)
--- NOTE | 2019-05-08 19:00 | PN ---
Progress Note, Physician History of Present Illness: Pt seen and examined at bedside. She remains confused. She denies shortness of breath. - Current Medication List Current Medications: Active Medications Apixaban (Eliquis -) 2.5 mg PO BID [facility] Last Admin: 05/08/19 09:11 Dose: 2.5 mg Calcium Acetate (Phoslo -) 667 mg PO TIDCM [facility] Last Admin: 05/08/19 17:45 Dose: 667 mg Docusate Sodium (Colace -) 100 mg PO DAILY [facility] Last Admin: 05/08/19 09:06 Dose: Not Given Ergocalciferol (Drisdol -) 50,000 unit PO Q7D@1000 [facility] Last Admin: 05/04/19 09:23 Dose: 50,000 unit Famotidine (Pepcid -) 20 mg PO BID [facility] Last Admin: 05/08/19 09:11 Dose: 20 mg Hydrocortisone (Anusol 2.5% Hc Cream -) 1 applic TP DAILY [facility] Last Admin: 05/08/19 09:00 Dose: 1 applic Lactulose (Cephulac (Oral Use)) 20 gm PO BID [facility] Last Admin: 05/08/19 09:10 Dose: 20 gm Midodrine (Proamatine -) 5 mg PO BID PRN PRN Reason: MAP<65mm Hg OR SBP <90 Ondansetron HCl (Zofran -) 4 mg PO TID PRN PRN Reason: NAUSEA AND/OR VOMITING Polyethylene Glycol (Miralax (For Daily Use) -) 17 gm PO BID [facility] Last Admin: 05/08/19 08:59 Dose: Not Given Rifaximin (Xifaxan -) 550 mg PO BID [facility] Last Admin: 05/08/19 09:06 Dose: 550 mg Senna (Senna -) 1 tab PO HS [facility] Last Admin: 05/07/19 22:37 Dose: 1 tab Torsemide (Demadex -) 20 mg PO DAILY [facility] - Objective Vital Signs: Vital Signs Temperature 98.9 F 05/08/19 15:00 Pulse Rate 101 H 05/08/19 15:00 Respiratory Rate 20 05/08/19 15:00 Blood Pressure 125/67 05/08/19 15:00 O2 Sat by Pulse Oximetry (%) 99 05/08/19 09:00 Constitutional: Yes: Calm Eyes: Yes: Conjunctiva Clear HENT: Yes: Atraumatic Cardiovascular: Yes: S1, S2 Respiratory: Yes: CTA Bilaterally Gastrointestinal: Yes: Normal Bowel Sounds, Soft, Ascites Genitourinary: Yes: Incontinence Musculoskeletal: Yes: Muscle Weakness Edema: No Integumentary: Yes: Skin Tear Neurological: Yes: Confusion Labs: CBC, BMP 05/08/19 07:50 05/08/19 07:50 INR, PTT INR 1.42 (0.83-1.09) H 05/06/19 11:08 Assessment/Plan Current Medications Generic Name Dose Route Start Last Admin Trade Name Freq PRN Reason Stop Dose Admin Apixaban 2.5 mg 05/02/19 10:00 05/08/19 09:11 Eliquis - PO 2.5 mg BID RADHA Administration Calcium Acetate 667 mg 04/28/19 12:00 05/08/19 17:45 Phoslo - PO 667 mg TIDCM RADHA Administration Docusate Sodium 100 mg 04/28/19 10:00 05/08/19 09:06 Colace - PO Not Given DAILY RADHA Ergocalciferol 50,000 unit 05/04/19 10:00 05/04/19 09:23 Drisdol - PO 50,000 unit Q7D@1000 RADHA Administration Famotidine 20 mg 05/08/19 10:00 05/08/19 09:11 Pepcid - PO 20 mg BID RADHA Administration Hydrocortisone 1 applic 05/02/19 10:00 05/08/19 09:00 Anusol 2.5% Hc Cream - TP 1 applic DAILY RADHA Administration Lactulose 20 gm 04/27/19 22:00 05/08/19 09:10 Cephulac (Oral Use) PO 20 gm BID RADHA Administration Midodrine 5 mg 05/07/19 16:23 Proamatine - PO BID PRN MAP<65mm Hg OR SBP <90 Ondansetron HCl 4 mg 04/27/19 12:33 Zofran - PO TID PRN NAUSEA AND/OR VOMITING Polyethylene Glycol 17 gm 04/27/19 22:00 05/08/19 08:59 Miralax (For Daily Use) - PO Not Given BID RADHA Potassium Chloride 40 meq 05/08/19 18:57 K-Dur - PO 05/08/19 18:58 ONCE ONE Rifaximin 550 mg 04/27/19 22:00 05/08/19 09:06 Xifaxan - PO 550 mg BID RADHA Administration Senna 1 tab 04/27/19 22:00 05/07/19 22:37 Senna - PO 1 tab HS RADHA Administration Torsemide 20 mg 05/10/19 10:00 Demadex - PO DAILY RADHA Impression 1. DAVID 2. CKD 3. hep C cirrhosis 4. UTI 5. sepsis 6. ascites 7. hypervolemic hyponatremia 8. coagulopathy 9. hypernatremia PLAN - bp stable - encourage free water intake as sodium is elevated - replace potassium - check phos level - renal function is improving
--- NOTE | 2019-05-08 19:34 | PN ---
Teaching Attending Note Name of Resident: Alejandro Yadav ATTENDING PHYSICIAN STATEMENT I saw and evaluated the patient. I reviewed the resident's note and discussed the case with the resident. I agree with the resident's findings and plan as documented. SUBJECTIVE: Patient seen and examined Unable to elicit adequate history from patient Presented with sepsis, anemia, thrombocytopenia and renal failure. History of cirrhosis, hepatitis,c untreated. Last Vital Signs Temp Pulse Resp BP Pulse Ox 98.5 F 91 H 20 129/57 L 99 05/08/19 18:00 05/08/19 18:00 05/08/19 18:00 05/08/19 18:00 05/08/19 09:00 HEENT: PUSHPA, EOM Intact Oropharynx: No thrush, No mucositis Neck: Supple Nodes: Without adenopathy Breasts: Without masses Cor: RSR, systolic murmur Abd: Soft, Normal bowel sounds, RUQ fullness Ext:No significant edema Skin: No rashes, Integument intact numerous ecchymoses CBC, BMP 05/08/19 07:50 05/08/19 07:50 Current Medications Generic Name Dose Route Start Last Admin Trade Name Freq PRN Reason Stop Dose Admin Apixaban 2.5 mg 05/02/19 10:00 05/08/19 09:11 Eliquis - PO 2.5 mg BID RADHA Administration Docusate Sodium 100 mg 04/28/19 10:00 05/08/19 09:06 Colace - PO Not Given DAILY RADHA Ergocalciferol 50,000 unit 05/04/19 10:00 05/04/19 09:23 Drisdol - PO 50,000 unit Q7D@1000 RADHA Administration Famotidine 20 mg 05/08/19 10:00 05/08/19 09:11 Pepcid - PO 20 mg BID RADHA Administration Hydrocortisone 1 applic 05/02/19 10:00 05/08/19 09:00 Anusol 2.5% Hc Cream - TP 1 applic DAILY RADHA Administration Lactulose 20 gm 04/27/19 22:00 05/08/19 09:10 Cephulac (Oral Use) PO 20 gm BID RADHA Administration Ondansetron HCl 4 mg 04/27/19 12:33 Zofran - PO TID PRN NAUSEA AND/OR VOMITING Polyethylene Glycol 17 gm 04/27/19 22:00 05/08/19 08:59 Miralax (For Daily Use) - PO Not Given BID RADHA Rifaximin 550 mg 04/27/19 22:00 05/08/19 09:06 Xifaxan - PO 550 mg BID RADHA Administration Senna 1 tab 04/27/19 22:00 05/07/19 22:37 Senna - PO 1 tab HS RADHA Administration Torsemide 20 mg 05/10/19 10:00 Demadex - PO DAILY RADHA OBJECTIVE: Impression: Thrombocytopenia secondary to liver disease, portal hypertension and hypersplenism Anemia -- Fe++ 83, TIBC-134 , Ferritin 346 Picture compatible with chronic disease anemia (Cirrhosis, renal failure, recent sepsis) For monitoring ASSESSMENT AND PLAN:
--- NOTE | 2019-05-08 19:56 | PN ---
Progress Note (short form) - Note Progress Note: Pt seen/examined at bedside, pts present. Pt feeling better overall, still confused at times. Denies abdominal pain, nausea/vomiting. Moving bowels. On examination: Appears comfortable, awake/alert, not oriented to time Abd soft, nt, nd No LE edema Labs reviewed. Assessment/plan: 68 yo female with HCV/cirrhosis, dementia presenting with lethargy. Paracentesis on 05/06 with no evidence of SBP. -Continue to closely monitor and correct electrolytes -Follow up renal recommendations -Follow up cultures -Monitor BMs -Titrate lactulose to 2-3 loose bms
[2019-05-08] MEDS: SENNOSIDES 8.6MG TABLET (FP) PO SCH (21:18)
[2019-05-09 06:54] VITALS: TEMP 97.7
[2019-05-09] MEDS ORDERED: PT OWN MED DRAWER 7, Y5N ONE (08:51)
[2019-05-09 09:26] LABS: EOS % 5.5 % (0-4.5); HEMATOCRIT 28.3 % (32.4-45.2); HEMOGLOBIN 9.3 GM/dL (10.7-15.3); LYMPH % 16.7 % (8-40); MCH 31.7 pg (25.7-33.7); MCHC 32.9 g/dl (32.0-36.0); MEAN CELL VOLUME 96.5 fl (80-96); MEAN PLT VOLUME 8.7 fl (7.5-11.1); MONO % 9.4 % (3.8-10.2); NEUT % 67.4 % (42.8-82.8); PLATELET COUNT 98 K/MM3 (134-434); RBC 2.93 M/mm3 (3.60-5.2); WHITE BLOOD COUNT 6.3 K/mm3 (4.0-10.0)
[2019-05-09] MEDS: LACTULOSE 20 GM/30 ML UDC (FOR ORAL USE ONLY) PO SCH (09:46)
[2019-05-09] MEDS: APIXABAN 2.5 MG TABLET PO SCH (09:46)
[2019-05-09] MEDS: RIFAXIMIN 550 MG TABLET (UD) PO SCH (09:46)
[2019-05-09] MEDS: FAMOTIDINE 20 MG TABLET PO SCH (09:46)
[2019-05-09] MEDS: DOCUSATE SODIUM 100 MG CAPSULE (FP) PO SCH (09:47)
[2019-05-09] MEDS: POLYETHYLENE GLYCOL 3350 119 GM BTL PO SCH (09:47)
[2019-05-09] MEDS: HYDROCORTISONE 2.5% TOPICAL CREAM 30 GM TUBE TP SCH (09:51)
[2019-05-09 09:54] VITALS: BP 118/64; PULSE 98
[2019-05-09 10:11] LABS: ALBUMIN 2.3 g/dl (3.4-5.0); BILIRUBIN,TOTAL 2.5 mg/dL (0.2-1); BLOOD UREA NITROGEN 58.5 mg/dL (7-18); CALCIUM 8.8 mg/dL (8.5-10.1); CREATININE 2.9 mg/dL (0.55-1.3); MAGNESIUM 2.2 mg/dL (1.8-2.4); PHOSPHOROUS 3.3 mg/dL (2.5-4.9); POTASSIUM 3.7 mmol/L (3.5-5.1); TOT PROT 6.3 g/dl (6.4-8.2)
--- NOTE | 2019-05-09 11:56 | PN ---
Progress Note (short form) - Note Progress Note: PULMONARY No fevers recorded. Remains confused. Vital Signs Period Temp Pulse Resp BP Sys/Bolaños Pulse Ox Last 24 Hr 97.7 F-98.9 F 91-102 19-20 117-129/52-69 99 Gen: confused, mildly tachypneic Heart: RRR, +systolic murmur Lung: decreased breath sounds at the bases Abd: softly distended, nontender Ext: no edema CBC, BMP 05/09/19 09:00 05/09/19 06:00 Active Medications Apixaban (Eliquis -) 2.5 mg PO BID [facility] Last Admin: 05/09/19 09:46 Dose: 2.5 mg Docusate Sodium (Colace -) 100 mg PO DAILY [facility] Last Admin: 05/09/19 09:47 Dose: Not Given Ergocalciferol (Drisdol -) 50,000 unit PO Q7D@1000 [facility] Last Admin: 05/04/19 09:23 Dose: 50,000 unit Famotidine (Pepcid -) 20 mg PO BID [facility] Last Admin: 05/09/19 09:46 Dose: 20 mg Hydrocortisone (Anusol 2.5% Hc Cream -) 1 applic TP DAILY [facility] Last Admin: 05/09/19 09:51 Dose: 1 applic Lactulose (Cephulac (Oral Use)) 20 gm PO BID [facility] Last Admin: 05/09/19 09:46 Dose: 20 gm Ondansetron HCl (Zofran -) 4 mg PO TID PRN PRN Reason: NAUSEA AND/OR VOMITING Polyethylene Glycol (Miralax (For Daily Use) -) 17 gm PO BID [facility] Last Admin: 05/09/19 09:47 Dose: Not Given Rifaximin (Xifaxan -) 550 mg PO BID [facility] Last Admin: 05/09/19 09:46 Dose: 550 mg Senna (Senna -) 1 tab PO HS [facility] Last Admin: 05/08/19 21:18 Dose: 1 tab Torsemide (Demadex -) 20 mg PO DAILY [facility] A/P UTI Resolved Septic Shock s/p Acute Respiratory Failure Requiring HFOT Acute Kidney Injury Lactic Acidosis Hep C Cirrhosis Ascites Thrombocytopenia/Anemia h/o DVT - completed antibiotics - increase free water replacement - continue midodrine - lactulose, rifaximin - PO as tolerated - monitor urine output, creatinine - aspiration precautions - DVT prophylaxis
--- NOTE | 2019-05-09 13:53 | DS ---
Physical Examination Vital Signs: Vital Signs Temperature 97.7 F 05/09/19 09:52 Pulse Rate 98 H 05/09/19 09:52 Respiratory Rate 19 05/09/19 09:52 Blood Pressure 118/64 05/09/19 09:52 O2 Sat by Pulse Oximetry (%) 99 05/08/19 21:00 Constitutional: Yes: Calm, Thin Cardiovascular: Yes: Regular Rate and Rhythm, S1, S2 Respiratory: Yes: Diminished Gastrointestinal: Yes: Normal Bowel Sounds, Soft, Ascites Edema: No Labs: CBC, BMP 05/09/19 09:00 05/09/19 06:00 Discharge Summary Problems reviewed: Yes Reason For Visit: URINARY TRACT INFECTION, HYPOXEMIA, HEPATIC CIRRHO Current Active Problems Acute renal failure (Acute) CKD (chronic kidney disease) (Acute) Coagulopathy (Acute) DVT (deep venous thrombosis) (Acute) Hypocomplementemia (Acute) Hyponatremia (Acute) Hypotension (Acute) Liver cirrhosis (Acute) Respiratory distress (Acute) Sepsis (Acute) Hospital Course: Patient is a 68 y/o female with past medical history of Dementia, CHronic UTI, HTN, Cirrhosis, Hepatitis C, CHF. Patient presented to ER at request of PMD. As per at bedside patient had a fall 3 weeks when he was taking her to bathroom. He denies her hitting her head and denies LOC. Patient has also been experiencing worsening SOB and lower extremity edema. PMD recently decreased Lasix dose. Patient is alert and oriented x 2 (person and place not time). acute respiratory failure requiring HFOT now off that and on med surg floor patient got paracentesis on 05/06 no SBP patient had MBS dysphagia ground diet nectar thick liquids CKD renal function improving and now creatinnine is 2.9 - Instructions Diet, Activity, Other Instructions: will need outpatient follow up with Dr Luis Duron at [facility] for Liver Cirrhosis Referrals: Amanda Suggs DO [Staff Physician] - Jose Manuel Arango MD, MD [Primary Care Provider] - Luis Duron [Non Staff, Medical] - - Home Medications Comprehensive Discharge Medication List: Ambulatory Orders Furosemide [Lasix] 40 mg PO BID 01/08/19 Ergocalciferol [Vitamin D2] 50,000 unit PO Q7D@1000 #4 capsule 01/14/19 Metoprolol Succinate [Toprol XL -] 25 mg PO DAILY #30 tab.sr.24h 01/14/19 Apixaban [Eliquis] 2.5 mg PO BID 04/20/19 Ondansetron [Zofran -] 4 mg PO TID 04/20/19 Spironolactone 75 mg PO BID 04/20/19 Lactulose 10 gm PO HS 04/21/19
--- NOTE | 2019-05-09 14:07 | PN ---
Progress Note, Physician History of Present Illness: Pt seen and examined at bedside. No great change overnight. - Current Medication List Current Medications: Active Medications Apixaban (Eliquis -) 2.5 mg PO BID [facility] Last Admin: 05/09/19 09:46 Dose: 2.5 mg Docusate Sodium (Colace -) 100 mg PO DAILY [facility] Last Admin: 05/09/19 09:47 Dose: Not Given Ergocalciferol (Drisdol -) 50,000 unit PO Q7D@1000 [facility] Last Admin: 05/04/19 09:23 Dose: 50,000 unit Famotidine (Pepcid -) 20 mg PO BID [facility] Last Admin: 05/09/19 09:46 Dose: 20 mg Hydrocortisone (Anusol 2.5% Hc Cream -) 1 applic TP DAILY [facility] Last Admin: 05/09/19 09:51 Dose: 1 applic Lactulose (Cephulac (Oral Use)) 20 gm PO BID [facility] Last Admin: 05/09/19 09:46 Dose: 20 gm Ondansetron HCl (Zofran -) 4 mg PO TID PRN PRN Reason: NAUSEA AND/OR VOMITING Polyethylene Glycol (Miralax (For Daily Use) -) 17 gm PO BID [facility] Last Admin: 05/09/19 09:47 Dose: Not Given Rifaximin (Xifaxan -) 550 mg PO BID [facility] Last Admin: 05/09/19 09:46 Dose: 550 mg Senna (Senna -) 1 tab PO HS [facility] Last Admin: 05/08/19 21:18 Dose: 1 tab Torsemide (Demadex -) 20 mg PO DAILY [facility] - Objective Vital Signs: Vital Signs Temperature 97.7 F 05/09/19 09:52 Pulse Rate 98 H 05/09/19 09:52 Respiratory Rate 05/09/19 09:52 Blood Pressure 118/64 05/09/19 09:52 O2 Sat by Pulse Oximetry (%) 99 05/08/19 21:00 Constitutional: Yes: Calm Eyes: Yes: Conjunctiva Clear HENT: Yes: Atraumatic Neck: Yes: Supple Cardiovascular: Yes: S1, S2 Respiratory: Yes: CTA Bilaterally Gastrointestinal: Yes: Soft Musculoskeletal: Yes: Muscle Weakness Edema: No Neurological: Yes: Confusion Labs: CBC, BMP 05/09/19 09:00 05/09/19 06:00 INR, PTT INR 1.42 (0.83-1.09) H 05/06/19 11:08 Assessment/Plan Current Medications Generic Name Dose Route Start Last Admin Trade Name Julieta PRN Reason Stop Dose Admin Apixaban 2.5 mg 05/02/19 10:00 05/09/19 09:46 Eliquis - PO 2.5 mg BID RADHA Administration Docusate Sodium 100 mg 04/28/19 10:00 05/09/19 09:47 Colace - PO Not Given DAILY RADHA Ergocalciferol 50,000 unit 05/04/19 10:00 05/04/19 09:23 Drisdol - PO 50,000 unit Q7D@1000 RADHA Administration Famotidine 20 mg 05/08/19 10:00 05/09/19 09:46 Pepcid - PO 20 mg BID RADHA Administration Hydrocortisone 1 applic 05/02/19 10:00 05/09/19 09:51 Anusol 2.5% Hc Cream - TP 1 applic DAILY RADHA Administration Lactulose 20 gm 04/27/19 22:00 05/09/19 09:46 Cephulac (Oral Use) PO 20 gm BID RADHA Administration Ondansetron HCl 4 mg 04/27/19 12:33 Zofran - PO TID PRN NAUSEA AND/OR VOMITING Polyethylene Glycol 17 gm 04/27/19 22:00 05/09/19 09:47 Miralax (For Daily Use) - PO Not Given BID RADHA Rifaximin 550 mg 04/27/19 22:00 05/09/19 09:46 Xifaxan - PO 550 mg BID RADHA Administration Senna 1 tab 04/27/19 22:00 05/08/19 21:18 Senna - PO 1 tab HS RADHA Administration Torsemide 20 mg 05/10/19 10:00 Demadex - PO DAILY [facility] Laboratory Tests 05/09/19 06:00 Phosphorus 3.3 Impression 1. DAVID 2. CKD 3. hep C cirrhosis 4. UTI 5. sepsis 6. ascites 7. hypervolemic hyponatremia 8. coagulopathy 9. hypernatremia PLAN - cont lactulose - pressure stable off of midodrine - norvasc stopped as well - cont torsemide and monitor volume status - ensure adequate po free water intake, pt has elevated sodium - monitor sodium closely
--- NOTE | 2019-05-09 16:19 | PATH ---
Cytology Non-Gynecological Report Patient Name: HANG DUNHAM [facility]. Rec. #: [id number] /Age/Gender: 1950 (Age: 68) / F Account: [id number] Location: [address] [place] [address] Taken: 05/06/2019 Received: 05/07/2019 Reported: 05/09/2019 Physicians: Chris Rowley M.D. Specimen(s) Received A: ABDOMINAL FLUID B: ABDOMINAL FLUID Clinical History Ascites Final Diagnosis A-B. ABDOMINAL FLUID, PARACENTESIS: SATISFACTORY FOR EVALUATION. NO MALIGNANT CELLS IDENTIFIED. MESOTHELIAL CELLS AND LYMPHOCYTES PRESENT. Electronically Signed Amanda Mahan M.D. Gross Description A. Approximately 60 cc of cloudy yellow fluid received fixed in 50% alcohol. One cytofunnel prepared and Pap stained. One cellblock prepared. B. Approximately 2000 cc of oli fluid received fresh. One cytofunnel prepared and Pap stained. One cellblock prepared.
[2019-05-10] MEDS ORDERED: TORSEMIDE 20 MG TABLET (FP) PO SCH (10:00)
== END 2019-05-09 14:09 | DRG 871 ==
LOC: JER 12:53 → JERBED 15:10 → JICU 17:16 → J8W 04-27 13:10 → J5S 05-07 12:04
PROVIDERS: ADMIT Family Medicine; ATTEND Family Medicine
PROC: 05HM33Z Insertion of Infusion Device into Right Internal Jugular Vein, Percutaneous Approach (ICD-10-PCS; principal; 2019-04-22)
PROC: B513ZZA Fluoroscopy of Right Jugular Veins, Guidance (ICD-10-PCS; 2019-04-22)
DX: A41.89 Other specified sepsis (principal); J18.9 Pneumonia, unspecified organism; R65.21 Severe sepsis with septic shock; J96.01 Acute respiratory failure with hypoxia; G93.41 Metabolic encephalopathy; N17.9 Acute kidney failure, unspecified; E87.1 Hypo-osmolality and hyponatremia; N39.0 Urinary tract infection, site not specified; K76.6 Portal hypertension; E87.2 Acidosis; R18.8 Other ascites; D68.9 Coagulation defect, unspecified; E87.0 Hyperosmolality and hypernatremia; I82.409 Acute embolism and thrombosis of unspecified deep veins of unspecified lower extremity; I10 Essential (primary) hypertension; D72.829 Elevated white blood cell count, unspecified; R41.82 Altered mental status, unspecified; F41.9 Anxiety disorder, unspecified; H91.90 Unspecified hearing loss, unspecified ear; D69.6 Thrombocytopenia, unspecified; K74.60 Unspecified cirrhosis of liver; B18.2 Chronic viral hepatitis C; D73.1 Hypersplenism; R13.10 Dysphagia, unspecified; D84.1 Defects in the complement system; B96.20 Unspecified Escherichia coli [E. coli] as the cause of diseases classified elsewhere; D64.9 Anemia, unspecified; I95.9 Hypotension, unspecified; I12.9 Hypertensive chronic kidney disease with stage 1 through stage 4 chronic kidney disease, or unspecified chronic kidney disease; N18.9 Chronic kidney disease, unspecified; G30.9 Alzheimer's disease, unspecified; F02.80 Dementia in other diseases classified elsewhere, unspecified severity, without behavioral disturbance, psychotic disturbance, mood disturbance, and anxiety; K72.90 Hepatic failure, unspecified without coma; Z86.718 Personal history of other venous thrombosis and embolism
CPT/HCPCS: 36415; 36430; 36600; 70450-TC; 71045-TC-FY; 72125-TC; 74230-TC-FY; 76705-TC; 76775-TC; 76942-TC; 80048; 80053; 81003; 82042; 82140; 82150; 82272; 82340; 82465; 82550; 82565; 82570; 82595; 82607; 82728; 82803; 82945; 82962; 83036; 83516; 83520; 83540; 83550; 83605; 83615; 83735; 83880; 83986; 84100; 84155; 84157; 84165; 84300; 84436; 84443; 84478; 84484; 84540; 85025; 85027; 85610; 85730; 86038; 86160; 86225; 86256; 86431; 86850; 86900; 86901; 87040; 87070; 87075; 87086; 87102; 87116; 87186; 87205; 87206; 87210; 92611-GN; 93005; 93010; 93970-TC; 94640; 97116-GP; 97162-GP; 99285-25; J0131; P9017; P9047

== ENCOUNTER 2019-06-03 09:24 | Inpatient (IN) | payer OTHER ==
[2019-06-03] MEDS ORDERED: methylPREDNISolone NA SUCC 125 MG/2 ML VIAL IVPUSH ONE (09:26)
[2019-06-03] MEDS ORDERED: ALBUTEROL SO4 2.5/IPRATROPIUM 0.5 INH SOL 3 ML VIAL.NEB. NEB ONE ×4 (09:26→16:40)
[2019-06-03] MEDS ORDERED: MAGNESIUM SULF 50% (8.12 MEQ/2 ML-1 GM VIAL) IVPB ONE (09:28)
[2019-06-03] MEDS ORDERED: methylPREDNISolone NA SUCC 125 MG/2 ML VIAL ONE (09:33)
[2019-06-03] MEDS ORDERED: CEFTRIAXONE 1,000 MG in DEXTROSE 5%-WATER - 50 ML IVPB ONE (09:36)
[2019-06-03] MEDS ORDERED: AZITHROMYCIN IVPB 500 MG in DEXTROSE 5%-WATER - 250 ML IVPB ONE (09:37)
[2019-06-03] MEDS ORDERED: ALBUTEROL SO4 0.083% IH SOL 2.5 MG/3 ML VIAL.NEB. NEB ONE ×3 (09:39→12:21)
[2019-06-03] MEDS ORDERED: IPRATROPIUM BR 0.02% 0.5 MG/2.5 ML VIAL.NEB. NEB ONE (09:40)
[2019-06-03] MEDS ORDERED: MAGNESIUM SULFATE IN WATER 2 GM/50 ML IVPB IVPB ONE (09:50)
--- NOTE | 2019-06-03 09:52 | PDOC ---
Attending Attestation - Resident Resident Name: Holly Steve - HPI HPI: 06/03/19 11:46 Pt presents to the ED complaining of shortness of breath, fevers and productive cough. HYpoxic on room air for EMS with o2 sat of 88. History of COPD, CHF, cirrhosis. 06/03/19 11:49 06/03/19 12:01 - Physicial Exam PE: 06/03/19 12:03 Agree with resident exam. Patient is alert and oriented but extremely tachypneic, speaking in 2-3 word sentences. + diffuse wheezing. + abdominal distention. + 2 pitting edema to knee b/l. 06/03/19 12:07 - Critical Care Time Total Critical Care Time: 35 Critical Care Statement: The care of this patient involved high complexity decision making to prevent further life threatening deterioration of the patient 's condition and/or to evaluate & treat vital organ system(s) failure or risk of failure. - Medical Decision Making 06/03/19 12:13 Pt presents to the ED tachypneic and tachycardic, in moderate respiratory distress. STarted on nebs and bicarb on arrival to the ED, with improvement in her respiratory status. Concern for PNA given COPD history and reports of fever in NH. Patient was diffusely edematous, so fluid resuscitation with held intitially. STarted on broad spectrum antibiotics. Labs show elevated lactate and elevated K. Case discussed with Dr. Bagley, who recommends gentle IV hydration potassium cocktail. Will admit to medicine for continued management.
[2019-06-03] MEDS ORDERED: VANCOMYCIN 1,000 MG in DEXTROSE 5%-WATER - 250 ML IVPB ONE (10:17)
--- NOTE | 2019-06-03 10:18 | PDOC ---
History of Present Illness - History of Present Illness Initial Comments: HPI: 68yo F with PMH of dementia, chronic UTI, HTN, cirrhosis, metabolic encephalopathy, Hepatitis C, CHF, DVT on Eliquis sent by [facility] for evaluation of "sob, chf, ascities" and abnormal vitals signs (BP 107/63, T 97.9 , SaO2 85% wit 2-3L NC, P101, RR 26). Patient states she feels short of breath. Presented to our ED with hypoxia to 82% while on non-rebreather mask. History limited due to patient's dementia. PCP: Dr. Alphonse Ramey Nephrologoly: Dr. Bagley ROS: unable to complete (dementia) PE: General: Awake, alert, and oriented x 3, on BiPAP Head: No signs of trauma Eyes: EOMI ENT: Dry mucus membranes Neck: Normal ROM, supple Lungs: Diffuse rales, L>R Cardio: Regular rhythm, S1 and S2 present Abdomen: Tender over area of caput medusae. Soft, distended. No guarding, no rebound. Extremities: Distal pulses present SKIN: Multiple ecchymysoses present on bilateral upper extremities Neurologic: Cranial nerves II through XII grossly intact. Only answering yes/no to questions. Rectal: The skin is without erythema or induration. Multiple hemorrhoids present. No fissures, skin tags, warts, or discharge. Sphincter tone normal. There are no masses palpated on digital exam. ED Course/MDM: DDX including but not limited to PNA, UTI, bacteremia, CHF exacerbation, ACS VS notable for hypoxia Sepsis workup initiated 06/03/19 10:18 Per [place] paperwork: cirrhosis, htn, ascities, systolic chf, dementia (unspecified without behavioral distrubance), metabolic encephalopathy, hcv, DVT on eliquis, ulcerative colitis, bilateral forearm dermatitis Shante Maurice, daughter [phone] PCP: Orlando Cunha Present complaint: sob, chf, ascities BP 107/63, T 97.9, SaO2 85% wit 2-3L NC, P101, RR 26 06/03/19 11:19 Xray as read by radiology: "EXAM#: TYPE/EXAM: RESULT: [id number] RAD/CHEST X-RAY PORTABLE* Chest: Shortness of breath A single AP view of the chest reveals progressive infiltrative changes on the left but decreased infiltrative changes on the right since 05/02/2019. Correlation recommended. Reported By: Sanchez Mark MD 06/03/19 1028 " Decision made to treat for HAP with vanomycin, ceftriaxone, and azithromycin CBC WBC 11.2 K/mm3 (4.0-10.0) H 06/03/19 09:50 RBC 2.80 M/mm3 (3.60-5.2) L 06/03/19 09:50 Hgb 8.9 GM/dL (10.7-15.3) L 06/03/19 09:50 Hct 28.2 % (32.4-45.2) L 06/03/19 09:50 MCV 100.5 fl (80-96) H 06/03/19 09:50 MCH 31.8 pg (25.7-33.7) 06/03/19 09:50 MCHC 31.7 g/dl (32.0-36.0) L 06/03/19 09:50 RDW 18.8 % (11.6-15.6) H 06/03/19 09:50 Plt Count 68 K/MM3 (134-434) L D 06/03/19 09:50 MPV 9.9 fl (7.5-11.1) D 06/03/19 09:50 Absolute Neuts (auto) 9.7 K/mm3 (1.5-8.0) H 06/03/19 09:50 Neutrophils % 86.5 % (42.8-82.8) H D 06/03/19 09:50 Lymphocytes % 7.6 % (8-40) L D 06/03/19 09:50 Monocytes % 5.3 % (3.8-10.2) 06/03/19 09:50 Eosinophils % 0.5 % (0-4.5) D 06/03/19 09:50 Basophils % 0.1 % (0-2.0) 06/03/19 09:50 Nucleated RBC % 0 % (0-0) 06/03/19 09:50 Leukocytosis Hgb at baseline FOBT negative CMP Sodium 144 mmol/L (136-145) 06/03/19 09:50 Potassium 6.3 mmol/L (3.5-5.1) H* 06/03/19 09:50 Chloride 117 mmol/L (98-107) H 06/03/19 09:50 Carbon Dioxide 19 mmol/L (21-32) L 06/03/19 09:50 Anion Gap 8 MMOL/L (8-16) 12 09:50 BUN 48.2 mg/dL (7-18) H 06/03/19 09:50 Creatinine 3.4 mg/dL (0.55-1.3) H 06/03/19 09:50 Est GFR (CKD-EPI)AfAm 15.27 06/03/19 09:50 Est GFR (CKD-EPI)NonAf 13.17 06/03/19 09:50 Random Glucose 75 mg/dL (74-106) 06/03/19 09:50 Lactic Acid 4.2 mmol/L (0.4-2.0) H* 06/03/19 09:40 Calcium 8.7 mg/dL (8.5-10.1) 06/03/19 09:50 Phosphorus 3.9 mg/dL (2.5-4.9) 06/03/19 09:50 Magnesium 1.8 mg/dL (1.8-2.4) 06/03/19 09:50 Total Bilirubin 2.6 mg/dL (0.2-1) H 06/03/19 09:50 AST 43 U/L (15-37) H 06/03/19 09:50 ALT 26 U/L (13-61) 06/03/19 09:50 Alkaline Phosphatase 161 U/L (45-117) H 06/03/19 09:50 Ammonia < 10.00 umol/L (11-32) L 06/03/19 09:40 Troponin I < 0.02 ng/ml (0.00-0.05) 06/03/19 09:50 B-Natriuretic Peptide 2868.5 pg/ml (5-125) H 06/03/19 09:50 Total Protein 5.9 g/dl (6.4-8.2) L 06/03/19 09:50 Albumin 1.8 g/dl (3.4-5.0) L 06/03/19 09:50 K elevated BUN elevated Cr elevated Lactate elevated BNP elevated Tpn undetectable Patient treated for hyperkalemia: Insulin Regular 10 units Dextrose 25gm D50%Water Albuterol 1 amp Lokelma 10mg UTI present; already covered with antibiotics Decision made to defer fluid hydration despite elevated lactate as patient with signs of fluid overload Dr. Connors spoke with Dr. Bagley who will evaluate the patient. Recommendations appreciated. Calcium and Bicarb ordered. 06/03/19 12:16 Plan for admission Awaiting callback from Dr. Ramey 06/03/19 12:31 06/03/19 12:47 <Holly Steve - Last Filed: 06/03/19 12:47> <Jamie Connors - Last Filed: 06/03/19 14:15> - General Chief Complaint: Respiratory Stated Complaint: Shortness of Breath Time Seen by Provider: 06/03/19 09:44 Past History - Past Medical History Anemia: No Asthma: No Cancer: No Cardiac Disorders: No CVA: No COPD: No CHF: No DVT: No Dementia: Yes Diabetes: No GI Disorders: No Disorders: Yes (CHRONIC UTI) HTN: Yes Hypercholesterolemia: No Liver Disease: Yes (CIRRHOSIS, HEP C) Psychiatric Problems: Yes (ANXIETY) Seizures: No Thyroid Disease: No - Surgical History Abdominal Surgery: No Appendectomy: No Cardiac Surgery: No Cholecystectomy: No Lung Surgery: No Neurologic Surgery: No Orthopedic Surgery: No - Psycho Social/Smoking Cessation Hx Smoking History: Never smoked Have you smoked in the past 12 months: No Hx Alcohol Use: No Drug/Substance Use Hx: No Substance Use Type: None Hx Substance Use Treatment: No <Holly Steve - Last Filed: 06/03/19 12:47> <Jamie Connors - Last Filed: 06/03/19 14:15> - Past Medical History Allergies/Adverse Reactions: Allergies Allergy/AdvReac Type Severity Reaction Status Date / Time No Known Allergies Allergy Verified 06/03/19 10:34 Home Medications: Ambulatory Orders Ergocalciferol [Vitamin D2] 50,000 unit PO Q7D@1000 #4 capsule 01/14/19 Apixaban [Eliquis] 2.5 mg PO BID 04/20/19 Calcium Acetate [Phoslo -] 667 mg PO TIDCM capsule 05/09/19 Famotidine [Pepcid -] 20 mg PO BID tablet 05/09/19 Midodrine HCl [Proamatine -] 5 mg PO BID PRN tablet 05/09/19 Ondansetron [Zofran -] 4 mg PO TID PRN #30 tab 05/09/19 Rifaximin [Xifaxan -] 550 mg PO BID #30 tablet 05/09/19 Albuterol 2.5/Ipratropium 0.5 [Duoneb -] 1 neb NEB Q4H 06/03/19 Lactulose (Oral Use) [Cephulac -] 30 gm PO QID 06/03/19 Moxifloxacin HCl [Moxifloxacin] 3 ml OP TID 06/03/19 Polyethylene Glycol 3350 [Miralax 119 gm Btl -] 17 gm PO BID PRN 06/03/19 Potassium Chloride 40 meq PO DAILY 06/03/19 Torsemide [Demadex -] 20 mg PO ASDIR 06/03/19 *Physical Exam - Vital Signs Last Vital Signs Temp Pulse Resp BP Pulse Ox 98.7 F 108 H 22 H 122/76 98 06/03/19 11:27 06/03/19 11:27 06/03/19 11:27 06/03/19 11:27 06/03/19 11:27 <Jamie Connors - Last Filed: 06/03/19 14:15> ED Treatment Course - LABORATORY CBC & Chemistry Diagram: 06/03/19 09:50 06/03/19 09:50 - Medications Given in the ED: ED Medications Discontinued Medications Generic Name Dose Route Start Last Admin Trade Name Freq PRN Reason Stop Dose Admin Albuterol/Ipratropium 2 amp 06/03/19 09:26 06/03/19 09:35 Duoneb - NEB 06/03/19 09:27 2 amp ONCE ONE Administration Magnesium Sulfate 2 gm 06/03/19 09:28 06/03/19 09:51 Magnesium Sulfate IVPB 06/03/19 09:29 2 gm ONCE ONE Administration Methylprednisolone Sodium Succinate 125 mg 06/03/19 09:26 06/03/19 09:40 Solu-Medrol - IVPUSH 06/03/19 09:27 125 mg ONCE ONE Administration <Holly Steve - Last Filed: 06/03/19 12:47> - LABORATORY CBC & Chemistry Diagram: 06/03/19 09:50 06/03/19 09:50 - ADDITIONAL ORDERS Additional order review: Laboratory Results 06/03/19 06/03/19 06/03/19 13:15 10:51 10:44 PT with INR INR PTT (Actin FS) Anticoagulation Therapy No Result Required. Puncture Site Right radial ABG pH 7.35 ABG pCO2 at Pt Temp 30.2 L ABG pO2 at Pt Temp 85.3 ABG HCO3 16.1 L ABG O2 Sat (Measured) 95.1 ABG O2 Content 11.4 ABG Base Excess -8.2 L Matt Test Positive Carboxyhemoglobin 0.7 Methemoglobin < 1.0 O2 Delivery Device Bipap Oxygen Flow Rate 40% Vent Mode S/t Vent Rate 14 Mechanical Rate Bipap Pressure Support Vent 10/5 Sodium Potassium Chloride Carbon Dioxide Anion Gap BUN Creatinine Est GFR (CKD-EPI)AfAm Est GFR (CKD-EPI)NonAf Random Glucose Lactic Acid 5.6 H* Calcium Phosphorus Magnesium Total Bilirubin AST ALT Alkaline Phosphatase Ammonia Troponin I B-Natriuretic Peptide Total Protein Albumin Urine Color Urine Appearance Urine pH Ur Specific Groom Urine Protein Urine Glucose (UA) Urine Ketones Urine Blood Urine Nitrite Urine Bilirubin Urine Urobilinogen Ur Leukocyte Esterase Urine WBC (Auto) Urine Casts (Auto) U Epithel Cells (Auto) Urine Bacteria (Auto) Stool Occult Blood Negative 06/03/19 06/03/19 06/03/19 10:20 09:50 09:50 PT with INR INR PTT (Actin FS) Anticoagulation Therapy Puncture Site ABG pH ABG pCO2 at Pt Temp ABG pO2 at Pt Temp ABG HCO3 ABG O2 Sat (Measured) ABG O2 Content ABG Base Excess Matt Test Carboxyhemoglobin Methemoglobin O2 Delivery Device Oxygen Flow Rate Vent Mode Vent Rate Mechanical Rate Pressure Support Vent Sodium 144 Potassium 6.3 H* Chloride 117 H Carbon Dioxide 19 L Anion Gap 8 BUN 48.2 H Creatinine 3.4 H Est GFR (CKD-EPI)AfAm 15.27 Est GFR (CKD-EPI)NonAf 13.17 Random Glucose 75 Lactic Acid Calcium 8.7 Phosphorus 3.9 Magnesium 1.8 Total Bilirubin 2.6 H AST 43 H ALT 26 Alkaline Phosphatase 161 H Ammonia Troponin I < 0.02 B-Natriuretic Peptide 2868.5 H Total Protein 5.9 L Albumin 1.8 L Urine Color Yellow Urine Appearance Turbid Urine pH 5.0 Ur Specific Groom 1.013 Urine Protein Negative Urine Glucose (UA) Negative Urine Ketones Negative Urine Blood 3+ H Urine Nitrite Positive H Urine Bilirubin Negative Urine Urobilinogen 0.2 Ur Leukocyte Esterase 3+ H Urine WBC (Auto) 403 Urine Casts (Auto) 43 U Epithel Cells (Auto) 1.4 Urine Bacteria (Auto) 1274.7 Stool Occult Blood 06/03/19 06/03/19 06/03/19 09:50 09:40 09:40 PT with INR 33.60 H INR 2.82 H PTT (Actin FS) 50.5 H Anticoagulation Therapy Puncture Site ABG pH ABG pCO2 at Pt Temp ABG pO2 at Pt Temp ABG HCO3 ABG O2 Sat (Measured) ABG O2 Content ABG Base Excess Matt Test Carboxyhemoglobin Methemoglobin O2 Delivery Device Oxygen Flow Rate Vent Mode Vent Rate Mechanical Rate Pressure Support Vent Sodium Potassium Chloride Carbon Dioxide Anion Gap BUN Creatinine Est GFR (CKD-EPI)AfAm Est GFR (CKD-EPI)NonAf Random Glucose Lactic Acid 4.2 H* Calcium Phosphorus Magnesium Total Bilirubin AST ALT Alkaline Phosphatase Ammonia < 10.00 L Troponin I B-Natriuretic Peptide Total Protein Albumin Urine Color Urine Appearance Urine pH Ur Specific Groom Urine Protein Urine Glucose (UA) Urine Ketones Urine Blood Urine Nitrite Urine Bilirubin Urine Urobilinogen Ur Leukocyte Esterase Urine WBC (Auto) Urine Casts (Auto) U Epithel Cells (Auto) Urine Bacteria (Auto) Stool Occult Blood 06/03/19 09:50 RBC 2.80 L MCV 100.5 H MCHC 31.7 L RDW 18.8 H MPV 9.9 D Neutrophils % 86.5 H D Lymphocytes % 7.6 L D Monocytes % 5.3 Eosinophils % 0.5 D Basophils % 0.1 - RADIOLOGY Radiology Studies Ordered: Category Date Time Status CXRPORT [CHEST X-RAY PORTABLE*] [RAD] Stat Radiology 06/03/19 09:29 Completed - Medications Given in the ED: ED Medications Discontinued Medications Generic Name Dose Route Start Last Admin Trade Name Freq PRN Reason Stop Dose Admin Albuterol Sulfate 1 amp 06/03/19 12:01 06/03/19 12:26 Ventolin 0.083% Nebulizer Soln - NEB 06/03/19 12:02 1 amp ONCE ONE Administration Albuterol/Ipratropium 2 amp 06/03/19 09:26 06/03/19 09:35 Duoneb - NEB 06/03/19 09:27 2 amp ONCE ONE Administration Calcium Gluconate 1,000 mg 06/03/19 12:13 06/03/19 12:36 Calcium Gluconate 10% - IVPUSH 06/03/19 12:14 1,000 mg ONCE ONE Administration Dextrose 25 gm 06/03/19 12:00 06/03/19 12:15 D50w (Vial) - IVPUSH 06/03/19 12:01 25 gm ONCE ONE Administration Fentanyl 25 mcg 06/03/19 12:51 06/03/19 13:25 Sublimaze Injection - IVPUSH 06/03/19 12:52 25 mcg ONCE ONE Administration Azithromycin 500 mg/ Dextrose 250 mls @ 250 mls/hr 06/03/19 09:37 06/03/19 10 :43 IVPB 06/03/19 10:36 250 mls/hr ONCE ONE Administration Ceftriaxone Sodium 1,000 mg/ 50 mls @ 100 mls/hr 06/03/19 09:36 06/03/19 10: 37 Dextrose IVPB 06/03/19 10:05 100 mls/hr ONCE ONE Administration Vancomycin HCl 1,000 mg/ 250 mls @ 166.667 mls/hr 06/03/19 10:17 06/03/19 12: 36 Dextrose IVPB 06/03/19 11:46 166.667 mls/hr ONCE ONE Administration Protocol Insulin Human Regular 10 units 06/03/19 12:00 06/03/19 12:16 Novolin R Vial *For Ivpush Or Iv Drip Only* IVPUSH 06/03/19 12:01 10 units ONCE ONE Administration Magnesium Sulfate 2 gm 06/03/19 09:28 06/03/19 09:51 Magnesium Sulfate IVPB 06/03/19 09:29 2 gm ONCE ONE Administration Methylprednisolone Sodium Succinate 125 mg 06/03/19 09:26 06/03/19 09:40 Solu-Medrol - IVPUSH 06/03/19 09:27 125 mg ONCE ONE Administration Sodium Bicarbonate 4.2 meq 06/03/19 12:12 06/03/19 12:35 Sodium Bicarbonate 4.2% - IVPUSH 06/03/19 12:13 4.2 meq ONCE ONE Administration Sodium Zirconium Cyclosilicate 10 gm 06/03/19 12:02 06/03/19 13:45 Lokelma PO 06/03/19 12:03 10 gm ONCE ONE Administration <Jamie Connors - Last Filed: 06/03/19 14:15> Discharge - Discharge Information Problems reviewed: Yes - Admission Yes <Holly Steve - Last Filed: 06/03/19 12:47> - Admission Yes <Jamie Connors - Last Filed: 06/03/19 14:15> - Discharge Information Clinical Impression/Diagnosis: Pneumonia Qualifiers: Pneumonia type: due to unspecified organism Laterality: left Lung location: lower lobe of lung Qualified Code(s): J18.9 - Pneumonia, unspecified organism UTI (urinary tract infection) Qualifiers: Urinary tract infection type: site unspecified Hematuria presence: with hematuria Qualified Code(s): N39.0 - Urinary tract infection, site not specified Condition: Guarded - Follow up/Referral Referrals: Alphonse Ramey MD [Primary Care Provider] - - Patient Discharge Instructions - Post Discharge Activity
[2019-06-03] MEDS ORDERED: CEFTRIAXONE 1 GM/50 ML BAG ONE (10:28)
[2019-06-03] MEDS ORDERED: AZITHROMYCIN IVPB 500 MG/250 ML BAG IVPB ONE (10:29)
[2019-06-03 10:51] LABS: BASO % 0.1 % (0-2.0); EOS % 0.5 % (0-4.5); HEMATOCRIT 28.2 % (32.4-45.2); HEMOGLOBIN 8.9 GM/dL (10.7-15.3); LYMPH % 7.6 % (8-40); MCH 31.8 pg (25.7-33.7); MCHC 31.7 g/dl (32.0-36.0); MEAN CELL VOLUME 100.5 fl (80-96); MEAN PLT VOLUME 9.9 fl (7.5-11.1); MONO % 5.3 % (3.8-10.2); NEUT % 86.5 % (42.8-82.8); PLATELET COUNT 68 K/MM3 (134-434); RDW 18.8 % (11.6-15.6); WHITE BLOOD COUNT 11.2 K/mm3 (4.0-10.0)
[2019-06-03] MEDS ORDERED: VANCOMYCIN 1 GRAM (PRE-DOCKED) 1,000 MG/250 ML BAG IVPB ONE (10:53)
[2019-06-03 11:12] LABS: INR 2.82 (0.83-1.09); PROTHROMBIN TIME (PATIENT) 33.6 SEC (9.7-13.0)
[2019-06-03 11:15] LABS: ACTIVATED PTT 50.5 SECONDS (25.2-36.5)
[2019-06-03 11:26] LABS: ARTERIAL BLD GAS O2 SATURATION 95.1 % (95-98); ARTERIAL BLOOD GAS BASE EXCESS -8.2 meq/l (-2-2); ARTERIAL BLOOD GAS PCO2 30.2 mmHg (35-45); ARTERIAL BLOOD GAS PO2 85.3 mmHg (80-100); ARTERIAL BLOOD GAS pH 7.35 (7.35-7.45); CARBOXYHEMOGLOBIN 0.7 % (0-2)
[2019-06-03 11:32] LABS: MAGNESIUM 1.8 mg/dL (1.8-2.4); N-TERMINAL BNP 2868.5 pg/ml (5-125); PHOSPHOROUS 3.9 mg/dL (2.5-4.9)
[2019-06-03 11:38] LABS: ALLENS TEST POSITIVE
[2019-06-03 11:45] LABS: EPI CELLS 1.4 /HPF (0-5/HPF); HYALINE CASTS 43 /lpf (0-8); URINE APPEARANCE TURBID; URINE BACTERIA 1274.7 /hpf (NEGATIVE); URINE BILIRUBIN NEGATIVE (NEGATIVE); URINE COLOR YELLOW; URINE GLUCOSE (UA) NEGATIVE (NEGATIVE); URINE KETONE NEGATIVE (NEGATIVE); URINE LEUK ESTERASE 3+ (NEGATIVE); URINE NITRITE POSITIVE (NEGATIVE); URINE PROTEIN NEGATIVE (NEGATIVE); URINE UROBILINOGEN 0.2 mg/dL (0.2-1.0); URINE WBC 403 /hpf (0-5)
[2019-06-03 11:55] LABS: ALBUMIN 1.8 g/dl (3.4-5.0); ALK PHOS 161 U/L (45-117); ANION GAP 8 MMOL/L (8-16); BILIRUBIN,TOTAL 2.6 mg/dL (0.2-1); BLOOD UREA NITROGEN 48.2 mg/dL (7-18); CALCIUM 8.7 mg/dL (8.5-10.1); CHLORIDE 117 mmol/L (98-107); CO2 19 mmol/L (21-32); CREATININE 3.4 mg/dL (0.55-1.3); GLUCOSE,RANDOM 75 mg/dL (74-106); SGOT/AST 43 U/L (15-37); SGPT/ALT 26 U/L (13-61); SODIUM 144 mmol/L (136-145); TOT PROT 5.9 g/dl (6.4-8.2)
[2019-06-03 11:56] LABS: POTASSIUM 6.3 mmol/L (3.5-5.1)
[2019-06-03] MEDS ORDERED: INSULIN REGULAR HUMAN 100 UNITS/ML *VIAL IVPUSH ONE (12:00)
[2019-06-03] MEDS ORDERED: DEXTROSE 50%-WATER - 25 GM/50 ML VIAL IVPUSH ONE (12:00)
[2019-06-03] MEDS ORDERED: DEXTROSE 50%-WATER 25 GM/50 ML DISP.SYRIN ONE (12:10)
[2019-06-03] MEDS ORDERED: SODIUM BICARBONATE 4.2% 5 MEQ/10 ML DISP.SYRIN IVPUSH ONE ×2 (12:12→12:19)
[2019-06-03] MEDS ORDERED: CALCIUM GLUCONATE 10% - 1,000 MG/10 ML VIAL IVPUSH ONE (12:13)
[2019-06-03] MEDS ORDERED: CALCIUM GLUCONATE 10% - 1,000 MG/10 ML VIAL ONE (12:20)
[2019-06-03 12:22] LABS: ANISOCYTOSIS 1+; MACROCYTOSIS 1+; OVALOCYTE 1+; PLATELET ESTIMATE DECREASED
[2019-06-03] MEDS: SODIUM CHLORIDE 0.45% 1,000 ML IV SCH (12:36)
[2019-06-03] MEDS: SODIUM ZIRCONIUM CYCLOSILICATE (LOKELMA) 5 GM PACKET PO ONE ×2 (13:19→13:45)
[2019-06-03] MEDS ORDERED: ALBUMIN HUMAN 25% 12.5 GM/50 ML VIAL IVPB ONE (13:36)
--- NOTE | 2019-06-03 14:11 | CONSULT ---
Consult Consult Specialty:: Nephrology Reason for Consultation:: CKD - History of Present Illness Chief Complaint: fever and productive cough History of Present Illness: Pt is a 68 year old female with pmhx of dementia. hep c, cirrhosis, uti. chf, ckd, and dvt who presents with cough and shortness of breath. She was found to be septic and have worsening renal failure. I was called to evaluate her. She improved with bipap. She has had poor po intake. She was hypoxic in er as well. She is a poor historian and is unable to give much history. 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 no documented history of tb or hepatitis - Alcohol/Substance Use Hx Alcohol Use: No History of Substance Use: reports: None - Smoking History Smoking history: Never smoked Have you smoked in the past 12 months: No - Social History Usual Living Arrangement: With Significant Other ADL: Family Assistance History of Recent Travel: No Home Medications - Allergies Allergies/Adverse Reactions: Allergies Allergy/AdvReac Type Severity Reaction Status Date / Time No Known Allergies Allergy Verified 06/03/19 10:34 - Home Medications Home Medications: Ambulatory Orders Ergocalciferol [Vitamin D2] 50,000 unit PO Q7D@1000 #4 capsule 01/14/19 Apixaban [Eliquis] 2.5 mg PO BID 04/20/19 Calcium Acetate [Phoslo -] 667 mg PO TIDCM capsule 05/09/19 Famotidine [Pepcid -] 20 mg PO BID tablet 05/09/19 Midodrine HCl [Proamatine -] 5 mg PO BID PRN tablet 05/09/19 Ondansetron [Zofran -] 4 mg PO TID PRN #30 tab 05/09/19 Rifaximin [Xifaxan -] 550 mg PO BID #30 tablet 05/09/19 Acetaminophen [Tylenol] 325 mg PO PRN PRN 06/03/19 Albuterol 2.5/Ipratropium 0.5 [Duoneb -] 1 neb NEB Q4H 06/03/19 Furosemide Injection [Lasix Injection -] 60 mg IVPB DAILY PRN 06/03/19 Lactulose (Oral Use) [Cephulac -] 30 gm PO QID 06/03/19 Moxifloxacin HCl [Moxifloxacin] 3 ml OP TID 06/03/19 Polyethylene Glycol 3350 [Miralax 119 gm Btl -] 17 gm PO BID PRN 06/03/19 Potassium Chloride 40 meq PO DAILY 06/03/19 Torsemide [Demadex -] 20 mg PO ASDIR 06/03/19 Torsemide [Demadex -] 20 mg PO Q2D 06/03/19 Family Medical History Family History: Unable to Obtain, Denies Review of Systems Unable to obtain ROS, reason: dementia - limited - Review of Systems Constitutional: reports: Malaise Cardiovascular: reports: Edema Gastrointestinal: reports: No Symptoms Neurological: reports: Confusion Physical Exam Vital Signs: Vital Signs Temperature 98.7 F 06/03/19 11:27 Pulse Rate 108 H 06/03/19 11:27 Respiratory Rate 22 H 06/03/19 11:27 Blood Pressure 122/76 06/03/19 11:27 O2 Sat by Pulse Oximetry (%) 98 06/03/19 11:27 Constitutional: Yes: Calm, Mild Distress Eyes: Yes: Conjunctiva Clear HENT: Yes: Atraumatic Cardiovascular: Yes: S1, S2 Respiratory: Yes: On BiPap Gastrointestinal: Yes: Ascites Renal/: Yes: Incontinence Musculoskeletal: Yes: Muscle Weakness Edema: Yes Edema: LLE: 1+, RLE: 1+ Integumentary: Yes: Bruising Neurological: Yes: Oriented Labs: CBC, BMP 06/03/19 09:50 06/03/19 09:50 Laboratory Tests 01/09/19 04/21/19 04/22/19 11:40 05:55 05:55 RADHA M-Tristen Serum Cryoglobulins H Rheumatoid Factor < 10.0 JOSE A Screen Negative c-ANCA Proteinase 3 (PR3) p-ANCA Atypical p-ANCA Myeloperoxidase Ab Double Strand DNA Ab Glomerular Base Memb Ab Complement C3 Complement C4 Hep Bs Antigen Negative Hep B Core IgM Ab Negative Hepatitis C Ab (EIA) >11.0 H 11/05/19 11/05/19 11/06/19 05:00 05:00 05:41 RADHA M-Tristen Not observed Serum Cryoglobulins Rheumatoid Factor JOSE A Screen c-ANCA <1:20 Proteinase 3 (PR3) <3.5 p-ANCA <1:20 Atypical p-ANCA <1:20 Myeloperoxidase Ab <9.0 Double Strand DNA Ab <1 Glomerular Base Memb Ab 3 Complement C3 74 L Complement C4 10 L Hep Bs Antigen Hep B Core IgM Ab Hepatitis C Ab (EIA) Imaging - Results Chest X-ray: Report Reviewed Problem List - Problems (1) Hyperkalemia Code(s): E87.5 - HYPERKALEMIA (2) Pneumonia Code(s): J18.9 - PNEUMONIA, UNSPECIFIED ORGANISM Qualifiers: Pneumonia type: due to unspecified organism Laterality: left Lung location: lower lobe of lung Qualified Code(s): J18.9 - Pneumonia, unspecified organism (3) Sepsis Code(s): A41.9 - SEPSIS, UNSPECIFIED ORGANISM Assessment/Plan Current Medications Generic Name Dose Route Start Last Admin Trade Name Freq PRN Reason Stop Dose Admin Sodium Chloride 1,000 mls @ 125 mls/hr 06/03/19 12:15 06/03/19 12:36 /2 Normal Saline IV 125 mls/hr ASDIR RADHA Administration Impression 1. DAVID 2. CKD 3. hep C cirrhosis 4. hyperkalemia 5. sepsis 6. ascites 7. hypervolemic hyponatremia 8. coagulopathy 9. hypernatremia 10. cryoglobulins PLAN - treat potassium medically - rheum follow up for positive crypglobulins - fluid challenge - monitor volume status - daily cxr - cont bipap - ICU monitoring
[2019-06-03 14:29] LABS: URINE RBC 7.7 /hpf (0-4)
--- NOTE | 2019-06-03 14:33 | CONSULT ---
Consultation: REQUESTING PROVIDER: Dr. Ramey CONSULT REQUEST: We have been asked to medically evaluate this patient for acute hypoxic respiratory failure. HISTORY OF PRESENT ILLNESS: 68F w/ pmhx of dementia, chronic UTI, HTN, decompensated HCV cirrhosis, CHF, COPD, DVT presents in the ED from [facility] for acute hypoxic respiratory failure. Per ED, pt was brought in by EMS found to be satting at 82% on nonrebreather. She was given duonebs and bicarb in the ED with some improvement in her breathing. Pt's present at bedside. History was limited due to dementia however pt was seen awake, alert, and AAOx2 (person and place) upon my encounter. Pt also on NIPPV satting 99-100%. Pt admits to shortness of breath, but denies chest pain, f/c, n/v. REVIEW OF SYSTEMS: CONSTITUTIONAL: Absent: fever, chills, diaphoresis, generalized weakness, malaise, loss of appetite, weight change HEENT: Absent: rhinorrhea, nasal congestion, throat pain, throat swelling, difficulty swallowing, mouth swelling, ear pain, eye pain, visual changes CARDIOVASCULAR: peripheral edema Absent: chest pain, syncope, palpitations, irregular heart rate, lightheadedness , RESPIRATORY: shortness of breath Absent: cough, shortness of breath, dyspnea with exertion, orthopnea, wheezing, stridor, hemoptysis GASTROINTESTINAL: abdominal distension Absent: abdominal pain, nausea, vomiting, diarrhea, constipation, melena, hematochezia GENITOURINARY: Absent: dysuria, frequency, urgency, hesitancy, hematuria, flank pain, genital pain MUSCULOSKELETAL: Absent: myalgia, arthralgia, joint swelling, back pain, neck pain SKIN: Absent: rash, itching, pallor HEMATOLOGIC/IMMUNOLOGIC: Absent: easy bleeding, easy bruising, lymphadenopathy, frequent infections ENDOCRINE: Absent: unexplained weight gain, unexplained weight loss, heat intolerance, cold intolerance NEUROLOGIC: Absent: headache, focal weakness or paresthesias, dizziness, unsteady gait, seizure, mental status changes, bladder or bowel incontinence PSYCHIATRIC: Absent: anxiety, depression, suicidal or homicidal ideation, hallucinations. PHYSICAL EXAMINATION Vital Signs - 24 hr 06/03/19 06/03/19 06/03/19 09:30 09:45 10:00 Temperature 98.7 F Pulse Rate 117 H Pulse Rate [ 103 H 102 H Apical] Respiratory 32 H 30 H 26 H Rate Blood Pressure 112/57 L Blood Pressure 122/71 158/147 H [Left Arm] O2 Sat by Pulse 100 100 100 Oximetry (%) 06/03/19 06/03/19 06/03/19 10:30 11:00 11:27 Temperature 98.7 F Pulse Rate 108 H Pulse Rate [ 105 H 108 H Apical] Respiratory 26 H 26 H 22 H Rate Blood Pressure 122/76 Blood Pressure 116/51 L 112/59 L [Left Arm] O2 Sat by Pulse 100 97 98 Oximetry (%) 06/03/19 06/03/19 06/03/19 11:45 12:45 13:30 Temperature Pulse Rate Pulse Rate [ 106 H 106 H 103 H Apical] Respiratory 28 H 28 H 26 H Rate Blood Pressure Blood Pressure 117/66 111/70 120/62 [Left Arm] O2 Sat by Pulse 96 96 97 Oximetry (%) 06/03/19 14:00 Temperature Pulse Rate Pulse Rate [ 95 H Apical] Respiratory 24 H Rate Blood Pressure Blood Pressure 116/76 [Left Arm] O2 Sat by Pulse 100 Oximetry (%) GENERAL: Awake and alert, on NIPPV. Answers questions appropriately. AAOx2 ( person, place). Anasarca. HEENT: AT/NC. EOMI. Dry mucus membranes. Hard of hearing. NECK: +JVD. Supples, non-tender. LUNGS: Tachypneic. B/l scattered wheezes, fine crackles noted. Accessory muscle use noted. HEART: RRR. Normal S1, S2. No murmurs noted. ABDOMEN: Distended, +fluid shift. +caput medusae. tympanic upon percussion. MUSCULOSKELETAL: Normal range of motion at all joints. No bony deformities or tenderness. No CVA tenderness. UPPER EXTREMITIES: 2+ pulses, warm, well-perfused. No cyanosis. No clubbing. Cap refill <2 seconds. Scattered ecchymosis noted on b/l upper extremities. LOWER EXTREMITIES: 2+ pulses, warm, well-perfused. No calf tenderness. 3+ pitting edema b/l. NEUROLOGICAL: Cranial nerves II-XII intact. Normal speech. PSYCHIATRIC: Cooperative. Good eye contact. Appropriate mood and affect. SKIN: Warm, dry, thin skin. Laboratory Results - last 24 hr 06/03/19 06/03/1906/03/19 09:40 09:40 09:50 WBC 11.2 H RBC 2.80 L Hgb 8.9 L Hct 28.2 L MCV 100.5 H MCH 31.8 MCHC 31.7 L RDW 18.8 H Plt Count 68 L D MPV 9.9 D Absolute Neuts (auto) 9.7 H Neutrophils % 86.5 H D Neutrophils % (Manual) 84.5 H Band Neutrophils % 1.0 Lymphocytes % 7.6 L D Lymphocytes % (Manual) 8.3 D Monocytes % 5.3 Monocytes % (Manual) 6 Eosinophils % 0.5 D Eosinophils % (Manual) 0.0 Basophils % 0.1 Basophils % (Manual) 0.0 Myelocytes % (Man) 0 D Promyelocytes % (Man) 0 Blast Cells % (Manual) 0 Nucleated RBC % 0 Metamyelocytes 0 Hypochromia 1+ Platelet Estimate Decreased Polychromasia 1+ Poikilocytosis 1+ Anisocytosis 1+ Microcytosis 0 Macrocytosis 1+ Ovalocytes 1+ Odette Cells 1+ Schistocytes 1+ PT with INR INR PTT (Actin FS) Anticoagulation Therapy Puncture Site ABG pH ABG pCO2 at Pt Temp ABG pO2 at Pt Temp ABG HCO3 ABG O2 Sat (Measured) ABG O2 Content ABG Base Excess Matt Test Carboxyhemoglobin Methemoglobin O2 Delivery Device Oxygen Flow Rate Vent Mode Vent Rate Mechanical Rate Pressure Support Vent Sodium Potassium Chloride Carbon Dioxide Anion Gap BUN Creatinine Est GFR (CKD-EPI)AfAm Est GFR (CKD-EPI)NonAf Random Glucose Lactic Acid 4.2 H* Calcium Phosphorus Magnesium Total Bilirubin AST ALT Alkaline Phosphatase Ammonia < 10.00 L Troponin I B-Natriuretic Peptide Total Protein Albumin Urine Color Urine Appearance Urine pH Ur Specific [place] Urine Protein Urine Glucose (UA) Urine Ketones Urine Blood Urine Nitrite Urine Bilirubin Urine Urobilinogen Ur Leukocyte Esterase Urine WBC (Auto) Urine RBC (Auto) Urine Casts (Auto) U Epithel Cells (Auto) Urine Bacteria (Auto) Stool Occult Blood 06/03/19 06/03/19 06/03/19 09:50 09:50 09:50 WBC RBC Hgb Hct MCV MCH MCHC RDW Plt Count MPV Absolute Neuts (auto) Neutrophils % Neutrophils % (Manual) Band Neutrophils % Lymphocytes % Lymphocytes % (Manual) Monocytes % Monocytes % (Manual) Eosinophils % Eosinophils % (Manual) Basophils % Basophils % (Manual) Myelocytes % (Man) Promyelocytes % (Man) Blast Cells % (Manual) Nucleated RBC % Metamyelocytes Hypochromia Platelet Estimate Polychromasia Poikilocytosis Anisocytosis Microcytosis Macrocytosis Ovalocytes [place] Cells Schistocytes PT with INR 33.60 H INR 2.82 H PTT (Actin FS) 50.5 H Anticoagulation Therapy Puncture Site ABG pH ABG pCO2 at Pt Temp ABG pO2 at Pt Temp ABG HCO3 ABG O2 Sat (Measured) ABG O2 Content ABG Base Excess Matt Test Carboxyhemoglobin Methemoglobin O2 Delivery Device Oxygen Flow Rate Vent Mode Vent Rate Mechanical Rate Pressure Support Vent Sodium 144 Potassium 6.3 H* Chloride 117 H Carbon Dioxide 19 L Anion Gap 8 BUN 48.2 H Creatinine 3.4 H Est GFR (CKD-EPI)AfAm 15.27 Est GFR (CKD-EPI)NonAf 13.17 Random Glucose 75 Lactic Acid Calcium 8.7 Phosphorus 3.9 Magnesium 1.8 Total Bilirubin 2.6 H AST 43 H ALT 26 Alkaline Phosphatase 161 H Ammonia Troponin I < 0.02 B-Natriuretic Peptide 2868.5 H Total Protein 5.9 L Albumin 1.8 L Urine Color Urine Appearance Urine pH Ur Specific [place] Urine Protein Urine Glucose (UA) Urine Ketones Urine Blood Urine Nitrite Urine Bilirubin Urine Urobilinogen Ur Leukocyte Esterase Urine WBC (Auto) Urine RBC (Auto) Urine Casts (Auto) U Epithel Cells (Auto) Urine Bacteria (Auto) Stool Occult Blood 06/03/19 06/03/19 06/03/19 10:20 10:44 10:51 WBC RBC Hgb Hct MCV MCH MCHC RDW Plt Count MPV Absolute Neuts (auto) Neutrophils % Neutrophils % (Manual) Band Neutrophils % Lymphocytes % Lymphocytes % (Manual) Monocytes % Monocytes % (Manual) Eosinophils % Eosinophils % (Manual) Basophils % Basophils % (Manual) Myelocytes % (Man) Promyelocytes % (Man) Blast Cells % (Manual) Nucleated RBC % Metamyelocytes Hypochromia Platelet Estimate Polychromasia Poikilocytosis Anisocytosis Microcytosis Macrocytosis Ovalocytes Odette Cells Schistocytes PT with INR INR PTT (Actin FS) Anticoagulation Therapy No Result Required. Puncture Site Right radial ABG pH 7.35 ABG pCO2 at Pt Temp 30.2 L ABG pO2 at Pt Temp 85.3 ABG HCO3 16.1 L ABG O2 Sat (Measured) 95.1 ABG O2 Content 11.4 ABG Base Excess -8.2 L Matt Test Positive Carboxyhemoglobin 0.7 Methemoglobin < 1.0 O2 Delivery Device Bipap Oxygen Flow Rate 40% Vent Mode S/t Vent Rate 14 Mechanical Rate Bipap Pressure Support Vent 10/5 Sodium Potassium Chloride Carbon Dioxide Anion Gap BUN Creatinine Est GFR (CKD-EPI)AfAm Est GFR (CKD-EPI)NonAf Random Glucose Lactic Acid Calcium Phosphorus Magnesium Total Bilirubin AST ALT Alkaline Phosphatase Ammonia Troponin I B-Natriuretic Peptide Total Protein Albumin Urine Color Yellow Urine Appearance Turbid Urine pH 5.0 Ur Specific [place] 1.013 Urine Protein Negative Urine Glucose (UA) Negative Urine Ketones Negative Urine Blood 3+ H Urine Nitrite Positive H Urine Bilirubin Negative Urine Urobilinogen 0.2 Ur Leukocyte Esterase 3+ H Urine WBC (Auto) 403 Urine RBC (Auto) 7.7 Urine Casts (Auto) 43 U Epithel Cells (Auto) 1.4 Urine Bacteria (Auto) 1274.7 Stool Occult Blood Negative 06/03/19 13:15 WBC RBC Hgb Hct MCV MCH MCHC RDW Plt Count MPV Absolute Neuts (auto) Neutrophils % Neutrophils % (Manual) Band Neutrophils % Lymphocytes % Lymphocytes % (Manual) Monocytes % Monocytes % (Manual) Eosinophils % Eosinophils % (Manual) Basophils % Basophils % (Manual) Myelocytes % (Man) Promyelocytes % (Man) Blast Cells % (Manual) Nucleated RBC % Metamyelocytes Hypochromia Platelet Estimate Polychromasia Poikilocytosis Anisocytosis Microcytosis Macrocytosis Ovalocytes [place] Cells Schistocytes PT with INR INR PTT (Actin FS) Anticoagulation Therapy Puncture Site ABG pH ABG pCO2 at Pt Temp ABG pO2 at Pt Temp ABG HCO3 ABG O2 Sat (Measured) ABG O2 Content ABG Base Excess Matt Test Carboxyhemoglobin Methemoglobin O2 Delivery Device Oxygen Flow Rate Vent Mode Vent Rate Mechanical Rate Pressure Support Vent Sodium Potassium Chloride Carbon Dioxide Anion Gap BUN Creatinine Est GFR (CKD-EPI)AfAm Est GFR (CKD-EPI)NonAf Random Glucose Lactic Acid 5.6 H* Calcium Phosphorus Magnesium Total Bilirubin AST ALT Alkaline Phosphatase Ammonia Troponin I B-Natriuretic Peptide Total Protein Albumin Urine Color Urine Appearance Urine pH Ur Specific [place] Urine Protein Urine Glucose (UA) Urine Ketones Urine Blood Urine Nitrite Urine Bilirubin Urine Urobilinogen Ur Leukocyte Esterase Urine WBC (Auto) Urine RBC (Auto) Urine Casts (Auto) U Epithel Cells (Auto) Urine Bacteria (Auto) Stool Occult Blood Active Medications Generic Name Dose Route Start Last Admin Trade Name Julieta PRN Reason Stop Dose Admin Sodium Chloride 1,000 mls @ 125 mls/hr 06/03/19 12:15 06/03/19 12:36 1/2 Normal Saline IV 125 mls/hr ASDIR RADHA Administration ASSESSMENT/PLAN: 68F w/ pmhx of dementia, chronic UTI, HTN, decompensated HCV cirrhosis, CHF, COPD, DVT presents in the ED from [facility] for acute hypoxic respiratory failure. Neuro -Stable. Awake and alert, dementia at baseline per , AAOx2 -Cont to monitor neuro status Pulm Acute Hypoxic Respiratory Failure; likely sepsis 2/2 HCAP/UTI COPD -Duonebs, Solumedrol 125, Mag Sulf 2gm, Sodium bicarb x1 given in ED -Given Vanc/Azithro/Ceftriaxone x1 in ED -CXR showed progressive infiltrative changes on L, but decreased infiltrative changes on R since 05/02/19 -Cont NIPPV; currently on I/E 03/23, rate 14, FiO2 40%. Satting at 97-100% -Cont IV Vanc/Zosyn for now -Solumedrol 40 Q6H IVP CV Hx of CHF -Currently HD stable -Pressors not needed -VS stable; continue to monitor closely. Maintain MAP >65 -Last echo (01/09/19): moderate aortic sclerosis, mild to mod , trace to mild MR, LVEF nl -Will hold all diuretics as patient is likely intravascularly depleted and will need IV fluid hydration GI Ascites Hx of Decompensated HCV Cirrhosis -Previously had paracentesis during last admission -TBili 2.6 (previously 2.5 on last admission, 04/30/19), AST/ALT 43/26, Alk Phos 161 -Abd u/s ordered to assess ascites; may need paracentesis -GI consulted -Cont home Rifaximin, Lactulose; goal of 2-3 loose BMs daily Renal Hyperkalemia CKD Sepsis 2/2 UTI (w/ hx of ESBL UTI) -Regular insulin, Dextrose, Lokelma, Calcium Gluconate given -EKG showed sinus tach, QTc 447ms, low voltage QRS, no ST-T changes -Repeat BMP (check K+) -Nephro consulted -1/2NS @ 125 -Cont IV abx ID Sepsis 2/2 HCAP/UTI (hx of ESBL UTI) -Vanc/Ceftriaxone/Azithromycin x1 in ED -CXR showed L sided infiltrates -UA+ for nitrite, 3+ LE, 403 WBCs; UCx/BCx pending -WBC 11.2, Lac 4.2 --> 5.6; will cont to trend -1/2 NS @ 125 -Cont with Vanc/Zosyn -ID consulted Heme Hx of DVT Thrombocytopenia, likely 2/2 chronic disease in setting of cirrhosis/renal failure/sepsis -Was previously on Eliquis, but per , was discontinued recently due to nose bleed -H/H currently stable; will continue to monitor -Hold heparin products Prophylaxis DVT: hold due to thrombocytopenia GI: Cont home Pepcid FEN 1/2 NS @125 Recheck lytes in AM Sodium-controlled diet when pt's respiratory status improves Dispo Will monitor in ICU given pt's tenuous respiratory status Started discussing with pt's regarding pt's code status. He is still thinking about it, will need to rediscuss goals of care. Dispo: We will continue to follow the patient. Thank you for this consultative opportunity. Visit type - Emergency Visit Emergency Visit: Yes ED Registration Date: 06/03/19 Care time: The patient presented to the Emergency Department on the above date and was hospitalized for further evaluation of their emergent condition. - New Patient This patient is new to me today: Yes Date on this admission: 06/03/19 - Critical Care Critical Care patient: Yes Total Critical Care Time (in minutes): 45 Critical Care Statement: The care of this patient involved high complexity decision making to prevent further life threatening deterioration of the patient 's condition and/or to evaluate & treat vital organ system(s) failure or risk of failure. ATTENDING PHYSICIAN STATEMENT I saw and evaluated the patient. I reviewed the resident's note and discussed the case with the resident. I agree with the resident's findings and plan as documented. SUBJECTIVE: OBJECTIVE: ASSESSMENT AND PLAN:
[2019-06-03] MEDS ORDERED: HEPARIN NA (PORCINE) 5,000 UNITS/ML 1ML VIAL SQ SCH (15:00)
--- NOTE | 2019-06-03 15:20 | HP ---
Admitting History and Physical - Primary Care Physician PCP: Alphonse Ramey - Admission Chief Complaint: sent in for shortness of breath History of Present Illness: 68yo F with PMH of dementia, chronic UTI, HTN, cirrhosis, metabolic encephalopathy, Hepatitis C, CHF, DVT on Eliquis sent by [facility] for evaluation of "sob, chf, ascities" and abnormal vitals signs (BP 107/63, T 97.9 , SaO2 85% wit 2-3L NC, P101,R 26 in the ER noted to be hypoxic and tachypneic placed on bipap labs wbc 11.2 lactic 4.2 now 5.6, creatinine 3.4 from 2.9 History Source: Medical Record - Past Medical History [employer]: Yes: Dementia Cardiovascular: Yes: HTN, Murmur Gastrointestinal: Yes: Other (cirrhosis) Hepatobiliary: Yes: Cirrhosis, Hepatitis C Infectious Disease: Yes: Other (hep c) Psych: Yes: Anxiety, Other ENT: Yes: Other (hearing loss--uses hearing aides) - Smoking History Smoking history: Never smoked Have you smoked in the past 12 months: No - Alcohol/Substance Use Hx Alcohol Use: No History of Substance Use: reports: None - Social History ADL: Family Assistance History of Recent Travel: No Home Medications - Allergies Allergies/Adverse Reactions: Allergies Allergy/AdvReac Type Severity Reaction Status Date / Time No Known Allergies Allergy Verified 06/03/19 10:34 - Home Medications Home Medications: Ambulatory Orders Ergocalciferol [Vitamin D2] 50,000 unit PO Q7D@1000 #4 capsule 01/14/19 Apixaban [Eliquis] 2.5 mg PO BID 04/20/19 Calcium Acetate [Phoslo -] 667 mg PO TIDCM capsule 05/09/19 Famotidine [Pepcid -] 20 mg PO BID tablet 05/09/19 Midodrine HCl [Proamatine -] 5 mg PO BID PRN tablet 05/09/19 Ondansetron [Zofran -] 4 mg PO TID PRN #30 tab 05/09/19 Rifaximin [Xifaxan -] 550 mg PO BID #30 tablet 05/09/19 Acetaminophen [Tylenol] 325 mg PO PRN PRN 06/03/19 Albuterol 2.5/Ipratropium 0.5 [Duoneb -] 1 neb NEB Q4H 06/03/19 Furosemide Injection [Lasix Injection -] 60 mg IVPB DAILY PRN 06/03/19 Lactulose (Oral Use) [Cephulac -] 30 gm PO QID 06/03/19 Moxifloxacin HCl [Moxifloxacin] 3 ml OP TID 06/03/19 Polyethylene Glycol 3350 [Miralax 119 gm Btl -] 17 gm PO BID PRN 06/03/19 Potassium Chloride 40 meq PO DAILY 06/03/19 Torsemide [Demadex -] 20 mg PO ASDIR 06/03/19 Torsemide [Demadex -] 20 mg PO Q2D 06/03/19 Review of Systems - Review of Systems Respiratory: reports: SOB Gastrointestinal: reports: Abdominal Pain Physical Examination Vital Signs: Vital Signs Temperature 98.7 F 06/03/19 11:27 Pulse Rate 95 H 06/03/19 14:00 Respiratory Rate 24 H 06/03/19 14:00 Blood Pressure 116/76 06/03/19 14:00 O2 Sat by Pulse Oximetry (%) 100 06/03/19 14:00 Constitutional: Yes: Anxious, Thin Cardiovascular: Yes: Regular Rate and Rhythm, Tachycardia, S1, S2 Respiratory: Yes: Diminished, On BiPap, Rhonchi, Wheezes Gastrointestinal: Yes: Ascites (firm), Distention, Other (caput medusa) Edema: Yes Edema: LLE: 2+, RLE: 2+ Neurological: Yes: Alert Labs: CBC, BMP 06/03/19 09:50 06/03/19 09:50 Imaging - Results X-ray: Report Reviewed (infiltrative on left side) Problem List - Problems (1) Sepsis Assessment/Plan: iv abx monitor lactate gentle hydration monitor respiratory status bipap for now monitor BP keep MAP> 65 repeat labs pending bronchodilators Code(s): A41.9 - SEPSIS, UNSPECIFIED ORGANISM (2) Hyperkalemia Assessment/Plan: cocktail given in ER repeat labs Code(s): E87.5 - HYPERKALEMIA (3) Pneumonia Assessment/Plan: ID eval icu manangemetn for respiratory status bipap for now broad specutrm iv abx stres dose steroids monktor lactacgte Code(s): J18.9 - PNEUMONIA, UNSPECIFIED ORGANISM Qualifiers: Pneumonia type: due to unspecified organism Laterality: left Lung location: lower lobe of lung Qualified Code(s): J18.9 - Pneumonia, unspecified organism (4) Ascites Assessment/Plan: correct coagulopathy with ffp and vitamin K will need paracentesis once corrected abdominal ultrasound Code(s): R18.8 - OTHER ASCITES Qualifiers: Ascites type: other type Qualified Code(s): R18.8 - Other ascites (5) 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 Assessment/Plan: rifamxin bid gi consult Code(s): B18.2 - CHRONIC VIRAL HEPATITIS C; K74.60 - UNSPECIFIED CIRRHOSIS OF LIVER (6) Coagulopathy Assessment/Plan: ffp and vitamin K Code(s): D68.9 - COAGULATION DEFECT, UNSPECIFIED (7) CKD (chronic kidney disease) Assessment/Plan: coorect the potasium gentle hydration renal sono Code(s): N18.9 - CHRONIC KIDNEY DISEASE, UNSPECIFIED
[2019-06-03] MEDS ORDERED: HEPARIN NA (PORCINE) 5,000 UNITS/ML 1ML VIAL ONE (15:40)
[2019-06-03 16:03] LABS: BLOOD UREA NITROGEN 47.5 mg/dL (7-18); CALCIUM 8.7 mg/dL (8.5-10.1); CREATININE 3.3 mg/dL (0.55-1.3); POTASSIUM 5.6 mmol/L (3.5-5.1)
[2019-06-03] MEDS ORDERED: POLYETHYLENE GLYCOL 3350 119 GM BTL PO PRN (16:17)
[2019-06-03] MEDS: ALBUTEROL SO4 2.5/IPRATROPIUM 0.5 INH SOL 3 ML VIAL.NEB. NEB SCH ×2 (16:44→21:15)
--- NOTE | 2019-06-03 16:53 | PN ---
Progress Note (short form) - Note Progress Note: ID consult dictated imp/reccd 68 yo female admitted from [place] with SOB and edema- noted in ED to be hypoxic and placed on bipap received vanco/rocephin/zithromax and steroids in ED cxray with left sided infiltrate for ICU admisson sepsis with lactic acidosis hypoxia, respiratory failure- on bipap left lung pneumonia history of UTI -ecoli esbl in 05/07- warren on ckd liver cirrhosis with ascites check vancomycin level in am switch to meropenem with prior history of esbl organism check urinary antigens f/u cultures abdominal imaging to evaluate ascites- consider paracentesis to r/o sbp- she has some abdominal discomfort on exam overall prognosis is guarded Problem List - Problems (1) Sepsis Code(s): A41.9 - SEPSIS, UNSPECIFIED ORGANISM (2) Respiratory failure Code(s): J96.90 - RESPIRATORY FAILURE, UNSP, UNSP W HYPOXIA OR HYPERCAPNIA (3) Pneumonia Code(s): J18.9 - PNEUMONIA, UNSPECIFIED ORGANISM (4) Urinary tract infection Code(s): N39.0 - URINARY TRACT INFECTION, SITE NOT SPECIFIED Qualifiers: Urinary tract infection type: site unspecified Hematuria presence: with hematuria Qualified Code(s): N39.0 - Urinary tract infection, site not specified; R31.9 - Hematuria, unspecified (5) 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 Code(s): B18.2 - CHRONIC VIRAL HEPATITIS C; K74.60 - UNSPECIFIED CIRRHOSIS OF LIVER (6) Acute kidney injury superimposed on CKD Code(s): N17.9 - ACUTE KIDNEY FAILURE, UNSPECIFIED; N18.9 - CHRONIC KIDNEY DISEASE, UNSPECIFIED (7) Acute renal failure Code(s): N17.9 - ACUTE KIDNEY FAILURE, UNSPECIFIED (8) History of ESBL E. coli infection Code(s): Z86.19 - PERSONAL HISTORY OF OTHER INFECTIOUS AND PARASITIC DISEASES
[2019-06-03] MEDS ORDERED: PIPERACILLIN/TAZOB 2.25 GM 2.25 GM in DEXTROSE 5%-WATER - 50 ML IVPB SCH (18:00)
--- NOTE | 2019-06-03 18:42 | CONS ---
INFECTIOUS DISEASE CONSULTATION DATE OF CONSULTATION: 06/03/2019 This is a 68-year-old woman who was admitted from the group home. She was recently in the hospital in April with hypotension. She was in the ICU. She had had a fall at home and had worsening shortness of breath and lower extremity edema. During that admission, she was found to have acute renal failure. She has a history of hepatitis C and cirrhosis. She had lactic acidosis with pyuria, had an E. coli ESBL UTI that was treated with ertapenem, and was ultimately discharged to the group home for rehabilitation. She comes to the ER today sent from the group home with worsening shortness of breath and lower extremity edema. She again has a lactic acidosis of 4; that is now on repeat 5.6. She is noted to have a potassium of 6.3 with a creatinine of 3.4, as well as a white count of 11.2, platelets of 68,000, and a new left-sided infiltrate. She was given vancomycin, ceftriaxone, and Zithromax in the emergency room, and I am asked to see her for further evaluation. She is hypoxic. She is on BiPAP and is alert. PAST MEDICAL HISTORY: Notable for a history of hepatitis C, liver cirrhosis, mild dementia, a history of UTI, hypertension, CHF, and chronic kidney disease. SURGICAL HISTORY: Not known. SOCIAL HISTORY: She is residing at the group home. There is no history of cigarette or substance use. ALLERGIES: She has no known drug allergies. CURRENT MEDICATIONS AT THE INTERMEDIATE: Include furosemide (she is normally on torsemide), Moxifloxacin eye drops, rifaximin, MiraLAX, midodrine, lactulose, vitamin D, PhosLo, Eliquis, and DuoNebs. REVIEW OF SYSTEMS: Not obtainable at present. PHYSICAL EXAMINATION: General: She is arousable, and she tries to communicate. Vital Signs: Her temperature is 98.7. Her pulse is 92. Blood pressure 96/52. Respiratory rate is 22. She is on BiPAP, saturating 98%. HEENT: She is normocephalic. I cannot look in her mouth. She has the BiPAP on. Neck: Supple. Lungs: Diminished breath sounds at the bases. Heart: Regular rate and rhythm. Abdomen: Firm. She has ascites. She has some discomfort on palpation of her abdomen. Extremities: Pitting edema 2+. LABORATORY DATA: Labs are notable for a white count of 11.2, hemoglobin 8.9, platelets are 68,000. BUN is 47 and creatinine 3.3. Potassium of 5.6. Lactic acid of 5.6 with LFTs notable for a total bilirubin of 2.6 and an alkaline phosphatase of 161. Urinalysis shows 3+ leukocyte esterase with 403 white cells, and cultures are pending. Chest x-ray findings are notable for left-sided infiltrate. In summary, this is a 68-year-old woman admitted with hypoxia and shortness of breath, found to be in respiratory failure, currently on BiPAP. She has sepsis with lactic acidosis, left lung pneumonia, pyuria with history of prior UTI E. coli ESBL, acute kidney injury on chronic kidney disease, liver cirrhosis with ascites. I would check a vancomycin level in the morning. I would switch her to meropenem with prior history of ESBL organisms. She needs contact isolation. Will check urinary antigens. She received Zithromax already today. Follow up her cultures. Abdominal imaging to evaluate her ascites. Would consider paracentesis to rule out SBP as she has some abdominal discomfort on exam. Overall prognosis is guarded. She is being admitted to the ICU. Over 45 minutes was spent on the care of this critically ill patient. Patient was seen in the ER. Camelia [id number]
[2019-06-03] MEDS: MEROPENEM 500 MG in DEXTROSE 5%-WATER 100 ML IVPB SCH (19:00)
[2019-06-03] MEDS: CALCIUM ACETATE 667 MG CAPSULE (FP) PO SCH (19:00)
[2019-06-03] MEDS: LACTULOSE 20 GM/30 ML UDC (FOR ORAL USE ONLY) PO SCH ×2 (19:00→22:34)
[2019-06-03] MEDS ORDERED: MEROPENEM 500 MG VIAL (RESTRICTED TO ID) IVPB ONE (19:19)
[2019-06-03] MEDS ORDERED: DEXTROSE 5%-WATER 100 ML IVPB ONE (19:20)
[2019-06-03] MEDS: methylPREDNISolone NA SUCC 40 MG/1 ML VIAL IVPUSH SCH (20:43)
[2019-06-03] MEDS ORDERED: MUPIROCIN 2% TOPICAL OINTMENT FOR DECOLONIZATION NS SCH (22:00)
[2019-06-03] MEDS ORDERED: CHLORHEXIDINE GLUCONATE 4% CLEANSER FOR DECOLONIZATION TP SCH (22:00)
[2019-06-03] MEDS: MUPIROCIN 2% TOPICAL OINTMENT FOR DECOLONIZATION NS SCH (22:12)
[2019-06-03] MEDS: CHLORHEXIDINE GLUCONATE 4% CLEANSER FOR DECOLONIZATION TP SCH (22:13)
[2019-06-03 22:15] LABS: BLOOD UREA NITROGEN 47.2 mg/dL (7-18); CALCIUM 8.5 mg/dL (8.5-10.1); CREATININE 3.2 mg/dL (0.55-1.3); POTASSIUM 5.8 mmol/L (3.5-5.1)
[2019-06-03] MEDS: RIFAXIMIN 550 MG TABLET (UD) PO SCH (22:34)
[2019-06-03] MEDS: MIDODRINE HCL 5 MG TABLET PO PRN (23:47)
[2019-06-03] MEDS ORDERED: MIDODRINE HCL 5 MG TABLET PO ONE (23:48)
[2019-06-04] MEDS: ALBUTEROL SO4 2.5/IPRATROPIUM 0.5 INH SOL 3 ML VIAL.NEB. NEB SCH ×7 (00:30→23:18)
[2019-06-04] MEDS ORDERED: DEXTROSE 50%-WATER - 25 GM/50 ML VIAL IVPUSH ONE ×3 (00:38→08:11)
[2019-06-04] MEDS ORDERED: INSULIN REGULAR HUMAN 100 UNITS/ML *VIAL IVPUSH ONE ×2 (00:40→08:11)
[2019-06-04] MEDS ORDERED: CALCIUM GLUCONATE 10% - 1,000 MG/10 ML VIAL IVPB ONE (00:41)
[2019-06-04] MEDS ORDERED: DEXTROSE 50%-WATER 25 GM/50 ML DISP.SYRIN ONE (01:09)
[2019-06-04] MEDS: methylPREDNISolone NA SUCC 40 MG/1 ML VIAL IVPUSH SCH ×4 (03:07→22:20)
[2019-06-04] MEDS ORDERED: DEXTROSE 5%-WATER 100 ML IVPB ONE ×2 (04:28→16:33)
[2019-06-04] MEDS ORDERED: MEROPENEM 500 MG VIAL (RESTRICTED TO ID) IVPB ONE ×2 (04:28→16:33)
[2019-06-04] MEDS: MEROPENEM 500 MG in DEXTROSE 5%-WATER 100 ML IVPB SCH ×2 (04:33→16:37)
[2019-06-04] MEDS ORDERED: ALBUTEROL SO4 0.083% IH SOL 2.5 MG/3 ML VIAL.NEB. NEB ONE (08:10)
[2019-06-04] MEDS ORDERED: CALCIUM GLUCONATE 10% - 1,000 MG/10 ML VIAL IVPUSH ONE (08:11)
--- NOTE | 2019-06-04 09:48 | EKG ---
Test Reason : Blood Pressure : / mmHG Vent. Rate : 108 BPM Atrial Rate : 108 BPM P-R Int : 128 ms QRS Dur : 072 ms QT Int : 334 ms P-R-T Axes : 062 046 078 degrees QTc Int : 447 ms SINUS TACHYCARDIA LOW VOLTAGE QRS CANNOT RULE OUT ANTERIOR INFARCT (CITED ON OR BEFORE 25-APR-2019) ABNORMAL ECG WHEN COMPARED WITH ECG OF 25-APR-2019 08:54, NONSPECIFIC T WAVE ABNORMALITY NO LONGER EVIDENT IN INFERIOR LEADS NONSPECIFIC T WAVE ABNORMALITY NOW EVIDENT IN LATERAL LEADS Confirmed by MD Boom, Reggie ([id number]) on 06/04/2019 9:47:36 AM Referred By: Confirmed By:Reggie Nur MD
[2019-06-04] MEDS: LACTULOSE 20 GM/30 ML UDC (FOR ORAL USE ONLY) PO SCH ×5 (10:00→22:55)
[2019-06-04] MEDS: CALCIUM ACETATE 667 MG CAPSULE (FP) PO SCH ×3 (10:00→17:46)
[2019-06-04] MEDS ORDERED: VANCOMYCIN 1 GM in D5W (PRE-DOCKED) 1,000 MG/250 ML IVPB SCH (10:00)
--- NOTE | 2019-06-04 10:51 | PN ---
Progress Note, Physician - Current Medication List Current Medications: Active Medications Albuterol/Ipratropium (Duoneb -) 1 amp NEB RQ4H [facility] Last Admin: 06/04/19 07:20 Dose: 1 amp Calcium Acetate (Phoslo -) 667 mg PO TIDCM [facility] Last Admin: 06/03/19 19:00 Dose: 667 mg Chlorhexidine Gluconate (Hibiclens For Decolonization -) 1 applic TP HS [facility] Last Admin: 06/03/19 22:13 Dose: 1 applic Ergocalciferol (Drisdol -) 50,000 unit PO Q7D@1000 [facility] Famotidine (Acid Ecg Technician) 10 mg PO DAILY [facility] Sodium Chloride (1/2 Normal Saline) 1,000 mls @ 125 mls/hr IV ASDIR [facility] Last Admin: 06/03/19 12:36 Dose: 125 mls/hr Meropenem 500 mg/ Dextrose 100 mls @ 200 mls/hr IVPB Q12H [facility] Last Admin: 06/04/19 04:33 Dose: 200 mls/hr Lactulose (Cephulac (Oral Use)) 30 gm PO QID [facility] Last Admin: 06/03/19 22:34 Dose: 30 gm Methylprednisolone Sodium Succinate (Solu-Medrol -) 40 mg IVPUSH Q6H-IV [facility] Last Admin: 06/04/19 09:25 Dose: 40 mg Midodrine (Proamatine -) 5 mg PO BID PRN PRN Reason: MAP<65mm Hg OR SBP <90 Last Admin: 06/03/19 23:47 Dose: 5 mg Mupirocin (Bactroban Ointment (For Decolonization) -) 1 applic NS BID [facility] Stop: 06/08/19 21:59 Last Admin: 06/03/19 22:12 Dose: Not Given Polyethylene Glycol (Miralax (For Daily Use) -) 17 gm PO BID PRN PRN Reason: CONSTIPATION Rifaximin (Xifaxan -) 550 mg PO BID [facility] Last Admin: 06/03/19 22:34 Dose: 550 mg - Objective Vital Signs: Vital Signs Temperature 97.9 F 06/04/19 06:00 Pulse Rate 78 06/04/19 06:00 Respiratory Rate 18 06/04/19 06:00 Blood Pressure 102/58 L 06/04/19 06:00 O2 Sat by Pulse Oximetry (%) 97 06/04/19 08:07 Cardiovascular: Yes: S1, S2 Respiratory: Yes: Diminished, On BiPap, Rales Gastrointestinal: Yes: Soft, Ascites, Distention Labs: CBC, BMP 06/03/19 09:50 06/03/19 21:30 INR, PTT INR 2.82 (0.83-1.09) H 06/03/19 09:50 Assessment/Plan - Problems (1) Sepsis Assessment/Plan: iv abx monitor lactate hydration monitor respiratory status bipap for now monitor BP keep MAP> 65 repeat labs ICU CARE bronchodilators Code(s): A41.9 - SEPSIS, UNSPECIFIED ORGANISM (2) Hyperkalemia Assessment/Plan: cocktail given in ER repeat labs Code(s): E87.5 - HYPERKALEMIA (3) Pneumonia Assessment/Plan: ID eval icu manangemetn for respiratory status bipap for now broad specutrm iv abx stress dose steroids monitor lactate Code(s): J18.9 - PNEUMONIA, UNSPECIFIED ORGANISM Qualifiers: Pneumonia type: due to unspecified organism Laterality: left Lung location: lower lobe of lung Qualified Code(s): J18.9 - Pneumonia, unspecified organism (4) Ascites Assessment/Plan: with coagulopathy given ffp and vitamin K will need paracentesis once corrected abdominal ultrasound Code(s): R18.8 - OTHER ASCITES Qualifiers: Ascites type: other type Qualified Code(s): R18.8 - Other ascites (5) 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
[2019-06-04] MEDS ORDERED: SODIUM CHLORIDE 250 ML IV STA (11:32)
--- NOTE | 2019-06-04 11:47 | PN ---
Teaching Attending Note Name of Resident: Xin Richardson ATTENDING PHYSICIAN STATEMENT I saw and evaluated the patient. I reviewed the resident's note and discussed the case with the resident. I agree with the resident's findings and plan as documented. SUBJECTIVE: Patient seen and examined in the ICU. Lethargic but arousable on NIPPV. No pressors but hemodynamics are marginal. Intake & Output 06/01/19 06/02/19 06/03/19 06/04/19 23:59 23:59 23:59 23:59 Intake Total 1500 1550 Output Total 210 300 Balance 1290 1250 Weight 160 lb 1.6 oz Last Vital Signs Temp Pulse Resp BP Pulse Ox 97.9 F 78 18 102/58 L 97 06/04/19 06:00 06/04/19 06:00 06/04/19 06:00 06/04/19 06:00 06/04/19 08:07 Active Medications Albuterol/Ipratropium (Duoneb -) 1 amp NEB RQ4H [facility] Last Admin: 06/04/19 07:20 Dose: 1 amp Calcium Acetate (Phoslo -) 667 mg PO TIDCM [facility] Last Admin: 06/03/19 19:00 Dose: 667 mg Chlorhexidine Gluconate (Hibiclens For Decolonization -) 1 applic TP HS [facility] Last Admin: 06/03/19 22:13 Dose: 1 applic Ergocalciferol (Drisdol -) 50,000 unit PO Q7D@1000 [facility] Famotidine (Acid Ocean Forwarder) 10 mg PO DAILY [facility] Sodium Chloride (1/2 Normal Saline) 1,000 mls @ 125 mls/hr IV ASDIR [facility] Last Admin: 06/03/19 12:36 Dose: 125 mls/hr Meropenem 500 mg/ Dextrose 100 mls @ 200 mls/hr IVPB Q12H [facility] Last Admin: 06/04/19 04:33 Dose: 200 mls/hr Sodium Chloride (Normal Saline -) 250 mls @ 250 mls/hr IV ASDIR [facility] Stop: 06/04/19 12:31 Lactulose (Cephulac (Oral Use)) 30 gm PO QID [facility] Last Admin: 06/03/19 22:34 Dose: 30 gm Methylprednisolone Sodium Succinate (Solu-Medrol -) 40 mg IVPUSH Q6H-IV [facility] Last Admin: 06/04/19 09:25 Dose: 40 mg Midodrine (Proamatine -) 5 mg PO BID PRN PRN Reason: MAP<65mm Hg OR SBP <90 Last Admin: 06/03/19 23:47 Dose: 5 mg Mupirocin (Bactroban Ointment (For Decolonization) -) 1 applic NS BID [facility] Stop: 06/08/19 21:59 Last Admin: 06/03/19 22:12 Dose: Not Given Polyethylene Glycol (Miralax (For Daily Use) -) 17 gm PO BID PRN PRN Reason: CONSTIPATION Rifaximin (Xifaxan -) 550 mg PO BID [facility] [place] Last Admin: 06/03/19 22:34 Dose: 550 mg GENERAL: Arousal NIPPV. Anasarca. HEENT: AT/NC. EOMI. Dry mucus membranes. Hard of hearing. NECK: +JVD. Supples, non-tender. LUNGS: Tachypneic. B/l scattered wheezes, fine crackles noted. Accessory muscle use noted. HEART: RRR. Normal S1, S2. No murmurs noted. ABDOMEN: Distended, +fluid shift. +caput medusae. tympanic upon percussion. MUSCULOSKELETAL: Normal range of motion at all joints. No bony deformities or tenderness. No CVA tenderness. UPPER EXTREMITIES: 2+ pulses, warm, well-perfused. No cyanosis. No clubbing. Cap refill <2 seconds. Scattered ecchymosis noted on b/l upper extremities. LOWER EXTREMITIES: 2+ pulses, warm, well-perfused. No calf tenderness. 3+ pitting edema b/l. NEUROLOGICAL: Non-focal SKIN: Warm, dry, thin skin. Laboratory Results - last 24 hr 06/03/19 06/03/19 06/03/19 09:40 09:50 09:50 Neutrophils % (Manual) 84.5 H Band Neutrophils % 1.0 Lymphocytes % (Manual) 8.3 D Monocytes % (Manual) 6 Eosinophils % (Manual) 0.0 Basophils % (Manual) 0.0 Myelocytes % (Man) 0 D Promyelocytes % (Man) 0 Blast Cells % (Manual) 0 Metamyelocytes 0 Hypochromia 1+ Platelet Estimate Decreased Polychromasia 1+ Poikilocytosis 1+ Anisocytosis 1+ Microcytosis 0 Macrocytosis 1+ Ovalocytes 1+ Odette Cells 1+ Schistocytes 1+ Sodium 144 Potassium 6.3 H* Chloride 117 H Carbon Dioxide 19 L Anion Gap 8 BUN 48.2 H Creatinine 3.4 H Est GFR (CKD-EPI)AfAm 15.27 Est GFR (CKD-EPI)NonAf 13.17 Random Glucose 75 Lactic Acid 4.2 H* Calcium 8.7 Total Bilirubin 2.6 H AST 43 H ALT 26 Alkaline Phosphatase 161 H Troponin I < 0.02 Total Protein 5.9 L Albumin 1.8 L Urine Color Urine Appearance Urine pH Ur Specific [place] Urine Protein Urine Glucose (UA) Urine Ketones Urine Blood Urine Nitrite Urine Bilirubin Urine Urobilinogen Ur Leukocyte Esterase Urine WBC (Auto) Urine RBC (Auto) Urine Casts (Auto) U Epithel Cells (Auto) Urine Bacteria (Auto) 06/03/19 06/03/19 06/03/19 10:20 13:15 15:19 Neutrophils % (Manual) Band Neutrophils % Lymphocytes % (Manual) Monocytes % (Manual) Eosinophils % (Manual) Basophils % (Manual) Myelocytes % (Man) Promyelocytes % (Man) Blast Cells % (Manual) Metamyelocytes Hypochromia Platelet Estimate Polychromasia Poikilocytosis Anisocytosis Microcytosis Macrocytosis Ovalocytes Sandy Cells Schistocytes Sodium 142 Potassium 5.6 H Chloride 115 H Carbon Dioxide 17 L Anion Gap 10 BUN 47.5 H Creatinine 3.3 H Est GFR (CKD-EPI)AfAm 15.83 Est GFR (CKD-EPI)NonAf 13.66 Random Glucose 115 H Lactic Acid 5.6 H* Calcium 8.7 Total Bilirubin AST ALT Alkaline Phosphatase Troponin I Total Protein Albumin Urine Color Yellow Urine Appearance Turbid Urine pH 5.0 Ur Specific [place] 1.013 Urine Protein Negative Urine Glucose (UA) Negative Urine Ketones Negative Urine Blood 3+ H Urine Nitrite Positive H Urine Bilirubin Negative Urine Urobilinogen 0.2 Ur Leukocyte Esterase 3+ H Urine WBC (Auto) 403 Urine RBC (Auto) 7.7 Urine Casts (Auto) 43 U Epithel Cells (Auto) 1.4 Urine Bacteria (Auto) 1274.7 06/03/19 06/03/19 20:28 21:30 Neutrophils % (Manual) Band Neutrophils % Lymphocytes % (Manual) Monocytes % (Manual) Eosinophils % (Manual) Basophils % (Manual) Myelocytes % (Man) Promyelocytes % (Man) Blast Cells % (Manual) Metamyelocytes Hypochromia Platelet Estimate Polychromasia Poikilocytosis Anisocytosis Microcytosis Macrocytosis Ovalocytes Sandy Cells Schistocytes Sodium 143 Potassium 5.8 H Chloride 116 H Carbon Dioxide 19 L Anion Gap 8 BUN 47.2 H Creatinine 3.2 H Est GFR (CKD-EPI)AfAm 16.43 Est GFR (CKD-EPI)NonAf 14.17 Random Glucose 126 H Lactic Acid 3.7 H* Calcium 8.5 Total Bilirubin AST ALT Alkaline Phosphatase Troponin I Total Protein Albumin Urine Color Urine Appearance Urine pH Ur Specific [place] Urine Protein Urine Glucose (UA) Urine Ketones Urine Blood Urine Nitrite Urine Bilirubin Urine Urobilinogen Ur Leukocyte Esterase Urine WBC (Auto) Urine RBC (Auto) Urine Casts (Auto) U Epithel Cells (Auto) Urine Bacteria (Auto) ASSESSMENT/PLAN: R/O Sepsis Dementia Chronic UTI HTN Decompensated HCV cirrhosis CHF COPD Hx of DVT Coagulopathy Strict I & O Judicious IVF NIPPV support ABX per ID Will need paracentesis Aspiration precautions Noted Medrol, low threshold to DC next 24 to 48 hours Hold Diuretics Abd US Palliative care evaluation ICU monitoring due to tenuous overall status Dr Valenzuela
--- NOTE | 2019-06-04 11:57 | PN ---
Progress Note, Physician History of Present Illness: Pt seen and examined at bedside. She remains in the ICU. She is awake but confused. - Current Medication List Current Medications: Active Medications Albuterol/Ipratropium (Duoneb -) 1 amp NEB RQ4H [facility] Last Admin: 06/04/19 07:20 Dose: 1 amp Calcium Acetate (Phoslo -) 667 mg PO TIDCM [facility] Last Admin: 06/03/19 19:00 Dose: 667 mg Chlorhexidine Gluconate (Hibiclens For Decolonization -) 1 applic TP HS [facility] Last Admin: 06/03/19 22:13 Dose: 1 applic Ergocalciferol (Drisdol -) 50,000 unit PO Q7D@1000 [facility] Famotidine (Acid Batch Mixer Operator) 10 mg PO DAILY [facility] Sodium Chloride (1/2 Normal Saline) 1,000 mls @ 125 mls/hr IV ASDIR [facility] Last Admin: 06/03/19 12:36 Dose: 125 mls/hr Meropenem 500 mg/ Dextrose 100 mls @ 200 mls/hr IVPB Q12H [facility] Last Admin: 06/04/19 04:33 Dose: 200 mls/hr Sodium Chloride (Normal Saline -) 250 mls @ 250 mls/hr IV ASDIR [facility] Stop: 06/04/19 12:31 Lactulose (Cephulac (Oral Use)) 30 gm PO QID [facility] Last Admin: 06/03/19 22:34 Dose: 30 gm Methylprednisolone Sodium Succinate (Solu-Medrol -) 40 mg IVPUSH Q6H-IV [facility] Last Admin: 06/04/19 09:25 Dose: 40 mg Midodrine (Proamatine -) 5 mg PO BID PRN PRN Reason: MAP<65mm Hg OR SBP <90 Last Admin: 06/03/19 23:47 Dose: 5 mg Mupirocin (Bactroban Ointment (For Decolonization) -) 1 applic NS BID [facility] Stop: 06/08/19 21:59 Last Admin: 06/03/19 22:12 Dose: Not Given Polyethylene Glycol (Miralax (For Daily Use) -) 17 gm PO BID PRN PRN Reason: CONSTIPATION Rifaximin (Xifaxan -) 550 mg PO BID [facility] Last Admin: 06/03/19 22:34 Dose: 550 mg - Objective Vital Signs: Vital Signs Temperature 97.9 F 06/04/19 06:00 Pulse Rate 78 06/04/19 06:00 Respiratory Rate 18 06/04/19 06:00 Blood Pressure 102/58 L 06/04/19 06:00 O2 Sat by Pulse Oximetry (%) 97 06/04/19 08:07 Constitutional: Yes: Mild Distress Eyes: Yes: Conjunctiva Clear Cardiovascular: Yes: S1, S2 Respiratory: Yes: On BiPap Gastrointestinal: Yes: Soft, Ascites Genitourinary: Yes: Laguerre Present Edema: Yes Edema: LLE: 1+, RLE: 1+ Integumentary: Yes: Petechiae Neurological: Yes: Confusion Labs: CBC, BMP 06/03/19 09:50 06/03/19 21:30 INR, PTT INR 2.82 (0.83-1.09) H 06/03/19 09:50 Problem List - Problems (1) Hyperkalemia Code(s): E87.5 - HYPERKALEMIA (2) Pneumonia Code(s): J18.9 - PNEUMONIA, UNSPECIFIED ORGANISM Qualifiers: Pneumonia type: due to unspecified organism Laterality: left Lung location: lower lobe of lung Qualified Code(s): J18.9 - Pneumonia, unspecified organism (3) Sepsis Code(s): A41.9 - SEPSIS, UNSPECIFIED ORGANISM Assessment/Plan Current Medications Generic Name Dose Route Start Last Admin Trade Name Freq PRN Reason Stop Dose Admin Albuterol/Ipratropium 1 amp 06/03/19 16:30 06/04/19 07:20 Duoneb - NEB 1 amp RQ4H [facility] Administration Calcium Acetate 667 mg 06/03/19 17:30 06/03/19 19:00 Phoslo - PO 667 mg TIDCM [facility] Administration Chlorhexidine Gluconate 1 applic 06/03/19 22:00 06/03/19 22:13 Hibiclens For Decolonization - TP 1 applic HS [facility] Administration Ergocalciferol 50,000 unit 06/10/19 10:00 Drisdol - PO Q7D@1000 [facility] Famotidine 10 mg 06/04/19 10:00 Acid Batch Mixer Operator PO DAILY [facility] Sodium Chloride 1,000 mls @ 125 mls/hr 06/03/19 12:15 06/03/19 12:36 1/2 Normal Saline IV 125 mls/hr ASDIR [facility] Administration Meropenem 500 mg/ Dextrose 100 mls @ 200 mls/hr 06/03/19 17:15 06/04/19 04:33 IVPB 200 mls/hr Q12H [facility] Administration Sodium Chloride 250 mls @ 250 mls/hr 06/04/19 11:32 Normal Saline - IV 06/04/19 12:31 ASDIR STA Lactulose 30 gm 06/03/19 18:00 06/03/19 22:34 Cephulac (Oral Use) PO 30 gm QID [facility] Administration Methylprednisolone Sodium Succinate 40 mg 06/03/19 21:00 06/04/19 09:25 Solu-Medrol - IVPUSH 40 mg Q6H-IV [facility] Administration Midodrine 5 mg 06/03/19 23:02 06/03/19 23:47 Proamatine - PO 5 mg BID PRN Administration MAP<65mm Hg OR SBP <90 Mupirocin 1 applic 06/03/19 22:00 06/03/19 22:12 Bactroban Ointment (For Decolonization) - NS 06/08/19 21:59 Not Given BID [facility] Polyethylene Glycol 17 gm 06/03/19 16:17 Miralax (For Daily Use) - PO BID PRN CONSTIPATION Rifaximin 550 mg 06/03/19 22:00 06/03/19 22:34 Xifaxan - PO 550 mg BID [facility] Administration Impression 1. DAVID 2. CKD 3. hep C cirrhosis 4. hyperkalemia 5. sepsis 6. ascites 7. hypervolemic hyponatremia 8. coagulopathy 9. hypernatremia 10. cryoglobulins PLAN - check labs to assess potassium - follow cxr - rheum eval called - pt is hypotensive, monitor bp, maintain map 65 if possible - cont bipap - prognosis is poor - cont abx - ICU monitoring
[2019-06-04] MEDS: FAMOTIDINE 10 MG TABLET PO SCH (12:00)
[2019-06-04] MEDS: MUPIROCIN 2% TOPICAL OINTMENT FOR DECOLONIZATION NS SCH ×2 (14:08→22:19)
[2019-06-04] MEDS: RIFAXIMIN 550 MG TABLET (UD) PO SCH ×2 (14:10→22:19)
[2019-06-04] MEDS: SODIUM CHLORIDE 0.45% 1,000 ML IV SCH ×2 (14:11→22:58)
--- NOTE | 2019-06-04 14:12 | PN ---
Progress Note (short form) - Note Progress Note: unable to obtain labs this am on bipap, didnot tolerate NRB mask Vital Signs Period Temp Pulse Resp BP Sys/Bolaños Pulse Ox Last 24 Hr 96.0 F-98.4 F 68-92 12-28 77-102/42-59 95-100 awake cor-rrr lungs decreased bs at bases abd firm, +ascities, NT today ext multiple ecchymoses CBC, BMP 06/03/19 09:50 06/03/19 21:30 Microbiology 06/03/19 15:30 Urine For Antigen Detection Legionella Antigen - Final 06/03/19 15:30 Urine For Antigen Detection Streptococcus pneumoniae Antigen (M - Final 06/03/19 09:40 Blood - Peripheral Venous Blood Culture - Preliminary NO GROWTH OBTAINED AFTER 24 HOURS, INCUBATION TO CONTINUE FOR 4 DAYS. 06/03/19 09:40 Blood - Peripheral Venous Blood Culture - Preliminary NO GROWTH OBTAINED AFTER 24 HOURS, INCUBATION TO CONTINUE FOR 4 DAYS. 06/03/19 10:20 Urine - Urine Laguerre Urine Culture - Preliminary Lactose Fermenting Neg Bacilli cxray left sided infiltrate liver sonogram- +ascites, no hydronephrosis a/p sepsis with lactic acidosis hypoxia, respiratory failure- on bipap left lung pneumonia UTI history of UTI -ecoli esbl in 05/07- warren on ckd liver cirrhosis with ascites continue meropenem continue isolation for labs today consider paracentesis
--- NOTE | 2019-06-04 14:48 | CONSULT ---
Admitting History and Physical - Primary Care Physician PCP: Anu Kc - Admission History of Present Illness: Per EMR 68yo F with PMH of dementia, chronic UTI, HTN, cirrhosis, metabolic encephalopathy, Hepatitis C, CHF, DVT on Eliquis sent by [facility] for evaluation of "sob, chf, ascities" and abnormal vitals signs Pt presents to the ED complaining of shortness of breath, fevers and productive cough. HYpoxic on room air for EMS with o2 sat of 88. Pt was extremely tachypneic, speaking in 2-3 word sentences. + diffuse wheezing. + abdominal distention. Presently, patient on BIPAP- unable to be titrated down to nasal cannula today. Mouth care difficult as pt becomes quite SOB, unable to tolerate NRB or NC. Selected Entries 06/04/19 06/04/19 06/04/19 02:00 06:00 13:36 Lunch NPO Temperature 98.4 F 97.9 F Laboratory Tests 06/03/19 09:50 WBC 11.2 H Seen by me during Apr 2019 admission, very congested, required puree/honey but Speech production and swallowing function improved during hospitalization. MBS- 04/29/19-impaired mastication, delayed swallow, with aspiration risk. Advanced to nectar thick liquids. 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 Cardiovascular: Yes: HTN, Murmur Gastrointestinal: Yes: Other (cirrhosis) Hepatobiliary: Yes: Cirrhosis, Hepatitis C Infectious Disease: Yes: Other (hep c) Psych: Yes: Anxiety, Other ENT: Yes: Other (hearing loss--uses hearing aides) - Smoking History Smoking history: Never smoked Have you smoked in the past 12 months: No - Alcohol/Substance Use Hx Alcohol Use: No History of Substance Use: reports: None - Social History ADL: Family Assistance History of Recent Travel: No History - Admission Reason For Visit: UTI,PNEUMONIA - Diagnostics X-ray: Report Reviewed - General Mental Status: Awake and Alert, Able to Follow Commands - Hearing Hearing: Impaired Hearing Aide: Yes With Patient: No Speech Evaluation - Communication Primary Language: [place] Communication: Yes: Simple Responses - Speech Production Apraxia: No - Speech Characteristics Articulation: Yes: Precise - Language/Auditory Comprehension Observation: Comprehends Conversational Speech: Yes - Swallow Evaluation/Bedside Assessment Current Nutritional Intake: NPO Recommendations - Speech Evaluation, Impression/Plan Impression: Unable to tolerate weaning from BIPAP to NC/NRB. Increased risk aspiration to trial PO and place BIPAP to airway. Staff unable to achieve good mouthcare sec to SOB, with BIPAP removed. - Dysphagia Impressions/Plan Dysphagia Impressions: Risk of Aspiration *Silent aspiration: cannot be R/O at bedside Recommendations: Palliative Care (Pt is a full code. Reviewed with Medicine. Being addressed.), Other (To reassess as pulmonary function improves. Clinimix, if not contraindicated and line established) - Recommendations Diet Consistency: NPO Liquids: NPO
[2019-06-04 15:45] LABS: BASO % 0.4 % (0-2.0); HEMATOCRIT 25.7 % (32.4-45.2); HEMOGLOBIN 8.1 GM/dL (10.7-15.3); LYMPH % 2.1 % (8-40); MCH 31.7 pg (25.7-33.7); MCHC 31.6 g/dl (32.0-36.0); MEAN CELL VOLUME 100.2 fl (80-96); MEAN PLT VOLUME 10.7 fl (7.5-11.1); MONO % 3.3 % (3.8-10.2); NEUT % 94.2 % (42.8-82.8); PLATELET COUNT 52 K/MM3 (134-434); RBC 2.57 M/mm3 (3.60-5.2); RDW 18.5 % (11.6-15.6); WHITE BLOOD COUNT 14.8 K/mm3 (4.0-10.0)
--- NOTE | 2019-06-04 15:46 | PN ---
Physical Exam: SUBJECTIVE: Patient seen and examined in the morning. No acute events overnight. No events on cardiac monitoring. Patient has no complaints of chest pain, abdominal pain, nausea, vomiting, diarrhea. OBJECTIVE: Vital Signs Period Temp Pulse Resp BP Sys/Bolaños Pulse Ox Last 24 Hr 96.0 F-98.4 F 68-90 12-28 77-102/42-59 95-100 GENERAL: Awake and alert, on NIPPV. HEENT: atraumatic, normocephalic NECK: +JVD. LUNGS: Tachypneic. B/l scattered wheezes, fine crackles noted. HEART: S1 S2 present. No murmurs rubs or gallups. ABDOMEN: Distended, +fluid shift. +caput medusae. MUSCULOSKELETAL: Normal range of motion at all joints. No bony deformities or tenderness. No CVA tenderness. EXTREMITIES: 2+ pulses, warm, well-perfused. No cyanosis. No clubbing. Cap refill <2 seconds. Scattered ecchymosis noted on b/l upper extremities. 2+ pitting edema on lower extremities SKIN: Warm, dry, thin skin. Laboratory Results - last 24 hr 06/03/19 06/03/19 06/03/19 15:19 20:28 21:30 Sodium 142 143 Potassium 5.6 H 5.8 H Chloride 115 H 116 H Carbon Dioxide 17 L 19 L Anion Gap 10 8 BUN 47.5 H 47.2 H Creatinine 3.3 H 3.2 H Est GFR (CKD-EPI)AfAm 15.83 16.43 Est GFR (CKD-EPI)NonAf 13.66 14.17 Random Glucose 115 H 126 H Lactic Acid 3.7 H* Calcium 8.7 8.5 Active Medications Generic Name Dose Route Start Last Admin Trade Name Freq PRN Reason Stop Dose Admin Albuterol/Ipratropium 1 amp 06/03/19 16:30 06/04/19 11:20 Duoneb - NEB 1 amp RQ4H RADHA Administration Calcium Acetate 667 mg 06/03/19 17:30 06/04/19 14:07 Phoslo - PO Not Given TIDCM RADHA Chlorhexidine Gluconate 1 applic 06/03/19 22:00 06/03/19 22:13 Hibiclens For Decolonization - TP 1 applic HS RADHA Administration Ergocalciferol 50,000 unit 06/10/19 10:00 Drisdol - PO Q7D@1000 RADHA Famotidine 10 mg 06/04/19 10:00 06/04/19 12:00 Acid Automotive Maintenance Technician PO Not Given DAILY [facility] Sodium Chloride 1,000 mls @ 125 mls/hr 06/03/19 12:15 06/04/19 14:11 1/2 Normal Saline IV 125 mls/hr ASDIR RADHA Administration Meropenem 500 mg/ Dextrose 100 mls @ 200 mls/hr 06/03/19 17:15 06/04/19 04:33 IVPB 200 mls/hr Q12H RADHA Administration Lactulose 30 gm 06/03/19 18:00 06/04/19 10:00 Cephulac (Oral Use) PO Not Given QID [facility] Methylprednisolone Sodium Succinate 40 mg 06/03/19 21:00 06/04/19 09:25 Solu-Medrol - IVPUSH 40 mg Q6H-IV RADHA Administration Midodrine 5 mg 06/03/19 23:02 06/03/19 23:47 Proamatine - PO 5 mg BID PRN Administration MAP<65mm Hg OR SBP <90 Mupirocin 1 applic 06/03/19 22:00 06/04/19 14:08 Bactroban Ointment (For Decolonization) - NS 06/08/19 21:59 1 applic BID RADHA Administration Polyethylene Glycol 17 gm 06/03/19 16:17 Miralax (For Daily Use) - PO BID PRN CONSTIPATION Rifaximin 550 mg 06/03/19 22:00 06/04/19 14:10 Xifaxan - PO Not Given BID [facility] ASSESSMENT/PLAN: 68F PMH dementia, chronic UTI, HTN, decompensated HCV cirrhosis, CHF, COPD, DVT , who presents with acute hypoxic respiratory failure. Pulm -Acute Hypoxic respiratory failure. -Meropenem 500 mg IV -BiPAP -Duonebs PRN -Solu-Medrol 40 mg Q6H IV ID -Sepsis 2/2 HCAP/UTI (hx of ESBL UTI) -Meropenem D -CXR showed L sided infiltrates -UA+ for nitrite, 3+ LE, 403 WBCs; UCx/BCx pending -ID consulted, appreciate recs CV -Hx of CHF -Currently stable. -Holding diuretics as patient need IV fluid hydration -Given bolus of 250 ml NS today as patient was hypotensive in the morning. GI -Hx of Decompensated HCV Cirrhosis -Abdominal U/S shows ascites present. -IR consult for paracentesis. -GI consulted Renal -CKD -Hx of ESBL UTI -Nephro consulted -1/2NS @ 125 -Cont IV abx Heme -Thrombocytopenia, likely 2/2 chronic disease in setting of cirrhosis/renal failure/sepsis -Was previously on Eliquis but was d/c'd due to nosebleed -Hold heparin products Neuro -Stable. Awake and alert. -Cont to monitor neuro status DVT Prophylaxis: SCDS GI prophylaxis: Famotidine 10 mg PO Daily F: 1/2 NS @125 ml/hr E: Monitor CMP N: NPO as patient unable to stay off of BiPAP machine to eat. Dispo: Monitoring in ICU . Visit type - Emergency Visit Emergency Visit: Yes ED Registration Date: 06/03/19 Care time: The patient presented to the Emergency Department on the above date and was hospitalized for further evaluation of their emergent condition. - New Patient This patient is new to me today: Yes Date on this admission: 06/04/19 - Critical Care Critical Care patient: Yes Total Critical Care Time (in minutes): 45 Critical Care Statement: The care of this patient involved high complexity decision making to prevent further life threatening deterioration of the patient 's condition and/or to evaluate & treat vital organ system(s) failure or risk of failure. ATTENDING PHYSICIAN STATEMENT I saw and evaluated the patient. I reviewed the resident's note and discussed the case with the resident. I agree with the resident's findings and plan as documented. SUBJECTIVE: OBJECTIVE: ASSESSMENT AND PLAN:
[2019-06-04 16:23] LABS: ALBUMIN 1.8 g/dl (3.4-5.0); BILIRUBIN,TOTAL 1.8 mg/dL (0.2-1); BLOOD UREA NITROGEN 50.3 mg/dL (7-18); CALCIUM 8.6 mg/dL (8.5-10.1); CREATININE 3.2 mg/dL (0.55-1.3); MAGNESIUM 2.1 mg/dL (1.8-2.4); PHOSPHOROUS 4.4 mg/dL (2.5-4.9); POTASSIUM 5.1 mmol/L (3.5-5.1); TOT PROT 4.9 g/dl (6.4-8.2)
[2019-06-04] MEDS: MIDODRINE HCL 5 MG TABLET PO PRN (16:37)
--- NOTE | 2019-06-04 16:42 | CON.GI ---
Consult Consult Specialty:: GI Referred by:: Hospitalist Service Reason for Consultation:: Ascites - History of Present Illness Chief Complaint: Shortness of breath, cough History of Present Illness: 68F admitted through [facility] ER from [facility] for evaluation of SOB. On FM O2 and BIPAP. Being treated for possible PNA. Asked to evaluate ascites. Had paracentesis last admission. No SBP. Has had multiple hospital admissions. Denies abdominal pain. She is on A/C for ? DVT and in other noted iI read PVT. No overt bleeding described. Being treated for left lung PNA and UTI. Ammonia level was <10 - History Source History Provided By: Family Member, Medical Record - Past Medical History SAMPLE CARRIER: Yes: Dementia Cardio/Vascular: Yes: HTN, Murmur Gastrointestinal: Yes: Other (cirrhosis) Hepatobiliary: Yes: Cirrhosis, Hepatitis C Infectious Disease: Yes: Other (hep c) Psych: Yes: Anxiety, Other ENT: Yes: Other (hearing loss--uses hearing aides) Additional Medical History: makah uses hearing aide. no documented history of tb or hepatitis - Past Surgical History Additional Surgical History: Denies - Alcohol/Substance Use Hx Alcohol Use: Yes (In past) History of Substance Use: reports: Prescription (In past) - Smoking History Smoking history: Never smoked Have you smoked in the past 12 months: No - Social History Usual Living Arrangement: Senior [facility] History of Recent Travel: No Home Medications - Allergies Allergies/Adverse Reactions: Allergies Allergy/AdvReac Type Severity Reaction Status Date / Time No Known Allergies Allergy Verified 06/03/19 10:34 - Home Medications Home Medications: Ambulatory Orders Ergocalciferol [Vitamin D2] 50,000 unit PO Q7D@1000 #4 capsule 01/14/19 Apixaban [Eliquis] 2.5 mg PO BID 04/20/19 Calcium Acetate [Phoslo -] 667 mg PO TIDCM capsule 05/09/19 Famotidine [Pepcid -] 20 mg PO BID tablet 05/09/19 Midodrine HCl [Proamatine -] 5 mg PO BID PRN tablet 05/09/19 Ondansetron [Zofran -] 4 mg PO TID PRN #30 tab 05/09/19 Rifaximin [Xifaxan -] 550 mg PO BID #30 tablet 05/09/19 Acetaminophen [Tylenol] 325 mg PO PRN PRN 12/16/19 Albuterol 2.5/Ipratropium 0.5 [Duoneb -] 1 neb NEB Q4H 06/03/19 Furosemide Injection [Lasix Injection -] 60 mg IVPB DAILY PRN 06/03/19 Lactulose (Oral Use) [Cephulac -] 30 gm PO QID 06/03/19 Moxifloxacin HCl [Moxifloxacin] 3 ml OP TID 06/03/19 Polyethylene Glycol 3350 [Miralax 119 gm Btl -] 17 gm PO BID PRN 06/03/19 Potassium Chloride 40 meq PO DAILY 06/03/19 Torsemide [Demadex -] 20 mg PO ASDIR 06/03/19 Torsemide [Demadex -] 20 mg PO Q2D 06/03/19 Family Medical History Other Family History: No family history of liver disease or cancer Review of Systems - Review of Systems Cardiovascular: denies: Chest Pain Respiratory: reports: Cough, SOB Gastrointestinal: denies: Abdominal Pain Physical Exam-GI Vital Signs: Vital Signs Temperature 97.4 F L 06/04/19 14:00 Pulse Rate 77 06/04/19 14:00 Respiratory Rate 29 H 06/04/19 14:00 Blood Pressure 98/56 L 06/04/19 14:00 O2 Sat by Pulse Oximetry (%) 95 06/04/19 16:19 Constitutional: Yes: Calm Eyes: No: Sclera Icterus Cardiovascular: Yes: Other (Heart sounds obscured by upper airway noise) Respiratory: Yes: Rhonchi, Wheezes (noted on anterior exam, left lung) ...Auscultate: Yes: Normoactive Bowel Sounds ...Palpate: Yes: Soft. No: Hepatomegaly, Splenomegaly, Tenderness ...Percussion: No: Tympanitic Neurological: Yes: Alert, Oriented (x person, place). No: Asterixis Labs: CBC, BMP 06/04/19 14:30 06/04/19 14:30 INR, PTT INR 2.82 (0.83-1.09) H 06/03/19 09:50 Imaging - Results Ultrasound: Report Reviewed (large ascites) Problem List - Problems (1) Ascites Assessment/Plan: Decompensated HCV/Likely ETOH cirrhosis Ordered abdominal paracentesis with fluid studies as outlined in order section 2g low sodium diet Lactulose 20g TID. Titrate for 3-4 loose BM's per day. Evaluation for alternate causes of confusion per primary team Care per primary team and critical care Goals of care need to be clarified Code(s): R18.8 - OTHER ASCITES
[2019-06-04 17:18] LABS: INR 3.33 (0.83-1.09); PROTHROMBIN TIME (PATIENT) 39.8 SEC (9.7-13.0)
[2019-06-04 17:27] LABS: ANISOCYTOSIS 1+; MACROCYTOSIS 1+
[2019-06-04 17:28] LABS: OVALOCYTE 1+; PLATELET ESTIMATE DECREASED
[2019-06-04] MEDS: CHLORHEXIDINE GLUCONATE 4% CLEANSER FOR DECOLONIZATION TP SCH (22:19)
[2019-06-04] MEDS ORDERED: MIDODRINE HCL 5 MG TABLET PO ONE (23:05)
[2019-06-05] MEDS: MIDODRINE HCL 5 MG TABLET PO PRN ×2 (01:48→14:22)
[2019-06-05] MEDS: methylPREDNISolone NA SUCC 40 MG/1 ML VIAL IVPUSH SCH ×4 (02:38→21:44)
[2019-06-05] MEDS: ALBUTEROL SO4 2.5/IPRATROPIUM 0.5 INH SOL 3 ML VIAL.NEB. NEB SCH ×5 (03:21→20:30)
[2019-06-05] MEDS ORDERED: MEROPENEM 500 MG VIAL (RESTRICTED TO ID) IVPB ONE ×2 (04:27→16:35)
[2019-06-05] MEDS ORDERED: DEXTROSE 5%-WATER 100 ML IVPB ONE ×2 (04:27→16:36)
[2019-06-05] MEDS: MEROPENEM 500 MG in DEXTROSE 5%-WATER 100 ML IVPB SCH ×2 (04:30→16:55)
[2019-06-05] MEDS: LACTULOSE 20 GM/30 ML UDC (FOR ORAL USE ONLY) PO SCH ×3 (05:50→21:45)
[2019-06-05] MEDS: SODIUM CHLORIDE 0.45% 1,000 ML IV SCH (05:58)
[2019-06-05 08:06] LABS: BASO % 0.1 % (0-2.0); HEMATOCRIT 23.7 % (32.4-45.2); HEMOGLOBIN 7.5 GM/dL (10.7-15.3); LYMPH % 2.1 % (8-40); MCH 31.9 pg (25.7-33.7); MCHC 31.5 g/dl (32.0-36.0); MEAN CELL VOLUME 101.3 fl (80-96); MEAN PLT VOLUME 10.9 fl (7.5-11.1); MONO % 2.9 % (3.8-10.2); NEUT % 94.9 % (42.8-82.8); PLATELET COUNT 55 K/MM3 (134-434); RBC 2.34 M/mm3 (3.60-5.2); RDW 18.3 % (11.6-15.6)
[2019-06-05 08:17] LABS: ALBUMIN 1.4 g/dl (3.4-5.0); BILIRUBIN,DIRECT 0.9 mg/dL (0.0-0.2); BILIRUBIN,TOTAL 1.4 mg/dL (0.2-1); BLOOD UREA NITROGEN 44.7 mg/dL (7-18); CALCIUM 7.1 mg/dL (8.5-10.1); CREATININE 2.9 mg/dL (0.55-1.3); MAGNESIUM 1.8 mg/dL (1.8-2.4); PHOSPHOROUS 4.1 mg/dL (2.5-4.9); POTASSIUM 4.5 mmol/L (3.5-5.1); TOT PROT 4.1 g/dl (6.4-8.2)
--- NOTE | 2019-06-05 09:06 | PN ---
Progress Note (short form) - Note Progress Note: switched to NRB mask more awake today congested asking for juice Vital Signs Period Temp Pulse Resp BP Sys/Bolaños Pulse Ox Last 24 Hr 97.2 F-97.8 F 72-87 17-29 77-98/41-71 95-100 cor-rrr lungs bilateral rhonchi abd soft, +ascites, NT ext +edema, +ecchymoses CBC, BMP 06/05/19 05:55 06/05/19 05:55 Microbiology 06/03/19 15:30 Urine For Antigen Detection Legionella Antigen - Final 06/03/19 15:30 Urine For Antigen Detection Streptococcus pneumoniae Antigen (M - Final 06/03/19 09:40 Blood - Peripheral Venous Blood Culture - Preliminary NO GROWTH OBTAINED AFTER 24 HOURS, INCUBATION TO CONTINUE FOR 4 DAYS. 06/03/19 09:40 Blood - Peripheral Venous Blood Culture - Preliminary NO GROWTH OBTAINED AFTER 24 HOURS, INCUBATION TO CONTINUE FOR 4 DAYS. 06/03/19 10:20 Urine - Urine Laguerre Urine Culture - Preliminary Lactose Fermenting Neg Bacilli a/p sepsis with lactic acidosis hypoxia, respiratory failure- on bipap left lung pneumonia UTI warren on ckd-improved liver cirrhosis with ascites continue meropenem for pneumonia and UTI ?paracentesis palliative care eval ordered overall prognosis is guarded Problem List - Problems (1) Sepsis Code(s): A41.9 - SEPSIS, UNSPECIFIED ORGANISM (2) Respiratory failure Code(s): J96.90 - RESPIRATORY FAILURE, UNSP, UNSP W HYPOXIA OR HYPERCAPNIA (3) Pneumonia Code(s): J18.9 - PNEUMONIA, UNSPECIFIED ORGANISM (4) Urinary tract infection Code(s): N39.0 - URINARY TRACT INFECTION, SITE NOT SPECIFIED Qualifiers: Urinary tract infection type: site unspecified Hematuria presence: with hematuria Qualified Code(s): N39.0 - Urinary tract infection, site not specified; R31.9 - Hematuria, unspecified (5) 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 Code(s): B18.2 - CHRONIC VIRAL HEPATITIS C; K74.60 - UNSPECIFIED CIRRHOSIS OF LIVER (6) Acute kidney injury superimposed on CKD Code(s): N17.9 - ACUTE KIDNEY FAILURE, UNSPECIFIED; N18.9 - CHRONIC KIDNEY DISEASE, UNSPECIFIED (7) Acute renal failure Code(s): N17.9 - ACUTE KIDNEY FAILURE, UNSPECIFIED (8) History of ESBL E. coli infection Code(s): Z86.19 - PERSONAL HISTORY OF OTHER INFECTIOUS AND PARASITIC DISEASES
[2019-06-05] MEDS: CALCIUM ACETATE 667 MG CAPSULE (FP) PO SCH ×3 (10:04→19:20)
[2019-06-05] MEDS: FAMOTIDINE 10 MG TABLET PO SCH (10:04)
[2019-06-05] MEDS: RIFAXIMIN 550 MG TABLET (UD) PO SCH ×2 (10:04→21:44)
[2019-06-05] MEDS: MUPIROCIN 2% TOPICAL OINTMENT FOR DECOLONIZATION NS SCH ×2 (10:18→21:44)
[2019-06-05 10:49] LABS: ANISOCYTOSIS 2+; MACROCYTOSIS 0; PLATELET ESTIMATE DECREASED
--- NOTE | 2019-06-05 10:55 | PN.GI ---
GI Progress Note Subjective: Pt seen/examined at bedside, awake/alert, confused, asking for something to drink. Denies abdominal pain. Loose brown bm noted this am. - Objective Vital Signs: Vital Signs Temperature 97.6 F 06/05/19 10:01 Pulse Rate 74 06/05/19 10:01 Respiratory Rate 22 H 06/05/19 10:01 Blood Pressure 84/43 L 06/05/19 10:01 O2 Sat by Pulse Oximetry (%) 96 06/05/19 08:19 Constitutional: No Distress, Calm Cardiovascular: Yes: WNL, Regular Rate and Rhythm Respiratory: Yes: WNL, Regular, Diminished, Other (on NRB) ...Palpate: Yes: Other (Abd softly distended, no tenderness elicited) Labs: CBC, BMP 06/05/19 05:55 06/05/19 05:55 INR, PTT INR 3.33 (0.83-1.09) H 06/04/19 14:30 Problem List - Problems (1) 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 Assessment/Plan: 68yo female h/o dementia, COPD, HCV/etoh cirrhosis presenting with shortness of breath being treated for left lower lobe pneumonia and UTI/sepsis. US revealing large ascites. Paracentesis not yet done. -Continue optimization from a respiratory standpoint -Management of pneumonia and UTI per primary team -Follow up cultures -Monitor and correct coagulopathy -Paracentesis when feasible and pt stabilized (studies as previously ordered) -Lactulose 20g tid titrate to 3-4 loose BMs/day -Continue goals of care discussion, palliative care consult pending Discussed with MICU resident Code(s): B18.2 - CHRONIC VIRAL HEPATITIS C; K74.60 - UNSPECIFIED CIRRHOSIS OF LIVER
--- NOTE | 2019-06-05 11:11 | PN ---
Progress Note, Physician History of Present Illness: Pt seen and examined at bedside. She is more awake and interactive today. - Current Medication List Current Medications: Active Medications Albuterol/Ipratropium (Duoneb -) 1 amp NEB RQ4H [facility] Last Admin: 06/05/19 03:21 Dose: 1 amp Calcium Acetate (Phoslo -) 667 mg PO TIDCM [facility] Last Admin: 06/05/19 10:04 Dose: Not Given Chlorhexidine Gluconate (Hibiclens For Decolonization -) 1 applic TP HS [facility] Last Admin: 06/04/19 22:19 Dose: 1 applic Ergocalciferol (Drisdol -) 50,000 unit PO Q7D@1000 RADHA Famotidine (Acid Hospitality Manager) 10 mg PO DAILY [facility] Last Admin: 06/05/19 10:04 Dose: Not Given Sodium Chloride (1/2 Normal Saline) 1,000 mls @ 125 mls/hr IV ASDIR [facility] Last Admin: 06/05/19 05:58 Dose: 125 mls/hr Meropenem 500 mg/ Dextrose 100 mls @ 200 mls/hr IVPB Q12H [facility] Last Admin: 06/05/19 04:30 Dose: 200 mls/hr Lactulose (Cephulac (Oral Use)) 20 gm PO TID [facility] Last Admin: 06/05/19 05:50 Dose: Not Given Methylprednisolone Sodium Succinate (Solu-Medrol -) 40 mg IVPUSH Q6H-IV RADHA Last Admin: 06/05/19 10:07 Dose: 40 mg Midodrine (Proamatine -) 5 mg PO BID PRN PRN Reason: MAP<65mm Hg OR SBP <90 Last Admin: 06/05/19 01:48 Dose: 5 mg Mupirocin (Bactroban Ointment (For Decolonization) -) 1 applic NS BID [facility] Stop: 06/08/19 21:59 Last Admin: 06/05/19 10:18 Dose: 1 applic Polyethylene Glycol (Miralax (For Daily Use) -) 17 gm PO BID PRN PRN Reason: CONSTIPATION Rifaximin (Xifaxan -) 550 mg PO BID [facility] Last Admin: 06/05/19 10:04 Dose: Not Given - Objective Vital Signs: Vital Signs Temperature 97.6 F 06/05/19 10:01 Pulse Rate 69 06/05/19 11:03 Respiratory Rate 22 H 06/05/19 10:01 Blood Pressure 84/43 L 06/05/19 10:01 O2 Sat by Pulse Oximetry (%) 92 L 06/05/19 11:03 Constitutional: Yes: Calm Eyes: Yes: Conjunctiva Clear HENT: Yes: Atraumatic Cardiovascular: Yes: S1, S2 Respiratory: Yes: On Venti-Mask Gastrointestinal: Yes: Ascites Genitourinary: Yes: Laguerre Present Musculoskeletal: Yes: Muscle Weakness Edema: Yes Edema: LLE: 2+, RLE: 2+ Integumentary: Yes: Bruising, Skin Tear Neurological: Yes: Confusion Labs: CBC, BMP 06/05/19 05:55 06/05/19 05:55 INR, PTT INR 3.33 (0.83-1.09) H 06/04/19 14:30 Problem List - Problems (1) Hyperkalemia Code(s): E87.5 - HYPERKALEMIA (2) Pneumonia Code(s): J18.9 - PNEUMONIA, UNSPECIFIED ORGANISM Qualifiers: Pneumonia type: due to unspecified organism Laterality: left Lung location: lower lobe of lung Qualified Code(s): J18.9 - Pneumonia, unspecified organism (3) Sepsis Code(s): A41.9 - SEPSIS, UNSPECIFIED ORGANISM Assessment/Plan Current Medications Generic Name Dose Route Start Last Admin Trade Name Freq PRN Reason Stop Dose Admin Albuterol/Ipratropium 1 amp 06/03/19 16:30 06/05/19 03:21 Duoneb - NEB 1 amp RQ4H RADHA Administration Calcium Acetate 667 mg 06/03/19 17:30 06/05/19 10:04 Phoslo - PO Not Given TIDCM RADHA Chlorhexidine Gluconate 1 applic 06/03/19 22:00 06/04/19 22:19 Hibiclens For Decolonization - TP 1 applic HS RADHA Administration Ergocalciferol 50,000 unit 06/10/19 10:00 Drisdol - PO Q7D@1000 RADHA Famotidine 10 mg 06/04/19 10:00 06/05/19 10:04 Acid Hospitality Manager PO Not Given DAILY [facility] Sodium Chloride 1,000 mls @ 125 mls/hr 06/03/19 12:15 06/05/19 05:58 1/2 Normal Saline IV 125 mls/hr ASDIR RADHA Administration Meropenem 500 mg/ Dextrose 100 mls @ 200 mls/hr 06/03/19 17:15 06/05/19 04:30 IVPB 200 mls/hr Q12H RADHA Administration Lactulose 20 gm 06/04/19 20:45 06/05/19 05:50 Cephulac (Oral Use) PO Not Given TID [facility] Methylprednisolone Sodium Succinate 40 mg 06/03/19 21:00 06/05/19 10:07 Solu-Medrol - IVPUSH 40 mg Q6H-IV RADHA Administration Midodrine 5 mg 06/03/19 23:02 06/05/19 01:48 Proamatine - PO 5 mg BID PRN Administration MAP<65mm Hg OR SBP <90 Mupirocin 1 applic 06/03/19 22:00 06/05/19 10:18 Bactroban Ointment (For Decolonization) - NS 06/08/19 21:59 1 applic BID RADHA Administration Polyethylene Glycol 17 gm 06/03/19 16:17 Miralax (For Daily Use) - PO BID PRN CONSTIPATION Rifaximin 550 mg 06/03/19 22:00 06/05/19 10:04 Xifaxan - PO Not Given BID [facility] Impression 1. DAVID 2. CKD 3. hep C cirrhosis 4. hyperkalemia 5. sepsis 6. ascites 7. hypervolemic hyponatremia 8. coagulopathy 9. hypernatremia 10. cryoglobulins PLAN - potassium is improved - repeat labs in am - GI input appreciated - consider paracentesis with albumin - rheum eval for cryos pending - pt is hypotensive, monitor bp, maintain map 65 if possible - prognosis is poor - cont abx - caution with fluids - ICU monitoring
--- NOTE | 2019-06-05 11:13 | PN ---
Progress Note, Physician - Current Medication List Current Medications: Active Medications Albuterol/Ipratropium (Duoneb -) 1 amp NEB RQ4H [facility] Last Admin: 06/05/19 03:21 Dose: 1 amp Calcium Acetate (Phoslo -) 667 mg PO TIDCM [facility] Last Admin: 06/05/19 10:04 Dose: Not Given Chlorhexidine Gluconate (Hibiclens For Decolonization -) 1 applic TP HS [facility] Last Admin: 06/04/19 22:19 Dose: 1 applic Ergocalciferol (Drisdol -) 50,000 unit PO Q7D@1000 RADHA Famotidine (Acid Sanitary Landfill Operator) 10 mg PO DAILY [facility] Last Admin: 06/05/19 10:04 Dose: Not Given Sodium Chloride (1/2 Normal Saline) 1,000 mls @ 125 mls/hr IV ASDIR [facility] Last Admin: 06/05/19 05:58 Dose: 125 mls/hr Meropenem 500 mg/ Dextrose 100 mls @ 200 mls/hr IVPB Q12H [facility] Last Admin: 06/05/19 04:30 Dose: 200 mls/hr Lactulose (Cephulac (Oral Use)) 20 gm PO TID [facility] Last Admin: 06/05/19 05:50 Dose: Not Given Methylprednisolone Sodium Succinate (Solu-Medrol -) 40 mg IVPUSH Q6H-IV [facility] Last Admin: 06/05/19 10:07 Dose: 40 mg Midodrine (Proamatine -) 5 mg PO BID PRN PRN Reason: MAP<65mm Hg OR SBP <90 Last Admin: 06/05/19 01:48 Dose: 5 mg Mupirocin (Bactroban Ointment (For Decolonization) -) 1 applic NS BID [facility] Stop: 06/08/19 21:59 Last Admin: 06/05/19 10:18 Dose: 1 applic Polyethylene Glycol (Miralax (For Daily Use) -) 17 gm PO BID PRN PRN Reason: CONSTIPATION Rifaximin (Xifaxan -) 550 mg PO BID [facility] Last Admin: 06/05/19 10:04 Dose: Not Given - Objective Vital Signs: Vital Signs Temperature 97.6 F 06/05/19 10:01 Pulse Rate 69 06/05/19 11:03 Respiratory Rate 22 H 06/05/19 10:01 Blood Pressure 84/43 L 06/05/19 10:01 O2 Sat by Pulse Oximetry (%) 92 L 06/05/19 11:03 Cardiovascular: Yes: S1, S2 Respiratory: Yes: On Venti-Mask, Rhonchi Gastrointestinal: Yes: Normal Bowel Sounds, Soft, Ascites, Distention Labs: CBC, BMP 06/05/19 05:55 06/05/19 05:55 INR, PTT INR 3.33 (0.83-1.09) H 06/04/19 14:30 Assessment/Plan - Problems (1) Sepsis Assessment/Plan: iv abx hydration monitor respiratory status bipap for now-on VM now monitor BP keep MAP> 65 repeat labs ICU CARE bronchodilators Code(s): A41.9 - SEPSIS, UNSPECIFIED ORGANISM (2) Hyperkalemia/warren/ckd Assessment/Plan: cocktail given in ER repeat labs--improved renal on case mopnitor labs (3) Pneumonia Assessment/Plan: ID eval icu management for respiratory status bipap for now broad spectrum iv abx stress dose steroids monitor lactate Code(s): J18.9 - PNEUMONIA, UNSPECIFIED ORGANISM Qualifiers: Pneumonia type: due to unspecified organism Laterality: left Lung location: lower lobe of lung Qualified Code(s): J18.9 - Pneumonia, unspecified organism (4) Ascites Assessment/Plan: with coagulopathy given ffp and vitamin K paracentesis per gi abdominal ultrasound Code(s): R18.8 - OTHER ASCITES Qualifiers: Ascites type: other type Qualified Code(s): R18.8 - Other ascites (5) 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
[2019-06-05] MEDS ORDERED: SODIUM CHLORIDE 0.45% 1,000 ML IV SCH (11:30)
--- NOTE | 2019-06-05 13:14 | PN ---
Teaching Attending Note Name of Resident: Tenzin Cohen ATTENDING PHYSICIAN STATEMENT I saw and evaluated the patient. I reviewed the resident's note and discussed the case with the resident. I agree with the resident's findings and plan as documented. SUBJECTIVE: Pt seen and examined in the ICU. Borderline hypotensive this AM. Still tachypneic. No fevers recorded. Placed on HFOT this AM. OBJECTIVE: Vital Signs Period Temp Pulse Resp BP Sys/Bolaños Pulse Ox Last 24 Hr 97.2 F-97.8 F 69-87 18-29 81-98/41-71 86-100 Intake & Output 06/02/19 06/03/19 06/04/19 06/05/19 23:59 23:59 23:59 23:59 Intake Total 1500 3125 1457 Output Total 210 700 Balance 1290 2425 1457 Weight 72.62 kg 76.7 kg Gen: tachypneic at rest Heart: RRR Lung: scattered rhonchi Abd: softly distended Ext: ecchymotic, + edema CBC, BMP 06/05/19 05:55 06/05/19 05:55 Active Medications Albuterol/Ipratropium (Duoneb -) 1 amp NEB RQ4H [facility] Last Admin: 06/05/19 12:43 Dose: 1 amp Calcium Acetate (Phoslo -) 667 mg PO TIDCM [facility] Last Admin: 06/05/19 10:04 Dose: Not Given Chlorhexidine Gluconate (Hibiclens For Decolonization -) 1 applic TP HS [facility] Last Admin: 06/04/19 22:19 Dose: 1 applic Ergocalciferol (Drisdol -) 50,000 unit PO Q7D@1000 [facility] Famotidine (Acid Criminal Investigative Agent) 10 mg PO DAILY [facility] Last Admin: 06/05/19 10:04 Dose: Not Given Meropenem 500 mg/ Dextrose 100 mls @ 200 mls/hr IVPB Q12H [facility] Last Admin: 06/05/19 04:30 Dose: 200 mls/hr Sodium Chloride (1/2 Normal Saline) 1,000 mls @ 75 mls/hr IV ASDIR [facility] Lactulose (Cephulac (Oral Use)) 20 gm PO TID [facility] Last Admin: 06/05/19 05:50 Dose: Not Given Methylprednisolone Sodium Succinate (Solu-Medrol -) 40 mg IVPUSH Q6H-IV [facility] Last Admin: 06/05/19 10:07 Dose: 40 mg Midodrine (Proamatine -) 5 mg PO BID PRN PRN Reason: MAP<65mm Hg OR SBP <90 Last Admin: 06/05/19 01:48 Dose: 5 mg Mupirocin (Bactroban Ointment (For Decolonization) -) 1 applic NS BID [facility] Stop: 06/08/19 21:59 Last Admin: 06/05/19 10:18 Dose: 1 applic Nystatin (Mycostatin Ointment -) 1 applic TP BID [facility] Phytonadione (Mephyton -) 5 mg PO DAILY [facility] Polyethylene Glycol (Miralax (For Daily Use) -) 17 gm PO BID PRN PRN Reason: CONSTIPATION Rifaximin (Xifaxan -) 550 mg PO BID [facility] Last Admin: 06/05/19 10:04 Dose: Not Given ASSESSMENT AND PLAN: Acute Hypoxic Respiratory Failure Pneumonia UTI Severe Sepsis Lactic Acidosis Acute on Chronic Renal Failure Hep C Liver Cirrhosis Ascites Coagulopathy Anemia/Thrombocytopenia COPD h/o DVT - continue antibiotics - f/u cultures - will need central access for possible pressors - IVF boluses as needed - vitamin K - paracentesis when stable - HFOT to keep SpO2 >90% - empiric medrol - inhaled bronchodilators - monitor CBC, coags - continue ICU monitoring for tenuous hemodynamics critical care time spent in reviewing chart, evaluating patient and formulating plan 35 min
[2019-06-05] MEDS ORDERED: PT OWN MED DRAWER 7, Y5N ONE (13:39)
[2019-06-05] MEDS ORDERED: MIDAZOLAM HCL 2 MG/2 ML SINGLE DOSE VIAL ONE (13:41)
[2019-06-05] MEDS ORDERED: MIDAZOLAM HCL 2 MG/2 ML SINGLE DOSE VIAL IVPUSH ONE (14:20)
[2019-06-05] MEDS: NYSTATIN 100000 UNIT/GM TOPICAL OINTMENT 15 GM TUBE TP SCH ×2 (14:21→21:54)
[2019-06-05] MEDS: PHYTONADIONE 5 MG TABLET PO SCH (14:22)
--- NOTE | 2019-06-05 14:42 | PROC ---
<Sofie Hernández - Last Filed: 06/05/19 14:40> Central Line Insertion Indication: Sepsis Risks and Benefits Explained: Yes Consent on Chart: Yes Central Line: Triple Lumen Catheter Anesthesia: 1% Lidocaine Sterile Technique: Yes Ultrasound Guided Assistance: Yes Position: Right Internal Jugular Post Insertion: Yes: Chest X-Ray Ordered Sterile Dressing Applied: Yes <Juliano Chang MD - Last Filed: 06/05/19 15:24> Procedure Note Procedure: I supervised and was present during the entire procedure. Juliano Chang MD
[2019-06-05] MEDS ORDERED: SODIUM CHLORIDE 500 ML IV STA (15:28)
--- NOTE | 2019-06-05 15:55 | PN ---
Progress Note, SUCCESS COACH - Note Progress Note: Selected Entries 06/04/19 06/04/19 06/04/19 02:00 06:00 14:00 Temperature 98.4 F 97.9 F 97.4 F L 06/04/19 06/05/19 06/05/19 22:00 02:00 06:00 Temperature 97.6 F 97.2 F L 97.8 F 06/05/19 06/05/19 10:01 14:00 Temperature 97.6 F 97.7 F Laboratory Tests 06/03/19 06/04/19 06/05/19 09:50 14:30 05:55 WBC 11.2 H 14.8 H 13.0 H Looks much stronger, now on hi-yolis, alert, occasionally verbal. Dysphonia with intermittently stronger phonation. Pt says she is starving. Delayed swallow with trial of applesauce with reduced velocity of laryngeal elevation/depression with fair excursion. Pt Has been tolerating some meds in applesauce today. Overtly, pt seemed to tolerated 3 tsn of applesauce. Silent aspiration can not be r/o at bedside and pt is too weak for mbs and is on hi- yolis at present. Suspect high risk of aspiration on liquids. Also, suspect swallowing may fatigue may increased aspiration risk. Pt has a cough without po trials. Trial-Ensure pudding/magic cup. 1/3 tsp at a time, chin tuck, tell pt to swallow HARD. Feed slowly, maybe just a few tsp at a time and allow pt to rest . d/c po if increased sob, cough,congestion. Reviewed [facility] medical team/RD
--- NOTE | 2019-06-05 15:55 | PN ---
Physical Exam: SUBJECTIVE: Patient seen and examined patient persistenly hypotensive. was taken of BIPAP with good saturations on nasal cannula. central line placed for possible administration of pressors if needed. patient now on high flow oxygen. no acute complaints at this time. OBJECTIVE: Vital Signs Period Temp Pulse Resp BP Sys/Bolaños Pulse Ox Last 24 Hr 97.2 F-97.8 F 69-87 18-27 81-98/41-71 86-100 GEN: NAD, comfortable. AOx3 HEENT: NC/AT, EOMI, PERRLA. No facial asymmetry. Moist mucous membranes. Normal voice. Supple neck w/ FROM. CV: S1/S2, RRR, no m/r/g LUNG: wheezes and crackles bilaterally. on high flow O2 GI: distended abdomen. firm on palpation. , +BS, no guarding, no rebound. EXTREMITIES: 1+ distal pulses. pitting pedal edema. SKIN: warm, dry, normal turgor PSYCH: normal mood and affect NEURO: Moving all extremities well. Laboratory Results - last 24 hr 06/04/19 06/04/19 06/04/19 14:30 14:30 14:30 WBC RBC Hgb Hct MCV MCH MCHC RDW Plt Count MPV Absolute Neuts (auto) Neutrophils % Neutrophils % (Manual) 93.0 H Band Neutrophils % 1.0 Lymphocytes % Lymphocytes % (Manual) 4.0 L D Monocytes % Monocytes % (Manual) 2 L Eosinophils % Eosinophils % (Manual) Basophils % Basophils % (Manual) Myelocytes % (Man) Promyelocytes % (Man) Blast Cells % (Manual) Nucleated RBC % Metamyelocytes Hypochromia 1+ Platelet Estimate Decreased Polychromasia Poikilocytosis Anisocytosis 1+ Microcytosis Macrocytosis 1+ Ovalocytes 1+ Acanthocytes (Spur) Schistocytes PT with INR INR Sodium 140 Potassium 5.1 Chloride 114 H Carbon Dioxide 16 L Anion Gap 9 BUN 50.3 H Creatinine 3.2 H Est GFR (CKD-EPI)AfAm 16.43 Est GFR (CKD-EPI)NonAf 14.17 Random Glucose 102 Calcium 8.6 Phosphorus 4.4 Magnesium 2.1 Total Bilirubin 1.8 H Direct Bilirubin AST 33 ALT 21 Alkaline Phosphatase 126 H Total Protein 4.9 L Albumin 1.8 L Random Vancomycin 8.5 L 06/04/19 06/05/19 06/05/19 14:30 05:55 05:55 WBC 13.0 H RBC 2.34 L Hgb 7.5 L Hct 23.7 L MCV 101.3 H MCH 31.9 MCHC 31.5 L RDW 18.3 H Plt Count 55 L MPV 10.9 Absolute Neuts (auto) 12.3 H Neutrophils % 94.9 H Neutrophils % (Manual) 97.1 H Band Neutrophils % 0.0 Lymphocytes % 2.1 L Lymphocytes % (Manual) 0.0 L Monocytes % 2.9 L Monocytes % (Manual) 3 L Eosinophils % 0.0 Eosinophils % (Manual) 0.0 Basophils % 0.1 Basophils % (Manual) 0.0 Myelocytes % (Man) 0 Promyelocytes % (Man) 0 Blast Cells % (Manual) 0 Nucleated RBC % 0 Metamyelocytes 0 Hypochromia 0 Platelet Estimate Decreased Polychromasia 1+ Poikilocytosis 2+ Anisocytosis 2+ Microcytosis 1+ Macrocytosis 0 Ovalocytes Acanthocytes (Spur) 2+ Schistocytes 2+ PT with INR 39.80 H INR 3.33 H Sodium 133 L Potassium 4.5 Chloride 107 Carbon Dioxide 15 L Anion Gap 10 BUN 44.7 H Creatinine 2.9 H Est GFR (CKD-EPI)AfAm 18.50 Est GFR (CKD-EPI)NonAf 15.97 Random Glucose 98 Calcium 7.1 L Phosphorus 4.1 Magnesium 1.8 Total Bilirubin 1.4 H Direct Bilirubin 0.9 H AST 33 ALT 16 Alkaline Phosphatase 107 Total Protein 4.1 L Albumin 1.4 L Random Vancomycin Active Medications Generic Name Dose Route Start Last Admin Trade Name Vitalyq PRN Reason Stop Dose Admin Albuterol/Ipratropium 1 amp 06/03/19 16:30 06/05/19 12:43 Duoneb - NEB 1 amp RQ4H RADHA Administration Calcium Acetate 667 mg 06/03/19 17:30 06/05/19 15:09 Phoslo - PO Not Given TIDCM RADHA Chlorhexidine Gluconate 1 applic 06/03/19 22:00 06/04/19 22:19 Hibiclens For Decolonization - TP 1 applic HS RADHA Administration Ergocalciferol 50,000 unit 06/10/19 10:00 Drisdol - PO Q7D@1000 RADHA Famotidine 10 mg 06/04/19 10:00 06/05/19 10:04 Acid Hand I Cutter PO Not Given DAILY RADHA Meropenem 500 mg/ Dextrose 100 mls @ 200 mls/hr 06/03/19 17:15 06/05/19 04:30 IVPB 200 mls/hr Q12H RADHA Administration Sodium Chloride 1,000 mls @ 75 mls/hr 06/05/19 11:30 06/05/19 12:00 1/2 Normal Saline IV 75 mls/hr ASDIR RADHA Administration Sodium Chloride 500 mls @ 500 mls/hr 06/05/19 15:28 Normal Saline - IV 06/05/19 16:27 ASDIR STA Norepinephrine Bitartrate 8, 500 mls @ 8.62 mls/hr 06/05/19 15:45 000 mcg/ Dextrose IV ASDIR RADHA Protocol 0.03 MCG/KG/MIN Lactulose 20 gm 06/04/19 20:45 06/05/19 05:50 Cephulac (Oral Use) PO Not Given TID RADHA Methylprednisolone Sodium Succinate 40 mg 06/03/19 21:00 06/05/19 10:07 Solu-Medrol - IVPUSH 40 mg Q6H-IV RAD[facility] Administration Midodrine 5 mg 06/03/19 23:02 06/05/19 14:22 Proamatine - PO 5 mg BID PRN Administration MAP<65mm Hg OR SBP <90 Mupirocin 1 applic 06/03/19 22:00 06/05/19 10:18 Bactroban Ointment (For Decolonization) - NS 06/08/19 21:59 1 applic BID RADHA Administration Nystatin 1 applic 06/05/19 11:24 06/05/19 14:21 Mycostatin Ointment - TP 1 applic BID RADHA Administration Phytonadione 5 mg 06/05/19 11:45 06/05/19 14:22 Mephyton - PO 5 mg DAILY RAD[facility] Administration Polyethylene Glycol 17 gm 06/03/19 16:17 Miralax (For Daily Use) - PO BID PRN CONSTIPATION Rifaximin 550 mg 06/03/19 22:00 06/05/19 10:04 Xifaxan - PO Not Given BID RAD[facility] ASSESSMENT/PLAN: NEURO: alert and oriented CV: persistent hypotension central line place. pressors will be administered if pt. does not respond to IV fluid boluses of normal saline midodrine 5mg bid PULM: acute hypoxic respiratory failure,pneumonia, COPD -inhaled bronchodilators -day 3 of meropenem. continue antibiotics RENAL: acute on chronic renal failure FENGI: Hep C Liver Cirrhosis, ascites -vit K 5mg daily for 5days -rifaximin bid, -Paracentesis when feasible and pt is stabilized per Gi consult HEME/oNC: anemia, thrombocytopenia, coagulopathy -monitor cbc and coags - ffp and vitamin K ID:[id number], -pt on meropenem DVT PPX: LINES/TUBES/DRAINS:central line placed today 06/05/2019 Visit type - Emergency Visit Emergency Visit: Yes ED Registration Date: 06/03/19 Care time: The patient presented to the Emergency Department on the above date and was hospitalized for further evaluation of their emergent condition. - New Patient This patient is new to me today: No - Critical Care Critical Care patient: No - Discharge Referral [facility]erred [facility] Med [facility] No ATTENDING PHYSICIAN STATEMENT I saw and evaluated the patient. I reviewed the resident's note and discussed the case with the resident. I agree with the resident's findings and plan as documented. SUBJECTIVE: OBJECTIVE: ASSESSMENT AND PLAN:
[2019-06-05] MEDS ORDERED: NOREPINEPHRINE BITARTRATE 4 MG/4 ML ML IV ONE (16:06)
[2019-06-05] MEDS: NOREPINEPHRINE BITARTRATE 8,000 MCG in DEXTROSE 5%-WATER - 492 ML IV SCH (16:25)
[2019-06-05] MEDS: CHLORHEXIDINE GLUCONATE 4% CLEANSER FOR DECOLONIZATION TP SCH (21:53)
[2019-06-06] MEDS: ALBUTEROL SO4 2.5/IPRATROPIUM 0.5 INH SOL 3 ML VIAL.NEB. NEB SCH ×6 (00:14→20:55)
[2019-06-06] MEDS ORDERED: DEXTROSE 5%-WATER 100 ML IVPB ONE ×2 (06:23→16:19)
[2019-06-06] MEDS ORDERED: MEROPENEM 500 MG VIAL (RESTRICTED TO ID) IVPB ONE ×2 (06:23→16:19)
[2019-06-06] MEDS: methylPREDNISolone NA SUCC 40 MG/1 ML VIAL IVPUSH SCH ×4 (06:26→22:43)
[2019-06-06] MEDS: LACTULOSE 20 GM/30 ML UDC (FOR ORAL USE ONLY) PO SCH ×3 (06:26→22:43)
[2019-06-06] MEDS: MEROPENEM 500 MG in DEXTROSE 5%-WATER 100 ML IVPB SCH ×2 (06:26→17:43)
[2019-06-06 08:16] LABS: BASO % 0.4 % (0-2.0); HEMATOCRIT 26.2 % (32.4-45.2); HEMOGLOBIN 8.5 GM/dL (10.7-15.3); LYMPH % 2.1 % (8-40); MCH 32.1 pg (25.7-33.7); MCHC 32.4 g/dl (32.0-36.0); MEAN CELL VOLUME 98.9 fl (80-96); MONO % 3.8 % (3.8-10.2); NEUT % 93.7 % (42.8-82.8); PLATELET COUNT 82 K/MM3 (134-434); RBC 2.65 M/mm3 (3.60-5.2); RDW 18.5 % (11.6-15.6); WHITE BLOOD COUNT 19.2 K/mm3 (4.0-10.0)
[2019-06-06 08:29] LABS: INR 2.83 (0.83-1.09); PROTHROMBIN TIME (PATIENT) 33.8 SEC (9.7-13.0)
[2019-06-06 08:32] LABS: ACTIVATED PTT 49.9 SECONDS (25.2-36.5)
[2019-06-06 08:43] LABS: ALBUMIN 1.9 g/dl (3.4-5.0); BLOOD UREA NITROGEN 56.4 mg/dL (7-18); CALCIUM 8.7 mg/dL (8.5-10.1); CREATININE 3.8 mg/dL (0.55-1.3); MAGNESIUM 2.1 mg/dL (1.8-2.4); PHOSPHOROUS 5.1 mg/dL (2.5-4.9); TOT PROT 5.1 g/dl (6.4-8.2)
[2019-06-06] MEDS: MUPIROCIN 2% TOPICAL OINTMENT FOR DECOLONIZATION NS SCH ×2 (09:30→22:51)
[2019-06-06] MEDS: SODIUM BICARBONATE 650 MG TABLET PO SCH ×2 (09:30→22:44)
[2019-06-06] MEDS: PHYTONADIONE 5 MG TABLET PO SCH (09:30)
[2019-06-06] MEDS: RIFAXIMIN 550 MG TABLET (UD) PO SCH ×2 (09:58→22:44)
[2019-06-06] MEDS: FAMOTIDINE 10 MG TABLET PO SCH (09:58)
[2019-06-06] MEDS: NYSTATIN 100000 UNIT/GM TOPICAL OINTMENT 15 GM TUBE TP SCH ×2 (10:00→22:51)
--- NOTE | 2019-06-06 10:35 | PN ---
Progress Note, Physician - Current Medication List Current Medications: Active Medications Albuterol/Ipratropium (Duoneb -) 1 amp NEB RQ4H [facility] Last Admin: 06/06/19 08:27 Dose: 1 amp Calcium Acetate (Phoslo -) 667 mg PO TIDCM [facility] Last Admin: 06/05/19 19:20 Dose: Not Given Chlorhexidine Gluconate (Hibiclens For Decolonization -) 1 applic TP HS [facility] Last Admin: 06/05/19 21:53 Dose: 1 applic Ergocalciferol (Drisdol -) 50,000 unit PO Q7D@1000 RADHA Famotidine (Acid Rn Liaison) 10 mg PO DAILY [facility] Last Admin: 06/06/19 09:58 Dose: 10 mg Meropenem 500 mg/ Dextrose 100 mls @ 200 mls/hr IVPB Q12H [facility] Last Admin: 06/06/19 06:26 Dose: 200 mls/hr Norepinephrine Bitartrate 8, (000 mcg/ Dextrose) 500 mls @ 8.62 mls/hr IV ASDIR [facility]; Protocol Last Titration: 06/05/19 16:30 Dose: 0.06 mcg/kg/min, 18 mls/hr Lactulose (Cephulac (Oral Use)) 20 gm PO TID [facility] Last Admin: 06/06/19 06:26 Dose: 20 gm Methylprednisolone Sodium Succinate (Solu-Medrol -) 40 mg IVPUSH Q6H-IV [facility] Last Admin: 06/06/19 06:26 Dose: 40 mg Midodrine (Proamatine -) 5 mg PO BID PRN PRN Reason: MAP<65mm Hg OR SBP <90 Last Admin: 06/05/19 14:22 Dose: 5 mg Mupirocin (Bactroban Ointment (For Decolonization) -) 1 applic NS BID [facility] Stop: 06/08/19 21:59 Last Admin: 06/05/19 21:44 Dose: 1 applic Nystatin (Mycostatin Ointment -) 1 applic TP BID [facility] Last Admin: 06/05/19 21:54 Dose: 1 applic Phytonadione (Mephyton -) 5 mg PO DAILY [facility] Last Admin: 06/05/19 14:22 Dose: 5 mg Polyethylene Glycol (Miralax (For Daily Use) -) 17 gm PO BID PRN PRN Reason: CONSTIPATION Rifaximin (Xifaxan -) 550 mg PO BID [facility] Last Admin: 06/06/19 09:58 Dose: 550 mg Sodium Bicarbonate (Sodium Bicarbonate -) 650 mg PO BID [facility] - Objective Vital Signs: Vital Signs Temperature 97.8 F 06/05/19 18:00 Pulse Rate 81 06/06/19 08:00 Respiratory Rate 18 06/06/19 08:00 Blood Pressure 98/44 L 06/06/19 08:00 O2 Sat by Pulse Oximetry (%) 93 L 06/05/19 20:24 Cardiovascular: Yes: S1, S2 Respiratory: Yes: Diminished, On Nasal O2, Rhonchi Gastrointestinal: Yes: Normal Bowel Sounds, Soft Labs: CBC, BMP 06/06/19 08:00 06/06/19 08:00 INR, PTT INR 2.83 (0.83-1.09) H 06/06/19 08:00 Assessment/Plan - Problems (1) Sepsis Assessment/Plan: iv abx hydration monitor respiratory status bipap for now-on VM now monitor BP keep MAP> 65 repeat labs ICU CARE bronchodilators Code(s): A41.9 - SEPSIS, UNSPECIFIED ORGANISM (2) Hyperkalemia/warren/ckd Assessment/Plan: cocktail given in ER repeat labs--improved renal on case mopnitor labs (3) Pneumonia Assessment/Plan: ID eval icu management for respiratory status bipap for now broad spectrum iv abx stress dose steroids monitor lactate Code(s): J18.9 - PNEUMONIA, UNSPECIFIED ORGANISM Qualifiers: Pneumonia type: due to unspecified organism Laterality: left Lung location: lower lobe of lung Qualified Code(s): J18.9 - Pneumonia, unspecified organism (4) Ascites Assessment/Plan: with coagulopathy given ffp and vitamin K paracentesis per gi abdominal ultrasound Code(s): R18.8 - OTHER ASCITES Qualifiers: Ascites type: other type Qualified Code(s): R18.8 - Other ascites (5) 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
[2019-06-06 10:40] LABS: ANISOCYTOSIS 2+; MACROCYTOSIS 0; PLATELET ESTIMATE DECREASED
--- NOTE | 2019-06-06 11:41 | PN ---
Teaching Attending Note Name of Resident: Tenzin Cohen ATTENDING PHYSICIAN STATEMENT I saw and evaluated the patient. I reviewed the resident's note and discussed the case with the resident. I agree with the resident's findings and plan as documented. SUBJECTIVE: Patient seen and examined in the ICU. Lethargic but arousbale. Confused. Breathing more comfortable on HFOT. Norepinephrine for hemodynamic support. Intake & Output 06/03/19 06/04/19 06/05/19 06/06/19 23:59 23:59 23:59 23:59 Intake Total 1500 3125 3103.5 521 Output Total 210 700 20 30 Balance 1290 2425 3083.5 491 Weight 160 lb 1.6 oz 169 lb 171 lb 8.314 oz Last Vital Signs Temp Pulse Resp BP Pulse Ox 97.8 F 81 18 98/44 L 93 L 06/05/19 18:00 06/06/19 08:00 06/06/19 08:00 06/06/19 08:00 06/05/19 20:24 Active Medications Albuterol/Ipratropium (Duoneb -) 1 amp NEB RQ4H [facility] Last Admin: 06/06/19 08:27 Dose: 1 amp Calcium Acetate (Phoslo -) 667 mg PO TIDCM [facility] Last Admin: 06/05/19 19:20 Dose: Not Given Chlorhexidine Gluconate (Hibiclens For Decolonization -) 1 applic TP HS [facility] Last Admin: 06/05/19 21:53 Dose: 1 applic Ergocalciferol (Drisdol -) 50,000 unit PO Q7D@1000 RAD[facility] Famotidine (Acid Digital Strategist Senior Manager) 10 mg PO DAILY [facility] Last Admin: 06/06/19 09:58 Dose: 10 mg Meropenem 500 mg/ Dextrose 100 mls @ 200 mls/hr IVPB Q12H [facility] Last Admin: 06/06/19 06:26 Dose: 200 mls/hr Norepinephrine Bitartrate 8, (000 mcg/ Dextrose) 500 mls @ 8.62 mls/hr IV ASDIR [facility]; Protocol Last Titration: 06/05/19 16:30 Dose: 0.06 mcg/kg/min, 18 mls/hr Lactulose (Cephulac (Oral Use)) 20 gm PO TID [facility] Last Admin: 06/06/19 06:26 Dose: 20 gm Methylprednisolone Sodium Succinate (Solu-Medrol -) 40 mg IVPUSH Q6H-IV [facility] Last Admin: 06/06/19 06:26 Dose: 40 mg Midodrine (Proamatine -) 5 mg PO BID PRN PRN Reason: MAP<65mm Hg OR SBP <90 Last Admin: 06/05/19 14:22 Dose: 5 mg Mupirocin (Bactroban Ointment (For Decolonization) -) 1 applic NS BID [facility] Stop: 06/08/19 21:59 Last Admin: 06/05/19 21:44 Dose: 1 applic Nystatin (Mycostatin Ointment -) 1 applic TP BID [facility] Last Admin: 06/05/19 21:54 Dose: 1 applic Phytonadione (Mephyton -) 5 mg PO DAILY [facility] Last Admin: 06/05/19 14:22 Dose: 5 mg Polyethylene Glycol (Miralax (For Daily Use) -) 17 gm PO BID PRN PRN Reason: CONSTIPATION Rifaximin (Xifaxan -) 550 mg PO BID [facility] Last Admin: 06/06/19 09:58 Dose: 550 mg Sodium Bicarbonate (Sodium Bicarbonate -) 650 mg PO BID [facility] Gen: Lethargic but arousbale, Confused, Mildly tachypneic at rest Heart: RRR Lung: scattered rhonchi Abd: softly distended, (+) BS Ext: ecchymotic, + edema DELINQUENT NOTICE MACHINE OPERATOR: Lethargic but arousable, non-focal Laboratory Results - last 24 hr 06/06/19 06/06/19 06/06/19 08:00 08:00 08:00 WBC 19.2 H RBC 2.65 L Hgb 8.5 L Hct 26.2 L MCV 98.9 H MCH 32.1 MCHC 32.4 RDW 18.5 H Plt Count 82 L D MPV 10.0 Absolute Neuts (auto) 18.0 H Neutrophils % 93.7 H Neutrophils % (Manual) 94.0 H Band Neutrophils % 0.0 Lymphocytes % 2.1 L Lymphocytes % (Manual) 0.0 L Monocytes % 3.8 Monocytes % (Manual) 2 L Eosinophils % 0.0 Eosinophils % (Manual) 0.0 Basophils % 0.4 D Basophils % (Manual) 0.0 Myelocytes % (Man) 0 Promyelocytes % (Man) 0 Blast Cells % (Manual) 0 Nucleated RBC % 0 Metamyelocytes 2 D Hypochromia 0 Platelet Estimate Decreased Polychromasia 1+ Poikilocytosis 2+ Anisocytosis 2+ Microcytosis 1+ Macrocytosis 0 Acanthocytes (Spur) 2+ Schistocytes 2+ PT with INR 33.80 H INR 2.83 H PTT (Actin FS) 49.9 H Anticoagulation Therapy Puncture Site Patient Temperature ABG pH ABG pCO2 at Pt Temp ABG pO2 at Pt Temp ABG HCO3 ABG O2 Sat (Measured) ABG O2 Content ABG Base Excess Matt Test O2 Delivery Device Oxygen Flow Rate Vent Mode Vent Rate Mechanical Rate PEEP Pressure Support Vent Sodium 136 Potassium 5.0 Chloride 109 H Carbon Dioxide 14 L Anion Gap 12 BUN 56.4 H Creatinine 3.8 H Est GFR (CKD-EPI)AfAm 13.35 Est GFR (CKD-EPI)NonAf 11.52 Random Glucose 158 H Calcium 8.7 Phosphorus 5.1 H Magnesium 2.1 Total Bilirubin 2.0 H AST 45 H ALT 23 Alkaline Phosphatase 154 H Total Protein 5.1 L Albumin 1.9 L 06/06/19 09:26 WBC RBC Hgb Hct MCV MCH MCHC RDW Plt Count MPV Absolute Neuts (auto) Neutrophils % Neutrophils % (Manual) Band Neutrophils % Lymphocytes % Lymphocytes % (Manual) Monocytes % Monocytes % (Manual) Eosinophils % Eosinophils % (Manual) Basophils % Basophils % (Manual) Myelocytes % (Man) Promyelocytes % (Man) Blast Cells % (Manual) Nucleated RBC % Metamyelocytes Hypochromia Platelet Estimate Polychromasia Poikilocytosis Anisocytosis Microcytosis Macrocytosis Acanthocytes (Spur) Schistocytes PT with INR INR PTT (Actin FS) Anticoagulation Therapy Cancelled Puncture Site Cancelled Patient Temperature Cancelled ABG pH Cancelled ABG pCO2 at Pt Temp Cancelled ABG pO2 at Pt Temp Cancelled ABG HCO3 Cancelled ABG O2 Sat (Measured) Cancelled ABG O2 Content Cancelled ABG Base Excess Cancelled Matt Test Cancelled O2 Delivery Device Cancelled Oxygen Flow Rate Cancelled Vent Mode Cancelled Vent Rate Cancelled Mechanical Rate Cancelled PEEP Cancelled Pressure Support Vent Cancelled Sodium Potassium Chloride Carbon Dioxide Anion Gap BUN Creatinine Est GFR (CKD-EPI)AfAm Est GFR (CKD-EPI)NonAf Random Glucose Calcium Phosphorus Magnesium Total Bilirubin AST ALT Alkaline Phosphatase Total Protein Albumin ASSESSMENT AND PLAN: Acute Hypoxic Respiratory Failure Septic Shock Pneumonia UTI Lactic Acidosis Acute on Chronic Renal Failure Hep C Liver Cirrhosis Ascites Coagulopathy Anemia/Thrombocytopenia COPD h/o DVT - Norepinephrine for hemodynamic support - continue antibiotics - IVF boluses as needed - vitamin K - HFOT to keep SpO2 >90% - Medrol - Inhaled bronchodilators - monitor CBC, coags - continue ICU monitoring for tenuous hemodynamics Dr Valenzuela Critical care time spent in reviewing chart, evaluating patient and formulating plan 36 min
--- NOTE | 2019-06-06 12:56 | PN ---
Progress Note, SEWING TECHNIQUES DEMONSTRATOR - Note Progress Note: Overtly tolerated pudding/magic cup yesterday. Today, vitals worse. PO on hold Selected Entries 06/06/19 06/06/19 06/06/19 00:00 04:00 06:00 Breakfast Temperature Blood Pressure 104/51 L 108/45 L 98/41 L 06/06/19 06/06/19 06/06/19 08:00 10:00 12:00 Breakfast Temperature 95 F L Blood Pressure 98/44 L 98/53 L 97/42 L 06/06/19 12:49 Breakfast NPO Temperature Blood Pressure Laboratory Tests 06/04/19 06/05/19 06/06/19 14:30 05:55 08:00 WBC 14.8 H 13.0 H 19.2 H
--- NOTE | 2019-06-06 13:43 | PN ---
Physical Exam: SUBJECTIVE: Patient seen and examined no acute complaints at time of evaluation OBJECTIVE: Vital Signs Period Temp Pulse Resp BP Sys/Bolaños Pulse Ox Last 24 Hr 95 F-97.8 F 65-89 18-24 80-143/41-68 91-93 GGEN: NAD, comfortable. AOx3 HEENT: NC/AT, EOMI, PERRLA. No facial asymmetry. Moist mucous membranes. CV: S1/S2, RRR, no m/r/g LUNG: wheezes and crackles bilaterally. on high flow O2 GI: distended abdomen. firm on palpation. , +BS, no guarding, no rebound. EXTREMITIES: 1+ distal pulses. pitting pedal edema. SKIN: warm, dry, normal turgor PSYCH: normal mood and affect NEURO: Moving all extremities well. Laboratory Results - last 24 hr 06/06/19 06/06/19 06/06/19 08:00 08:00 08:00 WBC 19.2 H RBC 2.65 L Hgb 8.5 L Hct 26.2 L MCV 98.9 H MCH 32.1 MCHC 32.4 RDW 18.5 H Plt Count 82 L D MPV 10.0 Absolute Neuts (auto) 18.0 H Neutrophils % 93.7 H Neutrophils % (Manual) 94.0 H Band Neutrophils % 0.0 Lymphocytes % 2.1 L Lymphocytes % (Manual) 0.0 L Monocytes % 3.8 Monocytes % (Manual) 2 L Eosinophils % 0.0 Eosinophils % (Manual) 0.0 Basophils % 0.4 D Basophils % (Manual) 0.0 Myelocytes % (Man) 0 Promyelocytes % (Man) 0 Blast Cells % (Manual) 0 Nucleated RBC % 0 Metamyelocytes 2 D Hypochromia 0 Platelet Estimate Decreased Polychromasia 1+ Poikilocytosis 2+ Anisocytosis 2+ Microcytosis 1+ Macrocytosis 0 Acanthocytes (Spur) 2+ Schistocytes 2+ PT with INR 33.80 H INR 2.83 H PTT (Actin FS) 49.9 H Anticoagulation Therapy Puncture Site Patient Temperature ABG pH ABG pCO2 at Pt Temp ABG pO2 at Pt Temp ABG HCO3 ABG O2 Sat (Measured) ABG O2 Content ABG Base Excess Matt Test O2 Delivery Device Oxygen Flow Rate Vent Mode Vent Rate Mechanical Rate PEEP Pressure Support Vent Sodium 136 Potassium 5.0 Chloride 109 H Carbon Dioxide 14 L Anion Gap 12 BUN 56.4 H Creatinine 3.8 H Est GFR (CKD-EPI)AfAm 13.35 Est GFR (CKD-EPI)NonAf 11.52 POC Glucometer Random Glucose 158 H Calcium 8.7 Phosphorus 5.1 H Magnesium 2.1 Total Bilirubin 2.0 H AST 45 H ALT 23 Alkaline Phosphatase 154 H Total Protein 5.1 L Albumin 1.9 L 06/06/19 06/06/19 09:26 12:48 WBC RBC Hgb Hct MCV MCH MCHC RDW Plt Count MPV Absolute Neuts (auto) Neutrophils % Neutrophils % (Manual) Band Neutrophils % Lymphocytes % Lymphocytes % (Manual) Monocytes % Monocytes % (Manual) Eosinophils % Eosinophils % (Manual) Basophils % Basophils % (Manual) Myelocytes % (Man) Promyelocytes % (Man) Blast Cells % (Manual) Nucleated RBC % Metamyelocytes Hypochromia Platelet Estimate Polychromasia Poikilocytosis Anisocytosis Microcytosis Macrocytosis Acanthocytes (Spur) Schistocytes PT with INR INR PTT (Actin FS) Anticoagulation Therapy Cancelled Puncture Site Cancelled Patient Temperature Cancelled ABG pH Cancelled ABG pCO2 at Pt Temp Cancelled ABG pO2 at Pt Temp Cancelled ABG HCO3 Cancelled ABG O2 Sat (Measured) Cancelled ABG O2 Content Cancelled ABG Base Excess Cancelled Matt Test Cancelled O2 Delivery Device Cancelled Oxygen Flow Rate Cancelled Vent Mode Cancelled Vent Rate Cancelled Mechanical Rate Cancelled PEEP Cancelled Pressure Support Vent Cancelled Sodium Potassium Chloride Carbon Dioxide Anion Gap BUN Creatinine Est GFR (CKD-EPI)AfAm Est GFR (CKD-EPI)NonAf POC Glucometer 185 Random Glucose Calcium Phosphorus Magnesium Total Bilirubin AST ALT Alkaline Phosphatase Total Protein Albumin Active Medications Generic Name Dose Route Start Last Admin Trade Name Freq PRN Reason Stop Dose Admin Albuterol/Ipratropium 1 amp 06/03/19 16:30 06/06/19 08:27 Duoneb - NEB 1 amp RQ4H RADHA Administration Calcium Acetate 667 mg 06/03/19 17:30 06/05/19 19:20 Phoslo - PO Not Given TIDCM RADHA Chlorhexidine Gluconate 1 applic 06/03/19 22:00 06/05/19 21:53 Hibiclens For Decolonization - TP 1 applic HS RADHA Administration Ergocalciferol 50,000 unit 06/10/19 10:00 Drisdol - PO Q7D@1000 RADHA Famotidine 10 mg 06/04/19 10:00 06/06/19 09:58 Acid Appliance Mechanic PO 10 mg DAILY RADHA Administration Meropenem 500 mg/ Dextrose 100 mls @ 200 mls/hr 06/03/19 17:15 06/06/19 06:26 IVPB 200 mls/hr Q12H RADHA Administration Norepinephrine Bitartrate 8, 500 mls @ 8.62 mls/hr 06/05/19 15:45 06/05/19 16 :30 000 mcg/ Dextrose IV 0.06 mcg/kg/min ASDIR RADHA 18 mls/hr Titration Protocol 0.03 MCG/KG/MIN Lactulose 20 gm 06/04/19 20:45 06/06/19 06:26 Cephulac (Oral Use) PO 20 gm TID RADHA Administration Methylprednisolone Sodium Succinate 40 mg 06/03/19 21:00 06/06/19 06:26 Solu-Medrol - IVPUSH 40 mg Q6H-IV RADHA Administration Midodrine 5 mg 06/03/19 23:02 06/05/19 14:22 Proamatine - PO 5 mg BID PRN Administration MAP<65mm Hg OR SBP <90 Mupirocin 1 applic 06/03/19 22:00 06/05/19 21:44 Bactroban Ointment (For Decolonization) - NS 06/08/19 21:59 1 applic BID RADHA Administration Nystatin 1 applic 06/05/19 11:24 06/05/19 21:54 Mycostatin Ointment - TP 1 applic BID RADHA Administration Phytonadione 5 mg 06/05/19 11:45 06/05/19 14:22 Mephyton - PO 5 mg DAILY RADHA Administration Polyethylene Glycol 17 gm 06/03/19 16:17 Miralax (For Daily Use) - PO BID PRN CONSTIPATION Rifaximin 550 mg 06/03/19 22:00 06/06/19 09:58 Xifaxan - PO 550 mg BID RADHA Administration Sodium Bicarbonate 650 mg 06/06/19 10:00 Sodium Bicarbonate - PO BID RADHA ASSESSMENT/PLAN: 68 y/o F hx of dementia, chronic UTI's, cirrhosis, Hep C, CHF, DVT admitted for hypxia and ascites NEURO: alert and oriented CV: persistent hypotension central line place. pressors will be administered if pt. does not respond to IV fluid boluses of normal saline midodrine 5mg bid PULM: acute hypoxic respiratory failure,pneumonia, COPD -inhaled bronchodilators -day 3 of meropenem. continue antibiotics RENAL: acute on chronic renal failure d/c fluids per Dr. Yudi DUARTE: Hep C Liver Cirrhosis, ascites -vit K 5mg daily for 5days -rifaximin bid, -Paracentesis when feasible and pt is stabilized per Gi consult HEME/oNC: anemia, thrombocytopenia, coagulopathy -monitor cbc and coags - ffp and vitamin K ID:[id number], -pt on meropenem - pt was hypothermic to 93.8 -sepsis work up sent to lab -lactic acid 4.4 -vancomycin 1X added to regimen -vancomycin level in the a.m Palliative: Daughter Ms. Shante Maurice is present at bedside Has been updated on pt's situation. wants all possible interventions at this time. Ms. Contreras remains full code. DVT PPX:SCD's LINES/TUBES/DRAINS:central line placed today 06/05/2019 Pt hypothermic being worked up for sepsis. Dr. Burns recommends 1g of vancomycin now and a level in the morning. Visit type - Emergency Visit Emergency Visit: Yes ED Registration Date: 06/03/19 Care time: The patient presented to the Emergency Department on the above date and was hospitalized for further evaluation of their emergent condition. - New Patient This patient is new to me today: No - Critical Care Critical Care patient: No - Discharge Referral Referred to [facility] Med [facility].C[facility] No ATTENDING PHYSICIAN STATEMENT I saw and evaluated the patient. I reviewed the resident's note and discussed the case with the resident. I agree with the resident's findings and plan as documented. SUBJECTIVE: OBJECTIVE: ASSESSMENT AND PLAN:
--- NOTE | 2019-06-06 13:44 | PN ---
Progress Note (short form) - Note Progress Note: right IJ placed yesterday remains lethargic now on hiflow oxygen hypothermic this am Vital Signs Period Temp Pulse Resp BP Sys/Bolaños Pulse Ox Last 24 Hr 95 F-97.8 F 65-89 18-24 80-143/41-68 91-93 cor-rrr lungs bilateral rhonchi abd firm, nt ext +edema multiple skin tears, ecchymoses CBC, BMP 06/06/19 08:00 06/06/19 08:00 Microbiology 06/03/19 09:40 Blood - Peripheral Venous Blood Culture - Preliminary NO GROWTH OBTAINED AFTER 72 HOURS, INCUBATION TO CONTINUE FOR 2 DAYS. 06/03/19 09:40 Blood - Peripheral Venous Blood Culture - Preliminary NO GROWTH OBTAINED AFTER 72 HOURS, INCUBATION TO CONTINUE FOR 2 DAYS. 06/03/19 10:20 Urine - Urine Laguerre Urine Culture - Final Escherichia Coli Esbl Staple Laster 06/03/19 15:30 Urine For Antigen Detection Legionella Antigen - Final 06/03/19 15:30 Urine For Antigen Detection Streptococcus pneumoniae Antigen (M - Final a/p sepsis with lactic acidosis hypoxia, respiratory failure- on bipap left lung pneumonia UTI warren on ckd-improved liver cirrhosis with ascites continue meropenem for pneumonia and UTI ?paracentesis reculture for hypothermia vancomycin one dose overall prognosis is guarded Problem List - Problems (1) Sepsis Code(s): A41.9 - SEPSIS, UNSPECIFIED ORGANISM (2) Respiratory failure Code(s): J96.90 - RESPIRATORY FAILURE, UNSP, UNSP W HYPOXIA OR HYPERCAPNIA (3) Pneumonia Code(s): J18.9 - PNEUMONIA, UNSPECIFIED ORGANISM (4) Urinary tract infection Code(s): N39.0 - URINARY TRACT INFECTION, SITE NOT SPECIFIED Qualifiers: Urinary tract infection type: site unspecified Hematuria presence: with hematuria Qualified Code(s): N39.0 - Urinary tract infection, site not specified; R31.9 - Hematuria, unspecified (5) 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 Code(s): B18.2 - CHRONIC VIRAL HEPATITIS C; K74.60 - UNSPECIFIED CIRRHOSIS OF LIVER (6) Acute kidney injury superimposed on CKD Code(s): N17.9 - ACUTE KIDNEY FAILURE, UNSPECIFIED; N18.9 - CHRONIC KIDNEY DISEASE, UNSPECIFIED (7) Acute renal failure Code(s): N17.9 - ACUTE KIDNEY FAILURE, UNSPECIFIED (8) History of ESBL E. coli infection Code(s): Z86.19 - PERSONAL HISTORY OF OTHER INFECTIOUS AND PARASITIC DISEASES
[2019-06-06] MEDS ORDERED: VANCOMYCIN 1 GM in D5W (PRE-DOCKED) 1,000 MG/250 ML IVPB ONE (14:00)
[2019-06-06] MEDS ORDERED: LACTATED RINGERS SOLUTION 1000 ML INFUS.BAG IV ONE (14:55)
[2019-06-06] MEDS: CALCIUM ACETATE 667 MG CAPSULE (FP) PO SCH ×3 (15:11→19:16)
--- NOTE | 2019-06-06 16:13 | PN ---
Progress Note, Physician History of Present Illness: Pt seen and examined at bedside. She remains in the ICU. She remains hypotensive. - Current Medication List Current Medications: Active Medications Albuterol/Ipratropium (Duoneb -) 1 amp NEB RQ4H [facility] Last Admin: 06/06/19 15:43 Dose: 1 amp Calcium Acetate (Phoslo -) 667 mg PO TIDCM [facility] Last Admin: 06/06/19 15:12 Dose: Not Given Chlorhexidine Gluconate (Hibiclens For Decolonization -) 1 applic TP HS [facility] Last Admin: 06/05/19 21:53 Dose: 1 applic Ergocalciferol (Drisdol -) 50,000 unit PO Q7D@1000 RADHA Famotidine (Acid Adult School Counselor) 10 mg PO DAILY [facility] Last Admin: 06/06/19 09:58 Dose: 10 mg Meropenem 500 mg/ Dextrose 100 mls @ 200 mls/hr IVPB Q12H [facility] Last Admin: 06/06/19 06:26 Dose: 200 mls/hr Norepinephrine Bitartrate 8, (000 mcg/ Dextrose) 500 mls @ 8.62 mls/hr IV ASDIR [facility]; Protocol Last Titration: 06/05/19 16:30 Dose: 0.06 mcg/kg/min, 18 mls/hr Lactulose (Cephulac (Oral Use)) 20 gm PO TID [facility] Last Admin: 06/06/19 06:26 Dose: 20 gm Methylprednisolone Sodium Succinate (Solu-Medrol -) 40 mg IVPUSH Q6H-IV RADHA Last Admin: 06/06/19 15:09 Dose: 40 mg Midodrine (Proamatine -) 5 mg PO BID PRN PRN Reason: MAP<65mm Hg OR SBP <90 Last Admin: 06/05/19 14:22 Dose: 5 mg Mupirocin (Bactroban Ointment (For Decolonization) -) 1 applic NS BID [facility] Stop: 06/08/19 21:59 Last Admin: 06/06/19 09:30 Dose: 1 applic Nystatin (Mycostatin Ointment -) 1 applic TP BID [facility] Last Admin: 06/06/19 10:00 Dose: 1 applic Phytonadione (Mephyton -) 5 mg PO DAILY [facility] Last Admin: 06/05/19 14:22 Dose: 5 mg Polyethylene Glycol (Miralax (For Daily Use) -) 17 gm PO BID PRN PRN Reason: CONSTIPATION Rifaximin (Xifaxan -) 550 mg PO BID [facility] Last Admin: 06/06/19 09:58 Dose: 550 mg Sodium Bicarbonate (Sodium Bicarbonate -) 650 mg PO BID RAD[facility] Last Admin: 06/06/19 09:30 Dose: 650 mg - Objective Vital Signs: Vital Signs Temperature 95 F L 06/06/19 10:00 Pulse Rate 88 06/06/19 14:00 Respiratory Rate 18 06/06/19 14:00 Blood Pressure 99/52 L 06/06/19 14:00 O2 Sat by Pulse Oximetry (%) 93 L 06/05/19 20:24 Constitutional: Yes: Calm Eyes: Yes: Conjunctiva Clear Cardiovascular: Yes: S1, S2 Respiratory: Yes: On Nasal O2, Rhonchi Gastrointestinal: Yes: Ascites Genitourinary: Yes: Oliguria Musculoskeletal: Yes: Muscle Weakness Edema: Yes Edema: LLE: 2+, RLE: 2+ Neurological: Yes: Confusion Labs: CBC, BMP 06/06/19 08:00 06/06/19 08:00 INR, PTT INR 2.83 (0.83-1.09) H 06/06/19 08:00 Problem List - Problems (1) Hyperkalemia Code(s): E87.5 - HYPERKALEMIA (2) Pneumonia Code(s): J18.9 - PNEUMONIA, UNSPECIFIED ORGANISM Qualifiers: Pneumonia type: due to unspecified organism Laterality: left Lung location: lower lobe of lung Qualified Code(s): J18.9 - Pneumonia, unspecified organism (3) Sepsis Code(s): A41.9 - SEPSIS, UNSPECIFIED ORGANISM Assessment/Plan Current Medications Generic Name Dose Route Start Last Admin Trade Name Freq PRN Reason Stop Dose Admin Albuterol/Ipratropium 1 amp 06/03/19 16:30 06/06/19 15:43 Duoneb - NEB 1 amp RQ4H RADHA Administration Calcium Acetate 667 mg 06/03/19 17:30 06/06/19 15:12 Phoslo - PO Not Given TIDCM RADHA Chlorhexidine Gluconate 1 applic 06/03/19 22:00 06/05/19 21:53 Hibiclens For Decolonization - TP 1 applic HS RADHA Administration Ergocalciferol 50,000 unit 06/10/19 10:00 Drisdol - PO Q7D@1000 RADHA Famotidine 10 mg 06/04/19 10:00 06/06/19 09:58 Acid Adult School Counselor PO 10 mg DAILY RADHA Administration Meropenem 500 mg/ Dextrose 100 mls @ 200 mls/hr 06/03/19 17:15 06/06/19 06:26 IVPB 200 mls/hr Q12H RADHA Administration Norepinephrine Bitartrate 8, 500 mls @ 8.62 mls/hr 06/05/19 15:45 06/05/19 16 :30 000 mcg/ Dextrose IV 0.06 mcg/kg/min ASDIR RADHA 18 mls/hr Titration Protocol 0.03 MCG/KG/MIN Lactulose 20 gm 06/04/19 20:45 06/06/19 06:26 Cephulac (Oral Use) PO 20 gm TID RADHA Administration Methylprednisolone Sodium Succinate 40 mg 06/03/19 21:00 06/06/19 15:09 Solu-Medrol - IVPUSH 40 mg Q6H-IV RADHA Administration Midodrine 5 mg 06/03/19 23:02 06/05/19 14:22 Proamatine - PO 5 mg BID PRN Administration MAP<65mm Hg OR SBP <90 Mupirocin 1 applic 06/03/19 22:00 06/06/19 09:30 Bactroban Ointment (For Decolonization) - NS 06/08/19 21:59 1 applic BID RADHA Administration Nystatin 1 applic 06/05/19 11:24 06/06/19 10:00 Mycostatin Ointment - TP 1 applic BID RADHA Administration Phytonadione 5 mg 06/05/19 11:45 06/05/19 14:22 Mephyton - PO 5 mg DAILY RADHA Administration Polyethylene Glycol 17 gm 06/03/19 16:17 Miralax (For Daily Use) - PO BID PRN CONSTIPATION Rifaximin 550 mg 06/03/19 22:00 06/06/19 09:58 Xifaxan - PO 550 mg BID RADHA Administration Sodium Bicarbonate 650 mg 06/06/19 10:00 06/06/19 09:30 Sodium Bicarbonate - PO 650 mg BID RADHA Administration Impression 1. DAVID 2. CKD 3. hep C cirrhosis 4. hyperkalemia 5. sepsis 6. ascites 7. hypervolemic hyponatremia 8. coagulopathy 9. hypernatremia 10. cryoglobulins PLAN - renal function worsening - pt overloaded, recommend stopping fluids - monitor bp - discussed with ICU - consider paracentesis with albumin - rheum eval for cryos pending - pt is hypotensive, monitor bp, maintain map 65 if possible - prognosis is poor
[2019-06-06] MEDS ORDERED: NOREPINEPHRINE BITARTRATE 4 MG/4 ML ML IV ONE (16:18)
[2019-06-06] MEDS: NOREPINEPHRINE BITARTRATE 8,000 MCG in DEXTROSE 5%-WATER - 492 ML IV SCH (16:30)
[2019-06-06 17:10] LABS: EPI CELLS 5.2 /HPF (0-5/HPF); HYALINE CASTS 24 /lpf (0-8); URINE APPEARANCE TURBID; URINE BACTERIA 23.1 /hpf (NEGATIVE); URINE BILIRUBIN 1+ (NEGATIVE); URINE COLOR DK YELLOW; URINE GLUCOSE (UA) NEGATIVE (NEGATIVE); URINE KETONE TRACE (NEGATIVE); URINE LEUK ESTERASE 2+ (NEGATIVE); URINE NITRITE NEGATIVE (NEGATIVE); URINE PROTEIN 1+ (NEGATIVE); URINE UROBILINOGEN 0.2 mg/dL (0.2-1.0); URINE WBC 434 /hpf (0-5)
[2019-06-06 17:27] LABS: YEAST MANY (NEGATIVE)
[2019-06-06] MEDS: CHLORHEXIDINE GLUCONATE 4% CLEANSER FOR DECOLONIZATION TP SCH (22:51)
[2019-06-07] MEDS: ALBUTEROL SO4 2.5/IPRATROPIUM 0.5 INH SOL 3 ML VIAL.NEB. NEB SCH ×6 (00:55→20:28)
[2019-06-07] MEDS: methylPREDNISolone NA SUCC 40 MG/1 ML VIAL IVPUSH SCH ×4 (02:06→22:45)
[2019-06-07 02:45] LABS: ARTERIAL BLD GAS O2 SATURATION 84.2 % (95-98); ARTERIAL BLOOD GAS BASE EXCESS -11.3 meq/l (-2-2); ARTERIAL BLOOD GAS PO2 55.3 mmHg (80-100); ARTERIAL BLOOD GAS pH 7.36 (7.35-7.45)
[2019-06-07 02:49] LABS: ALLENS TEST POSITIVE
[2019-06-07] MEDS ORDERED: MEROPENEM 500 MG VIAL (RESTRICTED TO ID) IVPB ONE ×2 (04:09→16:18)
[2019-06-07] MEDS ORDERED: DEXTROSE 5%-WATER 100 ML IVPB ONE ×2 (04:09→16:19)
[2019-06-07] MEDS: MEROPENEM 500 MG in DEXTROSE 5%-WATER 100 ML IVPB SCH ×2 (05:05→16:27)
[2019-06-07] MEDS: LACTULOSE 20 GM/30 ML UDC (FOR ORAL USE ONLY) PO SCH ×3 (05:48→22:45)
[2019-06-07 05:56] LABS: ALLENS TEST POSITIVE
[2019-06-07 05:59] LABS: ARTERIAL BLD GAS O2 SATURATION 86.2 % (95-98); ARTERIAL BLOOD GAS BASE EXCESS -11.3 meq/l (-2-2); ARTERIAL BLOOD GAS PCO2 22.9 mmHg (35-45); ARTERIAL BLOOD GAS PO2 58.3 mmHg (80-100); ARTERIAL BLOOD GAS pH 7.36 (7.35-7.45)
[2019-06-07 06:58] LABS: BASO % 0.3 % (0-2.0); HEMATOCRIT 24.5 % (32.4-45.2); HEMOGLOBIN 8.1 GM/dL (10.7-15.3); LYMPH % 1.4 % (8-40); MCH 32.2 pg (25.7-33.7); MCHC 32.9 g/dl (32.0-36.0); MEAN CELL VOLUME 97.9 fl (80-96); MEAN PLT VOLUME 10.2 fl (7.5-11.1); MONO % 2.6 % (3.8-10.2); NEUT % 95.7 % (42.8-82.8); PLATELET COUNT 67 K/MM3 (134-434); RBC 2.51 M/mm3 (3.60-5.2); RDW 18.3 % (11.6-15.6); WHITE BLOOD COUNT 17.8 K/mm3 (4.0-10.0)
[2019-06-07 07:17] LABS: INR 2.16 (0.83-1.09); PROTHROMBIN TIME (PATIENT) 25.7 SEC (9.7-13.0)
[2019-06-07 07:36] LABS: ALBUMIN 1.9 g/dl (3.4-5.0); BLOOD UREA NITROGEN 61.6 mg/dL (7-18); CALCIUM 8.6 mg/dL (8.5-10.1); CREATININE 3.9 mg/dL (0.55-1.3); MAGNESIUM 2.2 mg/dL (1.8-2.4); POTASSIUM 5.2 mmol/L (3.5-5.1)
--- NOTE | 2019-06-07 09:32 | PN ---
Progress Note, Physician - Current Medication List Current Medications: Active Medications Albuterol/Ipratropium (Duoneb -) 1 amp NEB RQ4H [facility] Last Admin: 06/07/19 08:40 Dose: 1 amp Calcium Acetate (Phoslo -) 667 mg PO TIDCM [facility] Last Admin: 06/06/19 19:16 Dose: Not Given Chlorhexidine Gluconate (Hibiclens For Decolonization -) 1 applic TP HS [facility] Last Admin: 06/06/19 22:51 Dose: 1 applic Ergocalciferol (Drisdol -) 50,000 unit PO Q7D@1000 RADHA Famotidine (Acid Mate Fourth) 10 mg PO DAILY [facility] Last Admin: 06/06/19 09:58 Dose: 10 mg Meropenem 500 mg/ Dextrose 100 mls @ 200 mls/hr IVPB Q12H [facility] Last Admin: 06/07/19 05:05 Dose: 200 mls/hr Norepinephrine Bitartrate 8, (000 mcg/ Dextrose) 500 mls @ 8.62 mls/hr IV ASDIR RADHA; Protocol Last Titration: 06/07/19 06:30 Dose: 0 mcg/kg/min, 0 mls/hr Lactulose (Cephulac (Oral Use)) 20 gm PO TID [facility] Last Admin: 06/07/19 05:48 Dose: Not Given Methylprednisolone Sodium Succinate (Solu-Medrol -) 40 mg IVPUSH Q6H-IV [facility] Last Admin: 06/07/19 02:06 Dose: 40 mg Midodrine (Proamatine -) 5 mg PO BID PRN PRN Reason: MAP<65mm Hg OR SBP <90 Last Admin: 06/05/19 14:22 Dose: 5 mg Mupirocin (Bactroban Ointment (For Decolonization) -) 1 applic NS BID [facility] Stop: 06/08/19 21:59 Last Admin: 06/06/19 22:51 Dose: 1 applic Nystatin (Mycostatin Ointment -) 1 applic TP BID [facility] Last Admin: 06/06/19 22:51 Dose: 1 applic Phytonadione (Mephyton -) 5 mg PO DAILY [facility] Last Admin: 06/06/19 09:30 Dose: 5 mg Polyethylene Glycol (Miralax (For Daily Use) -) 17 gm PO BID PRN PRN Reason: CONSTIPATION Rifaximin (Xifaxan -) 550 mg PO BID [facility] Last Admin: 06/06/19 22:44 Dose: Not Given Sodium Bicarbonate (Sodium Bicarbonate -) 650 mg PO TID [facility] - Objective Vital Signs: Vital Signs Temperature 97.4 F L 06/07/19 02:00 Pulse Rate 95 H 06/07/19 08:20 Respiratory Rate 20 06/07/19 08:00 Blood Pressure 100/49 L 06/07/19 08:00 O2 Sat by Pulse Oximetry (%) 92 L 06/07/19 08:20 Cardiovascular: Yes: S1, S2 Respiratory: Yes: On Nasal O2, Rhonchi Gastrointestinal: Yes: Normal Bowel Sounds, Soft, Ascites, Distention Labs: CBC, BMP 06/07/19 05:00 06/07/19 05:00 INR, PTT INR 2.16 (0.83-1.09) H 06/07/19 05:00 Assessment/Plan - Problems (1) Sepsis Assessment/Plan: iv abx--continue meropenem for pneumonia and UTI hydration monitor respiratory status off pressers today monitor BP keep MAP> 65 repeat labs ICU CARE bronchodilators Code(s): A41.9 - SEPSIS, UNSPECIFIED ORGANISM (2) Hyperkalemia/warren/ckd Assessment/Plan: cocktail given in ER repeat labs--improved renal on hospice case manager labs (3) Pneumonia Assessment/Plan: ID eval icu management for respiratory status bipap for now broad spectrum iv abx stress dose steroids monitor lactate Code(s): J18.9 - PNEUMONIA, UNSPECIFIED ORGANISM Qualifiers: Pneumonia type: due to unspecified organism Laterality: left Lung location: lower lobe of lung Qualified Code(s): J18.9 - Pneumonia, unspecified organism (4) Ascites Assessment/Plan: with coagulopathy given ffp and vitamin K paracentesis per gi abdominal ultrasound Code(s): R18.8 - OTHER ASCITES Qualifiers: Ascites type: other type Qualified Code(s): R18.8 - Other ascites (5) 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 Assessment/Plan: rifamxin bid gi consult noted Code(s): B18.2 - CHRONIC VIRAL HEPATITIS C; K74.60 - UNSPECIFIED CIRRHOSIS OF LIVER (6) Coagulopathy Assessment/Plan: ffp and vitamin K Code(s): D68.9 - COAGULATION DEFECT, UNSPECIFIED (7) CKD (chronic kidney disease) Assessment/Plan: correct potassium hydration renal consult Code(s): N18.9 - CHRONIC KIDNEY DISEASE, UNSPECIFIED overall prognosis poor -- palliative care consult
--- NOTE | 2019-06-07 10:06 | PN ---
Progress Note (short form) - Note Progress Note: more alert today remains on hiflow oxygen Vital Signs Period Temp Pulse Resp BP Sys/Bolaños Pulse Ox Last 24 Hr 95.1 F-97.9 F 79-121 18-32 95-138/42-79 91-97 cor-rrr lungs decreased bs at bases abd soft,nt ext +ecchymosis CBC, BMP 06/07/19 05:00 06/07/19 05:00 Microbiology 06/03/19 09:40 Blood - Peripheral Venous Blood Culture - Preliminary NO GROWTH OBTAINED AFTER 72 HOURS, INCUBATION TO CONTINUE FOR 2 DAYS. 06/03/19 09:40 Blood - Peripheral Venous Blood Culture - Preliminary NO GROWTH OBTAINED AFTER 72 HOURS, INCUBATION TO CONTINUE FOR 2 DAYS. 06/03/19 10:20 Urine - Urine Laguerre Urine Culture - Final Escherichia Coli Esbl Construction Assistant 06/03/19 15:30 Urine For Antigen Detection Legionella Antigen - Final 06/03/19 15:30 Urine For Antigen Detection Streptococcus pneumoniae Antigen (M - Final Laboratory Tests 06/07/19 05:00 Random Vancomycin 19.3 cxray slightly improved a/p sepsis hypoxia, respiratory failure- on oxygen left lung pneumonia UTI warren on ckd-worsening liver cirrhosis with ascites continue meropenem for pneumonia and UTI ?paracentesis vancomycin one dose f/u repeat cultures ?advanced directives overall prognosis is guarded Problem List - Problems (1) Sepsis Code(s): A41.9 - SEPSIS, UNSPECIFIED ORGANISM (2) Respiratory failure Code(s): J96.90 - RESPIRATORY FAILURE, UNSP, UNSP W HYPOXIA OR HYPERCAPNIA (3) Pneumonia Code(s): J18.9 - PNEUMONIA, UNSPECIFIED ORGANISM (4) Urinary tract infection Code(s): N39.0 - URINARY TRACT INFECTION, SITE NOT SPECIFIED Qualifiers: Urinary tract infection type: site unspecified Hematuria presence: with hematuria Qualified Code(s): N39.0 - Urinary tract infection, site not specified; R31.9 - Hematuria, unspecified (5) 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 Code(s): B18.2 - CHRONIC VIRAL HEPATITIS C; K74.60 - UNSPECIFIED CIRRHOSIS OF LIVER (6) Acute kidney injury superimposed on CKD Code(s): N17.9 - ACUTE KIDNEY FAILURE, UNSPECIFIED; N18.9 - CHRONIC KIDNEY DISEASE, UNSPECIFIED (7) Acute renal failure Code(s): N17.9 - ACUTE KIDNEY FAILURE, UNSPECIFIED (8) History of ESBL E. coli infection Code(s): Z86.19 - PERSONAL HISTORY OF OTHER INFECTIOUS AND PARASITIC DISEASES
[2019-06-07 10:10] LABS: ANISOCYTOSIS 2+; MACROCYTOSIS 1+; PLATELET ESTIMATE DECREASED
--- NOTE | 2019-06-07 10:40 | PN ---
Teaching Attending Note Name of Resident: Xin Richardson ATTENDING PHYSICIAN STATEMENT I saw and evaluated the patient. I reviewed the resident's note and discussed the case with the resident. I agree with the resident's findings and plan as documented. SUBJECTIVE: Patient seen and examined in the ICU. Lethargic but arousbale. Confused. Remains on HFOT, 40L, 75% FiO2. Low dose norepinephrine for hemodynamic support. Intake & Output 06/04/19 06/05/19 06/06/19 06/07/19 23:59 23:59 23:59 23:59 Intake Total 3125 3103.5 1134 Output Total 700 20 60 Balance 2425 3083.5 1074 Weight 169 lb 171 lb 8.314 oz 172 lb 6.424 oz Last Vital Signs Temp Pulse Resp BP Pulse Ox 97.9 F 97 H 20 100/50 L 92 L 06/07/19 10:00 06/07/19 10:00 06/07/19 10:00 06/07/19 10:00 06/07/19 08:20 Active Medications Albuterol/Ipratropium (Duoneb -) 1 amp NEB RQ4H [facility] Last Admin: 06/07/19 08:40 Dose: 1 amp Calcium Acetate (Phoslo -) 667 mg PO TIDCM [facility] Last Admin: 06/06/19 19:16 Dose: Not Given Chlorhexidine Gluconate (Hibiclens For Decolonization -) 1 applic TP HS [facility] Last Admin: 06/06/19 22:51 Dose: 1 applic Ergocalciferol (Drisdol -) 50,000 unit PO Q7D@1000 RADHA Famotidine (Acid Security Control Center Operator) 10 mg PO DAILY [facility] Last Admin: 06/06/19 09:58 Dose: 10 mg Meropenem 500 mg/ Dextrose 100 mls @ 200 mls/hr IVPB Q12H [facility] Last Admin: 06/07/19 05:05 Dose: 200 mls/hr Norepinephrine Bitartrate 8, (000 mcg/ Dextrose) 500 mls @ 8.62 mls/hr IV ASDIR [facility]; Protocol Last Titration: 06/07/19 06:30 Dose: 0 mcg/kg/min, 0 mls/hr Lactulose (Cephulac (Oral Use)) 20 gm PO TID [facility] Last Admin: 06/07/19 05:48 Dose: Not Given Methylprednisolone Sodium Succinate (Solu-Medrol -) 40 mg IVPUSH Q6H-IV RADHA Last Admin: 06/07/19 02:06 Dose: 40 mg Midodrine (Proamatine -) 5 mg PO BID PRN PRN Reason: MAP<65mm Hg OR SBP <90 Last Admin: 06/05/19 14:22 Dose: 5 mg Mupirocin (Bactroban Ointment (For Decolonization) -) 1 applic NS BID [facility] Stop: 06/08/19 21:59 Last Admin: 06/06/19 22:51 Dose: 1 applic Nystatin (Mycostatin Ointment -) 1 applic TP BID [facility] Last Admin: 06/06/19 22:51 Dose: 1 applic Phytonadione (Mephyton -) 5 mg PO DAILY [facility] Last Admin: 06/06/19 09:30 Dose: 5 mg Polyethylene Glycol (Miralax (For Daily Use) -) 17 gm PO BID PRN PRN Reason: CONSTIPATION Rifaximin (Xifaxan -) 550 mg PO BID [facility] Last Admin: 06/06/19 22:44 Dose: Not Given Sodium Bicarbonate (Sodium Bicarbonate -) 650 mg PO TID [facility] Gen: Lethargic but arousbale, Confused, Mildly tachypneic at rest Heart: RRR Lung: scattered rhonchi Abd: softly distended, (+) BS Ext: ecchymotic, + edema VAT OVERHAULER: Lethargic but arousable, non-focal Laboratory Results - last 24 hr 06/06/19 06/06/19 06/06/19 08:00 12:48 13:25 WBC RBC Hgb Hct MCV MCH MCHC RDW Plt Count MPV Absolute Neuts (auto) Neutrophils % Neutrophils % (Manual) 94.0 H Band Neutrophils % 0.0 Lymphocytes % Lymphocytes % (Manual) 0.0 L Monocytes % Monocytes % (Manual) 2 L Eosinophils % Eosinophils % (Manual) 0.0 Basophils % Basophils % (Manual) 0.0 Myelocytes % (Man) 0 Promyelocytes % (Man) 0 Blast Cells % (Manual) 0 Nucleated RBC % 0 Metamyelocytes 2 D Hypochromia 0 Platelet Estimate Decreased Polychromasia 1+ Poikilocytosis 2+ Anisocytosis 2+ Microcytosis 1+ Macrocytosis 0 Acanthocytes (Spur) 2+ Schistocytes 2+ PT with INR INR Anticoagulation Therapy Puncture Site ABG pH ABG pCO2 at Pt Temp ABG pO2 at Pt Temp ABG HCO3 ABG O2 Sat (Measured) ABG O2 Content ABG Base Excess Matt Test O2 Delivery Device Oxygen Flow Rate Vent Mode Vent Rate Mechanical Rate Pressure Support Vent Sodium Potassium Chloride Carbon Dioxide Anion Gap BUN Creatinine Est GFR (CKD-EPI)AfAm Est GFR (CKD-EPI)NonAf POC Glucometer 185 Random Glucose Lactic Acid 4.4 H* Calcium Phosphorus Magnesium Total Bilirubin AST ALT Alkaline Phosphatase Total Protein Albumin Urine Color Urine Appearance Urine pH Ur Specific [place] Urine Protein Urine Glucose (UA) Urine Ketones Urine Blood Urine Nitrite Urine Bilirubin Urine Urobilinogen Ur Leukocyte Esterase Urine WBC (Auto) Urine Casts (Auto) U Pathogenic Cast Auto U Epithel Cells (Auto) Urine Bacteria (Auto) Urine Yeast (Auto) Random Vancomycin 06/06/19 06/07/19 06/07/19 14:45 02:30 05:00 WBC RBC Hgb Hct MCV MCH MCHC RDW Plt Count MPV Absolute Neuts (auto) Neutrophils % Neutrophils % (Manual) Band Neutrophils % Lymphocytes % Lymphocytes % (Manual) Monocytes % Monocytes % (Manual) Eosinophils % Eosinophils % (Manual) Basophils % Basophils % (Manual) Myelocytes % (Man) Promyelocytes % (Man) Blast Cells % (Manual) Nucleated RBC % Metamyelocytes Hypochromia Platelet Estimate Polychromasia Poikilocytosis Anisocytosis Microcytosis Macrocytosis Acanthocytes (Spur) Schistocytes PT with INR INR Anticoagulation Therapy No Result Required. Puncture Site Right radial ABG pH 7.36 ABG pCO2 at Pt Temp 23.0 L ABG pO2 at Pt Temp 55.3 L ABG HCO3 12.7 L ABG O2 Sat (Measured) 84.2 L ABG O2 Content 10.0 ABG Base Excess -11.3 L Matt Test Positive O2 Delivery Device High flow Oxygen Flow Rate 50% Vent Mode No Result Required. Vent Rate No Result Required. Mechanical Rate No Result Required. Pressure Support Vent No Result Required. Sodium Potassium Chloride Carbon Dioxide Anion Gap BUN Creatinine Est GFR (CKD-EPI)AfAm Est GFR (CKD-EPI)NonAf POC Glucometer Random Glucose Lactic Acid Calcium Phosphorus Magnesium Total Bilirubin AST ALT Alkaline Phosphatase Total Protein Albumin Urine Color Dk yellow Urine Appearance Turbid Urine pH 5.0 Ur Specific [place] 1.019 Urine Protein 1+ H Urine Glucose (UA) Negative Urine Ketones Trace H Urine Blood 3+ H Urine Nitrite Negative Urine Bilirubin 1+ H Urine Urobilinogen 0.2 Ur Leukocyte Esterase 2+ H Urine WBC (Auto) 434 Urine Casts (Auto) 24 U Pathogenic Cast Auto None U Epithel Cells (Auto) 5.2 Urine Bacteria (Auto) 23.1 Urine Yeast (Auto) Many Random Vancomycin 19.3 06/07/19 06/07/19 06/07/19 05:00 05:00 05:00 WBC 17.8 H RBC 2.51 L Hgb 8.1 L Hct 24.5 L MCV 97.9 H MCH 32.2 MCHC 32.9 RDW 18.3 H Plt Count 67 L MPV 10.2 Absolute Neuts (auto) 17.0 H Neutrophils % 95.7 H Neutrophils % (Manual) 97.0 H Band Neutrophils % 0.0 Lymphocytes % 1.4 L D Lymphocytes % (Manual) 0.0 L Monocytes % 2.6 L Monocytes % (Manual) 3 L Eosinophils % 0.0 Eosinophils % (Manual) 0.0 Basophils % 0.3 Basophils % (Manual) 0.0 Myelocytes % (Man) 0 Promyelocytes % (Man) 0 Blast Cells % (Manual) 0 Nucleated RBC % 1 H Metamyelocytes 0 D Hypochromia Platelet Estimate Decreased Polychromasia 1+ Poikilocytosis Anisocytosis 2+ Microcytosis Macrocytosis 1+ Acanthocytes (Spur) Schistocytes 1+ PT with INR INR Anticoagulation Therapy Puncture Site ABG pH ABG pCO2 at Pt Temp ABG pO2 at Pt Temp ABG HCO3 ABG O2 Sat (Measured) ABG O2 Content ABG Base Excess Matt Test O2 Delivery Device Oxygen Flow Rate Vent Mode Vent Rate Mechanical Rate Pressure Support Vent Sodium 135 L Potassium 5.2 H Chloride 109 H Carbon Dioxide 15 L Anion Gap 11 BUN 61.6 H Creatinine 3.9 H Est GFR (CKD-EPI)AfAm 12.93 Est GFR (CKD-EPI)NonAf 11.16 POC Glucometer Random Glucose 85 Lactic Acid 4.4 H* Calcium 8.6 Phosphorus 5.0 H Magnesium 2.2 Total Bilirubin 2.0 H AST 48 H ALT 23 Alkaline Phosphatase 144 H Total Protein 5.0 L Albumin 1.9 L Urine Color Urine Appearance Urine pH Ur Specific [place] Urine Protein Urine Glucose (UA) Urine Ketones Urine Blood Urine Nitrite Urine Bilirubin Urine Urobilinogen Ur Leukocyte Esterase Urine WBC (Auto) Urine Casts (Auto) U Pathogenic Cast Auto U Epithel Cells (Auto) Urine Bacteria (Auto) Urine Yeast (Auto) Random Vancomycin 06/07/19 06/07/19 05:00 05:45 WBC RBC Hgb Hct MCV MCH MCHC RDW Plt Count MPV Absolute Neuts (auto) Neutrophils % Neutrophils % (Manual) Band Neutrophils % Lymphocytes % Lymphocytes % (Manual) Monocytes % Monocytes % (Manual) Eosinophils % Eosinophils % (Manual) Basophils % Basophils % (Manual) Myelocytes % (Man) Promyelocytes % (Man) Blast Cells % (Manual) Nucleated RBC % Metamyelocytes Hypochromia Platelet Estimate Polychromasia Poikilocytosis Anisocytosis Microcytosis Macrocytosis Acanthocytes (Spur) Schistocytes PT with INR 25.70 H INR 2.16 H Anticoagulation Therapy No Result Required. Puncture Site Right radial ABG pH 7.36 ABG pCO2 at Pt Temp 22.9 L ABG pO2 at Pt Temp 58.3 L ABG HCO3 12.7 L ABG O2 Sat (Measured) 86.2 L ABG O2 Content 9.8 ABG Base Excess -11.3 L Matt Test Positive O2 Delivery Device High flow Oxygen Flow Rate 75% Vent Mode No Result Required. Vent Rate No Result Required. Mechanical Rate No Result Required. Pressure Support Vent No Result Required. Sodium Potassium Chloride Carbon Dioxide Anion Gap BUN Creatinine Est GFR (CKD-EPI)AfAm Est GFR (CKD-EPI)NonAf POC Glucometer Random Glucose Lactic Acid Calcium Phosphorus Magnesium Total Bilirubin AST ALT Alkaline Phosphatase Total Protein Albumin Urine Color Urine Appearance Urine pH Ur Specific [place] Urine Protein Urine Glucose (UA) Urine Ketones Urine Blood Urine Nitrite Urine Bilirubin Urine Urobilinogen Ur Leukocyte Esterase Urine WBC (Auto) Urine Casts (Auto) U Pathogenic Cast Auto U Epithel Cells (Auto) Urine Bacteria (Auto) Urine Yeast (Auto) Random Vancomycin ASSESSMENT AND PLAN: Acute Hypoxic Respiratory Failure Septic Shock Pneumonia UTI Lactic Acidosis Acute on Chronic Renal Failure Hep C Liver Cirrhosis Ascites Coagulopathy Anemia/Thrombocytopenia COPD h/o DVT - For paracentesis - Norepinephrine for hemodynamic support - continue antibiotics - IVF boluses as needed - vitamin K - HFOT to keep SpO2 >90% - Medrol - Inhaled bronchodilators - monitor CBC, coags - continue ICU monitoring for tenuous hemodynamics Dr Valenzuela Critical care time spent in reviewing chart, evaluating patient and formulating plan 36 min
--- NOTE | 2019-06-07 11:03 | CONSULT ---
Consult Consult Specialty:: Rheumatology - History of Present Illness History of Present Illness: 68 year old female with history of HCV cirrhosis, (HCV not treated), portal hypertension with ascites, metabolic encephalopathy, dementia, chronic UTI, DVT on Eliquis, prob IVC thrombosis, chronic renal insufficiency and low complement admitted with hypoxia to 82% while on non-rebreather. She was diagnosed with pneumonia and UTI. The patient has probable cryoglobulinemia, and consulted for evaluation. The patient does not contribute to the history. The patient has had hematuria since 2013 with intermittent proteinuria. Elevation of creatinine since 09/18/18. In the present admission creatinine 3.4 and today 3.9. , UA with LE 3+, blood 3+, AST 48 and ALT 27 and alk. Phos 144. Laboratory work-up from 04/23/19 revealed JOSE A, rheumatoid factor, ANCA, myelopreoxidase, proteinase-3 and glomerular basal membrane antibody were all negative. Complement was decreased (C3: 74 and C4: 10). M spike not observed. 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 no documented history of tb or hepatitis - Past Surgical History Additional Surgical History: Denies - Alcohol/Substance Use Hx Alcohol Use: Yes (In past) History of Substance Use: reports: Prescription (In past) - Smoking History Smoking history: Never smoked Have you smoked in the past 12 months: No - Social History Usual Living Arrangement: [facility] ADL: Family Assistance History of Recent Travel: No Home Medications - Allergies Allergies/Adverse Reactions: Allergies Allergy/AdvReac Type Severity Reaction Status Date / Time No Known Allergies Allergy Verified 06/03/19 10:34 - Home Medications Home Medications: Ambulatory Orders Ergocalciferol [Vitamin D2] 50,000 unit PO Q7D@1000 #4 capsule 01/14/19 Apixaban [Eliquis] 2.5 mg PO BID 04/20/19 Calcium Acetate [Phoslo -] 667 mg PO TIDCM capsule 05/09/19 Famotidine [Pepcid -] 20 mg PO BID tablet 05/09/19 Midodrine HCl [Proamatine -] 5 mg PO BID PRN tablet 05/09/19 Ondansetron [Zofran -] 4 mg PO TID PRN #30 tab 05/09/19 Rifaximin [Xifaxan -] 550 mg PO BID #30 tablet 05/09/19 Acetaminophen [Tylenol] 325 mg PO PRN PRN 06/03/19 Albuterol 2.5/Ipratropium 0.5 [Duoneb -] 1 neb NEB Q4H 06/03/19 Furosemide Injection [Lasix Injection -] 60 mg IVPB DAILY PRN 06/03/19 Lactulose (Oral Use) [Cephulac -] 30 gm PO QID 06/03/19 Moxifloxacin HCl [Moxifloxacin] 3 ml OP TID 06/03/19 Polyethylene Glycol 3350 [Miralax 119 gm Btl -] 17 gm PO BID PRN 06/03/19 Potassium Chloride 40 meq PO DAILY 06/03/19 Torsemide [Demadex -] 20 mg PO ASDIR 06/03/19 Torsemide [Demadex -] 20 mg PO Q2D 06/03/19 Physical Exam Vital Signs: Vital Signs Temperature 97.9 F 06/07/19 10:00 Pulse Rate 97 H 06/07/19 10:00 Respiratory Rate 20 06/07/19 10:00 Blood Pressure 100/50 L 06/07/19 10:00 O2 Sat by Pulse Oximetry (%) 92 L 06/07/19 08:20 Constitutional: Yes: Calm Eyes: Yes: WNL HENT: Yes: WNL Neck: Yes: WNL Cardiovascular: Yes: WNL Respiratory: Yes: Rales Gastrointestinal: Yes: Ascites Extremities: Yes: Other (No active joints.) Labs: CBC, BMP 06/07/19 05:00 06/07/19 05:00 Laboratory Tests 06/06/19 06/07/19 14:45 05:00 Calcium 8.6 Phosphorus 5.0 H Magnesium 2.2 Total Bilirubin 2.0 H AST 48 H ALT 23 Alkaline Phosphatase 144 H Total Protein 5.0 L Albumin 1.9 L Urine pH 5.0 Ur Specific [place] 1.019 Urine Protein 1+ H Urine Glucose (UA) Negative Urine Ketones Trace H Urine Blood 3+ H Urine Nitrite Negative Urine Bilirubin 1+ H Urine Urobilinogen 0.2 Ur Leukocyte Esterase 2+ H Urine WBC (Auto) 434 Urine Casts (Auto) 24 Problem List - Problems (1) 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 Most likely the patient has cryoglobulinemia related to hepatitis C. It is not clear if it is an additional factor for her chronic kidney disease and probably it is not contributing to the present sepsis or hypoxia. Based on the fact that she has cirrhosis I do not suggest any additional treatment (such as Rituximab). I do not think she has any additional connective tissue disease. Code(s): D89.1 - CRYOGLOBULINEMIA; B18.2 - CHRONIC VIRAL HEPATITIS C
[2019-06-07] MEDS: CALCIUM ACETATE 667 MG CAPSULE (FP) PO SCH ×3 (11:13→16:56)
[2019-06-07] MEDS: SODIUM BICARBONATE 650 MG TABLET PO SCH ×3 (11:13→22:45)
[2019-06-07] MEDS: RIFAXIMIN 550 MG TABLET (UD) PO SCH ×2 (11:18→22:46)
[2019-06-07] MEDS: FAMOTIDINE 10 MG TABLET PO SCH (11:22)
[2019-06-07] MEDS: MUPIROCIN 2% TOPICAL OINTMENT FOR DECOLONIZATION NS SCH ×2 (11:22→22:46)
--- NOTE | 2019-06-07 14:31 | PN ---
Physical Exam: SUBJECTIVE: Patient seen and examined in the morning. No acute events overnight. No events on cardiac monitoring. Patient has no complaints of chest pain, abdominal pain, nausea, vomiting, diarrhea. OBJECTIVE: Vital Signs Period Temp Pulse Resp BP Sys/Bolaños Pulse Ox Last 24 Hr 95.1 F-97.9 F 84-121 20-32 91-138/37-79 91-97 GENERAL: Awake and alert, on high flow oxygen. HEENT: atraumatic, normocephalic NECK: +JVD. LUNGS: B/l scattered wheezes, fine crackles noted. HEART: S1 S2 present. No murmurs rubs or gallups. ABDOMEN: Distended, +fluid shift. +caput medusae. MUSCULOSKELETAL: Normal range of motion at all joints. No bony deformities or tenderness. No CVA tenderness. EXTREMITIES: 2+ pulses, warm, well-perfused. No cyanosis. No clubbing. Cap refill <2 seconds. Scattered ecchymosis noted on b/l upper extremities. 2+ pitting edema on lower extremities SKIN: Warm, dry, thin skin. Laboratory Results - last 24 hr 06/06/19 06/06/19 06/07/19 13:25 14:45 02:30 WBC RBC Hgb Hct MCV MCH MCHC RDW Plt Count MPV Absolute Neuts (auto) Neutrophils % Neutrophils % (Manual) Band Neutrophils % Lymphocytes % Lymphocytes % (Manual) Monocytes % Monocytes % (Manual) Eosinophils % Eosinophils % (Manual) Basophils % Basophils % (Manual) Myelocytes % (Man) Promyelocytes % (Man) Blast Cells % (Manual) Nucleated RBC % Metamyelocytes Platelet Estimate Polychromasia Anisocytosis Macrocytosis Schistocytes PT with INR INR Anticoagulation Therapy No Result Required. Puncture Site Right radial ABG pH 7.36 ABG pCO2 at Pt Temp 23.0 L ABG pO2 at Pt Temp 55.3 L ABG HCO3 12.7 L ABG O2 Sat (Measured) 84.2 L ABG O2 Content 10.0 ABG Base Excess -11.3 L Matt Test Positive O2 Delivery Device High flow Oxygen Flow Rate 50% Vent Mode No Result Required. Vent Rate No Result Required. Mechanical Rate No Result Required. Pressure Support Vent No Result Required. Sodium Potassium Chloride Carbon Dioxide Anion Gap BUN Creatinine Est GFR (CKD-EPI)AfAm Est GFR (CKD-EPI)NonAf Random Glucose Lactic Acid 4.4 H* Calcium Phosphorus Magnesium Total Bilirubin AST ALT Alkaline Phosphatase Total Protein Albumin Urine Color Dk yellow Urine Appearance Turbid Urine pH 5.0 Ur Specific Herrick 1.019 Urine Protein 1+ H Urine Glucose (UA) Negative Urine Ketones Trace H Urine Blood 3+ H Urine Nitrite Negative Urine Bilirubin 1+ H Urine Urobilinogen 0.2 Ur Leukocyte Esterase 2+ H Urine WBC (Auto) 434 Urine Casts (Auto) 24 U Pathogenic Cast Auto None U Epithel Cells (Auto) 5.2 Urine Bacteria (Auto) 23.1 Urine Yeast (Auto) Many Random Vancomycin 06/07/19 06/07/19 06/07/19 05:00 05:00 05:00 WBC 17.8 H RBC 2.51 L Hgb 8.1 L Hct 24.5 L MCV 97.9 H MCH 32.2 MCHC 32.9 RDW 18.3 H Plt Count 67 L MPV 10.2 Absolute Neuts (auto) 17.0 H Neutrophils % 95.7 H Neutrophils % (Manual) 97.0 H Band Neutrophils % 0.0 Lymphocytes % 1.4 L D Lymphocytes % (Manual) 0.0 L Monocytes % 2.6 L Monocytes % (Manual) 3 L Eosinophils % 0.0 Eosinophils % (Manual) 0.0 Basophils % 0.3 Basophils % (Manual) 0.0 Myelocytes % (Man) 0 Promyelocytes % (Man) 0 Blast Cells % (Manual) 0 Nucleated RBC % 1 H Metamyelocytes 0 D Platelet Estimate Decreased Polychromasia 1+ Anisocytosis 2+ Macrocytosis 1+ Schistocytes 1+ PT with INR INR Anticoagulation Therapy Puncture Site ABG pH ABG pCO2 at Pt Temp ABG pO2 at Pt Temp ABG HCO3 ABG O2 Sat (Measured) ABG O2 Content ABG Base Excess Matt Test O2 Delivery Device Oxygen Flow Rate Vent Mode Vent Rate Mechanical Rate Pressure Support Vent Sodium Potassium Chloride Carbon Dioxide Anion Gap BUN Creatinine Est GFR (CKD-EPI)AfAm Est GFR (CKD-EPI)NonAf Random Glucose Lactic Acid 4.4 H* Calcium Phosphorus Magnesium Total Bilirubin AST ALT Alkaline Phosphatase Total Protein Albumin Urine Color Urine Appearance Urine pH Ur Specific Herrick Urine Protein Urine Glucose (UA) Urine Ketones Urine Blood Urine Nitrite Urine Bilirubin Urine Urobilinogen Ur Leukocyte Esterase Urine WBC (Auto) Urine Casts (Auto) U Pathogenic Cast Auto U Epithel Cells (Auto) Urine Bacteria (Auto) Urine Yeast (Auto) Random Vancomycin 19.3 06/07/19 06/07/19 06/07/19 05:00 05:00 05:45 WBC RBC Hgb Hct MCV MCH MCHC RDW Plt Count MPV Absolute Neuts (auto) Neutrophils % Neutrophils % (Manual) Band Neutrophils % Lymphocytes % Lymphocytes % (Manual) Monocytes % Monocytes % (Manual) Eosinophils % Eosinophils % (Manual) Basophils % Basophils % (Manual) Myelocytes % (Man) Promyelocytes % (Man) Blast Cells % (Manual) Nucleated RBC % Metamyelocytes Platelet Estimate Polychromasia Anisocytosis Macrocytosis Schistocytes PT with INR 25.70 H INR 2.16 H Anticoagulation Therapy No Result Required. Puncture Site Right radial ABG pH 7.36 ABG pCO2 at Pt Temp 22.9 L ABG pO2 at Pt Temp 58.3 L ABG HCO3 12.7 L ABG O2 Sat (Measured) 86.2 L ABG O2 Content 9.8 ABG Base Excess -11.3 L Matt Test Positive O2 Delivery Device High flow Oxygen Flow Rate 75% Vent Mode No Result Required. Vent Rate No Result Required. Mechanical Rate No Result Required. Pressure Support Vent No Result Required. Sodium 135 L Potassium 5.2 H Chloride 109 H Carbon Dioxide 15 L Anion Gap 11 BUN 61.6 H Creatinine 3.9 H Est GFR (CKD-EPI)AfAm 12.93 Est GFR (CKD-EPI)NonAf 11.16 Random Glucose 85 Lactic Acid Calcium 8.6 Phosphorus 5.0 H Magnesium 2.2 Total Bilirubin 2.0 H AST 48 H ALT 23 Alkaline Phosphatase 144 H Total Protein 5.0 L Albumin 1.9 L Urine Color Urine Appearance Urine pH Ur Specific Herrick Urine Protein Urine Glucose (UA) Urine Ketones Urine Blood Urine Nitrite Urine Bilirubin Urine Urobilinogen Ur Leukocyte Esterase Urine WBC (Auto) Urine Casts (Auto) U Pathogenic Cast Auto U Epithel Cells (Auto) Urine Bacteria (Auto) Urine Yeast (Auto) Random Vancomycin Active Medications Generic Name Dose Route Start Last Admin Trade Name Freq PRN Reason Stop Dose Admin Albuterol/Ipratropium 1 amp 06/03/19 16:30 06/07/19 11:55 Duoneb - NEB 1 amp RQ4H RADHA Administration Calcium Acetate 667 mg 06/03/19 17:30 06/07/19 11:13 Phoslo - PO Not Given TIDCM RADHA Chlorhexidine Gluconate 1 applic 06/03/19 22:00 06/06/19 22:51 Hibiclens For Decolonization - TP 1 applic HS RADHA Administration Ergocalciferol 50,000 unit 06/10/19 10:00 Drisdol - PO Q7D@1000 RADHA Famotidine 10 mg 06/04/19 10:00 06/07/19 11:22 Acid Teller Head PO 10 mg DAILY RADHA Administration Meropenem 500 mg/ Dextrose 100 mls @ 200 mls/hr 06/03/19 17:15 06/07/19 05:05 IVPB 200 mls/hr Q12H RADHA Administration Norepinephrine Bitartrate 8, 500 mls @ 8.62 mls/hr 06/05/19 15:45 06/07/19 06 :30 000 mcg/ Dextrose IV 0 mcg/kg/min ASDIR RADHA 0 mls/hr Titration Protocol 0.03 MCG/KG/MIN Lactulose 20 gm 06/04/19 20:45 06/07/19 05:48 Cephulac (Oral Use) PO Not Given TID RADHA Methylprednisolone Sodium Succinate 40 mg 06/03/19 21:00 06/07/19 11:13 Solu-Medrol - IVPUSH 40 mg Q6H-IV RADHA Administration Midodrine 5 mg 06/03/19 23:02 06/05/19 14:22 Proamatine - PO 5 mg BID PRN Administration MAP<65mm Hg OR SBP <90 Mupirocin 1 applic 06/03/19 22:00 06/07/19 11:22 Bactroban Ointment (For Decolonization) - NS 06/08/19 21:59 1 applic BID RADHA Administration Nystatin 1 applic 06/05/19 11:24 06/06/19 22:51 Mycostatin Ointment - TP 1 applic BID RADHA Administration Phytonadione 5 mg 06/05/19 11:45 06/06/19 09:30 Mephyton - PO 5 mg DAILY RADHA Administration Polyethylene Glycol 17 gm 06/03/19 16:17 Miralax (For Daily Use) - PO BID PRN CONSTIPATION Rifaximin 550 mg 06/03/19 22:00 06/07/19 11:18 Xifaxan - PO 550 mg BID RADHA Administration Sodium Bicarbonate 650 mg 06/07/19 08:00 06/07/19 11:13 Sodium Bicarbonate - PO 650 mg TID RADHA Administration ASSESSMENT/PLAN: 68F PMH dementia, chronic UTI, HTN, decompensated HCV cirrhosis, CHF, COPD, DVT , who presents with acute hypoxic respiratory failure. Pulm -Acute Hypoxic respiratory failure. -Meropenem 500 mg IV -BiPAP -Duonebs PRN -Solu-Medrol 40 mg Q6H IV ID -Sepsis 2/2 HCAP/UTI (hx of ESBL UTI) -Meropenem -CXR showed improvement of right sided fluid -UA+ for nitrite, 3+ LE, 403 WBCs; Urine culture growing ESBL producing E.Coli -ID consulted, appreciate recs CV -Hx of CHF -Currently stable. -No more IV fluids. GI -Hx of Decompensated HCV Cirrhosis -Abdominal U/S shows ascites present. -Paracentesis completed- patient had 3 bottles filled. Diagnostic studies pending -GI consulted, appreciate recs -Rheumatology consulted, appreciate recs Renal -CKD -Hx of ESBL UTI -Nephro consulted -Cont IV abx Heme -Thrombocytopenia, likely 2/2 chronic disease in setting of cirrhosis/renal failure/sepsis -Was previously on Eliquis but was d/c'd due to nosebleed -Hold heparin products Neuro -Stable. Awake and alert. 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 -Not give rituximab due to cirrhosis. DVT Prophylaxis: SCDS GI prophylaxis: Famotidine 10 mg PO Daily F: Oral hydration E: Monitor CMP N: NPO aspiration risk Dispo: Monitoring in ICU . Visit type - Emergency Visit Emergency Visit: Yes ED Registration Date: 06/03/19 Care time: The patient presented to the Emergency Department on the above date and was hospitalized for further evaluation of their emergent condition. - New Patient This patient is new to me today: No - Critical Care Critical Care patient: Yes Total Critical Care Time (in minutes): 45 Critical Care Statement: The care of this patient involved high complexity decision making to prevent further life threatening deterioration of the patient 's condition and/or to evaluate & treat vital organ system(s) failure or risk of failure. ATTENDING PHYSICIAN STATEMENT I saw and evaluated the patient. I reviewed the resident's note and discussed the case with the resident. I agree with the resident's findings and plan as documented. SUBJECTIVE: OBJECTIVE: ASSESSMENT AND PLAN:
[2019-06-07 15:13] LABS: PERITONEAL RBC 467 /mm3
--- NOTE | 2019-06-07 15:18 | PN ---
Progress Note, PRICE CHECKER - Note Progress Note: Selected Entries 06/06/19 06/06/19 06/06/19 10:00 11:00 13:00 Temperature 95 F L 95.8 F L 96.2 F L 06/06/19 06/06/19 06/06/19 14:00 15:00 17:00 Temperature 96.8 F L 97.2 F L 97.5 F L 06/06/19 06/07/19 06/07/19 20:00 00:00 02:00 Temperature 95.1 F L 97.1 F L 97.4 F L 06/07/19 06/07/19 10:00 14:00 Temperature 97.9 F 97.7 F Laboratory Tests 06/04/19 06/05/19 06/06/19 14:30 05:55 08:00 WBC 14.8 H 13.0 H 19.2 H 06/07/19 05:00 WBC 17.8 H Lethargic, confused. NPO
[2019-06-07 16:04] LABS: PERITONEAL FLUID LYMPHOCYTE 28 %; PERITONEAL FLUID MESOTHELIAL 3 %; PERITONEAL FLUID MONOCYTE 20 %; PERITONEAL FLUID NEUTROPHIL 49 %
[2019-06-07] MEDS ORDERED: PT OWN MED DRAWER 7, Y5N ONE (16:19)
[2019-06-07] MEDS ORDERED: SODIUM ZIRCONIUM CYCLOSILICATE (LOKELMA) 5 GM PACKET PO ONE (16:23)
[2019-06-07] MEDS: PHYTONADIONE 5 MG TABLET PO SCH (16:23)
--- NOTE | 2019-06-07 16:23 | PN ---
Progress Note, Physician History of Present Illness: Pt seen and examined at bedside. She appears fatigued. She had the paracentesis today. - Current Medication List Current Medications: Active Medications Albuterol/Ipratropium (Duoneb -) 1 amp NEB RQ4H [facility] Last Admin: 06/07/19 16:11 Dose: 1 amp Calcium Acetate (Phoslo -) 667 mg PO TIDCM [facility] Last Admin: 06/07/19 11:13 Dose: Not Given Chlorhexidine Gluconate (Hibiclens For Decolonization -) 1 applic TP HS [facility] Last Admin: 06/06/19 22:51 Dose: 1 applic Ergocalciferol (Drisdol -) 50,000 unit PO Q7D@1000 RADHA Famotidine (Acid Traffic Safety Administrator) 10 mg PO DAILY [facility] Last Admin: 06/07/19 11:22 Dose: 10 mg Meropenem 500 mg/ Dextrose 100 mls @ 200 mls/hr IVPB Q12H [facility] Last Admin: 06/07/19 05:05 Dose: 200 mls/hr Norepinephrine Bitartrate 8, (000 mcg/ Dextrose) 500 mls @ 8.62 mls/hr IV ASDIR [facility]; Protocol Last Titration: 06/07/19 12:30 Dose: 0.05 mcg/kg/min, 14.38 mls/hr Lactulose (Cephulac (Oral Use)) 20 gm PO TID [facility] Last Admin: 06/07/19 05:48 Dose: Not Given Methylprednisolone Sodium Succinate (Solu-Medrol -) 40 mg IVPUSH Q6H-IV RADHA Last Admin: 06/07/19 11:13 Dose: 40 mg Midodrine (Proamatine -) 5 mg PO BID PRN PRN Reason: MAP<65mm Hg OR SBP <90 Last Admin: 06/05/19 14:22 Dose: 5 mg Mupirocin (Bactroban Ointment (For Decolonization) -) 1 applic NS BID [facility] Stop: 06/08/19 21:59 Last Admin: 06/07/19 11:22 Dose: 1 applic Nystatin (Mycostatin Ointment -) 1 applic TP BID [facility] Last Admin: 06/06/19 22:51 Dose: 1 applic Phytonadione (Mephyton -) 5 mg PO DAILY [facility] Last Admin: 06/06/19 09:30 Dose: 5 mg Polyethylene Glycol (Miralax (For Daily Use) -) 17 gm PO BID PRN PRN Reason: CONSTIPATION Rifaximin (Xifaxan -) 550 mg PO BID [facility] Last Admin: 06/07/19 11:18 Dose: 550 mg Sodium Bicarbonate (Sodium Bicarbonate -) 650 mg PO TID [facility] Last Admin: 06/07/19 11:13 Dose: 650 mg - Objective Vital Signs: Vital Signs Temperature 97.7 F 06/07/19 14:00 Pulse Rate 99 H 06/07/19 16:00 Respiratory Rate 23 H 06/07/19 16:00 Blood Pressure 116/55 L 06/07/19 16:00 O2 Sat by Pulse Oximetry (%) 93 L 06/07/19 09:00 Constitutional: Yes: Calm Eyes: Yes: Conjunctiva Clear HENT: Yes: Atraumatic Cardiovascular: Yes: S1, S2 Respiratory: Yes: On Nasal O2 Gastrointestinal: Yes: Ascites Genitourinary: Yes: Laguerre Present Musculoskeletal: Yes: Muscle Weakness Edema: Yes Edema: LLE: 1+, RLE: 1+ Integumentary: Yes: Skin Tear Neurological: Yes: Confusion Labs: CBC, BMP 06/07/19 05:00 06/07/19 05:00 INR, PTT INR 2.16 (0.83-1.09) H 06/07/19 05:00 Problem List - Problems (1) Hyperkalemia Code(s): E87.5 - HYPERKALEMIA (2) Pneumonia Code(s): J18.9 - PNEUMONIA, UNSPECIFIED ORGANISM Qualifiers: Qualified Code(s): J18.9 - Pneumonia, unspecified organism (3) Sepsis Code(s): A41.9 - SEPSIS, UNSPECIFIED ORGANISM Assessment/Plan Current Medications Generic Name Dose Route Start Last Admin Trade Name Freq PRN Reason Stop Dose Admin Albuterol/Ipratropium 1 amp 06/03/19 16:30 06/07/19 16:11 Duoneb - NEB 1 amp RQ4H [facility] Administration Calcium Acetate 667 mg 06/03/19 17:30 06/07/19 11:13 Phoslo - PO Not Given TIDCM [facility] Chlorhexidine Gluconate 1 applic 06/03/19 22:00 06/06/19 22:51 Hibiclens For Decolonization - TP 1 applic HS RADHA Administration Ergocalciferol 50,000 unit 06/10/19 10:00 Drisdol - PO Q7D@1000 RADHA Famotidine 10 mg 06/04/19 10:00 06/07/19 11:22 Acid Traffic Safety Administrator PO 10 mg DAILY RADHA Administration Meropenem 500 mg/ Dextrose 100 mls @ 200 mls/hr 06/03/19 17:15 06/07/19 05:05 IVPB 200 mls/hr Q12H RADHA Administration Norepinephrine Bitartrate 8, 500 mls @ 8.62 mls/hr 06/05/19 15:45 06/07/19 12 :30 000 mcg/ Dextrose IV 0.05 mcg/kg/min ASDIR RADHA 14.38 mls/hr Titration Protocol 0.03 MCG/KG/MIN Lactulose 20 gm 06/04/19 20:45 06/07/19 05:48 Cephulac (Oral Use) PO Not Given TID RADHA Methylprednisolone Sodium Succinate 40 mg 06/03/19 21:00 06/07/19 11:13 Solu-Medrol - IVPUSH 40 mg Q6H-IV RADHA Administration Midodrine 5 mg 06/03/19 23:02 06/05/19 14:22 Proamatine - PO 5 mg BID PRN Administration MAP<65mm Hg OR SBP <90 Mupirocin 1 applic 06/03/19 22:00 06/07/19 11:22 Bactroban Ointment (For Decolonization) - NS 06/08/19 21:59 1 applic BID RADHA Administration Nystatin 1 applic 06/05/19 11:24 06/06/19 22:51 Mycostatin Ointment - TP 1 applic BID RADHA Administration Phytonadione 5 mg 06/05/19 11:45 06/06/19 09:30 Mephyton - PO 5 mg DAILY RADHA Administration Polyethylene Glycol 17 gm 06/03/19 16:17 Miralax (For Daily Use) - PO BID PRN CONSTIPATION Rifaximin 550 mg 06/03/19 22:00 06/07/19 11:18 Xifaxan - PO 550 mg BID RADHA Administration Sodium Bicarbonate 650 mg 06/07/19 08:00 06/07/19 11:13 Sodium Bicarbonate - PO 650 mg TID RADHA Administration Impression 1. DAVID 2. CKD 3. hep C cirrhosis 4. hyperkalemia 5. sepsis 6. ascites 7. hypervolemic hyponatremia 8. coagulopathy 9. hypernatremia 10. cryoglobulins PLAN - s/p paracentesis - cont po bicarb - give dose of lokelma - caution with fluids - discussed with ICU - consider paracentesis with albumin - rheum eval for cryos pending - pt is hypotensive, monitor bp, maintain map 65 if possible - prognosis is poor
[2019-06-07] MEDS: NYSTATIN 100000 UNIT/GM TOPICAL OINTMENT 15 GM TUBE TP SCH ×2 (16:24→22:46)
--- NOTE | 2019-06-07 16:26 | PN.GI ---
GI Progress Note Subjective: S/P 3L paracentesis today Patient confused at times Denies abdominal pain Her hi flow oxygen canula is in her mouth No SBP on paracentesis - Objective Vital Signs: Vital Signs Temperature 97.7 F 06/07/19 14:00 Pulse Rate 99 H 06/07/19 16:00 Respiratory Rate 23 H 06/07/19 16:00 Blood Pressure 116/55 L 06/07/19 16:00 O2 Sat by Pulse Oximetry (%) 93 L 06/07/19 09:00 Constitutional: Calm Eyes: No: Sclera Icterus Cardiovascular: Yes: Tachycardia Respiratory: Yes: Diminished (at bases bilaterally), Rhonchi (at bases bilaterally) Gastrointestinal Inspection: Yes: Distention ...Auscultate: Yes: Normoactive Bowel Sounds ...Palpate: Yes: Soft. No: Tenderness ...Percussion: No: Tympanitic Neurological: Yes: Confusion Labs: CBC, BMP 06/07/19 05:00 06/07/19 05:00 INR, PTT INR 2.16 (0.83-1.09) H 06/07/19 05:00 Hepatic Panel Total Bilirubin 2.0 mg/dL (0.2-1) H 06/07/19 05:00 Direct Bilirubin 0.9 mg/dL (0.0-0.2) H 06/05/19 05:55 AST 48 U/L (15-37) H 06/07/19 05:00 ALT 23 U/L (13-61) 06/07/19 05:00 Alkaline Phosphatase 144 U/L (45-117) H 06/07/19 05:00 Albumin 1.9 g/dl (3.4-5.0) L 06/07/19 05:00 Problem List - Problems (1) Ascites Assessment/Plan: S/P 3 L paracentesis. No SBP Continue Lactulose, Rifaximin Care per PMD / Critical care team Code(s): R18.8 - OTHER ASCITES
[2019-06-07] MEDS: NOREPINEPHRINE BITARTRATE 8,000 MCG in DEXTROSE 5%-WATER - 492 ML IV SCH (22:42)
[2019-06-07] MEDS: CHLORHEXIDINE GLUCONATE 4% CLEANSER FOR DECOLONIZATION TP SCH (22:45)
[2019-06-08] MEDS: ALBUTEROL SO4 2.5/IPRATROPIUM 0.5 INH SOL 3 ML VIAL.NEB. NEB SCH ×4 (00:49→12:55)
[2019-06-08] MEDS ORDERED: DEXTROSE 5%-WATER 100 ML IVPB ONE ×2 (01:43→17:18)
[2019-06-08] MEDS ORDERED: MEROPENEM 500 MG VIAL (RESTRICTED TO ID) IVPB ONE ×2 (01:43→17:18)
[2019-06-08] MEDS: methylPREDNISolone NA SUCC 40 MG/1 ML VIAL IVPUSH SCH ×3 (02:03→17:25)
[2019-06-08] MEDS: MEROPENEM 500 MG in DEXTROSE 5%-WATER 100 ML IVPB SCH ×2 (05:02→17:37)
[2019-06-08] MEDS: SODIUM BICARBONATE 650 MG TABLET PO SCH ×3 (06:00→21:33)
[2019-06-08] MEDS: LACTULOSE 20 GM/30 ML UDC (FOR ORAL USE ONLY) PO SCH ×3 (06:00→22:30)
[2019-06-08] MEDS: CALCIUM ACETATE 667 MG CAPSULE (FP) PO SCH ×3 (08:00→17:22)
[2019-06-08 09:37] LABS: EOS % 0.1 % (0-4.5); HEMATOCRIT 25.4 % (32.4-45.2); HEMOGLOBIN 8.3 GM/dL (10.7-15.3); LYMPH % 2.2 % (8-40); MCH 32.4 pg (25.7-33.7); MCHC 32.7 g/dl (32.0-36.0); MONO % 0.1 % (3.8-10.2); NEUT % 95.6 % (42.8-82.8); PLATELET COUNT 45 K/MM3 (134-434); RBC 2.56 M/mm3 (3.60-5.2)
[2019-06-08 09:53] LABS: ALBUMIN 1.8 g/dl (3.4-5.0); BILIRUBIN,TOTAL 2.9 mg/dL (0.2-1); BLOOD UREA NITROGEN 71.4 mg/dL (7-18); CREATININE 4.3 mg/dL (0.55-1.3); MAGNESIUM 2.3 mg/dL (1.8-2.4); PHOSPHOROUS 5.6 mg/dL (2.5-4.9); POTASSIUM 5.2 mmol/L (3.5-5.1)
[2019-06-08] MEDS: FAMOTIDINE 10 MG TABLET PO SCH (10:00)
[2019-06-08] MEDS: PHYTONADIONE 5 MG TABLET PO SCH (10:00)
[2019-06-08] MEDS: RIFAXIMIN 550 MG TABLET (UD) PO SCH ×2 (10:00→21:32)
[2019-06-08] MEDS: MUPIROCIN 2% TOPICAL OINTMENT FOR DECOLONIZATION NS SCH (10:44)
[2019-06-08 10:55] LABS: ANISOCYTOSIS 2+; MACROCYTOSIS 0; PLATELET ESTIMATE DECREASED
--- NOTE | 2019-06-08 11:57 | PN ---
Progress Note, Physician History of Present Illness: AWAKE, CONFUSED SL TACHYPNEIC ON HIGH FLOW O2 S/P PARACENTESIS - Current Medication List Current Medications: Active Medications Albuterol/Ipratropium (Duoneb -) 1 amp NEB RQ4H [facility] Last Admin: 06/08/19 08:39 Dose: 1 amp Calcium Acetate (Phoslo -) 667 mg PO TIDCM [facility] Last Admin: 06/08/19 08:00 Dose: Not Given Chlorhexidine Gluconate (Hibiclens For Decolonization -) 1 applic TP HS [facility] Last Admin: 06/07/19 22:45 Dose: 1 applic Ergocalciferol (Drisdol -) 50,000 unit PO Q7D@1000 RADHA Famotidine (Acid Tractor Crane Engineer) 10 mg PO DAILY [facility] Last Admin: 06/08/19 10:00 Dose: Not Given Meropenem 500 mg/ Dextrose 100 mls @ 200 mls/hr IVPB Q12H [facility] Last Admin: 06/08/19 05:02 Dose: 200 mls/hr Norepinephrine Bitartrate 8, (000 mcg/ Dextrose) 500 mls @ 8.62 mls/hr IV ASDIR [facility]; Protocol Last Titration: 06/08/19 03:46 Dose: 0 mcg/kg/min, 0 mls/hr Lactulose (Cephulac (Oral Use)) 20 gm PO TID [facility] Last Admin: 06/07/19 22:45 Dose: 20 gm Methylprednisolone Sodium Succinate (Solu-Medrol -) 40 mg IVPUSH Q8H-IV [facility] Midodrine (Proamatine -) 5 mg PO BID PRN PRN Reason: MAP<65mm Hg OR SBP <90 Last Admin: 06/05/19 14:22 Dose: 5 mg Mupirocin (Bactroban Ointment (For Decolonization) -) 1 applic NS BID [facility] Stop: 06/08/19 21:59 Last Admin: 06/08/19 10:44 Dose: 1 applic Nystatin (Mycostatin Ointment -) 1 applic TP BID [facility] Last Admin: 06/07/19 22:46 Dose: 1 applic Phytonadione (Mephyton -) 5 mg PO DAILY [facility] Last Admin: 06/08/19 10:00 Dose: Not Given Polyethylene Glycol (Miralax (For Daily Use) -) 17 gm PO BID PRN PRN Reason: CONSTIPATION Rifaximin (Xifaxan -) 550 mg PO BID [facility] Last Admin: 06/08/19 10:00 Dose: Not Given Sodium Bicarbonate (Sodium Bicarbonate -) 650 mg PO TID [facility] Last Admin: 06/07/19 22:45 Dose: 650 mg - Objective Vital Signs: Vital Signs Temperature 98.0 F 06/08/19 10:00 Pulse Rate 85 06/08/19 10:00 Respiratory Rate 19 06/08/19 10:00 Blood Pressure 91/62 06/08/19 10:00 O2 Sat by Pulse Oximetry (%) 92 L 06/08/19 09:00 Constitutional: Yes: No Distress Cardiovascular: Yes: Regular Rate and Rhythm, S1, S2 Respiratory: Yes: Diminished Gastrointestinal: Yes: Normal Bowel Sounds, Soft. No: Tenderness Labs: CBC, BMP 06/08/19 09:00 06/08/19 09:00 INR, PTT INR 2.16 (0.83-1.09) H 06/07/19 05:00 Assessment/Plan RESPIRATORY FAILURE PNEUMONIA LEUKOCYTOSIS UTI DAVID CIRRHOSIS CONTINUE MEROPENEM
[2019-06-08] MEDS ORDERED: ALBUTEROL SO4 0.083% IH SOL 2.5 MG/3 ML VIAL.NEB. NEB PRN (11:58)
--- NOTE | 2019-06-08 12:00 | PN ---
Teaching Attending Note Name of Resident: Amanda Razo ATTENDING PHYSICIAN STATEMENT I saw and evaluated the patient. I reviewed the resident's note and discussed the case with the resident. I agree with the resident's findings and plan as documented. SUBJECTIVE: Pt seen and examined in the ICU. Remains on HFOT with 75% FiO2. Off pressors this AM. OBJECTIVE: Vital Signs Period Temp Pulse Resp BP Sys/Bolaños Pulse Ox Last 24 Hr 97.7 F-98.0 F 70-108 14-28 91-121/37-77 92-94 Intake & Output 06/05/19 06/06/19 06/07/19 06/08/19 23:59 23:59 23:59 23:59 Intake Total 3103.5 1134 192 167 Output Total 20 60 3075 25 Balance 3083.5 1074 -2883 142 Weight 76.657 kg 77.8 kg 78.2 kg 78.562 kg Gen: tachypneic on HFOT Heart: RRR Lung: scattered rhonchi Abd: soft, nontender Ext: + edema CBC, BMP 06/08/19 09:00 06/08/19 09:00 Active Medications Albuterol/Ipratropium (Duoneb -) 1 amp NEB RQ4H [facility] Last Admin: 06/08/19 08:39 Dose: 1 amp Calcium Acetate (Phoslo -) 667 mg PO TIDCM [facility] Last Admin: 06/08/19 08:00 Dose: Not Given Chlorhexidine Gluconate (Hibiclens For Decolonization -) 1 applic TP HS [facility] Last Admin: 06/07/19 22:45 Dose: 1 applic Ergocalciferol (Drisdol -) 50,000 unit PO Q7D@1000 RADHA Famotidine (Acid Delivery Room Supervisor) 10 mg PO DAILY [facility] Last Admin: 06/08/19 10:00 Dose: Not Given Meropenem 500 mg/ Dextrose 100 mls @ 200 mls/hr IVPB Q12H [facility] Last Admin: 06/08/19 05:02 Dose: 200 mls/hr Norepinephrine Bitartrate 8, (000 mcg/ Dextrose) 500 mls @ 8.62 mls/hr IV ASDIR [facility]; Protocol Last Titration: 06/08/19 03:46 Dose: 0 mcg/kg/min, 0 mls/hr Lactulose (Cephulac (Oral Use)) 20 gm PO TID [facility] Last Admin: 06/07/19 22:45 Dose: 20 gm Methylprednisolone Sodium Succinate (Solu-Medrol -) 40 mg IVPUSH Q8H-IV [facility] Midodrine (Proamatine -) 5 mg PO BID PRN PRN Reason: MAP<65mm Hg OR SBP <90 Last Admin: 06/05/19 14:22 Dose: 5 mg Mupirocin (Bactroban Ointment (For Decolonization) -) 1 applic NS BID [facility] Stop: 06/08/19 21:59 Last Admin: 06/08/19 10:44 Dose: 1 applic Nystatin (Mycostatin Ointment -) 1 applic TP BID [facility] Last Admin: 06/07/19 22:46 Dose: 1 applic Phytonadione (Mephyton -) 5 mg PO DAILY [facility] Last Admin: 06/08/19 10:00 Dose: Not Given Polyethylene Glycol (Miralax (For Daily Use) -) 17 gm PO BID PRN PRN Reason: CONSTIPATION Rifaximin (Xifaxan -) 550 mg PO BID [facility] Last Admin: 06/08/19 10:00 Dose: Not Given Sodium Bicarbonate (Sodium Bicarbonate -) 650 mg PO TID [facility] Last Admin: 06/07/19 22:45 Dose: 650 mg ASSESSMENT AND PLAN: Acute Hypoxic Respiratory Failure Pneumonia UTI Severe Sepsis Lactic Acidosis Acute on Chronic Renal Failure Hep C Liver Cirrhosis Ascites Coagulopathy Anemia/Thrombocytopenia COPD h/o DVT - continue antibiotics - off pressors, maintain MAP >65 - IVF boluses as needed - vitamin K - s/p paracentesis - titrate HFOT to keep SpO2 >90% - taper empiric medrol - inhaled bronchodilators - monitor CBC, coags - continue ICU monitoring for tenuous hemodynamics critical care time spent in reviewing chart, evaluating patient and formulating plan 35 min
--- NOTE | 2019-06-08 14:56 | PN ---
Progress Note, Physician Chief Complaint: Acute respiratory failure Liver cirrhosis Acute on chronic renal failure History of Present Illness: NAD Family at bedside congested Hungry asking for food Generalized weeping edema - Current Medication List Current Medications: Active Medications Albuterol Sulfate (Ventolin 0.083% Nebulizer Soln -) 1 amp NEB Q4H PRN PRN Reason: SHORT OF BREATH/WHEEZING Albuterol/Ipratropium (Duoneb -) 1 amp NEB RQ4H [facility] Last Admin: 06/08/19 12:55 Dose: 1 amp Calcium Acetate (Phoslo -) 667 mg PO TIDCM [facility] Last Admin: 06/08/19 12:00 Dose: Not Given Chlorhexidine Gluconate (Hibiclens For Decolonization -) 1 applic TP HS [facility] Last Admin: 06/07/19 22:45 Dose: 1 applic Ergocalciferol (Drisdol -) 50,000 unit PO Q7D@1000 [facility] Famotidine (Acid Cinder Block Mason) 10 mg PO DAILY [facility] Last Admin: 06/08/19 10:00 Dose: Not Given Meropenem 500 mg/ Dextrose 100 mls @ 200 mls/hr IVPB Q12H [facility] Last Admin: 06/08/19 05:02 Dose: 200 mls/hr Norepinephrine Bitartrate 8, (000 mcg/ Dextrose) 500 mls @ 8.62 mls/hr IV ASDIR [facility]; Protocol Last Titration: 06/08/19 03:46 Dose: 0 mcg/kg/min, 0 mls/hr Lactulose (Cephulac (Oral Use)) 20 gm PO TID [facility] Last Admin: 06/07/19 22:45 Dose: 20 gm Methylprednisolone Sodium Succinate (Solu-Medrol -) 40 mg IVPUSH Q8H-IV [facility] Midodrine (Proamatine -) 5 mg PO BID PRN PRN Reason: MAP<65mm Hg OR SBP <90 Last Admin: 06/05/19 14:22 Dose: 5 mg Mupirocin (Bactroban Ointment (For Decolonization) -) 1 applic NS BID [facility] Stop: 06/08/19 21:59 Last Admin: 06/08/19 10:44 Dose: 1 applic Nystatin (Mycostatin Ointment -) 1 applic TP BID [facility] Last Admin: 06/07/19 22:46 Dose: 1 applic Phytonadione (Mephyton -) 5 mg PO DAILY [facility] Last Admin: 06/08/19 10:00 Dose: Not Given Polyethylene Glycol (Miralax (For Daily Use) -) 17 gm PO BID PRN PRN Reason: CONSTIPATION Rifaximin (Xifaxan -) 550 mg PO BID [facility] Last Admin: 06/08/19 10:00 Dose: Not Given Sodium Bicarbonate (Sodium Bicarbonate -) 650 mg PO TID [facility] Last Admin: 06/07/19 22:45 Dose: 650 mg - Objective Vital Signs: Vital Signs Temperature 97.8 F 06/08/19 14:00 Pulse Rate 85 06/08/19 14:00 Respiratory Rate 19 06/08/19 14:00 Blood Pressure 96/46 L 06/08/19 14:00 O2 Sat by Pulse Oximetry (%) 92 L 06/08/19 09:00 Constitutional: Yes: Well Nourished, No Distress, Calm, Other (weak appearing) Cardiovascular: Yes: Regular Rate and Rhythm Respiratory: Yes: Cough, Rhonchi (diffuse), SOB, Other (on high flow O2 at 60 LPM) Gastrointestinal: Yes: Normal Bowel Sounds, Soft Genitourinary: Yes: Laguerre Present Musculoskeletal: Yes: Muscle Weakness Extremities: Yes: WNL Edema: Yes (generalized) Peripheral Pulses WNL: Yes Neurological: Yes: Alert, Confusion Psychiatric: Yes: Alert Labs: CBC, BMP 06/08/19 09:00 06/08/19 09:00 INR, PTT INR 2.16 (0.83-1.09) H 06/07/19 05:00 Problem List - Problems (1) Acute kidney injury superimposed on CKD Assessment/Plan: -correct potassium as per nephrology -hydration -Nephrology on board Code(s): N17.9 - ACUTE KIDNEY FAILURE, UNSPECIFIED; N18.9 - CHRONIC KIDNEY DISEASE, UNSPECIFIED (2) Ascites Assessment/Plan: -Seen by GI -S/P Paracentesis 3 L removed -Vitamin k daily Problems reviewed: Yes Code(s): R18.8 - OTHER ASCITES (3) Pneumonia Assessment/Plan: -ID consult -icu management for respiratory status -bipap PRN -IV meropenem -Medrol tapering dose Problems reviewed: Yes Code(s): J18.9 - PNEUMONIA, UNSPECIFIED ORGANISM Qualifiers: Pneumonia type: due to unspecified organism Laterality: left Lung location: lower lobe of lung Qualified Code(s): J18.9 - Pneumonia, unspecified organism (4) Sepsis Assessment/Plan: -IV abx- meropenem -ID consult -Off pressers, keep MAP >65 mm Hg -monitor labs -Palliative care -bronchodilators Problems reviewed: Yes Code(s): A41.9 - SEPSIS, UNSPECIFIED ORGANISM (5) CKD (chronic kidney disease) Assessment/Plan: -nephrology on board -monitor labs Problems reviewed: Yes Code(s): N18.9 - CHRONIC KIDNEY DISEASE, UNSPECIFIED Assessment/Plan See problem list
--- NOTE | 2019-06-08 15:17 | PN ---
Physical Exam: SUBJECTIVE: Patient seen this morning, confused, no events over night. OBJECTIVE: Vital Signs Period Temp Pulse Resp BP Sys/Bolaños Pulse Ox Last 24 Hr 97.8 F-98.0 F 70-101 14-28 91-118/46-77 92-94 GENERAL: confused EYES: PERRL, extraocular movements intact, LUNGS: Breath sounds equal, clear to auscultation bilaterally, no wheezes, no crackles, no accessory muscle use. HEART: Regular rate and rhythm, S1, S2 without murmur, rub or gallop. EXTREMITIES: arms wrapped SKIN: Warm, dry, normal turgor, no rashes or lesions noted CBC, BMP 06/08/19 09:00 06/08/19 09:00 Active Medications Albuterol Sulfate (Ventolin 0.083% Nebulizer Soln -) 1 amp NEB Q4H PRN PRN Reason: SHORT OF BREATH/WHEEZING Albuterol/Ipratropium (Duoneb -) 1 amp NEB RQ4H [facility] Last Admin: 06/08/19 12:55 Dose: 1 amp Calcium Acetate (Phoslo -) 667 mg PO TIDCM [facility] Last Admin: 06/08/19 12:00 Dose: Not Given Chlorhexidine Gluconate (Hibiclens For Decolonization -) 1 applic TP HS [facility] Last Admin: 06/07/19 22:45 Dose: 1 applic Ergocalciferol (Drisdol -) 50,000 unit PO Q7D@1000 [facility] Famotidine (Acid Power Electronics Engineer) 10 mg PO DAILY [facility] Last Admin: 06/08/19 10:00 Dose: Not Given Meropenem 500 mg/ Dextrose 100 mls @ 200 mls/hr IVPB Q12H [facility] Last Admin: 06/08/19 05:02 Dose: 200 mls/hr Norepinephrine Bitartrate 8, (000 mcg/ Dextrose) 500 mls @ 8.62 mls/hr IV ASDIR [facility]; Protocol Last Titration: 06/08/19 03:46 Dose: 0 mcg/kg/min, 0 mls/hr Lactulose (Cephulac (Oral Use)) 20 gm PO TID [facility] Last Admin: 06/07/19 22:45 Dose: 20 gm Methylprednisolone Sodium Succinate (Solu-Medrol -) 40 mg IVPUSH Q8H-IV [facility] Midodrine (Proamatine -) 5 mg PO BID PRN PRN Reason: MAP<65mm Hg OR SBP <90 Last Admin: 06/05/19 14:22 Dose: 5 mg Mupirocin (Bactroban Ointment (For Decolonization) -) 1 applic NS BID [facility] Stop: 06/08/19 21:59 Last Admin: 06/08/19 10:44 Dose: 1 applic Nystatin (Mycostatin Ointment -) 1 applic TP BID [facility] Last Admin: 06/07/19 22:46 Dose: 1 applic Phytonadione (Mephyton -) 5 mg PO DAILY [facility] Last Admin: 06/08/19 10:00 Dose: Not Given Polyethylene Glycol (Miralax (For Daily Use) -) 17 gm PO BID PRN PRN Reason: CONSTIPATION Rifaximin (Xifaxan -) 550 mg PO BID [facility] Last Admin: 06/08/19 10:00 Dose: Not Given Sodium Bicarbonate (Sodium Bicarbonate -) 650 mg PO TID [facility] Last Admin: 06/07/19 22:45 Dose: 650 mg ASSESSMENT/PLAN: 68F PMH dementia, chronic UTI, HTN, decompensated HCV cirrhosis, CHF, COPD, DVT , who presents with acute hypoxic respiratory failure. Neuro: - likely 2/2 metabolic encephalopathy - continue lactulose and rifaxine - monitor for any changes in neuro Cardio: - history of CHF - volume status stable - pressure stable off pressors since early AM - continue midodrine Pulm: - acute hypoxic respiratory failure - ? PNA vs worsening COPD, continue abx - maintain O2 > 90, continue patient on high flow - duonebs prn - solu-medrol 40 q6h IV GI: - hx of cirrhosis, currently decompensated - Abdominal US- ascites, s/p paracentesis 3 L removed, negative for SBP - patient followed by GI - continue Rifaximen ID: - UCX ESBL, meropenem Renal : - hx CKD - + for ESBL UTI, continue abx - followed by nephro Heme: - thrombocytopenia likely 2/2 to chronic disease of cirrhosis - hold medical anticoagulation DVT: SCD's GI: famotidine Dispo: continue to monitor in ICU Visit type - Emergency Visit Emergency Visit: No - New Patient This patient is new to me today: Yes Date on this admission: 06/08/19 - Critical Care Critical Care patient: Yes Total Critical Care Time (in minutes): 40 Critical Care Statement: The care of this patient involved high complexity decision making to prevent further life threatening deterioration of the patient 's condition and/or to evaluate & treat vital organ system(s) failure or risk of failure. ATTENDING PHYSICIAN STATEMENT I saw and evaluated the patient. I reviewed the resident's note and discussed the case with the resident. I agree with the resident's findings and plan as documented. SUBJECTIVE: OBJECTIVE: ASSESSMENT AND PLAN:
[2019-06-08] MEDS: NOREPINEPHRINE BITARTRATE 8,000 MCG in DEXTROSE 5%-WATER - 492 ML IV SCH (15:45)
[2019-06-08] MEDS: NYSTATIN 100000 UNIT/GM TOPICAL OINTMENT 15 GM TUBE TP SCH ×2 (15:45→21:34)
[2019-06-08] MEDS: ALBUTEROL SO4 0.083% IH SOL 2.5 MG/3 ML VIAL.NEB. NEB SCH ×3 (16:33→20:45)
[2019-06-08] MEDS: ACETYLCYSTEINE 20% 200MG/ML 4 ML VIAL *FOR ORAL / INH USE ONLY NEB SCH (20:45)
--- NOTE | 2019-06-08 20:53 | PN ---
Progress Note (short form) - Note Progress Note: 1. DAVID 2. CKD 3. hep C cirrhosis 4. hyperkalemia 5. sepsis 6. ascites 7. hypervolemic hyponatremia 8. coagulopathy 9. hypernatremia 10. cryoglobulins Current Medications Acetylcysteine (Mucomyst 20 Oral / Inh Use Only*) 400 mg NEB RBID [facility] Albuterol Sulfate (Ventolin 0.083% Nebulizer Soln -) 1 amp NEB RQ4H [facility] Last Admin: 06/08/19 16:34 Dose: Not Given Calcium Acetate (Phoslo -) 667 mg PO TIDCM [facility] Last Admin: 06/08/19 17:22 Dose: Not Given Chlorhexidine Gluconate (Hibiclens For Decolonization -) 1 applic TP HS [facility] Last Admin: 06/07/19 22:45 Dose: 1 applic Famotidine (Acid Production Bow Maker) 10 mg PO DAILY [facility] Last Admin: 06/08/19 10:00 Dose: Not Given Meropenem 500 mg/ Dextrose 100 mls @ 200 mls/hr IVPB Q12H [facility] Last Admin: 06/08/19 17:37 Dose: 200 mls/hr Norepinephrine Bitartrate 8, (000 mcg/ Dextrose) 500 mls @ 8.62 mls/hr IV ASDIR [facility]; Protocol Last Admin: 06/08/19 15:45 Dose: Not Given Lactulose (Cephulac (Oral Use)) 20 gm PO TID [facility] Last Admin: 06/08/19 14:00 Dose: Not Given Methylprednisolone Sodium Succinate (Solu-Medrol -) 40 mg IVPUSH Q8H-IV [facility] Last Admin: 06/08/19 17:25 Dose: 40 mg Midodrine (Proamatine -) 5 mg PO BID PRN PRN Reason: MAP<65mm Hg OR SBP <90 Last Admin: 06/05/19 14:22 Dose: 5 mg Mupirocin (Bactroban Ointment (For Decolonization) -) 1 applic NS BID [facility] Stop: 06/08/19 21:59 Last Admin: 06/08/19 10:44 Dose: 1 applic Nystatin (Mycostatin Ointment -) 1 applic TP BID [facility] Last Admin: 06/08/19 15:45 Dose: 1 applic Phytonadione (Mephyton -) 5 mg PO DAILY [facility] Last Admin: 06/08/19 10:00 Dose: Not Given Polyethylene Glycol (Miralax (For Daily Use) -) 17 gm PO BID PRN PRN Reason: CONSTIPATION Rifaximin (Xifaxan -) 550 mg PO BID [facility] Last Admin: 06/08/19 10:00 Dose: Not Given Sodium Bicarbonate (Sodium Bicarbonate -) 650 mg PO TID [facility] Last Admin: 06/08/19 14:00 Dose: Not Given Last Vital Signs Temp Pulse Resp BP Pulse Ox 97.3 F L 84 23 H 99/49 L 94 L 06/08/19 18:00 06/08/19 20:00 06/08/19 20:00 06/08/19 20:00 06/08/19 20:11 Constitutional: Yes: Well Nourished, Calm, Mild Distress Cardiovascular: Yes: Regular Rate and Rhythm Respiratory: Yes: Regular Gastrointestinal: Yes: Normal Bowel Sounds, Soft, Ascites Genitourinary: Yes: Laguerre Present Musculoskeletal: Yes: Muscle Weakness Extremities: Yes: WNL Edema: Yes (generalized) Peripheral Pulses WNL: Yes Neurological: Yes: Alert, Lethargy Psychiatric: Yes: Alert CBC, BMP 06/08/19 09:00 06/08/19 09:00 IMP azotemia Liver disease Met acidosis tendency to hyperkalemia Plan- continue current tx
[2019-06-08] MEDS: CHLORHEXIDINE GLUCONATE 4% CLEANSER FOR DECOLONIZATION TP SCH (21:34)
[2019-06-08] MEDS ORDERED: ACETYLCYSTEINE 20% 200MG/ML 4 ML VIAL *FOR ORAL / INH USE ONLY NEB SCH (22:00)
[2019-06-09] MEDS: ALBUTEROL SO4 0.083% IH SOL 2.5 MG/3 ML VIAL.NEB. NEB SCH ×6 (00:25→20:58)
[2019-06-09] MEDS: methylPREDNISolone NA SUCC 40 MG/1 ML VIAL IVPUSH SCH ×3 (01:17→17:14)
[2019-06-09] MEDS: MEROPENEM 500 MG in DEXTROSE 5%-WATER 100 ML IVPB SCH ×2 (07:00→17:14)
[2019-06-09 07:36] LABS: HEMOGLOBIN 8.3 GM/dL (10.7-15.3); MCH 31.9 pg (25.7-33.7); MCHC 32.1 g/dl (32.0-36.0); MEAN CELL VOLUME 99.6 fl (80-96); MEAN PLT VOLUME 10.3 fl (7.5-11.1); PLATELET COUNT 44 K/MM3 (134-434); RBC 2.61 M/mm3 (3.60-5.2); WHITE BLOOD COUNT 17.6 K/mm3 (4.0-10.0)
[2019-06-09 07:50] LABS: ALBUMIN 1.9 g/dl (3.4-5.0); BILIRUBIN,TOTAL 2.8 mg/dL (0.2-1); CALCIUM 8.8 mg/dL (8.5-10.1); CREATININE 4.5 mg/dL (0.55-1.3); MAGNESIUM 2.2 mg/dL (1.8-2.4); PHOSPHOROUS 6.1 mg/dL (2.5-4.9); POTASSIUM 5.4 mmol/L (3.5-5.1); TOT PROT 4.8 g/dl (6.4-8.2)
[2019-06-09] MEDS: LACTULOSE 20 GM/30 ML UDC (FOR ORAL USE ONLY) PO SCH ×3 (07:50→21:21)
[2019-06-09 07:53] LABS: INR 1.9 (0.83-1.09); PROTHROMBIN TIME (PATIENT) 22.6 SEC (9.7-13.0)
[2019-06-09] MEDS: SODIUM BICARBONATE 650 MG TABLET PO SCH ×3 (07:58→21:21)
[2019-06-09] MEDS: ACETYLCYSTEINE 20% 200MG/ML 4 ML VIAL *FOR ORAL / INH USE ONLY NEB SCH ×2 (08:20→20:58)
[2019-06-09] MEDS ORDERED: MEROPENEM 500 MG VIAL (RESTRICTED TO ID) IVPB ONE ×2 (09:07→17:02)
[2019-06-09] MEDS ORDERED: DEXTROSE 5%-WATER 100 ML IVPB ONE ×2 (09:08→17:02)
[2019-06-09] MEDS: RIFAXIMIN 550 MG TABLET (UD) PO SCH ×2 (09:31→21:21)
[2019-06-09] MEDS: NYSTATIN 100000 UNIT/GM TOPICAL OINTMENT 15 GM TUBE TP SCH ×2 (09:32→22:12)
[2019-06-09] MEDS: FAMOTIDINE 10 MG TABLET PO SCH (09:33)
[2019-06-09] MEDS ORDERED: PT OWN MED DRAWER 7, Y5N ONE (10:06)
[2019-06-09] MEDS: PHYTONADIONE 5 MG TABLET PO SCH (10:09)
[2019-06-09] MEDS: CALCIUM ACETATE 667 MG CAPSULE (FP) PO SCH ×3 (10:11→17:13)
--- NOTE | 2019-06-09 11:06 | PN ---
Teaching Attending Note Name of Resident: Tenzin Cohen ATTENDING PHYSICIAN STATEMENT I saw and evaluated the patient. I reviewed the resident's note and discussed the case with the resident. I agree with the resident's findings and plan as documented. SUBJECTIVE: Pt seen and examined in the ICU. Remains on HFOT with 70% FiO2. OBJECTIVE: Vital Signs Period Temp Pulse Resp BP Sys/Bolaños Pulse Ox Last 24 Hr 97.3 F-98.0 F 74-87 17-23 85-112/46-81 94 Intake & Output 06/06/19 06/07/19 06/08/19 06/09/19 23:59 23:59 23:59 23:59 Intake Total 1134 192 267 Output Total 60 3075 125 Balance 1074 -2883 142 Weight 77.8 kg 78.2 kg 78.562 kg 76.1 kg Gen: tachypneic on HFOT Heart: RRR Lung: decreased breath sounds at the bases Abd: softly distended, nontender Ext: + edema CBC, BMP 06/09/19 05:52 06/09/19 05:52 Active Medications Acetylcysteine (Mucomyst 20 Oral / Inh Use Only*) 400 mg NEB RBID [facility] Last Admin: 06/09/19 08:20 Dose: 400 mg Albuterol Sulfate (Ventolin 0.083% Nebulizer Soln -) 1 amp NEB RQ4H [facility] Last Admin: 06/09/19 08:20 Dose: 1 amp Calcium Acetate (Phoslo -) 667 mg PO TIDCM [facility] Last Admin: 06/09/19 10:11 Dose: 667 mg Chlorhexidine Gluconate (Hibiclens For Decolonization -) 1 applic TP HS [facility] Last Admin: 06/08/19 21:34 Dose: 1 applic Famotidine (Acid Slide Attendant) 10 mg PO DAILY [facility] Last Admin: 06/09/19 09:33 Dose: 10 mg Meropenem 500 mg/ Dextrose 100 mls @ 200 mls/hr IVPB Q12H [facility] Last Admin: 06/09/19 07:00 Dose: 200 mls/hr Norepinephrine Bitartrate 8, (000 mcg/ Dextrose) 500 mls @ 8.62 mls/hr IV ASDIR [facility]; Protocol Last Admin: 06/08/19 15:45 Dose: Not Given Lactulose (Cephulac (Oral Use)) 20 gm PO TID [facility] Last Admin: 06/09/19 07:50 Dose: Not Given Methylprednisolone Sodium Succinate (Solu-Medrol -) 40 mg IVPUSH Q8H-IV [facility] Last Admin: 06/09/19 09:31 Dose: 40 mg Midodrine (Proamatine -) 5 mg PO BID PRN PRN Reason: MAP<65mm Hg OR SBP <90 Last Admin: 06/05/19 14:22 Dose: 5 mg Nystatin (Mycostatin Ointment -) 1 applic TP BID [facility] Last Admin: 06/09/19 09:32 Dose: 1 applic Phytonadione (Mephyton -) 5 mg PO DAILY [facility] Last Admin: 06/09/19 10:09 Dose: 5 mg Polyethylene Glycol (Miralax (For Daily Use) -) 17 gm PO BID PRN PRN Reason: CONSTIPATION Rifaximin (Xifaxan -) 550 mg PO BID [facility] Last Admin: 06/09/19 09:31 Dose: 550 mg Sodium Bicarbonate (Sodium Bicarbonate -) 650 mg PO TID [facility] Last Admin: 06/09/19 07:58 Dose: 650 mg ASSESSMENT AND PLAN: Acute Hypoxic Respiratory Failure Pneumonia UTI Severe Sepsis Lactic Acidosis Acute on Chronic Renal Failure Hep C Liver Cirrhosis Ascites Coagulopathy Anemia/Thrombocytopenia COPD h/o DVT - continue antibiotics - off pressors, maintain MAP >65 - IVF boluses as needed - s/p paracentesis - titrate HFOT to keep SpO2 >90% - taper empiric medrol - inhaled bronchodilators - monitor CBC, coags - continue ICU monitoring critical care time spent in reviewing chart, evaluating patient and formulating plan 35 min
--- NOTE | 2019-06-09 11:53 | PN ---
Progress Note, Physician History of Present Illness: AWAKE, BREATHING NON LABORED ON HIGH FLOW O2 OFFERS NO COMPLAINTS WBC REMAINS ELEVATED - Current Medication List Current Medications: Active Medications Acetylcysteine (Mucomyst 20 Oral / Inh Use Only*) 400 mg NEB RBID [facility] Last Admin: 06/09/19 08:20 Dose: 400 mg Albuterol Sulfate (Ventolin 0.083% Nebulizer Soln -) 1 amp NEB RQ4H [facility] Last Admin: 06/09/19 08:20 Dose: 1 amp Calcium Acetate (Phoslo -) 667 mg PO TIDCM [facility] Last Admin: 06/09/19 11:18 Dose: 667 mg Chlorhexidine Gluconate (Hibiclens For Decolonization -) 1 applic TP HS [facility] Last Admin: 06/08/19 21:34 Dose: 1 applic Famotidine (Acid Commercial Lines Sales Executive) 10 mg PO DAILY [facility] Last Admin: 06/09/19 09:33 Dose: 10 mg Meropenem 500 mg/ Dextrose 100 mls @ 200 mls/hr IVPB Q12H [facility] Last Admin: 06/09/19 07:00 Dose: 200 mls/hr Norepinephrine Bitartrate 8, (000 mcg/ Dextrose) 500 mls @ 8.62 mls/hr IV ASDIR [facility]; Protocol Last Admin: 06/08/19 15:45 Dose: Not Given Lactulose (Cephulac (Oral Use)) 20 gm PO TID [facility] Last Admin: 06/09/19 07:50 Dose: Not Given Methylprednisolone Sodium Succinate (Solu-Medrol -) 40 mg IVPUSH Q8H-IV [facility] Last Admin: 06/09/19 09:31 Dose: 40 mg Midodrine (Proamatine -) 5 mg PO BID PRN PRN Reason: MAP<65mm Hg OR SBP <90 Last Admin: 06/05/19 14:22 Dose: 5 mg Nystatin (Mycostatin Ointment -) 1 applic TP BID [facility] Last Admin: 06/09/19 09:32 Dose: 1 applic Phytonadione (Mephyton -) 5 mg PO DAILY [facility] Last Admin: 06/09/19 10:09 Dose: 5 mg Polyethylene Glycol (Miralax (For Daily Use) -) 17 gm PO BID PRN PRN Reason: CONSTIPATION Rifaximin (Xifaxan -) 550 mg PO BID [facility] Last Admin: 06/09/19 09:31 Dose: 550 mg Sodium Bicarbonate (Sodium Bicarbonate -) 650 mg PO TID [facility] Last Admin: 06/09/19 07:58 Dose: 650 mg - Objective Vital Signs: Vital Signs Temperature 97.3 F L 06/09/19 10:00 Pulse Rate 74 06/09/19 10:00 Respiratory Rate 22 H 06/09/19 10:00 Blood Pressure 112/81 06/09/19 10:00 O2 Sat by Pulse Oximetry (%) 94 L 06/08/19 20:11 Constitutional: Yes: No Distress Cardiovascular: Yes: Regular Rate and Rhythm, S1, S2 Respiratory: Yes: Diminished Gastrointestinal: Yes: Normal Bowel Sounds, Soft. No: Tenderness Edema: No Labs: CBC, BMP 06/09/19 05:52 06/09/19 05:52 INR, PTT INR 1.90 (0.83-1.09) H 06/09/19 05:52 Assessment/Plan RESPIRATORY FAILURE PNEUMONIA LEUKOCYTOSIS UTI DAVID CIRRHOSIS CONTINUE MEROPENEM
--- NOTE | 2019-06-09 12:30 | PN ---
Physical Exam: SUBJECTIVE: Patient seen and examined OBJECTIVE: Vital Signs Period Temp Pulse Resp BP Sys/Bolaños Pulse Ox Last 24 Hr 97.3 F-98.0 F 74-87 17-23 85-112/46-81 94 GENERAL: The patient is awake, alert, in no acute distress. HEAD: Normal with no signs of trauma. EYES: PERRL, extraocular movements intact, sclera anicteric, conjunctiva clear. No ptosis. ENT: Ears normal, nares patent, oropharynx clear without exudates, moist mucous membranes. NECK: Trachea midline LUNGS: rhonchil bilaterally HEART: Regular rate and rhythm, S1, S2 without murmur, rub or gallop. ABDOMEN: Soft,distended veins. nontender to palpation. EXTREMITIES: 2+ pulses, warm, well-perfused, pitting pedal edema NEUROLOGICAL: Cranial nerves II through XII grossly intact. PSYCH: Normal mood, normal affect. SKIN: Warm, dry, normal turgor, no rashes or lesions noted Laboratory Results - last 24 hr 06/09/19 06/09/19 06/09/19 05:52 05:52 05:52 WBC 17.6 H RBC 2.61 L Hgb 8.3 L Hct 26.0 L MCV 99.6 H MCH 31.9 MCHC 32.1 RDW 18.0 H Plt Count 44 L MPV 10.3 PT with INR 22.60 H INR 1.90 H Sodium 137 Potassium 5.4 H Chloride 111 H Carbon Dioxide 13 L Anion Gap 13 BUN 72.0 H Creatinine 4.5 H Est GFR (CKD-EPI)AfAm 10.88 Est GFR (CKD-EPI)NonAf 9.39 Random Glucose 97 Calcium 8.8 Phosphorus 6.1 H Magnesium 2.2 Total Bilirubin 2.8 H AST 52 H ALT 28 Alkaline Phosphatase 135 H Total Protein 4.8 L Albumin 1.9 L Active Medications Generic Name Dose Route Start Last Admin Trade Name Freq PRN Reason Stop Dose Admin Acetylcysteine 400 mg 06/08/19 20:00 06/09/19 08:20 Mucomyst 20 Oral / Inh Use Only* NEB 400 mg RBID [facility] Administration Albuterol Sulfate 1 amp 06/08/19 15:30 06/09/19 12:07 Ventolin 0.083% Nebulizer Soln - NEB 1 amp RQ4H [facility] Administration Calcium Acetate 667 mg 06/03/19 17:30 06/09/19 11:18 Phoslo - PO 667 mg TIDCM [facility] Administration Chlorhexidine Gluconate 1 applic 06/03/19 22:00 06/08/19 21:34 Hibiclens For Decolonization - TP 1 applic HS [facility] Administration Famotidine 10 mg 06/04/19 10:00 06/09/19 09:33 Acid Metal Rolling Mill Operator PO 10 mg DAILY [facility] Administration Meropenem 500 mg/ Dextrose 100 mls @ 200 mls/hr 06/03/19 17:15 06/09/19 07:00 IVPB 200 mls/hr Q12H [facility] Administration Norepinephrine Bitartrate 8, 500 mls @ 8.62 mls/hr 06/05/19 15:45 06/08/19 15 :45 000 mcg/ Dextrose IV Not Given ASDIR [facility] Protocol 0.03 MCG/KG/MIN Lactulose 20 gm 06/04/19 20:45 06/09/19 07:50 Cephulac (Oral Use) PO Not Given TID [facility] Methylprednisolone Sodium Succinate 40 mg 06/08/19 18:00 06/09/19 09:31 Solu-Medrol - IVPUSH 40 mg Q8H-IV [facility] Administration Midodrine 5 mg 06/03/19 23:02 06/05/19 14:22 Proamatine - PO 5 mg BID PRN Administration MAP<65mm Hg OR SBP <90 Nystatin 1 applic 06/05/19 11:24 06/09/19 09:32 Mycostatin Ointment - TP 1 applic BID [facility] Administration Phytonadione 5 mg 06/05/19 11:45 06/09/19 10:09 Mephyton - PO 5 mg DAILY [facility] Administration Polyethylene Glycol 17 gm 06/03/19 16:17 Miralax (For Daily Use) - PO BID PRN CONSTIPATION Rifaximin 550 mg 06/03/19 22:00 06/09/19 09:31 Xifaxan - PO 550 mg BID [facility] Administration Sodium Bicarbonate 650 mg 06/07/19 08:00 06/09/19 07:58 Sodium Bicarbonate - PO 650 mg TID [facility] Administration ASSESSMENT/PLAN: 68 y/o F with dementia, chronic UTI, HTN decompensated HCV cirrhosis, CHF, COPD , DVT , acute hypoxic respiratory failure CV pressure stable, pt off levophed midodrine continued Pulm day 7 of antibiotics continue as directed duonebs prn solumedrol q6h IV on high flow O2 at 70% FiO2 keep spo2> 90% GI s/p paracentesis on 06/07 was negative for SBP FEN: monitor electrolytes Heme hold anticoagulation due to thrombocytopenia. DVT prophylaxis: SCD's Lines: Placed 06/05 Visit type - Emergency Visit Emergency Visit: Yes ED Registration Date: 06/03/19 Care time: The patient presented to the Emergency Department on the above date and was hospitalized for further evaluation of their emergent condition. - New Patient This patient is new to me today: No - Critical Care Critical Care patient: No - Discharge Referral Referred to [facility] No ATTENDING PHYSICIAN STATEMENT I saw and evaluated the patient. I reviewed the resident's note and discussed the case with the resident. I agree with the resident's findings and plan as documented. SUBJECTIVE: OBJECTIVE: ASSESSMENT AND PLAN:
--- NOTE | 2019-06-09 13:15 | PN ---
Progress Note, Physician Chief Complaint: Acute respiratory failure Liver cirrhosis Acute on chronic renal failure History of Present Illness: Mildly tachypniec, on HFOT at 60% Family at bedside congested Hungry asking for food Generalized weeping edema -remains off levophed - Current Medication List Current Medications: Active Medications Acetylcysteine (Mucomyst 20 Oral / Inh Use Only*) 400 mg NEB RBID RADHA Last Admin: 06/09/19 08:20 Dose: 400 mg Albuterol Sulfate (Ventolin 0.083% Nebulizer Soln -) 1 amp NEB RQ4H RADHA Last Admin: 06/09/19 12:07 Dose: 1 amp Calcium Acetate (Phoslo -) 667 mg PO TIDCM RADHA Last Admin: 06/09/19 11:18 Dose: 667 mg Chlorhexidine Gluconate (Hibiclens For Decolonization -) 1 applic TP HS RADHA Last Admin: 06/08/19 21:34 Dose: 1 applic Famotidine (Acid Timber Mill Worker) 10 mg PO DAILY RADHA Last Admin: 06/09/19 09:33 Dose: 10 mg Meropenem 500 mg/ Dextrose 100 mls @ 200 mls/hr IVPB Q12H RADHA Last Admin: 06/09/19 07:00 Dose: 200 mls/hr Norepinephrine Bitartrate 8, (000 mcg/ Dextrose) 500 mls @ 8.62 mls/hr IV ASDIR RADHA; Protocol Last Admin: 06/08/19 15:45 Dose: Not Given Lactulose (Cephulac (Oral Use)) 20 gm PO TID RADHA Last Admin: 06/09/19 07:50 Dose: Not Given Methylprednisolone Sodium Succinate (Solu-Medrol -) 40 mg IVPUSH Q8H-IV RADHA Last Admin: 06/09/19 09:31 Dose: 40 mg Midodrine (Proamatine -) 5 mg PO BID PRN PRN Reason: MAP<65mm Hg OR SBP <90 Last Admin: 06/05/19 14:22 Dose: 5 mg Nystatin (Mycostatin Ointment -) 1 applic TP BID RADHA Last Admin: 06/09/19 09:32 Dose: 1 applic Phytonadione (Mephyton -) 5 mg PO DAILY RADHA Last Admin: 06/09/19 10:09 Dose: 5 mg Polyethylene Glycol (Miralax (For Daily Use) -) 17 gm PO BID PRN PRN Reason: CONSTIPATION Rifaximin (Xifaxan -) 550 mg PO BID [facility] Last Admin: 06/09/19 09:31 Dose: 550 mg Sodium Bicarbonate (Sodium Bicarbonate -) 650 mg PO TID [facility] Last Admin: 06/09/19 07:58 Dose: 650 mg - Objective Vital Signs: Vital Signs Temperature 97.3 F L 06/09/19 10:00 Pulse Rate 74 06/09/19 12:00 Respiratory Rate 22 H 06/09/19 12:00 Blood Pressure 106/51 L 06/09/19 12:00 O2 Sat by Pulse Oximetry (%) 94 L 06/08/19 20:11 Constitutional: Yes: Well Nourished, Calm, Mild Distress Cardiovascular: Yes: Regular Rate and Rhythm Respiratory: Yes: Regular Gastrointestinal: Yes: Normal Bowel Sounds, Soft, Ascites Genitourinary: Yes: Laguerre Present Musculoskeletal: Yes: Muscle Weakness Extremities: Yes: WNL Edema: Yes (generalized) Peripheral Pulses WNL: Yes Neurological: Yes: Alert, Lethargy Psychiatric: Yes: Alert Labs: CBC, BMP 06/09/19 05:52 06/09/19 05:52 INR, PTT INR 1.90 (0.83-1.09) H 06/09/19 05:52 Problem List - Problems (1) Acute kidney injury superimposed on CKD Assessment/Plan: -correct potassium as per nephrology -hydration -Nephrology on board Problems reviewed: Yes Code(s): N17.9 - ACUTE KIDNEY FAILURE, UNSPECIFIED; N18.9 - CHRONIC KIDNEY DISEASE, UNSPECIFIED (2) Ascites Assessment/Plan: -Seen by GI -S/P Paracentesis 3 L removed -Vitamin k daily Problems reviewed: Yes Code(s): R18.8 - OTHER ASCITES (3) Pneumonia Assessment/Plan: -ID consult -icu management for respiratory status -bipap PRN -IV meropenem -Medrol tapering dose Problems reviewed: Yes Code(s): J18.9 - PNEUMONIA, UNSPECIFIED ORGANISM Qualifiers: Pneumonia type: due to unspecified organism Laterality: left Lung location: lower lobe of lung Qualified Code(s): J18.9 - Pneumonia, unspecified organism (4) Sepsis Assessment/Plan: -IV abx- meropenem -ID consult -Off pressers, keep MAP >65 mm Hg -monitor labs -Palliative care -bronchodilators Problems reviewed: Yes Code(s): A41.9 - SEPSIS, UNSPECIFIED ORGANISM (5) CKD (chronic kidney disease) Assessment/Plan: -nephrology on board -monitor labs Problems reviewed: Yes Code(s): N18.9 - CHRONIC KIDNEY DISEASE, UNSPECIFIED (6) Hyponatremia Assessment/Plan: -resolved Problems reviewed: Yes Code(s): E87.1 - HYPO-OSMOLALITY AND HYPONATREMIA (7) Lactic acidosis Assessment/Plan: -multifactorial Problems reviewed: Yes Code(s): E87.2 - ACIDOSIS Assessment/Plan see problem list
[2019-06-09 15:01] VITALS: BMI 28.6
--- NOTE | 2019-06-09 17:58 | PN ---
Progress Note (short form) - Note Progress Note: 1. DAVID 2. CKD 3. hep C cirrhosis 4. hyperkalemia 5. sepsis 6. ascites 7. hypervolemic hyponatremia 8. coagulopathy 9. hypernatremia 10. cryoglobulins Active Medications Acetylcysteine (Mucomyst 20 Oral / Inh Use Only*) 400 mg NEB RBID RADHA Last Admin: 06/09/19 08:20 Dose: 400 mg Albuterol Sulfate (Ventolin 0.083% Nebulizer Soln -) 1 amp NEB RQ4H ARDHA Last Admin: 06/09/19 17:21 Dose: 1 amp Calcium Acetate (Phoslo -) 667 mg PO TIDCM RADHA Last Admin: 06/09/19 17:13 Dose: Not Given Chlorhexidine Gluconate (Hibiclens For Decolonization -) 1 applic TP HS [facility] Last Admin: 06/08/19 21:34 Dose: 1 applic Famotidine (Acid Comb Winder) 10 mg PO DAILY [facility] Last Admin: 06/09/19 09:33 Dose: 10 mg Meropenem 500 mg/ Dextrose 100 mls @ 200 mls/hr IVPB Q12H RADHA Last Admin: 06/09/19 17:14 Dose: 200 mls/hr Norepinephrine Bitartrate 8, (000 mcg/ Dextrose) 500 mls @ 8.62 mls/hr IV ASDIR RADHA; Protocol Last Admin: 06/08/19 15:45 Dose: Not Given Lactulose (Cephulac (Oral Use)) 20 gm PO TID [facility] Last Admin: 06/09/19 14:01 Dose: 20 gm Methylprednisolone Sodium Succinate (Solu-Medrol -) 40 mg IVPUSH Q8H-IV RADHA Last Admin: 06/09/19 17:14 Dose: 40 mg Midodrine (Proamatine -) 5 mg PO BID PRN PRN Reason: MAP<65mm Hg OR SBP <90 Last Admin: 06/05/19 14:22 Dose: 5 mg Nystatin (Mycostatin Ointment -) 1 applic TP BID [facility] Last Admin: 06/09/19 09:32 Dose: 1 applic Phytonadione (Mephyton -) 5 mg PO DAILY [facility] Last Admin: 06/09/19 10:09 Dose: 5 mg Polyethylene Glycol (Miralax (For Daily Use) -) 17 gm PO BID PRN PRN Reason: CONSTIPATION Rifaximin (Xifaxan -) 550 mg PO BID [facility] Last Admin: 06/09/19 09:31 Dose: 550 mg Sodium Bicarbonate (Sodium Bicarbonate -) 650 mg PO TID [facility] Last Admin: 06/09/19 14:02 Dose: 650 mg Last Vital Signs Temp Pulse Resp BP Pulse Ox 97 F L 76 22 H 93/44 L 94 L 06/09/19 13:13 06/09/19 13:13 06/09/19 13:13 06/09/19 13:13 06/08/19 20:11 Constitutional: Yes: Well Nourished, Calm, Mild Distress Cardiovascular: Yes: Regular Rate and Rhythm Respiratory: Yes: Regular Gastrointestinal: Yes: Normal Bowel Sounds, Soft, Ascites Genitourinary: Yes: Laguerre Present Musculoskeletal: Yes: Muscle Weakness Extremities: Yes: WNL Edema: Yes (generalized) Peripheral Pulses WNL: Yes Neurological: Yes: Alert, Lethargy Psychiatric: Yes: Alert CBC, BMP 06/08/19 09:00 06/08/19 09:00 IMP azotemia worsening Hyperkalemia Hypotensive Underlying Liver disease Met acidosis NAGMA renal failure/GI bicarb losses Plan- add kayexalate 15 gm daily to regimen (enterally or by enema) if not tolerating enteral route if going for hospice, consider stopping lab tests
[2019-06-09] MEDS: CHLORHEXIDINE GLUCONATE 4% CLEANSER FOR DECOLONIZATION TP SCH (22:11)
[2019-06-10] MEDS: ALBUTEROL SO4 0.083% IH SOL 2.5 MG/3 ML VIAL.NEB. NEB SCH ×6 (00:30→20:30)
[2019-06-10] MEDS ORDERED: NOREPINEPHRINE BITARTRATE 4 MG/4 ML ML IV ONE (00:54)
[2019-06-10] MEDS: NOREPINEPHRINE BITARTRATE 8,000 MCG in DEXTROSE 5%-WATER - 492 ML IV SCH (01:06)
[2019-06-10] MEDS ORDERED: MEROPENEM 500 MG VIAL (RESTRICTED TO ID) IVPB ONE ×2 (01:29→19:43)
[2019-06-10] MEDS ORDERED: DEXTROSE 5%-WATER 100 ML IVPB ONE ×2 (01:29→19:43)
[2019-06-10] MEDS: methylPREDNISolone NA SUCC 40 MG/1 ML VIAL IVPUSH SCH ×3 (01:54→18:18)
[2019-06-10] MEDS: MEROPENEM 500 MG in DEXTROSE 5%-WATER 100 ML IVPB SCH ×3 (05:38→19:45)
[2019-06-10] MEDS: LACTULOSE 20 GM/30 ML UDC (FOR ORAL USE ONLY) PO SCH (05:58)
[2019-06-10] MEDS: SODIUM BICARBONATE 650 MG TABLET PO SCH (05:58)
[2019-06-10 06:43] LABS: BASO % 0.7 % (0-2.0); HEMATOCRIT 27.4 % (32.4-45.2); HEMOGLOBIN 8.8 GM/dL (10.7-15.3); MCH 32.2 pg (25.7-33.7); MEAN CELL VOLUME 100.4 fl (80-96); MEAN PLT VOLUME 9.2 fl (7.5-11.1); MONO % 1.4 % (3.8-10.2); NEUT % 96.9 % (42.8-82.8); PLATELET COUNT 59 K/MM3 (134-434); RBC 2.73 M/mm3 (3.60-5.2); RDW 18.6 % (11.6-15.6); WHITE BLOOD COUNT 24.3 K/mm3 (4.0-10.0)
[2019-06-10 06:50] LABS: INR 1.89 (0.83-1.09); PROTHROMBIN TIME (PATIENT) 22.4 SEC (9.7-13.0)
[2019-06-10 07:05] LABS: ALBUMIN 1.9 g/dl (3.4-5.0); BILIRUBIN,TOTAL 3.4 mg/dL (0.2-1); BLOOD UREA NITROGEN 80.8 mg/dL (7-18); CREATININE 4.9 mg/dL (0.55-1.3); MAGNESIUM 2.3 mg/dL (1.8-2.4); PHOSPHOROUS 6.7 mg/dL (2.5-4.9); POTASSIUM 5.6 mmol/L (3.5-5.1)
[2019-06-10] MEDS: ACETYLCYSTEINE 20% 200MG/ML 4 ML VIAL *FOR ORAL / INH USE ONLY NEB SCH ×2 (08:00→20:30)
[2019-06-10] MEDS ORDERED: SODIUM ZIRCONIUM CYCLOSILICATE (LOKELMA) 5 GM PACKET PO ONE (08:30)
[2019-06-10] MEDS ORDERED: PT OWN MED DRAWER 7, Y5N ONE ×2 (08:57→18:16)
[2019-06-10] MEDS: CALCIUM ACETATE 667 MG CAPSULE (FP) PO SCH ×2 (09:20→12:47)
[2019-06-10] MEDS: FAMOTIDINE 10 MG TABLET PO SCH (09:28)
[2019-06-10] MEDS: RIFAXIMIN 550 MG TABLET (UD) PO SCH (09:29)
[2019-06-10] MEDS ORDERED: ERGOCALCIFEROL (VIT D2) 50,000 UNIT (1.25 MG) CAPSULE PO SCH (10:00)
--- NOTE | 2019-06-10 10:00 | PN ---
Progress Note, Physician - Current Medication List Current Medications: Active Medications Acetylcysteine (Mucomyst 20 Oral / Inh Use Only*) 400 mg NEB RBID RADHA Last Admin: 06/10/19 08:00 Dose: 400 mg Albuterol Sulfate (Ventolin 0.083% Nebulizer Soln -) 1 amp NEB RQ4H RADHA Last Admin: 06/10/19 08:00 Dose: 1 amp Calcium Acetate (Phoslo -) 667 mg PO TIDCM COUNTS INCLUDE 234 BEDS AT THE [facility] Last Admin: 06/10/19 09:20 Dose: Not Given Chlorhexidine Gluconate (Hibiclens For Decolonization -) 1 applic TP HS [facility]S INCLUDE 234 BEDS AT THE [facility] Last Admin: 06/09/19 22:11 Dose: 1 applic Famotidine (Acid Workforce Staffing Advisor) 10 mg PO DAILY [facility]S [facility]CLUDE 234 BEDS AT THE [facility] Last Admin: 06/10/19 09:28 Dose: Not Given Meropenem 500 mg/ Dextrose 100 mls @ 200 mls/hr IVPB Q12H RADHA Last Admin: 06/10/19 05:38 Dose: 200 mls/hr Norepinephrine Bitartrate 8, (000 mcg/ Dextrose) 500 mls @ 18.75 mls/hr IV TITR RADHA; Protocol Last Titration: 06/10/19 06:00 Dose: 6 mcg/min, 22.5 mls/hr Lactulose (Cephulac (Oral Use)) 20 gm PO TID [facility]CLUDE 234 BEDS AT THE [facility] Last Admin: 06/10/19 05:58 Dose: Not Given Methylprednisolone Sodium Succinate (Solu-Medrol -) 40 mg IVPUSH Q8H-IV RADHA Last Admin: 06/10/19 09:18 Dose: 40 mg Midodrine (Proamatine -) 5 mg PO BID PRN PRN Reason: MAP<65mm Hg OR SBP <90 Last Admin: 06/05/19 14:22 Dose: 5 mg Nystatin (Mycostatin Ointment -) 1 applic TP BID [facility]CLUDE 234 BEDS AT [facility] Last Admin: 06/09/19 22:12 Dose: 1 applic Phytonadione (Mephyton -) 5 mg PO DAILY [facility]CLUDE 234 BEDS AT [facility] Last Admin: 06/09/19 10:09 Dose: 5 mg Polyethylene Glycol (Miralax (For Daily Use) -) 17 gm PO BID PRN PRN Reason: CONSTIPATION Rifaximin (Xifaxan -) 550 mg PO BID [facility]CLUDE 234 BEDS AT [facility] Last Admin: 06/10/19 09:29 Dose: Not Given Sodium Bicarbonate (Sodium Bicarbonate -) 650 mg PO TID [facility]CLUDE 234 BEDS AT [facility] Last Admin: 06/10/19 05:58 Dose: Not Given - Objective Vital Signs: Vital Signs Temperature 97.3 F L 06/10/19 08:00 Pulse Rate 96 H 06/10/19 08:39 Respiratory Rate 24 H 06/10/19 08:00 Blood Pressure 120/54 L 06/10/19 08:00 O2 Sat by Pulse Oximetry (%) 92 L 06/10/19 08:39 Cardiovascular: Yes: S1, S2 Respiratory: Yes: On Venti-Mask, Rhonchi Gastrointestinal: Yes: Normal Bowel Sounds, Soft Labs: CBC, BMP 06/10/19 05:47 06/10/19 06:00 INR, PTT INR 1.89 (0.83-1.09) H 06/10/19 05:47 Assessment/Plan - Problems (1) Acute kidney injury superimposed on CKD Assessment/Plan: -correct potassium as per nephrology -hydration -Nephrology on board Problems reviewed: Yes Code(s): N17.9 - ACUTE KIDNEY FAILURE, UNSPECIFIED; N18.9 - CHRONIC KIDNEY DISEASE, UNSPECIFIED (2) Ascites Assessment/Plan: -Seen by GI -S/P Paracentesis 3 L removed -Vitamin k daily Problems reviewed: Yes Code(s): R18.8 - OTHER ASCITES (3) Pneumonia Assessment/Plan: -ID consult -icu management for respiratory status -bipap PRN -IV meropenem -Medrol tapering dose Problems reviewed: Yes Code(s): J18.9 - PNEUMONIA, UNSPECIFIED ORGANISM Qualifiers: Pneumonia type: due to unspecified organism Laterality: left Lung location: lower lobe of lung Qualified Code(s): J18.9 - Pneumonia, unspecified organism (4) Sepsis Assessment/Plan: -IV abx- meropenem -ID consult -Off pressers, keep MAP >65 mm Hg -monitor labs -Palliative care -bronchodilators Problems reviewed: Yes Code(s): A41.9 - SEPSIS, UNSPECIFIED ORGANISM (5) CKD (chronic kidney disease) Assessment/Plan: -nephrology on board -monitor labs Problems reviewed: Yes Code(s): N18.9 - CHRONIC KIDNEY DISEASE, UNSPECIFIED (6) Hyponatremia Assessment/Plan: -resolved Problems reviewed: Yes Code(s): E87.1 - HYPO-OSMOLALITY AND HYPONATREMIA (7) Lactic acidosis Assessment/Plan: -multifactorial Problems reviewed: Yes Code(s): E87.2 - ACIDOSIS
[2019-06-10] MEDS: NYSTATIN 100000 UNIT/GM TOPICAL OINTMENT 15 GM TUBE TP SCH ×2 (10:18→22:09)
[2019-06-10] MEDS ORDERED: DEXTROSE 50%-WATER - 25 GM/50 ML VIAL IVPUSH ONE (10:40)
[2019-06-10] MEDS ORDERED: CALCIUM GLUCONATE 10% - 1,000 MG/10 ML VIAL IVPB ONE (10:40)
[2019-06-10] MEDS ORDERED: SODIUM POLYSTYRENE SULFONATE 15 GM/60 ML BOTTLE RC ONE (11:00)
[2019-06-10] MEDS ORDERED: FAMOTIDINE 20 MG/50 ML IVPB 20 MG/50 ML MG IVPB SCH (11:00)
[2019-06-10] MEDS ORDERED: INSULIN REGULAR HUMAN 100 UNITS/ML *VIAL IVPUSH ONE (11:00)
[2019-06-10] MEDS ORDERED: VASOPRESSIN 50 UNITS in SODIUM CHLORIDE 97.5 ML IVPB SCH (11:00)
--- NOTE | 2019-06-10 11:14 | PN ---
Physical Exam: SUBJECTIVE: Patient seen and examined in the morning. Patient was hypotensive overnight, and required addition of pressors to stabilize blood pressure. No events on telemetry monitoring. Patient complains of being hungry, no chest pain or abdominal pain. OBJECTIVE: Vital Signs Period Temp Pulse Resp BP Sys/Bolaños Pulse Ox Last 24 Hr 96.4 F-97.3 F 74-98 18-25 79-121/35-69 87-93 GENERAL: Awake and alert, on high flow oxygen. HEENT: atraumatic, normocephalic LUNGS: B/l scattered wheezes, fine crackles noted. HEART: S1 S2 present. No murmurs rubs or gallups. ABDOMEN: Less distended, no fluid shift. Non tender. MUSCULOSKELETAL: Normal range of motion at all joints. No bony deformities or tenderness. No CVA tenderness. EXTREMITIES: 2+ pulses, warm, well-perfused. No cyanosis. No clubbing. Cap refill <2 seconds. Scattered ecchymosis noted on b/l upper extremities. SKIN: Warm, dry, thin skin. Laboratory Results - last 24 hr 06/10/19 06/10/19 06/10/19 05:47 05:47 06:00 WBC 24.3 H RBC 2.73 L Hgb 8.8 L Hct 27.4 L MCV 100.4 H MCH 32.2 MCHC 32.0 RDW 18.6 H Plt Count 59 L D MPV 9.2 D Absolute Neuts (auto) 23.6 H Neutrophils % 96.9 H Lymphocytes % 1.0 L D Monocytes % 1.4 L D Eosinophils % 0.0 D Basophils % 0.7 Nucleated RBC % 1 H PT with INR 22.40 H INR 1.89 H Sodium 138 Potassium 5.6 H Chloride 109 H Carbon Dioxide 13 L Anion Gap 16 BUN 80.8 H Creatinine 4.9 H Est GFR (CKD-EPI)AfAm 9.81 Est GFR (CKD-EPI)NonAf 8.47 Random Glucose 105 Calcium 9.0 Phosphorus 6.7 H Magnesium 2.3 Total Bilirubin 3.4 H AST 51 H ALT 27 Alkaline Phosphatase 140 H Total Protein 5.0 L Albumin 1.9 L Active Medications Generic Name Dose Route Start Last Admin Trade Name Freq PRN Reason Stop Dose Admin Acetylcysteine 400 mg 06/08/19 20:00 06/10/19 08:00 Mucomyst 20 Oral / Inh Use Only* NEB 400 mg RBID RADHA Administration Albuterol Sulfate 1 amp 06/08/19 15:30 06/10/19 08:00 Ventolin 0.083% Nebulizer Soln - NEB 1 amp RQ4H RADHA Administration Calcium Acetate 667 mg 06/03/19 17:30 06/10/19 09:20 Phoslo - PO Not Given TIDCM RADHA Chlorhexidine Gluconate 1 applic 06/03/19 22:00 06/09/19 22:11 Hibiclens For Decolonization - TP 1 applic HS RADHA Administration Meropenem 500 mg/ Dextrose 100 mls @ 200 mls/hr 06/03/19 17:15 06/10/19 05:38 IVPB 200 mls/hr Q12H RADHA Administration Norepinephrine Bitartrate 8, 500 mls @ 18.75 mls/hr 06/10/19 00:30 06/10/19 06:00 000 mcg/ Dextrose IV 6 mcg/min TITR RADHA 22.5 mls/hr Titration Protocol 5 MCG/MIN Vasopressin 50 units/ Sodium 100 mls @ 24 mls/hr 06/10/19 11:00 Chloride IVPB TITR RADHA Protocol 0.2 UNITS/MIN Famotidine/Sodium Chloride 20 mg in 50 mls @ 100 mls/hr 06/10/19 11:15 Pepcid 20 Mg Premixed Ivpb - IVPB DAILY RADHA Lactulose 20 gm 06/04/19 20:45 06/10/19 05:58 Cephulac (Oral Use) PO Not Given TID RADHA Methylprednisolone Sodium Succinate 40 mg 06/08/19 18:00 06/10/19 09:18 Solu-Medrol - IVPUSH 40 mg Q8H-IV RADHA Administration Midodrine 5 mg 06/03/19 23:02 06/05/19 14:22 Proamatine - PO 5 mg BID PRN Administration MAP<65mm Hg OR SBP <90 Nystatin 1 applic 06/05/19 11:24 06/09/19 22:12 Mycostatin Ointment - TP 1 applic BID RADHA Administration Phytonadione 5 mg 06/05/19 11:45 06/09/19 10:09 Mephyton - PO 5 mg DAILY RADHA Administration Polyethylene Glycol 17 gm 06/03/19 16:17 Miralax (For Daily Use) - PO BID PRN CONSTIPATION Rifaximin 550 mg 06/03/19 22:00 06/10/19 09:29 Xifaxan - PO Not Given BID RADHA Sodium Bicarbonate 650 mg 06/07/19 08:00 06/10/19 05:58 Sodium Bicarbonate - PO Not Given TID [facility] ASSESSMENT/PLAN: 68F PMH dementia, chronic UTI, HTN, decompensated HCV cirrhosis, CHF, COPD, DVT , who presents with acute hypoxic respiratory failure. Pulm -Acute Hypoxic respiratory failure. -CXR is worsening. -High Flow oxygen at 82%, 60LPM -Duonebs PRN -Solu-Medrol 40 mg Q6H IV ID -Davis culture today. F/U Results. -Sepsis 2/2 HCAP/UTI (hx of ESBL UTI) -Meropenem -Repeat CXR today. F/U Results. -UA+ for nitrite, 3+ LE, 403 WBCs; Urine culture growing ESBL producing E.Coli -ID consulted, appreciate recs CV -Hx of CHF -On Levophed 6 mcg/min. -Vasopressin drip ordered. -No more IV fluids. GI -Hx of Decompensated HCV Cirrhosis -Abdominal U/S shows ascites present. -Paracentesis completed- patient had 3 bottles filled. Diagnostic studies pending show no SBP. -Rheumatology consulted, appreciate recs Renal -CKD -Hx of ESBL UTI -Nephro consulted -Cont IV abx -Family will not do HD. -Continue Bicarb Heme -Thrombocytopenia, likely 2/2 chronic disease in setting of cirrhosis/renal failure/sepsis -Was previously on Eliquis but was d/c'd due to nosebleed -Hold heparin products Neuro -Stable. Awake and alert. 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 -Not give rituximab due to cirrhosis. Lines: Right Central line in place from 06/05/19. DVT Prophylaxis: SCDS GI prophylaxis: Famotidine 20 mg IV Daily. F: Oral hydration E: Monitor CMP N: NPO aspiration risk Dispo: Monitoring in ICU Visit type - Emergency Visit Emergency Visit: Yes ED Registration Date: 06/03/19 Care time: The patient presented to the Emergency Department on the above date and was hospitalized for further evaluation of their emergent condition. - New Patient This patient is new to me today: No - Critical Care Critical Care patient: Yes Total Critical Care Time (in minutes): 45 Critical Care Statement: The care of this patient involved high complexity decision making to prevent further life threatening deterioration of the patient 's condition and/or to evaluate & treat vital organ system(s) failure or risk of failure. ATTENDING PHYSICIAN STATEMENT I saw and evaluated the patient. I reviewed the resident's note and discussed the case with the resident. I agree with the resident's findings and plan as documented. SUBJECTIVE: OBJECTIVE: ASSESSMENT AND PLAN:
[2019-06-10 11:26] LABS: ANISOCYTOSIS 2+; MACROCYTOSIS 1+; PLATELET ESTIMATE DECREASED; TARGET CELLS 1+
--- NOTE | 2019-06-10 11:34 | PN ---
Teaching Attending Note Name of Resident: Xin Richardson ATTENDING PHYSICIAN STATEMENT I saw and evaluated the patient. I reviewed the resident's note and discussed the case with the resident. I agree with the resident's findings and plan as documented. SUBJECTIVE: Pt seen and examined in the ICU. Remains on HFOT with 80% FiO2. Lethargic but arousable. Back on levophed gtt. OBJECTIVE: Vital Signs Period Temp Pulse Resp BP Sys/Bolaños Pulse Ox Last 24 Hr 96.4 F-97.3 F 74-98 18-25 79-121/35-69 87-93 Intake & Output 06/07/19 06/08/19 06/09/19 06/10/19 23:59 23:59 23:59 23:59 Intake Total 192 267 178 Output Total 3075 125 125 10 Balance -2883 142 -125 168 Weight 78.2 kg 78.562 kg 76.1 kg 73.539 kg Gen: tachypneic on HFOT Heart: RRR Lung: scattered rhonchi Abd: soft, nontender Ext: + edema CBC, BMP 06/10/19 05:47 06/10/19 06:00 Active Medications Acetylcysteine (Mucomyst 20 Oral / Inh Use Only*) 400 mg NEB RBID RADHA Last Admin: 06/10/19 08:00 Dose: 400 mg Albuterol Sulfate (Ventolin 0.083% Nebulizer Soln -) 1 amp NEB RQ4H RADHA Last Admin: 06/10/19 08:00 Dose: 1 amp Calcium Acetate (Phoslo -) 667 mg PO TIDCM RADHA Last Admin: 06/10/19 09:20 Dose: Not Given Chlorhexidine Gluconate (Hibiclens For Decolonization -) 1 applic TP HS RADHA Last Admin: 06/09/19 22:11 Dose: 1 applic Meropenem 500 mg/ Dextrose 100 mls @ 200 mls/hr IVPB Q12H RADHA Last Admin: 06/10/19 05:38 Dose: 200 mls/hr Norepinephrine Bitartrate 8, (000 mcg/ Dextrose) 500 mls @ 18.75 mls/hr IV TITR RADHA; Protocol Last Titration: 06/10/19 06:00 Dose: 6 mcg/min, 22.5 mls/hr Vasopressin 50 units/ Sodium (Chloride) 100 mls @ 24 mls/hr IVPB TITR RADHA; Protocol Famotidine/Sodium Chloride (Pepcid 20 Mg Premixed Ivpb -) 20 mg in 50 mls @ 100 mls/hr IVPB DAILY [facility] Lactulose (Cephulac (Oral Use)) 20 gm PO TID [facility] Last Admin: 06/10/19 05:58 Dose: Not Given Methylprednisolone Sodium Succinate (Solu-Medrol -) 40 mg IVPUSH Q8H-IV RADHA Last Admin: 06/10/19 09:18 Dose: 40 mg Midodrine (Proamatine -) 5 mg PO BID PRN PRN Reason: MAP<65mm Hg OR SBP <90 Last Admin: 06/05/19 14:22 Dose: 5 mg Nystatin (Mycostatin Ointment -) 1 applic TP BID [facility] Last Admin: 06/09/19 22:12 Dose: 1 applic Phytonadione (Mephyton -) 5 mg PO DAILY [facility] Last Admin: 06/09/19 10:09 Dose: 5 mg Polyethylene Glycol (Miralax (For Daily Use) -) 17 gm PO BID PRN PRN Reason: CONSTIPATION Rifaximin (Xifaxan -) 550 mg PO BID [facility] Last Admin: 06/10/19 09:29 Dose: Not Given Sodium Bicarbonate (Sodium Bicarbonate -) 650 mg PO TID [facility] Last Admin: 06/10/19 05:58 Dose: Not Given ASSESSMENT AND PLAN: Acute Hypoxic Respiratory Failure Pneumonia UTI Severe Sepsis Lactic Acidosis Acute on Chronic Renal Failure Hep C Liver Cirrhosis Ascites Coagulopathy Anemia/Thrombocytopenia COPD h/o DVT - continue antibiotics - start vasopressin gtt, maintain MAP >65 - s/p paracentesis - titrate HFOT to keep SpO2 >90% - taper empiric medrol - inhaled bronchodilators - monitor CBC, coags - continue ICU monitoring - poor overall prognosis critical care time spent in reviewing chart, evaluating patient and formulating plan 35 min
[2019-06-10] MEDS ORDERED: DEXTROSE 50%-WATER 25 GM/50 ML DISP.SYRIN ONE (11:55)
[2019-06-10] MEDS: VASOPRESSIN 50 UNITS in SODIUM CHLORIDE 97.5 ML IVPB SCH ×2 (12:09→23:40)
[2019-06-10] MEDS: PHYTONADIONE 5 MG TABLET PO SCH (12:47)
[2019-06-10] MEDS ORDERED: SODIUM BICARBONATE 8.4% 50 MEQ/50 ML VIAL IV SCH (13:00)
--- NOTE | 2019-06-10 13:25 | EKG ---
Test Reason : Blood Pressure : / mmHG Vent. Rate : 085 BPM Atrial Rate : 085 BPM P-R Int : 142 ms QRS Dur : 084 ms QT Int : 360 ms P-R-T Axes : 054 017 059 degrees QTc Int : 428 ms NORMAL SINUS RHYTHM NORMAL ECG WHEN COMPARED WITH ECG OF 03-JUN-2019 10:59, T WAVE VARIATION Confirmed by KERRY ARTHUR MD ([id number]) on 06/10/2019 1:25:36 PM Referred By: GEOVANNA CRANDALL DR Confirmed By:KERRY ARTHUR MD
[2019-06-10] MEDS: FAMOTIDINE 20 MG/50 ML IVPB 20 MG/50 ML MG IVPB SCH (13:49)
--- NOTE | 2019-06-10 14:04 | PN ---
Progress Note, Physician History of Present Illness: Pt seen and examined at bedside. She is doing poorly. She remains in the ICU. - Current Medication List Current Medications: Active Medications Acetylcysteine (Mucomyst 20 Oral / Inh Use Only*) 400 mg NEB RBID RADHA Last Admin: 06/10/19 08:00 Dose: 400 mg Albuterol Sulfate (Ventolin 0.083% Nebulizer Soln -) 1 amp NEB RQ4H RADHA Last Admin: 06/10/19 12:03 Dose: 1 amp Calcium Acetate (Phoslo -) 667 mg PO TIDCM RADHA Last Admin: 06/10/19 12:47 Dose: Not Given Chlorhexidine Gluconate (Hibiclens For Decolonization -) 1 applic TP HS RADHA Last Admin: 06/09/19 22:11 Dose: 1 applic Meropenem 500 mg/ Dextrose 100 mls @ 200 mls/hr IVPB Q12H RAD[facility] Last Admin: 06/10/19 05:38 Dose: 200 mls/hr Norepinephrine Bitartrate 8, (000 mcg/ Dextrose) 500 mls @ 18.75 mls/hr IV TITR RADHA; Protocol Last Titration: 06/10/19 06:00 Dose: 6 mcg/min, 22.5 mls/hr Famotidine/Sodium Chloride (Pepcid 20 Mg Premixed Ivpb -) 20 mg in 50 mls @ 100 mls/hr IVPB DAILY RADHA Last Admin: 06/10/19 13:49 Dose: 100 mls/hr Vasopressin 50 units/ Sodium (Chloride) 100 mls @ 4 mls/hr IVPB ASDIR RADHA; Protocol Last Admin: 06/10/19 12:09 Dose: 2 units/hr, 4 mls/hr Lactulose (Cephulac (Oral Use)) 20 gm PO TID RADHA Last Admin: 06/10/19 05:58 Dose: Not Given Methylprednisolone Sodium Succinate (Solu-Medrol -) 20 mg IVPUSH Q8H-IV RADHA Midodrine (Proamatine -) 5 mg PO BID PRN PRN Reason: MAP<65mm Hg OR SBP <90 Last Admin: 06/05/19 14:22 Dose: 5 mg Nystatin (Mycostatin Ointment -) 1 applic TP BID RADHA Last Admin: 06/09/19 22:12 Dose: 1 applic Phytonadione (Mephyton -) 5 mg PO DAILY [facility] Last Admin: 06/10/19 12:47 Dose: Not Given Polyethylene Glycol (Miralax (For Daily Use) -) 17 gm PO BID PRN PRN Reason: CONSTIPATION Rifaximin (Xifaxan -) 550 mg PO BID [facility] Last Admin: 06/10/19 09:29 Dose: Not Given Sodium Bicarbonate (Sodium Bicarbonate 8.4% -) 50 meq IV Q12H [facility] - Objective Vital Signs: Vital Signs Temperature 97.3 F L 06/10/19 10:00 Pulse Rate 95 H 06/10/19 12:09 Respiratory Rate 25 H 06/10/19 10:00 Blood Pressure 121/40 L 06/10/19 12:09 O2 Sat by Pulse Oximetry (%) 92 L 06/10/19 08:39 Constitutional: Yes: Moderate Distress Eyes: Yes: Conjunctiva Clear HENT: Yes: Atraumatic Cardiovascular: Yes: S1, S2 Respiratory: Yes: On Nasal O2 Gastrointestinal: Yes: Soft, Ascites Genitourinary: Yes: Laguerre Present, Oliguria Musculoskeletal: Yes: Muscle Weakness Edema: Yes Edema: LLE: 2+, RLE: 2+ Neurological: Yes: Lethargy Labs: CBC, BMP 06/10/19 05:47 06/10/19 06:00 INR, PTT INR 1.89 (0.83-1.09) H 06/10/19 05:47 - ....Imaging Chest X-ray: Report Reviewed Problem List - Problems (1) Hyperkalemia Code(s): E87.5 - HYPERKALEMIA (2) Pneumonia Code(s): J18.9 - PNEUMONIA, UNSPECIFIED ORGANISM Qualifiers: Pneumonia type: due to unspecified organism Laterality: left Lung location: lower lobe of lung Qualified Code(s): J18.9 - Pneumonia, unspecified organism (3) Sepsis Code(s): A41.9 - SEPSIS, UNSPECIFIED ORGANISM Assessment/Plan Current Medications Generic Name Dose Route Start Last Admin Trade Name Freq PRN Reason Stop Dose Admin Acetylcysteine 400 mg 06/08/19 20:00 06/10/19 08:00 Mucomyst 20 Oral / Inh Use Only* NEB 400 mg RBID [facility] Administration Albuterol Sulfate 1 amp 06/08/19 15:30 06/10/19 12:03 Ventolin 0.083% Nebulizer Soln - NEB 1 amp RQ4H RADHA Administration Calcium Acetate 667 mg 06/03/19 17:30 06/10/19 12:47 Phoslo - PO Not Given TIDCM RADHA Chlorhexidine Gluconate 1 applic 06/03/19 22:00 06/09/19 22:11 Hibiclens For Decolonization - TP 1 applic HS RADHA Administration Meropenem 500 mg/ Dextrose 100 mls @ 200 mls/hr 06/03/19 17:15 06/10/19 05:38 IVPB 200 mls/hr Q12H RADHA Administration Norepinephrine Bitartrate 8, 500 mls @ 18.75 mls/hr 06/10/19 00:30 06/10/19 06:00 000 mcg/ Dextrose IV 6 mcg/min TITR RADHA 22.5 mls/hr Titration Protocol 5 MCG/MIN Famotidine/Sodium Chloride 20 mg in 50 mls @ 100 mls/hr 06/10/19 11:15 13:49 Pepcid 20 Mg Premixed Ivpb - IVPB 100 mls/hr DAILY RADHA Administration Vasopressin 50 units/ Sodium 100 mls @ 4 mls/hr 06/10/19 12:15 06/10/19 12:09 Chloride IVPB 2 units/hr ASDIR RADHA 4 mls/hr Administration Protocol 2 UNITS/HR Lactulose 20 gm 06/04/19 20:45 06/10/19 05:58 Cephulac (Oral Use) PO Not Given TID [facility] Methylprednisolone Sodium Succinate 20 mg 06/10/19 12:19 Solu-Medrol - IVPUSH Q8H-IV RADHA Midodrine 5 mg 06/03/19 23:02 06/05/19 14:22 Proamatine - PO 5 mg BID PRN Administration MAP<65mm Hg OR SBP <90 Nystatin 1 applic 06/05/19 11:24 06/09/19 22:12 Mycostatin Ointment - TP 1 applic BID RADHA Administration Phytonadione 5 mg 06/05/19 11:45 06/10/19 12:47 Mephyton - PO Not Given DAILY [facility] Polyethylene Glycol 17 gm 06/03/19 16:17 Miralax (For Daily Use) - PO BID PRN CONSTIPATION Rifaximin 550 mg 06/03/19 22:00 12/23/19 09:29 Xifaxan - PO Not Given BID [facility] Sodium Bicarbonate 50 meq 06/10/19 14:00 Sodium Bicarbonate 8.4% - IV Q12H [facility] Impression 1. DAVID 2. CKD 3. hep C cirrhosis 4. hyperkalemia 5. sepsis 6. ascites 7. hypervolemic hyponatremia 8. coagulopathy 9. hypernatremia 10. cryoglobulins PLAN - called and discussed care with her daughter, [phone]. I discussed treatment options including HD. She does not want her mother on HD. Will continue with medical management. - treat potassium medically - cont bicarb - can give lasix for overload - mopnitor urine output - monitor pulse ox - pt is hypotensive, monitor bp, maintain map 65 if possible - prognosis is poor
[2019-06-10] MEDS ORDERED: FUROSEMIDE 40 MG/4 ML INJECTABLE VIAL IVPUSH ONE (14:32)
--- NOTE | 2019-06-10 14:33 | PN ---
Progress Note (short form) - Note Progress Note: GI follow up Is back on pressors Is on HF O2, altered, sat low Daughter does not want HD Vital Signs Temp 97.3 F L 06/10/19 10:00 Pulse 95 H 06/10/19 12:09 Resp 25 H 06/10/19 10:00 BP 121/40 L 06/10/19 12:09 Pulse Ox 92 L 06/10/19 08:39 Altered Jaundiced CBC, BMP 06/10/19 05:47 06/10/19 06:00 Hepatic Panel Total Bilirubin 3.4 mg/dL (0.2-1) H 06/10/19 06:00 Direct Bilirubin 0.9 mg/dL (0.0-0.2) H 06/05/19 05:55 AST 51 U/L (15-37) H 06/10/19 06:00 ALT 27 U/L (13-61) 06/10/19 06:00 Alkaline Phosphatase 140 U/L (45-117) H 06/10/19 06:00 Albumin 1.9 g/dl (3.4-5.0) L 06/10/19 06:00 68F with HCV/ETOH cirrhosis No SBP on paracentesis Can continue lactulose/rifaximin if c/w GOC Care per ICU team Please call us back if we can be of service
--- NOTE | 2019-06-10 15:13 | PN ---
Progress Note, PARKING INSPECTOR - Note Progress Note: Selected Entries 06/10/19 06/10/19 06/10/19 00:00 02:00 04:00 Lunch Temperature 96.4 F L 96.5 F L 97 F L 06/10/19 06/10/19 06/10/19 05:00 06:43 08:00 Lunch Temperature 97.1 F L 97.1 F L 97.3 F L 06/10/19 10:00 Lunch NPO Temperature 97.3 F L Laboratory Tests 06/08/19 06/09/19 06/10/19 09:00 05:52 05:47 WBC 15.0 H 17.6 H 24.3 H Seen on NRB trial. Too sob for po trial. Defer PO at this time. Pt full code. Seen by Palliative care.
[2019-06-10] MEDS: SODIUM BICARBONATE 8.4% 50 MEQ/50 ML VIAL IV SCH (18:18)
[2019-06-10] MEDS: CHLORHEXIDINE GLUCONATE 4% CLEANSER FOR DECOLONIZATION TP SCH (22:09)
[2019-06-11] MEDS: ALBUTEROL SO4 0.083% IH SOL 2.5 MG/3 ML VIAL.NEB. NEB SCH ×5 (00:30→20:45)
[2019-06-11] MEDS ORDERED: NOREPINEPHRINE BITARTRATE 4 MG/4 ML ML IV ONE ×2 (02:13→21:01)
[2019-06-11] MEDS ORDERED: VASOPRESSIN 20 UNITS/ML VIAL IV ONE ×2 (02:14→17:00)
[2019-06-11] MEDS: methylPREDNISolone NA SUCC 40 MG/1 ML VIAL IVPUSH SCH ×3 (02:26→17:13)
[2019-06-11] MEDS: NOREPINEPHRINE BITARTRATE 8,000 MCG in DEXTROSE 5%-WATER - 492 ML IV SCH (02:27)
[2019-06-11] MEDS: SODIUM BICARBONATE 8.4% 50 MEQ/50 ML VIAL IV SCH ×3 (02:27→17:13)
[2019-06-11] MEDS: MEROPENEM 500 MG in DEXTROSE 5%-WATER 100 ML IVPB SCH ×2 (06:13→17:12)
[2019-06-11 06:55] LABS: BASO % 0.2 % (0-2.0); HEMATOCRIT 26.7 % (32.4-45.2); HEMOGLOBIN 8.6 GM/dL (10.7-15.3); LYMPH % 0.7 % (8-40); MCH 32.8 pg (25.7-33.7); MCHC 32.3 g/dl (32.0-36.0); MEAN CELL VOLUME 101.5 fl (80-96); MEAN PLT VOLUME 9.4 fl (7.5-11.1); MONO % 0.9 % (3.8-10.2); NEUT % 98.2 % (42.8-82.8); PLATELET COUNT 40 K/MM3 (134-434); RBC 2.63 M/mm3 (3.60-5.2); RDW 19.2 % (11.6-15.6); WHITE BLOOD COUNT 25.7 K/mm3 (4.0-10.0)
[2019-06-11 07:08] LABS: ALBUMIN 1.8 g/dl (3.4-5.0); BILIRUBIN,TOTAL 4.1 mg/dL (0.2-1); BLOOD UREA NITROGEN 87.8 mg/dL (7-18); CALCIUM 8.1 mg/dL (8.5-10.1); CREATININE 5.3 mg/dL (0.55-1.3); MAGNESIUM 2.4 mg/dL (1.8-2.4); POTASSIUM 5.6 mmol/L (3.5-5.1); TOT PROT 4.6 g/dl (6.4-8.2)
[2019-06-11] MEDS: ACETYLCYSTEINE 20% 200MG/ML 4 ML VIAL *FOR ORAL / INH USE ONLY NEB SCH ×2 (07:40→20:45)
--- NOTE | 2019-06-11 09:08 | PN ---
Progress Note (short form) - Note Progress Note: Spoke with Patient's son-Hardik Montalvo that lives in [place]. Said he thinks his mother is in distress and would want comfort care on her but his sister Shante makes health care decisions so he said he would reach out to Shante. Per son, Shante is open to comfort care for the patient. I attempted to reach Selene, still pending response. Also spoke with Dr Ramey, for now we will do morphine pushes until we confirm comfort care with Shante. Unable to reach Shante by phone at 9.14am will continue morphine pushes
[2019-06-11] MEDS ORDERED: MORPHINE SULFATE 2 MG/ML VIAL IVPUSH PRN (09:11)
[2019-06-11 09:23] VITALS: TEMP 96.4
[2019-06-11] MEDS: NYSTATIN 100000 UNIT/GM TOPICAL OINTMENT 15 GM TUBE TP SCH ×2 (09:37→21:19)
[2019-06-11] MEDS: FAMOTIDINE 20 MG/50 ML IVPB 20 MG/50 ML MG IVPB SCH (09:37)
[2019-06-11 09:46] LABS: ANISOCYTOSIS 2+; MACROCYTOSIS 1+; PLATELET ESTIMATE DECREASED
--- NOTE | 2019-06-11 10:02 | PN ---
Progress Note, Physician - Current Medication List Current Medications: Active Medications Acetylcysteine (Mucomyst 20 Oral / Inh Use Only*) 400 mg NEB RBID RADHA Last Admin: 06/10/19 20:30 Dose: 400 mg Albuterol Sulfate (Ventolin 0.083% Nebulizer Soln -) 1 amp NEB RQ4H RADHA Last Admin: 06/11/19 00:30 Dose: Not Given Calcium Acetate (Phoslo -) 667 mg PO TIDCM RADHA Last Admin: 06/10/19 12:47 Dose: Not Given Chlorhexidine Gluconate (Hibiclens For Decolonization -) 1 applic TP HS RADHA Last Admin: 06/10/19 22:09 Dose: 1 applic Meropenem 500 mg/ Dextrose 100 mls @ 200 mls/hr IVPB Q12H RAD[facility] Last Admin: 06/11/19 06:13 Dose: 200 mls/hr Norepinephrine Bitartrate 8, (000 mcg/ Dextrose) 500 mls @ 18.75 mls/hr IV TITR RADHA; Protocol Last Titration: 06/11/19 06:00 Dose: 7 mcg/min, 26.25 mls/hr Famotidine/Sodium Chloride (Pepcid 20 Mg Premixed Ivpb -) 20 mg in 50 mls @ 100 mls/hr IVPB DAILY [facility] Last Admin: 06/11/19 09:37 Dose: 100 mls/hr Vasopressin 50 units/ Sodium (Chloride) 100 mls @ 4 mls/hr IVPB ASDIR RADHA; Protocol Last Titration: 06/11/19 04:00 Dose: 4 units/hr, 8 mls/hr Lactulose (Cephulac (Oral Use)) 20 gm PO TID [facility] Last Admin: 06/10/19 05:58 Dose: Not Given Methylprednisolone Sodium Succinate (Solu-Medrol -) 20 mg IVPUSH Q8H-IV [facility] Last Admin: 06/11/19 09:38 Dose: 20 mg Midodrine (Proamatine -) 5 mg PO BID PRN PRN Reason: MAP<65mm Hg OR SBP <90 Last Admin: 06/05/19 14:22 Dose: 5 mg Morphine Sulfate (Morphine Sulfate) 2 mg IVPUSH Q4H PRN PRN Reason: PAIN LEVEL 6-10 Last Admin: 06/11/19 09:28 Dose: 2 mg Nystatin (Mycostatin Ointment -) 1 applic TP BID [facility] Last Admin: 06/11/19 09:37 Dose: 1 applic Phytonadione (Mephyton -) 5 mg PO DAILY [facility] Last Admin: 06/10/19 12:47 Dose: Not Given Polyethylene Glycol (Miralax (For Daily Use) -) 17 gm PO BID PRN PRN Reason: CONSTIPATION Rifaximin (Xifaxan -) 550 mg PO BID [facility] Last Admin: 06/10/19 09:29 Dose: Not Given Sodium Bicarbonate (Sodium Bicarbonate 8.4% -) 50 meq IV Q8H-IV [facility] Last Admin: 06/11/19 09:37 Dose: 50 meq - Objective Vital Signs: Vital Signs Temperature 96.4 F L 06/11/19 09:00 Pulse Rate 92 H 06/11/19 09:00 Respiratory Rate 31 H 06/11/19 09:00 Blood Pressure 112/36 L 06/11/19 09:00 O2 Sat by Pulse Oximetry (%) 83 L 06/11/19 08:57 Cardiovascular: Yes: S1, S2 Respiratory: Yes: On Venti-Mask, Rhonchi Gastrointestinal: Yes: Normal Bowel Sounds, Soft Neurological: Yes: Lethargy Labs: CBC, BMP 06/11/19 05:30 06/11/19 05:30 INR, PTT INR 1.89 (0.83-1.09) H 06/10/19 05:47 Assessment/Plan - Problems (1) Acute kidney injury superimposed on CKD Assessment/Plan: -correct potassium as per nephrology -hydration -Nephrology on board Problems reviewed: Yes Code(s): N17.9 - ACUTE KIDNEY FAILURE, UNSPECIFIED; N18.9 - CHRONIC KIDNEY DISEASE, UNSPECIFIED (2) Ascites Assessment/Plan: -Seen by GI -S/P Paracentesis 3 L removed -Vitamin k daily Problems reviewed: Yes Code(s): R18.8 - OTHER ASCITES (3) Pneumonia Assessment/Plan: -ID consult -icu management for respiratory status -bipap PRN -IV meropenem -Medrol tapering dose Problems reviewed: Yes Code(s): J18.9 - PNEUMONIA, UNSPECIFIED ORGANISM Qualifiers: Pneumonia type: due to unspecified organism Laterality: left Lung location: lower lobe of lung Qualified Code(s): J18.9 - Pneumonia, unspecified organism (4) Sepsis Assessment/Plan: -IV abx- meropenem -ID consult -Off pressers, keep MAP >65 mm Hg -monitor labs -Palliative care -bronchodilators Problems reviewed: Yes Code(s): A41.9 - SEPSIS, UNSPECIFIED ORGANISM (5) CKD (chronic kidney disease) Assessment/Plan: -nephrology on board -monitor labs Problems reviewed: Yes Code(s): N18.9 - CHRONIC KIDNEY DISEASE, UNSPECIFIED (6) Hyponatremia Assessment/Plan: -resolved Problems reviewed: Yes Code(s): E87.1 - HYPO-OSMOLALITY AND HYPONATREMIA (7) Lactic acidosis Assessment/Plan: -multifactorial Problems reviewed: Yes Code(s): E87.2 - ACIDOSIS Patient is a DNR?DNI D/w pt son --Him and his sister want comfort care will start with morphine prn and drip if needed
--- NOTE | 2019-06-11 11:23 | PN ---
Teaching Attending Note Name of Resident: Tenzin Cohen ATTENDING PHYSICIAN STATEMENT I saw and evaluated the patient. I reviewed the resident's note and discussed the case with the resident. I agree with the resident's findings and plan as documented. SUBJECTIVE: Pt seen and examined in the ICU. Pt lethargic on NRB saturating mid 80s. Above discussions noted, appreciated. Now DNR/DNI with medical management. Hospice being considered. On levophed, vasopressin gtts. OBJECTIVE: Vital Signs Period Temp Pulse Resp BP Sys/Bolaños Pulse Ox Last 24 Hr 96 F-97.3 F 80-102 18-31 94-126/31-75 83-90 Intake & Output 06/08/19 06/09/19 06/10/19 06/11/19 23:59 23:59 23:59 23:59 Intake Total 267 704 380 Output Total 125 125 70 10 Balance 142 -125 634 370 Weight 78.562 kg 76.1 kg 73.539 kg 70.505 kg Gen: lethargic, tachypneic Heart: RRR Lung: bilateral rhonchi Abd: soft, nontender Ext: + edema CBC, BMP 06/11/19 05:30 06/11/19 05:30 Active Medications Acetylcysteine (Mucomyst 20 Oral / Inh Use Only*) 400 mg NEB RBID RADHA Last Admin: 06/10/19 20:30 Dose: 400 mg Albuterol Sulfate (Ventolin 0.083% Nebulizer Soln -) 1 amp NEB RQ4H RADHA Last Admin: 06/11/19 00:30 Dose: Not Given Calcium Acetate (Phoslo -) 667 mg PO TIDCM RADHA Last Admin: 06/10/19 12:47 Dose: Not Given Chlorhexidine Gluconate (Hibiclens For Decolonization -) 1 applic TP HS RADHA Last Admin: 06/10/19 22:09 Dose: 1 applic Meropenem 500 mg/ Dextrose 100 mls @ 200 mls/hr IVPB Q12H [facility] Last Admin: 06/11/19 06:13 Dose: 200 mls/hr Norepinephrine Bitartrate 8, (000 mcg/ Dextrose) 500 mls @ 18.75 mls/hr IV TITR RADHA; Protocol Last Titration: 06/11/19 10:00 Dose: 8 mcg/min, 30 mls/hr Famotidine/Sodium Chloride (Pepcid 20 Mg Premixed Ivpb -) 20 mg in 50 mls @ 100 mls/hr IVPB DAILY [facility] Last Admin: 06/11/19 09:37 Dose: 100 mls/hr Vasopressin 50 units/ Sodium (Chloride) 100 mls @ 4 mls/hr IVPB ASDIR [facility]; Protocol Last Titration: 06/11/19 04:00 Dose: 4 units/hr, 8 mls/hr Lactulose (Cephulac (Oral Use)) 20 gm PO TID [facility] Last Admin: 06/10/19 05:58 Dose: Not Given Methylprednisolone Sodium Succinate (Solu-Medrol -) 20 mg IVPUSH Q8H-IV [facility] Last Admin: 06/11/19 09:38 Dose: 20 mg Midodrine (Proamatine -) 5 mg PO BID PRN PRN Reason: MAP<65mm Hg OR SBP <90 Last Admin: 06/05/19 14:22 Dose: 5 mg Morphine Sulfate (Morphine Sulfate) 2 mg IVPUSH Q4H PRN PRN Reason: PAIN LEVEL 6-10 Last Admin: 06/11/19 09:28 Dose: 2 mg Nystatin (Mycostatin Ointment -) 1 applic TP BID [facility] Last Admin: 06/11/19 09:37 Dose: 1 applic Phytonadione (Mephyton -) 5 mg PO DAILY [facility] Last Admin: 06/10/19 12:47 Dose: Not Given Polyethylene Glycol (Miralax (For Daily Use) -) 17 gm PO BID PRN PRN Reason: CONSTIPATION Rifaximin (Xifaxan -) 550 mg PO BID [facility] Last Admin: 06/10/19 09:29 Dose: Not Given Sodium Bicarbonate (Sodium Bicarbonate 8.4% -) 50 meq IV Q8H-IV [facility] Last Admin: 06/11/19 09:37 Dose: 50 meq ASSESSMENT AND PLAN: Acute Hypoxic Respiratory Failure Pneumonia UTI Severe Sepsis Lactic Acidosis Acute on Chronic Renal Failure Hep C Liver Cirrhosis Ascites Coagulopathy Anemia/Thrombocytopenia COPD h/o DVT - continue antibiotics - titrate pressors to maintain MAP >65 - titrate O2 to keep SpO2 >90% - continue empiric medrol - inhaled bronchodilators - monitor CBC, coags - continue ICU monitoring - poor overall prognosis, continue discussions regarding hospice care critical care time spent in reviewing chart, evaluating patient and formulating plan 35 min
--- NOTE | 2019-06-11 13:49 | PN ---
Physical Exam: SUBJECTIVE: Patient seen and examined Pt made DNR/DNI by health care proxy (daughter) levophed and vasopressin given yesterday night to keep MAP above 65 currenlty on non -rebreather at 15L at time of evaluation sat in the mid 80's moaning constantly, not oriented.A/P OBJECTIVE: Vital Signs Period Temp Pulse Resp BP Sys/Bolaños Pulse Ox Last 24 Hr 96 F-97.2 F 80-102 18-31 94-126/31-75 83-90 GEN: moaning on physical exam. HEENT: NC/AT, No facial asymmetry. Moist mucous membranes. Normal voice. LUNG:rhonchi on lung exam bilaterally GI: soft, ndnt, +BS, no guarding, no rebound. distended abdominal veins EXTREMITIES:1+ distal pulses. bilateral lower extremity edema SKIN: warm, dry, normal turgor PSYCH: normal mood and affect NEURO: Moving all extremities well. Laboratory Results - last 24 hr 06/11/19 06/11/19 05:30 05:30 WBC 25.7 H RBC 2.63 L Hgb 8.6 L Hct 26.7 L MCV 101.5 H MCH 32.8 MCHC 32.3 RDW 19.2 H Plt Count 40 L D MPV 9.4 Absolute Neuts (auto) 25.3 H Neutrophils % 98.2 H Neutrophils % (Manual) 95.0 H Band Neutrophils % 3.0 Lymphocytes % 0.7 L Lymphocytes % (Manual) 0.0 L Monocytes % 0.9 L Monocytes % (Manual) 1 L Eosinophils % 0.0 Eosinophils % (Manual) 0.0 Basophils % 0.2 Basophils % (Manual) 0.0 Myelocytes % (Man) 0 D Promyelocytes % (Man) 0 Blast Cells % (Manual) 0 Nucleated RBC % 3 H Metamyelocytes 1 D Hypochromia 0 Platelet Estimate Decreased Polychromasia 2+ Poikilocytosis 1+ Anisocytosis 2+ Microcytosis 1+ Macrocytosis 1+ Acanthocytes (Spur) 1+ Schistocytes 1+ Sodium 138 Potassium 5.6 H Chloride 110 H Carbon Dioxide 13 L Anion Gap 15 BUN 87.8 H Creatinine 5.3 H Est GFR (CKD-EPI)AfAm 8.93 Est GFR (CKD-EPI)NonAf 7.70 Random Glucose 124 H Calcium 8.1 L Phosphorus 7.0 H Magnesium 2.4 Total Bilirubin 4.1 H AST 82 H ALT 28 Alkaline Phosphatase 147 H Total Protein 4.6 L Albumin 1.8 L Active Medications Generic Name Dose Route Start Last Admin Trade Name Julieta PRN Reason Stop Dose Admin Acetylcysteine 400 mg 06/08/19 20:00 06/11/19 07:40 Mucomyst 20 Oral / Inh Use Only* NEB Not Given RBID RADHA Albuterol Sulfate 1 amp 06/08/19 15:30 06/11/19 11:25 Ventolin 0.083% Nebulizer Soln - NEB Not Given RQ4H RADHA Calcium Acetate 667 mg 06/03/19 17:30 06/10/19 12:47 Phoslo - PO Not Given TIDCM RADHA Chlorhexidine Gluconate 1 applic 06/03/19 22:00 06/10/19 22:09 Hibiclens For Decolonization - TP 1 applic HS RAD[facility] Administration Meropenem 500 mg/ Dextrose 100 mls @ 200 mls/hr 06/03/19 17:15 06/11/19 06:13 IVPB 200 mls/hr Q12H RAD[facility] Administration Norepinephrine Bitartrate 8, 500 mls @ 18.75 mls/hr 06/10/19 00:30 06/11/19 10:00 000 mcg/ Dextrose IV 8 mcg/min TITR RADHA 30 mls/hr Titration Protocol 5 MCG/MIN Famotidine/Sodium Chloride 20 mg in 50 mls @ 100 mls/hr 06/10/19 11:15 09:37 Pepcid 20 Mg Premixed Ivpb - IVPB 100 mls/hr DAILY [facility] Administration Vasopressin 50 units/ Sodium 100 mls @ 4 mls/hr 06/10/19 12:15 06/11/19 04:00 Chloride IVPB 4 units/hr ASDIR RADHA 8 mls/hr Titration Protocol 2 UNITS/HR Lactulose 20 gm 06/04/19 20:45 06/10/19 05:58 Cephulac (Oral Use) PO Not Given TID RAD[facility] Methylprednisolone Sodium Succinate 20 mg 06/10/19 12:19 06/11/19 09:38 Solu-Medrol - IVPUSH 20 mg Q8H-IV [facility] Administration Midodrine 5 mg 06/03/19 23:02 06/05/19 14:22 Proamatine - PO 5 mg BID PRN Administration MAP<65mm Hg OR SBP <90 Morphine Sulfate 2 mg 06/11/19 09:11 06/11/19 09:28 Morphine Sulfate IVPUSH 2 mg Q4H PRN Administration PAIN LEVEL 6-10 Nystatin 1 applic 06/05/19 11:24 06/11/19 09:37 Mycostatin Ointment - TP 1 applic BID [facility] Administration Phytonadione 5 mg 06/05/19 11:45 06/10/19 12:47 Mephyton - PO Not Given DAILY [facility] Polyethylene Glycol 17 gm 06/03/19 16:17 Miralax (For Daily Use) - PO BID PRN CONSTIPATION Rifaximin 550 mg 06/03/19 22:00 06/10/19 09:29 Xifaxan - PO Not Given BID RAD[facility] Sodium Bicarbonate 50 meq 06/11/19 10:00 06/11/19 09:37 Sodium Bicarbonate 8.4% - IV 50 meq Q8H-IV [facility] Administration ASSESSMENT/PLAN: 68 y/o F with decompensated HCV cirrhosis, acute hypoxic respiratory failure NEURO: not oriented, moaning in apparent distress morphine 2mg q4h ordered for pain. family at this time agrees with pain medication for distress, but not with comfort care at this time CV: Calcium gluconate given for hyperkalemia Iv fluids held due to worsening congestive changes on CXR PULM: worsening congestive changes on CXR duonebs prn + solumedrol RENAL: continue bicarb family does not want hemodialysis FENGI: oral hydration monitor electrolytes npo ENDO: ID: [email or web address] DVT PPX: no Eloquis/heparin due to thrombocytopenia LINES/TUBES/DRAINS: Visit type - Emergency Visit Emergency Visit: Yes ED Registration Date: 06/03/19 Care time: The patient presented to the Emergency Department on the above date and was hospitalized for further evaluation of their emergent condition. - New Patient This patient is new to me today: No - Critical Care Critical Care patient: No - Discharge Referral Referred to [facility] Med P.C.: No ATTENDING PHYSICIAN STATEMENT I saw and evaluated the patient. I reviewed the resident's note and discussed the case with the resident. I agree with the resident's findings and plan as documented. SUBJECTIVE: OBJECTIVE: ASSESSMENT AND PLAN:
[2019-06-11] MEDS: VASOPRESSIN 50 UNITS in SODIUM CHLORIDE 97.5 ML IVPB SCH (14:28)
[2019-06-11] MEDS: LACTULOSE 20 GM/30 ML UDC (FOR ORAL USE ONLY) PO SCH ×2 (14:28→21:12)
--- NOTE | 2019-06-11 16:10 | PN ---
Progress Note, Physician History of Present Illness: Pt seen and examineda t bedside. She remains in the ICU. She is lethargic. - Current Medication List Current Medications: Active Medications Acetylcysteine (Mucomyst 20 Oral / Inh Use Only*) 400 mg NEB RBID RADHA Last Admin: 06/11/19 07:40 Dose: Not Given Albuterol Sulfate (Ventolin 0.083% Nebulizer Soln -) 1 amp NEB RQ4H [facility] Last Admin: 06/11/19 11:25 Dose: Not Given Calcium Acetate (Phoslo -) 667 mg PO TIDCM [facility] Last Admin: 06/10/19 12:47 Dose: Not Given Chlorhexidine Gluconate (Hibiclens For Decolonization -) 1 applic TP HS [facility] Last Admin: 06/10/19 22:09 Dose: 1 applic Meropenem 500 mg/ Dextrose 100 mls @ 200 mls/hr IVPB Q12H [facility] Last Admin: 06/11/19 06:13 Dose: 200 mls/hr Norepinephrine Bitartrate 8, (000 mcg/ Dextrose) 500 mls @ 18.75 mls/hr IV TITR [facility]; Protocol Last Titration: 06/11/19 14:28 Dose: 9 mcg/min, 33.75 mls/hr Famotidine/Sodium Chloride (Pepcid 20 Mg Premixed Ivpb -) 20 mg in 50 mls @ 100 mls/hr IVPB DAILY [facility] Last Admin: 06/11/19 09:37 Dose: 100 mls/hr Vasopressin 50 units/ Sodium (Chloride) 100 mls @ 4 mls/hr IVPB ASDIR [facility]; Protocol Last Admin: 06/11/19 14:28 Dose: 4 units/hr, 8 mls/hr Lactulose (Cephulac (Oral Use)) 20 gm PO TID [facility] Last Admin: 06/11/19 14:28 Dose: Not Given Methylprednisolone Sodium Succinate (Solu-Medrol -) 20 mg IVPUSH Q8H-IV [facility] Last Admin: 06/11/19 09:38 Dose: 20 mg Midodrine (Proamatine -) 5 mg PO BID PRN PRN Reason: MAP<65mm Hg OR SBP <90 Last Admin: 06/05/19 14:22 Dose: 5 mg Morphine Sulfate (Morphine Sulfate) 2 mg IVPUSH Q4H PRN PRN Reason: PAIN LEVEL 6-10 Last Admin: 06/11/19 09:28 Dose: 2 mg Nystatin (Mycostatin Ointment -) 1 applic TP BID [facility] Last Admin: 06/11/19 09:37 Dose: 1 applic Phytonadione (Mephyton -) 5 mg PO DAILY [facility] Last Admin: 06/10/19 12:47 Dose: Not Given Polyethylene Glycol (Miralax (For Daily Use) -) 17 gm PO BID PRN PRN Reason: CONSTIPATION Rifaximin (Xifaxan -) 550 mg PO BID [facility] Last Admin: 06/10/19 09:29 Dose: Not Given Sodium Bicarbonate (Sodium Bicarbonate 8.4% -) 50 meq IV Q8H-IV [facility] Last Admin: 06/11/19 09:37 Dose: 50 meq - Objective Vital Signs: Vital Signs Temperature 96.4 F L 06/11/19 14:00 Pulse Rate 89 06/11/19 14:28 Respiratory Rate 20 06/11/19 14:00 Blood Pressure 98/34 L 06/11/19 14:28 O2 Sat by Pulse Oximetry (%) 83 L 06/11/19 16:03 Constitutional: Yes: Mild Distress Eyes: Yes: Conjunctiva Clear Cardiovascular: Yes: S1, S2 Respiratory: Yes: On Venti-Mask, Rhonchi Gastrointestinal: Yes: Ascites Genitourinary: Yes: Laguerre Present, Oliguria Musculoskeletal: Yes: Muscle Weakness Edema: Yes Edema: LLE: 2+, RLE: 2+ Neurological: Yes: Lethargy Labs: CBC, BMP 06/11/19 05:30 06/11/19 05:30 INR, PTT INR 1.89 (0.83-1.09) H 06/10/19 05:47 - ....Imaging Chest X-ray: Report Reviewed Problem List - Problems (1) Hyperkalemia Code(s): E87.5 - HYPERKALEMIA (2) Pneumonia Code(s): J18.9 - PNEUMONIA, UNSPECIFIED ORGANISM Qualifiers: Pneumonia type: due to unspecified organism Laterality: left Lung location: lower lobe of lung Qualified Code(s): J18.9 - Pneumonia, unspecified organism (3) Sepsis Code(s): A41.9 - SEPSIS, UNSPECIFIED ORGANISM Assessment/Plan Current Medications Generic Name Dose Route Start Last Admin Trade Name Freq PRN Reason Stop Dose Admin Acetylcysteine 400 mg 06/08/19 20:00 06/11/19 07:40 Mucomyst 20 Oral / Inh Use Only* NEB Not Given RBID RADHA Albuterol Sulfate 1 amp 06/08/19 15:30 06/11/19 11:25 Ventolin 0.083% Nebulizer Soln - NEB Not Given RQ4H RAD[facility] Calcium Acetate 667 mg 06/03/19 17:30 06/10/19 12:47 Phoslo - PO Not Given TIDCM [facility] Chlorhexidine Gluconate 1 applic 06/03/19 22:00 06/10/19 22:09 Hibiclens For Decolonization - TP 1 applic HS [facility] Administration Meropenem 500 mg/ Dextrose 100 mls @ 200 mls/hr 06/03/19 17:15 06/11/19 06:13 IVPB 200 mls/hr Q12H [facility] Administration Norepinephrine Bitartrate 8, 500 mls @ 18.75 mls/hr 06/10/19 00:30 06/11/19 14:28 000 mcg/ Dextrose IV 9 mcg/min TITR RADHA 33.75 mls/hr Titration Protocol 5 MCG/MIN Famotidine/Sodium Chloride 20 mg in 50 mls @ 100 mls/hr 06/10/19 11:15 09:37 Pepcid 20 Mg Premixed Ivpb - IVPB 100 mls/hr DAILY [facility] Administration Vasopressin 50 units/ Sodium 100 mls @ 4 mls/hr 06/10/19 12:15 06/11/19 14:28 Chloride IVPB 4 units/hr ASDIR RADHA 8 mls/hr Administration Protocol 2 UNITS/HR Lactulose 20 gm 06/04/19 20:45 06/11/19 14:28 Cephulac (Oral Use) PO Not Given TID [facility] Methylprednisolone Sodium Succinate 20 mg 06/10/19 12:19 06/11/19 09:38 Solu-Medrol - IVPUSH 20 mg Q8H-IV [facility] Administration Midodrine 5 mg 06/03/19 23:02 06/05/19 14:22 Proamatine - PO 5 mg BID PRN Administration MAP<65mm Hg OR SBP <90 Morphine Sulfate 2 mg 06/11/19 09:11 06/11/19 09:28 Morphine Sulfate IVPUSH 2 mg Q4H PRN Administration PAIN LEVEL 6-10 Nystatin 1 applic 06/05/19 11:24 06/11/19 09:37 Mycostatin Ointment - TP 1 applic BID [facility] Administration Phytonadione 5 mg 06/05/19 11:45 06/10/19 12:47 Mephyton - PO Not Given DAILY [facility] Polyethylene Glycol 17 gm 06/03/19 16:17 Miralax (For Daily Use) - PO BID PRN CONSTIPATION Rifaximin 550 mg 06/03/19 22:00 06/10/19 09:29 Xifaxan - PO Not Given BID [facility] Sodium Bicarbonate 50 meq 06/11/19 10:00 06/11/19 09:37 Sodium Bicarbonate 8.4% - IV 50 meq Q8H-IV [facility] Administration Impression 1. DAVID 2. CKD 3. hep C cirrhosis 4. hyperkalemia 5. sepsis 6. ascites 7. hypervolemic hyponatremia 8. coagulopathy 9. hypernatremia 10. cryoglobulins PLAN - daughter at bedside, discussed plan with er. She does not want HD therapy, Pt is now DNR/DNI. Family want the pt comfortable. - medical management for hyperkalemia - cont bicarb pushes - can give lasix for overload - pt remains oliguric - monitor pulse ox - pt is hypotensive - prognosis is poor
[2019-06-11] MEDS: CALCIUM ACETATE 667 MG CAPSULE (FP) PO SCH (17:00)
[2019-06-11] MEDS ORDERED: DEXTROSE 5%-WATER 100 ML IVPB ONE (17:10)
[2019-06-11] MEDS ORDERED: MEROPENEM 500 MG VIAL (RESTRICTED TO ID) IVPB ONE (17:10)
[2019-06-11] MEDS: CHLORHEXIDINE GLUCONATE 4% CLEANSER FOR DECOLONIZATION TP SCH (21:13)
[2019-06-11] MEDS: RIFAXIMIN 550 MG TABLET (UD) PO SCH (21:15)
[2019-06-12] MEDS: ALBUTEROL SO4 0.083% IH SOL 2.5 MG/3 ML VIAL.NEB. NEB SCH ×3 (00:32→12:10)
[2019-06-12] MEDS ORDERED: DEXTROSE 5%-WATER 100 ML IVPB ONE (02:32)
[2019-06-12] MEDS ORDERED: MEROPENEM 500 MG VIAL (RESTRICTED TO ID) IVPB ONE (02:32)
[2019-06-12] MEDS: SODIUM BICARBONATE 8.4% 50 MEQ/50 ML VIAL IV SCH ×2 (02:40→10:35)
[2019-06-12] MEDS: NOREPINEPHRINE BITARTRATE 8,000 MCG in DEXTROSE 5%-WATER - 492 ML IV SCH (02:41)
[2019-06-12] MEDS: methylPREDNISolone NA SUCC 40 MG/1 ML VIAL IVPUSH SCH ×2 (02:42→10:34)
[2019-06-12] MEDS: LACTULOSE 20 GM/30 ML UDC (FOR ORAL USE ONLY) PO SCH (05:26)
[2019-06-12] MEDS: MEROPENEM 500 MG in DEXTROSE 5%-WATER 100 ML IVPB SCH (06:22)
[2019-06-12 07:04] LABS: BASO % 0.4 % (0-2.0); HEMATOCRIT 28.7 % (32.4-45.2); HEMOGLOBIN 8.5 GM/dL (10.7-15.3); LYMPH % 0.6 % (8-40); MCH 32.5 pg (25.7-33.7); MCHC 29.7 g/dl (32.0-36.0); MEAN CELL VOLUME 109.2 fl (80-96); MEAN PLT VOLUME 9.4 fl (7.5-11.1); MONO % 0.6 % (3.8-10.2); NEUT % 98.4 % (42.8-82.8); RBC 2.63 M/mm3 (3.60-5.2); RDW 22.4 % (11.6-15.6)
[2019-06-12 07:12] LABS: WHITE BLOOD COUNT 30.5 K/mm3 (4.0-10.0)
[2019-06-12 07:13] LABS: PLATELET COUNT 18 K/MM3 (134-434)
[2019-06-12] MEDS ORDERED: NOREPINEPHRINE BITARTRATE 4 MG/4 ML ML IV ONE (07:21)
[2019-06-12 08:16] LABS: ALBUMIN 1.6 g/dl (3.4-5.0); ALK PHOS 146 U/L (45-117); ANION GAP 14 MMOL/L (8-16); BILIRUBIN,TOTAL 4.3 mg/dL (0.2-1); CALCIUM 7.8 mg/dL (8.5-10.1); CHLORIDE 110 mmol/L (98-107); CO2 17 mmol/L (21-32); CREATININE 5.8 mg/dL (0.55-1.3); GLUCOSE,RANDOM 109 mg/dL (74-106); MAGNESIUM 2.6 mg/dL (1.8-2.4); SGOT/AST 90 U/L (15-37); SGPT/ALT 24 U/L (13-61); SODIUM 140 mmol/L (136-145); TOT PROT 4.3 g/dl (6.4-8.2)
[2019-06-12 09:04] LABS: PHOSPHOROUS > 9.0 mg/dL (2.5-4.9)
[2019-06-12 09:30] LABS: ANISOCYTOSIS 2+; MACROCYTOSIS 0; OVALOCYTE 1+; PLATELET ESTIMATE DECREASED
--- NOTE | 2019-06-12 10:09 | PN ---
Teaching Attending Note Name of Resident: Tenzin Cohen ATTENDING PHYSICIAN STATEMENT I saw and evaluated the patient. I reviewed the resident's note and discussed the case with the resident. I agree with the resident's findings and plan as documented. SUBJECTIVE: Pt seen and examined in the ICU. Remains unresponsive on NRB saturating mid 70s on levophed and vasopressin gtts. Daughter at bedside, awaiting brother for comfort measures. OBJECTIVE: Vital Signs Period Temp Pulse Resp BP Sys/Bolaños Pulse Ox Last 24 Hr 96.4 F 76-92 14-24 80-104/26-40 80-85 Intake & Output 06/09/19 06/10/19 06/11/19 06/12/19 23:59 23:59 23:59 23:59 Intake Total 704 1135 786 Output Total 125 70 25 0 Balance -776 713 6187 786 Weight 76.1 kg 73.539 kg 70.505 kg Gen: lethargic, tachypneic Heart: RRR Lung: bilateral rhonchi Abd: soft, nontender Ext: + edema CBC, BMP 06/12/19 06:00 06/12/19 06:00 Active Medications Acetylcysteine (Mucomyst 20 Oral / Inh Use Only*) 400 mg NEB RBID [facility] Last Admin: 06/11/19 20:45 Dose: 400 mg Albuterol Sulfate (Ventolin 0.083% Nebulizer Soln -) 1 amp NEB RQ4H [facility] Last Admin: 06/12/19 00:32 Dose: 1 amp Calcium Acetate (Phoslo -) 667 mg PO TIDCM [facility] Last Admin: 06/11/19 17:00 Dose: Not Given Chlorhexidine Gluconate (Hibiclens For Decolonization -) 1 applic TP HS [facility] Last Admin: 06/11/19 21:13 Dose: Not Given Meropenem 500 mg/ Dextrose 100 mls @ 200 mls/hr IVPB Q12H [facility] Last Admin: 06/12/19 06:22 Dose: 200 mls/hr Norepinephrine Bitartrate 8, (000 mcg/ Dextrose) 500 mls @ 18.75 mls/hr IV TITR [facility]; Protocol Last Admin: 06/12/19 02:41 Dose: 12 mcg/min, 45 mls/hr Famotidine/Sodium Chloride (Pepcid 20 Mg Premixed Ivpb -) 20 mg in 50 mls @ 100 mls/hr IVPB DAILY [facility] Last Admin: 06/11/19 09:37 Dose: 100 mls/hr Vasopressin 50 units/ Sodium (Chloride) 100 mls @ 4 mls/hr IVPB ASDIR [facility]; Protocol Last Admin: 06/11/19 14:28 Dose: 4 units/hr, 8 mls/hr Lactulose (Cephulac (Oral Use)) 20 gm PO TID [facility] Last Admin: 06/12/19 05:26 Dose: Not Given Methylprednisolone Sodium Succinate (Solu-Medrol -) 20 mg IVPUSH Q8H-IV [facility] Last Admin: 06/12/19 02:42 Dose: 20 mg Midodrine (Proamatine -) 5 mg PO BID PRN PRN Reason: MAP<65mm Hg OR SBP <90 Last Admin: 06/05/19 14:22 Dose: 5 mg Morphine Sulfate (Morphine Sulfate) 2 mg IVPUSH Q4H PRN PRN Reason: PAIN LEVEL 6-10 Last Admin: 06/11/19 09:28 Dose: 2 mg Nystatin (Mycostatin Ointment -) 1 applic TP BID [facility] Last Admin: 06/11/19 21:19 Dose: 1 applic Phytonadione (Mephyton -) 5 mg PO DAILY [facility] Last Admin: 06/10/19 12:47 Dose: Not Given Polyethylene Glycol (Miralax (For Daily Use) -) 17 gm PO BID PRN PRN Reason: CONSTIPATION Rifaximin (Xifaxan -) 550 mg PO BID [facility] Last Admin: 06/11/19 21:15 Dose: Not Given Sodium Bicarbonate (Sodium Bicarbonate 8.4% -) 50 meq IV Q8H-IV [facility] Last Admin: 06/12/19 02:40 Dose: 50 meq ASSESSMENT AND PLAN: Acute Hypoxic Respiratory Failure Pneumonia UTI Severe Sepsis Lactic Acidosis Acute on Chronic Renal Failure Hep C Liver Cirrhosis Ascites Coagulopathy Anemia/Thrombocytopenia COPD h/o DVT - continue antibiotics - titrate pressors to maintain MAP >65 - titrate O2 to keep SpO2 >90% - continue empiric medrol - inhaled bronchodilators - monitor CBC, coags - continue ICU monitoring - awaiting family members before starting comfort measures - discussed with daughter at bedside and answered all questions critical care time spent in reviewing chart, evaluating patient and formulating plan 35 min
[2019-06-12] MEDS: CALCIUM ACETATE 667 MG CAPSULE (FP) PO SCH (10:23)
[2019-06-12] MEDS: PHYTONADIONE 5 MG TABLET PO SCH (10:23)
[2019-06-12] MEDS: RIFAXIMIN 550 MG TABLET (UD) PO SCH (10:24)
[2019-06-12] MEDS: NYSTATIN 100000 UNIT/GM TOPICAL OINTMENT 15 GM TUBE TP SCH (10:34)
[2019-06-12] MEDS: FAMOTIDINE 20 MG/50 ML IVPB 20 MG/50 ML MG IVPB SCH (10:34)
--- NOTE | 2019-06-12 11:32 | PN ---
Physical Exam: SUBJECTIVE: Patient seen and examined Pt has been hypotensive through out the night with pressors (levophed and vasopressin) on non-rebreather O2 saturation in the high 60's and low 70's daughter at the bedside. awaiting son's arrival for institution of comfort measures OBJECTIVE: Vital Signs Period Temp Pulse Resp BP Sys/Bolaños Pulse Ox Last 24 Hr 96.4 F 76-92 14-24 80-104/26-40 80-85 GEN: non-arousable HEENT: NC/AT, No facial asymmetry. Moist mucous membranes. LUNG: rhonchi. GI: soft, ndnt, +BS, EXTREMITIES: 1+ distal pulses. pitting pedal edema SKIN: warm, dry, normal turgor PSYCH: on non-rebreather, non-verbal NEURO: Moving extremities. Laboratory Results - last 24 hr 06/11/19 06/12/19 06/12/19 17:25 06:00 06:00 WBC 30.5 H* RBC 2.63 L Hgb 8.5 L Hct 28.7 L MCV 109.2 H D MCH 32.5 MCHC 29.7 L RDW 22.4 H Plt Count 18 L* D MPV 9.4 Absolute Neuts (auto) 30.0 H Neutrophils % 98.4 H Neutrophils % (Manual) 90.0 H Band Neutrophils % 9.0 Lymphocytes % 0.6 L Lymphocytes % (Manual) 0.0 L Monocytes % 0.6 L Monocytes % (Manual) 0 L D Eosinophils % 0.0 Eosinophils % (Manual) 0.0 Basophils % 0.4 Basophils % (Manual) 0.0 Myelocytes % (Man) 1 D Promyelocytes % (Man) 0 Blast Cells % (Manual) 0 Nucleated RBC % 1 H Metamyelocytes 0 D Hypochromia 0 Platelet Estimate Decreased Polychromasia 1+ Poikilocytosis 2+ Anisocytosis 2+ Microcytosis 2+ Macrocytosis 0 Ovalocytes 1+ Schistocytes 2+ Sodium 140 Potassium 6.0 H Chloride 110 H Carbon Dioxide 17 L Anion Gap 14 BUN 90.0 H Creatinine 5.8 H Est GFR (CKD-EPI)AfAm 8.00 Est GFR (CKD-EPI)NonAf 6.91 POC Glucometer 82 Random Glucose 109 H Calcium 7.8 L Phosphorus > 9.0 H* Magnesium 2.6 H Total Bilirubin 4.3 H AST 90 H ALT 24 Alkaline Phosphatase 146 H Total Protein 4.3 L Albumin 1.6 L Active Medications Generic Name Dose Route Start Last Admin Trade Name Freq PRN Reason Stop Dose Admin Acetylcysteine 400 mg 06/08/19 20:00 06/11/19 20:45 Mucomyst 20 Oral / Inh Use Only* NEB 400 mg RBID RADHA Administration Albuterol Sulfate 1 amp 06/08/19 15:30 06/12/19 00:32 Ventolin 0.083% Nebulizer Soln - NEB 1 amp RQ4H RADHA Administration Calcium Acetate 667 mg 06/03/19 17:30 06/12/19 10:23 Phoslo - PO Not Given TIDCM [facility] Chlorhexidine Gluconate 1 applic 06/03/19 22:00 06/11/19 21:13 Hibiclens For Decolonization - TP Not Given HS RADHA Meropenem 500 mg/ Dextrose 100 mls @ 200 mls/hr 06/03/19 17:15 06/12/19 06:22 IVPB 200 mls/hr Q12H RAD[facility] Administration Norepinephrine Bitartrate 8, 500 mls @ 18.75 mls/hr 06/10/19 00:30 06/12/19 02:41 000 mcg/ Dextrose IV 12 mcg/min TITR RADHA 45 mls/hr Administration Protocol 5 MCG/MIN Famotidine/Sodium Chloride 20 mg in 50 mls @ 100 mls/hr 06/10/19 11:15 10:34 Pepcid 20 Mg Premixed Ivpb - IVPB 100 mls/hr DAILY [facility] Administration Vasopressin 50 units/ Sodium 100 mls @ 4 mls/hr 06/10/19 12:15 06/11/19 14:28 Chloride IVPB 4 units/hr ASDIR RADHA 8 mls/hr Administration Protocol 2 UNITS/HR Lactulose 20 gm 06/04/19 20:45 06/12/19 05:26 Cephulac (Oral Use) PO Not Given TID [facility] Methylprednisolone Sodium Succinate 20 mg 06/10/19 12:19 06/12/19 10:34 Solu-Medrol - IVPUSH 20 mg Q8H-IV [facility] Administration Midodrine 5 mg 06/03/19 23:02 06/05/19 14:22 Proamatine - PO 5 mg BID PRN Administration MAP<65mm Hg OR SBP <90 Morphine Sulfate 2 mg 06/11/19 09:11 06/11/19 09:28 Morphine Sulfate IVPUSH 2 mg Q4H PRN Administration PAIN LEVEL 6-10 Nystatin 1 applic 06/05/19 11:24 06/12/19 10:34 Mycostatin Ointment - TP 1 applic BID [facility] Administration Phytonadione 5 mg 06/05/19 11:45 06/12/19 10:23 Mephyton - PO Not Given DAILY [facility] Polyethylene Glycol 17 gm 06/03/19 16:17 Miralax (For Daily Use) - PO BID PRN CONSTIPATION Rifaximin 550 mg 06/03/19 22:00 06/12/19 10:24 Xifaxan - PO Not Given BID [facility] Sodium Bicarbonate 50 meq 06/11/19 10:00 06/12/19 10:35 Sodium Bicarbonate 8.4% - IV 50 meq Q8H-IV [facility] Administration ASSESSMENT/PLAN: 68 y/o F with decompensated HCV cirrhosis, acute hypoxic respiratory failure NEURO: not oriented, non-arousable morphine 2mg q4h ordered for pain. family at this time agrees with pain medication for distress, daughter at bedside, awaiting arrival of brother for institution of comfort measures CV: Iv fluids held due to worsening congestive changes on CXR will continue pressors pending comfort measures by family levophed and vasopressin PULM: worsening congestive changes on CXR duonebs prn + solumedrol RENAL: continue bicarb family does not want hemodialysis FENGI: oral hydration monitor electrolytes npo ENDO: ID: meropenem DVT PPX: no Eloquis/heparin due to thrombocytopenia LINES/TUBES/DRAINS: Visit type - Emergency Visit Emergency Visit: Yes ED Registration Date: 06/03/19 Care time: The patient presented to the Emergency Department on the above date and was hospitalized for further evaluation of their emergent condition. - New Patient This patient is new to me today: No - Critical Care Critical Care patient: No - Discharge Referral Referred to [facility] Med [facility] No ATTENDING PHYSICIAN STATEMENT I saw and evaluated the patient. I reviewed the resident's note and discussed the case with the resident. I agree with the resident's findings and plan as documented. SUBJECTIVE: OBJECTIVE: ASSESSMENT AND PLAN:
--- NOTE | 2019-06-12 11:49 | PN ---
Progress Note, Physician History of Present Illness: Pt seen and examined at bedside. She is lethargic. Family are at bedside. - Current Medication List Current Medications: Active Medications Acetylcysteine (Mucomyst 20 Oral / Inh Use Only*) 400 mg NEB RBID [facility] Last Admin: 06/11/19 20:45 Dose: 400 mg Albuterol Sulfate (Ventolin 0.083% Nebulizer Soln -) 1 amp NEB RQ4H [facility] Last Admin: 06/12/19 00:32 Dose: 1 amp Calcium Acetate (Phoslo -) 667 mg PO TIDCM [facility] Last Admin: 06/12/19 10:23 Dose: Not Given Chlorhexidine Gluconate (Hibiclens For Decolonization -) 1 applic TP HS [facility] Last Admin: 06/11/19 21:13 Dose: Not Given Meropenem 500 mg/ Dextrose 100 mls @ 200 mls/hr IVPB Q12H [facility] Last Admin: 06/12/19 06:22 Dose: 200 mls/hr Norepinephrine Bitartrate 8, (000 mcg/ Dextrose) 500 mls @ 18.75 mls/hr IV TITR [facility]; Protocol Last Admin: 06/12/19 02:41 Dose: 12 mcg/min, 45 mls/hr Famotidine/Sodium Chloride (Pepcid 20 Mg Premixed Ivpb -) 20 mg in 50 mls @ 100 mls/hr IVPB DAILY [facility] Last Admin: 06/12/19 10:34 Dose: 100 mls/hr Vasopressin 50 units/ Sodium (Chloride) 100 mls @ 4 mls/hr IVPB ASDIR [facility]; Protocol Last Admin: 06/11/19 14:28 Dose: 4 units/hr, 8 mls/hr Lactulose (Cephulac (Oral Use)) 20 gm PO TID [facility] Last Admin: 06/12/19 05:26 Dose: Not Given Methylprednisolone Sodium Succinate (Solu-Medrol -) 20 mg IVPUSH Q8H-IV [facility] Last Admin: 06/12/19 10:34 Dose: 20 mg Midodrine (Proamatine -) 5 mg PO BID PRN PRN Reason: MAP<65mm Hg OR SBP <90 Last Admin: 06/05/19 14:22 Dose: 5 mg Morphine Sulfate (Morphine Sulfate) 2 mg IVPUSH Q4H PRN PRN Reason: PAIN LEVEL 6-10 Last Admin: 06/11/19 09:28 Dose: 2 mg Nystatin (Mycostatin Ointment -) 1 applic TP BID [facility] Last Admin: 06/12/19 10:34 Dose: 1 applic Phytonadione (Mephyton -) 5 mg PO DAILY [facility] Last Admin: 06/12/19 10:23 Dose: Not Given Polyethylene Glycol (Miralax (For Daily Use) -) 17 gm PO BID PRN PRN Reason: CONSTIPATION Rifaximin (Xifaxan -) 550 mg PO BID [facility] Last Admin: 06/12/19 10:24 Dose: Not Given Sodium Bicarbonate (Sodium Bicarbonate 8.4% -) 50 meq IV Q8H-IV [facility] Last Admin: 06/12/19 10:35 Dose: 50 meq - Objective Vital Signs: Vital Signs Temperature 96.4 F L 06/11/19 14:00 Pulse Rate 76 06/12/19 05:00 Respiratory Rate 19 06/12/19 05:00 Blood Pressure 80/27 L 06/12/19 05:00 O2 Sat by Pulse Oximetry (%) 80 L 06/11/19 19:33 Constitutional: Yes: Calm, Mild Distress Eyes: Yes: Conjunctiva Clear HENT: Yes: Atraumatic Cardiovascular: Yes: S1, S2 Respiratory: Yes: On Venti-Mask, Rhonchi Gastrointestinal: Yes: Ascites Genitourinary: Yes: Laguerre Present, Oliguria Musculoskeletal: Yes: Muscle Weakness Edema: Yes Edema: LUE: 1+, RUE: 1+, LLE: 2+, RLE: 2+ Neurological: Yes: Lethargy Labs: CBC, BMP 06/12/19 06:00 06/12/19 06:00 INR, PTT INR 1.89 (0.83-1.09) H 06/10/19 05:47 Problem List - Problems (1) Hyperkalemia Code(s): E87.5 - HYPERKALEMIA (2) Pneumonia Code(s): J18.9 - PNEUMONIA, UNSPECIFIED ORGANISM Qualifiers: Pneumonia type: due to unspecified organism Laterality: left Lung location: lower lobe of lung Qualified Code(s): J18.9 - Pneumonia, unspecified organism (3) Sepsis Code(s): A41.9 - SEPSIS, UNSPECIFIED ORGANISM Assessment/Plan Current Medications Generic Name Dose Route Start Last Admin Trade Name Freq PRN Reason Stop Dose Admin Acetylcysteine 400 mg 06/08/19 20:00 06/11/19 20:45 Mucomyst 20 Oral / Inh Use Only* NEB 400 mg RBID RADHA Administration Albuterol Sulfate 1 amp 06/08/19 15:30 06/12/19 00:32 Ventolin 0.083% Nebulizer Soln - NEB 1 amp RQ4H RAD[facility] Administration Calcium Acetate 667 mg 06/03/19 17:30 06/12/19 10:23 Phoslo - PO Not Given TIDCM [facility] Chlorhexidine Gluconate 1 applic 06/03/19 22:00 06/11/19 21:13 Hibiclens For Decolonization - TP Not Given HS RADHA Meropenem 500 mg/ Dextrose 100 mls @ 200 mls/hr 06/03/19 17:15 06/12/19 06:22 IVPB 200 mls/hr Q12H [facility] Administration Norepinephrine Bitartrate 8, 500 mls @ 18.75 mls/hr 06/10/19 00:30 06/12/19 02:41 000 mcg/ Dextrose IV 12 mcg/min TITR RAD[facility] 45 mls/hr Administration Protocol 5 MCG/MIN Famotidine/Sodium Chloride 20 mg in 50 mls @ 100 mls/hr 06/10/19 11:15 10:34 Pepcid 20 Mg Premixed Ivpb - IVPB 100 mls/hr DAILY [facility] Administration Vasopressin 50 units/ Sodium 100 mls @ 4 mls/hr 06/10/19 12:15 06/11/19 14:28 Chloride IVPB 4 units/hr ASDIR [facility] 8 mls/hr Administration Protocol 2 UNITS/HR Lactulose 20 gm 06/04/19 20:45 06/12/19 05:26 Cephulac (Oral Use) PO Not Given TID [facility] Methylprednisolone Sodium Succinate 20 mg 06/10/19 12:19 06/12/19 10:34 Solu-Medrol - IVPUSH 20 mg Q8H-IV [facility] Administration Midodrine 5 mg 06/03/19 23:02 06/05/19 14:22 Proamatine - PO 5 mg BID PRN Administration MAP<65mm Hg OR SBP <90 Morphine Sulfate 2 mg 06/11/19 09:11 06/11/19 09:28 Morphine Sulfate IVPUSH 2 mg Q4H PRN Administration PAIN LEVEL 6-10 Nystatin 1 applic 06/05/19 11:24 06/12/19 10:34 Mycostatin Ointment - TP 1 applic BID RAD[facility] Administration Phytonadione 5 mg 06/05/19 11:45 06/12/19 10:23 Mephyton - PO Not Given DAILY [facility] Polyethylene Glycol 17 gm 06/03/19 16:17 Miralax (For Daily Use) - PO BID PRN CONSTIPATION Rifaximin 550 mg 06/03/19 22:00 06/12/19 10:24 Xifaxan - PO Not Given BID RAD[facility] Sodium Bicarbonate 50 meq 06/11/19 10:00 06/12/19 10:35 Sodium Bicarbonate 8.4% - IV 50 meq Q8H-IV [facility] Administration Impression 1. DAVID 2. CKD 3. hep C cirrhosis 4. hyperkalemia 5. sepsis 6. ascites 7. hypervolemic hyponatremia 8. coagulopathy 9. hypernatremia 10. cryoglobulins PLAN - family at bedside - they do not want intubation or dialysis - they do want the pressors to stay on - pt is doing poorly - treat potassium medically, discussed with ICU - pt remains oliguric - monitor pulse ox - pt is hypotensive - prognosis is poor
[2019-06-12] MEDS: VASOPRESSIN 50 UNITS in SODIUM CHLORIDE 97.5 ML IVPB SCH (12:49)
[2019-06-12 12:52] VITALS: BP 92/68; PULSE 92
--- NOTE | 2019-06-13 15:42 | PATH ---
Cytology Non-Gynecological Report Patient Name: HANG DUNHAM Med. Rec. #: [id number] /Age/Gender: 1950 (Age: 68) / F Account: [id number] Location: ICU [facility] Taken: 06/07/2019 Received: 06/10/2019 Reported: 06/13/2019 Physicians: Angelica Mcknight MD Specimen(s) Received PERITONEAL FLUID Clinical History Ascites Final Diagnosis PERITONEAL FLUID, PARACENTESIS: SATISFACTORY FOR EVALUATION. NO MALIGNANT CELLS IDENTIFIED. FEW DEGENERATED MESOTHELIAL CELLS PRESENT. Comment: Prior materials are noted. Electronically Signed Amanda Mahan M.D. Gross Description Approximately 2500 cc of yellow fluid received fresh. Two cytofunnels prepared and Pap stained. One cellblock prepared.
== END 2019-06-12 12:35 | disposition expired | DRG 871 ==
LOC: JER 09:24 → JERBED 12:32 → JICU 17:48
PROVIDERS: ADMIT Family Medicine; ATTEND Family Medicine
PROC: 05HM33Z Insertion of Infusion Device into Right Internal Jugular Vein, Percutaneous Approach (ICD-10-PCS; 2019-06-05)
PROC: 0W9G3ZX Drainage of Peritoneal Cavity, Percutaneous Approach, Diagnostic (ICD-10-PCS; principal; 2019-06-07)
DX: A41.9 Sepsis, unspecified organism (principal); J18.9 Pneumonia, unspecified organism; J96.01 Acute respiratory failure with hypoxia; R18.8 Other ascites; D68.9 Coagulation defect, unspecified; E87.1 Hypo-osmolality and hyponatremia; N39.0 Urinary tract infection, site not specified; E87.0 Hyperosmolality and hypernatremia; E87.5 Hyperkalemia; B18.2 Chronic viral hepatitis C; K74.60 Unspecified cirrhosis of liver; N18.9 Chronic kidney disease, unspecified; E86.1 Hypovolemia; D69.6 Thrombocytopenia, unspecified; J44.9 Chronic obstructive pulmonary disease, unspecified
CPT/HCPCS: 36415; 36600; 71045-TC-FY; 76700-TC; 76775-TC; 76942-TC; 80048; 80053; 80076; 81003; 82042; 82140; 82272; 82375; 82803; 82962; 83050; 83605; 83735; 83880; 84100; 84484; 85025; 85027; 85610; 85730; 87040; 87070; 87075; 87086; 87186; 87205; 87899; 89051; 93005; 93010; 94640; 94660; 99285-25; G0480; J1644; P9047